=== PATIENT | female | born 1945 | race Caucasian/White ===

== ENCOUNTER 2017-09-11 16:28 | Emergency (ER) | payer MEDICARE, BC, OTHER ==
[2017-09-11] MEDS: ONDANSETRON 4MG/2ML VIAL (J2405) IV (17:15)
[2017-09-11] MEDS: KETOROLAC 30 MG/ML VIAL (J1885) IV (17:15)
[2017-09-11] MEDS: NS 500 ML IV ×2 (17:15→18:25)
[2017-09-11 17:40] LABS: BASO # 0.1 10^3/uL (0.0-0.2); BASO % 1.1 % (0.0-1.0); EOS # 0.8 10^3/uL (0.0-0.50); EOS % 5.8 % (0.0-3.0); HEMATOCRIT 43.4 % (36.0-47.0); HEMOGLOBIN 14.4 g/dl (12.0-16.0); IMMATURE GRANULOCYTE # 0.1 10^3/uL (0-0); IMMATURE GRANULOCYTE % 0.4 % (0-0); LYMPH # 1.4 10^3/uL (1.5-4.5); LYMPH % 10.2 % (24.0-44.0); MEAN CORPUSCULAR HEMOGLOBIN 29.7 pg (27.0-33.0); MEAN CORPUSCULAR HGB CONC 33.2 g/dl (32.0-36.5); MEAN CORPUSCULAR VOLUME 89.5 fl (80.0-96.0); MONO # 0.8 10^3/uL (0.0-0.8); NEUTROPHILS # 10.1 10^3/uL (1.8-7.7); NEUTROPHILS % 76.5 % (36.0-66.0); PLATELET COUNT, AUTOMATED 330 10^3/uL (150-450); RED BLOOD COUNT 4.85 10^6/uL (4.00-5.40); RED CELL DISTRIBUTION WIDTH 13.7 % (11.5-14.5); WHITE BLOOD COUNT 13.2 10^3/uL (4.0-10.0)
[2017-09-11 17:45] LABS: KETONE, URINE AUTO RFX TRACE mg/dL (NEGATIVE); MUCUS, URINE RFX SMALL (NEGATIVE); NITRITE, URINE AUTO RFX NEGATIVE (NEGATIVE); RBC, URINE AUTO RFX 10 /HPF (0-3); SQUAM EPITHELIAL CELL UR AURFX 1 /HPF (0-6); WBC, URINE AUTO RFX 7 /HPF (0-3)
[2017-09-11 17:46] LABS: LEUKOCYTE ESTERASE UR AUTO RFX TRACE (NEGATIVE)
[2017-09-11 18:05] LABS: ALBUMIN 3.8 GM/DL (3.2-5.2); ALKALINE PHOSPHATASE 151 U/L (45-117); ALT/SGPT 53 U/L (12-78); ANION GAP 10 MEQ/L (8-16); AST/SGOT 36 U/L (7-37); BILIRUBIN,DIRECT 0.1 MG/DL (0.0-0.2); BILIRUBIN,TOTAL 0.5 MG/DL (0.2-1.0); BLOOD UREA NITROGEN 19 MG/DL (7-18); CALCIUM LEVEL 9.1 MG/DL (8.8-10.2); CARBON DIOXIDE LEVEL 24 MEQ/L (21-32); CHLORIDE LEVEL 108 MEQ/L (98-107); CREATININE FOR GFR 1.37 MG/DL (0.55-1.02); GLOMERULAR FILTRATION RATE 40.3 (>39); GLUCOSE, FASTING 151 MG/DL (70-100); LIPASE 95 U/L (73-393); POTASSIUM SERUM 4.3 MEQ/L (3.5-5.1); SODIUM LEVEL 142 MEQ/L (136-145); TOTAL PROTEIN 7.6 GM/DL (6.4-8.2)
[2017-09-11 18:20] LABS: LACTIC ACID SEPSIS PROTOCOL 3.7 MMOL/L (0.4-2.0)
[2017-09-11 20:26] LABS: ANION GAP 7 MEQ/L (8-16); BLOOD UREA NITROGEN 19 MG/DL (7-18); CALCIUM LEVEL 8.4 MG/DL (8.8-10.2); CARBON DIOXIDE LEVEL 27 MEQ/L (21-32); CHLORIDE LEVEL 114 MEQ/L (98-107); CREATININE FOR GFR 1.21 MG/DL (0.55-1.02); GLOMERULAR FILTRATION RATE 46.6 (>39); GLUCOSE, FASTING 143 MG/DL (70-100); POTASSIUM SERUM 4.7 MEQ/L (3.5-5.1); SODIUM LEVEL 148 MEQ/L (136-145)
[2017-09-11 20:30] LABS: LACTIC ACID SEPSIS PROTOCOL 1.5 MMOL/L (0.4-2.0)
[2017-09-11] MEDS: OXYCODONE/APAP 5MG/325MG(BULK FOR ED) 1 TABLET PO (20:50)
== END 2017-09-11 20:57 | disposition home or self-care (01) ==
LOC: M ED 16:28
DX: N20.1 Calculus of ureter (principal); E03.9 Hypothyroidism, unspecified; Z98.1 Arthrodesis status; Z88.1 Allergy status to other antibiotic agents; Z88.3 Allergy status to other anti-infective agents; Z79.899 Other long term (current) drug therapy; Z79.82 Long term (current) use of aspirin
CPT/HCPCS: J2405

== ENCOUNTER → 2017-09-20 | Outpatient (REF) | payer MEDICARE, OTHER ==
[2017-09-20 15:08] LABS: APPEARANCE, URINE CLOUDY (CLEAR); BACTERIA, URINE AUTO NEGATIVE (NEGATIVE); BILIRUBIN, URINE AUTO NEGATIVE (NEGATIVE); BLOOD, URINE BLOOD NEGATIVE (NEGATIVE); COLOR, URINE YELLOW (YELLOW); GLUCOSE, URINE (UA) AUTO NEGATIVE (NEGATIVE); KETONE, URINE AUTO TRACE mg/dL (NEGATIVE); LEUKOCYTE ESTERASE, URINE AUTO 2+ (NEGATIVE); MUCUS, URINE SMALL (NEGATIVE); NITRITE, URINE AUTO NEGATIVE (NEGATIVE); PROTEIN, URINE AUTO NEGATIVE (NEGATIVE); RBC, URINE AUTO 2 /HPF (0-3); SPECIFIC GRAVITY URINE AUTO 1.029 (1.002-1.035); SQUAMOUS EPITHELIAL CELL UR AU 4 /HPF (0-6); TRANSITIONAL EPITHELIAL AUTO 1 /HPF; URIC ACID CRYSTALS LARGE; WBC, URINE AUTO 12 /HPF (0-3)
== END ==
LOC: M SMT 13:08
DX: N13.2 Hydronephrosis with renal and ureteral calculous obstruction (principal)
CPT/HCPCS: 81001

== ENCOUNTER → 2018-10-13 | Outpatient (CLI) | payer MEDICARE, OTHER ==
[~2018-10-13] MED LIST: ADV250INH INH; ASPI325T PO; BUSP15TA47 PO; ESCI10TA2 PO; FLOM0.4C39 PO; FLON1SPR; GABA-1171 PO; LEVO25TA5 PO; LORA0.5T11 PO; RANI300T PO; SIMV20TA2 PO; TRAM50TA2 PO
--- NOTE | 2018-10-23 00:42 | ECWPNPC ---
PATIENT NAME: SANTOSH ARNDT : 1945 GENDER: FEMALE VISIT DATE: 10/13/2018 DISCHARGE DATE: 10/13/18 1032 VISIT LOCKED DATE TIME: PHYSICIAN: SUSANNA FRANCO MD RESOURCE: SUSANNA FRANCO MD REASON FOR APPOINTMENT 1. BACK PAIN HISTORY OF PRESENT ILLNESS FALL RISK SCREENING: SCREENING : NO FALLS IN THE PAST YEAR. PAIN SCREENING: PATIENT HAS A COMPLAINT OF ACUTE OR CHRONIC PAIN :YES 72 YEAR OLD FEMALE PATIENT WITH A HISTORY OF CHRONIC LOW BACK PAIN. THE PATIENT DESCRIBES THE PAIN SHARP AND INTERMITTENT WITH A PAIN SCORE OF 0-7/10 DEPENDING ON PHYSICAL ACTIVITY. THE PATIENT SAYS THAT SHE HAS HAD THIS PAIN FOR MANY YEARS AND DOES NOT RECALL A SPECIFIC INCIDENT THAT CAUSED HER PAIN TO START. THE PATIENT SAYS THAT HER PAIN INCREASES WHEN SHE IS DOING A LOT OF ACTIVITY FOR LONG PERIODS OF TIME. THE PATIENT SAYS THAT SHE HAS TRIED SEVERAL OPTIONS FOR PAIN MANAGEMENT IN THE PAST INCLUDING PHYSICAL THERAPY, CHIROPRACTOR, MEDICATION, AND INJECTIONS. THE PATIENT SAYS THAT SHE HAS A HISTORY OF ARTHRITIS OVER BOTH KNEES. PATIENT DENIES UNEXPLAINABLE WEIGHT LOSS, FEVER, CHILLS, NEW CHANGES ON HER URINARY OR BOWEL CONTROL. CURRENT MEDICATIONS TAKING LEXAPRO 10 MG TABLET 1 TABLET ORALLY ONCE A DAY TAKING LEVOTHYROXINE SODIUM 25 MCG TABLET 1 TABLET ON AN EMPTY STOMACH IN THE MORNING ORALLY ONCE A DAY TAKING OMEPRAZOLE 40 MG CAPSULE DELAYED RELEASE 1 CAPSULE ORALLY ONCE A DAY TAKING ASA 2 81 MG TABS ORAL TAKING ZYRTEC ALLERGY 10 MG TABLET 1 TABLET NEEDED ORALLY ONCE A DAY TAKING FLONASE ALLERGY RELIEF 50 MCG/ACT SUSPENSION 1 SPRAY IN EACH NOSTRIL NASALLY ONCE A DAY TAKING ADVAIR DISKUS 250-50 MCG/DOSE AEROSOL POWDER BREATH ACTIVATED 1 PUFF INHALATION TWICE A DAY TAKING TRAMADOL HCL 50 MG TABLET 1 TABLET NEEDED ORALLY EVERY 6 HRS TAKING TENS THERAPY PAIN RELIEF - DEVICE TAKING GABAPENTIN 100 MG CAPSULE 1 CAPSULE ORALLY TWICE A DAY TAKING ROSUVASTATIN CALCIUM 5 MG TABLET 1 TABLET ORALLY ONCE A DAY TAKING CYCLOBENZAPRINE HCL 5 MG TABLET 1 TABLET NEEDED ORALLY THREE TIMES A DAY NOT-TAKING SIMVASTATIN 20 MG TABLET 1 TABLET IN THE EVENING ORALLY ONCE A DAY MEDICATION LIST REVIEWED AND RECONCILED WITH THE PATIENT PAST MEDICAL HISTORY CHRONIC BACK PAIN DDD HYPOTHYROIDISM ALLERGIES ELEVATED CHOLESTEROL DEPRESSION GERD OSTEOARTHRITIS ANXIETY ALLERGIES CLARITHROMYCIN: ANAPHYLAXIS: ALLERGY SPORANOX: HIVES: ALLERGY SURGICAL HISTORY HYSTERECTOMY GALLBLADDER REMOVAL BILATERAL TORN MENISCUS FUSION OF CERVIAL NECK SINUS SURGERY X3 FAMILY HISTORY FATHER: MOTHER: DAUGHTER(S): , DIAGNOSED WITH CANCER 1DAUGHTER(S) . DAUGHTER PASSED FROM CANCER OF THE BILE DUCTS 2 YRS AGO. PATIENT HAS KIDNEY STONES AND PATIENT IS ADOPTED. SOCIAL HISTORY GENERAL: TOBACCO USE ARE YOU A:NONSMOKER ALCOHOL SCREENING DID YOU HAVE A DRINK CONTAINING ALCOHOL IN THE PAST YEAR?YES HOW OFTEN DID YOU HAVE A DRINK CONTAINING ALCOHOL IN THE PAST YEAR?MONTHLY OR LESS (1 POINT) HOW MANY DRINKS DID YOU HAVE ON A TYPICAL DAY WHEN YOU WERE DRINKING IN THE PAST YEAR?1 OR 2 (0 POINTS) HOW OFTEN DID YOU HAVE SIX OR MORE DRINKS ON ONE OCCASION IN THE PAST YEAR?NEVER (0 POINTS) POINTS1 INTERPRETATIONNEGATIVE RECREATIONAL DRUG USE DRUG USE?NO CAFFEINE CAFFEINE USE?YES HOW OFTEN AND HOW MUCH? COFFEE AD[employer] [id number] YARSANI LANGUAGE LANGUAGES SPOKEN:ARABIC EDUCATION LEVEL OF EDUCATION:FINISHED COLLEGE LEARNING BARRIERS / SPECIAL NEEDS BARRIERS TO LEARNING?NO HEARING IMPAIRED?YES :HEARING AIDES VISION IMPAIRED?NO COGNITIVELY IMPAIRED?NO READINESS TO LEARN?YES LEARNING PREFERENCES?YES :HANDOUTS, DEMONSTRATION/VERBAL INSTRUCTION LEARNING CAPABILITIES PRESENT?YES EMOTIONAL BARRIERS?NO SPECIAL DEVICES?NO SUBMARINE WORKER NEEDED?NO OCCUPATION: RETIRED. DIET: REGULAR. MARITAL STATUS: . PAIN CLINIC PFS, CLERGY, PUBLIC HEALTH REFERRALS HAS THE PATIENT BEEN EDUCATED REGARDING HIS/HER PLAN OF CARE?YES HAS THE PATIENT BEEN EDUCATED REGARDING PAIN, THE RISK FOR PAIN, THE IMPORTANCE OF EFFECTIVE PAIN MANAGEMENT, AND THE PAIN ASSESSMENT PROCESS?YES ADVANCE DIRECTIVE ADVANCE DIRECTIVE DISCUSSED WITH PATIENT:YES HCP - PATEL QUEEN (STEP DAUGHTER) & HANNAH OH (FRIEND), DOCUMENT NOT PROVIDED. REVIEWED WITH PATIENT 10/13/18 6639 JS. HOSPITALIZATION/MAJOR DIAGNOSTIC PROCEDURE SURGERY RELATED CERVICAL FRACTURE REVIEW OF SYSTEMS REVIEWED BY: PROVIDER: SUSANNA FRANCO MD . CONSTITUTIONAL: ANY CHANGE IN YOUR MEDICAL CONDITION? NO . CHILLS NO . FEVER NO . INFECTION: DO YOU HAVE NEW INFECTIONS? NO . DO YOU HAVE HISTORY OF MRSA? NO . MUSCULOSKELETAL: ANY NEW PATTERNS OF PAIN OR NUMBNESS? NO . SYTEMIC LUPUS NO . GASTROENTEROLOGY: ANY NEW CHANGE IN BOWEL CONTROL? NO . BARRETTS ESOPHAGUS NO . CIRRHOSIS NO . HEPATITIS NO . LIVER FAILURE NO . ACID REFLUX YES . UNEXPLAINED WEIGHT LOSS NO . GENITOURINARY: ANY NEW CHANGE IN BLADDER CONTROL? NO . IS THERE A CHANCE YOU COULD BE ? NO . HEMATOLOGY/LYMPH: DO YOU TAKE ANY BLOOD THINNERS? (FOR EXAMPLE- COUMADIN, PLAVIX, AGGRENOX, PLATEL, PRADAXA, OR XARELTO) NO . WHEN WAS YOUR LAST DOSE? DATE: TIME: . LOW PLATELET COUNT NO . SICKLE CELL DISEASE NO . VON WILLIEBRANDS NO . FACTOR V LEIDEN NO . THALLASEMIA NO . ANEMIA NO . EASY BRUISING NO . NEUROLOGY: HAVE YOU FALLEN IN THE PAST 12 MONTHS? NO . ANY NEW EXTREMITY NUMBNESS OR WEAKNESS? NO . HEAD INJURY NO . DEMENTIA NO . CEREBRAL PALSY NO . MULTIPLE SCLEROSIS NO . DIZZINESS NO . HEADACHE NO . STROKES NO . VERTIGO NO . CARDIOLOGY: DO YOU HAVE A PACEMAKER OR DEFIBRILLATOR? NO . ANGINA NO . HEART ATTACK NO . HEART SURGERY NO . CONGESTIVE HEART FAILURE/FLUID OVERLOAD NO . CHEST PAIN NO . HIGH BLOOD PRESSURE NO . IRREGULAR HEART BEAT YES, STATES OCCASSIONALLY, SAW NETWORK SYSTEMS ENGINEER REGARDING AND THEY STATED THERE WAS NOTHING TO BE CONCERNED ABOUT AND THAT IT WAS JUST A PROCESS OF AGING . RESPIRATORY: HAVE YOU BEEN SICK IN THE PAST WEEK? NO . FEVER NO . FLU LIKE SYMPTOMS? NO . CPAP NO . BYPAP NO . ASTHMA YES, STATES SHE BECOMES WHEEZY RELATED TO SINUS INFECTIONS . EMPHYSEMA NO . CHRONIC LUNG DISEASES NO . SHORTNESS OF BREATH ON EXERTION NO . COUGH NO . SNORING NO . INTEGUMENTARY: DO YOU HAVE ANY RASHES OR OPEN SORES? NO . ALLERGIC/IMMUNO: ARE YOU ALLERGIC TO IV DYE? NO . ANY NEW ALLERGIES? NO . PSYCHIATRIC: DO YOU HAVE THOUGHTS OF HURTING YOURSELF OR SOMEONE ELSE? NO . ARE YOU ABUSED, NEGLECTED, OR IN AN UNSAFE ENVIRONMENT? NO . ENDOCRINOLOGY: ARE YOU DIABETIC? NO . THYROID DISORDER HYPOTHYROID . OTHER: DO YOU NEED ANY PRESCRIPTIONS? NO . IF YES, PLEASE LIST: ____ . ANY NEW PROBLEMS WITH YOUR MEDICATIONS? NO . WHEN DID YOU LAST EAT? ____ . WHEN DID YOU LAST DRINK? ____ . WHAT DID YOU LAST DRINK? ____ . NAME OF PERSON DRIVING YOU HOME? ____ . DO YOU HAVE ANY OTHER QUESTIONS OR CONCERNS NO . VITAL SIGNS WT 171.2 LBS, HT 62 IN, BMI 31.31 INDEX, BP 133/71 MM HG, HR 96 /MIN, RR 18 /MIN, TEMP 97.3 F, OXYGEN SAT % 95%, SAFE IN ENV? (Y/N) YES, NA INITIALS AW 0916, REVIEWED BY: JS. EXAMINATION GENERAL EXAMINATION: PATIENT IS ALERT O X 3 AND COOPERATIVE. LUNGS CLEAR, TO AUSCULTATION. HEART: NO MURMURS OR GALLOPS; FACIAL CRANIAL NERVES ARE GROSSLY NORMAL. GOOD SYMMETRY OF FACIAL MUSCLE MOVEMENT. NORMAL VISUAL LITTLE. PATIENT IS LIMPING FROM HER RIGHT LEG. TENDERNESS IN THE LOW BACK AREA. PRESENCE OF TRIGGER POINTS AND BANDS OF TISSUE WITH RESTRICTION OF MOVEMENT OF THE BACK. MRI OF THE LUMBAR SPINE DONE ON 12/30/2017 SHOWS FACET ARTHROPATHY CHANGES AT MULTIPLE LEVELS. MRI OF THE THORACIC SPINE DONE ON 12/30/2017 SHOWS FACET ARTHROPATHY CHANGES AT MULTIPLE LEVELS AND A COMPRESSION FRACTURE AT T4 THROUGH T6. 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 ARNDT'S PAIN MANAGEMENT CASE. THE PATIENT WILL FOLLOW UP WITH HER PRIMARY REGARDING HER CALCIUM LEVELS DUE TO THE HISTORY OF COMPRESSION FRACTURES. DUE TO THE TRIGGER POINTS, BANDS OF TISSUE, AND RESTRICTION OF MOVEMENT, I WOULD LIKE TO MOVE FORWARD WITH A TRIGGER POINT INJECTION AT THIS TIME. WE DISCUSSED THE BENEFITS, RISKS, AND ALTERNATIVES OF THE INJECTION AND THE PATIENT WOULD LIKE TO PROCEED. DEPENDING ON THE RESULTS OF THE INJECTION, THE PATIENT WILL CONSIDER A THERAPEUTIC LUMBAR FACET BLOCK. THE PATIENT WILL FOLLOW UP 3 WEEKS AFTER THE INJECTION. INSTRUCTIONS WERE GIVEN, QUESTIONS WERE ANSWERED, PATIENT REPORTS UNDERSTANDING AND AGREES WITH THE PLAN. I, BIN PORRAS, DOCUMENTED THE ABOVE INFORMATION ACTING A SCRIBE FOR DR. FRANCO. I HAVE REVIEWED THE ABOVE DOCUMENT, WRITTEN BY BIN MURRAY AND I VERIFY THAT IT IS ACCURATE. DEAR DR. RAE:THANK YOU FOR YOUR KIND REFERRAL OF MRS. ARNDT. IF YOU WANT TO DISCUSS HER CASE WITH ME PLEASE CALL ME AT THE PAIN CENTER AT [phone]. SINCERELY,SUSANNA FRANCO, [facility]. PROCEDURE CODES FA211 ESTABILISHED PATIENT [facility] FACILITY CHARGE G1341 CURRENT MEDS W/DOSAGES DOCUMENTED G0745 PAIN ASSESS POS TOOL F/U PLAN DOC DISPOSITION & COMMUNICATION FOLLOW UP TPI & F/U 3 WEEKS AFTER ELECTRONICALLY SIGNED BY SUSANNA FRANCO MD, ON 10/22/2018 AT 08:01 AM EDT DISCLAIMER : THIS IS A VISIT SUMMARY EXTRACTED FROM THE [employer] CHART. IT IS NOT A COPY OF THE [employer] PROGRESS NOTE. MTDD
== END ==
LOC: M PAIN 09:15
PROVIDERS: ATTEND Anesthesiology
DX: M79.18 Myalgia, other site (principal); M47.814 Spondylosis without myelopathy or radiculopathy, thoracic region; M47.816 Spondylosis without myelopathy or radiculopathy, lumbar region; E03.9 Hypothyroidism, unspecified; E78.00 Pure hypercholesterolemia, unspecified; Z86.59 Personal history of other mental and behavioral disorders; K21.9 Gastro-esophageal reflux disease without esophagitis; M19.90 Unspecified osteoarthritis, unspecified site; J45.909 Unspecified asthma, uncomplicated; Z88.1 Allergy status to other antibiotic agents; Z88.8 Allergy status to other drugs, medicaments and biological substances; Z79.82 Long term (current) use of aspirin; Z79.899 Other long term (current) drug therapy

== ENCOUNTER → 2018-11-01 | Outpatient (CLI) | payer MEDICARE, OTHER ==
[~2018-11-01] MED LIST changes: +BUPIVACAINE HCL 0.25% 10 ML VIAL As Ordered ONE; +BUPIVACAINE HCL 0.25% 30 ML VIAL As Ordered ONE; +TRIAMCINOLONE ACETONIDE SUSP 40 MG/ML VIAL (J3301) As Ordered ONE; +diazePAM 5 MG TAB As Ordered ONE
--- NOTE | 2018-11-13 00:24 | ECWPNPC ---
PATIENT NAME: SANTOSH ARNDT : 1945 GENDER: FEMALE VISIT DATE: 11/01/2018 DISCHARGE DATE: 11/01/18 1102 VISIT LOCKED DATE TIME: PHYSICIAN: SUSANNA FRANCO MD RESOURCE: SUSANNA FRANCO MD REASON FOR APPOINTMENT 1. TPI HISTORY OF PRESENT ILLNESS HISTORY OF PRESENT ILLNESS: PAIN THE PATIENT DESCRIBES THE PAIN... FALL RISK SCREENING: SCREENING : NO FALLS IN THE PAST YEAR. CURRENT MEDICATIONS TAKING LEXAPRO 10 MG TABLET 1 TABLET ORALLY ONCE A DAY, NOTES: 0800 TAKING LEVOTHYROXINE SODIUM 25 MCG TABLET 1 TABLET ON AN EMPTY STOMACH IN THE MORNING ORALLY ONCE A DAY, NOTES: 0800 TAKING OMEPRAZOLE 40 MG CAPSULE DELAYED RELEASE 1 CAPSULE ORALLY ONCE A DAY, NOTES: 0800 TAKING ASA 2 81 MG TABS ORAL , NOTES: 10/31/181899 TAKING ZYRTEC ALLERGY 10 MG TABLET 1 TABLET NEEDED ORALLY ONCE A DAY, NOTES: NONE RECENT TAKING FLONASE ALLERGY RELIEF 50 MCG/ACT SUSPENSION 1 SPRAY IN EACH NOSTRIL NASALLY ONCE A DAY, NOTES: 10/31/181899 TAKING ADVAIR DISKUS 250-50 MCG/DOSE AEROSOL POWDER BREATH ACTIVATED 1 PUFF INHALATION TWICE A DAY, NOTES: NONE RECENT TAKING TRAMADOL HCL 50 MG TABLET 1 TABLET NEEDED ORALLY EVERY 6 HRS, NOTES: 10/30/18 TAKING TENS THERAPY PAIN RELIEF - DEVICE TAKING GABAPENTIN 100 MG CAPSULE 1 CAPSULE ORALLY TWICE A DAY, NOTES: 10/31/181899 TAKING ROSUVASTATIN CALCIUM 5 MG TABLET 1 TABLET ORALLY ONCE A DAY, NOTES: 10/31/181899 TAKING CYCLOBENZAPRINE HCL 5 MG TABLET 1 TABLET NEEDED ORALLY THREE TIMES A DAY, NOTES: 10/30/18 NOT-TAKING SIMVASTATIN 20 MG TABLET 1 TABLET IN THE EVENING ORALLY ONCE A DAY MEDICATION LIST REVIEWED AND RECONCILED WITH THE PATIENT PAST MEDICAL HISTORY CHRONIC BACK PAIN DDD HYPOTHYROIDISM ALLERGIES ELEVATED CHOLESTEROL DEPRESSION GERD OSTEOARTHRITIS ANXIETY ALLERGIES CLARITHROMYCIN: ANAPHYLAXIS - ALLERGY SPORANOX: HIVES - ALLERGY SURGICAL HISTORY HYSTERECTOMY GALLBLADDER REMOVAL BILATERAL TORN MENISCUS FUSION OF CERVIAL NECK SINUS SURGERY X3 FAMILY HISTORY FATHER: MOTHER: DAUGHTER(S): , DIAGNOSED WITH CANCER 1DAUGHTER(S) . DAUGHTER PASSED FROM CANCER OF THE BILE DUCTS 2 YRS AGO. PATIENT HAS KIDNEY STONES AND PATIENT IS ADOPTED. SOCIAL HISTORY GENERAL: TOBACCO USE ARE YOU A:NONSMOKER LATEX QUESTIONNAIRE LATEX ALLERGY : HAVE YOU EVER DEVELOPED ANY TYPE OF REACTION AFTER HANDLING LATEX PRODUCTS SUCH RUBBER GLOVES, CONDOMS, DIAPHRAGMS, BALLOONS, SOCKS, OR UNDERWEAR?NO LATEX ALLERGY : HAVE YOU EVER DEVELOPED ANY TYPE OF REACTION DURING OR AFTER DENTAL APPOINTMENT, VAGINAL/RECTAL EXAMINATION, SURGICAL PROCEDURE, OR ANY OTHER EXPOSURE?NO LATEX RISK : HAVE YOU EVER HAD ANY DIFFICULTY BREATHING OR HIVES AFTER EATING OR HANDLING ANY FRUITS, OR VEGETABLES; SUCH KIWI, BANANAS, STONE FRUITS, OR CHESTNUTSNO LATEX RISK : DO YOU HAVE A PREVIOUS PERSONAL HISTORY OF MORE THAN NINE SURGERIES, SPINA BIFIDA, OR REPEATED CATHERTIZATIONS? NO LATEX RISK : ARE YOU FREQUENTLY EXPOSED TO LATEX PRODUCTS IN YOUR OCCUPATION?NO DATE ASKED : 11/01/2018 ALCOHOL SCREENING DID YOU HAVE A DRINK CONTAINING ALCOHOL IN THE PAST YEAR?YES HOW OFTEN DID YOU HAVE A DRINK CONTAINING ALCOHOL IN THE PAST YEAR?MONTHLY OR LESS (1 POINT) HOW MANY DRINKS DID YOU HAVE ON A TYPICAL DAY WHEN YOU WERE DRINKING IN THE PAST YEAR?1 OR 2 (0 POINTS) HOW OFTEN DID YOU HAVE SIX OR MORE DRINKS ON ONE OCCASION IN THE PAST YEAR?NEVER (0 POINTS) POINTS1 INTERPRETATIONNEGATIVE RECREATIONAL DRUG USE DRUG USE?NO CAFFEINE CAFFEINE USE?YES HOW OFTEN AND HOW MUCH? COFFEE DENOMINATIONAL [id number] [employer] LANGUAGE LANGUAGES SPOKEN:YORUBA EDUCATION LEVEL OF EDUCATION:FINISHED COLLEGE LEARNING BARRIERS / SPECIAL NEEDS BARRIERS TO LEARNING?NO HEARING IMPAIRED?YES :HEARING AIDES VISION IMPAIRED?NO COGNITIVELY IMPAIRED?NO READINESS TO LEARN?YES LEARNING PREFERENCES?YES :HANDOUTS, DEMONSTRATION/VERBAL INSTRUCTION LEARNING CAPABILITIES PRESENT?YES EMOTIONAL BARRIERS?NO SPECIAL DEVICES?NO SKI LIFT OPERATOR NEEDED?NO OCCUPATION: RETIRED. DIET: REGULAR. MARITAL STATUS: . PAIN CLINIC PFS, CLERGY, PUBLIC HEALTH REFERRALS HAS THE PATIENT BEEN EDUCATED REGARDING HIS/HER PLAN OF CARE?YES HAS THE PATIENT BEEN EDUCATED REGARDING PAIN, THE RISK FOR PAIN, THE IMPORTANCE OF EFFECTIVE PAIN MANAGEMENT, AND THE PAIN ASSESSMENT PROCESS?YES ADVANCE DIRECTIVE ADVANCE DIRECTIVE DISCUSSED WITH PATIENT:YES HCP - PATEL QUEEN (STEP DAUGHTER) & HANNAH OH (FRIEND), DOCUMENT NOT PROVIDED. REVIEWED WITH PATIENT 10/13/18 1627 JSREVIEWED WITH PATIENT 11/01/18 1009 JS. HOSPITALIZATION/MAJOR DIAGNOSTIC PROCEDURE SURGERY RELATED CERVICAL FRACTURE REVIEW OF SYSTEMS REVIEWED BY: PROVIDER: . CONSTITUTIONAL: ANY CHANGE IN YOUR MEDICAL CONDITION? NO . CHILLS NO . FEVER NO . INFECTION: DO YOU HAVE NEW INFECTIONS? NO . DO YOU HAVE HISTORY OF MRSA? NO . MUSCULOSKELETAL: ANY NEW PATTERNS OF PAIN OR NUMBNESS? NO . GASTROENTEROLOGY: ANY NEW CHANGE IN BOWEL CONTROL? NO . GENITOURINARY: ANY NEW CHANGE IN BLADDER CONTROL? NO . IS THERE A CHANCE YOU COULD BE ? NO . HEMATOLOGY/LYMPH: DO YOU TAKE ANY BLOOD THINNERS? (FOR EXAMPLE- COUMADIN, PLAVIX, AGGRENOX, PLATEL, PRADAXA, OR XARELTO) NO . WHEN WAS YOUR LAST DOSE? DATE: TIME: . NEUROLOGY: HAVE YOU FALLEN IN THE PAST 12 MONTHS? NO . ANY NEW EXTREMITY NUMBNESS OR WEAKNESS? NO . CARDIOLOGY: DO YOU HAVE A PACEMAKER OR DEFIBRILLATOR? NO . RESPIRATORY: HAVE YOU BEEN SICK IN THE PAST WEEK? NO . FEVER NO . FLU LIKE SYMPTOMS? NO . COUGH NO . INTEGUMENTARY: DO YOU HAVE ANY RASHES OR OPEN SORES? NO . ALLERGIC/IMMUNO: ARE YOU ALLERGIC TO IV DYE? NO . ANY NEW ALLERGIES? NO . PSYCHIATRIC: DO YOU HAVE THOUGHTS OF HURTING YOURSELF OR SOMEONE ELSE? NO . ARE YOU ABUSED, NEGLECTED, OR IN AN UNSAFE ENVIRONMENT? NO . ENDOCRINOLOGY: ARE YOU DIABETIC? NO . OTHER: DO YOU NEED ANY PRESCRIPTIONS? NO . IF YES, PLEASE LIST: ____ . ANY NEW PROBLEMS WITH YOUR MEDICATIONS? NO . WHEN DID YOU LAST EAT? ____10/31/181999 . WHEN DID YOU LAST DRINK? ____11/01/18 0800 . WHAT DID YOU LAST DRINK? ____WATER . NAME OF PERSON DRIVING YOU HOME? ____JIM () . DO YOU HAVE ANY OTHER QUESTIONS OR CONCERNS NO . VITAL SIGNS WT 169.6 LBS, HT 62 IN, BMI 31.02 INDEX, BP 125/75 MM HG, HR 95 /MIN, RR 18 /MIN, TEMP 97.6 F, OXYGEN SAT % 92%, SAFE IN ENV? (Y/N) YES, NA INITIALS AW 1001, REVIEWED BY: JS. ASSESSMENTS MYALGIA, OTHER SITE - M79.18 (PRIMARY) PROCEDURES PN TRIGGER POINT INJECTION WITH STEROIDS PRE PROCEDURE DIAGNOSIS 1. MYALGIA 2. PAIN AT LEFT THORACIC AREA POST PROCEDURE DIAGNOSIS 1. MYALGIA 2. PAIN AT LEFT THORACIC AREA PROCEDURE TRIGGER POINT INJECTION AT LEFT THORACIC AREA SURGEON DR. SUSANNA FRANCO STATOR PLATE WASHER NONE ANESTHESIA LOCAL PRE PROCEDURE NOTE THE PATIENT HAS A HISTORY OF CHRONIC PAIN AT THE LEFT THORACIC AREA. I EVALUATE THE PATIENT AND REVIEWED THE CHART. THERE IS EVIDENCE OF BANDS OF TISSUE WITH RESTRICTION OF MOVEMENT AND PRESENCE OF TRIGGER POINT AT THE AFFECTED AREA. I WENT OVER THE RISKS, ALTERNATIVES, AND BENEFITS ASSOCIATED WITH THIS PROCEDURE. THE PATIENT WOULD LIKE TO PROCEED AND GIVE CONSENT TO PERFORMED THE PROCEDURE. THE PATIENT DENIES UNEXPLAINABLE WEIGHT LOSS, FEVER, CHILLS, OR NEW CHANGES IN URINARY OR BOWEL CONTROL DESCRIPTION OF PROCEDURE THE PATIENT WAS BROUGHT TO THE PROCEDURE ROOM AND PLACED IN THE SITTING POSITION. THE AREA WAS CLEANED WITH ALCOHOL. THE PROCEDURE WAS DONE USING ASEPTIC STERILE TECHNIQUE. I CHECKED LATERALITY AND THE LEVEL WHERE THE PROCEDURE WAS GOING TO BE PERFORMED WITH THE PATIENT AND THE SUPPORTING STAFF AT THE MOMENT OF THE TIME OUT IN THE PROCEDURE ROOM. USING A 25-GAUGE NEEDLE, TRIGGER POINTS WERE INJECTED AT THE LEFT THORACIC AREA WITH A TOTAL OF 40 ML OF BUPIVACAINE 0.25% AND KENALOG 40 MG. THERE WAS NO EVIDENCE OF BLOOD, PARESTHESIA OR CEREBROSPINAL FLUID DURING THE PROCEDURE. THE PATIENT WAS SENT TO THE RECOVERY ROOM. THE PATIENT WAS MOVING THE EXTREMITIES AND DOING WELL. THERE WAS NO COMPLICATION DURING THE PROCEDURE POST PROCEDURE NOTE THE PATIENT WILL BE SEEN IN A FOLLOW UP IN THE NEXT FEW WEEKS. INSTRUCTIONS WERE GIVEN, QUESTIONS WERE ANSWERED, AND THE PATIENT EXPRESSED UNDERSTANDING AND AGREES WITH THE PLAN. I, BIN PORRAS, DOCUMENTED THE ABOVE INFORMATION ACTING A SCRIBE FOR DR. FARNCO. I HAVE REVIEWED THE ABOVE DOCUMENT, WRITTEN BY BIN MURRAY AND I VERIFY THAT IT IS ACCURATE. PROCEDURE CODES 67892 INJ TRIGGER POINT /2 [facility] [place] DISPOSITION & COMMUNICATION FOLLOW UP 3 WEEKS ELECTRONICALLY SIGNED BY SUSANNA FRANCO MD, MD ON 11/12/2018 AT 07:31 PM EDT DISCLAIMER : THIS IS A VISIT SUMMARY EXTRACTED FROM THE [employer] CHART. IT IS NOT A COPY OF THE [employer] PROGRESS NOTE. QING
== END ==
LOC: M PAIN 09:45
PROVIDERS: ATTEND Anesthesiology
DX: M79.18 Myalgia, other site (principal); M54.6 Pain in thoracic spine; E03.9 Hypothyroidism, unspecified; K21.9 Gastro-esophageal reflux disease without esophagitis; M19.90 Unspecified osteoarthritis, unspecified site; F41.9 Anxiety disorder, unspecified; F32.9 Major depressive disorder, single episode, unspecified; Z79.82 Long term (current) use of aspirin; Z79.899 Other long term (current) drug therapy; Z88.1 Allergy status to other antibiotic agents; Z88.8 Allergy status to other drugs, medicaments and biological substances
CPT/HCPCS: 20552; J3301

== ENCOUNTER → 2018-11-22 | Outpatient (CLI) | payer MEDICARE, OTHER ==
[~2018-11-22] MED LIST changes: +ASPI-1 PO; -ASPI325T PO; -BUPIVACAINE HCL 0.25% 10 ML VIAL As Ordered ONE; -BUPIVACAINE HCL 0.25% 30 ML VIAL As Ordered ONE; -TRIAMCINOLONE ACETONIDE SUSP 40 MG/ML VIAL (J3301) As Ordered ONE; -diazePAM 5 MG TAB As Ordered ONE
--- NOTE | 2018-11-24 01:25 | ECWPNPC ---
PATIENT NAME: SANTOSH ARNDT : 1945 GENDER: FEMALE VISIT DATE: 11/22/2018 DISCHARGE DATE: 11/22/18 1056 VISIT LOCKED DATE TIME: PHYSICIAN: PATEL BAIN RESOURCE: PATEL BAIN REASON FOR APPOINTMENT 1. POST TPI HISTORY OF PRESENT ILLNESS HISTORY OF PRESENT ILLNESS: PAIN THE PATIENT DESCRIBES THE PAIN... PT IS A 71 YEAR OLD FEMALE WWITH HX OF CHRONIC LOW AND UPPER BACK PAIN. SHE HAS HAS TPI THORACIC REGION 10/31 WITH GOOD RESULT FOR AT LEAST 3 WEEKS. SHE SAYS SHE IS BEGINNING TO FEEL PAIN AGAIN.HER PAIN TODAY IS 3/10 BUT CAN GO UP TO 7/10 WITH MOVMENT. FALL RISK SCREENING: SCREENING :NO FALLS REPORTED IN THE LAST YEAR CURRENT MEDICATIONS TAKING LEXAPRO 10 MG TABLET 1 TABLET ORALLY ONCE A DAY TAKING LEVOTHYROXINE SODIUM 25 MCG TABLET 1 TABLET ON AN EMPTY STOMACH IN THE MORNING ORALLY ONCE A DAY TAKING OMEPRAZOLE 40 MG CAPSULE DELAYED RELEASE 1 CAPSULE ORALLY ONCE A DAY TAKING ASA 2 81 MG TABS ORAL TAKING ZYRTEC ALLERGY 10 MG TABLET 1 TABLET NEEDED ORALLY ONCE A DAY TAKING FLONASE ALLERGY RELIEF 50 MCG/ACT SUSPENSION 1 SPRAY IN EACH NOSTRIL NASALLY ONCE A DAY TAKING ADVAIR DISKUS 250-50 MCG/DOSE AEROSOL POWDER BREATH ACTIVATED 1 PUFF INHALATION TWICE A DAY TAKING TRAMADOL HCL 50 MG TABLET 1 TABLET NEEDED ORALLY EVERY 6 HRS TAKING TENS THERAPY PAIN RELIEF - DEVICE TAKING ROSUVASTATIN CALCIUM 5 MG TABLET 1 TABLET ORALLY ONCE A DAY TAKING CYCLOBENZAPRINE HCL 5 MG TABLET 1 TABLET NEEDED ORALLY THREE TIMES A DAY NOT-TAKING GABAPENTIN 100 MG CAPSULE 1 CAPSULE ORALLY TWICE A DAY NOT-TAKING SIMVASTATIN 20 MG TABLET 1 TABLET IN THE EVENING ORALLY ONCE A DAY MEDICATION LIST REVIEWED AND RECONCILED WITH THE PATIENT PAST MEDICAL HISTORY CHRONIC BACK PAIN DDD HYPOTHYROIDISM ALLERGIES ELEVATED CHOLESTEROL DEPRESSION GERD OSTEOARTHRITIS ANXIETY ALLERGIES CLARITHROMYCIN: ANAPHYLAXIS - ALLERGY SPORANOX: HIVES - ALLERGY SURGICAL HISTORY HYSTERECTOMY GALLBLADDER REMOVAL BILATERAL TORN MENISCUS FUSION OF CERVIAL NECK SINUS SURGERY X3 FAMILY HISTORY FATHER: MOTHER: DAUGHTER(S): , DIAGNOSED WITH CANCER 1DAUGHTER(S) . DAUGHTER PASSED FROM CANCER OF THE BILE DUCTS 2 YRS AGO. PATIENT HAS KIDNEY STONES AND PATIENT IS ADOPTED. SOCIAL HISTORY GENERAL: TOBACCO USE ARE YOU A:NONSMOKER LATEX QUESTIONNAIRE LATEX ALLERGY : HAVE YOU EVER DEVELOPED ANY TYPE OF REACTION AFTER HANDLING LATEX PRODUCTS SUCH RUBBER GLOVES, CONDOMS, DIAPHRAGMS, BALLOONS, SOCKS, OR UNDERWEAR?NO LATEX ALLERGY : HAVE YOU EVER DEVELOPED ANY TYPE OF REACTION DURING OR AFTER DENTAL APPOINTMENT, VAGINAL/RECTAL EXAMINATION, SURGICAL PROCEDURE, OR ANY OTHER EXPOSURE?NO LATEX RISK : HAVE YOU EVER HAD ANY DIFFICULTY BREATHING OR HIVES AFTER EATING OR HANDLING ANY FRUITS, OR VEGETABLES; SUCH KIWI, BANANAS, STONE FRUITS, OR CHESTNUTSNO LATEX RISK : DO YOU HAVE A PREVIOUS PERSONAL HISTORY OF MORE THAN NINE SURGERIES, SPINA BIFIDA, OR REPEATED CATHERTIZATIONS? NO LATEX RISK : ARE YOU FREQUENTLY EXPOSED TO LATEX PRODUCTS IN YOUR OCCUPATION?NO DATE ASKED : 11/22/2018 ALCOHOL SCREENING DID YOU HAVE A DRINK CONTAINING ALCOHOL IN THE PAST YEAR?YES HOW OFTEN DID YOU HAVE A DRINK CONTAINING ALCOHOL IN THE PAST YEAR?MONTHLY OR LESS (1 POINT) HOW MANY DRINKS DID YOU HAVE ON A TYPICAL DAY WHEN YOU WERE DRINKING IN THE PAST YEAR?1 OR 2 (0 POINTS) HOW OFTEN DID YOU HAVE SIX OR MORE DRINKS ON ONE OCCASION IN THE PAST YEAR?NEVER (0 POINTS) POINTS1 INTERPRETATIONNEGATIVE RECREATIONAL DRUG USE DRUG USE?NO CAFFEINE CAFFEINE USE?YES HOW OFTEN AND HOW MUCH? COFFEE PENTECOSTAL ESASTARI37 MUSLIM LANGUAGE LANGUAGES SPOKEN:SRI LANKAN EDUCATION LEVEL OF EDUCATION:FINISHED COLLEGE LEARNING BARRIERS / SPECIAL NEEDS BARRIERS TO LEARNING?NO HEARING IMPAIRED?YES :HEARING AIDES VISION IMPAIRED?NO COGNITIVELY IMPAIRED?NO READINESS TO LEARN?YES LEARNING PREFERENCES?YES :HANDOUTS, DEMONSTRATION/VERBAL INSTRUCTION LEARNING CAPABILITIES PRESENT?YES EMOTIONAL BARRIERS?NO SPECIAL DEVICES?NO STEM CUTTER NEEDED?NO OCCUPATION: RETIRED. DIET: REGULAR. MARITAL STATUS: . PAIN CLINIC PFS, CLERGY, PUBLIC HEALTH REFERRALS WAS THE PROVIDER NOTIFIED OF ANY PERTINENT INFO?YES HAS THE PATIENT BEEN EDUCATED REGARDING HIS/HER PLAN OF CARE?YES HAS THE PATIENT BEEN EDUCATED REGARDING PAIN, THE RISK FOR PAIN, THE IMPORTANCE OF EFFECTIVE PAIN MANAGEMENT, AND THE PAIN ASSESSMENT PROCESS?YES ADVANCE DIRECTIVE ADVANCE DIRECTIVE DISCUSSED WITH PATIENT:YES HCP - PATEL QUEEN (STEP DAUGHTER) & HANNAH OH (FRIEND), DOCUMENT NOT PROVIDED. REVIEWED WITH PATIENT 10/13/18 7930 JSREVIEWED WITH PATIENT 11/01/18 1003 JS. HOSPITALIZATION/MAJOR DIAGNOSTIC PROCEDURE SURGERY RELATED CERVICAL FRACTURE REVIEW OF SYSTEMS REVIEWED BY: PROVIDER: CHARISMA Navarro CONSTITUTIONAL: ANY CHANGE IN YOUR MEDICAL CONDITION? NO . CHILLS NO . FEVER NO . INFECTION: DO YOU HAVE NEW INFECTIONS? NO . DO YOU HAVE HISTORY OF MRSA? NO . MUSCULOSKELETAL: ANY NEW PATTERNS OF PAIN OR NUMBNESS? LEFT MID BACK . GASTROENTEROLOGY: ANY NEW CHANGE IN BOWEL CONTROL? NO . GENITOURINARY: ANY NEW CHANGE IN BLADDER CONTROL? NO . IS THERE A CHANCE YOU COULD BE ? NO . HEMATOLOGY/LYMPH: DO YOU TAKE ANY BLOOD THINNERS? (FOR EXAMPLE- COUMADIN, PLAVIX, AGGRENOX, PLATEL, PRADAXA, OR XARELTO) NO . WHEN WAS YOUR LAST DOSE? DATE: TIME: . NEUROLOGY: HAVE YOU FALLEN IN THE PAST 12 MONTHS? NO . ANY NEW EXTREMITY NUMBNESS OR WEAKNESS? YES . CARDIOLOGY: DO YOU HAVE A PACEMAKER OR DEFIBRILLATOR? NO . RESPIRATORY: HAVE YOU BEEN SICK IN THE PAST WEEK? YES, SINUS INFECTION DONE WITH ANTIBIOTICS . STILL SOUNDING LIKE SHE HAS SINUS CONGESTION . FEVER NO . FLU LIKE SYMPTOMS? NO . COUGH NO . INTEGUMENTARY: DO YOU HAVE ANY RASHES OR OPEN SORES? NO . ALLERGIC/IMMUNO: ARE YOU ALLERGIC TO IV DYE? NO . ANY NEW ALLERGIES? NO . PSYCHIATRIC: DO YOU HAVE THOUGHTS OF HURTING YOURSELF OR SOMEONE ELSE? NO . ARE YOU ABUSED, NEGLECTED, OR IN AN UNSAFE ENVIRONMENT? NO . ENDOCRINOLOGY: ARE YOU DIABETIC? NO . OTHER: DO YOU NEED ANY PRESCRIPTIONS? NO . IF YES, PLEASE LIST: ____ . ANY NEW PROBLEMS WITH YOUR MEDICATIONS? NO . WHEN DID YOU LAST EAT? ____ . WHEN DID YOU LAST DRINK? ____ . WHAT DID YOU LAST DRINK? ____ . NAME OF PERSON DRIVING YOU HOME? ____ . DO YOU HAVE ANY OTHER QUESTIONS OR CONCERNS NO . VITAL SIGNS WT 167.9 LBS, HT 62 IN, BMI 30.71 INDEX, BP 141/79 MM HG, HR 90 /MIN, RR 18 /MIN, TEMP 98.6 F, OXYGEN SAT % 94%. EXAMINATION GENERAL EXAMINATION: GENERAL APPEARANCE:NO ACUTE DISTRESS, WELL NOURISHED AND HYDRATED. LUNGS:CLEAR TO AUSCULTATION BILATERALLY, NO WHEEZES, RHONCHI, RALES. HEART:NO MURMURS, REGULAR RATE AND RHYTHM. BACK: BANDS OF TISSUE ALONG THE THORACIC SPINE.TENDERNESS TO PALPATION SLR NEG BILATERAL. ASSESSMENTS SPONDYLOSIS OF THORACIC REGION WITHOUT MYELOPATHY OR RADICULOPATHY - M47.814 (PRIMARY) SPONDYLOSIS OF LUMBAR REGION WITHOUT MYELOPATHY OR RADICULOPATHY - M47.816 TREATMENT SPONDYLOSIS OF THORACIC REGION WITHOUT MYELOPATHY OR RADICULOPATHY CLINICAL NOTES: LEFT SIDED THORACIC TPI. ISTOP REGISTRY REVIEWED AND DEMONSTRATES COMPLLIANCE. (REF # [id number] ) BRINGS IN MEDICATIONS WHICH IS APPROPRIATE FOR WHAT WAS DISPENSED. RECENT URINE TOXICOLOGY REVIEWED. NO UNAUTHORIZED MEDICATIONS. PROCEDURE CODES FA211 ESTABILISHED PATIENT [facility] CHARGE DISPOSITION & COMMUNICATION FOLLOW UP POST PROCEDURE (REASON: LEFT SIDED THORACIC TPI) ELECTRONICALLY SIGNED BY KERI OLMOS ON 11/23/2018 AT 04:20 PM EDT DISCLAIMER : THIS IS A VISIT SUMMARY EXTRACTED FROM THE [employer] CHART. IT IS NOT A COPY OF THE [employer] PROGRESS NOTE. QING
== END ==
LOC: M PAIN 10:00
PROVIDERS: ATTEND Nurse Practitioner Family
DX: M47.814 Spondylosis without myelopathy or radiculopathy, thoracic region (principal); M47.816 Spondylosis without myelopathy or radiculopathy, lumbar region; E03.9 Hypothyroidism, unspecified; E78.00 Pure hypercholesterolemia, unspecified; F32.9 Major depressive disorder, single episode, unspecified; K21.9 Gastro-esophageal reflux disease without esophagitis; F41.9 Anxiety disorder, unspecified; M19.90 Unspecified osteoarthritis, unspecified site; Z79.899 Other long term (current) drug therapy; Z88.1 Allergy status to other antibiotic agents; Z88.8 Allergy status to other drugs, medicaments and biological substances

== ENCOUNTER → 2018-12-12 | Outpatient (CLI) | payer MEDICARE, OTHER ==
[~2018-12-12] MED LIST changes: +BUPIVACAINE HCL 0.25% 10 ML VIAL As Ordered ONE; +BUPIVACAINE HCL 0.25% 30 ML VIAL As Ordered ONE; +TRIAMCINOLONE ACETONIDE SUSP 40 MG/ML VIAL (J3301) As Ordered ONE; +diazePAM 5 MG TAB As Ordered ONE
--- NOTE | 2018-12-25 00:28 | ECWPNPC ---
PATIENT NAME: SANTOSH ARNDT : 1945 GENDER: FEMALE VISIT DATE: 12/12/2018 DISCHARGE DATE: 12/12/18927 VISIT LOCKED DATE TIME: PHYSICIAN: SUSANNA FRANCO MD RESOURCE: SUSANNA FRANCO MD REASON FOR APPOINTMENT 1. TPI HISTORY OF PRESENT ILLNESS HISTORY OF PRESENT ILLNESS: PAIN THE PATIENT DESCRIBES THE PAIN... FALL RISK SCREENING: SCREENING :NO FALLS REPORTED IN THE LAST YEAR CURRENT MEDICATIONS TAKING LEXAPRO 10 MG TABLET 1 TABLET ORALLY ONCE A DAY, NOTES: 12/12 7AM TAKING LEVOTHYROXINE SODIUM 25 MCG TABLET 1 TABLET ON AN EMPTY STOMACH IN THE MORNING ORALLY ONCE A DAY, NOTES: 12/12 7AM TAKING OMEPRAZOLE 40 MG CAPSULE DELAYED RELEASE 1 CAPSULE ORALLY ONCE A DAY, NOTES: 12/12 7AM TAKING ASA 2 81 MG TABS ORAL , NOTES: 12/11 5PM TAKING ZYRTEC ALLERGY 10 MG TABLET 1 TABLET NEEDED ORALLY ONCE A DAY, NOTES: 2 WEEKS TAKING FLONASE ALLERGY RELIEF 50 MCG/ACT SUSPENSION 1 SPRAY IN EACH NOSTRIL NASALLY ONCE A DAY, NOTES: 12/11 7PM TAKING ADVAIR DISKUS 250-50 MCG/DOSE AEROSOL POWDER BREATH ACTIVATED 1 PUFF INHALATION TWICE A DAY, NOTES: 12/11 7PM TAKING TRAMADOL HCL 50 MG TABLET 1 TABLET NEEDED ORALLY EVERY 6 HRS, NOTES: 2 DAYS AGO TAKING TENS THERAPY PAIN RELIEF - DEVICE TAKING ROSUVASTATIN CALCIUM 5 MG TABLET 1 TABLET ORALLY ONCE A DAY, NOTES: 12/11 7PM TAKING CYCLOBENZAPRINE HCL 5 MG TABLET 1 TABLET NEEDED ORALLY THREE TIMES A DAY, NOTES: 2 DAYS AGO NOT-TAKING GABAPENTIN 100 MG CAPSULE 1 CAPSULE ORALLY TWICE A DAY NOT-TAKING SIMVASTATIN 20 MG TABLET 1 TABLET IN THE EVENING ORALLY ONCE A DAY MEDICATION LIST REVIEWED AND RECONCILED WITH THE PATIENT PAST MEDICAL HISTORY CHRONIC BACK PAIN DDD HYPOTHYROIDISM ALLERGIES ELEVATED CHOLESTEROL DEPRESSION GERD OSTEOARTHRITIS ANXIETY ALLERGIES CLARITHROMYCIN: ANAPHYLAXIS - ALLERGY SPORANOX: HIVES - ALLERGY SURGICAL HISTORY HYSTERECTOMY GALLBLADDER REMOVAL BILATERAL TORN MENISCUS FUSION OF CERVIAL NECK SINUS SURGERY X3 FAMILY HISTORY FATHER: MOTHER: DAUGHTER(S): , DIAGNOSED WITH CANCER 1DAUGHTER(S) . DAUGHTER PASSED FROM CANCER OF THE BILE DUCTS 2 YRS AGO. PATIENT HAS KIDNEY STONES AND PATIENT IS ADOPTED. SOCIAL HISTORY GENERAL: TOBACCO USE ARE YOU A:NONSMOKER EDUCATION LEVEL OF EDUCATION:FINISHED COLLEGE DIET: REGULAR. LANGUAGE LANGUAGES SPOKEN:MONGOLIAN RECREATIONAL DRUG USE DRUG USE?NO LEARNING BARRIERS / SPECIAL NEEDS BARRIERS TO LEARNING?NO HEARING IMPAIRED?YES :HEARING AIDES VISION IMPAIRED?NO COGNITIVELY IMPAIRED?NO READINESS TO LEARN?YES LEARNING PREFERENCES?YES :HANDOUTS, DEMONSTRATION/VERBAL INSTRUCTION LEARNING CAPABILITIES PRESENT?YES EMOTIONAL BARRIERS?NO SPECIAL DEVICES?NO TOOL COORDINATOR NEEDED?NO PAIN CLINIC PFS, CLERGY, PUBLIC HEALTH REFERRALS WAS THE PROVIDER NOTIFIED OF ANY PERTINENT INFO?YES HAS THE PATIENT BEEN EDUCATED REGARDING HIS/HER PLAN OF CARE?YES HAS THE PATIENT BEEN EDUCATED REGARDING PAIN, THE RISK FOR PAIN, THE IMPORTANCE OF EFFECTIVE PAIN MANAGEMENT, AND THE PAIN ASSESSMENT PROCESS?YES LATEX QUESTIONNAIRE LATEX ALLERGY : HAVE YOU EVER DEVELOPED ANY TYPE OF REACTION AFTER HANDLING LATEX PRODUCTS SUCH RUBBER GLOVES, CONDOMS, DIAPHRAGMS, BALLOONS, SOCKS, OR UNDERWEAR?NO LATEX ALLERGY : HAVE YOU EVER DEVELOPED ANY TYPE OF REACTION DURING OR AFTER DENTAL APPOINTMENT, VAGINAL/RECTAL EXAMINATION, SURGICAL PROCEDURE, OR ANY OTHER EXPOSURE?NO LATEX RISK : HAVE YOU EVER HAD ANY DIFFICULTY BREATHING OR HIVES AFTER EATING OR HANDLING ANY FRUITS, OR VEGETABLES; SUCH KIWI, BANANAS, STONE FRUITS, OR CHESTNUTSNO LATEX RISK : DO YOU HAVE A PREVIOUS PERSONAL HISTORY OF MORE THAN NINE SURGERIES, SPINA BIFIDA, OR REPEATED CATHERTIZATIONS? NO LATEX RISK : ARE YOU FREQUENTLY EXPOSED TO LATEX PRODUCTS IN YOUR OCCUPATION?NO DATE ASKED : 12/12/2018 CAFFEINE CAFFEINE USE?YES HOW OFTEN AND HOW MUCH? COFFEE ADVANCE DIRECTIVE ADVANCE DIRECTIVE DISCUSSED WITH PATIENT:YES HCP - PATEL QUEEN (STEP DAUGHTER) & HANNAH OH (FRIEND), DOCUMENT NOT PROVIDED. ORTHODOX [id number] MORMONISM MARITAL STATUS: . ALCOHOL SCREENING DID YOU HAVE A DRINK CONTAINING ALCOHOL IN THE PAST YEAR?YES HOW OFTEN DID YOU HAVE A DRINK CONTAINING ALCOHOL IN THE PAST YEAR?MONTHLY OR LESS (1 POINT) HOW MANY DRINKS DID YOU HAVE ON A TYPICAL DAY WHEN YOU WERE DRINKING IN THE PAST YEAR?1 OR 2 (0 POINTS) HOW OFTEN DID YOU HAVE SIX OR MORE DRINKS ON ONE OCCASION IN THE PAST YEAR?NEVER (0 POINTS) POINTS1 INTERPRETATIONNEGATIVE OCCUPATION: RETIRED. REVIEWED WITH PATIENT 10/13/18 5701 JSREVIEWED WITH PATIENT 11/01/18 1009 JS. HOSPITALIZATION/MAJOR DIAGNOSTIC PROCEDURE SURGERY RELATED CERVICAL FRACTURE REVIEW OF SYSTEMS REVIEWED BY: PROVIDER: . CONSTITUTIONAL: ANY CHANGE IN YOUR MEDICAL CONDITION? NO . CHILLS NO . FEVER NO . INFECTION: DO YOU HAVE NEW INFECTIONS? YES, SINUS, OVER TWO WEEKS AGO . DO YOU HAVE HISTORY OF MRSA? NO . MUSCULOSKELETAL: ANY NEW PATTERNS OF PAIN OR NUMBNESS? NO . GASTROENTEROLOGY: ANY NEW CHANGE IN BOWEL CONTROL? NO . GENITOURINARY: ANY NEW CHANGE IN BLADDER CONTROL? NO . IS THERE A CHANCE YOU COULD BE ? NO . HEMATOLOGY/LYMPH: DO YOU TAKE ANY BLOOD THINNERS? (FOR EXAMPLE- COUMADIN, PLAVIX, AGGRENOX, PLATEL, PRADAXA, OR XARELTO) NO . WHEN WAS YOUR LAST DOSE? DATE: TIME: . NEUROLOGY: HAVE YOU FALLEN IN THE PAST 12 MONTHS? NO . ANY NEW EXTREMITY NUMBNESS OR WEAKNESS? NO . CARDIOLOGY: DO YOU HAVE A PACEMAKER OR DEFIBRILLATOR? NO . RESPIRATORY: HAVE YOU BEEN SICK IN THE PAST WEEK? YES, PT STATES THAT SHE WAS SICK AND COMPLETED ANTIBIOTIC ROTATION OVER 2 WEEKS AGO . FEVER NO . FLU LIKE SYMPTOMS? NO . COUGH NO . INTEGUMENTARY: DO YOU HAVE ANY RASHES OR OPEN SORES? NO . ALLERGIC/IMMUNO: ARE YOU ALLERGIC TO IV DYE? NO . ANY NEW ALLERGIES? NO . PSYCHIATRIC: DO YOU HAVE THOUGHTS OF HURTING YOURSELF OR SOMEONE ELSE? NO . ARE YOU ABUSED, NEGLECTED, OR IN AN UNSAFE ENVIRONMENT? NO . ENDOCRINOLOGY: ARE YOU DIABETIC? NO . OTHER: DO YOU NEED ANY PRESCRIPTIONS? NO . IF YES, PLEASE LIST: ____ . ANY NEW PROBLEMS WITH YOUR MEDICATIONS? NO . WHEN DID YOU LAST EAT? 12/11 7PM . WHEN DID YOU LAST DRINK? 12/12 7:30A . WHAT DID YOU LAST DRINK? WATER . NAME OF PERSON DRIVING YOU HOME? SOLOMON . DO YOU HAVE ANY OTHER QUESTIONS OR CONCERNS PT STATES THAT SHE WAS TAKING ANTIBIOTICS AND COMPLETED MEDICATION 2 WEEKS AGO . VITAL SIGNS WT 169.4 LBS, HT 62 IN, BMI 30.98 INDEX, BP 134/70 MM HG, HR 71 /MIN, RR 18 /MIN, TEMP 97.5 F, OXYGEN SAT % 96%, SAFE IN ENV? (Y/N) Y, NA INITIALS NC 08:53, REVIEWED BY: RHIANNA. ASSESSMENTS MYALGIA, OTHER SITE - M79.18 (PRIMARY) PROCEDURES PN TRIGGER POINT INJECTION WITH STEROIDS PRE PROCEDURE DIAGNOSIS 1. MYALGIA 2. PAIN AT LEFT THORACIC AREA AND BILATERAL LUMBAR AREA. POST PROCEDURE DIAGNOSIS 1. MYALGIA 2. PAIN AT LEFT THORACIC AREA AND BILATERAL LUMBAR AREA. PROCEDURE TRIGGER POINT INJECTION AT LEFT THORACIC AREA AND BILATERAL LUMBAR AREA. SURGEON DR. SUSANNA FRANCO PROFESSOR OF SURGERY NONE ANESTHESIA LOCAL PRE PROCEDURE NOTE THE PATIENT HAS A HISTORY OF CHRONIC PAIN AT THE LEFT THORACIC AREA AND RIGHT AND LEFT LUMBAR AREA. I EVALUATED THE PATIENT AND REVIEWED THE CHART. THERE IS EVIDENCE OF BANDS OF TISSUE WITH RESTRICTION OF MOVEMENT AND PRESENCE OF TRIGGER POINT AT THE AFFECTED AREA. I WENT OVER THE RISKS, ALTERNATIVES, AND BENEFITS ASSOCIATED WITH THIS PROCEDURE. THE PATIENT WOULD LIKE TO PROCEED AND GIVE CONSENT TO PERFORMED THE PROCEDURE. THE PATIENT DENIES UNEXPLAINABLE WEIGHT LOSS, FEVER, CHILLS, OR NEW CHANGES IN URINARY OR BOWEL CONTROL DESCRIPTION OF PROCEDURE THE PATIENT WAS BROUGHT TO THE PROCEDURE ROOM AND PLACED IN THE SITTING POSITION. THE AREA WAS CLEANED WITH ALCOHOL. THE PROCEDURE WAS DONE USING ASEPTIC STERILE TECHNIQUE. I CHECKED LATERALITY AND THE LEVEL WHERE THE PROCEDURE WAS GOING TO BE PERFORMED WITH THE PATIENT AND THE SUPPORTING STAFF AT THE MOMENT OF THE TIME OUT IN THE PROCEDURE ROOM. USING A 25-GAUGE NEEDLE, TRIGGER POINTS WERE INJECTED AT THE LEFT THORACIC AREA AND RIGHT AND LEFT LUMBAR AREA WITH A TOTAL OF 40 ML OF BUPIVACAINE 0.25% AND KENALOG 40 MG. THERE WAS NO EVIDENCE OF BLOOD, PARESTHESIA OR CEREBROSPINAL FLUID DURING THE PROCEDURE. THE PATIENT WAS SENT TO THE RECOVERY ROOM. THE PATIENT WAS MOVING THE EXTREMITIES AND DOING WELL. THERE WAS NO COMPLICATION DURING THE PROCEDURE POST PROCEDURE NOTE THE PATIENT WILL BE SEEN IN A FOLLOW UP IN THE NEXT FEW WEEKS. INSTRUCTIONS WERE GIVEN, QUESTIONS WERE ANSWERED, AND THE PATIENT EXPRESSED UNDERSTANDING AND AGREES WITH THE PLAN. I, MEREDITH RM, DOCUMENTED THE ABOVE INFORMATION ACTING A SCRIBE FOR DR. FRANCO. I HAVE REVIEWED THE ABOVE DOCUMENT, WRITTEN BY MEREDITH MURRAY AND I VERIFY THAT IT IS ACCURATE. PROCEDURE CODES 36890 INJECT TRIGGER POINTS 3/> DISPOSITION & COMMUNICATION FOLLOW UP 3 WEEKS ELECTRONICALLY SIGNED BY SUSANNA FRANCO MD, MD ON 12/24/2018 AT 04:18 PM EDT DISCLAIMER : THIS IS A VISIT SUMMARY EXTRACTED FROM THE [employer] CHART. IT IS NOT A COPY OF THE [employer] PROGRESS NOTE. QING
== END ==
LOC: M PAIN 08:30
PROVIDERS: ATTEND Anesthesiology
DX: M79.18 Myalgia, other site (principal); M54.6 Pain in thoracic spine; M54.5 Low back pain; E03.9 Hypothyroidism, unspecified; E78.00 Pure hypercholesterolemia, unspecified; F32.9 Major depressive disorder, single episode, unspecified; K21.9 Gastro-esophageal reflux disease without esophagitis; F41.9 Anxiety disorder, unspecified; Z79.82 Long term (current) use of aspirin; Z79.899 Other long term (current) drug therapy; Z88.1 Allergy status to other antibiotic agents; Z88.8 Allergy status to other drugs, medicaments and biological substances
CPT/HCPCS: 20553; J3301

== ENCOUNTER → 2019-03-02 | Outpatient (CLI) | payer MEDICARE, OTHER ==
[~2019-03-02] MED LIST changes: -BUPIVACAINE HCL 0.25% 10 ML VIAL As Ordered ONE; -BUPIVACAINE HCL 0.25% 30 ML VIAL As Ordered ONE; -TRIAMCINOLONE ACETONIDE SUSP 40 MG/ML VIAL (J3301) As Ordered ONE; -diazePAM 5 MG TAB As Ordered ONE
--- NOTE | 2019-03-06 02:25 | ECWPNPC ---
PATIENT NAME: SANTOSH ARNDT : 1945 GENDER: FEMALE VISIT DATE: 03/02/2019 DISCHARGE DATE: 03/02/19 1044 VISIT LOCKED DATE TIME: PHYSICIAN: BAN GREENFIELD RESOURCE: BAN GREENFIELD REASON FOR APPOINTMENT 1. POST PROCEDURE HISTORY OF PRESENT ILLNESS HISTORY OF PRESENT ILLNESS: PAIN THE PATIENT DESCRIBES THE PAIN... 73 YEAR OLD FEMALE IN FOR POST PROCEDURAL FOLLOW UP. SHE RECEIVED A TPI IN NOVEMBER AND STATES SHE HAD GREATER THAN 80% RELIEF X 7 DAYS. SHE CURRENTLY RATES HER PAIN AT A 7/10 AND WOULD LIKE TO DISCUSS ANOTHER TPI. FALL RISK SCREENING: SCREENING :NO FALLS REPORTED IN THE LAST YEAR CURRENT MEDICATIONS TAKING LEXAPRO 10 MG TABLET 1 TABLET ORALLY ONCE A DAY TAKING LEVOTHYROXINE SODIUM 25 MCG TABLET 1 TABLET ON AN EMPTY STOMACH IN THE MORNING ORALLY ONCE A DAY TAKING OMEPRAZOLE 40 MG CAPSULE DELAYED RELEASE 1 CAPSULE ORALLY ONCE A DAY TAKING ASA 2 81 MG TABS ORAL TAKING ZYRTEC ALLERGY 10 MG TABLET 1 TABLET NEEDED ORALLY ONCE A DAY TAKING FLONASE ALLERGY RELIEF 50 MCG/ACT SUSPENSION 1 SPRAY IN EACH NOSTRIL NASALLY ONCE A DAY TAKING ADVAIR DISKUS 250-50 MCG/DOSE AEROSOL POWDER BREATH ACTIVATED 1 PUFF INHALATION TWICE A DAY TAKING TRAMADOL HCL 50 MG TABLET 1 TABLET NEEDED ORALLY EVERY 6 HRS TAKING TENS THERAPY PAIN RELIEF - DEVICE TAKING ROSUVASTATIN CALCIUM 5 MG TABLET 1 TABLET ORALLY ONCE A DAY TAKING CYCLOBENZAPRINE HCL 5 MG TABLET 1 TABLET NEEDED ORALLY THREE TIMES A DAY NOT-TAKING GABAPENTIN 100 MG CAPSULE 1 CAPSULE ORALLY TWICE A DAY NOT-TAKING SIMVASTATIN 20 MG TABLET 1 TABLET IN THE EVENING ORALLY ONCE A DAY MEDICATION LIST REVIEWED AND RECONCILED WITH THE PATIENT PAST MEDICAL HISTORY CHRONIC BACK PAIN DDD HYPOTHYROIDISM ALLERGIES ELEVATED CHOLESTEROL DEPRESSION GERD OSTEOARTHRITIS ANXIETY ALLERGIES CLARITHROMYCIN: ANAPHYLAXIS - ALLERGY SPORANOX: HIVES - ALLERGY SURGICAL HISTORY HYSTERECTOMY GALLBLADDER REMOVAL BILATERAL TORN MENISCUS FUSION OF CERVIAL NECK SINUS SURGERY X3 FAMILY HISTORY FATHER: MOTHER: DAUGHTER(S): , DIAGNOSED WITH CANCER 1DAUGHTER(S) . DAUGHTER PASSED FROM CANCER OF THE BILE DUCTS 2 YRS AGO. PATIENT HAS KIDNEY STONES AND PATIENT IS ADOPTED. SOCIAL HISTORY GENERAL: TOBACCO USE ARE YOU A:NONSMOKER EDUCATION LEVEL OF EDUCATION:FINISHED COLLEGE DIET: REGULAR. LANGUAGE LANGUAGES SPOKEN:MACEDONIAN RECREATIONAL DRUG USE DRUG USE?NO LEARNING BARRIERS / SPECIAL NEEDS BARRIERS TO LEARNING?NO HEARING IMPAIRED?YES VISION IMPAIRED?NO COGNITIVELY IMPAIRED?NO :HEARING AIDES READINESS TO LEARN?YES LEARNING PREFERENCES?YES :HANDOUTS, DEMONSTRATION/VERBAL INSTRUCTION LEARNING CAPABILITIES PRESENT?YES EMOTIONAL BARRIERS?NO SPECIAL DEVICES?NO PERSONNEL ARBITRATOR NEEDED?NO PAIN CLINIC PFS, CLERGY, PUBLIC HEALTH REFERRALS WAS THE PROVIDER NOTIFIED OF ANY PERTINENT INFO?YES HAS THE PATIENT BEEN EDUCATED REGARDING HIS/HER PLAN OF CARE?YES HAS THE PATIENT BEEN EDUCATED REGARDING PAIN, THE RISK FOR PAIN, THE IMPORTANCE OF EFFECTIVE PAIN MANAGEMENT, AND THE PAIN ASSESSMENT PROCESS?YES LATEX QUESTIONNAIRE LATEX ALLERGY : HAVE YOU EVER DEVELOPED ANY TYPE OF REACTION AFTER HANDLING LATEX PRODUCTS SUCH RUBBER GLOVES, CONDOMS, DIAPHRAGMS, BALLOONS, SOCKS, OR UNDERWEAR?NO LATEX ALLERGY : HAVE YOU EVER DEVELOPED ANY TYPE OF REACTION DURING OR AFTER DENTAL APPOINTMENT, VAGINAL/RECTAL EXAMINATION, SURGICAL PROCEDURE, OR ANY OTHER EXPOSURE?NO LATEX RISK : HAVE YOU EVER HAD ANY DIFFICULTY BREATHING OR HIVES AFTER EATING OR HANDLING ANY FRUITS, OR VEGETABLES; SUCH KIWI, BANANAS, STONE FRUITS, OR CHESTNUTSNO LATEX RISK : DO YOU HAVE A PREVIOUS PERSONAL HISTORY OF MORE THAN NINE SURGERIES, SPINA BIFIDA, OR REPEATED CATHERIZATIONS? NO LATEX RISK : ARE YOU FREQUENTLY EXPOSED TO LATEX PRODUCTS IN YOUR OCCUPATION?NO DATE ASKED : 12/12/2018 CAFFEINE CAFFEINE USE?YES HOW OFTEN AND HOW MUCH? COFFEE ADVANCE DIRECTIVE ADVANCE DIRECTIVE DISCUSSED WITH PATIENT:YES HCP - PATEL QUEEN (STEP DAUGHTER) & HANNAH OH (FRIEND), DOCUMENT NOT PROVIDED. BAPTIST [id number] HOAHAOISM MARITAL STATUS: . ALCOHOL SCREENING DID YOU HAVE A DRINK CONTAINING ALCOHOL IN THE PAST YEAR?YES HOW OFTEN DID YOU HAVE SIX OR MORE DRINKS ON ONE OCCASION IN THE PAST YEAR?NEVER (0 POINTS) HOW MANY DRINKS DID YOU HAVE ON A TYPICAL DAY WHEN YOU WERE DRINKING IN THE PAST YEAR?1 OR 2 (0 POINTS) HOW OFTEN DID YOU HAVE A DRINK CONTAINING ALCOHOL IN THE PAST YEAR?MONTHLY OR LESS (1 POINT) POINTS1 INTERPRETATIONNEGATIVE OCCUPATION: RETIRED. REVIEWED WITH PATIENT 10/13/18 4029 JSREVIEWED WITH PATIENT 11/01/18 1009 JSREVIEWED WITH PATIENT 03/02/19 1025 JS. HOSPITALIZATION/MAJOR DIAGNOSTIC PROCEDURE SURGERY RELATED CERVICAL FRACTURE REVIEW OF SYSTEMS REVIEWED BY: PROVIDER: KENDALL LARA . CONSTITUTIONAL: ANY CHANGE IN YOUR MEDICAL CONDITION? NO . CHILLS NO . FEVER NO . INFECTION: DO YOU HAVE NEW INFECTIONS? NO . DO YOU HAVE HISTORY OF MRSA? NO . MUSCULOSKELETAL: ANY NEW PATTERNS OF PAIN OR NUMBNESS? NO . GASTROENTEROLOGY: ANY NEW CHANGE IN BOWEL CONTROL? NO . GENITOURINARY: ANY NEW CHANGE IN BLADDER CONTROL? NO . IS THERE A CHANCE YOU COULD BE ? NO . HEMATOLOGY/LYMPH: DO YOU TAKE ANY BLOOD THINNERS? (FOR EXAMPLE- COUMADIN, PLAVIX, AGGRENOX, PLATEL, PRADAXA, OR XARELTO) NO . WHEN WAS YOUR LAST DOSE? DATE: TIME: . NEUROLOGY: HAVE YOU FALLEN IN THE PAST 12 MONTHS? NO . ANY NEW EXTREMITY NUMBNESS OR WEAKNESS? NO . CARDIOLOGY: DO YOU HAVE A PACEMAKER OR DEFIBRILLATOR? NO . RESPIRATORY: HAVE YOU BEEN SICK IN THE PAST WEEK? NO . FEVER NO . FLU LIKE SYMPTOMS? NO . COUGH NO . INTEGUMENTARY: DO YOU HAVE ANY RASHES OR OPEN SORES? NO . ALLERGIC/IMMUNO: ARE YOU ALLERGIC TO IV DYE? NO . ANY NEW ALLERGIES? NO . PSYCHIATRIC: DO YOU HAVE THOUGHTS OF HURTING YOURSELF OR SOMEONE ELSE? NO . ARE YOU ABUSED, NEGLECTED, OR IN AN UNSAFE ENVIRONMENT? NO . ENDOCRINOLOGY: ARE YOU DIABETIC? NO . OTHER: DO YOU NEED ANY PRESCRIPTIONS? NO . IF YES, PLEASE LIST: ____ . ANY NEW PROBLEMS WITH YOUR MEDICATIONS? NO . WHEN DID YOU LAST EAT? ____ . WHEN DID YOU LAST DRINK? ____ . WHAT DID YOU LAST DRINK? ____ . NAME OF PERSON DRIVING YOU HOME? ____ . DO YOU HAVE ANY OTHER QUESTIONS OR CONCERNS YES, PATIENT WOULD LIKE A TRIGGER POINT INJECTIONS AGAIN SOON POSSIBLE! . VITAL SIGNS WT 166.8 LBS, HT 62 IN, BMI 30.50 INDEX, BP 135/73 MM HG, HR 100 /MIN, RR 18 /MIN, TEMP 96.7 F, OXYGEN SAT % 93%, SAFE IN ENV? (Y/N) YES, NA INITIALS AW 1020, REVIEWED BY: BARBARA. EXAMINATION GENERAL EXAMINATION: GENERALNO ACUTE DISTRESS, WELL NOURISHED AND HYDRATED. PSYCHAPPROPRIATE MOOD AND AFFECT . LUNGS:CLEAR TO AUSCULTATION BILATERALLY, NO WHEEZES, RHONCHI, RALES. HEART:NO MURMURS, REGULAR RATE AND RHYTHM. BACK:POINT TENDER PARASPINOUS LEFT SIDE. SKIN SHOWS NO ERYTHEMA, ECCHYMOSIS, INCREASED WARMTH, OR SKIN ERUPTIONS.. EXTREMITIES:EQUAL STRENGTH IN THE LOWER EXTREMITIES. ASSESSMENTS MYALGIA, OTHER SITE - M79.18 (PRIMARY) TREATMENT MYALGIA, OTHER SITE NOTES: TPI LEFT THORACIC. CLINICAL NOTES: 73 YEAR OLD FEMALE IN FOR POST PROCEDURAL FOLLOW UP. SHE ADMITS TO > 80% RELIEF X 7 DAYS S/P PROCEDURE. GIVEN PRESENTING SYMPTOMS AND RESULTS OF PHYSICAL EXAMINATION RECOMMENDED REPEAT TPI WITH POST PROCEDURAL FOLLOW UP. PATIENT HAS EXPRESSED UNDERSTANDING OF AND WAS IN AGREEMENT WITH TX PLAN. GIVEN TIME TO ASK QUESTIONS AND EXPRESS CONCERNS. . PREVENTIVE MEDICINE PAIN CLINIC TEACHING: PROCEDURE TEACHING TRIGGER POINT INJECTIONS PROCEDURE REVIEWED WITH PT, PRE PROCEDURE INSTRUCTIONS PRINTED AND REVIEWED. PT VERBALIZES UNDERSTANDING 03/02/19 LAS. PROCEDURE CODES FA211 ESTABILISHED PATIENT [facility] CHARGE DISPOSITION & COMMUNICATION FOLLOW UP POST PROCEDURE (REASON: LEFT THORACIC TPI) ELECTRONICALLY SIGNED BY KERI YEUNG ON 03/05/2019 AT 09:06 AM EDT DISCLAIMER : THIS IS A VISIT SUMMARY EXTRACTED FROM THE [employer] CHART. IT IS NOT A COPY OF THE A [employer] PROGRESS NOTE. QING
== END ==
LOC: M PAIN 10:45
PROVIDERS: ATTEND Family Medicine
DX: M79.18 Myalgia, other site (principal); M54.9 Dorsalgia, unspecified; E03.9 Hypothyroidism, unspecified; E78.00 Pure hypercholesterolemia, unspecified; F32.9 Major depressive disorder, single episode, unspecified; K21.9 Gastro-esophageal reflux disease without esophagitis; M19.90 Unspecified osteoarthritis, unspecified site; F41.9 Anxiety disorder, unspecified; Z79.891 Long term (current) use of opiate analgesic; Z79.899 Other long term (current) drug therapy; Z90.710 Acquired absence of both cervix and uterus; Z98.1 Arthrodesis status; Z88.1 Allergy status to other antibiotic agents; Z88.8 Allergy status to other drugs, medicaments and biological substances

== ENCOUNTER → 2019-03-06 | Outpatient (CLI) | payer MEDICARE, OTHER ==
[~2019-03-06] MED LIST changes: +BUPIVACAINE HCL 0.25% 10 ML VIAL As Ordered ONE; +BUPIVACAINE HCL 0.25% 30 ML VIAL As Ordered ONE; +TRIAMCINOLONE ACETONIDE SUSP 40 MG/ML VIAL (J3301) As Ordered ONE
--- NOTE | 2019-03-16 23:38 | ECWPNPC ---
PATIENT NAME: SANTOSH ARNDT : 1945 GENDER: FEMALE VISIT DATE: 03/06/2019 DISCHARGE DATE: 03/06/19926 VISIT LOCKED DATE TIME: PHYSICIAN: SUSANNA FRANCO MD RESOURCE: SUSANNA FRANCO MD REASON FOR APPOINTMENT 1. LEFT THORACIC TPI HISTORY OF PRESENT ILLNESS HISTORY OF PRESENT ILLNESS: PAIN THE PATIENT DESCRIBES THE PAIN... FALL RISK SCREENING: SCREENING :NO FALLS REPORTED IN THE LAST YEAR CURRENT MEDICATIONS TAKING LEXAPRO 10 MG TABLET 1 TABLET ORALLY ONCE A DAY, NOTES: 03/05 PM TAKING LEVOTHYROXINE SODIUM 25 MCG TABLET 1 TABLET ON AN EMPTY STOMACH IN THE MORNING ORALLY ONCE A DAY, NOTES: 03/05 AM TAKING OMEPRAZOLE 40 MG CAPSULE DELAYED RELEASE 1 CAPSULE ORALLY ONCE A DAY, NOTES: 03/05 AM TAKING ASA 2 81 MG TABS ORAL , NOTES: 03/05 PM TAKING ZYRTEC ALLERGY 10 MG TABLET 1 TABLET NEEDED ORALLY ONCE A DAY, NOTES: 1 MONTH TAKING FLONASE ALLERGY RELIEF 50 MCG/ACT SUSPENSION 1 SPRAY IN EACH NOSTRIL NASALLY ONCE A DAY, NOTES: 03/05 PM TAKING ADVAIR DISKUS 250-50 MCG/DOSE AEROSOL POWDER BREATH ACTIVATED 1 PUFF INHALATION TWICE A DAY, NOTES: 03/05 PM TAKING TRAMADOL HCL 50 MG TABLET 1 TABLET NEEDED ORALLY EVERY 6 HRS, NOTES: 03/05 PM TAKING TENS THERAPY PAIN RELIEF - DEVICE , NOTES: 03/05 PM TAKING ROSUVASTATIN CALCIUM 5 MG TABLET 1 TABLET ORALLY ONCE A DAY, NOTES: 03/05 PM TAKING CYCLOBENZAPRINE HCL 5 MG TABLET 1 TABLET NEEDED ORALLY THREE TIMES A DAY, NOTES: 03/05 PM NOT-TAKING GABAPENTIN 100 MG CAPSULE 1 CAPSULE ORALLY TWICE A DAY NOT-TAKING SIMVASTATIN 20 MG TABLET 1 TABLET IN THE EVENING ORALLY ONCE A DAY MEDICATION LIST REVIEWED AND RECONCILED WITH THE PATIENT PAST MEDICAL HISTORY CHRONIC BACK PAIN DDD HYPOTHYROIDISM ALLERGIES ELEVATED CHOLESTEROL DEPRESSION GERD OSTEOARTHRITIS ANXIETY ALLERGIES CLARITHROMYCIN: ANAPHYLAXIS - ALLERGY SPORANOX: HIVES - ALLERGY SURGICAL HISTORY HYSTERECTOMY GALLBLADDER REMOVAL BILATERAL TORN MENISCUS FUSION OF CERVIAL NECK SINUS SURGERY X3 FAMILY HISTORY FATHER: MOTHER: DAUGHTER(S): , DIAGNOSED WITH CANCER 1DAUGHTER(S) . DAUGHTER PASSED FROM CANCER OF THE BILE DUCTS 2 YRS AGO. PATIENT HAS KIDNEY STONES AND PATIENT IS ADOPTED. SOCIAL HISTORY GENERAL: TOBACCO USE ARE YOU A:NONSMOKER EDUCATION LEVEL OF EDUCATION:FINISHED COLLEGE DIET: REGULAR. LANGUAGE LANGUAGES SPOKEN:MAURITIAN RECREATIONAL DRUG USE DRUG USE?NO LEARNING BARRIERS / SPECIAL NEEDS BARRIERS TO LEARNING?NO HEARING IMPAIRED?YES VISION IMPAIRED?NO COGNITIVELY IMPAIRED?NO :HEARING AIDES READINESS TO LEARN?YES LEARNING PREFERENCES?YES :HANDOUTS, DEMONSTRATION/VERBAL INSTRUCTION LEARNING CAPABILITIES PRESENT?YES EMOTIONAL BARRIERS?NO SPECIAL DEVICES?NO DIRECTOR OF AUDIOLOGY NEEDED?NO PAIN CLINIC PFS, CLERGY, PUBLIC HEALTH REFERRALS WAS THE PROVIDER NOTIFIED OF ANY PERTINENT INFO?YES HAS THE PATIENT BEEN EDUCATED REGARDING HIS/HER PLAN OF CARE?YES HAS THE PATIENT BEEN EDUCATED REGARDING PAIN, THE RISK FOR PAIN, THE IMPORTANCE OF EFFECTIVE PAIN MANAGEMENT, AND THE PAIN ASSESSMENT PROCESS?YES LATEX QUESTIONNAIRE LATEX ALLERGY : HAVE YOU EVER DEVELOPED ANY TYPE OF REACTION AFTER HANDLING LATEX PRODUCTS SUCH RUBBER GLOVES, CONDOMS, DIAPHRAGMS, BALLOONS, SOCKS, OR UNDERWEAR?NO LATEX ALLERGY : HAVE YOU EVER DEVELOPED ANY TYPE OF REACTION DURING OR AFTER DENTAL APPOINTMENT, VAGINAL/RECTAL EXAMINATION, SURGICAL PROCEDURE, OR ANY OTHER EXPOSURE?NO LATEX RISK : HAVE YOU EVER HAD ANY DIFFICULTY BREATHING OR HIVES AFTER EATING OR HANDLING ANY FRUITS, OR VEGETABLES; SUCH KIWI, BANANAS, STONE FRUITS, OR CHESTNUTSNO LATEX RISK : DO YOU HAVE A PREVIOUS PERSONAL HISTORY OF MORE THAN NINE SURGERIES, SPINA BIFIDA, OR REPEATED CATHERIZATIONS? NO LATEX RISK : ARE YOU FREQUENTLY EXPOSED TO LATEX PRODUCTS IN YOUR OCCUPATION?NO DATE ASKED : 03/06/2019 CAFFEINE CAFFEINE USE?YES HOW OFTEN AND HOW MUCH? COFFEE ADVANCE DIRECTIVE ADVANCE DIRECTIVE DISCUSSED WITH PATIENT:YES HCP - PATEL QUEEN (STEP DAUGHTER) & HANNAH OH (FRIEND), DOCUMENT NOT PROVIDED. PROTESTANT [id number] VOODOO MARITAL STATUS: . ALCOHOL SCREENING DID YOU HAVE A DRINK CONTAINING ALCOHOL IN THE PAST YEAR?YES HOW OFTEN DID YOU HAVE SIX OR MORE DRINKS ON ONE OCCASION IN THE PAST YEAR?NEVER (0 POINTS) HOW MANY DRINKS DID YOU HAVE ON A TYPICAL DAY WHEN YOU WERE DRINKING IN THE PAST YEAR?1 OR 2 (0 POINTS) HOW OFTEN DID YOU HAVE A DRINK CONTAINING ALCOHOL IN THE PAST YEAR?MONTHLY OR LESS (1 POINT) POINTS1 INTERPRETATIONNEGATIVE OCCUPATION: RETIRED. REVIEWED WITH PATIENT 10/13/18 0980 JSREVIEWED WITH PATIENT 11/01/18 1009 JSREVIEWED WITH PATIENT 03/02/19 1025 JS. HOSPITALIZATION/MAJOR DIAGNOSTIC PROCEDURE SURGERY RELATED CERVICAL FRACTURE REVIEW OF SYSTEMS REVIEWED BY: PROVIDER: . CONSTITUTIONAL: ANY CHANGE IN YOUR MEDICAL CONDITION? NO . CHILLS NO . FEVER NO . INFECTION: DO YOU HAVE NEW INFECTIONS? NO . DO YOU HAVE HISTORY OF MRSA? NO . MUSCULOSKELETAL: ANY NEW PATTERNS OF PAIN OR NUMBNESS? NO . GASTROENTEROLOGY: ANY NEW CHANGE IN BOWEL CONTROL? NO . GENITOURINARY: ANY NEW CHANGE IN BLADDER CONTROL? NO . IS THERE A CHANCE YOU COULD BE ? NO . HEMATOLOGY/LYMPH: DO YOU TAKE ANY BLOOD THINNERS? (FOR EXAMPLE- COUMADIN, PLAVIX, AGGRENOX, PLATEL, PRADAXA, OR XARELTO) NO . WHEN WAS YOUR LAST DOSE? DATE: TIME: . NEUROLOGY: HAVE YOU FALLEN IN THE PAST 12 MONTHS? NO . ANY NEW EXTREMITY NUMBNESS OR WEAKNESS? NO . CARDIOLOGY: DO YOU HAVE A PACEMAKER OR DEFIBRILLATOR? NO . RESPIRATORY: HAVE YOU BEEN SICK IN THE PAST WEEK? NO . FEVER NO . FLU LIKE SYMPTOMS? NO . COUGH NO . INTEGUMENTARY: DO YOU HAVE ANY RASHES OR OPEN SORES? NO . ALLERGIC/IMMUNO: ARE YOU ALLERGIC TO IV DYE? NO . ANY NEW ALLERGIES? NO . PSYCHIATRIC: DO YOU HAVE THOUGHTS OF HURTING YOURSELF OR SOMEONE ELSE? NO . ARE YOU ABUSED, NEGLECTED, OR IN AN UNSAFE ENVIRONMENT? NO . ENDOCRINOLOGY: ARE YOU DIABETIC? NO . OTHER: DO YOU NEED ANY PRESCRIPTIONS? NO . IF YES, PLEASE LIST: ____ . ANY NEW PROBLEMS WITH YOUR MEDICATIONS? NO . WHEN DID YOU LAST EAT? 03/05 8PM . WHEN DID YOU LAST DRINK? 03/05 10PM . WHAT DID YOU LAST DRINK? WATER . NAME OF PERSON DRIVING YOU HOME? SOLOMON . DO YOU HAVE ANY OTHER QUESTIONS OR CONCERNS NO . VITAL SIGNS WT 167.8 LBS, HT 62 IN, BMI 30.69 INDEX, BP 134/84 MM HG, HR 95 /MIN, RR 16 /MIN, TEMP 97.1 F, OXYGEN SAT % 95%, SAFE IN ENV? (Y/N) Y, NA INITIALS AK 09:01, REVIEWED BY: RHIANNA. ASSESSMENTS MYALGIA, OTHER SITE - M79.18 (PRIMARY) PROCEDURES PN TRIGGER POINT INJECTION WITH STEROIDS PRE PROCEDURE DIAGNOSIS 1. MYALGIA 2. PAIN AT LEFT THORACIC AREA POST PROCEDURE DIAGNOSIS 1. MYALGIA 2. PAIN AT LEFT THORACIC AREA PROCEDURE TRIGGER POINT INJECTION AT LEFT THORACIC AREA SURGEON DR. 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 I EVALUATE THE PATIENT AND REVIEWED THE CHART. THERE IS EVIDENCE OF BANDS OF TISSUE WITH RESTRICTION OF MOVEMENT AND PRESENCE OF TRIGGER POINT AT THE AFFECTED AREA. I WENT OVER THE RISKS, ALTERNATIVES, AND BENEFITS ASSOCIATED WITH THIS PROCEDURE. THE PATIENT WOULD LIKE TO PROCEED AND GIVE CONSENT TO PERFORMED THE PROCEDURE. THE PATIENT DENIES UNEXPLAINABLE WEIGHT LOSS, FEVER, CHILLS, OR NEW CHANGES IN URINARY OR BOWEL CONTROL DESCRIPTION OF PROCEDURE THE PATIENT WAS BROUGHT TO THE PROCEDURE ROOM AND PLACED IN THE SITTING POSITION. THE AREA WAS CLEANED WITH ALCOHOL. THE PROCEDURE WAS DONE USING ASEPTIC STERILE TECHNIQUE. I CHECKED LATERALITY AND THE LEVEL WHERE THE PROCEDURE WAS GOING TO BE PERFORMED WITH THE PATIENT AND THE SUPPORTING STAFF AT THE MOMENT OF THE TIME OUT IN THE PROCEDURE ROOM. USING A 25-GAUGE NEEDLE, TRIGGER POINTS WERE INJECTED AT THE LEFT THORACIC AREA WITH A TOTAL OF 40 ML OF BUPIVACAINE 0.25% AND KENALOG 40 MG. THERE WAS NO EVIDENCE OF BLOOD, PARESTHESIA OR CEREBROSPINAL FLUID DURING THE PROCEDURE. THE PATIENT WAS SENT TO THE RECOVERY ROOM. THE PATIENT WAS MOVING THE EXTREMITIES AND DOING WELL. THERE WAS NO COMPLICATION DURING THE PROCEDURE POST PROCEDURE NOTE THE PATIENT WILL BE SEEN IN A FOLLOW UP IN THE NEXT FEW WEEKS. INSTRUCTIONS WERE GIVEN, QUESTIONS WERE ANSWERED, AND THE PATIENT EXPRESSED UNDERSTANDING AND AGREES WITH THE PLAN. I, BIN PORRAS, DOCUMENTED THE ABOVE INFORMATION ACTING A SCRIBE FOR DR. FRANCO. I HAVE REVIEWED THE ABOVE DOCUMENT, WRITTEN BY BIN MURRAY AND I VERIFY THAT IT IS ACCURATE. PROCEDURE CODES 84967 INJ TRIGGER POINT / [facility] DISPOSITION & COMMUNICATION FOLLOW UP 3 WEEKS ELECTRONICALLY SIGNED BY SUSANNA FRANCO MD, MD ON 03/16/2019 AT 01:23 PM EDT DISCLAIMER : THIS IS A VISIT SUMMARY EXTRACTED FROM THE [employer] CHART. IT IS NOT A COPY OF THE [employer] PROGRESS NOTE. QING
== END ==
LOC: M PAIN 08:45
PROVIDERS: ATTEND Anesthesiology
DX: M79.18 Myalgia, other site (principal); E03.9 Hypothyroidism, unspecified; E78.00 Pure hypercholesterolemia, unspecified; F32.9 Major depressive disorder, single episode, unspecified; K21.9 Gastro-esophageal reflux disease without esophagitis; M19.90 Unspecified osteoarthritis, unspecified site; F41.9 Anxiety disorder, unspecified; J30.9 Allergic rhinitis, unspecified; Z90.49 Acquired absence of other specified parts of digestive tract; Z90.710 Acquired absence of both cervix and uterus; Z98.1 Arthrodesis status; Z79.891 Long term (current) use of opiate analgesic; Z79.899 Other long term (current) drug therapy; Z88.1 Allergy status to other antibiotic agents; Z88.8 Allergy status to other drugs, medicaments and biological substances
CPT/HCPCS: 20552; J3301

== ENCOUNTER → 2019-03-20 | Outpatient (CLI) | payer MEDICARE, OTHER ==
[~2019-03-20] MED LIST changes: -BUPIVACAINE HCL 0.25% 10 ML VIAL As Ordered ONE; -BUPIVACAINE HCL 0.25% 30 ML VIAL As Ordered ONE; -TRIAMCINOLONE ACETONIDE SUSP 40 MG/ML VIAL (J3301) As Ordered ONE
--- NOTE | 2019-03-22 00:03 | ECWPNPC ---
PATIENT NAME: SANTOSH ARNDT : 1945 GENDER: FEMALE VISIT DATE: 03/20/2019 DISCHARGE DATE: 03/20/19 1026 VISIT LOCKED DATE TIME: PHYSICIAN: BAN GREENFIELD RESOURCE: BAN GREENFIELD REASON FOR APPOINTMENT 1. POST TPI HISTORY OF PRESENT ILLNESS HISTORY OF PRESENT ILLNESS: PAIN THE PATIENT DESCRIBES THE PAIN... 73 YEAR OLD FEMALE IN FOR POST TPI FOLLOW UP. SHE STATES THE LAST TPI WAS DONE WITHOUT STEROIDS AND SHE WOULD LIKE TO GET ANOTHER TPI WITH STEROIDS THIS LAST ONE ONLY WORKED FOR A COUPLE DAYS. SHE RATES HER PAIN AT A 5/10 CURRENTLY AND DESCRIBES IT SHARP. SHE HAS A TENS UNIT IN PLACE AND FEELS THIS IS HELPFUL. FALL RISK SCREENING: SCREENING :NO FALLS REPORTED IN THE LAST YEAR CURRENT MEDICATIONS TAKING LEXAPRO 10 MG TABLET 1 TABLET ORALLY ONCE A DAY TAKING LEVOTHYROXINE SODIUM 25 MCG TABLET 1 TABLET ON AN EMPTY STOMACH IN THE MORNING ORALLY ONCE A DAY TAKING OMEPRAZOLE 40 MG CAPSULE DELAYED RELEASE 1 CAPSULE ORALLY ONCE A DAY TAKING ASA 2 81 MG TABS ORAL TAKING ZYRTEC ALLERGY 10 MG TABLET 1 TABLET NEEDED ORALLY ONCE A DAY TAKING FLONASE ALLERGY RELIEF 50 MCG/ACT SUSPENSION 1 SPRAY IN EACH NOSTRIL NASALLY ONCE A DAY TAKING ADVAIR DISKUS 250-50 MCG/DOSE AEROSOL POWDER BREATH ACTIVATED 1 PUFF INHALATION TWICE A DAY TAKING TRAMADOL HCL 50 MG TABLET 2 TABLETS ORALLY EVERY 6 HRS NEEDED TAKING TENS THERAPY PAIN RELIEF - DEVICE TAKING ROSUVASTATIN CALCIUM 5 MG TABLET 1 TABLET ORALLY ONCE A DAY, NOTES: 03/05 PM TAKING CYCLOBENZAPRINE HCL 5 MG TABLET 1 TABLET NEEDED ORALLY THREE TIMES A DAY, NOTES: 03/05 PM TAKING RANITIDINE HCL 300 MG CAPSULE 1 CAPSULE ORALLY ONCE A DAY NOT-TAKING GABAPENTIN 100 MG CAPSULE 1 CAPSULE ORALLY TWICE A DAY NOT-TAKING SIMVASTATIN 20 MG TABLET 1 TABLET IN THE EVENING ORALLY ONCE A DAY MEDICATION LIST REVIEWED AND RECONCILED WITH THE PATIENT PAST MEDICAL HISTORY CHRONIC BACK PAIN DDD HYPOTHYROIDISM ALLERGIES ELEVATED CHOLESTEROL DEPRESSION GERD OSTEOARTHRITIS ANXIETY ALLERGIES CLARITHROMYCIN: ANAPHYLAXIS - ALLERGY SPORANOX: HIVES - ALLERGY SURGICAL HISTORY HYSTERECTOMY GALLBLADDER REMOVAL BILATERAL TORN MENISCUS FUSION OF CERVIAL NECK SINUS SURGERY X3 FAMILY HISTORY FATHER: MOTHER: DAUGHTER(S): , DIAGNOSED WITH CANCER 1DAUGHTER(S) . DAUGHTER PASSED FROM CANCER OF THE BILE DUCTS 2 YRS AGO. PATIENT HAS KIDNEY STONES AND PATIENT IS ADOPTED. SOCIAL HISTORY GENERAL: TOBACCO USE ARE YOU A:NONSMOKER EDUCATION LEVEL OF EDUCATION:FINISHED COLLEGE DIET: REGULAR. LANGUAGE LANGUAGES SPOKEN:FRISIAN RECREATIONAL DRUG USE DRUG USE?NO LEARNING BARRIERS / SPECIAL NEEDS BARRIERS TO LEARNING?NO HEARING IMPAIRED?YES VISION IMPAIRED?NO COGNITIVELY IMPAIRED?NO :HEARING AIDES READINESS TO LEARN?YES LEARNING PREFERENCES?YES :HANDOUTS, DEMONSTRATION/VERBAL INSTRUCTION LEARNING CAPABILITIES PRESENT?YES EMOTIONAL BARRIERS?NO SPECIAL DEVICES?NO MANAGER FITNESS NEEDED?NO PAIN CLINIC PFS, CLERGY, PUBLIC HEALTH REFERRALS WAS THE PROVIDER NOTIFIED OF ANY PERTINENT INFO?YES HAS THE PATIENT BEEN EDUCATED REGARDING HIS/HER PLAN OF CARE?YES HAS THE PATIENT BEEN EDUCATED REGARDING PAIN, THE RISK FOR PAIN, THE IMPORTANCE OF EFFECTIVE PAIN MANAGEMENT, AND THE PAIN ASSESSMENT PROCESS?YES LATEX QUESTIONNAIRE LATEX ALLERGY : HAVE YOU EVER DEVELOPED ANY TYPE OF REACTION AFTER HANDLING LATEX PRODUCTS SUCH RUBBER GLOVES, CONDOMS, DIAPHRAGMS, BALLOONS, SOCKS, OR UNDERWEAR?NO LATEX ALLERGY : HAVE YOU EVER DEVELOPED ANY TYPE OF REACTION DURING OR AFTER DENTAL APPOINTMENT, VAGINAL/RECTAL EXAMINATION, SURGICAL PROCEDURE, OR ANY OTHER EXPOSURE?NO DATE ASKED : 03/06/2019 LATEX RISK : HAVE YOU EVER HAD ANY DIFFICULTY BREATHING OR HIVES AFTER EATING OR HANDLING ANY FRUITS, OR VEGETABLES; SUCH KIWI, BANANAS, STONE FRUITS, OR CHESTNUTSNO LATEX RISK : DO YOU HAVE A PREVIOUS PERSONAL HISTORY OF MORE THAN NINE SURGERIES, SPINA BIFIDA, OR REPEATED CATHERIZATIONS? NO LATEX RISK : ARE YOU FREQUENTLY EXPOSED TO LATEX PRODUCTS IN YOUR OCCUPATION?NO CAFFEINE CAFFEINE USE?YES HOW OFTEN AND HOW MUCH? COFFEE ADVANCE DIRECTIVE ADVANCE DIRECTIVE DISCUSSED WITH PATIENT:YES HCP - PATEL QUEEN (STEP DAUGHTER) & HANNAH OH (FRIEND), DOCUMENT NOT PROVIDED. CATHOLIC [id number] VOODOO MARITAL STATUS: . ALCOHOL SCREENING DID YOU HAVE A DRINK CONTAINING ALCOHOL IN THE PAST YEAR?YES HOW OFTEN DID YOU HAVE SIX OR MORE DRINKS ON ONE OCCASION IN THE PAST YEAR?NEVER (0 POINTS) HOW MANY DRINKS DID YOU HAVE ON A TYPICAL DAY WHEN YOU WERE DRINKING IN THE PAST YEAR?1 OR 2 (0 POINTS) HOW OFTEN DID YOU HAVE A DRINK CONTAINING ALCOHOL IN THE PAST YEAR?MONTHLY OR LESS (1 POINT) POINTS1 INTERPRETATIONNEGATIVE OCCUPATION: RETIRED. REVIEWED WITH PATIENT 10/13/18 0996 JSREVIEWED WITH PATIENT 11/01/18 1009 JSREVIEWED WITH PATIENT 03/02/19 1025 [id number] WITH PATIENT 03/20/19 0951 NLJ. HOSPITALIZATION/MAJOR DIAGNOSTIC PROCEDURE SURGERY RELATED CERVICAL FRACTURE REVIEW OF SYSTEMS REVIEWED BY: PROVIDER: KENDALL LARA . CONSTITUTIONAL: ANY CHANGE IN YOUR MEDICAL CONDITION? NO . CHILLS NO . FEVER NO . INFECTION: DO YOU HAVE NEW INFECTIONS? NO . DO YOU HAVE HISTORY OF MRSA? NO . MUSCULOSKELETAL: ANY NEW PATTERNS OF PAIN OR NUMBNESS? NO . GASTROENTEROLOGY: ANY NEW CHANGE IN BOWEL CONTROL? NO . GENITOURINARY: ANY NEW CHANGE IN BLADDER CONTROL? NO . IS THERE A CHANCE YOU COULD BE ? NO . HEMATOLOGY/LYMPH: DO YOU TAKE ANY BLOOD THINNERS? (FOR EXAMPLE- COUMADIN, PLAVIX, AGGRENOX, PLATEL, PRADAXA, OR XARELTO) NO . WHEN WAS YOUR LAST DOSE? DATE: TIME: . NEUROLOGY: HAVE YOU FALLEN IN THE PAST 12 MONTHS? NO . ANY NEW EXTREMITY NUMBNESS OR WEAKNESS? NO . CARDIOLOGY: DO YOU HAVE A PACEMAKER OR DEFIBRILLATOR? NO . RESPIRATORY: HAVE YOU BEEN SICK IN THE PAST WEEK? NO . FEVER NO . FLU LIKE SYMPTOMS? NO . COUGH NO . INTEGUMENTARY: DO YOU HAVE ANY RASHES OR OPEN SORES? NO . ALLERGIC/IMMUNO: ARE YOU ALLERGIC TO IV DYE? NO . ANY NEW ALLERGIES? NO . PSYCHIATRIC: DO YOU HAVE THOUGHTS OF HURTING YOURSELF OR SOMEONE ELSE? NO . ARE YOU ABUSED, NEGLECTED, OR IN AN UNSAFE ENVIRONMENT? NO . ENDOCRINOLOGY: ARE YOU DIABETIC? NO . OTHER: DO YOU NEED ANY PRESCRIPTIONS? NO . IF YES, PLEASE LIST: ____ . ANY NEW PROBLEMS WITH YOUR MEDICATIONS? NO . WHEN DID YOU LAST EAT? ____ . WHEN DID YOU LAST DRINK? ____ . WHAT DID YOU LAST DRINK? ____ . NAME OF PERSON DRIVING YOU HOME? ____ . DO YOU HAVE ANY OTHER QUESTIONS OR CONCERNS YES- TRIGGER POINTS DID NOT WORK WELL, PATIENT STATES THEY MAYBE WORKED FOR A COUPLE OF DAYS ONLY. PAIN HAS RETURNED TO THE LEVEL IT WAS BEFORE TPI, PATIENT STATES WHEN SHE HAD TPI WITH STERIODS SHE WAS PAIN FREE FOR ONE WEEK. PATIENT STATES SHE IS WILLING TO TRY TPI AGAIN BUT WITH THE STERIODS . VITAL SIGNS WT 166.6 LBS, HT 62 IN, BMI 30.47 INDEX, BP 124/68 MM HG, HR 97 /MIN, RR 18 /MIN, TEMP 97.4 F, OXYGEN SAT % 95%, SAFE IN ENV? (Y/N) YES, REVIEWED BY: MANOLO. EXAMINATION GENERAL EXAMINATION: GENERALNO ACUTE DISTRESS, WELL NOURISHED AND HYDRATED. PSYCHAPPROPRIATE MOOD AND AFFECT . LUNGS:CLEAR TO AUSCULTATION BILATERALLY, NO WHEEZES, RHONCHI, RALES. HEART:NO MURMURS, REGULAR RATE AND RHYTHM. BACK:TENDER LEFT PARASPINOUS. SKIN SHOWS NO ERYTHEMA, ECCHYMOSIS, INCREASED WARMTH, AND/OR SKIN ERUPTIONS . ASSESSMENTS MYALGIA, OTHER SITE - M79.18 (PRIMARY) TREATMENT MYALGIA, OTHER SITE NOTES: TPI OF LEFT PARASPINOUS. CLINICAL NOTES: 73 YEAR OLD FEMALE IN FOR POST TPI FOLLOW UP. GIVEN PRESENTING SYMPTOMS AND RESULTS OF PHYSICAL EXAMINATION RECOMMENDED REPEAT TPI WITH STEROIDS. PATIENT HAS EXPRESSED UNDERSTANDING OF AND WAS IN AGREEMENT WITH TREATMENT PLAN. GIVEN TIME TO ASK QUESTIONS AND EXPRESS CONCERNS. PREVENTIVE MEDICINE PAIN CLINIC TEACHING: PROCEDURE TEACHING PRE PROCEDURE INSTRUCTIONS REVIEWED WITH PT, PT VERBALIZES UNDERSTANDING. LAS. PROCEDURE CODES FA211 ESTABILISHED PATIENT [facility] CHARGE DISPOSITION & COMMUNICATION FOLLOW UP POST PROCEDURE (REASON: TPI OF LEFT PARASPINOUS) ELECTRONICALLY SIGNED BY KERI YEUNG ON 03/21/2019 AT 11:46 AM EDT DISCLAIMER : THIS IS A VISIT SUMMARY EXTRACTED FROM THE [facility] CHART. IT IS NOT A COPY OF THE [facility] PROGRESS NOTE. QING
== END ==
LOC: M PAIN 09:45
PROVIDERS: ATTEND Family Medicine
DX: M79.18 Myalgia, other site (principal); E03.9 Hypothyroidism, unspecified; E78.00 Pure hypercholesterolemia, unspecified; Z86.59 Personal history of other mental and behavioral disorders; K21.9 Gastro-esophageal reflux disease without esophagitis; M19.90 Unspecified osteoarthritis, unspecified site; Z88.1 Allergy status to other antibiotic agents; Z88.8 Allergy status to other drugs, medicaments and biological substances; Z79.82 Long term (current) use of aspirin; Z79.899 Other long term (current) drug therapy

== ENCOUNTER → 2019-05-03 | Outpatient (CLI) | payer MEDICARE, OTHER ==
[~2019-05-03] MED LIST changes: +BUPIVACAINE HCL 0.25% 10 ML VIAL As Ordered ONE; +BUPIVACAINE HCL 0.25% 30 ML VIAL As Ordered ONE; +TRIAMCINOLONE ACETONIDE SUSP 40 MG/ML VIAL (J3301) As Ordered ONE
--- NOTE | 2019-05-19 01:43 | ECWPNPC ---
PATIENT NAME: SANTOSH ARNDT : 1945 GENDER: FEMALE VISIT DATE: 05/03/2019 DISCHARGE DATE: 05/03/19 1232 VISIT LOCKED DATE TIME: PHYSICIAN: SUSANNA FRANCO MD RESOURCE: SUSANNA FRANCO MD REASON FOR APPOINTMENT 1. TPI LEFT THORACIC HISTORY OF PRESENT ILLNESS HISTORY OF PRESENT ILLNESS: PAIN THE PATIENT DESCRIBES THE PAIN... FALL RISK SCREENING: SCREENING :NO FALLS REPORTED IN THE LAST YEAR CURRENT MEDICATIONS TAKING LEXAPRO 10 MG TABLET 1 TABLET ORALLY ONCE A DAY TAKING LEVOTHYROXINE SODIUM 25 MCG TABLET 1 TABLET ON AN EMPTY STOMACH IN THE MORNING ORALLY ONCE A DAY TAKING OMEPRAZOLE 40 MG CAPSULE DELAYED RELEASE 1 CAPSULE ORALLY ONCE A DAY TAKING ASA 2 81 MG TABS ORAL TAKING ZYRTEC ALLERGY 10 MG TABLET 1 TABLET NEEDED ORALLY ONCE A DAY TAKING FLONASE ALLERGY RELIEF 50 MCG/ACT SUSPENSION 1 SPRAY IN EACH NOSTRIL NASALLY ONCE A DAY TAKING ADVAIR DISKUS 250-50 MCG/DOSE AEROSOL POWDER BREATH ACTIVATED 1 PUFF INHALATION TWICE A DAY TAKING TRAMADOL HCL 50 MG TABLET 2 TABLETS ORALLY EVERY 6 HRS NEEDED TAKING TENS THERAPY PAIN RELIEF - DEVICE TAKING ROSUVASTATIN CALCIUM 5 MG TABLET 1 TABLET ORALLY ONCE A DAY, NOTES: 03/05 PM TAKING CYCLOBENZAPRINE HCL 5 MG TABLET 1 TABLET NEEDED ORALLY THREE TIMES A DAY, NOTES: 03/05 PM TAKING RANITIDINE HCL 300 MG CAPSULE 1 CAPSULE ORALLY ONCE A DAY NOT-TAKING GABAPENTIN 100 MG CAPSULE 1 CAPSULE ORALLY TWICE A DAY NOT-TAKING SIMVASTATIN 20 MG TABLET 1 TABLET IN THE EVENING ORALLY ONCE A DAY MEDICATION LIST REVIEWED AND RECONCILED WITH THE PATIENT PAST MEDICAL HISTORY CHRONIC BACK PAIN DDD HYPOTHYROIDISM ALLERGIES ELEVATED CHOLESTEROL DEPRESSION GERD OSTEOARTHRITIS ANXIETY ALLERGIES CLARITHROMYCIN: ANAPHYLAXIS - ALLERGY SPORANOX: HIVES - ALLERGY SURGICAL HISTORY HYSTERECTOMY GALLBLADDER REMOVAL BILATERAL TORN MENISCUS FUSION OF CERVIAL NECK SINUS SURGERY X3 FAMILY HISTORY FATHER: MOTHER: DAUGHTER(S): , DIAGNOSED WITH OTHER MALIGNANT NEOPLASM OF UNSPECIFIED SITE 1DAUGHTER(S) . DAUGHTER PASSED FROM CANCER OF THE BILE DUCTS 2 YRS AGO. PATIENT HAS KIDNEY STONES AND PATIENT IS ADOPTED. SOCIAL HISTORY GENERAL: TOBACCO USE ARE YOU A:NONSMOKER EDUCATION LEVEL OF EDUCATION:FINISHED COLLEGE DIET: REGULAR. LANGUAGE LANGUAGES SPOKEN:[place] RECREATIONAL DRUG USE DRUG USE?NO LEARNING BARRIERS / SPECIAL NEEDS BARRIERS TO LEARNING?NO HEARING IMPAIRED?YES VISION IMPAIRED?NO COGNITIVELY IMPAIRED?NO :HEARING AIDES READINESS TO LEARN?YES LEARNING PREFERENCES?YES :HANDOUTS, DEMONSTRATION/VERBAL INSTRUCTION LEARNING CAPABILITIES PRESENT?YES EMOTIONAL BARRIERS?NO SPECIAL DEVICES?NO SALESPERSON PARTS NEEDED?NO PAIN CLINIC PFS, CLERGY, PUBLIC HEALTH REFERRALS WAS THE PROVIDER NOTIFIED OF ANY PERTINENT INFO?YES HAS THE PATIENT BEEN EDUCATED REGARDING HIS/HER PLAN OF CARE?YES HAS THE PATIENT BEEN EDUCATED REGARDING PAIN, THE RISK FOR PAIN, THE IMPORTANCE OF EFFECTIVE PAIN MANAGEMENT, AND THE PAIN ASSESSMENT PROCESS?YES LATEX QUESTIONNAIRE LATEX ALLERGY : HAVE YOU EVER DEVELOPED ANY TYPE OF REACTION AFTER HANDLING LATEX PRODUCTS SUCH RUBBER GLOVES, CONDOMS, DIAPHRAGMS, BALLOONS, SOCKS, OR UNDERWEAR?NO LATEX ALLERGY : HAVE YOU EVER DEVELOPED ANY TYPE OF REACTION DURING OR AFTER DENTAL APPOINTMENT, VAGINAL/RECTAL EXAMINATION, SURGICAL PROCEDURE, OR ANY OTHER EXPOSURE?NO LATEX RISK : HAVE YOU EVER HAD ANY DIFFICULTY BREATHING OR HIVES AFTER EATING OR HANDLING ANY FRUITS, OR VEGETABLES; SUCH KIWI, BANANAS, STONE FRUITS, OR CHESTNUTSNO LATEX RISK : DO YOU HAVE A PREVIOUS PERSONAL HISTORY OF MORE THAN NINE SURGERIES, SPINA BIFIDA, OR REPEATED CATHERIZATIONS? NO LATEX RISK : ARE YOU FREQUENTLY EXPOSED TO LATEX PRODUCTS IN YOUR OCCUPATION?NO DATE ASKED : 05/03/2019 CAFFEINE CAFFEINE USE?YES HOW OFTEN AND HOW MUCH? COFFEE ADVANCE DIRECTIVE ADVANCE DIRECTIVE DISCUSSED WITH PATIENT:YES HCP - PATEL QUEEN (STEP DAUGHTER) & HANNAH OH (FRIEND), DOCUMENT NOT PROVIDED. NONDENOMINATIONAL [id number] ISLAM MARITAL STATUS: . ALCOHOL SCREENING DID YOU HAVE A DRINK CONTAINING ALCOHOL IN THE PAST YEAR?YES HOW OFTEN DID YOU HAVE SIX OR MORE DRINKS ON ONE OCCASION IN THE PAST YEAR?NEVER (0 POINTS) HOW MANY DRINKS DID YOU HAVE ON A TYPICAL DAY WHEN YOU WERE DRINKING IN THE PAST YEAR?1 OR 2 (0 POINTS) HOW OFTEN DID YOU HAVE A DRINK CONTAINING ALCOHOL IN THE PAST YEAR?MONTHLY OR LESS (1 POINT) POINTS1 INTERPRETATIONNEGATIVE OCCUPATION: RETIRED. REVIEWED WITH PATIENT 10/13/18 0928 JSREVIEWED WITH PATIENT 11/01/18 1009 JSREVIEWED WITH PATIENT 03/02/19 1025 [id number] WITH PATIENT 03/20/19 0951 [facility]. HOSPITALIZATION/MAJOR DIAGNOSTIC PROCEDURE SURGERY RELATED CERVICAL FRACTURE REVIEW OF SYSTEMS REVIEWED BY: PROVIDER: . CONSTITUTIONAL: ANY CHANGE IN YOUR MEDICAL CONDITION? NO . CHILLS NO . FEVER NO . INFECTION: DO YOU HAVE NEW INFECTIONS? NO . DO YOU HAVE HISTORY OF MRSA? NO . MUSCULOSKELETAL: ANY NEW PATTERNS OF PAIN OR NUMBNESS? NO . GASTROENTEROLOGY: ANY NEW CHANGE IN BOWEL CONTROL? NO . GENITOURINARY: ANY NEW CHANGE IN BLADDER CONTROL? NO . IS THERE A CHANCE YOU COULD BE ? NO . HEMATOLOGY/LYMPH: DO YOU TAKE ANY BLOOD THINNERS? (FOR EXAMPLE- COUMADIN, PLAVIX, AGGRENOX, PLATEL, PRADAXA, OR XARELTO) NO . WHEN WAS YOUR LAST DOSE? DATE: TIME: . NEUROLOGY: HAVE YOU FALLEN IN THE PAST 12 MONTHS? NO . ANY NEW EXTREMITY NUMBNESS OR WEAKNESS? NO . CARDIOLOGY: DO YOU HAVE A PACEMAKER OR DEFIBRILLATOR? NO . RESPIRATORY: HAVE YOU BEEN SICK IN THE PAST WEEK? NO . FEVER NO . FLU LIKE SYMPTOMS? NO . COUGH NO . INTEGUMENTARY: DO YOU HAVE ANY RASHES OR OPEN SORES? NO . ALLERGIC/IMMUNO: ARE YOU ALLERGIC TO IV DYE? NO . ANY NEW ALLERGIES? NO . PSYCHIATRIC: DO YOU HAVE THOUGHTS OF HURTING YOURSELF OR SOMEONE ELSE? NO . ARE YOU ABUSED, NEGLECTED, OR IN AN UNSAFE ENVIRONMENT? NO . ENDOCRINOLOGY: ARE YOU DIABETIC? NO . OTHER: DO YOU NEED ANY PRESCRIPTIONS? NO . IF YES, PLEASE LIST: ____ . ANY NEW PROBLEMS WITH YOUR MEDICATIONS? NO . WHEN DID YOU LAST EAT? 9-18 9PM . WHEN DID YOU LAST DRINK? 9-19 8AM . WHAT DID YOU LAST DRINK? GREEN TEA . NAME OF PERSON DRIVING YOU HOME? SOLOMON . DO YOU HAVE ANY OTHER QUESTIONS OR CONCERNS NO . VITAL SIGNS WT 167.2 LBS, HT 62 IN, BMI 30.58 INDEX, BP 123/68 MM HG, HR 81 /MIN, RR 18 /MIN, TEMP 97.4 F, OXYGEN SAT % 94%, SAFE IN ENV? (Y/N) Y, NA INITIALS AW 1104, REVIEWED BY: DS. ASSESSMENTS MYALGIA, OTHER SITE - M79.18 (PRIMARY) PROCEDURES PN TRIGGER POINT INJECTION WITH STEROIDS PRE PROCEDURE DIAGNOSIS 1. MYALGIA 2. PAIN AT LEFT THORACIC AREA POST PROCEDURE DIAGNOSIS 1. MYALGIA 2. PAIN AT LEFT THORACIC AREA PROCEDURE TRIGGER POINT INJECTION AT LEFT THORACIC AREA SURGEON DR. SUSANNA FRANCO TRIM AND BURR OPERATOR NONE ANESTHESIA LOCAL PRE PROCEDURE NOTE THE PATIENT HAS A HISTORY OF CHRONIC PAIN AT THE LEFT THORACIC AREA. I EVALUATED THE PATIENT AND REVIEWED THE CHART. THERE IS EVIDENCE OF BANDS OF TISSUE WITH RESTRICTION OF MOVEMENT AND PRESENCE OF TRIGGER POINT AT THE AFFECTED AREA. I WENT OVER THE RISKS, ALTERNATIVES, AND BENEFITS ASSOCIATED WITH THIS PROCEDURE. THE PATIENT WOULD LIKE TO PROCEED AND GIVE CONSENT TO PERFORMED THE PROCEDURE. THE PATIENT DENIES UNEXPLAINABLE WEIGHT LOSS, FEVER, CHILLS, OR NEW CHANGES IN URINARY OR BOWEL CONTROL DESCRIPTION OF PROCEDURE THE PATIENT WAS BROUGHT TO THE PROCEDURE ROOM AND PLACED IN THE SITTING POSITION. THE AREA WAS CLEANED WITH ALCOHOL. THE PROCEDURE WAS DONE USING ASEPTIC STERILE TECHNIQUE. I CHECKED LATERALITY AND THE LEVEL WHERE THE PROCEDURE WAS GOING TO BE PERFORMED WITH THE PATIENT AND THE SUPPORTING STAFF AT THE MOMENT OF THE TIME OUT IN THE PROCEDURE ROOM. USING A 25-GAUGE NEEDLE, TRIGGER POINTS WERE INJECTED AT THE LEFT THORACIC AREA WITH A TOTAL OF 40 ML OF BUPIVACAINE 0.25% AND KENALOG 40 MG. THERE WAS NO EVIDENCE OF BLOOD, PARESTHESIA OR CEREBROSPINAL FLUID DURING THE PROCEDURE. THE PATIENT WAS SENT TO THE RECOVERY ROOM. THE PATIENT WAS MOVING THE EXTREMITIES AND DOING WELL. THERE WAS NO COMPLICATION DURING THE PROCEDURE POST PROCEDURE NOTE THE PATIENT WILL BE SEEN IN A FOLLOW UP IN THE NEXT FEW WEEKS. INSTRUCTIONS WERE GIVEN, QUESTIONS WERE ANSWERED, AND THE PATIENT EXPRESSED UNDERSTANDING AND AGREES WITH THE PLAN. I, ANGELO STEVEN, DOCUMENTED THE ABOVE INFORMATION ACTING A SCRIBE FOR DR. FRANCO. I HAVE REVIEWED THE ABOVE DOCUMENT, WRITTEN BY ANGELO MURRAY AND I VERIFY THAT IT IS ACCURATE. PROCEDURE CODES 14098 INJ TRIGGER POINT / [facility] DISPOSITION & COMMUNICATION FOLLOW UP 3 WEEKS ELECTRONICALLY SIGNED BY SUSANNA FRANCO MD, MD ON 05/18/2019 AT 09:48 AM EDT DISCLAIMER : THIS IS A VISIT SUMMARY EXTRACTED FROM THE [employer] CHART. IT IS NOT A COPY OF THE [employer] PROGRESS NOTE. QING
== END ==
LOC: M PAIN 10:45
PROVIDERS: ATTEND Anesthesiology
DX: M79.18 Myalgia, other site (principal); E03.9 Hypothyroidism, unspecified; M54.9 Dorsalgia, unspecified; E78.00 Pure hypercholesterolemia, unspecified; F32.9 Major depressive disorder, single episode, unspecified; K21.9 Gastro-esophageal reflux disease without esophagitis; M19.90 Unspecified osteoarthritis, unspecified site; F41.9 Anxiety disorder, unspecified; J30.9 Allergic rhinitis, unspecified; Z79.891 Long term (current) use of opiate analgesic; Z79.899 Other long term (current) drug therapy; Z88.1 Allergy status to other antibiotic agents; Z88.8 Allergy status to other drugs, medicaments and biological substances
CPT/HCPCS: 20552; J3301

== ENCOUNTER → 2019-05-17 | Outpatient (CLI) | payer MEDICARE, OTHER ==
[~2019-05-17] MED LIST changes: -BUPIVACAINE HCL 0.25% 10 ML VIAL As Ordered ONE; -BUPIVACAINE HCL 0.25% 30 ML VIAL As Ordered ONE; -TRIAMCINOLONE ACETONIDE SUSP 40 MG/ML VIAL (J3301) As Ordered ONE
--- NOTE | 2019-05-19 01:43 | ECWPNPC ---
PATIENT NAME: SANTOSH ARNDT : 1945 GENDER: FEMALE VISIT DATE: 05/17/2019 DISCHARGE DATE: 05/17/19 1150 VISIT LOCKED DATE TIME: PHYSICIAN: BAN GREENFIELD RESOURCE: BAN GREENFIELD REASON FOR APPOINTMENT 1. POST TPI HISTORY OF PRESENT ILLNESS HISTORY OF PRESENT ILLNESS: PAIN THE PATIENT DESCRIBES THE PAIN... 73-YEAR-OLD FEMALE IN FOR POST TPI FOLLOW-UP. SHE FEELS THE PROCEDURE WORKED WELL SHE RATED HER PAIN PREPROCEDURE AT A 7 OUT OF 10 AND POSTPROCEDURE AT A 0 OUT OF 10. SHE RATES HER PAIN CURRENTLY AT A 3 OUT OF 10 AND DESCRIBES IT STABBING. FALL RISK SCREENING: SCREENING :NO FALLS REPORTED IN THE LAST YEAR CURRENT MEDICATIONS TAKING LEXAPRO 10 MG TABLET 1 TABLET ORALLY ONCE A DAY TAKING LEVOTHYROXINE SODIUM 25 MCG TABLET 1 TABLET ON AN EMPTY STOMACH IN THE MORNING ORALLY ONCE A DAY TAKING OMEPRAZOLE 40 MG CAPSULE DELAYED RELEASE 1 CAPSULE ORALLY ONCE A DAY TAKING ASA 2 81 MG TABS ORAL TAKING ZYRTEC ALLERGY 10 MG TABLET 1 TABLET NEEDED ORALLY ONCE A DAY TAKING FLONASE ALLERGY RELIEF 50 MCG/ACT SUSPENSION 1 SPRAY IN EACH NOSTRIL NASALLY ONCE A DAY TAKING ADVAIR DISKUS 250-50 MCG/DOSE AEROSOL POWDER BREATH ACTIVATED 1 PUFF INHALATION TWICE A DAY TAKING TRAMADOL HCL 50 MG TABLET 2 TABLETS ORALLY EVERY 6 HRS NEEDED TAKING TENS THERAPY PAIN RELIEF - DEVICE TAKING ROSUVASTATIN CALCIUM 5 MG TABLET 1 TABLET ORALLY ONCE A DAY, NOTES: 03/05 PM TAKING CYCLOBENZAPRINE HCL 5 MG TABLET 1 TABLET NEEDED ORALLY THREE TIMES A DAY, NOTES: 03/05 PM TAKING RANITIDINE HCL 300 MG CAPSULE 1 CAPSULE ORALLY ONCE A DAY NOT-TAKING GABAPENTIN 100 MG CAPSULE 1 CAPSULE ORALLY TWICE A DAY NOT-TAKING SIMVASTATIN 20 MG TABLET 1 TABLET IN THE EVENING ORALLY ONCE A DAY MEDICATION LIST REVIEWED AND RECONCILED WITH THE PATIENT PAST MEDICAL HISTORY CHRONIC BACK PAIN DDD HYPOTHYROIDISM ALLERGIES ELEVATED CHOLESTEROL DEPRESSION GERD OSTEOARTHRITIS ANXIETY ALLERGIES CLARITHROMYCIN: ANAPHYLAXIS - ALLERGY SPORANOX: HIVES - ALLERGY SURGICAL HISTORY HYSTERECTOMY GALLBLADDER REMOVAL BILATERAL TORN MENISCUS FUSION OF CERVIAL NECK SINUS SURGERY X3 FAMILY HISTORY FATHER: MOTHER: DAUGHTER(S): , DIAGNOSED WITH OTHER MALIGNANT NEOPLASM OF UNSPECIFIED SITE 1DAUGHTER(S) . DAUGHTER PASSED FROM CANCER OF THE BILE DUCTS 2 YRS AGO. PATIENT HAS KIDNEY STONES AND PATIENT IS ADOPTED. SOCIAL HISTORY GENERAL: TOBACCO USE ARE YOU A:NONSMOKER EDUCATION LEVEL OF EDUCATION:FINISHED COLLEGE DIET: REGULAR. LANGUAGE LANGUAGES SPOKEN:MOROCCAN RECREATIONAL DRUG USE DRUG USE?NO LEARNING BARRIERS / SPECIAL NEEDS BARRIERS TO LEARNING?NO HEARING IMPAIRED?YES VISION IMPAIRED?NO COGNITIVELY IMPAIRED?NO :HEARING AIDES READINESS TO LEARN?YES LEARNING PREFERENCES?YES :HANDOUTS, DEMONSTRATION/VERBAL INSTRUCTION LEARNING CAPABILITIES PRESENT?YES EMOTIONAL BARRIERS?NO SPECIAL DEVICES?NO DYE RANGE FEEDER NEEDED?NO PAIN CLINIC PFS, CLERGY, PUBLIC HEALTH REFERRALS WAS THE PROVIDER NOTIFIED OF ANY PERTINENT INFO?YES HAS THE PATIENT BEEN EDUCATED REGARDING HIS/HER PLAN OF CARE?YES HAS THE PATIENT BEEN EDUCATED REGARDING PAIN, THE RISK FOR PAIN, THE IMPORTANCE OF EFFECTIVE PAIN MANAGEMENT, AND THE PAIN ASSESSMENT PROCESS?YES LATEX QUESTIONNAIRE LATEX ALLERGY : HAVE YOU EVER DEVELOPED ANY TYPE OF REACTION AFTER HANDLING LATEX PRODUCTS SUCH RUBBER GLOVES, CONDOMS, DIAPHRAGMS, BALLOONS, SOCKS, OR UNDERWEAR?NO LATEX ALLERGY : HAVE YOU EVER DEVELOPED ANY TYPE OF REACTION DURING OR AFTER DENTAL APPOINTMENT, VAGINAL/RECTAL EXAMINATION, SURGICAL PROCEDURE, OR ANY OTHER EXPOSURE?NO DATE ASKED : 05/03/2019 LATEX RISK : HAVE YOU EVER HAD ANY DIFFICULTY BREATHING OR HIVES AFTER EATING OR HANDLING ANY FRUITS, OR VEGETABLES; SUCH KIWI, BANANAS, STONE FRUITS, OR CHESTNUTSNO LATEX RISK : DO YOU HAVE A PREVIOUS PERSONAL HISTORY OF MORE THAN NINE SURGERIES, SPINA BIFIDA, OR REPEATED CATHERIZATIONS? NO LATEX RISK : ARE YOU FREQUENTLY EXPOSED TO LATEX PRODUCTS IN YOUR OCCUPATION?NO CAFFEINE CAFFEINE USE?YES HOW OFTEN AND HOW MUCH? COFFEE ADVANCE DIRECTIVE ADVANCE DIRECTIVE DISCUSSED WITH PATIENT:YES HCP - PATEL QUEEN (STEP DAUGHTER) & HANNAH OH (FRIEND), DOCUMENT NOT PROVIDED. [id number] RASTAFARIAN MARITAL STATUS: . ALCOHOL SCREENING DID YOU HAVE A DRINK CONTAINING ALCOHOL IN THE PAST YEAR?YES HOW OFTEN DID YOU HAVE SIX OR MORE DRINKS ON ONE OCCASION IN THE PAST YEAR?NEVER (0 POINTS) HOW MANY DRINKS DID YOU HAVE ON A TYPICAL DAY WHEN YOU WERE DRINKING IN THE PAST YEAR?1 OR 2 (0 POINTS) HOW OFTEN DID YOU HAVE A DRINK CONTAINING ALCOHOL IN THE PAST YEAR?MONTHLY OR LESS (1 POINT) POINTS1 INTERPRETATIONNEGATIVE OCCUPATION: RETIRED. REVIEWED WITH PATIENT 10/13/18 0933 JSREVIEWED WITH PATIENT 11/01/18 1009 JSREVIEWED WITH PATIENT 03/02/19 1025 [id number] WITH PATIENT 03/20/19 0951 NLJREVIEWED WITH PATIENT 05/17/19 1120 LAS. HOSPITALIZATION/MAJOR DIAGNOSTIC PROCEDURE SURGERY RELATED CERVICAL FRACTURE REVIEW OF SYSTEMS REVIEWED BY: PROVIDER: KENDALL LARA . CONSTITUTIONAL: ANY CHANGE IN YOUR MEDICAL CONDITION? NO . CHILLS NO . FEVER NO . INFECTION: DO YOU HAVE NEW INFECTIONS? NO . DO YOU HAVE HISTORY OF MRSA? NO . MUSCULOSKELETAL: ANY NEW PATTERNS OF PAIN OR NUMBNESS? NO . GASTROENTEROLOGY: ANY NEW CHANGE IN BOWEL CONTROL? NO . GENITOURINARY: ANY NEW CHANGE IN BLADDER CONTROL? NO . IS THERE A CHANCE YOU COULD BE ? NO . HEMATOLOGY/LYMPH: DO YOU TAKE ANY BLOOD THINNERS? (FOR EXAMPLE- COUMADIN, PLAVIX, AGGRENOX, PLATEL, PRADAXA, OR XARELTO) NO . WHEN WAS YOUR LAST DOSE? DATE: TIME: . NEUROLOGY: HAVE YOU FALLEN IN THE PAST 12 MONTHS? NO . ANY NEW EXTREMITY NUMBNESS OR WEAKNESS? NO . CARDIOLOGY: DO YOU HAVE A PACEMAKER OR DEFIBRILLATOR? NO . RESPIRATORY: HAVE YOU BEEN SICK IN THE PAST WEEK? NO . FEVER NO . FLU LIKE SYMPTOMS? NO . COUGH NO . INTEGUMENTARY: DO YOU HAVE ANY RASHES OR OPEN SORES? NO . ALLERGIC/IMMUNO: ARE YOU ALLERGIC TO IV DYE? NO . ANY NEW ALLERGIES? NO . PSYCHIATRIC: DO YOU HAVE THOUGHTS OF HURTING YOURSELF OR SOMEONE ELSE? NO . ARE YOU ABUSED, NEGLECTED, OR IN AN UNSAFE ENVIRONMENT? NO . ENDOCRINOLOGY: ARE YOU DIABETIC? NO . OTHER: DO YOU NEED ANY PRESCRIPTIONS? NO . IF YES, PLEASE LIST: ____ . ANY NEW PROBLEMS WITH YOUR MEDICATIONS? NO . WHEN DID YOU LAST EAT? ____ . WHEN DID YOU LAST DRINK? ____ . WHAT DID YOU LAST DRINK? ____ . NAME OF PERSON DRIVING YOU HOME? ____ . DO YOU HAVE ANY OTHER QUESTIONS OR CONCERNS NO . VITAL SIGNS WT 167.4 LBS, HT 62 IN, BMI 30.61 INDEX, BP 133/59 MM HG, HR 80 /MIN, RR 18 /MIN, TEMP 97.6 F, OXYGEN SAT % 97%, SAFE IN ENV? (Y/N) YES, NA INITIALS SD 11:03, REVIEWED BY: NGOC. EXAMINATION GENERAL EXAMINATION: GENERALNO ACUTE DISTRESS, WELL NOURISHED AND HYDRATED. PSYCHAPPROPRIATE MOOD AND AFFECT . LUNGS:CLEAR TO AUSCULTATION BILATERALLY, NO WHEEZES, RHONCHI, RALES. HEART:NO MURMURS, REGULAR RATE AND RHYTHM. BACK:DENIES POINT TENDERNESS BUT STATES HAS INCREASED PAIN WITH ACTIVITY, STARTING SKIN SHOWS NO ERYTHEMA, ECCHYMOSIS, INCREASED WARMTH, AND/OR SKIN ERUPTIONS NOTED. . ASSESSMENTS MYALGIA, OTHER SITE - M79.18 (PRIMARY) TREATMENT MYALGIA, OTHER SITE NOTES: TPI LEFT THORACIC. CLINICAL NOTES: 73-YEAR-OLD FEMALE IN FOR POST TPI FOLLOW-UP. GIVEN PRESENTING SYMPTOMS AND RESULTS OF PHYSICAL EXAMINATION RECOMMENDED TPI OF THE LEFT THORACIC WITH POST PROCEDURAL FOLLOW-UP. PATIENT HAS EXPRESSED UNDERSTANDING OF AND WAS IN AGREEMENT WITH TREATMENT PLAN. GIVEN TIME TO ASK QUESTIONS AND EXPRESS CONCERNS. PROCEDURE CODES FA211 ESTABILISHED PATIENT [facility] CHARGE DISPOSITION & COMMUNICATION FOLLOW UP POSTPROCEDURE (REASON: TPI LEFT THORACIC) ELECTRONICALLY SIGNED BY KERI YEUNG ON 05/18/2019 AT 09:18 AM EDT DISCLAIMER : THIS IS A VISIT SUMMARY EXTRACTED FROM THE [employer] CHART. IT IS NOT A COPY OF THE [employer] PROGRESS NOTE. QNIG
== END ==
LOC: M PAIN 11:00
PROVIDERS: ATTEND Family Medicine
DX: M79.18 Myalgia, other site (principal); E03.9 Hypothyroidism, unspecified; Z86.59 Personal history of other mental and behavioral disorders; K21.9 Gastro-esophageal reflux disease without esophagitis; M19.90 Unspecified osteoarthritis, unspecified site; Z88.1 Allergy status to other antibiotic agents; Z88.8 Allergy status to other drugs, medicaments and biological substances; Z79.82 Long term (current) use of aspirin; Z79.899 Other long term (current) drug therapy

== ENCOUNTER → 2019-06-19 | Outpatient (CLI) | payer MEDICARE, OTHER ==
[~2019-06-19] MED LIST changes: +BUPIVACAINE HCL 0.25% 10 ML VIAL As Ordered ONE; +BUPIVACAINE HCL 0.25% 30 ML VIAL As Ordered ONE; +TRIAMCINOLONE ACETONIDE SUSP 40 MG/ML VIAL (J3301) As Ordered ONE
--- NOTE | 2019-07-03 05:20 | ECWPNPC ---
PATIENT NAME: SANTOSH ARNDT : 1945 GENDER: FEMALE VISIT DATE: 06/19/2019 DISCHARGE DATE: 06/19/19 1028 VISIT LOCKED DATE TIME: PHYSICIAN: SUSANNA FRANCO MD RESOURCE: SUSANNA FRANCO MD REASON FOR APPOINTMENT 1. TPI LEFT THORACIC HISTORY OF PRESENT ILLNESS HISTORY OF PRESENT ILLNESS: PAIN THE PATIENT DESCRIBES THE PAIN... FALL RISK SCREENING: SCREENING :NO FALLS REPORTED IN THE LAST YEAR CURRENT MEDICATIONS TAKING LEXAPRO 10 MG TABLET 1 TABLET ORALLY ONCE A DAY, NOTES: 06/19/19 0700 TAKING LEVOTHYROXINE SODIUM 25 MCG TABLET 1 TABLET ON AN EMPTY STOMACH IN THE MORNING ORALLY ONCE A DAY, NOTES: 06/19/19 0700 TAKING OMEPRAZOLE 40 MG CAPSULE DELAYED RELEASE 1 CAPSULE ORALLY ONCE A DAY, NOTES: 0700 TAKING ASA 2 81 MG TABS ORAL , NOTES: 06/18/19 PM TAKING ZYRTEC ALLERGY 10 MG TABLET 1 TABLET NEEDED ORALLY ONCE A DAY, NOTES: A COUPLE OF DAYS TAKING FLONASE ALLERGY RELIEF 50 MCG/ACT SUSPENSION 1 SPRAY IN EACH NOSTRIL NASALLY ONCE A DAY, NOTES: 06/419 HS TAKING ADVAIR DISKUS 250-50 MCG/DOSE AEROSOL POWDER BREATH ACTIVATED 1 PUFF INHALATION TWICE A DAY, NOTES: 06/18/19 HS TAKING TRAMADOL HCL 50 MG TABLET 2 TABLETS ORALLY EVERY 6 HRS NEEDED, NOTES: NONE IN A FEW DAYS TAKING TENS THERAPY PAIN RELIEF - DEVICE , NOTES: 06/18/19 TAKING ROSUVASTATIN CALCIUM 5 MG TABLET 1 TABLET ORALLY ONCE A DAY, NOTES: 06/18/191699 TAKING CYCLOBENZAPRINE HCL 5 MG TABLET 1 TABLET NEEDED ORALLY THREE TIMES A DAY, NOTES: ABOUT 3 DAYS TAKING RANITIDINE HCL 300 MG CAPSULE 1 CAPSULE ORALLY ONCE A DAY, NOTES: 06/18/19 170 NOT-TAKING GABAPENTIN 100 MG CAPSULE 1 CAPSULE ORALLY TWICE A DAY NOT-TAKING SIMVASTATIN 20 MG TABLET 1 TABLET IN THE EVENING ORALLY ONCE A DAY MEDICATION LIST REVIEWED AND RECONCILED WITH THE PATIENT PAST MEDICAL HISTORY CHRONIC BACK PAIN DDD HYPOTHYROIDISM ALLERGIES ELEVATED CHOLESTEROL DEPRESSION GERD OSTEOARTHRITIS ANXIETY ALLERGIES CLARITHROMYCIN: ANAPHYLAXIS - ALLERGY SPORANOX: HIVES - ALLERGY SURGICAL HISTORY HYSTERECTOMY GALLBLADDER REMOVAL BILATERAL TORN MENISCUS FUSION OF CERVIAL NECK SINUS SURGERY X3 FAMILY HISTORY FATHER: MOTHER: DAUGHTER(S): , DIAGNOSED WITH OTHER MALIGNANT NEOPLASM OF UNSPECIFIED SITE 1DAUGHTER(S) . DAUGHTER PASSED FROM CANCER OF THE BILE DUCTS 2 YRS AGO. PATIENT HAS KIDNEY STONES AND PATIENT IS ADOPTED. SOCIAL HISTORY GENERAL: TOBACCO USE ARE YOU A:NONSMOKER EDUCATION LEVEL OF EDUCATION:FINISHED COLLEGE DIET: REGULAR. LANGUAGE LANGUAGES SPOKEN:[place]ONG[place] RECREATIONAL DRUG USE DRUG USE?NO LEARNING BARRIERS / SPECIAL NEEDS BARRIERS TO LEARNING?NO HEARING IMPAIRED?YES VISION IMPAIRED?NO COGNITIVELY IMPAIRED?NO :HEARING AIDES READINESS TO LEARN?YES LEARNING PREFERENCES?YES :HANDOUTS, DEMONSTRATION/VERBAL INSTRUCTION LEARNING CAPABILITIES PRESENT?YES EMOTIONAL BARRIERS?NO SPECIAL DEVICES?NO DEVICE SALES CONSULTANT NEEDED?NO PAIN CLINIC PFS, CLERGY, PUBLIC HEALTH REFERRALS WAS THE PROVIDER NOTIFIED OF ANY PERTINENT INFO?YES HAS THE PATIENT BEEN EDUCATED REGARDING HIS/HER PLAN OF CARE?YES HAS THE PATIENT BEEN EDUCATED REGARDING PAIN, THE RISK FOR PAIN, THE IMPORTANCE OF EFFECTIVE PAIN MANAGEMENT, AND THE PAIN ASSESSMENT PROCESS?YES LATEX QUESTIONNAIRE LATEX ALLERGY : HAVE YOU EVER DEVELOPED ANY TYPE OF REACTION AFTER HANDLING LATEX PRODUCTS SUCH RUBBER GLOVES, CONDOMS, DIAPHRAGMS, BALLOONS, SOCKS, OR UNDERWEAR?NO LATEX ALLERGY : HAVE YOU EVER DEVELOPED ANY TYPE OF REACTION DURING OR AFTER DENTAL APPOINTMENT, VAGINAL/RECTAL EXAMINATION, SURGICAL PROCEDURE, OR ANY OTHER EXPOSURE?NO DATE ASKED : 05/03/2019 LATEX RISK : HAVE YOU EVER HAD ANY DIFFICULTY BREATHING OR HIVES AFTER EATING OR HANDLING ANY FRUITS, OR VEGETABLES; SUCH KIWI, BANANAS, STONE FRUITS, OR CHESTNUTSNO LATEX RISK : DO YOU HAVE A PREVIOUS PERSONAL HISTORY OF MORE THAN NINE SURGERIES, SPINA BIFIDA, OR REPEATED CATHERIZATIONS? NO LATEX RISK : ARE YOU FREQUENTLY EXPOSED TO LATEX PRODUCTS IN YOUR OCCUPATION?NO CAFFEINE CAFFEINE USE?YES HOW OFTEN AND HOW MUCH? COFFEE ADVANCE DIRECTIVE ADVANCE DIRECTIVE DISCUSSED WITH PATIENT:YES HCP - PATEL QUEEN (STEP DAUGHTER) & HANNAH OH (FRIEND), DOCUMENT NOT PROVIDED. YARSANI [id number] SHINTO MARITAL STATUS: . ALCOHOL SCREENING DID YOU HAVE A DRINK CONTAINING ALCOHOL IN THE PAST YEAR?YES HOW OFTEN DID YOU HAVE SIX OR MORE DRINKS ON ONE OCCASION IN THE PAST YEAR?NEVER (0 POINTS) HOW MANY DRINKS DID YOU HAVE ON A TYPICAL DAY WHEN YOU WERE DRINKING IN THE PAST YEAR?1 OR 2 (0 POINTS) HOW OFTEN DID YOU HAVE A DRINK CONTAINING ALCOHOL IN THE PAST YEAR?MONTHLY OR LESS (1 POINT) POINTS1 INTERPRETATIONNEGATIVE OCCUPATION: RETIRED. REVIEWED WITH PATIENT 10/13/18 0928 JSREVIEWED WITH PATIENT 11/01/18 1009 JSREVIEWED WITH PATIENT 03/02/19 1025 [id number] WITH PATIENT 03/20/19 0951 NLJREVIEWED WITH PATIENT 05/17/19 1120 LASREVIEWED WITH PATIENT 06/19/19 0855 NLJ. HOSPITALIZATION/MAJOR DIAGNOSTIC PROCEDURE SURGERY RELATED CERVICAL FRACTURE REVIEW OF SYSTEMS REVIEWED BY: PROVIDER: . CONSTITUTIONAL: ANY CHANGE IN YOUR MEDICAL CONDITION? NO . CHILLS NO . FEVER NO . INFECTION: DO YOU HAVE NEW INFECTIONS? NO . DO YOU HAVE HISTORY OF MRSA? NO . MUSCULOSKELETAL: ANY NEW PATTERNS OF PAIN OR NUMBNESS? NO . GASTROENTEROLOGY: ANY NEW CHANGE IN BOWEL CONTROL? NO . GENITOURINARY: ANY NEW CHANGE IN BLADDER CONTROL? NO . IS THERE A CHANCE YOU COULD BE ? NO . HEMATOLOGY/LYMPH: DO YOU TAKE ANY BLOOD THINNERS? (FOR EXAMPLE- COUMADIN, PLAVIX, AGGRENOX, PLATEL, PRADAXA, OR XARELTO) NO . WHEN WAS YOUR LAST DOSE? DATE: TIME: . NEUROLOGY: HAVE YOU FALLEN IN THE PAST 12 MONTHS? NO . ANY NEW EXTREMITY NUMBNESS OR WEAKNESS? NO . CARDIOLOGY: DO YOU HAVE A PACEMAKER OR DEFIBRILLATOR? NO . RESPIRATORY: HAVE YOU BEEN SICK IN THE PAST WEEK? NO . FEVER NO . FLU LIKE SYMPTOMS? NO . COUGH NO . INTEGUMENTARY: DO YOU HAVE ANY RASHES OR OPEN SORES? NO . ALLERGIC/IMMUNO: ARE YOU ALLERGIC TO IV DYE? NO . ANY NEW ALLERGIES? NO . PSYCHIATRIC: DO YOU HAVE THOUGHTS OF HURTING YOURSELF OR SOMEONE ELSE? NO . ARE YOU ABUSED, NEGLECTED, OR IN AN UNSAFE ENVIRONMENT? NO . ENDOCRINOLOGY: ARE YOU DIABETIC? NO . OTHER: DO YOU NEED ANY PRESCRIPTIONS? NO . IF YES, PLEASE LIST: ____ . ANY NEW PROBLEMS WITH YOUR MEDICATIONS? NO . WHEN DID YOU LAST EAT? 06/18/19 1700 . WHEN DID YOU LAST DRINK? 06/19/19 0700 . WHAT DID YOU LAST DRINK? WATER . NAME OF PERSON DRIVING YOU HOME? SOLOMON- . DO YOU HAVE ANY OTHER QUESTIONS OR CONCERNS NO . VITAL SIGNS WT 170.2 LBS, HT 62 IN, BMI 31.13 INDEX, BP 137/73 MM HG, HR 90 /MIN, RR 18 /MIN, TEMP 98.1 F, OXYGEN SAT % 98%, NA INITIALS SC 09:13, REVIEWED BY: NLJ. ASSESSMENTS MYALGIA, OTHER SITE - M79.18 (PRIMARY) PROCEDURES PN TRIGGER POINT INJECTION WITH STEROIDS PRE PROCEDURE DIAGNOSIS 1. MYALGIA 2. PAIN AT LEFT THORACIC AREA. POST PROCEDURE DIAGNOSIS 1. MYALGIA 2. PAIN AT LEFT THORACIC AREA. PROCEDURE TRIGGER POINT INJECTION AT LEFT THORACIC AREA. SURGEON DR. SUSANNA FRANCO BIOMEDICAL INSTRUMENT TECHNICIAN NONE ANESTHESIA LOCAL PRE PROCEDURE NOTE THE PATIENT HAS A HISTORY OF CHRONIC PAIN AT THE LEFT THORACIC AREA. I EVALUATED THE PATIENT AND REVIEWED THE CHART. THERE IS EVIDENCE OF BANDS OF TISSUE WITH RESTRICTION OF MOVEMENT AND PRESENCE OF TRIGGER POINT AT THE AFFECTED AREA. I WENT OVER THE RISKS, ALTERNATIVES, AND BENEFITS ASSOCIATED WITH THIS PROCEDURE. THE PATIENT WOULD LIKE TO PROCEED AND GIVES CONSENT TO PERFORM THE PROCEDURE. THE PATIENT DENIES UNEXPLAINABLE WEIGHT LOSS, FEVER, CHILLS, OR NEW CHANGES IN URINARY OR BOWEL CONTROL DESCRIPTION OF PROCEDURE THE PATIENT WAS BROUGHT TO THE PROCEDURE ROOM AND PLACED IN THE SITTING POSITION. THE AREA WAS CLEANED WITH ALCOHOL. THE PROCEDURE WAS DONE USING ASEPTIC STERILE TECHNIQUE. I CHECKED LATERALITY AND THE LEVEL WHERE THE PROCEDURE WAS GOING TO BE PERFORMED WITH THE PATIENT AND THE SUPPORTING STAFF AT THE MOMENT OF THE TIME OUT IN THE PROCEDURE ROOM. USING A 25-GAUGE NEEDLE, TRIGGER POINTS WERE INJECTED AT THE LEFT THORACIC AREA WITH A TOTAL OF 40 ML OF BUPIVACAINE 0.25% AND KENALOG 40 MG. THERE WAS NO EVIDENCE OF BLOOD, PARESTHESIA OR CEREBROSPINAL FLUID DURING THE PROCEDURE. THE PATIENT WAS SENT TO THE RECOVERY ROOM. THE PATIENT WAS MOVING THE EXTREMITIES AND DOING WELL. THERE WAS NO COMPLICATION DURING THE PROCEDURE POST PROCEDURE NOTE THE PATIENT WILL BE SEEN IN A FOLLOW UP IN THE NEXT FEW WEEKS. INSTRUCTIONS WERE GIVEN, QUESTIONS WERE ANSWERED, AND THE PATIENT EXPRESSED UNDERSTANDING AND AGREES WITH THE PLAN. I, MEREDITH RM, DOCUMENTED THE ABOVE INFORMATION ACTING A SCRIBE FOR DR. FRANCO. I HAVE REVIEWED THE ABOVE DOCUMENT, WRITTEN BY MEREDITH [id number] AND I VERIFY THAT IT IS ACCURATE. PROCEDURE CODES 55798 INJ TRIGGER POINT / [facility] DISPOSITION & COMMUNICATION FOLLOW UP 3 WEEKS ELECTRONICALLY SIGNED BY SUSANNA FRANCO MD, MD ON 07/02/2019 AT 05:24 PM EST DISCLAIMER : THIS IS A VISIT SUMMARY EXTRACTED FROM THE [employer] CHART. IT IS NOT A COPY OF THE [employer] PROGRESS NOTE. QING
== END ==
LOC: M PAIN 09:15
PROVIDERS: ATTEND Anesthesiology
DX: M79.18 Myalgia, other site (principal); E03.9 Hypothyroidism, unspecified; Z86.59 Personal history of other mental and behavioral disorders; K21.9 Gastro-esophageal reflux disease without esophagitis; Z88.1 Allergy status to other antibiotic agents; Z88.8 Allergy status to other drugs, medicaments and biological substances; Z79.82 Long term (current) use of aspirin; Z79.899 Other long term (current) drug therapy
CPT/HCPCS: 20552; J3301

== ENCOUNTER → 2019-07-04 | Outpatient (CLI) | payer MEDICARE, OTHER ==
[~2019-07-04] MED LIST changes: -BUPIVACAINE HCL 0.25% 10 ML VIAL As Ordered ONE; -BUPIVACAINE HCL 0.25% 30 ML VIAL As Ordered ONE; -TRIAMCINOLONE ACETONIDE SUSP 40 MG/ML VIAL (J3301) As Ordered ONE
--- NOTE | 2019-07-06 01:33 | ECWPNPC ---
PATIENT NAME: SANTOSH ARNDT : 1945 GENDER: FEMALE VISIT DATE: 07/04/2019 DISCHARGE DATE: 07/04/19 1154 VISIT LOCKED DATE TIME: PHYSICIAN: BAN GREENFIELD RESOURCE: BAN GREENFIELD REASON FOR APPOINTMENT 1. POST TPI HISTORY OF PRESENT ILLNESS HISTORY OF PRESENT ILLNESS: PAIN THE PATIENT DESCRIBES THE PAIN... 73-YEAR-OLD FEMALE IN FOR POST TPI FOLLOW-UP. SHE RATES HER PAIN PREPROCEDURE AT A 7 OUT OF 10 AND POST PROCEDURE AT A 4/10 SHE FEELS THE PROCEDURE IS STILL HELPING HER TODAY TO HELP ALLEVIATE HER SYMPTOMS. SHE RATES HER PAIN CURRENTLY AT A 0 OUT OF 10 AND DESCRIBES IT SHARP WHEN SHE DOES EXPERIENCE PAIN. FALL RISK SCREENING: SCREENING :NO FALLS REPORTED IN THE LAST YEAR CURRENT MEDICATIONS TAKING LEXAPRO 10 MG TABLET 1 TABLET ORALLY ONCE A DAY TAKING LEVOTHYROXINE SODIUM 25 MCG TABLET 1 TABLET ON AN EMPTY STOMACH IN THE MORNING ORALLY ONCE A DAY TAKING OMEPRAZOLE 40 MG CAPSULE DELAYED RELEASE 1 CAPSULE ORALLY ONCE A DAY TAKING ASA 2 81 MG TABS ORAL TAKING ZYRTEC ALLERGY 10 MG TABLET 1 TABLET NEEDED ORALLY ONCE A DAY TAKING FLONASE ALLERGY RELIEF 50 MCG/ACT SUSPENSION 1 SPRAY IN EACH NOSTRIL NASALLY ONCE A DAY TAKING ADVAIR DISKUS 250-50 MCG/DOSE AEROSOL POWDER BREATH ACTIVATED 1 PUFF INHALATION TWICE A DAY TAKING TRAMADOL HCL 50 MG TABLET 2 TABLETS ORALLY EVERY 6 HRS NEEDED TAKING TENS THERAPY PAIN RELIEF - DEVICE TAKING ROSUVASTATIN CALCIUM 5 MG TABLET 1 TABLET ORALLY ONCE A DAY TAKING CYCLOBENZAPRINE HCL 5 MG TABLET 1 TABLET NEEDED ORALLY THREE TIMES A DAY TAKING RANITIDINE HCL 300 MG CAPSULE 1 CAPSULE ORALLY ONCE A DAY NOT-TAKING GABAPENTIN 100 MG CAPSULE 1 CAPSULE ORALLY TWICE A DAY NOT-TAKING SIMVASTATIN 20 MG TABLET 1 TABLET IN THE EVENING ORALLY ONCE A DAY MEDICATION LIST REVIEWED AND RECONCILED WITH THE PATIENT PAST MEDICAL HISTORY CHRONIC BACK PAIN DDD HYPOTHYROIDISM ALLERGIES ELEVATED CHOLESTEROL DEPRESSION GERD OSTEOARTHRITIS ANXIETY ALLERGIES CLARITHROMYCIN: ANAPHYLAXIS - ALLERGY SPORANOX: HIVES - ALLERGY SURGICAL HISTORY HYSTERECTOMY GALLBLADDER REMOVAL BILATERAL TORN MENISCUS FUSION OF CERVIAL NECK SINUS SURGERY X3 FAMILY HISTORY FATHER: MOTHER: DAUGHTER(S): , DIAGNOSED WITH OTHER MALIGNANT NEOPLASM OF UNSPECIFIED SITE 1DAUGHTER(S) . DAUGHTER PASSED FROM CANCER OF THE BILE DUCTS 2 YRS AGO. PATIENT HAS KIDNEY STONES AND PATIENT IS ADOPTED. SOCIAL HISTORY GENERAL: TOBACCO USE ARE YOU A:NONSMOKER EDUCATION LEVEL OF EDUCATION:FINISHED COLLEGE DIET: REGULAR. LANGUAGE LANGUAGES SPOKEN:TURKMEN RECREATIONAL DRUG USE DRUG USE?NO LEARNING BARRIERS / SPECIAL NEEDS BARRIERS TO LEARNING?NO HEARING IMPAIRED?YES VISION IMPAIRED?NO COGNITIVELY IMPAIRED?NO :HEARING AIDES READINESS TO LEARN?YES LEARNING PREFERENCES?YES :HANDOUTS, DEMONSTRATION/VERBAL INSTRUCTION LEARNING CAPABILITIES PRESENT?YES EMOTIONAL BARRIERS?NO SPECIAL DEVICES?NO PICKLING DRUM OPERATOR NEEDED?NO PAIN CLINIC PFS, CLERGY, PUBLIC HEALTH REFERRALS WAS THE PROVIDER NOTIFIED OF ANY PERTINENT INFO?YES HAS THE PATIENT BEEN EDUCATED REGARDING HIS/HER PLAN OF CARE?YES HAS THE PATIENT BEEN EDUCATED REGARDING PAIN, THE RISK FOR PAIN, THE IMPORTANCE OF EFFECTIVE PAIN MANAGEMENT, AND THE PAIN ASSESSMENT PROCESS?YES LATEX QUESTIONNAIRE LATEX ALLERGY : HAVE YOU EVER DEVELOPED ANY TYPE OF REACTION AFTER HANDLING LATEX PRODUCTS SUCH RUBBER GLOVES, CONDOMS, DIAPHRAGMS, BALLOONS, SOCKS, OR UNDERWEAR?NO LATEX ALLERGY : HAVE YOU EVER DEVELOPED ANY TYPE OF REACTION DURING OR AFTER DENTAL APPOINTMENT, VAGINAL/RECTAL EXAMINATION, SURGICAL PROCEDURE, OR ANY OTHER EXPOSURE?NO LATEX RISK : HAVE YOU EVER HAD ANY DIFFICULTY BREATHING OR HIVES AFTER EATING OR HANDLING ANY FRUITS, OR VEGETABLES; SUCH KIWI, BANANAS, STONE FRUITS, OR CHESTNUTSNO LATEX RISK : DO YOU HAVE A PREVIOUS PERSONAL HISTORY OF MORE THAN NINE SURGERIES, SPINA BIFIDA, OR REPEATED CATHERIZATIONS? NO LATEX RISK : ARE YOU FREQUENTLY EXPOSED TO LATEX PRODUCTS IN YOUR OCCUPATION?NO DATE ASKED : 05/03/2019 CAFFEINE CAFFEINE USE?YES HOW OFTEN AND HOW MUCH? COFFEE ADVANCE DIRECTIVE ADVANCE DIRECTIVE DISCUSSED WITH PATIENT:YES HCP - PATEL QUEEN (STEP DAUGHTER) & HANNAH OH (FRIEND), DOCUMENT NOT PROVIDED. CHRISTIAN [id number] CHURCH MARITAL STATUS: . ALCOHOL SCREENING DID YOU HAVE A DRINK CONTAINING ALCOHOL IN THE PAST YEAR?YES HOW OFTEN DID YOU HAVE SIX OR MORE DRINKS ON ONE OCCASION IN THE PAST YEAR?NEVER (0 POINTS) HOW MANY DRINKS DID YOU HAVE ON A TYPICAL DAY WHEN YOU WERE DRINKING IN THE PAST YEAR?1 OR 2 (0 POINTS) HOW OFTEN DID YOU HAVE A DRINK CONTAINING ALCOHOL IN THE PAST YEAR?MONTHLY OR LESS (1 POINT) POINTS1 INTERPRETATIONNEGATIVE OCCUPATION: RETIRED. REVIEWED WITH PATIENT 10/13/18 0928 JSREVIEWED WITH PATIENT 11/01/18 1009 JSREVIEWED WITH PATIENT 03/02/19 1025 [id number] WITH PATIENT 03/20/19 0951 NLJREVIEWED WITH PATIENT 05/17/19 1120 LASREVIEWED WITH PATIENT 06/19/19 0855 NLJREVIEWED WITH PATIENT 07/04/19 1114 JS. HOSPITALIZATION/MAJOR DIAGNOSTIC PROCEDURE SURGERY RELATED CERVICAL FRACTURE REVIEW OF SYSTEMS REVIEWED BY: PROVIDER: KENDALL SAAVEDRA-Dulce . CONSTITUTIONAL: ANY CHANGE IN YOUR MEDICAL CONDITION? NO . CHILLS NO . FEVER NO . INFECTION: DO YOU HAVE NEW INFECTIONS? NO . DO YOU HAVE HISTORY OF MRSA? NO . MUSCULOSKELETAL: ANY NEW PATTERNS OF PAIN OR NUMBNESS? NO . GASTROENTEROLOGY: ANY NEW CHANGE IN BOWEL CONTROL? NO . GENITOURINARY: ANY NEW CHANGE IN BLADDER CONTROL? NO . IS THERE A CHANCE YOU COULD BE ? NO . HEMATOLOGY/LYMPH: DO YOU TAKE ANY BLOOD THINNERS? (FOR EXAMPLE- COUMADIN, PLAVIX, AGGRENOX, PLATEL, PRADAXA, OR XARELTO) NO . WHEN WAS YOUR LAST DOSE? DATE: TIME: . NEUROLOGY: HAVE YOU FALLEN IN THE PAST 12 MONTHS? NO . ANY NEW EXTREMITY NUMBNESS OR WEAKNESS? NO . CARDIOLOGY: DO YOU HAVE A PACEMAKER OR DEFIBRILLATOR? NO . RESPIRATORY: HAVE YOU BEEN SICK IN THE PAST WEEK? NO . FEVER NO . FLU LIKE SYMPTOMS? NO . COUGH NO . INTEGUMENTARY: DO YOU HAVE ANY RASHES OR OPEN SORES? NO . ALLERGIC/IMMUNO: ARE YOU ALLERGIC TO IV DYE? NO . ANY NEW ALLERGIES? NO . PSYCHIATRIC: DO YOU HAVE THOUGHTS OF HURTING YOURSELF OR SOMEONE ELSE? NO . ARE YOU ABUSED, NEGLECTED, OR IN AN UNSAFE ENVIRONMENT? NO . ENDOCRINOLOGY: ARE YOU DIABETIC? NO . OTHER: DO YOU NEED ANY PRESCRIPTIONS? NO . IF YES, PLEASE LIST: ____ . ANY NEW PROBLEMS WITH YOUR MEDICATIONS? NO . WHEN DID YOU LAST EAT? ____ . WHEN DID YOU LAST DRINK? ____ . WHAT DID YOU LAST DRINK? ____ . NAME OF PERSON DRIVING YOU HOME? ____ . DO YOU HAVE ANY OTHER QUESTIONS OR CONCERNS NO . VITAL SIGNS WT 169.4 LBS, HT 62 IN, BMI 30.98 INDEX, BP 146/75 MM HG, HR 87 /MIN, RR 16 /MIN, TEMP 97.5 F, OXYGEN SAT % 96%, SAFE IN ENV? (Y/N) YES, REVIEWED BY: BARBARA. EXAMINATION GENERAL EXAMINATION: GENERALNO ACUTE DISTRESS, WELL NOURISHED AND HYDRATED. PSYCHAPPROPRIATE MOOD AND AFFECT . LUNGS:CLEAR TO AUSCULTATION BILATERALLY, NO WHEEZES, RHONCHI, RALES. HEART:NO MURMURS, REGULAR RATE AND RHYTHM. ASSESSMENTS MYALGIA, OTHER SITE - M79.18 (PRIMARY) TREATMENT MYALGIA, OTHER SITE CLINICAL NOTES: 73-YEAR-OLD FEMALE IN FOR POST TPI FOLLOW-UP. GIVEN PRESENTING SYMPTOMS AND RESULTS OF PHYSICAL EXAMINATION RECOMMENDED FOLLOW-UP IN 3 MONTHS. PATIENT WILL CALL SHOULD HER PAIN SPIKE PRIOR TO THAT APPOINTMENT. PATIENT HAS EXPRESSED UNDERSTANDING OF AND WAS IN AGREEMENT WITH TREATMENT PLAN. GIVEN TIME TO ASK QUESTIONS AND EXPRESS CONCERNS. PROCEDURE CODES FA211 ESTABILISHED PATIENT [facility] CHARGE DISPOSITION & COMMUNICATION FOLLOW UP 3 MONTHS (REASON: THORACIC BACK PAIN) ELECTRONICALLY SIGNED BY KERI YEUNG ON 07/05/2019 AT 01:01 PM EST DISCLAIMER : THIS IS A VISIT SUMMARY EXTRACTED FROM THE [employer] CHART. IT IS NOT A COPY OF THE [employer] PROGRESS NOTE. QING
== END ==
LOC: M PAIN 10:45
PROVIDERS: ATTEND Family Medicine
DX: M79.18 Myalgia, other site (principal); E03.9 Hypothyroidism, unspecified; Z86.59 Personal history of other mental and behavioral disorders; K21.9 Gastro-esophageal reflux disease without esophagitis; Z88.1 Allergy status to other antibiotic agents; Z88.8 Allergy status to other drugs, medicaments and biological substances; Z79.82 Long term (current) use of aspirin; Z79.899 Other long term (current) drug therapy

== ENCOUNTER → 2019-09-10 | Outpatient (CLI) | payer MEDICARE, OTHER ==
[~2019-09-10] MED LIST changes: +BUPIVACAINE HCL 0.25% 30 ML VIAL As Ordered ONE; +ISOVUE-M 300 61% 15ML VIAL (Q9967) As Ordered ONE; +LIDOCAINE 1% SDV INJ 30 ML VIAL As Ordered ONE; -LORA0.5T11 PO; +LORA0.5T5 PO; -SIMV20TA2 PO; +SIMV20TA22 PO; +TRIAMCINOLONE ACETONIDE SUSP 40 MG/ML VIAL (J3301) As Ordered ONE
--- NOTE | 2019-09-10 18:39 | REP ---
C-ARM VIEWS LUMBAR SPINE: CLINICAL HISTORY: Pain. Two C-ARM views of the lumbar spine are performed during injection by Dr. Gorman. Two needles are seen along the lumbar spine and a small amount of contrast is injected. 20 seconds of fluoroscopy time was utilized. Electronically Signed by Sonu Diaz MD 09/12/2019 12:13 P
--- NOTE | 2019-09-21 03:55 | ECWPNPC ---
PATIENT NAME: SANTOSH ARNDT : 1945 GENDER: FEMALE VISIT DATE: 09/10/2019 DISCHARGE DATE: 09/10/19 1048 VISIT LOCKED DATE TIME: PHYSICIAN: SUSANNA FRANCO MD RESOURCE: SUSANNA FRANCO MD REASON FOR APPOINTMENT 1. THORACIC FACET BLOCK T12-L1, L1-L2 HISTORY OF PRESENT ILLNESS HISTORY OF PRESENT ILLNESS: PAIN THE PATIENT DESCRIBES THE PAIN... 73 YEAR OLD FEMALE PATIENT WITH A HISTORY OF CHRONIC LEFT CHEST WALL PAIN. THE PATIENT DESCRIBES THE PAIN ACHING, SHARP, SORE, AND DAILY WITH A PAIN SCORE OF 6-9/10 DEPENDING ON PHYSICAL ACTIVITY. THE PATIENT STATES HER PAIN IS MAINLY IN HER LEFT UPPER THORACIC AREA. THE PATIENT SAYS HER PAIN IS AFFECTING HER ABILITY TO PERFORM HER DAILY ACTIVITIES SUCH MOVING AROUND, CLEANING HER HOME, AND GROCERY SHOPPING. PATIENT DENIES UNEXPLAINABLE WEIGHT LOSS, FEVER, CHILLS, NEW CHANGES ON HER URINARY OR BOWEL CONTROL. FALL RISK SCREENING: SCREENING :NO FALLS REPORTED IN THE LAST YEAR CURRENT MEDICATIONS TAKING LEXAPRO 10 MG TABLET 1 TABLET ORALLY ONCE A DAY, NOTES: 09/10/2019 07 TAKING LEVOTHYROXINE SODIUM 50 MCG TABLET 1 TABLET ON AN EMPTY STOMACH IN THE MORNING ORALLY ONCE A DAY, NOTES: 09/10/2019699 TAKING OMEPRAZOLE 20 MG CAPSULE DELAYED RELEASE 1 CAPSULE ORALLY ONCE A DAY, NOTES: 09/10/2019699 TAKING ASA 2 81 MG TABS ORAL , NOTES: 09/08/20191999 TAKING ZYRTEC ALLERGY 10 MG TABLET 1 TABLET NEEDED ORALLY ONCE A DAY, NOTES: 09/08/2019 TAKING FLONASE ALLERGY RELIEF 50 MCG/ACT SUSPENSION 1 SPRAY IN EACH NOSTRIL NASALLY ONCE A DAY, NOTES: 09/08/2019 TAKING ADVAIR DISKUS 250-50 MCG/DOSE AEROSOL POWDER BREATH ACTIVATED 1 PUFF INHALATION TWICE A DAY, NOTES: 09/08/20191999 TAKING TRAMADOL HCL 50 MG TABLET 2 TABLETS ORALLY EVERY 6 HRS NEEDED, NOTES: 09/09/20192099 TAKING TENS THERAPY PAIN RELIEF - DEVICE TAKING ROSUVASTATIN CALCIUM 5 MG TABLET 1 TABLET ORALLY ONCE A DAY, NOTES: 09/09/20192099 TAKING CYCLOBENZAPRINE HCL 5 MG TABLET 1 TABLET NEEDED ORALLY THREE TIMES A DAY TAKING RANITIDINE HCL 300 MG CAPSULE 1 CAPSULE ORALLY ONCE A DAY NOT-TAKING GABAPENTIN 100 MG CAPSULE 1 CAPSULE ORALLY TWICE A DAY NOT-TAKING SIMVASTATIN 20 MG TABLET 1 TABLET IN THE EVENING ORALLY ONCE A DAY MEDICATION LIST REVIEWED AND RECONCILED WITH THE PATIENT PAST MEDICAL HISTORY CHRONIC BACK PAIN DDD HYPOTHYROIDISM ALLERGIES ELEVATED CHOLESTEROL DEPRESSION GERD OSTEOARTHRITIS ANXIETY ALLERGIES CLARITHROMYCIN: ANAPHYLAXIS - ALLERGY SPORANOX: HIVES - ALLERGY SURGICAL HISTORY HYSTERECTOMY GALLBLADDER REMOVAL BILATERAL TORN MENISCUS FUSION OF CERVIAL NECK SINUS SURGERY X3 FAMILY HISTORY FATHER: MOTHER: DAUGHTER(S): , DIAGNOSED WITH OTHER MALIGNANT NEOPLASM OF UNSPECIFIED SITE 1DAUGHTER(S) . DAUGHTER PASSED FROM CANCER OF THE BILE DUCTS 2 YRS AGO. PATIENT HAS KIDNEY STONES AND PATIENT IS ADOPTED. SOCIAL HISTORY GENERAL: TOBACCO USE ARE YOU A:NONSMOKER EDUCATION LEVEL OF EDUCATION:FINISHED COLLEGE DIET: REGULAR. LANGUAGE LANGUAGES SPOKEN:TELUGU RECREATIONAL DRUG USE DRUG USE?NO LEARNING BARRIERS / SPECIAL NEEDS BARRIERS TO LEARNING?NO HEARING IMPAIRED?YES :HEARING AIDES BILATERAL HEARING AIDES VISION IMPAIRED?NO COGNITIVELY IMPAIRED?NO READINESS TO LEARN?YES LEARNING PREFERENCES?YES :HANDOUTS, DEMONSTRATION/VERBAL INSTRUCTION LEARNING CAPABILITIES PRESENT?YES EMOTIONAL BARRIERS?NO SPECIAL DEVICES?NO SANITARY PLUMBER NEEDED?NO PAIN CLINIC PFS, CLERGY, PUBLIC HEALTH REFERRALS WAS THE PROVIDER NOTIFIED OF ANY PERTINENT INFO?YES HAS THE PATIENT BEEN EDUCATED REGARDING HIS/HER PLAN OF CARE?YES HAS THE PATIENT BEEN EDUCATED REGARDING PAIN, THE RISK FOR PAIN, THE IMPORTANCE OF EFFECTIVE PAIN MANAGEMENT, AND THE PAIN ASSESSMENT PROCESS?YES LATEX QUESTIONNAIRE LATEX ALLERGY : HAVE YOU EVER DEVELOPED ANY TYPE OF REACTION AFTER HANDLING LATEX PRODUCTS SUCH RUBBER GLOVES, CONDOMS, DIAPHRAGMS, BALLOONS, SOCKS, OR UNDERWEAR?NO LATEX ALLERGY : HAVE YOU EVER DEVELOPED ANY TYPE OF REACTION DURING OR AFTER DENTAL APPOINTMENT, VAGINAL/RECTAL EXAMINATION, SURGICAL PROCEDURE, OR ANY OTHER EXPOSURE?NO LATEX RISK : HAVE YOU EVER HAD ANY DIFFICULTY BREATHING OR HIVES AFTER EATING OR HANDLING ANY FRUITS, OR VEGETABLES; SUCH KIWI, BANANAS, STONE FRUITS, OR CHESTNUTSNO LATEX RISK : DO YOU HAVE A PREVIOUS PERSONAL HISTORY OF MORE THAN NINE SURGERIES, SPINA BIFIDA, OR REPEATED CATHERIZATIONS? NO LATEX RISK : ARE YOU FREQUENTLY EXPOSED TO LATEX PRODUCTS IN YOUR OCCUPATION?NO DATE ASKED : 05/03/2019 CAFFEINE CAFFEINE USE?YES HOW OFTEN AND HOW MUCH? COFFEE ADVANCE DIRECTIVE ADVANCE DIRECTIVE DISCUSSED WITH PATIENT:YES HCP - PATEL QUEEN (STEP DAUGHTER) & HANNAH OH (FRIEND), DOCUMENT NOT PROVIDED. QUAKER [id number] CHRISTIAN MARITAL STATUS: . ALCOHOL SCREENING DID YOU HAVE A DRINK CONTAINING ALCOHOL IN THE PAST YEAR?YES HOW OFTEN DID YOU HAVE SIX OR MORE DRINKS ON ONE OCCASION IN THE PAST YEAR?NEVER (0 POINTS) HOW MANY DRINKS DID YOU HAVE ON A TYPICAL DAY WHEN YOU WERE DRINKING IN THE PAST YEAR?1 OR 2 (0 POINTS) HOW OFTEN DID YOU HAVE A DRINK CONTAINING ALCOHOL IN THE PAST YEAR?MONTHLY OR LESS (1 POINT) POINTS1 INTERPRETATIONNEGATIVE OCCUPATION: RETIRED. REVIEWED WITH PATIENT 10/13/18 0928 JSREVIEWED WITH PATIENT 11/01/18 1009 JSREVIEWED WITH PATIENT 03/02/19 1025 [id number] WITH PATIENT 03/20/19 0951 NLJREVIEWED WITH PATIENT 05/17/19 1120 LASPRE PROCEDURE PHONE INTERVIEW 09/07/2019 LASREVIEWED WITH PATIENT 06/19/19 0855 NLJREVIEWED WITH PATIENT 07/04/19 1114 JSREVIEWED WITH PATIENT 07/25/19 1123 NLJ. HOSPITALIZATION/MAJOR DIAGNOSTIC PROCEDURE SURGERY RELATED CERVICAL FRACTURE REVIEW OF SYSTEMS REVIEWED BY: PROVIDER: SUSANNA FRANCO MD . CONSTITUTIONAL: ANY CHANGE IN YOUR MEDICAL CONDITION? NO . CHILLS NO . FEVER NO . INFECTION: DO YOU HAVE NEW INFECTIONS? NO . DO YOU HAVE HISTORY OF MRSA? NO . MUSCULOSKELETAL: ANY NEW PATTERNS OF PAIN OR NUMBNESS? NO . GASTROENTEROLOGY: ANY NEW CHANGE IN BOWEL CONTROL? NO . GENITOURINARY: ANY NEW CHANGE IN BLADDER CONTROL? NO . IS THERE A CHANCE YOU COULD BE ? NO . HEMATOLOGY/LYMPH: DO YOU TAKE ANY BLOOD THINNERS? (FOR EXAMPLE- COUMADIN, PLAVIX, AGGRENOX, PLATEL, PRADAXA, OR XARELTO) NO . WHEN WAS YOUR LAST DOSE? DATE: TIME: . NEUROLOGY: HAVE YOU FALLEN IN THE PAST 12 MONTHS? NO . ANY NEW EXTREMITY NUMBNESS OR WEAKNESS? NO . CARDIOLOGY: DO YOU HAVE A PACEMAKER OR DEFIBRILLATOR? NO . RESPIRATORY: HAVE YOU BEEN SICK IN THE PAST WEEK? NO . FEVER NO . FLU LIKE SYMPTOMS? NO . COUGH NO . INTEGUMENTARY: DO YOU HAVE ANY RASHES OR OPEN SORES? NO . ALLERGIC/IMMUNO: ARE YOU ALLERGIC TO IV DYE? NO . ANY NEW ALLERGIES? NO . PSYCHIATRIC: DO YOU HAVE THOUGHTS OF HURTING YOURSELF OR SOMEONE ELSE? NO . ARE YOU ABUSED, NEGLECTED, OR IN AN UNSAFE ENVIRONMENT? NO . ENDOCRINOLOGY: ARE YOU DIABETIC? NO . OTHER: DO YOU NEED ANY PRESCRIPTIONS? NO . IF YES, PLEASE LIST: ____ . ANY NEW PROBLEMS WITH YOUR MEDICATIONS? NO . WHEN DID YOU LAST EAT? ____09/09/2019 1700 . WHEN DID YOU LAST DRINK? ____09/10/2019 0700 . WHAT DID YOU LAST DRINK? ____WATER . NAME OF PERSON DRIVING YOU HOME? ____MABEL . DO YOU HAVE ANY OTHER QUESTIONS OR CONCERNS NO . VITAL SIGNS WT 170.8 LBS, HT 62 IN, BMI 31.24 INDEX, BP 140/72 MM HG, HR 104 /MIN, RR 16 /MIN, TEMP 96.0 F, OXYGEN SAT % 93%, SAFE IN ENV? (Y/N) YES, NA INITIALS AW 0905, REVIEWED BY: NGOC. EXAMINATION GENERAL EXAMINATION: PATIENT IS ALERT O X 3 AND COOPERATIVE. PAIN INCREASES OVER THE THORACIC FACET JOINTS WITH EXTENSION AND LATERAL ROTATION OF THE BACK. MRI OF THE THORACIC SPINE DONE ON 12/30/2017 SHOWS FACET ARTHROPATHY CHANGES. MRI OF THE LUMBAR SPINE DONE ON 12/30/2017 SHOWS FACET ARTHROPATHY CHANGES. 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 ARNDT' PAIN MANAGEMENT CASE. DUE TO LUMBAR SPONDYLOSIS AND ACUTE PAIN OVER THE LAST MONTH, I WOULD LIKE TO MOVE FORWARD WITH A THERAPEUTIC LUMBAR FACET BLOCK AT THIS TIME. I WILL CHECK UNDER X-RAY, AND DEPENDING ON WHERE THE MAIN PAIN IS LOCATED, I WILL INJECT THE FACETS. WE DISCUSSED THE BENEFITS, RISKS, AND ALTERNATIVES OF THE INJECTION AND THE PATIENT WOULD LIKE TO PROCEED. THE PATIENT WILL FOLLOW UP IN SEVERAL WEEKS TO SEE HOW THE INJECTION IS HELPING WITH HER PAIN. INSTRUCTIONS WERE GIVEN, QUESTIONS WERE ANSWERED, PATIENT REPORTS UNDERSTANDING AND AGREES WITH THE PLAN. I, MEREDITH RM, DOCUMENTED THE ABOVE INFORMATION ACTING A SCRIBE FOR DR. FRANCO. I HAVE REVIEWED THE ABOVE DOCUMENT, WRITTEN BY MEREDITH MURRAY AND I VERIFY THAT IT IS ACCURATE. . SPONDYLOSIS OF LUMBAR REGION WITHOUT MYELOPATHY OR RADICULOPATHY SMC FACET BLOCK (PAIN)[id number] PROCEDURES PN LUMBAR FACET BLOCK THERAPEUTIC PRE PROCEDURE DIAGNOSIS LUMBAR SPONDYLOSIS POST PROCEDURE DIAGNOSIS LUMBAR SPONDYLOSIS PROCEDURE LEFT T12-L1 AND LEFT L1-L2 LUMBAR FACET THERAPEUTIC BLOCK SURGEON DR. SUSANNA FRANCO TELEVISION MAINTENANCE MAN NONE ANESTHESIA LOCAL PRE PROCEDURE NOTE THE PATIENT HAS A HISTORY OF CHRONIC LOW BACK PAIN. I EVALUATED THE PATIENT AND REVIEWED THE CHART. I WENT OVER THE RISKS, ALTERNATIVES AND BENEFITS ASSOCIATED WITH THIS PROCEDURE. THE PATIENT WOULD LIKE TO PROCEED AND GAVE CONSENT TO PERFORM THE PROCEDURE. THE PATIENT DENIES UNEXPLAINABLE WEIGHT LOSS, FEVER, CHILLS, OR NEW CHANGES IN URINARY OR BOWEL CONTROL DESCRIPTION OF PROCEDURE THE PATIENT WAS BROUGHT TO THE PROCEDURE ROOM AND PLACED IN THE PRONE POSITION. THE LUMBOSACRAL AREA WAS CLEANED WITH CHLORAPREP SOLUTION AND DRAPED ASEPTICALLY. THE PROCEDURE WAS DONE UNDER STERILE CONDITIONS. I CHECKED LATERALITY AND THE LEVEL WHERE THE PROCEDURE WAS GOING TO BE PERFORMED WITH THE PATIENT AND THE SUPPORTING STAFF AT THE MOMENT OF THE TIMEOUT IN THE PROCEDURE ROOM. UNDER FLUOROSCOPIC GUIDANCE, THE TARGET POINT WAS SELECTED AT THE LEFT T12-L1 AND LEFT L1-L2 FACET JOINTS. TARGET POINTS WERE SELECTED AFTER LATERAL ROTATION AND TILT OF THE MAGNIFIER OF THE C-ARM. LIDOCAINE 0.5% WAS USED TO NUMB THE SKIN AND THE SUBCUTANEOUS TISSUE BELOW IT. SPINAL NEEDLES, 22-GAUGE, WERE ADVANCED UNDER FLUOROSCOPIC GUIDANCE AND FOLLOWING PATIENT FEEDBACK UNTIL THE TARGETS WERE TOUCHED. THE POSITION OF THE NEEDLES WAS VERIFIED WITH AP AND LATERAL VIEWS. AFTER PROPER POSITION OF THE NEEDLES WAS ACHIEVED, ISOVUE-M DYE 30% 0.1 ML WAS INJECTED SHOWING ADEQUATE SPREAD OF THE DYE. THEN A SOLUTION OF 1.9 ML OF BUPIVACAINE 0.125% OF KENALOG 10 MG WAS INJECTED AT EACH SITE. THERE WAS NO EVIDENCE OF BLOOD, PARESTHESIA OR CEREBROSPINAL FLUID DURING THE PROCEDURE. THE PATIENT WAS SENT TO THE RECOVERY ROOM. THE PATIENT WAS MOVING THE EXTREMITIES AND DOING WELL. THERE WAS NO COMPLICATION DURING THE PROCEDURE. FLUOROSCOPY TIME WAS 20 SECONDS POST PROCEDURE NOTE THE PATIENT WILL BE SEEN IN A FOLLOWUP IN THE NEXT FEW WEEKS. I AM LOOKING FOR LONG-LASTING PAIN RELIEF WITH THIS INTERVENTION. INSTRUCTIONS WERE GIVEN, QUESTIONS WERE ANSWERED, AND THE PATIENT EXPRESSED UNDERSTANDING AND AGREES WITH THE PLAN. I, ARIELLE DAS, DOCUMENTED THE ABOVE INFORMATION ACTING A SCRIBE FOR DR. FRANCO. I HAVE REVIEWED THE ABOVE DOCUMENT, WRITTEN BY TERRI PARMAR, AND I VERIFY THAT IT IS ACCURATE PROCEDURE CODES 22116 INJ PARAVERT F JNT L/S 1 LEV, [place]IF[place]: [place] [address]39 INJ PARAVERT F JNT L/S 2 LEV, MODIFIERS: LT 6045F RADXPS IN END [id number] PXD DISPOSITION & COMMUNICATION FOLLOW UP 3 WEEKS ELECTRONICALLY SIGNED BY SUSANNA FRANCO MD, MD ON 09/20/2019 AT 05:17 PM EST DISCLAIMER : THIS IS A VISIT SUMMARY EXTRACTED FROM THE [employer] CHART. IT IS NOT A COPY OF THE [employer] PROGRESS NOTE. MTDGerson
== END ==
LOC: M PAIN 09:00
PROVIDERS: ATTEND Anesthesiology
DX: M47.815 Spondylosis without myelopathy or radiculopathy, thoracolumbar region (principal); M47.814 Spondylosis without myelopathy or radiculopathy, thoracic region; M47.816 Spondylosis without myelopathy or radiculopathy, lumbar region; G89.29 Other chronic pain; E03.9 Hypothyroidism, unspecified; Z86.59 Personal history of other mental and behavioral disorders; K21.9 Gastro-esophageal reflux disease without esophagitis; Z88.1 Allergy status to other antibiotic agents; Z88.8 Allergy status to other drugs, medicaments and biological substances; Z79.82 Long term (current) use of aspirin; Z79.899 Other long term (current) drug therapy
CPT/HCPCS: 64493; 64494; J3301; Q9967

== ENCOUNTER → 2019-09-11 | Outpatient (CLI) | payer MEDICARE, BC, OTHER ==
[~2019-09-11] MED LIST changes: -BUPIVACAINE HCL 0.25% 30 ML VIAL As Ordered ONE; -ISOVUE-M 300 61% 15ML VIAL (Q9967) As Ordered ONE; -LIDOCAINE 1% SDV INJ 30 ML VIAL As Ordered ONE; -TRIAMCINOLONE ACETONIDE SUSP 40 MG/ML VIAL (J3301) As Ordered ONE
== END ==
LOC: M PT 11:25
PROVIDERS: ATTEND Orthopaedic Surgery
DX: Z96.652 Presence of left artificial knee joint (principal)

== ENCOUNTER → 2019-09-24 | Outpatient (CLI) | payer MEDICARE, OTHER ==
--- NOTE | 2019-09-26 04:07 | ECWPNPC ---
PATIENT NAME: SANTOSH ARNDT : 1945 GENDER: FEMALE VISIT DATE: 09/24/2019 DISCHARGE DATE: 09/24/19 1050 VISIT LOCKED DATE TIME: PHYSICIAN: BAN GREENFIELD RESOURCE: BAN GREENFIELD REASON FOR APPOINTMENT 1. POST PROCEDURE HISTORY OF PRESENT ILLNESS HISTORY OF PRESENT ILLNESS: PAIN THE PATIENT DESCRIBES THE PAIN... 73-YEAR-OLD FEMALE IN FOR POST FACET BLOCK FOLLOW-UP. SHE RATES HER PAIN PREPROCEDURE AT A 7 OUT OF 10 AND POSTPROCEDURE AT A 2 OUT OF 10 AND STATES THIS LASTED FOR APPROXIMATELY 3 DAYS. SHE RATES HER PAIN CURRENTLY AT A 2 OUT OF 10 AND DESCRIBES IT SHARP AND STABBING FURTHER STATING THAT HER PAIN INCREASE IS DEPENDENT UPON ACTIVITY. FALL RISK SCREENING: SCREENING :NO FALLS REPORTED IN THE LAST YEAR CURRENT MEDICATIONS TAKING LEXAPRO 10 MG TABLET 1 TABLET ORALLY ONCE A DAY TAKING LEVOTHYROXINE SODIUM 50 MCG TABLET 1 TABLET ON AN EMPTY STOMACH IN THE MORNING ORALLY ONCE A DAY TAKING OMEPRAZOLE 20 MG CAPSULE DELAYED RELEASE 1 CAPSULE ORALLY ONCE A DAY TAKING ASA 2 81 MG TABS ORAL TAKING ZYRTEC ALLERGY 10 MG TABLET 1 TABLET NEEDED ORALLY ONCE A DAY TAKING FLONASE ALLERGY RELIEF 50 MCG/ACT SUSPENSION 1 SPRAY IN EACH NOSTRIL NASALLY ONCE A DAY TAKING ADVAIR DISKUS 250-50 MCG/DOSE AEROSOL POWDER BREATH ACTIVATED 1 PUFF INHALATION TWICE A DAY NEEDED TAKING TRAMADOL HCL 50 MG TABLET 2 TABLETS ORALLY EVERY 6 HRS NEEDED TAKING TENS THERAPY PAIN RELIEF - DEVICE TAKING ROSUVASTATIN CALCIUM 5 MG TABLET 1 TABLET ORALLY ONCE A DAY TAKING CYCLOBENZAPRINE HCL 5 MG TABLET 1 TABLET NEEDED ORALLY THREE TIMES A DAY TAKING RANITIDINE HCL 300 MG CAPSULE 1 CAPSULE ORALLY ONCE A DAY NOT-TAKING GABAPENTIN 100 MG CAPSULE 1 CAPSULE ORALLY TWICE A DAY NOT-TAKING SIMVASTATIN 20 MG TABLET 1 TABLET IN THE EVENING ORALLY ONCE A DAY MEDICATION LIST REVIEWED AND RECONCILED WITH THE PATIENT PAST MEDICAL HISTORY CHRONIC BACK PAIN DDD HYPOTHYROIDISM ALLERGIES ELEVATED CHOLESTEROL DEPRESSION GERD OSTEOARTHRITIS ANXIETY ALLERGIES CLARITHROMYCIN: ANAPHYLAXIS - ALLERGY SPORANOX: HIVES - ALLERGY SURGICAL HISTORY HYSTERECTOMY GALLBLADDER REMOVAL BILATERAL TORN MENISCUS FUSION OF CERVIAL NECK SINUS SURGERY X3 FAMILY HISTORY FATHER: MOTHER: DAUGHTER(S): , DIAGNOSED WITH OTHER MALIGNANT NEOPLASM OF UNSPECIFIED SITE 1DAUGHTER(S) . DAUGHTER PASSED FROM CANCER OF THE BILE DUCTS 2 YRS AGO. PATIENT HAS KIDNEY STONES AND PATIENT IS ADOPTED. SOCIAL HISTORY GENERAL: TOBACCO USE ARE YOU A:NONSMOKER EDUCATION LEVEL OF EDUCATION:FINISHED COLLEGE DIET: REGULAR. LANGUAGE LANGUAGES SPOKEN:AZERI RECREATIONAL DRUG USE DRUG USE?NO LEARNING BARRIERS / SPECIAL NEEDS BARRIERS TO LEARNING?NO HEARING IMPAIRED?YES VISION IMPAIRED?NO COGNITIVELY IMPAIRED?NO :HEARING AIDES BILATERAL HEARING AIDES READINESS TO LEARN?YES LEARNING PREFERENCES?YES :HANDOUTS, DEMONSTRATION/VERBAL INSTRUCTION LEARNING CAPABILITIES PRESENT?YES EMOTIONAL BARRIERS?NO SPECIAL DEVICES?NO KINESIOTHERAPIST NEEDED?NO PAIN CLINIC PFS, CLERGY, PUBLIC HEALTH REFERRALS WAS THE PROVIDER NOTIFIED OF ANY PERTINENT INFO?YES HAS THE PATIENT BEEN EDUCATED REGARDING HIS/HER PLAN OF CARE?YES HAS THE PATIENT BEEN EDUCATED REGARDING PAIN, THE RISK FOR PAIN, THE IMPORTANCE OF EFFECTIVE PAIN MANAGEMENT, AND THE PAIN ASSESSMENT PROCESS?YES LATEX QUESTIONNAIRE LATEX ALLERGY : HAVE YOU EVER DEVELOPED ANY TYPE OF REACTION AFTER HANDLING LATEX PRODUCTS SUCH RUBBER GLOVES, CONDOMS, DIAPHRAGMS, BALLOONS, SOCKS, OR UNDERWEAR?NO LATEX ALLERGY : HAVE YOU EVER DEVELOPED ANY TYPE OF REACTION DURING OR AFTER DENTAL APPOINTMENT, VAGINAL/RECTAL EXAMINATION, SURGICAL PROCEDURE, OR ANY OTHER EXPOSURE?NO DATE ASKED : 05/03/2019 LATEX RISK : HAVE YOU EVER HAD ANY DIFFICULTY BREATHING OR HIVES AFTER EATING OR HANDLING ANY FRUITS, OR VEGETABLES; SUCH KIWI, BANANAS, STONE FRUITS, OR CHESTNUTSNO LATEX RISK : DO YOU HAVE A PREVIOUS PERSONAL HISTORY OF MORE THAN NINE SURGERIES, SPINA BIFIDA, OR REPEATED CATHERIZATIONS? NO LATEX RISK : ARE YOU FREQUENTLY EXPOSED TO LATEX PRODUCTS IN YOUR OCCUPATION?NO CAFFEINE CAFFEINE USE?YES HOW OFTEN AND HOW MUCH? COFFEE ADVANCE DIRECTIVE ADVANCE DIRECTIVE DISCUSSED WITH PATIENT:YES HCP - PATEL QUEEN (STEP DAUGHTER) & HANNAH OH (FRIEND), DOCUMENT NOT PROVIDED. MUSLIM [id number] CAODAISM MARITAL STATUS: . ALCOHOL SCREENING DID YOU HAVE A DRINK CONTAINING ALCOHOL IN THE PAST YEAR?YES HOW OFTEN DID YOU HAVE SIX OR MORE DRINKS ON ONE OCCASION IN THE PAST YEAR?NEVER (0 POINTS) HOW MANY DRINKS DID YOU HAVE ON A TYPICAL DAY WHEN YOU WERE DRINKING IN THE PAST YEAR?1 OR 2 (0 POINTS) HOW OFTEN DID YOU HAVE A DRINK CONTAINING ALCOHOL IN THE PAST YEAR?MONTHLY OR LESS (1 POINT) POINTS1 INTERPRETATIONNEGATIVE OCCUPATION: RETIRED. REVIEWED WITH PATIENT 10/13/18 0977 JSREVIEWED WITH PATIENT 11/01/18 1009 JSREVIEWED WITH PATIENT 03/02/19 1025 [id number] WITH PATIENT 03/20/19 0951 NLJREVIEWED WITH PATIENT 05/17/19 1120 LASPRE PROCEDURE PHONE INTERVIEW 09/07/2019 LASREVIEWED WITH PATIENT 06/19/19 0855 NLJREVIEWED WITH PATIENT 07/04/19 1114 JSREVIEWED WITH PATIENT 07/25/19 1123 NLJ. HOSPITALIZATION/MAJOR DIAGNOSTIC PROCEDURE SURGERY RELATED CERVICAL FRACTURE REVIEW OF SYSTEMS REVIEWED BY: PROVIDER: KENDALL GREENFIELD ASSOCIATE MERCHANDISE PLANNER-Dulce . CONSTITUTIONAL: ANY CHANGE IN YOUR MEDICAL CONDITION? NO . CHILLS NO . FEVER NO . INFECTION: DO YOU HAVE NEW INFECTIONS? NO . DO YOU HAVE HISTORY OF MRSA? NO . MUSCULOSKELETAL: ANY NEW PATTERNS OF PAIN OR NUMBNESS? NO . GASTROENTEROLOGY: ANY NEW CHANGE IN BOWEL CONTROL? NO . GENITOURINARY: ANY NEW CHANGE IN BLADDER CONTROL? NO . IS THERE A CHANCE YOU COULD BE ? NO . HEMATOLOGY/LYMPH: DO YOU TAKE ANY BLOOD THINNERS? (FOR EXAMPLE- COUMADIN, PLAVIX, AGGRENOX, PLATEL, PRADAXA, OR XARELTO) NO . WHEN WAS YOUR LAST DOSE? DATE: TIME: . NEUROLOGY: HAVE YOU FALLEN IN THE PAST 12 MONTHS? NO . ANY NEW EXTREMITY NUMBNESS OR WEAKNESS? NO . CARDIOLOGY: DO YOU HAVE A PACEMAKER OR DEFIBRILLATOR? NO . RESPIRATORY: HAVE YOU BEEN SICK IN THE PAST WEEK? NO . FEVER NO . FLU LIKE SYMPTOMS? NO . COUGH NO . INTEGUMENTARY: DO YOU HAVE ANY RASHES OR OPEN SORES? NO . ALLERGIC/IMMUNO: ARE YOU ALLERGIC TO IV DYE? NO . ANY NEW ALLERGIES? NO . PSYCHIATRIC: DO YOU HAVE THOUGHTS OF HURTING YOURSELF OR SOMEONE ELSE? NO . ARE YOU ABUSED, NEGLECTED, OR IN AN UNSAFE ENVIRONMENT? NO . ENDOCRINOLOGY: ARE YOU DIABETIC? NO . OTHER: DO YOU NEED ANY PRESCRIPTIONS? NO . IF YES, PLEASE LIST: ____ . ANY NEW PROBLEMS WITH YOUR MEDICATIONS? NO . WHEN DID YOU LAST EAT? ____ . WHEN DID YOU LAST DRINK? ____ . WHAT DID YOU LAST DRINK? ____ . NAME OF PERSON DRIVING YOU HOME? ____ . DO YOU HAVE ANY OTHER QUESTIONS OR CONCERNS NO . VITAL SIGNS WT 170.4 LBS, HT 62 IN, BMI 31.16 INDEX, BP 142/69 MM HG, HR 78 /MIN, RR 16 /MIN, TEMP 97.2 F, OXYGEN SAT % 94%, NA INITIALS AW 1026, REVIEWED BY: ANNIA. EXAMINATION GENERAL EXAMINATION: GENERALNO ACUTE DISTRESS, WELL NOURISHED AND HYDRATED. PSYCHAPPROPRIATE MOOD AND AFFECT . LUNGS:CLEAR TO AUSCULTATION BILATERALLY, NO WHEEZES, RHONCHI, RALES. HEART:NO MURMURS, REGULAR RATE AND RHYTHM. ASSESSMENTS SPONDYLOSIS OF THORACIC REGION WITHOUT MYELOPATHY OR RADICULOPATHY - M47.814 (PRIMARY) TREATMENT SPONDYLOSIS OF THORACIC REGION WITHOUT MYELOPATHY OR RADICULOPATHY CLINICAL NOTES: 73-YEAR-OLD FEMALE IN FOR POST FACET BLOCK FOLLOW-UP. GIVEN PRESENTING SYMPTOMS AND RESULTS OF PHYSICAL EXAMINATION RECOMMEND FOLLOW-UP IN ONE MONTH. PATIENT HAS EXPRESSED UNDERSTANDING OF AND WAS IN AGREEMENT WITH TREATMENT PLAN. GIVEN TIME TO ASK QUESTIONS AND EXPRESS CONCERNS. PROCEDURE CODES FA211 ESTABILISHED [facility]IENT [facility] CHAR[facility] DISPOSITION & COMMUNICATION FOLLOW UP 4 WEEKS (REASON: THORACIC PAIN) ELECTRONICALLY SIGNED BY KERI YEUNG ON 09/25/2019 AT 08:08 AM EST DISCLAIMER : THIS IS A VISIT SUMMARY EXTRACTED FROM THE [employer] CHART. IT IS NOT A COPY OF THE [employer] PROGRESS NOTE. QING
== END ==
LOC: M PAIN 10:00
PROVIDERS: ATTEND Family Medicine
DX: M47.814 Spondylosis without myelopathy or radiculopathy, thoracic region (principal); E03.9 Hypothyroidism, unspecified; Z86.59 Personal history of other mental and behavioral disorders; K21.9 Gastro-esophageal reflux disease without esophagitis; Z88.1 Allergy status to other antibiotic agents; Z88.8 Allergy status to other drugs, medicaments and biological substances; Z79.82 Long term (current) use of aspirin; Z79.899 Other long term (current) drug therapy

== ENCOUNTER → 2019-09-27 | Outpatient (CLI) | payer MEDICARE, OTHER ==
--- NOTE | 2019-09-27 10:13 | REP ---
Clinical: Preoperative assessment. Osteoarthritis . Comparison: 08/09/2012 . Technique: PA and lateral. Findings: The mediastinum and cardiac silhouette are normal. The lung reyna are clear and without acute consolidation, effusion, or pneumothorax. The skeletal structures are intact and normal. Impression: 1. No acute cardiopulmonary process. Electronically Signed by Dada Bowser MD 09/27/2019 10:05 A
--- NOTE | 2019-09-27 10:15 | ECGEPIP ---
[facility] Test Date: 2019-09-27 Pat Name: SANTOSH ARNDT Department: Room: - Gender: Female Analytic Manager: WAYNE : 1945 Requested By: Kaleb Moss Order Number: [id number] Reading MD: Denisa Mas Measurements Intervals [place] Rate: 69 P: 45 [place]: 138 QRS: 16 QRSD: 108 T: 4 QT: 418 QTc: 448 Interpretive Statements SINUS RHYTHM POSSIBLE LEFT ATRIAL ENLARGEMENT INCOMPLETE RIGHT BUNDLE BRANCH BLOCK ST ABN SIMILAR TO 09/11/17 Electronically Signed on 09-27-2019 10:15:21 EST by Denisa Mas
[2019-09-27 10:20] LABS: HEMATOCRIT 45.4 % (36.0-47.0); HEMOGLOBIN 14.5 g/dl (12.0-15.5); MEAN CORPUSCULAR HEMOGLOBIN 28.5 pg (27.0-33.0); MEAN CORPUSCULAR HGB CONC 31.9 g/dl (32.0-36.5); MEAN CORPUSCULAR VOLUME 89.2 fl (80.0-96.0); PLATELET COUNT, AUTOMATED 305 10^3/uL (150-450); RED BLOOD COUNT 5.09 10^6/uL (4.00-5.40); WHITE BLOOD COUNT 8.2 10^3/uL (4.0-10.0)
[2019-09-27 10:36] LABS: INR 0.99; PROTHROMBIN TIME 12.8 SECONDS (11.8-14.0)
[2019-09-27 10:46] LABS: ERYTHROCYTE SEDIMENTATION RATE 18 mm/hr (0-30)
[2019-09-27 10:52] LABS: ALBUMIN 3.8 GM/DL (3.2-5.2); BILIRUBIN,TOTAL 0.6 MG/DL (0.2-1.0); CALCIUM LEVEL 9.3 MG/DL (8.8-10.2); CREATININE FOR GFR 1.15 MG/DL (0.55-1.30); GLOMERULAR FILTRATION RATE 49.1 (>39); POTASSIUM SERUM 4.4 MEQ/L (3.5-5.1); TOTAL PROTEIN 6.9 GM/DL (6.4-8.2)
== END ==
LOC: M LAB 09:18
PROVIDERS: ATTEND Orthopaedic Surgery
DX: Z01.818 Encounter for other preprocedural examination (principal); M17.12 Unilateral primary osteoarthritis, left knee; J98.4 Other disorders of lung; E07.9 Disorder of thyroid, unspecified; Z88.1 Allergy status to other antibiotic agents; Z88.8 Allergy status to other drugs, medicaments and biological substances

== ENCOUNTER → 2019-10-17 | Outpatient (REF) | payer MEDICARE, OTHER ==
[~2019-10-17] MED LIST changes: +ASPI81TA85 PO; +CRES5TAB PO; +OMEP40CA97 PO
== END ==
LOC: M LAB REF 13:25
PROVIDERS: ATTEND Internal Medicine
DX: M79.662 Pain in left lower leg (principal)

== ENCOUNTER → 2019-10-18 | Outpatient (CLI) | payer MEDICARE, BC, OTHER ==
[~2019-10-18] MED LIST changes: +ISOVUE-370 76% 100ML VIAL (Q9967) As Ordered ONE
--- NOTE | 2019-10-18 12:33 | REP ---
CT PULMONARY ANGIOGRAM: With IV contrast. HISTORY: Pain in the lower leg. Edema. Rule out pulmonary embolus. COMPARISON STUDIES: Comparison CT pulmonary angiogram September 26, 2015. CONTRAST DOSE: 75 mL of Isovue [address] TECHNIQUE: Helical scanning is acquired and overlapping 1.5 mm and contiguous 3 mm axial images are reformatted. In addition, maximum intensity projection and multiplanar re-formation images are generated in sagittal and coronal imaging projections. CT PULMONARY ANGIOGRAPHIC FINDINGS: There is good opacification of the pulmonary arterial tree. There is a small quantity of filling defect in the pulmonary arterial tree in the right lower lobe consistent with a small right lower lobe pulmonary embolus. No other vessel cutoff or filling defect is appreciated. No large embolus is seen. There is no evidence of aortic aneurysm or dissection. 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 Great vessel origins are otherwise intact. The left common carotid artery is tortuous in the superior mediastinum. No pleural or pericardial effusion is seen. No hilar or mediastinal mass or adenopathy is observed. No extrathoracic mass or adenopathy is observed. Normal adrenal glands are seen. There is a small accessory splenule adjacent to the tail of the pancreas. The visualized upper abdominal structures are otherwise unremarkable. Gallbladder surgically absent. Lung reyna show no evidence of infiltrate or mass. There is a small linear area of fibrosis in the right base. IMPRESSION: There is a small pulmonary embolus to the right lower lobe segmental branches. Otherwise no acute disease. Electronically Signed by Per George MD 10/18/2019 08:04 P
== END ==
LOC: M RAD 11:32
PROVIDERS: ATTEND Internal Medicine
DX: M79.662 Pain in left lower leg (principal); Z86.711 Personal history of pulmonary embolism; R79.82 Elevated C-reactive protein (CRP)
CPT/HCPCS: 71275; 86140; Q9967

== ENCOUNTER → 2019-10-18 | Outpatient (REF) | payer MEDICARE, OTHER ==
[~2019-10-18] MED LIST changes: -ISOVUE-370 76% 100ML VIAL (Q9967) As Ordered ONE
== END ==
LOC: M LAB REF 16:37
PROVIDERS: ATTEND Internal Medicine
DX: M79.662 Pain in left lower leg (principal); R79.82 Elevated C-reactive protein (CRP)

== ENCOUNTER 2019-11-19 09:50 | Emergency (ER) | payer MEDICARE, BC, OTHER ==
[~2019-11-19] VITALS: Ht 157.5 cm; Wt 77.2 kg
[2019-11-19] MEDS ORDERED: BUSP15TA47 (09:59)
[2019-11-19] MEDS ORDERED: XARE20TA (09:59)
[2019-11-19] MEDS ORDERED: TIZA4TAB4 (09:59)
[2019-11-19 10:25] LABS: BASO # 0.1 10^3/uL (0.0-0.2); BASO % 1.4 % (0.0-1.0); EOS # 0.6 10^3/uL (0.0-0.5); EOS % 7.2 % (0.0-3.0); HEMATOCRIT 44.8 % (36.0-47.0); HEMOGLOBIN 14.3 g/dl (12.0-15.5); LYMPH # 1.2 10^3/uL (1.5-5.0); LYMPH % 13.8 % (24.0-44.0); MEAN CORPUSCULAR HEMOGLOBIN 28.1 pg (27.0-33.0); MEAN CORPUSCULAR HGB CONC 31.9 g/dl (32.0-36.5); MEAN CORPUSCULAR VOLUME 88.2 fl (80.0-96.0); MONO # 0.6 10^3/uL (0.0-0.8); MONO % 7.6 % (0.0-5.0); NEUTROPHILS # 5.8 10^3/uL (1.5-8.5); NEUTROPHILS % 69.6 % (36.0-66.0); PLATELET COUNT, AUTOMATED 299 10^3/uL (150-450); RED BLOOD COUNT 5.08 10^6/uL (4.00-5.40); WHITE BLOOD COUNT 8.4 10^3/uL (4.0-10.0)
[2019-11-19 10:50] LABS: BLOOD UREA NITROGEN 21 MG/DL (7-18); CARBON DIOXIDE LEVEL 27 MEQ/L (21-32); CHLORIDE LEVEL 108 MEQ/L (98-107); CK-MB VALUE MASS < 1.0 NG/ML (<3.6); CPK CREATINE PHOSPHOKINASE 33 U/L (26-192); CREATININE FOR GFR 1.18 MG/DL (0.55-1.30); GLOMERULAR FILTRATION RATE 47.5 (>39); GLUCOSE, FASTING 144 MG/DL (70-100); MB/CK RELATIVE INDEX 3.03 (< OR =4); POTASSIUM SERUM 3.6 MEQ/L (3.5-5.1); SODIUM LEVEL 141 MEQ/L (136-145); TROPONIN I < 0.02 NG/ML (< 0.10)
[2019-11-19] MEDS ORDERED: ISOVUE-370 76% 100ML VIAL (Q9967) As Ordered ONE (10:52)
[2019-11-19 11:46] VITALS: BP 131/64
--- NOTE | 2019-11-19 12:00 | REP ---
CT ANGIOGRAM OF THE CHEST: TECHNIQUE: Axial contrast enhanced images from the thoracic inlet to the upper abdomen using 100 mL Isovue 370 intravenous contrast material with multiplanar reformations. COMPARISON: 10/18/[address] evidence of pulmonary embolism. The previously noted small embolism in the right lower lobe has resolved. There is no thoracic aortic aneurysm or dissection. The heart is not significantly enlarged. There is no pleural or pericardial effusion. There is no significant mediastinal, hilar, or chest wall lymphadenopathy. Scattered fibroatelectatic changes are seen in both lungs. There are degenerative changes of the spine. There are a couple of mild stable compression deformities of the mid thoracic vertebral bodies. IMPRESSION: Previously noted small pulmonary embolism in the right lower lobe has resolved. No evidence of pulmonary embolism at this time. No acute finding in the lungs. Electronically Signed by Sonu Diaz MD 11/19/2019 03:12 P
--- NOTE | 2019-11-20 08:29 | ECGEPIP ---
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
== END 2019-11-19 11:50 | disposition home or self-care (01) ==
LOC: M ED 09:50
DX: M79.10 Myalgia, unspecified site (principal); D68.51 Activated protein C resistance; I45.10 Unspecified right bundle-branch block; E78.5 Hyperlipidemia, unspecified; J45.909 Unspecified asthma, uncomplicated; M19.90 Unspecified osteoarthritis, unspecified site; Z86.711 Personal history of pulmonary embolism; Z79.01 Long term (current) use of anticoagulants; Z79.899 Other long term (current) drug therapy; Z88.8 Allergy status to other drugs, medicaments and biological substances
CPT/HCPCS: 71275; 80048; 82550; 82553; 84484; 85025; 93005; 93041; 94760; 99284; Q9967

== ENCOUNTER → 2019-12-14 | Outpatient (CLI) | payer MEDICARE, OTHER ==
[~2019-12-14] MED LIST changes: +BUSP15TA47; +TIZA4TAB4; +XARE20TA
--- NOTE | 2019-12-18 03:40 | ECWPNPC ---
PATIENT NAME: SANTOSH ARNDT : 1945 GENDER: FEMALE VISIT DATE: 12/14/2019 DISCHARGE DATE: 12/14/19 1015 VISIT LOCKED DATE TIME: PHYSICIAN: BAN GREENFIELD RESOURCE: BAN GREENFIELD REASON FOR APPOINTMENT 1. 4 WEEK HISTORY OF PRESENT ILLNESS GENERAL: PERMISSION REQUESTED AND RECEIVED FROM PATIENT TO PERFORM TELEPHONE VISIT. 74-YEAR-OLD FEMALE IN FOR CHRONIC PAIN FOLLOW-UP. SHE RATES HER PAIN CURRENTLY AT A 4 OUT OF 10 AND DESCRIBES IT SHARP SHE FURTHER STATES THE PAIN IS INTERMITTENT. SHE DOES ADMITS TO RECENT DIAGNOSES OF PULMONARY EMBOLISM IN OCTOBER AND A NEW THORACIC FRACTURE IN NOVEMBER. PATIENT ALSO HAS A NEW DIAGNOSIS OF FACTOR V LEIDEN SYNDROME AND WAS STARTED ON XARELTO. HISTORY OF PRESENT ILLNESS: PAIN THE PATIENT DESCRIBES THE PAIN... FALL RISK SCREENING: SCREENING :NO FALLS REPORTED IN THE LAST YEAR CURRENT MEDICATIONS TAKING LEXAPRO 10 MG TABLET 1 TABLET ORALLY ONCE A DAY TAKING LEVOTHYROXINE SODIUM 50 MCG TABLET 1 TABLET ON AN EMPTY STOMACH IN THE MORNING ORALLY ONCE A DAY TAKING OMEPRAZOLE 20 MG CAPSULE DELAYED RELEASE 1 CAPSULE ORALLY ONCE A DAY TAKING ZYRTEC ALLERGY 10 MG TABLET 1 TABLET NEEDED ORALLY ONCE A DAY TAKING FLONASE ALLERGY RELIEF 50 MCG/ACT SUSPENSION 1 SPRAY IN EACH NOSTRIL NASALLY ONCE A DAY TAKING ADVAIR DISKUS 250-50 MCG/DOSE AEROSOL POWDER BREATH ACTIVATED 1 PUFF INHALATION TWICE A DAY NEEDED TAKING TRAMADOL HCL 50 MG TABLET 2 TABLETS ORALLY EVERY 6 HRS NEEDED TAKING TENS THERAPY PAIN RELIEF - DEVICE TAKING ROSUVASTATIN CALCIUM 5 MG TABLET 1 TABLET ORALLY ONCE A DAY TAKING CYCLOBENZAPRINE HCL 5 MG TABLET 1 TABLET NEEDED ORALLY THREE TIMES A DAY TAKING RANITIDINE HCL 300 MG CAPSULE 1 CAPSULE ORALLY ONCE A DAY TAKING XARELTO 20 MG TABLET 1 TABLET WITH FOOD ORALLY ONCE A DAY NOT-TAKING ASA 2 81 MG TABS ORAL NOT-TAKING GABAPENTIN 100 MG CAPSULE 1 CAPSULE ORALLY TWICE A DAY NOT-TAKING SIMVASTATIN 20 MG TABLET 1 TABLET IN THE EVENING ORALLY ONCE A DAY MEDICATION LIST REVIEWED AND RECONCILED WITH THE PATIENT PAST MEDICAL HISTORY CHRONIC BACK PAIN DDD HYPOTHYROIDISM ALLERGIES ELEVATED CHOLESTEROL DEPRESSION GERD OSTEOARTHRITIS ANXIETY PULMONARY EMBOLISM FACTOR 5 LIEDEN SYNDROME THORACIC SPINE FRACTURE ALLERGIES CLARITHROMYCIN: ANAPHYLAXIS - ALLERGY SPORANOX: HIVES - ALLERGY SURGICAL HISTORY HYSTERECTOMY GALLBLADDER REMOVAL BILATERAL TORN MENISCUS FUSION OF CERVIAL NECK SINUS SURGERY X3 FAMILY HISTORY FATHER: MOTHER: DAUGHTER(S): , DIAGNOSED WITH OTHER MALIGNANT NEOPLASM OF UNSPECIFIED SITE 1DAUGHTER(S) . DAUGHTER PASSED FROM CANCER OF THE BILE DUCTS 2 YRS AGO. PATIENT HAS KIDNEY STONES AND PATIENT IS ADOPTED. SOCIAL HISTORY GENERAL: TOBACCO USE ARE YOU A:NONSMOKER LATEX QUESTIONNAIRE LATEX ALLERGY : HAVE YOU EVER DEVELOPED ANY TYPE OF REACTION AFTER HANDLING LATEX PRODUCTS SUCH RUBBER GLOVES, CONDOMS, DIAPHRAGMS, BALLOONS, SOCKS, OR UNDERWEAR?NO LATEX ALLERGY : HAVE YOU EVER DEVELOPED ANY TYPE OF REACTION DURING OR AFTER DENTAL APPOINTMENT, VAGINAL/RECTAL EXAMINATION, SURGICAL PROCEDURE, OR ANY OTHER EXPOSURE?NO LATEX RISK : HAVE YOU EVER HAD ANY DIFFICULTY BREATHING OR HIVES AFTER EATING OR HANDLING ANY FRUITS, OR VEGETABLES; SUCH KIWI, BANANAS, STONE FRUITS, OR CHESTNUTSNO LATEX RISK : DO YOU HAVE A PREVIOUS PERSONAL HISTORY OF MORE THAN NINE SURGERIES, SPINA BIFIDA, OR REPEATED CATHERIZATIONS? NO LATEX RISK : ARE YOU FREQUENTLY EXPOSED TO LATEX PRODUCTS IN YOUR OCCUPATION?NO DATE ASKED : 12/14/2019 ALCOHOL SCREENING DID YOU HAVE A DRINK CONTAINING ALCOHOL IN THE PAST YEAR?YES HOW OFTEN DID YOU HAVE SIX OR MORE DRINKS ON ONE OCCASION IN THE PAST YEAR?NEVER (0 POINTS) HOW MANY DRINKS DID YOU HAVE ON A TYPICAL DAY WHEN YOU WERE DRINKING IN THE PAST YEAR?1 OR 2 (0 POINTS) HOW OFTEN DID YOU HAVE A DRINK CONTAINING ALCOHOL IN THE PAST YEAR?MONTHLY OR LESS (1 POINT) POINTS1 INTERPRETATIONNEGATIVE RECREATIONAL DRUG USE DRUG USE?NO CAFFEINE CAFFEINE USE?YES HOW OFTEN AND HOW MUCH? COFFEE CONFUCIANISM [id number] CONFUCIANISM LANGUAGE LANGUAGES SPOKEN:ARMENIAN EDUCATION LEVEL OF EDUCATION:FINISHED COLLEGE LEARNING BARRIERS / SPECIAL NEEDS BARRIERS TO LEARNING?NO HEARING IMPAIRED?YES VISION IMPAIRED?NO COGNITIVELY IMPAIRED?NO :HEARING AIDES BILATERAL HEARING AIDES READINESS TO LEARN?YES LEARNING PREFERENCES?YES :HANDOUTS, DEMONSTRATION/VERBAL INSTRUCTION LEARNING CAPABILITIES PRESENT?YES EMOTIONAL BARRIERS?NO SPECIAL DEVICES?NO COAL TRAMMER NEEDED?NO OCCUPATION: RETIRED. DIET: REGULAR. MARITAL STATUS: . NEW PATIENT PAIN DIARY TODAY'S VISITNOTES 12/14/2019 PATIENT DESCRIBES PAIN :IT COMES AND GOES, SHARP FROM 0-10, WHAT LEVEL IS YOUR PAIN TODAY?4 PAIN CLINIC PFS, CLERGY, PUBLIC HEALTH REFERRALS WAS THE PROVIDER NOTIFIED OF ANY PERTINENT INFO?YES HAS THE PATIENT BEEN EDUCATED REGARDING HIS/HER PLAN OF CARE?YES HAS THE PATIENT BEEN EDUCATED REGARDING PAIN, THE RISK FOR PAIN, THE IMPORTANCE OF EFFECTIVE PAIN MANAGEMENT, AND THE PAIN ASSESSMENT PROCESS?YES ADVANCE DIRECTIVE ADVANCE DIRECTIVE DISCUSSED WITH PATIENT:YES HCP - PATEL QUEEN (STEP DAUGHTER) & HANNAH OH (FRIEND), DOCUMENT NOT PROVIDED. HOSPITALIZATION/MAJOR DIAGNOSTIC PROCEDURE SURGERY RELATED CERVICAL FRACTURE REVIEW OF SYSTEMS REVIEWED BY: PROVIDER: KENDALL GREENFIELD FIXTURE MAKER-C . CONSTITUTIONAL: ANY CHANGE IN YOUR MEDICAL CONDITION? YES, PATIENT DIAGNOSED WITH PE, FACTOR 5 LIEDEN SYNDROME, AND A NEW THORACIC SPINE FRACTURE . CHILLS NO . FEVER NO . INFECTION: DO YOU HAVE NEW INFECTIONS? NO . DO YOU HAVE HISTORY OF MRSA? NO . MUSCULOSKELETAL: ANY NEW PATTERNS OF PAIN OR NUMBNESS? YES, NEW PAIN FROM THE THORACIC SPINE FRACTURE . GASTROENTEROLOGY: ANY NEW CHANGE IN BOWEL CONTROL? NO . GENITOURINARY: ANY NEW CHANGE IN BLADDER CONTROL? NO . IS THERE A CHANCE YOU COULD BE ? NO . HEMATOLOGY/LYMPH: DO YOU TAKE ANY BLOOD THINNERS? (FOR EXAMPLE- COUMADIN, PLAVIX, AGGRENOX, PLATEL, PRADAXA, OR XARELTO) YES, XARELTO . WHEN WAS YOUR LAST DOSE? DATE: 12/13/2019TIME:1800 . NEUROLOGY: HAVE YOU FALLEN IN THE PAST 12 MONTHS? NO . ANY NEW EXTREMITY NUMBNESS OR WEAKNESS? NO . CARDIOLOGY: DO YOU HAVE A PACEMAKER OR DEFIBRILLATOR? NO . RESPIRATORY: HAVE YOU BEEN SICK IN THE PAST WEEK? NO . FEVER NO . FLU LIKE SYMPTOMS? NO . COUGH NO . INTEGUMENTARY: DO YOU HAVE ANY RASHES OR OPEN SORES? NO . ALLERGIC/IMMUNO: ARE YOU ALLERGIC TO IV DYE? NO . ANY NEW ALLERGIES? NO . PSYCHIATRIC: DO YOU HAVE THOUGHTS OF HURTING YOURSELF OR SOMEONE ELSE? NO . ARE YOU ABUSED, NEGLECTED, OR IN AN UNSAFE ENVIRONMENT? NO . ENDOCRINOLOGY: ARE YOU DIABETIC? NO . OTHER: DO YOU NEED ANY PRESCRIPTIONS? NO . IF YES, PLEASE LIST: ____ . ANY NEW PROBLEMS WITH YOUR MEDICATIONS? NO . WHEN DID YOU LAST EAT? ____ . WHEN DID YOU LAST DRINK? ____ . WHAT DID YOU LAST DRINK? ____ . NAME OF PERSON DRIVING YOU HOME? ____ . DO YOU HAVE ANY OTHER QUESTIONS OR CONCERNS NO . EXAMINATION GENERAL EXAMINATION: PSYCHAPPROPRIATE MOOD AND AFFECT , ORIENTED X 3. ASSESSMENTS SPONDYLOSIS OF THORACIC REGION WITHOUT MYELOPATHY OR RADICULOPATHY - M47.814 (PRIMARY) SPONDYLOSIS OF LUMBAR REGION WITHOUT MYELOPATHY OR RADICULOPATHY - M47.816 TREATMENT SPONDYLOSIS OF THORACIC REGION WITHOUT MYELOPATHY OR RADICULOPATHY NOTES: NO VITALS OBTAINED DUE TO PHONE VISIT. CLINICAL NOTES: 74-YEAR-OLD FEMALE IN FOR CHRONIC PAIN FOLLOW-UP. GIVEN PRESENTING SYMPTOMS RECOMMEND FOLLOW-UP IN 3 MONTHS. DISCUSSED PROCEDURES WITH PATIENT AND HOW AT THIS POINT THEY WILL BE PUT ON HOLD GIVEN RECENT INITIATION OF XARELTO. PATIENT HAS EXPRESSED UNDERSTANDING OF AND WAS IN AGREEMENT WITH TREATMENT PLAN. GIVEN TIME TO ASK QUESTIONS AND EXPRESS CONCERNS. VISIT TO BE BILLED BASED ON TIME SPENT WITH PATIENT. TIME SPENT WITH PATIENT 11 MINUTES. . DISPOSITION & COMMUNICATION FOLLOW UP 3 MONTHS (REASON: BACK PAIN ) ELECTRONICALLY SIGNED BY KERI YEUNG ON 12/17/2019 AT 02:23 PM EDT DISCLAIMER : THIS IS A VISIT SUMMARY EXTRACTED FROM THE [employer] CHART. IT IS NOT A COPY OF THE [employer] PROGRESS NOTE. QING
== END ==
LOC: M PAIN 10:30
PROVIDERS: ATTEND Family Medicine
DX: M47.814 Spondylosis without myelopathy or radiculopathy, thoracic region (principal); M47.816 Spondylosis without myelopathy or radiculopathy, lumbar region; E03.9 Hypothyroidism, unspecified; Z79.891 Long term (current) use of opiate analgesic; Z79.899 Other long term (current) drug therapy; Z88.8 Allergy status to other drugs, medicaments and biological substances

== ENCOUNTER 2020-02-05 09:44 | Outpatient (CLI) | payer MEDICARE, BC, OTHER ==
[~2020-02-05] VITALS: Ht 157.5 cm; Wt 77.2 kg
[2020-02-05] MEDS ORDERED: ZOLEDRONIC ACID 5 MG OVER 15 MINUTES IV ONE ×2 (10:00)
[2020-02-05 10:30] VITALS: BP 135/65
[2020-02-05 10:55] VITALS: BP 124/61
[2020-02-21] MEDS ORDERED: OMEP-218 PO ×2 (11:10→11:15)
[2020-02-21] MEDS ORDERED: RANI15TA PO (11:10)
[2020-02-21] MEDS ORDERED: SYNT50TA PO (11:10)
[2020-02-21] MEDS ORDERED: VITAD1000T PO (11:10)
[2020-02-21] MEDS ORDERED: XARE20TA PO (11:10)
[2020-02-21] MEDS ORDERED: TRAZ-186 PO (11:10)
[2020-02-21] MEDS ORDERED: CYCL-707 PO (11:10)
[2020-02-21] MEDS ORDERED: FAMO20TA PO (11:15)
== END 2020-02-05 10:55 | disposition home or self-care (01) ==
LOC: M INFU 09:44
PROVIDERS: ATTEND Internal Medicine
DX: M81.0 Age-related osteoporosis without current pathological fracture (principal); Z88.8 Allergy status to other drugs, medicaments and biological substances
CPT/HCPCS: 96365; J3489

== ENCOUNTER → 2020-02-20 | Outpatient (REF) | payer MEDICARE, OTHER ==
[~2020-02-20] MED LIST changes: +CYCL-707 PO; +FAMO20TA PO; +OMEP-218 PO; +RANI15TA PO; +SYNT50TA PO; +TRAZ-186 PO; +VITAD1000T PO; +XARE20TA PO
[2020-02-22 10:03] LABS: HEPATITIS A ANTIBODY IGM NEGATIVE (NEGATIVE); HEPATITIS B CORE ANTIBODY IGM NEGATIVE (NEGATIVE); HEPATITIS B SURFACE ANTIGEN NEGATIVE (NEGATIVE); HEPATITIS C VIRUS ABY INDEX 0.1 INDEX (<0.8)
== END ==
LOC: M LAB REF 13:06
PROVIDERS: ATTEND Internal Medicine
DX: R74.0 Nonspecific elevation of levels of transaminase and lactic acid dehydrogenase [LDH] (principal)

== ENCOUNTER → 2020-02-20 | Outpatient (CLI) | payer MEDICARE, BC, OTHER ==
[2020-02-20 09:26] LABS: HEMATOCRIT 44.4 % (36.0-47.0); HEMOGLOBIN 14.4 g/dl (12.0-15.5); MEAN CORPUSCULAR HEMOGLOBIN 28.6 pg (27.0-33.0); MEAN CORPUSCULAR HGB CONC 32.4 g/dl (32.0-36.5); MEAN CORPUSCULAR VOLUME 88.1 fl (80.0-96.0); PLATELET COUNT, AUTOMATED 304 10^3/uL (150-450); RED BLOOD COUNT 5.04 10^6/uL (4.00-5.40); WHITE BLOOD COUNT 8.7 10^3/uL (4.0-10.0)
[2020-02-20 09:47] LABS: INR 1.61; PROTHROMBIN TIME 18.9 SECONDS (11.8-14.0)
[2020-02-20 09:49] LABS: ALBUMIN 3.8 GM/DL (3.2-5.2); BILIRUBIN,TOTAL 0.6 MG/DL (0.2-1.0); CALCIUM LEVEL 9.7 MG/DL (8.8-10.2); CREATININE FOR GFR 1.46 MG/DL (0.55-1.30); GLOMERULAR FILTRATION RATE 37.2 (>39); POTASSIUM SERUM 3.8 MEQ/L (3.5-5.1)
[2020-02-20 10:16] LABS: ERYTHROCYTE SEDIMENTATION RATE 18 mm/hr (0-30)
--- NOTE | 2020-02-20 12:17 | ECGEPIP ---
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
--- NOTE | 2020-02-20 13:56 | REP ---
REASON FOR EXAM: Preoperative evaluation. COMPARISON: 09/27/2019. FINDINGS: The superior mediastinal structures are midline. The cardiac silhouette is unremarkable in size, shape, and position. The diaphragmatic surfaces of the lungs are regular, and the costophrenic angles are clear. The pulmonary reyna are clear. The imaged osseous structures are intact. IMPRESSION: There is no acute cardiopulmonary disease. Electronically Signed by Eric Grossman DO 02/20/2020 05:21 P
== END ==
LOC: M LAB 08:35
PROVIDERS: ATTEND Orthopaedic Surgery
DX: Z01.818 Encounter for other preprocedural examination (principal); M17.11 Unilateral primary osteoarthritis, right knee; R74.0 Nonspecific elevation of levels of transaminase and lactic acid dehydrogenase [LDH]

== ENCOUNTER → 2020-02-23 | Outpatient (CLI) | payer MEDICARE, BC, OTHER ==
[~2020-02-23] MED LIST changes: -ASPI81TA85 PO; +ASPI81TA86 PO; +D31000TA2 PO; +PERC5TAB12 PO; -VITAD1000T PO; +XARE15TA PO
== END ==
LOC: M LABSMTC 09:17
PROVIDERS: ATTEND Anesthesiology
DX: Z01.818 Encounter for other preprocedural examination (principal); Z11.59 Encounter for screening for other viral diseases
CPT/HCPCS: C9803; U0003

== ENCOUNTER 2020-02-27 07:01 | Inpatient (IN) | payer MEDICARE, BC, OTHER ==
--- NOTE | 2020-02-26 08:41 | HPE ---
DATE OF ADMISSION: 02/27/2020 ATTENDING PHYSICIAN: Dr. Avalos CHIEF COMPLAINT: Right knee pain and stiffness. HISTORY: The patient is a pleasant 74-year-old female with progressively worsening right knee pain and stiffness. She failed to improve with conservative measures. She continued to have symptoms with weightbearing activities and activities of daily living. She consented for an elective right total knee arthroplasty with Dr. Avalos for her continued symptoms. CURRENT MEDICATIONS: - Lexapro 10 mg daily - levothyroxine 50 mcg daily - omeprazole 20 mg daily - ranitidine 300 mg daily - Crestor 5 mg daily - Xarelto 20 mg daily - vitamin D3 1000 international units daily - trazodone 50 mg 2-3 tablets at bedtime as needed - Flonase 1 spray in each nostril daily as needed - Advair 250/50 inhalation daily as needed for asthma - tramadol 50 mg 1-2 tablets twice daily as needed - Flexeril 10 mg as needed - TENS units to back as needed ALLERGIES: - SPORANOX - CLARITHROMYCIN CHRONIC MEDICAL CONDITIONS: Depression, insomnia, hypothyroid, gastroesophageal reflux disease, hyperlipidemia, history of pulmonary embolism (PE), factor V Leiden, asthma, allergies, chronic pain. PAST SURGICAL HISTORY: Sinus surgery, cholecystectomy, hysterectomy, bilateral knee arthroscopies, hiatal hernia repair, degenerative disk disease with herniations in the cervical, thoracic and lumbar spine, cervical spine fusion. SOCIAL HISTORY: The patient is a former smoker and denies any alcohol use. REVIEW OF SYSTEMS: The patient denies fevers, chills, nausea, vomiting or diarrhea. She denies chest pain, shortness of breath, lightheadedness, dizziness or headaches. She denies any abdominal pain. She denies any recent upper respiratory or urinary tract infection symptoms. The patient does continue to have right knee pain with weightbearing activities and activities of daily living. PHYSICAL EXAMINATION: General: Well-nourished, well-developed female in no apparent distress. She is alert, oriented and cooperative. Mood and affect are appropriate. Vital Signs: Blood pressure 120/70, heart rate 60, respirations 16, height 63.5 inches, weight 160 pounds, temperature 98 degrees. Neck: Supple, without lymphadenopathy. Heart: Regular rate and rhythm. Lungs: Clear to auscultation bilaterally. Abdomen is soft and nontender to palpation. Bowel sounds are present. Musculoskeletal: Right knee exhibits no gross abnormalities. Skin is intact. The patient can extend knee fully and flex to 110 degrees. Right lower extremity strength is 5/5. No hip irritability elicited with range of motion testing. The patient's calf is soft and nontender to palpation. No palpable cords are noted. She is neurovascularly intact distally. LABORATORY DATA: EKG: Sinus rhythm with possible left atrial enlargement with incomplete right bundle branch block, prolonged QTC. Chest x-ray with no acute cardiopulmonary disease. Right knee x-ray notable for end-stage degenerative changes. Prothrombin time elevated at 18.9, INR 1.61. Comprehensive metabolic profile with fasting glucose elevated at 108, BUN 15, creatinine elevated at 1.46, GFR decreased at 37.2, sodium 141, potassium 3.8, chloride elevated at 108, carbon dioxide 24, anion gap 9, calcium 9.7, AST elevated at 66, ALT elevated at 100, alkaline phosphatase elevated at 132, total bilirubin 0.6, total protein 7.0, albumin 3.8, albumin-globulin ratio 1.2. Complete blood count with ESR 18, WBC 8.7, RBC 5.04, hemoglobin 14.4, hematocrit 44.4, and platelets 304. IMPRESSION: Right knee degenerative arthritis with x-rays notable for end-stage degenerative changes. PLAN: The patient has consented for an elective right total knee arthroplasty with Dr. Avalos for her continued symptoms. Medical optimization is pending with Dr. Mueller. The patient will continue to use her Hibiclens and Bactroban as directed. She will contact [facility] the day prior to surgery for a report time. She will be nothing by mouth (n.p.o.) after midnight. The patient understands to follow her primary critical care unit nurse's recommendations for taking daily medications and when to stop anticoagulants. QING
[2020-02-27] VITALS (8 sets, daily range): BP systolic 124–161; BP diastolic 61–75
[~2020-02-27] VITALS: Ht 160 cm; Wt 72.5 kg
[~2020-02-27 07:01] MED LIST changes: +ACETAMINOPHEN 500 MG TAB PO ONE; +ASPI81TA85 PO; -ASPI81TA86 PO; -D31000TA2 PO; +LIDOCAINE 1% MDV 20ML VIAL SQ PRN; +LIDOCAINE 2% 100MG/5ML SDV (FOR ANES.) As Ordered ONE; +LR 1,000 ML IV ONE; -PERC5TAB12 PO; +VITAD1000T PO; -XARE15TA PO; +ceFAZolin SOD 2 GM in IV 1 EA IV ONE; +fentaNYL 100 MCG/2 ML INJECTION (J3010) As Ordered ONE; +propofoL 200 MG/20 ML VIAL As Ordered ONE; +propofoL 500 MG/50 ML VIAL As Ordered ONE
[2020-02-27] MEDS ORDERED: SCOPOLAMINE 1MG TRANSDERMAL PATCH TOP ONE (08:15)
[2020-02-27] MEDS ORDERED: BUPIVACAINE HCL 0.25% 10ML VIAL As Ordered ONE (08:29)
[2020-02-27] MEDS ORDERED: MIDAZOLAM INJ 2MG/2ML VIAL (J2250 PER 1MG) As Ordered ONE ×2 (08:29→09:28)
[2020-02-27] MEDS ORDERED: TRANEXAMIC ACID 100 MG/ML 10ML VIAL As Ordered ONE (08:29)
[2020-02-27] MEDS ORDERED: fentaNYL 100 MCG/2 ML INJECTION (J3010) As Ordered ONE ×2 (08:29→10:29)
[2020-02-27] MEDS ORDERED: BUPIVACAINE LIPOSOME/PF 1.3% 20ML VIAL (13.3MG/ML)(EXPAREL)(C9290 PER1MG) As Ordered ONE (08:30)
[2020-02-27] MEDS ORDERED: ceFAZolin 1GM VIAL (J0690 PER 500MG) As Ordered ONE (08:30)
[2020-02-27] MEDS ORDERED: EPINEPHrine INJ 1 MG/ML 1ML AMP As Ordered ONE (08:30)
[2020-02-27] MEDS ORDERED: MIDAZOLAM INJ 2MG/2ML VIAL (J2250 PER 1MG) IV ONE (09:15)
[2020-02-27] MEDS ORDERED: fentaNYL 100 MCG/2 ML INJECTION (J3010) IV ONE (09:15)
[2020-02-27] MEDS ORDERED: ROCURONIUM BROMIDE 50 MG/5 ML VIAL As Ordered ONE (09:29)
[2020-02-27] MEDS ORDERED: SUGAMMADEX SODIUM 500 MG/5 ML VIAL (BRIDION) As Ordered ONE (09:29)
[2020-02-27] MEDS ORDERED: dexameTHASONE 4 MG/ML 1ML VIAL (J1100 PER 1MG) As Ordered ONE (09:29)
[2020-02-27] MEDS ORDERED: ONDANSETRON 4MG/2ML VIAL As Ordered ONE (09:29)
[2020-02-27] MEDS ORDERED: ACETAMINOPHEN 1000MG 100ML IV BTL (OFIRMEV) (J0131 PER 10MG) As Ordered ONE (10:22)
[2020-02-27] MEDS ORDERED: LIDOCAINE 1% MDV 20ML VIAL ONE (11:10)
[2020-02-27] MEDS ORDERED: dexameTHASONE 10MG/1ML VIAL PRES.FREE (J1100 PER 1MG) ONE (11:10)
[2020-02-27] MEDS ORDERED: ROPIvacaine 0.5% 30ML INJECTION (J2795 PER 1MG) ONE (11:10)
[2020-02-27] MEDS ORDERED: LABETALOL 100MG/20ML VIAL As Ordered ONE (11:41)
[2020-02-27] MEDS: fentaNYL 100 MCG/2 ML INJECTION (J3010) IV PRN ×4 (12:04→12:25)
[2020-02-27] MEDS ORDERED: ONDANSETRON 4MG/2ML VIAL IV PRN ×2 (12:15)
[2020-02-27] MEDS ORDERED: LR 1,000 ML IV SCH (12:15)
[2020-02-27] MEDS ORDERED: oxyCODONE 5MG TAB PO PRN (12:15)
[2020-02-27] MEDS ORDERED: PERCOCET 5MG/325MG TAB PO PRN ×3 (12:15→19:15)
[2020-02-27] MEDS ORDERED: MORPHINE 2 MG/ML 1ML VIAL (J2270) IV PRN (12:15)
[2020-02-27] MEDS ORDERED: ACETAMINOPHEN TAB 650MG DOSE (2X325MG) PO PRN (12:15)
[2020-02-27] MEDS: LR 1,000 ML IV SCH ×2 (12:15→22:13)
[2020-02-27] MEDS: HYDROMORPHONE HCL 0.5 MG/ 0.5 ML SYRINGE (J1170 PER 1) IV PRN ×4 (12:35→13:00)
[2020-02-27] MEDS ORDERED: traZODone 100 MG TAB PO PRN (15:00)
[2020-02-27] MEDS ORDERED: CYCLOBENZAPRINE 10MG TABLET PO PRN (15:00)
[2020-02-27] MEDS ORDERED: ADVAIR HFA 115/21MCG INHALER INH PRN (15:00)
[2020-02-27] MEDS ORDERED: PILL CUTTER 1 EACH XX PRN (15:15)
--- NOTE | 2020-02-27 15:15 | CR.PDOC ---
General Date of Consultation: Feb 27, 2020 Attending Physician: SUELLEN HARRISON PIC Consultation REASON FOR CONSULTATION/CHIEF COMPLAINT: right knee pain HISTORY OF PRESENT ILLNESS: 74 y/o F with h/o osteoarthritis was scheduled for total right knee replacement after failing conservative management. Hospitalist service was consulted for comanagement. Pt was seen and examined at bedside before surgery. Pt c/o mild non specific right knee pain denied any other associated symptom. Pt was seen again after surgery HOME MEDICATIONS: Reviewed, please refer to permanent medical records PAST MEDICAL HISTORY: 1. h/o PE 2. h/o Factor V deficiency 3. Hypothyroidism 4. CKD stage 3 5. Osteoarthritis 6. GERD 7. HLD 8. Depression 9. Asthma PAST SURGICAL HISTORY: cholecystectomy, Sinus surgery, hysterectomy, bilateral knee arthroscopies,hiatal hernia repair, degenerative disk disease with herniations in the cervical, thoracic and lumbar spine, cervical spine fusion. FAMILY HISTORY: Father: HTN Mother: No significant medical issues SOCIAL HISTORY: Former smoker REVIEW OF SYSTEMS: 10 points review of systems was performed and it was negative except as per HPI ALLERGIES- Clarithromycin- unknown reaction PHYSICAL EXAMINATION: GENERAL APPEARANCE: Comfortable HEENT: oral mucosa moist RESPIRATORY: Clear to auscultation CARDIOVASCULAR: regular rate and rhythm ABDOMEN: soft, non tender EXTREMITIES: b/l lower extremities neurovascularly intact NEUROLOGICAL: no focal deficit PSYCHIATRIC: Mood normal LABORATORY DATA: Please see below. ASSESSMENT/PLAN: 74 F s/p total right knee placement. Pt tolerated the procedure very well Impression- s/p right knee placement. Plan 1. S/p right knee placement. Pain management. PO Xarelto for DVT ppx renally dose adjusted 15 mg once daily further management and discharge planning as per primary ortho team 2. h/o PE and Factor V deficiency home meds Xarelto 3. Osteoarthritis home meds 4. GERD home meds 5. Hypothyroidism home meds 6. HLD home meds 7. CKD stage 3 stable will avoid nephrotoxic meds 8. Depression home meds 9. Asthma stable mild intermittent home meds Vital Signs/I&O Vital Signs Date Time Temp Pulse Resp B/P (MAP) Pulse Ox O2 Delivery O2 Flow Rate FiO2 02/27/20 14:00 2.0 02/27/20 13:20 97.4 68 18 162/85 (110) 97 Nasal Cannula 02/27/20 12:25 100 Allergies Coded Allergies: itraconazole (Verified Allergy, Intermediate, HIVES, 10/12/19) clarithromycin (Verified Adverse Reaction, Mild, METALLIC TASTE IN MOUTH, 10/12/19) Home Medications Scheduled Cholecalciferol (Vitamin D3) (Vitamin D3) 1,000 Unit Tablet, 1,000 UNITS PO DAILY, (Reported) Escitalopram Oxalate (Escitalopram Oxalate) 10 Mg Tab, 10 MG PO DAILY, (Reported) Famotidine (Famotidine) 20 Mg Tablet, 20 MG PO QHS, (Reported) Fluticasone Propionate (Flonase Allergy Relief) 50 Mcg/Act Spr, 50 MCG NA QHS, (Reported) Levothyroxine Sodium (Synthroid) 50 Mcg Tablet, 50 MCG PO DAILY, (Reported) Omeprazole (Omeprazole) 20 Mg Capsule.dr, 20 MG PO DAILY, (Reported) Rivaroxaban (Xarelto) 20 Mg Tablet, 20 MG PO DAILY, (Reported) Rosuvastatin Calcium (Crestor) 5 Mg Tablet, 5 MG PO DAILY, (Reported) Scheduled PRN Cyclobenzaprine HCl (Cyclobenzaprine HCl) 10 Mg Tablet, 10 MG PO TID PRN for MUSCLE SPASMS, #15 (Reported) Salmeterol/Fluticasone (Advair 250-50 Diskus) 14 Puff/Inhaler Aerp, 1 PUFF INH QHS PRN for NASAL CONGESTION, (Reported) Tramadol HCl (Tramadol HCl) 50 Mg Tab, 50 MG PO BIDP PRN for PAIN, (Reported) Trazodone HCl (Trazodone HCl) 50 Mg Tablet, 100 MG PO QHSP PRN for SLEEP, (Reported) MIGUELANGEL NARVAEZ MD Feb 27, 2020 15:15
--- NOTE | 2020-02-27 15:42 | REP ---
REASON: Status post total right knee arthroplasty. The femoral and tibial components are well seated and well approximated. The alignment is near anatomical. There is expected postoperative soft tissue swelling. There is an anterior skin staple line in place. Electronically Signed by Eric Grossman DO 02/27/2020 04:10 P
[2020-02-27] MEDS: VITAMIN D 1,000 INTERNATIONAL UNITS TABLET PO SCH (17:32)
[2020-02-27] MEDS: traMADol 50 MG TAB PO PRN (17:32)
[2020-02-27] MEDS: ROSUVASTATIN 10 MG TAB (CRESTOR) PO SCH (17:33)
[2020-02-27] MEDS: ceFAZolin SOD 2 GM in IV 1 EA IV SCH (18:56)
[2020-02-27] MEDS: PERCOCET 5MG/325MG TAB PO PRN (19:41)
[2020-02-27] MEDS ORDERED: FLUTICASONE PROP 0.05% NASAL SPRAY 16 GM (FLONASE) SCH (21:00)
[2020-02-28] MEDS: PERCOCET 5MG/325MG TAB PO PRN ×4 (00:07→13:01)
[2020-02-28] MEDS: ceFAZolin SOD 2 GM in IV 1 EA IV SCH ×2 (01:07→09:14)
[2020-02-28 02:18] VITALS: BP 142/61
[2020-02-28 06:00] VITALS: BP 148/70
[2020-02-28] MEDS ORDERED: LEVOTHYROXINE 50MCG TABLET (0.05MG) PO SCH (06:00)
[2020-02-28] MEDS ORDERED: PERC5TAB12 PO (06:19)
[2020-02-28 07:19] LABS: HEMATOCRIT 38.6 % (36.0-47.0); HEMOGLOBIN 12.6 g/dl (12.0-15.5); MEAN CORPUSCULAR HEMOGLOBIN 29.3 pg (27.0-33.0); MEAN CORPUSCULAR HGB CONC 32.6 g/dl (32.0-36.5); MEAN CORPUSCULAR VOLUME 89.8 fl (80.0-96.0); PLATELET COUNT, AUTOMATED 295 10^3/uL (150-450); WHITE BLOOD COUNT 24.2 10^3/uL (4.0-10.0)
[2020-02-28] MEDS ORDERED: XARE15TA PO (08:34)
[2020-02-28] MEDS: ROSUVASTATIN 10 MG TAB (CRESTOR) PO SCH (09:00)
[2020-02-28] MEDS ORDERED: MOM 30ML SUSPENSION UDC PO SCH (09:00)
[2020-02-28] MEDS ORDERED: ESCITALOPRAM OXALATE 10 MG TAB (LEXAPRO) PO SCH (09:00)
[2020-02-28] MEDS ORDERED: OMEPRAZOLE 20 MG CAP PO SCH (09:00)
[2020-02-28] MEDS ORDERED: MIRALAX *UNIT DOSE* 17GM PACKET PO SCH (09:00)
[2020-02-28] MEDS: VITAMIN D 1,000 INTERNATIONAL UNITS TABLET PO SCH (09:14)
[2020-02-28 10:00] VITALS: BP 169/77
[2020-02-28] MEDS ORDERED: RIVAROXABAN 15 MG TAB (XARELTO) PO ONE (13:00)
[2020-02-28] MEDS: traMADol 50 MG TAB PO PRN (13:02)
[2020-02-28] MEDS ORDERED: RIVAROXABAN 15 MG TAB (XARELTO) PO SCH (18:00)
== END 2020-02-28 14:45 | disposition home or self-care (01) | DRG 470 ==
LOC: M OR 07:01 → M MS5PR 13:45
PROVIDERS: ADMIT Orthopaedic Surgery; ATTEND Orthopaedic Surgery
PROC: 0SRC0J9 Replacement of Right Knee Joint with Synthetic Substitute, Cemented, Open Approach (ICD-10-PCS; principal; 2020-02-27 09:30)
DX: M17.11 Unilateral primary osteoarthritis, right knee (principal); D68.2 Hereditary deficiency of other clotting factors; J45.909 Unspecified asthma, uncomplicated; F32.9 Major depressive disorder, single episode, unspecified; E78.5 Hyperlipidemia, unspecified; E03.9 Hypothyroidism, unspecified; G47.00 Insomnia, unspecified; Z88.8 Allergy status to other drugs, medicaments and biological substances; Z87.891 Personal history of nicotine dependence; K21.9 Gastro-esophageal reflux disease without esophagitis; Z86.711 Personal history of pulmonary embolism; Z79.899 Other long term (current) drug therapy; N18.3 Chronic kidney disease, stage 3 (moderate)

== ENCOUNTER → 2020-05-10 | Outpatient (CLI) | payer MEDICARE, BC, OTHER ==
[~2020-05-10] MED LIST changes: -ACETAMINOPHEN 500 MG TAB PO ONE; -ASPI81TA85 PO; +ASPI81TA86 PO; +D31000TA2 PO; -LIDOCAINE 1% MDV 20ML VIAL SQ PRN; -LIDOCAINE 2% 100MG/5ML SDV (FOR ANES.) As Ordered ONE; -LR 1,000 ML IV ONE; +PERC5TAB12 PO; -VITAD1000T PO; +XARE15TA PO; -ceFAZolin SOD 2 GM in IV 1 EA IV ONE; -fentaNYL 100 MCG/2 ML INJECTION (J3010) As Ordered ONE; -propofoL 200 MG/20 ML VIAL As Ordered ONE; -propofoL 500 MG/50 ML VIAL As Ordered ONE
--- NOTE | 2020-05-28 11:57 | REP ---
RIGHT RIB SERIES HISTORY: Fall with right rib contusion. TECHNIQUE: Four views of the right ribs are performed. FINDINGS: No fracture is visualized. No bone lesion is visualized. A PA view of the chest demonstrates no acute infiltrate, pneumothorax, or pleural effusion. The heart is not significantly enlarged. The mediastinal silhouette is unremarkable. Metallic plate and screws are seen in the lower cervical spine. IMPRESSION: No radiographic evidence of right rib fracture. MTDD
== END ==
LOC: M WUC 13:21
PROVIDERS: ATTEND Physician Assistant
DX: S20.211A Contusion of right front wall of thorax, initial encounter (principal); X58.XXXA Exposure to other specified factors, initial encounter; Y92.89 Other specified places as the place of occurrence of the external cause

== ENCOUNTER → 2020-06-23 | Outpatient (CLI) | payer MEDICARE, BC, OTHER ==
[2020-06-23 09:31] LABS: HEMATOCRIT 44.5 % (36.0-47.0); HEMOGLOBIN 13.7 g/dl (12.0-15.5); MEAN CORPUSCULAR HEMOGLOBIN 27.9 pg (27.0-33.0); MEAN CORPUSCULAR HGB CONC 30.8 g/dl (32.0-36.5); MEAN CORPUSCULAR VOLUME 90.6 fl (80.0-96.0); PLATELET COUNT, AUTOMATED 329 10^3/uL (150-450); RED BLOOD COUNT 4.91 10^6/uL (4.00-5.40); WHITE BLOOD COUNT 8.8 10^3/uL (4.0-10.0)
[2020-06-23 09:48] LABS: INR 1.48; PROTHROMBIN TIME 18.2 SECONDS (12.5-14.3)
--- NOTE | 2020-06-23 09:50 | REP ---
INDICATION: LEFT TOTAL KNEE ARTHROPLASTY. COMPARISON: PA chest 05/10/2020, PE lateral to 02/20/2020 TECHNIQUE: Two views. FINDINGS: The lung reyna are well inflated without infiltrate, effusion, atelectasis or mass. There is no lateral or apical pleural thickening. Heart size not enlarged. No vascular redistribution or pulmonary edema. Salena symmetric and unchanged. The aorta is normal for age. Airway intact. Prior anterior cervical fusion with plate and screw fixation device again seen. Degenerative changes noted in the thoracic spine without acute compression deformity. No free air under the diaphragm. Right upper quadrant surgical clips from prior cholecystectomy again seen. IMPRESSION: No acute cardiopulmonary change, stable chest. <Electronically signed by Lew Oreilly > 06/23/20 0907
[2020-06-23 09:54] LABS: ALBUMIN 3.7 GM/DL (3.2-5.2); BILIRUBIN,TOTAL 0.7 MG/DL (0.2-1.0); CALCIUM LEVEL 9.5 MG/DL (8.8-10.2); CREATININE FOR GFR 1.24 MG/DL (0.55-1.30); GLOMERULAR FILTRATION RATE 44.9 (>39); POTASSIUM SERUM 5.2 MEQ/L (3.5-5.1); TOTAL PROTEIN 6.9 GM/DL (6.4-8.2)
[2020-06-23 10:03] LABS: ERYTHROCYTE SEDIMENTATION RATE 25 mm/hr (0-30)
--- NOTE | 2020-06-24 05:43 | ECGEPIP ---
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
== END ==
LOC: M LAB 08:47
PROVIDERS: ATTEND Orthopaedic Surgery
DX: M17.12 Unilateral primary osteoarthritis, left knee (principal)

== ENCOUNTER → 2020-07-02 | Outpatient (CLI) | payer MEDICARE, BC, OTHER ==
[~2020-07-02] MED LIST changes: +TIZA4TAB4 PO
== END ==
LOC: M LABSMTC 10:59
PROVIDERS: ATTEND Anesthesiology
DX: Z01.812 Encounter for preprocedural laboratory examination (principal); Z20.828 Contact with and (suspected) exposure to other viral communicable diseases

== ENCOUNTER 2020-07-07 06:59 | Inpatient (IN) | payer MEDICARE, BC, OTHER ==
--- NOTE | 2020-07-03 11:42 | HPE ---
DATE OF ADMISSION: 07/07/2020 ATTENDING: Dr. Ajay Avalos CHIEF COMPLAINT: Left knee pain. HISTORY OF PRESENT ILLNESS: Reta is a pleasant 74-year-old female with progressively worsening left knee pain and stiffness. She has failed to improve with conservative treatment. She has elected for surgery for her continued symptoms. She has pain with weightbearing activities and her activities of daily living. X-rays of her knee are notable for advanced osteoarthritis of the left knee joint. She is consented for a left total knee arthroplasty by Dr. Ajay Avalos. Medical optimization was performed by Dr. Mueller. ALLERGIES: CLARITHROMYCIN and SPORANOX. CURRENT MEDICATIONS: - Lexapro 10 mg in the morning - Synthroid 25 mcg in the morning - famotidine 20 mg in the morning - omeprazole 20 mg in the evening - Crestor 5 mg in the evening - Xarelto 50 mg a day - Vitamin D3 at 1000 units at night - Reclast once a year - Flonase one spray in both nostrils as needed - Advair 250/50 one actuation as needed for asthma daily - Tramadol 50 mg one to two tablets up to twice a day for back and knee pain - Flexeril 10 mg as needed PAST MEDICAL HISTORY: 1. High cholesterol. 2. Hypothyroidism. 3. Gastroesophageal reflux disease (GERD). 4. Osteoporosis. 5. Seasonal allergies. Of note, she has factor V Leiden. PAST SURGICAL HISTORY: 1. Cholecystectomy. 2. Three sinus surgeries. 3. One hysterectomy. 4. Left knee arthroscopy. 5. Hiatal hernia repair. 6. Right knee arthroscopy. 7. Cervical fusion. 8. Right total knee replacement. SOCIAL HISTORY: Quit smoking 40 years ago. Does not drink alcohol. Is retired. FAMILY HISTORY: Noncontributory. REVIEW OF SYSTEMS: This patient denies chest pain, heart palpitations, cough, wheezing, difficulty breathing, and shortness of breath. She denies abdominal pain, nausea, vomiting, diarrhea, or constipation. She denies recent upper respiratory infection or urinary tract infection symptoms. She does complain of persistent pain in the left knee joint. PHYSICAL EXAMINATION: GENERAL: She is a well-nourished, well-developed, in no acute distress alert female patient who ambulates with a moderate limp favoring the left lower extremity and uses a walker. VITAL SIGNS: She is 5 feet 1 inch, weighs 155.8 pounds. Temperature 96.8, blood pressure 124/80, pulse 75, respirations 14. NECK: Supple without adenopathy or jugular venous distention. There were no carotid bruits appreciated upon auscultation. LUNGS: Clear to auscultation without rales or wheeze. HEART: Regular rate and rhythm. ABDOMEN: Bowel sounds were present. EXTREMITIES: Examination of the left knee revealed intact skin. She had decreased range of motion due to pain and stiffness. The limb is neurovascularly intact. LABORATORY DATA: Protime 18.2, INR 1.48. Glucose 115, BUN 17, creatinine 1.24, sodium 139, potassium 5.2. CBC showed mean corpuscular hemoglobin concentration of 30.8, otherwise within normal limits. with a sedimentation rate of 25. Chest x-ray and EKG were not available at this point. IMPRESSION: Symptomatic osteoarthritis of the left knee joint. PLAN: Consented for a left total knee arthroplasty by Dr. Ajay Avalos pending EKG and chest x-ray results. glenys Donahue [facility] HE[facility] NETWORKGerson
[~2020-07-07] VITALS: Ht 157.5 cm; Wt 70.2 kg
[~2020-07-07 06:59] MED LIST changes: +ACETAMINOPHEN 500 MG TAB PO ONE; +LR 1,000 ML IV ONE; -TIZA4TAB4 PO; +ceFAZolin SOD 2 GM in IV 1 EA IV ONE
[2020-07-07] MEDS ORDERED: MIDAZOLAM INJ 2MG/2ML VIAL (J2250 PER 1MG) IV PRN (07:01)
[2020-07-07] MEDS ORDERED: fentaNYL 100 MCG/2 ML INJECTION (J3010) IV PRN (07:01)
[2020-07-07] MEDS ORDERED: fentaNYL 100 MCG/2 ML INJECTION (J3010) As Ordered ONE (08:30)
[2020-07-07] MEDS ORDERED: MIDAZOLAM INJ 2MG/2ML VIAL (J2250 PER 1MG) As Ordered ONE ×2 (08:30→08:34)
[2020-07-07] MEDS ORDERED: LIDOCAINE 2% 100MG/5ML SDV (FOR ANES.) As Ordered ONE (08:32)
[2020-07-07] MEDS ORDERED: propofoL 200 MG/20 ML VIAL As Ordered ONE (08:33)
[2020-07-07] MEDS ORDERED: fentaNYL 250 MCG/5 ML INJECTION (J3010) As Ordered ONE (08:34)
[2020-07-07] MEDS ORDERED: ROPIvacaine 0.5% 30ML INJECTION (J2795 PER 1MG) XX ONE (08:45)
[2020-07-07] MEDS ORDERED: TRANEXAMIC ACID 100 MG/ML 10ML VIAL As Ordered ONE (09:51)
[2020-07-07] MEDS ORDERED: BUPIVACAINE HCL 0.5% 10ML VIAL As Ordered ONE (09:51)
[2020-07-07] MEDS ORDERED: BUPIVACAINE LIPOSOME/PF 1.3% 20ML VIAL (13.3MG/ML)(EXPAREL)(C9290 PER1MG) As Ordered ONE (09:52)
[2020-07-07] MEDS ORDERED: ceFAZolin 1GM VIAL (J0690 PER 500MG) As Ordered ONE (09:52)
[2020-07-07] MEDS ORDERED: EPINEPHrine INJ 1 MG/ML 1ML AMP As Ordered ONE (09:52)
[2020-07-07] MEDS ORDERED: ESMOLOL INJ 100MG/10ML VIAL As Ordered ONE (10:38)
[2020-07-07] MEDS ORDERED: LABETALOL 100MG/20ML VIAL As Ordered ONE (10:41)
[2020-07-07] MEDS ORDERED: dexameTHASONE 4 MG/ML 1ML VIAL (J1100 PER 1MG) As Ordered ONE (11:31)
[2020-07-07] MEDS ORDERED: ONDANSETRON 4MG/2ML VIAL As Ordered ONE (11:31)
[2020-07-07] MEDS ORDERED: KETOROLAC 60MG 2ML VIAL As Ordered ONE (11:31)
[2020-07-07] MEDS: fentaNYL 100 MCG/2 ML INJECTION (J3010) IV PRN ×4 (12:12→12:27)
[2020-07-07] MEDS ORDERED: ONDANSETRON 4MG/2ML VIAL IV PRN ×2 (12:30→12:45)
[2020-07-07] MEDS ORDERED: LR 1,000 ML IV SCH ×2 (12:30→12:45)
[2020-07-07] MEDS ORDERED: METOCLOPRAMIDE INJ 10MG/2ML VIAL (J2765 PER 1) IV PRN (12:30)
[2020-07-07] MEDS ORDERED: PERCOCET 5MG/325MG TAB PO PRN ×2 (12:30→12:45)
[2020-07-07] MEDS ORDERED: MORPHINE 2 MG/ML 1ML VIAL (J2270) As Ordered ONE (12:32)
[2020-07-07] MEDS ORDERED: MORPHINE 4 MG/ML 1ML VIAL/SYRINGE (J2270) IV PRN (12:45)
[2020-07-07] MEDS ORDERED: MORPHINE 2 MG/ML 1ML VIAL (J2270) IV PRN (12:45)
[2020-07-07] MEDS ORDERED: ACETAMINOPHEN TAB 650MG DOSE (2X325MG) PO PRN (12:45)
--- NOTE | 2020-07-07 12:52 | REP ---
INDICATION: S/P LEFT TOTAL KNEE REPLACEMENT COMPARISON: None. TECHNIQUE: AP and cross-table lateral views. FINDINGS: Normal appearance and positioning to the femoral and tibial components. Overlying postsurgical changes and skin carlos noted. IMPRESSION: Status post left knee replacement. <Electronically signed by Dada Bowser > 07/07/20 0022
[2020-07-07 14:30] VITALS: BP 151/81
[2020-07-07] MEDS: PERCOCET 5MG/325MG TAB PO PRN ×2 (15:23→21:35)
[2020-07-07 15:30] VITALS: BP 153/80
[2020-07-07 16:30] VITALS: BP 140/71
--- NOTE | 2020-07-07 16:51 | CR.PDOC ---
General Date of Consultation: Jul 07, 2020 Consultation Chief complaint: Presented to [facility] for elective left knee arthroplasty History of present illness: Patient is a 74-year-old female with a PMHx of PE (2014, 2/2 Factor V Leiden mutation, on Xarelto), DLP, Hypothyroidism, Osteoporosis, Seasonal allergies, GERD / Hiatal hernia, who presented to [facility] for an elective left knee total arthroplasty with orthopedic surgery. Patient has received outpatient medical clearance from her primary care provider Tonja Mueller patient did not require any cardiac clearance. Hospital service was consulted for medical management post operatively Patient is seen postoperatively. She denies any headache, nausea, vomiting, chest pain, shortness of breath, palpitations, abdominal pain, constipation, diarrhea, or urinary discomfort. She denies any recent fevers or chills. Patient reports that her appetite is fairly normal and denies any significant changes in her weight Past Medical History: PE (2014, 2/2 Factor V Leiden mutation, on Xarelto), DLP, Hypothyroidism, Osteoporosis, Seasonal allergies, GERD / Hiatal hernia, Past Surgical History: Cholecystectomy Sinus surgery 3 Hysterectomy Left and right knee arthroscopy Cervical fusion Right total knee arthroplasty 02/2020 Allergies: See below Medications: See below Family History: - No history of malignancies Social History: - Denies the use of alcohol or illicit drugs; patient reports that she quit smoking 60 years ago, was a smoker 10 years at one PPD - Denies recent travel or sick contacts - Lives alone - Occupation; 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 [employer] Review of Systems: 10 point review of systems complete, all negative otherwise stated in HPI Physical exam: - Vitals: BP [153/80], HR [85], RR [18], Sat [95%RA], Temp [97.6F] - General: Lying in bed, No acute distress, Speaking in full sentences, AAOx3 - HEENT: NC, AT, PERRLA - CVS: RRR, +S1S2 - Lungs: Fair air entry bilaterally, No appreciable wheezing / rales / rhonchi - Abdomen: Soft, Non-distended, Non-tender - Extremities: No lower extremity edema, No calf tenderness - Neuro: No focal motor or sensory deficit - Skin: No visible rashes Labs: See below Imaging: See below EKG: See below Assessment and Plan: Elective total left knee arthroplasty (POD#0) - Presented to [facility] for an elective orthopedic procedure - Has received outpatient medical clearance from her primary care provider, Tonja Mueller - Pain control, anticoagulation, and physical therapy at the direction of primary orthopedic team PE (2014, 09/16 Factor V Leiden mutation) - Will resume anticoagulation as per orthopedic surgery DLP - c/w Rosuvsatatin Hypothyroidism - c/w Levothyroxine Osteoporosis - c/w Vitamin D Seasonal allergies Mood disorder - c/w Escitalopram GERD / Hiatal hernia - c/w Omeprazole DVT prophylaxis - Anticoagulation as per primary orthopedic team Vital Signs/I&O Vital Signs Date Time Temp Pulse Resp B/P (MAP) Pulse Ox O2 Delivery O2 Flow Rate FiO2 07/07/20 16:33 16 Room Air 07/07/20 15:30 97.6 85 153/80 (104) 95 07/07/20 12:58 2 Allergies Coded Allergies: itraconazole (Verified Allergy, Intermediate, HIVES, 07/07/20) clarithromycin (Verified Adverse Reaction, Mild, METALLIC TASTE IN MOUTH, 07/07/20) Home Medications Scheduled Cholecalciferol (Vitamin D3) (Vitamin D3) 1,000 Unit Tablet, 1,000 UNITS PO DAILY, (Reported) Escitalopram Oxalate (Escitalopram Oxalate) 10 Mg Tab, 10 MG PO DAILY, (Reported) Famotidine (Famotidine) 20 Mg Tablet, 20 MG PO QHS, (Reported) Fluticasone Propionate (Flonase Allergy Relief) 50 Mcg/Act Spr, 50 MCG NA QHS, (Reported) Levothyroxine Sodium (Synthroid) 50 Mcg Tablet, 25 MCG PO DAILY, (Reported) Omeprazole (Omeprazole) 20 Mg Capsule.dr, 20 MG PO DAILY, (Reported) Rivaroxaban (Xarelto) 15 Mg Tablet, 15 MG PO DAILY for 30 Days, #30 Rosuvastatin Calcium (Crestor) 5 Mg Tablet, 5 MG PO DAILY, (Reported) Scheduled PRN Cyclobenzaprine HCl (Cyclobenzaprine HCl) 10 Mg Tablet, 10 MG PO TID PRN for MUSCLE SPASMS, #15 (Reported) Oxycodone HCl/Acetaminophen (Percocet 5-325 mg Tablet) 1 Each Tablet, 1 TAB PO Q4H PRN for PAIN, #30 Salmeterol/Fluticasone (Advair 250-50 Diskus) 14 Puff/Inhaler Aerp, 1 PUFF INH QHS PRN for NASAL CONGESTION, (Reported) Tramadol HCl (Tramadol HCl) 50 Mg Tab, 50 MG PO BIDP PRN for PAIN, (Reported) YAMINI RODRIGES MD Jul 07, 2020 16:51
[2020-07-07] MEDS ORDERED: CYCLOBENZAPRINE 10MG TABLET PO PRN (17:00)
[2020-07-07] MEDS ORDERED: TIZA4TAB4 PO (17:07)
[2020-07-07 17:30] VITALS: BP 91/65
[2020-07-07] MEDS ORDERED: PILL CUTTER 1 EACH XX PRN (17:30)
[2020-07-07] MEDS ORDERED: tiZANidine 4 MG TAB PO PRN (17:45)
[2020-07-07] MEDS: ceFAZolin SOD 2 GM in IV 1 EA IV SCH (18:13)
[2020-07-07 18:30] VITALS: BP 116/65
[2020-07-07] MEDS: ADVAIR HFA 115/21MCG INHALER INH SCH (19:32)
[2020-07-07 22:00] VITALS: BP 120/65
[2020-07-08] MEDS: ceFAZolin SOD 2 GM in IV 1 EA IV SCH ×2 (01:20→10:00)
[2020-07-08 02:00] VITALS: BP 120/63
[2020-07-08] MEDS ORDERED: LEVOTHYROXINE 25MCG TABLET (0.025MG) PO SCH (06:00)
[2020-07-08] MEDS ORDERED: PERC5TAB12 PO (06:20)
--- NOTE | 2020-07-08 07:28 | RO ---
DATE OF OPERATION: 07/07/2020 PREOPERATIVE DIAGNOSIS: Left knee degenerative arthritis. POSTOPERATIVE DIAGNOSIS: Left knee degenerative arthritis. PROCEDURE: Left total knee arthroplasty using a size 5 cruciate-retaining Attune cemented femoral component with a size 4 tibial tray, a 6-mm rotating platform polyethylene insert, and a 35-mm polyethylene button. All components were cemented. Prosthesis was made by [employer]. SURGEON: Kaleb Avalos M.D. OPHTHALMOLOGIST RETINA SPECIALIST: Marzena Austin PA-C ANESTHESIA: Left femoral nerve block with general endotracheal anesthesia. COMPLICATIONS: None. ESTIMATED BLOOD LOSS: 20 mL. SPECIMENS: Joint surface. DESCRIPTION OF PROCEDURE: Antibiotics were given intravenously preoperative. A successful left femoral nerve block and then a spinal anesthetic was induced. Tourniquet placed to the left upper thigh and not inflated. The left lower extremity was carefully prepped and draped in the usual sterile fashion, elevated, and after appropriate timeout, the tourniquet was inflated. A longitudinal incision was made for a medial parapatellar approach to the knee. Bovee cautery was used to coagulate the crossing vessels. Subperiosteal dissection of the proximal, medial, and lateral tibial plateau was performed. We then patella flexed the knee and debrided the ACL. Drill was placed down the center of the femoral canal followed by the intramedullary georgette. The distal femoral cutting jig set at 5 degree valgus cut at 9 mm resection level for a left knee. The block was pinned into position and distal femoral cut performed. The AP sizing jig measured for a size 5. Three views of external rotation were dialed in, pins placed, 4:1 block applied, and the anteroposterior chamfer cuts performed. The notchplasty jig was applied and the notchplasty performed. We then exposed the proximal tibia and used the extramedullary rods to estimate being parallel to the mechanical axis of the proximal tibia referencing off the medial tibial condyle at 4 mm resection level. The block was pinned into position. Secondary check with the extramedullary georgette confirmed that we appeared to be parallel to the mechanical axis. The proximal tibial osteotomy was thus performed. The laminar rug dyer helper was then placed laterally and we performed a completion medial meniscectomy and debridement of the posterior medial osteophytes. We then placed the lamina rug dyer helper medially and performed a completion lateral meniscectomy and debridement of the posterolateral osteophytes. A 6 mm spacer block actually fit very nicely and was very symmetric with varus and valgus stress testing in both flexion and extension. We then exposed the proximal tibia sized for a #4 tibial tray, which was pinned into position followed by the reamer and the broach, and then the trial was placed, and then the trial femoral component was placed. Brought to medial extension, everted the patella, and then performed a patellar osteotomy. Drilled the lug holes, placed the trial, and flexed the knee, and the patellofemoral tracking was anatomic. However, she has some excessively tight PCL so I did release a little bit of the PCL with a Bovee and a small Al[place]renga elevator, and then I re- flexed the knee and the rollback was no longer extremely tight and she had good range of motion in flexion. I then removed all of the trial components and placed Exparel on the subperiosteal tissues around the distal femur and the proximal tibia. Then, Marzena Norman, mixed the cement on the back table as I prepared the bony surfaces for cementing. She was also critical to the success of this difficult procedure by helping with the appropriate amount of soft tissue retraction, help to flex and extend the knee several teams, and was necessary for me to perform the operation smooth, efficiently, and safely. She also helped prepare the cement, helped to close the wound, amongst many other tasks. Once all of the bony surfaces were thoroughly irrigated and dried, I cemented the tibial tray, removed excess cement, and placed the polyethylene. I then cemented the femoral component, removed excess cement, brought the knee to extension, everted the patella, and cemented the patellar button; held it with a clamp, removed excess cement, and held this position until the cement hardened. As we were waiting, we copiously pulsatile lavaged and irrigated out the knee joint again as we did several times throughout the surgery. We then placed tranexamic acid within the depths of the knee joint, closed the apex of the arthrotomy with two #1 Vicryl sutures and the medial parapatellar area was closed with a #1 PDS suture and then a #1 double-arm STRATAFIX in a running fashion was used to close the capsule. We then released the tourniquet, irrigated between layers, closed the deep subdermal tissues with interrupted 2-0 PDS sutures, and skin was closed with carlos covered by Adaptic along with dry sterile bulky dressing. She was awakened from general endotracheal tube anesthesia after having tolerated the procedure well and then transferred to the recovery room in stable condition. There were no intraoperative complications. QING
[2020-07-08 07:33] LABS: HEMATOCRIT 33.5 % (36.0-47.0); HEMOGLOBIN 10.6 g/dl (12.0-15.5); MEAN CORPUSCULAR HEMOGLOBIN 28.6 pg (27.0-33.0); MEAN CORPUSCULAR HGB CONC 31.6 g/dl (32.0-36.5); MEAN CORPUSCULAR VOLUME 90.3 fl (80.0-96.0); PLATELET COUNT, AUTOMATED 246 10^3/uL (150-450); RED BLOOD COUNT 3.71 10^6/uL (4.00-5.40); WHITE BLOOD COUNT 16.1 10^3/uL (4.0-10.0)
[2020-07-08] MEDS: ADVAIR HFA 115/21MCG INHALER INH SCH (07:38)
[2020-07-08 08:06] LABS: BILIRUBIN,TOTAL 0.3 MG/DL (0.2-1.0); CALCIUM LEVEL 8.8 MG/DL (8.8-10.2); CREATININE FOR GFR 1.16 MG/DL (0.55-1.30); GLOMERULAR FILTRATION RATE 48.5 (>39); POTASSIUM SERUM 4.6 MEQ/L (3.5-5.1); TOTAL PROTEIN 5.6 GM/DL (6.4-8.2)
[2020-07-08] MEDS ORDERED: ESCITALOPRAM OXALATE 10 MG TAB (LEXAPRO) PO SCH (09:00)
[2020-07-08] MEDS ORDERED: ROSUVASTATIN 10 MG TAB (CRESTOR) PO SCH (09:00)
[2020-07-08] MEDS ORDERED: MOM 30ML SUSPENSION UDC PO SCH (09:00)
[2020-07-08] MEDS ORDERED: CEPHALEXIN 500 MG CAP PO ONE (09:00)
[2020-07-08] MEDS ORDERED: VITAMIN D 1,000 INTERNATIONAL UNITS TABLET PO SCH (09:00)
[2020-07-08] MEDS ORDERED: MIRALAX *UNIT DOSE* 17GM PACKET PO SCH (09:00)
[2020-07-08] MEDS ORDERED: OMEPRAZOLE 20 MG CAP PO SCH (09:00)
[2020-07-08] MEDS: PERCOCET 5MG/325MG TAB PO PRN (11:24)
--- NOTE | 2020-07-08 12:11 | IPNPDOC ---
Text Note Date of Service The patient was seen on 07/08/20. NOTE Subjective: Patient is a 74-year-old female with a PMHx of PE (2014, 2/2 Factor V Leiden mutation, on Xarelto), DLP, Hypothyroidism, Osteoporosis, Seasonal allergies, GERD / Hiatal hernia, who presented to [facility] for an elective left knee total arthroplasty with orthopedic surgery. Patient has received outpatient medical clearance from her primary care provider Tonja Mueller patient did not require any cardiac clearance. Hospital service was consulted for medical management post operatively Patient was seen and examined at the bedside. Patient has an uneventful evening. She denies any nausea, vomiting, chest pain, belly pain, diarrhea, or urinary discomfort. Has been working with physical therapy and will likely clear today. Objective: Vitals (See below) General: Lying in bed, no acute distress, comfortable, AAOx3 HEENT: NC, AT CVS: RRR, +S1S2 Lungs: Fair air entry b/l, -w/r/r Abdomen: Soft, ND, NT Extremities: L knee dressing noted (clean and not saturated), - Edema, - Calf tenderness Assessment and plan: Elective total left knee arthroplasty (POD#1) - Presented to [facility] for an elective orthopedic procedure - Has received outpatient medical clearance from her primary care provider, Tonja Mueller - Pain control, anticoagulation, and physical therapy at the direction of primary orthopedic team PE (2014, 2/2 Factor V Leiden mutation) - Will resume anticoagulation as per orthopedic surgery; likely todya DLP - c/w Rosuvsatatin Hypothyroidism - c/w Levothyroxine Osteoporosis - c/w Vitamin D Seasonal allergies Mood disorder - c/w Escitalopram GERD / Hiatal hernia - c/w Omeprazole DVT prophylaxis - Anticoagulation as per primary orthopedic team Disposition: - Anticipate DC home today VS,Fishbone, I+O VS, Fishbone, I+O Laboratory Tests 07/08/20 07:15 07/08/20 07:16 Vital Signs Date Time Temp Pulse Resp B/P (MAP) Pulse Ox O2 Delivery O2 Flow Rate FiO2 07/08/20 11:24 18 07/08/20 06:00 97.8 71 94 Room Air 07/08/20 02:00 120/63 (82) 07/07/20 12:58 2 I&O- Last 24 Hours up to 6 AM 07/08/20 06:00 Intake Total 2410 ml Output Total 1120 ml Balance 1290 ml YAIMNI RODRIGES MD Jul 08, 2020 12:11
[2020-07-08] MEDS ORDERED: RIVAROXABAN 10 MG TAB (XARELTO) PO SCH (18:00)
--- NOTE | 2020-07-14 18:23 | DSES ---
DISCHARGE SUMMARY DATE OF ADMISSION: 07/07/2020 DATE OF DISCHARGE: 07/08/2020 ADMISSION DIAGNOSIS: Osteoarthritis, left knee. OTHER DIAGNOSES: 1. Elevated cholesterol. 2. Hypothyroidism. 3. Gastroesophageal reflux disease. 4. Osteoporosis. 5. Seasonal allergies. 6. Factor V mutation. DISCHARGE DIAGNOSIS: Osteoarthritis left knee, status post left total knee arthroplasty. OPERATIVE PROCEDURE: Left total knee arthroplasty. HISTORY OF PRESENT ILLNESS: This is a 74-year-old female patient with progressively worsening left knee pain and stiffness. She failed to improve with conservative management. She was admitted for elective knee replacement on the left side. HOSPITAL COURSE: The patient was admitted on the day of surgery and underwent a left total knee arthroplasty, which was uneventful. She did well in the postoperative period and her hospital course without complication. She was up with physical therapy per their protocol, and her pain was controlled. On the day of discharge, she was weightbearing as tolerated on the left lower extremity. DISCHARGE INSTRUCTIONS: She will use CITLALLI stockings for 30 days postoperative for DVT prophylaxis. She will also use Xarelto for DVT prophylaxis. She will resume her doses as recommended by her primary. She was on that prior to surgery. She will follow-up in our office in 10-14 days. She will presume her preoperative medications and diet. She will use [id number] pain medications for pain control. She was given instructions including, but not limited to wound monitoring and activity limitations. Please refer to the medical record for further details.
== END 2020-07-08 11:30 | disposition home or self-care (01) | DRG 470 ==
LOC: M OR 06:59 → M MS5PR 13:25
PROVIDERS: ADMIT Orthopaedic Surgery; ATTEND Orthopaedic Surgery
PROC: 0SRD0J9 Replacement of Left Knee Joint with Synthetic Substitute, Cemented, Open Approach (ICD-10-PCS; principal; 2020-07-07 10:00)
DX: M17.12 Unilateral primary osteoarthritis, left knee (principal); D68.2 Hereditary deficiency of other clotting factors; E78.00 Pure hypercholesterolemia, unspecified; E03.9 Hypothyroidism, unspecified; K21.9 Gastro-esophageal reflux disease without esophagitis; M81.0 Age-related osteoporosis without current pathological fracture; R26.89 Other abnormalities of gait and mobility; J30.2 Other seasonal allergic rhinitis; K44.9 Diaphragmatic hernia without obstruction or gangrene; F39 Unspecified mood [affective] disorder; Z98.1 Arthrodesis status; Z96.651 Presence of right artificial knee joint; Z87.891 Personal history of nicotine dependence; Z88.1 Allergy status to other antibiotic agents; Z88.8 Allergy status to other drugs, medicaments and biological substances; Z79.01 Long term (current) use of anticoagulants; Z79.891 Long term (current) use of opiate analgesic; Z79.899 Other long term (current) drug therapy; Z90.49 Acquired absence of other specified parts of digestive tract; Z86.711 Personal history of pulmonary embolism

== ENCOUNTER 2020-08-31 15:37 | Emergency (ER) | payer MEDICARE, BC, OTHER ==
[~2020-08-31] VITALS: Ht 157.5 cm; Wt 66.7 kg
[~2020-08-31 15:37] MED LIST changes: -ACETAMINOPHEN 500 MG TAB PO ONE; +ESCI10TA16 PO; -ESCI10TA2 PO; -LR 1,000 ML IV ONE; +TIZA4TAB4 PO; -ceFAZolin SOD 2 GM in IV 1 EA IV ONE
--- OUTSIDE RECORDS SUMMARY | 2020-08-31 15:43 | CCD | Continuity of Care Document ---
Author Author Reta Cardenas M.D. Organization Unknown Address [address] [facility] [address] [place] [address] Phone [phone] Care Team Providers Care Chocolate Finisher Name Role Phone Tonja Cardenas MD AUTM [phone] Riaz Parisi DO AUTM [phone] Ledy Funes NP AUTM [phone] Trina Weber MD AUTM [phone] Fritz Gorman MD AUTM Unavailable Ajay Izquierdo MD AUTM [phone] Problems Active Problems Provider Date Benign essential hypertension Tonja Cardenas M.D. Onset: 06/06/2011 Abnormal glucose level Tonja Cardenas M.D. Onset: 2010 Pure hypercholesterolemia Tonja Cardenas M.D. Onset: Osteoarthritis Tonja Cardenas M.D. Onset: 1 Asthma without status asthmaticus Tonja Cardenas M.D. On set: 06/06/2011 Allergic rhinitis Tonja Cardenas M.D. Onset: 1 Essential hypertension Tonja Cardenas M.D. Onset: 2014 Hypothyroidism Tonja Cardenas M.D. Onset: 7 Osteopenia Tonja Cardenas M.D. Onset: 7 Exacerbation of asthma Tonja Cardenas M.D. Onset: 05/31/ 2018 Total replacement of right knee joint Terri Barker Onset: 02/29/2020 Social History Type Date Description Comments Sex Unknown ETOH Use Rarely consumes alcohol Tobacco Use Start: Unknown End: Unknown Patient is a former smoker Q35Y/O, 10PK/YRDocument: 12/07/10 - History Allergies, Adverse Reactions, Alerts Active Allergies Reaction Severity Comments Date Sporanox Hives 06/08/2011 Medications Active Medications SIG Qnty Indications Ordering Provide r Date Cyclobenzaprine HCL 5mg Tablets take 1-2 tablet by mouth bid prn 60tabs Tonja Cardenas M.D. 08/05/2020 Albuterol Sulfate HFA 108(90Base) mcg/Act Aerosol inhale 2 puffs by mouth four times daily as needed 25.5units Tonja Cardenas M.D. 05/19/2020 Levoxyl 25mcg Tablets 1 by mouth every day on a empty stomach 90tabs Tonja Cardenas M.D. 05/14 Xarelto 15mg Tablets take 1 tablet daily with food 90tabs Tonja Cardenas M.D. 03/05/20 20 Ondansetron HCL 4mg Tablets 1 tablet every 6 hours as needed for nausea or vomiting 30tabs Tonja Cardenas M.D. 03/04/2020 Famotidine 20mg Tablets 1 by mouth twice a day 180tabs Tonja Cardenas M.D. 01/09/20 20 Vitamin D3 25mcg (1000 Ut) Capsule s 1 by mouth every day Tonja Cardenas M.D. 10/24/19 [address] 1 by mouth every day 90caps Tonja Cardenas M.D. 04/26/20 19 Escitalopram Oxalate 10mg Tablets Take 1 Tablet By Mouth Every Day 90tabs Terri Barker 03/15/2019 Rosuvastatin Calcium 5mg Tablets take one tablet by mouth every day 90tabs Terri Barker 04/27/2018 Nebulizer Device as p rescribed dx asthma Tonja Cardenas M.D. 01/12/2018 Zyrtec Allergy 10mg Tablets 1 by mouth every day 90tabs Tonja Cardenas M.D. 05/03/20 17 Preparation H 0.25-14-74.9% Ointment prn Tonja Cardenas M.D. 02/02/2016 TENS prn Tonja Cardenas M.D. 1 09/17/2013 Transport Chair [facility] [place] for ambulatory dysfunction. 1units Tonja Cardenas M.D. 05/29/2012 Fluticasone Propionate 50mcg/Act Suspension 1 sprays each nostril bid 3units Tonja villar M.D. 02/10/2012 Nebulizer Kit/Tubing/Mouthpiece K it use as directed 4units J45.909 Tonja Cardenas M.D. 12/08/19 12 Advair Diskus 250-50mcg/Dose Aeros ol 1 inhalation b.i.D. Naatly 3unTerri Li 12/08/2011 Albuterol Sulfate (2 .5mg/3ML) 0.083% Nebulizer 1 qid prn J45.909 put on file 1Box Tonja Cardenas M.D. 12/08/2011 Tramadol HCL 50mg Tablets 1 four times a day by mouth as needed pain 120tabs Gianluca Barker 12/07/2010 Medications Administered in Office Medication SIG Qnty Indications Ordering Provider Date Administration Of Flu Vaccine Inj ection Tonja Cardenas M.D. 06/11/20 15 Immunizations CPT Code Status Date Vaccine Lot # U-Flu Given 05/17/2019 Influenza,Unspecified U-PneuC Given 05/20/2018 Prevnar 13 U-Flu Given 05/20/2018 Influenza,Unspecified [id number] Given 02/09/2018 Shingrix 33837 Given 12/09/2017 Shingrix [id number] Given 06/14/2017 Adacel- Tetanus Diphtheria P ertussis (Age64 & Under) [id number] U-Flu Given 06/03/2017 Influenza,Unspecified U-PneuC Given 11/27/2015 Prevnar 13 [id number] Given 06/11/2015 Fluvirin Virus Vaccine [id number] 01 44766 Given 04/25/2013 Zoster Vaccine [id number] 56591 Given 05/30/2008 Influenza Virus Vaccine 93625 Given 06/27/2007 Pneumovax 23 38352 Given 05/29/2007 Influenza Virus Vaccine 85265 Given 05/31/2002 Influenza Virus Vaccine 76385 Given 06/23/2001 Influenza Virus Vaccine Vital Signs Date Vital Result Comment 08/05/2020 8:43am BP Systolic 106 mmHg RT Arm BP Diastolic 68 mmHg RT Arm Heart Rate 96 /min Height 60.25 inches 5'0.25" Weight 153.00 lb BMI (Body Mass Index) 29.6 kg/m2 06/26/2020 10:04am BP Systolic 122 mmHg RT Arm BP Diastolic 72 mmHg RT Arm Heart Rate 94 /min Height 60.25 inches 5'0.25" Weight 156.50 lb O2 % BldC Oximetry 99 % RM Air BMI (Body Mass Index) 30.3 kg/m2 Results Test Acquired Date Facility Test Result H/L Range Note Liver Function Profile 07/02/2020 [facility], Skip Loader: Dr Ramírez Nascimento [place], [place] [id number] [phone] Alk. Phosphatase 152 mg/dL High 46 - 116 Total Bilirubin 0.8 mg/dL 0.2 - 1.0 Ast (Sgot) 55 U/L High 15 - 37 Alt (SGPT) 96 U/L High 78 Albumin 4.1 g/dL 3.4 - 5.0 Total Protein 7.9 g/dL 6.4 - 8.2 Direct Bilirubin 0.2 mg/dL High 0.0 - 0.2 A/G Ratio 1.08 CALC 1.00 - 1.90 Liver Function Profile 06/26/2020 [facility], Skip Loader: Dr Ramírez N[address]imento [place], [place] [id number] [phone] Alk. Phosphatase 136 mg/dL High 46 - 116 Total Bilirubin 0.8 mg/dL 0.2 - 1.0 Ast (Sgot) 62 U/L High 15 - 37 Alt (SGPT) 103 U/L High - 78 Albumin 3.7 g/dL 3.4 - 5.0 Total Protein 6.8 g/dL 6.4 - 8.2 Direct Bilirubin 0.2 mg/dL 0.0 - 0.2 A/G Ratio 1.19 CALC 1.00 - 1.90 Prothrombin Time/Inr 06/23/2020 [facility] enter [address] [place] [address] [phone] Prothrombin Time 18.2 seconds High 12.5-14.3 Inr 1.48 Normal 1 Comprehensive Metabolic Profil 06/23/2020 [facility] [address] [place] [address] [phone] Glucose, Fasting 115 mg/dL High 70-100 Blood Urea Nitrogen 17 mg/dL Normal 7-18 Creatinine For GFR 1.24 mg/dL Normal 0.55-1.30 Glomerular Filtration Rate 44.9 Normal >39 2 Sodium Level 139 mEq/L Normal 136-145 Potassium Serum 5.2 mEq/L High 3.5-5.1 Chloride Level 107 mEq/L Normal 98-107 Carbon Dioxide Level 28 mEq/L Normal 21-32 Anion Gap 4 mEq/L Low 8-16 Calcium Level 9.5 mg/dL Normal 8.8-10.2 Ast/Sgot 60 U/L High 7-37 Alt/SGPT 100 U/L High 12-78 Alkaline Phosphatase 134 U/L High 45-117 Bilirubin,Total 0.7 mg/dL Normal 0.2-1.0 Total Protein 6.9 GM/DL Normal 6.4-8.2 Albumin 3.7 GM/DL Normal 3.2-5.2 Albumin/Globulin Ratio 1.2 Normal 1.2-2.2 Complete Blood Count 06/23/2020 [facility] enter [address] [place] [address] [phone] White Blood Count 8.8 10 Normal 4.0-10.0 Red Blood Count 4.91 10 Normal 4.00-5.40 Hemoglobin 13.7 g/dL Normal 12.0-15.5 Hematocrit 44.5 % Normal 36.0-47.0 Mean Corpuscular Volume 90.6 fl Normal 80.0-96.0 Mean Corpuscular Hemoglobin 27.9 pg Normal 27.0-33.0 Mean Corpuscular HGB Conc 30.8 g/dL Low 32.0-36.5 Red Cell Distribution Width 13.2 % Normal 11.5-14.5 Platelet Count, Automated 329 10 Normal 150-450 Nucleated Red Blood Cell % 0.0 % Normal 0-0 Laboratory test finding 06/23/2020 [facility] [address] [place] [address] [phone] Erythrocyte Sedimentation Rate 25 mm/hr Normal 0 -30 Comprehensive Chem Profile 05/13/2020 [facility] ryan Skip Loader: [address] [place] [address] [phone] Glucose 105 mg/dL High 74 - 99 3 BUN 21 mg/dL High 7 - 18 Creatinine 1.2 mg/dL 0.6 - 1.3 Sodium 140 mEq/L 136 - 145 Potassium 4.1 mEq/L 3.5 - 5.1 Chloride 103 mEq/L 98 - 107 Carbon Dioxide 26 mEq/L 21 - 32 Calcium 8.7 mg/dL 8.5 - 10.1 Alk. Phosphatase 116 mg/dL 46 - 116 Total Bilirubin 0.9 mg/dL 0.2 - 1.0 Ast (Sgot) 34 U/L 15 - 37 Alt (SGPT) 59 U/L 12 - 78 Albumin 3.7 g/dL 3.4 - 5.0 Total Protein 7.2 g/dL 6.4 - 8.2 A/G Ratio 1.06 CALC 1.00 - 1.90 GFR 44 mL/min Low >60 GFR 53 mL/min Low >60 4 Laboratory test finding 05/13/2020 [facility] shemar quinonez Skip Loader: [address] [place] [address] [phone] Thyroid Stimulating Hormone 6.74 uIU/mL High 0.3 6 - 3.74 Complete Blood Count 05/13/2020 [facility] shemar perez Skip Loader: [address] [place] [address] [phone] WBC 8.8 x10*3/UL 4.1 - 10.9 RBC 4.75 x10*6/UL 4.20 - 6.30 Hemoglobin 13.7 g/dL 12.0 - 18.0 Hematocrit 40.1 % 37.0 - 51.0 MCV 84.4 fL 80.0 - 97.0 MCH 29.0 pg 26.0 - 32.0 MCHC 34.3 g/dL 31.0 - 38.0 RDW 13.2 % 11.6 - 13.7 PLT 338 x10*3/UL 140 - 440 MPV 7.6 FL Low 7.8 - 11.0 Lymph % 16.0 % 10.0 - 58.5 Mid % 4.3 % 1.7 - 9.3 Neut % 79.7 % 37.0 - 92.0 Lymph # 1.4 x10*3/UL 0.6 - 4.1 Mid # 0.4 x10*3/UL 0.1 - 0.6 Neut # 7.0 x10*3/UL 2.0 - 7.8 Complete Blood Count 04/07/2020 [facility] Skip Loader: Dr Ramírez Nascimento [place] [id number] [phone] WBC 8.5 x10*3/UL 4.1 - 10.9 RBC 5.00 x10*6/UL 4.20 - 6.30 Hemoglobin 14.4 g/dL 12.0 - 18.0 Hematocrit 42.8 % 37.0 - 51.0 MCV 85.5 fL 80.0 - 97.0 MCH 28.9 pg 26.0 - 32.0 MCHC 33.8 g/dL 31.0 - 38.0 RDW 13.3 % 11.6 - 13.7 PLT 361 x10*3/UL 140 - 440 MPV 8.3 FL 7.8 - 11.0 Lymph % 19.5 % 10.0 - 58.5 Mid % 5.7 % 1.7 - 9.3 Neut % 74.8 % 37.0 - 92.0 Lymph # 1.6 x10*3/UL 0.6 - 4.1 Mid # 0.5 x10*3/UL 0.1 - 0.6 Neut # 6.4 x10*3/UL 2.0 - 7.8 Laboratory test finding 04/07/2020 [facility] Skip Loader: [address] [place] [address] [phone] Magnesium 2.0 mg/dL 1.8 - 2.4 Comprehensive Chem Profile 04/07/2020 [facility] ryan Skip Loader: [address] [place] [address] [phone] Glucose 106 mg/dL High 74 - 99 5 BUN 18 mg/dL 7 - 18 Creatinine 1.3 mg/dL 0.6 - 1.3 Sodium 140 mEq/L 136 - 145 Potassium 5.1 mEq/L 3.5 - 5.1 Chloride 102 mEq/L 98 - 107 Carbon Dioxide 27 mEq/L 21 - 32 Calcium 9.5 mg/dL 8.5 - 10.1 Alk. Phosphatase 104 mg/dL 46 - 116 Total Bilirubin 1.0 mg/dL 0.2 - 1.0 Ast (Sgot) 37 U/L 15 - 37 Alt (SGPT) 52 U/L 12 - 78 Albumin 4.0 g/dL 3.4 - 5.0 Total Protein 7.3 g/dL 6.4 - 8.2 A/G Ratio 1.21 CALC 1.00 - 1.90 GFR 40 mL/min Low >60 GFR 48 mL/min Low >60 6 Laboratory test finding 04/07/2020 [facility] shemar Friedman Skip Loader: [address] [place] [address] [phone] Thyroid Stimulating Hormone 1.02 uIU/mL 0.3 6 - 3.74 Comprehensive Chem Profile 03/04/2020 [facility] shemar Vásquez Skip Loader: [address] [place] [address] [phone] Glucose 99 mg/dL 74 - 99 7 BUN 17 mg/dL 7 - 18 Creatinine 1.4 mg/dL High 0.6 - 1.3 Sodium 140 mEq/L 136 - 145 Potassium 4.3 mEq/L 3.5 - 5.1 Chloride 103 mEq/L 98 - 107 Carbon Dioxide 26 mEq/L 21 - 32 Calcium 8.2 mg/dL Low 8.5 - 10.1 8 Alk. Phosphatase 115 mg/dL 46 - 116 Total Bilirubin 0.8 mg/dL 0.2 - 1.0 Ast (Sgot) 32 U/L 15 - 37 Alt (SGPT) 47 U/L 12 - 78 Albumin 3.4 g/dL 3.4 - 5.0 Total Protein 6.5 g/dL 6.4 - 8.2 A/G Ratio 1.10 CALC 1.00 - 1.90 GFR 37 mL/min Low >60 GFR 44 mL/min Low >60 9 Complete Blood Count 03/04/2020 [facility] Skip Loader: [address] [place] [address] [phone] WBC 12.6 x10*3/UL High 4.1 - 10.9 10 RBC 4.45 x10*6/UL 4.20 - 6.30 Hemoglobin 12.8 g/dL 12.0 - 18.0 Hematocrit 37.7 % 37.0 - 51.0 MCV 84.7 fL 80.0 - 97.0 MCH 28.7 pg 26.0 - 32.0 MCHC 33.9 g/dL 31.0 - 38.0 RDW 13.4 % 11.6 - 13.7 PLT 411 x10*3/UL 140 - 440 MPV 8.0 FL 7.8 - 11.0 Lymph % 10.9 % 10.0 - 58.5 Mid % 3.3 % 1.7 - 9.3 Neut % 85.8 % 37.0 - 92.0 Lymph # 1.3 x10*3/UL 0.6 - 4.1 Mid # 0.5 x10*3/UL 0.1 - 0.6 Neut # 10.8 x10*3/UL High 2.0 - 7.8 Basic Metabolic Panel 02/25/2020 [facility] Skip Loader: [address] [place] [address] [phone] Glucose 128 mg/dL High 74 - 99 11 BUN 17 mg/dL 7 - 18 Creatinine 1.4 mg/dL High 0.6 - 1.3 Sodium 143 mEq/L 136 - 145 Potassium 4.1 mEq/L 3.5 - 5.1 Chloride 105 mEq/L 98 - 107 Carbon Dioxide 27 mEq/L 21 - 32 Calcium 9.2 mg/dL 8.5 - 10.1 GFR 37 mL/min Low >60 GFR 44 mL/min Low >60 12 Liver Function Profile 02/25/2020 [facility] Skip Loader: [address] [place] [address] [phone] Alk. Phosphatase 132 mg/dL High 46 - 116 Total Bilirubin 0.8 mg/dL 0.2 - 1.0 Ast (Sgot) 63 U/L High 15 - 37 Alt (SGPT) 107 U/L High 12 - 78 13 Albumin 3.9 g/dL 3.4 - 5.0 Total Protein 7.0 g/dL 6.4 - 8.2 Direct Bilirubin 0.2 mg/dL High 0.0 - 0.2 A/G Ratio 1.26 CALC 1.00 - 1.90 Prothrombin Time/Inr 02/20/2020 [facility] enter [address] [place] [id number] [phone] Prothrombin Time 18.9 seconds High 11.8-14.0 Inr 1.61 Normal 14 Comprehensive Metabolic Profil 02/20/2020 [place] [id number] [place] [address] [phone] Glucose, Fasting 108 mg/dL High 70-100 Blood Urea Nitrogen 15 mg/dL Normal 7-18 Creatinine For GFR 1.46 mg/dL High 0.55-1.30 Glomerular Filtration Rate 37.2 Low >39 1 5 Sodium Level 141 mEq/L Normal 136-145 Potassium Serum 3.8 mEq/L Normal 3.5-5.1 Chloride Level 108 mEq/L High 98-107 Carbon Dioxide Level 24 mEq/L Normal 21-32 Anion Gap 9 mEq/L Normal 8-16 Calcium Level 9.7 mg/dL Normal 8.8-10.2 Ast/Sgot 66 U/L High 7-37 Alt/SGPT 100 U/L High 12-78 Alkaline Phosphatase 132 U/L High 45-117 Bilirubin,Total 0.6 mg/dL Normal 0.2-1.0 Total Protein 7.0 GM/DL Normal 6.4-8.2 Albumin 3.8 GM/DL Normal 3.2-5.2 Albumin/Globulin Ratio 1.2 Normal 1.2-2.2 Complete Blood Count 02/20/2020 [facility] enter [address] [place] [address] [phone] White Blood Count 8.7 10 Normal 4.0-10.0 Red Blood Count 5.04 10 Normal 4.00-5.40 Hemoglobin 14.4 g/dL Normal 12.0-15.5 Hematocrit 44.4 % Normal 36.0-47.0 Mean Corpuscular Volume 88.1 fl Normal 80.0-96.0 Mean Corpuscular Hemoglobin 28.6 pg Normal 27.0-33.0 Mean Corpuscular HGB Conc 32.4 g/dL Normal 32.0-36.5 Red Cell Distribution Width 14.0 % Normal 11.5-14.5 Platelet Count, Automated 304 10 Normal 150-450 Nucleated Red Blood Cell % 0.0 % Normal 0-0 Laboratory test finding 02/20/2020 [facility] [address] [place] [address] [phone] Erythrocyte Sedimentation Rate 18 mm/hr Normal 0 -30 Hepatitis Profile 02/20/2020 [facility] nter [address] [place] [address] [phone] Hepatitis C Virus Rosi Index 0.1 INDEX Normal <0.8 16 Hepatitis B Surface Antigen NEGATIVE Normal Negative Hepatitis B Core Antibody Igm NEGATIVE Normal Negative Hepatitis A Antibody Igm NEGATIVE Normal Negative Basic Metabolic Panel 02/20/2020 [facility] Skip Loader: [address] [place] [address] [phone] Glucose 106 mg/dL High 74 - 99 17 BUN 14 mg/dL 7 - 18 Creatinine 1.5 mg/dL High 0.6 - 1.3 Sodium 144 mEq/L 136 - 145 Potassium 4.2 mEq/L 3.5 - 5.1 Chloride 106 mEq/L 98 - 107 Carbon Dioxide 24 mEq/L 21 - 32 Calcium 10.0 mg/dL 8.5 - 10.1 GFR 34 mL/min Low >60 GFR 41 mL/min Low >60 18 Complete Blood Count 02/11/2020 [facility] Skip Loader: [address] [place] [address] [phone] WBC 8.7 x10*3/UL 4.1 - 10.9 RBC 4.89 x10*6/UL 4.20 - 6.30 Hemoglobin 13.9 g/dL 12.0 - 18.0 Hematocrit 41.6 % 37.0 - 51.0 MCV 85.0 fL 80.0 - 97.0 MCH 28.5 pg 26.0 - 32.0 MCHC 33.5 g/dL 31.0 - 38.0 RDW 13.3 % 11.6 - 13.7 PLT 339 x10*3/UL 140 - 440 MPV 8.1 FL 7.8 - 11.0 Lymph % 17.7 % 10.0 - 58.5 Mid % 5.6 % 1.7 - 9.3 Neut % 76.7 % 37.0 - 92.0 Lymph # 1.5 x10*3/UL 0.6 - 4.1 Mid # 0.5 x10*3/UL 0.1 - 0.6 Neut # 6.7 x10*3/UL 2.0 - 7.8 Basic Metabolic Panel 02/11/2020 [facility] Skip Loader: [address] [place] [address] [phone] Glucose 96 mg/dL 74 - 99 19 BUN 17 mg/dL 7 - 18 Creatinine 1.6 mg/dL High 0.6 - 1.3 Sodium 142 mEq/L 136 - 145 Potassium 3.9 mEq/L 3.5 - 5.1 Chloride 103 mEq/L 98 - 107 Carbon Dioxide 24 mEq/L 21 - 32 Calcium 7.8 mg/dL Low 8.5 - 10.1 20 GFR 31 mL/min Low >60 GFR 38 mL/min Low >60 21 A1c 02/11/2020 [facility] Skip Loader: [address] [place] [address] [phone] Hba1c 5.9 g/dL High 4.8 - 5.6 22 Est Avg Glucose 123 mg/dL High 60 - 110 1 THERAPUTIC HUMAN INR VALUES INDICATIONS NORMAL RANGES PROPHYLAXIS/TREATMENT OF: VENOUS THROMBOSIS 2.0-3.0 PULMONARY EMBOLISM 2.0-3.0 PREVENTION OF SYSTEMIC EMBOLISM FROM: TISSUE HEART VALVES 2.0-3.0 ACUTE MYOCARDIAL INFARCTION 2.0-3.0 VALVULAR HEART DISEASE 2.0-3.0 ATRIAL FIBRILLATION 2.0-3.0 MECHANICAL VALVES(HIGH RISK) 2.5-3.5 RECURRENT MYOCARDIAL INFARCTION 2.5-3.5 2 Units are mL/min/1.73 m2 Chronic Kidney Disease Staging per NKF: Stage I & II GFR >=60 Normal to Mildly Decreased Stage III GFR 30-59 Moderately Decreased Stage IV GFR 15-29 Severely Decreased Stage V GFR <15 Very Little GFR Left ESRD GFR <15 on COCOA ROASTER 3 100-125 mg/dL PRE-DIABET ES/FASTING >126 mg/dL DIABETES/FASTING 4 CHRONIC KIDNEY DISEASE STAGI NG PER NKF STAGE I & II GFR >= 60 NORMAL TO MILDLY DECREASED STAGE III GFR 30-59 MODERATELY DECREASED STAGE IV GFR 15-29 SEVERELY DECREASED STAGE V GFR <15 VERY LITTLE GFR LEFT ESRD GFR <15 ON COCOA ROASTER 5 100-125 mg/dL PRE-DIABET ES/FASTING >126 mg/dL DIABETES/FASTING 6 CHRONIC KIDNEY DISEASE STAGI NG PER NKF STAGE I & II GFR >= 60 NORMAL TO MILDLY DECREASED STAGE III GFR 30-59 MODERATELY DECREASED STAGE IV GFR 15-29 SEVERELY DECREASED STAGE V GFR <15 VERY LITTLE GFR LEFT ESRD GFR <15 ON COCOA ROASTER 7 100-125 mg/dL PRE-DIABET ES/FASTING >126 mg/dL DIABETES/FASTING 8 NOTE: RESULT VERIFIED. 9 CHRONIC KIDNEY DISEASE STAGI NG PER NKF STAGE I & II GFR >= 60 NORMAL TO MILDLY DECREASED STAGE III GFR 30-59 MODERATELY DECREASED STAGE IV GFR 15-29 SEVERELY DECREASED STAGE V GFR <15 VERY LITTLE GFR LEFT ESRD GFR <15 ON COC[employer] ROASTER 10 NOTE: CBC VERIFIED 11 100-125 mg/dL PRE-DIABET ES/FASTING >126 mg/dL DIABETES/FASTING 12 CHRONIC KIDNEY DISEASE STAGI NG PER NKF STAGE I & II GFR >= 60 NORMAL TO MILDLY DECREASED STAGE III GFR 30-59 MODERATELY DECREASED STAGE IV GFR 15-29 SEVERELY DECREASED STAGE V GFR <15 VERY LITTLE GFR LEFT ESRD GFR <15 ON C[employer] ROASTER 13 NOTE: RESULT VERIFIED. 14 THERAPUTIC HUMAN INR VALUES INDICATIONS NORMAL RANGES PROPHYLAXIS/TREATMENT OF: VENOUS THROMBOSIS 2.0-3.0 PULMONARY EMBOLISM 2.0-3.0 PREVENTION OF SYSTEMIC EMBOLISM FROM: TISSUE HEART VALVES 2.0-3.0 ACUTE MYOCARDIAL INFARCTION 2.0-3.0 VALVULAR HEART DISEASE 2.0-3.0 ATRIAL FIBRILLATION 2.0-3.0 MECHANICAL VALVES(HIGH RISK) 2.5-3.5 RECURRENT MYOCARDIAL INFARCTION 2.5-3.5 15 Units are mL/min/1.73 m2 Chronic Kidney Disease Staging per NKF: Stage I & II GFR >=60 Normal to Mildly Decreased Stage III GFR 30-59 Moderately Decreased Stage IV GFR 15-29 Severely Decreased Stage V GFR <15 Very Little GFR Left ESRD GFR <15 on COC[facility] ROASTER 16 Negative Not infected with HCV, unless recent infection is suspected or other evidence exists to indicate HCV infection. 17 100-125 mg/dL PRE-DIABET ES/FASTING >126 mg/dL DIABETES/FASTING 18 CHRONIC KIDNEY DISEASE STAGI NG PER NKF STAGE I & II GFR >= 60 NORMAL TO MILDLY DECREASED STAGE III GFR 30-59 MODERATELY DECREASED STAGE IV GFR 15-29 SEVERELY DECREASED STAGE V GFR <15 VERY LITTLE GFR LEFT ESRD GFR <15 ON C[employer] ROASTER 19 100-125 mg/dL PRE-DIABET ES/FASTING >126 mg/dL DIABETES/FASTING 20 NOTE: RESULT VERIFIED. 21 CHRONIC KIDNEY DISEASE STAGI NG PER NKF STAGE I & II GFR >= 60 NORMAL TO MILDLY DECREASED STAGE III GFR 30-59 MODERATELY DECREASED STAGE IV GFR 15-29 SEVERELY DECREASED STAGE V GFR <15 VERY LITTLE GFR LEFT ESRD GFR <15 ON COCOA ROASTER 22 Lab Result Notes: Pre-Diabetes 5.7 - 6.4 % Diabetes = or > 6.5% Procedures Date Code Description Status 09/14/2019 [id number] Mammogram Completed 09/04/2019 [id number] Bone Mineral Density Test [facility] 06/01/2018 [id number] Mammogram Completed 04/26/2017 [id number] Bone Mineral Density Test [facility] 04/26/2017 [id number] Mammogram Completed 12/25/2015 [id number] Mammogram Completed 09/04/2015 [id number] Colonoscopy Completed 08/21/2014 [id number] Mammogram Completed 01/02/2014 [id number] Diabetic Retinal Eye Exam [facility] 08/14/2013 [id number] Mammogram Completed 03/28/2012 [id number] Colonoscopy Completed 01/14/2011 [id number] Mammogram Completed 01/13/2011 [id number] Bone Mineral Density Test [facility] 04/25/2007 [id number] Bone Mineral Density Test [facility] 11/17/2006 [id number] Mammogram Completed Medical Devices Description No Information Available Encounters Type Date Location Provider Dx Diagnosis Office Visit 06/26/2020 10:00a [facility] Z01.810 Encounter for preprocedural cardiovascular examination M17.12 Unilateral primary osteoarth ritis, left knee R74.01 Elevation of levels of liver transaminase levels I12.9 Hypertensive chronic kidney disease w stg 1-4/unsp chr kdny N18.30 Chronic kidney disease, stag e 3 unspecified I26.99 Other pulmonary embolism wit hout acute cor pulmonale M81.0 Age-related osteoporosis w/o current pathological fracture K21.9 Gastro-esophageal reflux dis ease without esophagitis J45.909 Unspecified asthma, uncompli cated F41.9 Anxiety disorder, unspecifie d M19.90 Unspecified osteoarthritis, unspecified site Office Visit 05/13/2020 9:00a [facility] M[facility] R42 Dizziness and giddiness J30.9 Allergic rhinitis, unspecifi ed J45.909 Unspecified asthma, uncompli cated R07.81 Pleurodynia R74.0 Nonspec elev of levels of tr ansamns & lactic acid dehydrgnse I12.9 Hypertensive chronic kidney disease w stg 1-4/unsp chr kdny N18.3 Chronic kidney disease, stag e 3 (moderate) I26.99 Other pulmonary embolism wit hout acute cor pulmonale Z79.01 alf (current) use of a nticoagulants M81.0 Age-related osteoporosis w/o current pathological fracture F41.9 Anxiety disorder, unspecifie d E03.9 Hypothyroidism, unspecified Office Visit 04/07/2020 11:15a [facility] quinone[facility] M.D. J30.9 Allergic rhinitis, unspecifi ed I12.9 Hypertensive chronic kidney disease w stg 1-4/unsp chr kdny N18.3 Chronic kidney disease, stag e 3 (moderate) I26.99 Other pulmonary embolism wit hout acute cor pulmonale Z79.01 alf (current) use of a nticoagulants M81.0 Age-related osteoporosis w/o current pathological fracture E03.9 Hypothyroidism, unspecified F41.9 Anxiety disorder, unspecifie d Office Visit 03/04/2020 10:00a [facility] M25.561 Pain in right knee R74.0 Nonspec elev of levels of tr ansamns & lactic acid dehydrgnse I12.9 Hypertensive chronic kidney disease w stg 1-4/unsp chr kdny N18.3 Chronic kidney disease, stag e 3 (moderate) I26.99 Other pulmonary embolism wit hout acute cor pulmonale Z79.01 alf (current) use of a nticoagulants M81.0 Age-related osteoporosis w/o current pathological fracture J45.909 Unspecified asthma, uncompli cated F41.9 Anxiety disorder, unspecifie d F32.89 Other specified depressive e pisodes E03.9 Hypothyroidism, unspecified G47.00 Insomnia, unspecified Office Visit 02/21/2020 10:00a [facility] M.D. Z01.810 Encounter for preprocedural cardiovascular examination M17.11 Unilateral primary osteoarth ritis, right knee I12.9 Hypertensive chronic kidney disease w stg 1-4/unsp chr kdny N18.3 Chronic kidney disease, stag e 3 (moderate) I26.99 Other pulmonary embolism wit hout acute cor pulmonale Office Visit 02/11/2020 10:30a [facility] M.[facility]. M81.0 Age-related osteoporosis w/o current pathological fracture I26.99 Other pulmonary embolism wit hout acute cor pulmonale Z79.01 alf (current) use of a nticoagulants J45.909 Unspecified asthma, uncompli cated G47.00 Insomnia, unspecified F41.9 Anxiety disorder, unspecifie d R73.09 Other abnormal glucose K21.9 Gastro-esophageal reflux dis ease without esophagitis M17.12 Unilateral primary osteoarth ritis, left knee Assessments Date Code Description Provider 07/02/2020 R74.01 Elevation of levels of liver tra nsaminase levels Tonja Cardenas M.D. 07/02/2020 R74.01 Elevation of levels of liver tra nsaminase levels Lab Schedule 06/26/2020 Z01.810 Encounter for preprocedural card iovascular examination Tonja Cardenas M.D. 06/26/2020 M17.12 Unilateral primary osteoarthriti s, left knee Tonja Cardenas M.D. 06/26/2020 R74.01 Elevation of levels of liver tra nsaminase levels Tonja Cardenas M.D. 06/26/2020 I12.9 Hypertensive chronic kidney disease with stage 1 through stage 4 chronic kidney disease, or unspecified chronic kidney disease Tonja Cardenas M.D. 06/26/2020 N18.30 Chronic kidney disease, stage 3 unspecified Tonja Cardenas M.D. 06/26/2020 I26.99 Other pulmonary embolism without acute cor pulmonale Tonja Cardenas M.D. 06/26/2020 M81.0 Age-related osteoporosis without current pathological fracture Tonja Cardenas M.D. 06/26/2020 K21.9 Gastro-esophageal reflux disease without esophagitis Tonja Cardenas M.D. 06/26/2020 J45.909 Unspecified asthma, uncomplicate d Tonja Cardenas M.D. 06/26/2020 F41.9 Anxiety disorder, unspecified Margarita Cardenas M.D. 06/26/2020 M19.90 Unspecified osteoarthritis, unsp ecified site Tonja Cardenas M.D. 05/13/2020 R42 Dizziness and giddiness Tonja Cardenas M.D. 05/13/2020 J30.9 Allergic rhinitis, unspecified J jesica Cardenas M.D. 05/13/2020 J45.909 Unspecified asthma, uncomplicate d Tonja Cardenas M.D. 05/13/2020 R07.81 Pleurodynia Tonja ruiz M.D. 05/13/2020 R74.0 Nonspecific elevatio n of levels of transaminase and lactic acid dehydrogenase [LDH] Tonja Cardenas M.D. 05/13/2020 I12.9 Hypertensive chronic kidney disease with stage 1 through stage 4 chronic kidney disease, or unspecified chronic kidney disease Tonja Cardenas M.D. 05/13/2020 N18.3 Chronic kidney disease, stage 3 (moderate) Tonja Cardenas M.D. 05/13/2020 I26.99 Other pulmonary embolism without acute cor pulmonale Tonja Cardenas M.D. 05/13/2020 Z79.01 alf (current) use of antic oagulants Tonja Cardenas M.D. 05/13/2020 M81.0 Age-related osteoporosis without current pathological fracture Tonja Cardenas M.D. 05/13/2020 F41.9 Anxiety disorder, unspecified Margarita Cardenas M.D. 05/13/2020 E03.9 Hypothyroidism, unspecified Sharon Cardenas M.D. 04/07/2020 J30.9 Allergic rhinitis, unspecified J jesica Cardenas M.D. 04/07/2020 I12.9 Hypertensive chronic kidney disease with stage 1 through stage 4 chronic kidney disease, or unspecified chronic kidney disease Tonja Cardenas M.D. 04/07/2020 N18.3 Chronic kidney disease, stage 3 (moderate) Tonja Cardenas M.D. 04/07/2020 I26.99 Other pulmonary embolism without acute cor pulmonale Tonja Cardenas M.D. 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 04/07/2020 M81.0 Age-related osteoporosis without current pathological fracture Tonja Cardenas M.D. 04/07/2020 E03.9 Hypothyroidism, unspecified Sharon Cardenas M.D. 04/07/2020 F41.9 Anxiety disorder, unspecified Margarita Cardenas M.D. 03/04/2020 M25.561 Pain in right knee Tonja rider M.D. 03/04/2020 R74.0 Nonspecific elevatio n of levels of transaminase and lactic acid dehydrogenase [LDH] Tonja Cardenas M.D. 03/04/2020 I12.9 Hypertensive chronic kidney disease with stage 1 through stage 4 chronic kidney disease, or unspecified chronic kidney disease Tonja Cardenas M.D. 03/04/2020 N18.3 Chronic kidney disease, stage 3 (moderate) Tonja Cardenas M.D. 03/04/2020 I26.99 Other pulmonary embolism without acute cor pulmonale Tonja Cardenas M.D. 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 03/04/2020 M81.0 Age-related osteoporosis without current pathological fracture Tonja Cardenas M.D. 03/04/2020 J45.909 Unspecified asthma, uncomplicate d Tonja Cardenas M.D. 03/04/2020 F41.9 Anxiety disorder, unspecified Margarita Cardenas M.D. 03/04/2020 F32.89 Other specified depressive episo merly Tonja Cardenas M.D. 03/04/2020 E03.9 Hypothyroidism, unspecified Sharon Cardenas M.D. 03/04/2020 G47.00 Insomnia, unspecified Tonja peacock M.D. 02/25/2020 R74.0 Nonspecific elevatio n of levels of transaminase and lactic acid dehydrogenase [LDH] Tonja Cardenas M.D. 02/25/2020 R74.0 Nonspecific elevatio n of levels of transaminase and lactic acid dehydrogenase [LDH] Lab Schedule 02/25/2020 I12.9 Hypertensive chronic kidney disease with stage 1 through stage 4 chronic kidney disease, or unspecified chronic kidney disease Tonja Cardenas M.D. 02/25/2020 I12.9 Hypertensive chronic kidney disease with stage 1 through stage 4 chronic kidney disease, or unspecified chronic kidney disease Lab Schedule 02/25/2020 N18.3 Chronic kidney disease, stage 3 (moderate) Tonja Cardenas M.D. 02/25/2020 N18.3 Chronic kidney disease, stage 3 (moderate) Lab Schedule 02/21/2020 Z01.810 Encounter for preprocedural card iovascular examination Tonja Cardenas M.D. 02/21/2020 M17.11 Unilateral primary osteoarthriti s, right knee Tonja Cardenas M.D. 02/21/2020 I12.9 Hypertensive chronic kidney disease with stage 1 through stage 4 chronic kidney disease, or unspecified chronic kidney disease Tonja Cardenas M.D. 02/21/2020 N18.3 Chronic kidney disease, stage 3 (moderate) Tonja Cardenas M.D. 02/21/2020 I26.99 Other pulmonary embolism without acute cor pulmonale Tonja Cardenas M.D. 02/20/2020 I12.9 Hypertensive chronic kidney disease with stage 1 through stage 4 chronic kidney disease, or unspecified chronic kidney disease Tonja Cardenas M.D. 02/20/2020 I12.9 Hypertensive chronic kidney disease with stage 1 through stage 4 chronic kidney disease, or unspecified chronic kidney disease Lab Schedule 02/20/2020 N18.3 Chronic kidney disease, stage 3 (moderate) Tonja Cardenas M.D. 02/20/2020 N18.3 Chronic kidney disease, stage 3 (moderate) Lab Schedule 02/11/2020 M81.0 Age-related osteoporosis without current pathological fracture Tonja Cardenas M.D. 02/11/2020 I26.99 Other pulmonary embolism without acute cor pulmonale Tonja Cardenas M.D. 02/11/2020 Z79.01 alf (current) use of antic oagulants Tonja Cardenas M.D. 02/11/2020 J45.909 Unspecified asthma, uncomplicate d Tonja Cardenas M.D. 02/11/2020 G47.00 Insomnia, unspecified Tonja peacock M.D. 02/11/2020 F41.9 Anxiety disorder, unspecified Margarita Cardenas M.D. 02/11/2020 R73.09 Other abnormal glucose Tonja Cardenas M.D. 02/11/2020 K21.9 Gastro-esophageal reflux disease without esophagitis Tonja Cardenas M.D. 02/11/2020 M17.12 Unilateral primary osteoarthriti s, left knee Tonja Cardenas M.D. Plan of Treatment 08/05/2020 - Tonja Cardenas M.D.* All * New Medication:* Cyclobenzaprine HCL 5 mg - take 1-2 tablet by mouth bid prn Functional Status Description No Information Available Mental Status Description No Information Available Referrals Description No Information Available
--- OUTSIDE RECORDS SUMMARY | 2020-08-31 15:44 | CCD | Continuity of Care Document ---
Author Author Reta Cardenas M.D. Organization Unknown Address [address] [facility] [address] [place] [address] Phone [phone] Care Team Providers Care Burial Needs Salesperson Name Role Phone Tonja Cardenas MD AUTM [phone] Riaz Parisi DO AUTM [phone] Ledy Funes NP AUTM [phone] Trina Weber MD AUTM [phone] Fritz Gorman MD AUTM Unavailable Ajay Izquierdo MD AUTM [phone] Problems Active Problems Provider Date Benign essential [...] SIG Qnty Indications Ordering Provide r Date Albuterol Sulfate HFA 108(90Base) mcg/Act Aerosol inhale [...] day 90caps Tonja Cardenas M.D. 04/26/20 19 Tizanidine HCL 4mg Tablets take 1 to 2 tablets by mouth 2-3x/d as needed 90tabs Tonja jett M.D. 03/30/2019 Escitalopram Oxalate 10mg Tablets Take 1 Tablet [...] Tonja Cardenas M.D. 1 09/17/2013 Transport [facility] ambulatory dysfunction. 1units Tonja Cardenas M.D. 05/29/2012 Fluticasone Propionate 50mcg/Act Suspension 1 sprays each nostril bid 3units Tonja villar M.D. 02/10/2012 Nebulizer Kit/Tubing/Mouthpiece K it use as directed 4units J45.909 Tonja Cardenas M.D. 12/08/19 12 Advair Diskus 250-50mcg/Dose Aeros ol 1 inhalation b.i.D. Nataly 3unTerri Li 12/08/2011 Albuterol Sulfate (2 .5mg/3ML) 0.083% Nebulizer 1 qid prn J45.909 put on file 1Box Tonja Cardenas M.D. 12/08/2011 Tramadol HCL 50mg Tablets 1 four times a day by mouth as needed pain 120tabs Gianluca Mars 12/07/2010 Medications Administered in Office Medication SIG Qnty Indications Ordering Provider Date Administration Of Flu Vaccine Inj ection Tonja Cardenas M.D. 06/11/20 15 Immunizations CPT Code Status Date Vaccine Lot # U-Flu Given 05/17/2019 Influenza,Unspecified U-PneuC Given 05/20/2018 Prevnar 13 U-Flu Given 05/20/2018 Influenza,Unspecified [id number] Given 02/09/2018 Shingrix [id number] Given 12/09/2017 Shingrix 49944 Given 06/14/2017 Adacel- Tetanus Diphtheria P ertussis (Age64 & Under) [id number] U-Flu Given 06/03/2017 Influenza,Unspecified U-PneuC Given 11/27/2015 Prevnar 13 [id number] Given 06/11/2015 Fluvirin Virus Vaccine [id number] 01 61410 Given 04/25/2013 Zoster Vaccine [id number] Given 05/30/2008 Influenza Virus Vaccine 02057 Given 06/27/2007 Pneumovax 23 08222 Given 05/29/2007 Influenza Virus Vaccine 80379 Given 05/31/2002 Influenza Virus Vaccine 07534 Given 06/23/2001 Influenza Virus Vaccine Vital Signs Date Vital Result Comment 06/26/2020 10:04am BP Systolic 122 mmHg RT Arm BP Diastolic 72 mmHg RT Arm Heart Rate 94 /min Height 60.25 inches 5'0.25" Weight 156.50 lb O2 % BldC Oximetry 99 % RM Air BMI (Body Mass Index) 30.3 kg/m2 05/13/2020 8:54am BP Systolic 132 mmHg RT Arm BP Diastolic 70 mmHg RT Arm Heart Rate 117 /min Height 60.25 inches 5'0.25" Weight 155.00 lb O2 Saturation Level with Exercise 92 % RM Air BMI (Body Mass Index) 30.0 kg/m2 Results Test Acquired Date Facility Test Result H/L Range Note Liver Function Profile 07/02/2020 [place] [facility], [employer] [employer] Contractor: Dr [place] [address] [phone] Alk. Phosphatase 152 mg/dL High 46 - 116 Total Bilirubin 0.8 mg/dL 0.2 - 1.0 Ast (Sgot) 55 U/L High 15 - 37 Alt (SGPT) 96 U/L High 12 - 78 Albumin 4.1 g/dL 3.4 - 5.0 Total Protein 7.9 g/dL 6.4 - 8.2 Direct Bilirubin 0.2 mg/dL High 0.0 - 0.2 A/G Ratio 1.08 CALC 1.00 - 1.90 Liver Function Profile 06/26/2020 [place] [facility], [employer] Contractor: Dr Ramírez [place] [address] [phone] Alk. Phosphatase 136 mg/dL High 46 - 116 Total Bilirubin 0.8 mg/dL 0.2 - 1.0 Ast (Sgot) 62 U/L High 15 - 37 Alt (SGPT) 103 U/L High 12 - 78 Albumin 3.7 g/dL 3.4 - 5.0 Total Protein 6.8 g/dL 6.4 - 8.2 Direct Bilirubin 0.2 mg/dL 0.0 - 0.2 A/G Ratio 1.19 CALC 1.00 - 1.90 Prothrombin Time/Inr 06/23/2020 [facility] enter [address] [place] [address] [phone] Prothrombin Time 18.2 seconds High 12.5-14.3 Inr 1.48 Normal 1 Comprehensive Metabolic Profil 06/23/2020 [address] [place] [address] [phone] Glucose, Fasting 115 mg/dL High 70-100 Blood [...] 1.2 Normal 1.2-2.2 Complete Blood Count 06/23/2020 [facility] enter [address] [place] [address] [phone] White Blood Count 8.8 10 Normal 4.0-10.0 [...] % Normal 0-0 Laboratory test finding 06/23/2020 [facility] [address] [place] [address] [phone] Erythrocyte Sedimentation Rate 25 mm/hr Normal 0 -30 Comprehensive Chem Profile 05/13/2020 [place] [facility] she[facility] ryan [employer] Contractor: Dr Ramírez [place] [address] [phone] Glucose 105 mg/dL High 74 - 99 [...] Low >60 4 Laboratory test finding 05/13/2020 [place] [facility] Filler shemar quinonez [employer] Contractor: Dr Ramírez [place] [address] [phone] Thyroid Stimulating Hormone 6.74 uIU/mL High 0.3 6 - 3.74 Complete Blood Count 05/13/2020 [place] [facility] Technician shemar perez [employer] Contractor: Dr Ramírez [place] [address] [phone] WBC 8.8 x10*3/UL 4.1 - 10.9 RBC [...] 2.0 - 7.8 Complete Blood Count 04/07/2020 [place] [facility] [employer] Contractor: Dr Ramírez [place] [address] [phone] WBC 8.5 x10*3/UL 4.1 - 10.9 RBC [...] 2.0 - 7.8 Laboratory test finding 04/07/2020 [place] [facility] cristiano, [employer] Heating Contractor: Dr Ramírez [place] [address] [phone] Magnesium 2.0 mg/dL 1.8 - 2.4 Comprehensive Chem Profile 04/07/2020 [place] [facility] Marito ryan [employer] Contractor: Dr Ramírez Nascimento [place], [place] [id number] [phone] Glucose 106 mg/dL High 74 - 99 [...] Low >60 6 Laboratory test finding 04/07/2020 [place] shemar Friedman [employer] Contractor: Dr Ramírez [place] [address] [phone] Thyroid Stimulating Hormone 1.02 uIU/mL 0.3 6 - 3.74 Comprehensive Chem Profile 03/04/2020 [facility] shemar Vásquez [employer] Contractor: Dr Ramírez [place] [address] [phone] Glucose 99 mg/dL 74 - 99 7 [...] Low >60 9 Complete Blood Count 03/04/2020 [facility] [employer] Contractor: Dr Ramírez [place] [address] [phone] WBC 12.6 x10*3/UL High 4.1 - 10.9 [...] 2.0 - 7.8 Basic Metabolic Panel 02/25/2020 [facility] [employer] Contractor: Dr Ramírez [place] [address] [phone] Glucose 128 mg/dL High 74 - 99 [...] Low >60 12 Liver Function Profile 02/25/2020 [facility] [employer] Contractor: Dr Ramírez [place] [address] [phone] Alk. Phosphatase 132 mg/dL High 46 - 116 Total Bilirubin 0.8 mg/dL 0.2 - 1.0 Ast (Sgot) 63 U/L High 15 - 37 Alt (SGPT) 107 U/L High 12 - 78 13 Albumin 3.9 g/dL 3.4 - 5.0 Total Protein 7.0 g/dL 6.4 - 8.2 Direct Bilirubin 0.2 mg/dL High 0.0 - 0.2 A/G Ratio 1.26 CALC 1.00 - 1.90 Prothrombin Time/Inr 02/20/2020 [facility] [address] [place] [address] [phone] Prothrombin Time 18.9 seconds High 11.8-14.0 Inr 1.61 Normal 14 Comprehensive Metabolic Profil 02/20/[address] [address] [phone] Glucose, Fasting 108 mg/dL High 70-100 Blood [...] 1.2 Normal 1.2-2.2 Complete Blood Count 02/20/2020 [address] [place] [address] [phone] White Blood Count 8.7 10 Normal 4.0-10.0 [...] % Normal 0-0 Laboratory test finding 02/20/2020 [facility] [address] [place] [address] [phone] Erythrocyte Sedimentation Rate 18 mm/hr Normal 0 -30 Hepatitis Profile 02/20/2020 [facility] nter [address] [place] [address] [phone] Hepatitis C Virus Rosi Index 0.1 INDEX Normal <0.8 16 Hepatitis B Surface Antigen NEGATIVE Normal Negative Hepatitis B Core Antibody Igm NEGATIVE Normal Negative Hepatitis A Antibody Igm NEGATIVE Normal Negative Basic Metabolic Panel 02/20/2020 [facility] [employer] Contractor: Dr Ramírez [place] [address] [phone] Glucose 106 mg/dL High 74 - 99 [...] Low >60 18 Complete Blood Count 02/11/2020 [place] [facility] [employer] Contractor: Dr Ramírez [place] [address] [phone] WBC 8.7 x10*3/UL 4.1 - 10.9 RBC [...] 2.0 - 7.8 Basic Metabolic Panel 02/11/2020 [facility], [facility] [employer] He[employer] Contractor: Dr Ramírez Nascimento [place] [address] [phone] Glucose 96 mg/dL 74 - 99 19 [...] 38 mL/min Low >60 21 A1c 02/11/2020 [facility] , [employer]umbing [employer] Heating Contractor: Dr Ramírez Nascimento [place] [address] [phone] Hba1c 5.9 g/dL High 4.8 - 5.6 22 Est Avg Glucose 123 mg/dL High 60 - 110 Basic Metabolic Panel 01/08/2020 [facility], Plumbing [employer] Heating Contractor: Dr aRmírez [place]asc[place] [address] [phone] Glucose 130 mg/dL High 74 - 99 23 BUN 15 mg/dL 7 - 18 Creatinine 1.1 mg/dL 0.6 - 1.3 Sodium 144 mEq/L 136 - 145 Potassium 5.2 mEq/L High 3.5 - 5.1 24 Chloride 106 mEq/L 98 - 107 Carbon Dioxide 27 mEq/L 21 - 32 Calcium 9.4 mg/dL 8.5 - 10.1 GFR 48 mL/min Low >60 GFR 59 mL/min Low >60 25 1 THERAPUTIC HUMAN INR VALUES INDICATIONS NORMAL [...] Little GFR Left ESRD GFR <15 on PRECISION GRINDER 3 100-125 mg/dL PRE-DIABET ES/FASTING >126 mg/dL DIABETES/FASTING 4 CHRONIC KIDNEY DISEASE STAGI NG PER NKF STAGE I & II GFR >= 60 NORMAL TO MILDLY DECREASED STAGE III GFR 30-59 MODERATELY DECREASED STAGE IV GFR 15-29 SEVERELY DECREASED STAGE V GFR <15 VERY LITTLE GFR LEFT ESRD GFR <15 ON PRECISION GRINDER 5 100-125 mg/dL PRE-DIABET ES/FASTING >126 mg/dL DIABETES/FASTING 6 CHRONIC KIDNEY DISEASE STAGI NG PER NKF STAGE I & II GFR >= 60 NORMAL TO MILDLY DECREASED STAGE III GFR 30-59 MODERATELY DECREASED STAGE IV GFR 15-29 SEVERELY DECREASED STAGE V GFR <15 VERY LITTLE GFR LEFT ESRD GFR <15 ON PRECISION GRINDER 7 100-125 mg/dL PRE-DIABET ES/FASTING >126 mg/dL DIABETES/FASTING 8 NOTE: RESULT VERIFIED. 9 CHRONIC KIDNEY DISEASE STAGI NG PER NKF STAGE I & II GFR >= 60 NORMAL TO MILDLY DECREASED STAGE III GFR 30-59 MODERATELY DECREASED STAGE IV GFR 15-29 SEVERELY DECREASED STAGE V GFR <15 VERY LITTLE GFR LEFT ESRD GFR <15 ON PRECISION GRINDER 10 NOTE: CBC VERIFIED 11 100-125 mg/dL PRE-DIABET ES/FASTING >126 mg/dL DIABETES/FASTING 12 CHRONIC KIDNEY DISEASE STAGI NG PER NKF STAGE I & II GFR >= 60 NORMAL TO MILDLY DECREASED STAGE III GFR 30-59 MODERATELY DECREASED STAGE IV GFR 15-29 SEVERELY DECREASED STAGE V GFR <15 VERY LITTLE GFR LEFT ESRD GFR <15 ON PRECISION GRINDER 13 NOTE: RESULT VERIFIED. 14 THERAPUTIC HUMAN [...] Little GFR Left ESRD GFR <15 on PRECISION GRINDER 16 Negative Not infected with HCV, unless [...] LITTLE GFR LEFT ESRD GFR <15 ON PRECISION GRINDER 19 100-125 mg/dL PRE-DIABET ES/FASTING >126 mg/dL DIABETES/FASTING 20 NOTE: RESULT VERIFIED. 21 CHRONIC KIDNEY DISEASE STAGI NG PER NKF STAGE I & II GFR >= 60 NORMAL TO MILDLY DECREASED STAGE III GFR 30-59 MODERATELY DECREASED STAGE IV GFR 15-29 SEVERELY DECREASED STAGE V GFR <15 VERY LITTLE GFR LEFT ESRD GFR <15 ON PRECISION GRINDER 22 Lab Result Notes: Pre-Diabetes 5.7 - 6.4 % Diabetes = or > 6.5% 23 100-125 mg/dL PRE-DIABET ES/FASTING >126 mg/dL DIABETES/FASTING 24 NOTE: RESULT VERIFIED. NO VISIBLE HEMOLYSIS. 25 CHRONIC KIDNEY DISEASE STAGI NG PER NKF STAGE I & II GFR >= 60 NORMAL TO MILDLY DECREASED STAGE III GFR 30-59 MODERATELY DECREASED STAGE IV GFR 15-29 SEVERELY DECREASED STAGE V GFR <15 VERY LITTLE GFR LEFT ESRD GFR <15 ON PRECISION GRINDER Procedures Date Code Description Status 01/15/2020 75856 Spirometry Completed 09/14/2019 [id number] Mammogram Completed 09/04/2019 [id number] Bone Mineral Density Test [facility] 06/01/2018 [id number] Mammogram Completed 04/26/2017 [id number] Bone Mineral Density Test [facility] 04/26/2017 [id number] Mammogram Completed 12/25/2015 [id number] Mammogram Completed 09/04/2015 [id number] Colonoscopy Completed 08/21/2014 [id number] Mammogram Completed 01/02/2014 [id number] Diabetic Retinal Eye Exam [facility] 08/14/2013 [id number] Mammogram Completed 03/28/2012 [id number] Colonoscopy Completed 01/14/2011 [id number] Mammogram Completed 01/13/2011 [id number] Bone Mineral Density Test [facility] 04/25/2007 [id number] Bone Mineral Density Test [facility] 11/17/2006 [id number] Mammogram Completed Medical Devices Description No Information Available Encounters Type Date Location Provider Dx Diagnosis Office Visit 06/26/2020 10:00a [place] [facility] M[facility] Z01.810 Encounter for preprocedural cardiovascular examination [...] osteoarthritis, unspecified site Office Visit 05/13/2020 9:00a [place] [facility] quinone[facility] M.D. R42 Dizziness and giddiness J30.9 Allergic rhinitis, unspecifi ed J45.909 Unspecified asthma, uncompli cated R07.81 Pleurodynia R74.0 Nonspec elev of levels of tr ansamns & lactic acid dehydrgnse I12.9 Hypertensive chronic kidney disease w stg 1-4/unsp chr kdny N18.3 Chronic kidney disease, stag e 3 (moderate) I26.99 Other pulmonary embolism wit hout acute cor pulmonale Z79.01 FDC (current) use of a nticoagulants M81.0 Age-related osteoporosis w/o current pathological fracture F41.9 Anxiety disorder, unspecifie d E03.9 Hypothyroidism, unspecified Office Visit 04/07/2020 11:15a [place] [facility] quinone[facility] M.D. J30.9 Allergic rhinitis, unspecifi ed I12.9 Hypertensive chronic kidney disease w stg 1-4/unsp chr kdny N18.3 Chronic kidney disease, stag e 3 (moderate) I26.99 Other pulmonary embolism wit hout acute cor pulmonale Z79.01 FDC (current) use of a nticoagulants M81.0 Age-related osteoporosis w/o current pathological fracture E03.9 Hypothyroidism, unspecified F41.9 Anxiety disorder, unspecifie d Office Visit 03/04/2020 10:00a [place] [facility] quin[facility] M.D. 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 Z01.810 Encounter for preprocedural cardiovascular examination M17.11 Unilateral primary osteoarth ritis, right knee I12.9 Hypertensive chronic kidney disease w stg 1-4/unsp chr kdny N18.3 Chronic kidney disease, stag e 3 (moderate) I26.99 Other pulmonary embolism wit hout acute cor pulmonale Office Visit 02/11/2020 10:30a [place] [facility] quin[facility] M.D. 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 06/26/2020 F41.9 Anxiety disorder, unspecified Ju jim Cardenas M.D. 06/26/2020 M19.90 Unspecified osteoarthritis, unsp [...] cor pulmonale Tonja Cardenas M.D. 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 03/04/2020 Z79.01 FDC (current) use of antic oagulants Tonja Cardenas [...] cor pulmonale Tonja Cardenas M.D. 02/11/2020 Z79.01 FDC (current) use of antic oagulants Tonja Cardenas M.D. 02/11/2020 J45.909 Unspecified asthma, uncomplicate d Tonja Cardenas M.D. 02/11/2020 G47.00 Insomnia, unspecified Tonja peacock M.D. 02/11/2020 F41.9 Anxiety disorder, unspecified Margarita Cardenas M.D. 02/11/2020 R73.09 Other abnormal glucose Tonja Cardenas M.D. 02/11/2020 K21.9 Gastro-esophageal reflux disease without esophagitis Tonja Cardenas M.D. 02/11/2020 M17.12 Unilateral primary osteoarthriti s, left knee Tonja Cardenas M.D. 01/15/2020 J45.909 Unspecified asthma, uncomplicate d Jana Spain,[facility] 01/08/2020 R73.09 Other abnormal glucose Tonja Cardenas M.D. 01/08/2020 R73.09 Other abnormal glucose Lab Sched ule Plan of Treatment Future Appointment(s):* 07/22/2020 9:15 am - Ton[facility] at [facility] 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 GERD. Some breakthrough symptoms. She is on the Omeprazole, Famotidine. Taking Tums as needed.16. Health Maintenance. She had her flu shot. Functional Status Description No Information Available Mental Status Description No Information Available Referrals Description No Information Available
--- OUTSIDE RECORDS SUMMARY | 2020-08-31 15:44 | CCD | Continuity of Care Document ---
Author Author Reta DOHERTY PA-C Organization Unknown Address [address] [address] Phone [phone] Care Team Providers Care Plumber'S Helper Name Role Phone Tonja Cardenas MD [facility] [phone] Problems Active Problems Provider Date Pure hypercholesterolemia Onset: 016 Social History Type Date Description Comments Sex Unknown ETOH Use Denies alcohol use Tobacco Use Start: Unknown End: Unknown Patient is a former smoker Allergies, Adverse Reactions, Alerts Active Allergies Reaction Severity Comments Date Sporanox 10/16/2015 Clarithromycin 11/14/2015 Medications Active Medications SIG Qnty Indications Ordering Provide r Date Bactroban 2% Ointment apply a pea sized amount to nasal passages three times a day x 5d before surgery QS Kaleb Izquierdo MD 06/12/2020 Hibiclens 4% Liquid use in shower once daily for 5 days before surgery 1units Kaleb avila MD 06/12/2020 Simvastatin 20mg Tablets 1 by mouth every day Unknown Advair Diskus Aerosol 2 puffs every day Unknown Lexapro 5mg Tablets 1 by mouth every day Unknown Flonase Allergy Relief 50mcg/Act Suspension 1 puff every day Unknown Escitalopram Oxalate 5mg/5ML Solution Unknown Levothyroxine Sodium 100mcg Soluti on Rec take 1 tab by mouth daily. Unknown Omeprazole 10mg Capsules DR Unknown Tramadol HCL 50mg Tablets 1 every 4-6 hours as needed pain 20tabs Kaleb Izquierdo MD Famotidine 20mg Tablets Unknown Rosuvastatin Calcium 5mg Tablets Unknown Xarelto 15mg Tablets 1 by mouth every day Unknown History Medications Acetaminophen-Codeine #3 300-30mg Tablets take 1-2 tablets every 8 hours as needed for pain 21tabs Kaleb Izquierdo MD 03/14/2020 - 05/06/2020 Bactroban 2% Ointment apply a pea sized amount to nasal passages three times a day x 5d before surgery QS Kaleb Izquierdo MD 02/13/2020 - 05/06/2020 Hibiclens 4% Liquid use in shower once daily for 5 days before surgery 1units Kaleb avila MD 02/13/2020 - 05/06/2020 Immunizations Description No Information Available Vital Signs Date Vital Result Comment 07/02/2020 8:58am BP Systolic 124 mmHg BP Diastolic 80 mmHg Heart Rate 75 /min Body Temperature 96.8 F Height 61 inches 5'1" Weight 155.50 lb BMI (Body Mass Index) 29.4 kg/m2 Respiratory Rate 14 /min 05/07/2020 1:42pm Body Temperature 97.5 F Height 60.75 inches 5'0.75" Weight 149.50 lb BMI (Body Mass Index) 28.5 kg/m2 Results Test Acquired Date Facility Test Result H/L Range Note Prothrombin Time/Inr 06/23/2020 [facility] entr [address] [place] [address] (315)- - Prothrombin Time 18.2 seconds High 12.5-14.3 Inr 1.48 Normal 1 Comprehensive Metabolic Profil 06/23/[address] [address] (315)- - Glucose, Fasting 115 mg/dL High 70-100 Blood [...] 1.2 Normal 1.2-2.2 Complete Blood Count 06/23/2020 [facility] entr [address] [place] [address] (123)- - White Blood Count 8.8 10 Normal 4.0-10.0 [...] % Normal 0-0 Laboratory test finding 06/23/2020 [facility] [address] [place] [address] (492)- - Erythrocyte Sedimentation Rate 25 mm/hr Normal 0-30 Order 05/08/2020 [facility] nter Surgery <pending> Lab Results 02/25/2020 N2N/CCD Import Glucose 128 mg/dL High 74-99 3 BUN 17 mg/dL 7-18 Creatinine 1.4 mg/dL High 0.6-1.3 Sodium 143 mEq/L 136-145 Potassium 4.1 mEq/L 3.5-5.1 Chloride 105 mEq/L 98-107 Carbon Dioxide 27 mEq/L 21-32 Calcium 9.2 mg/dL 8.5-10.1 GFR 37 mL/min Low GFR 44 mL/min Low 4 Liver Function Profile 02/25/2020 N2N/CCD Import Alk. Phosphatase 132 mg/dL High 46-116 Total Bilirubin 0.8 mg/dL 0.2-1.0 Ast (Sgot) 63 U/L High 15-37 Alt (SGPT) 107 U/L High 12-78 5 Albumin 3.9 g/dL 3.4-5.0 Total Protein 7.0 g/dL 6.4-8.2 Direct Bilirubin 0.2 mg/dL High 0.0-0.2 A/G Ratio 1.26 CALC 1.00-1.90 Prothrombin Time/Inr 02/20/2020 [facility] [address] [place] [address] (315)- - Prothrombin Time 18.9 seconds High 11.8-14.0 Inr 1.61 Normal 6 Comprehensive Metabolic Profil 02/20/2020 [facility] [place] [id number] [place] [address] (315)- - Glucose, Fasting 108 mg/dL High 70-100 Blood Urea Nitrogen 15 mg/dL Normal 7-18 Creatinine For GFR 1.46 mg/dL High 0.55-1.30 Glomerular Filtration Rate 37.2 Low >39 7 Sodium Level 141 mEq/L Normal 136-145 Potassium [...] 1.2 Normal 1.2-2.2 Complete Blood Count 02/20/2020 [facility] [address] [place] [address] (315)- - White Blood Count 8.7 10 Normal 4.0-10.0 [...] % Normal 0-0 Laboratory test finding 02/20/2020 [facility] l Centr [address] [place] [address] (315)- - Erythrocyte Sedimentation Rate 18 mm/hr Normal 0-30 Order 01/16/2020 [facility] Medical [facility] nter Surgery <pending> 1 THERAPUTIC HUMAN INR VALUES INDICATIONS NORMAL [...] Little GFR Left ESRD GFR <15 on TELE RN 3 100-125 mg/dL PRE-DIABET ES/FASTING >126 mg/dL DIABETES/FASTING 4 CHRONIC KIDNEY DISEASE STAGI NG PER NKF STAGE I & II GFR >= 60 NORMAL TO MILDLY DECREASED STAGE III GFR 30-59 MODERATELY DECREASED STAGE IV GFR 15-29 SEVERELY DECREASED STAGE V GFR <15 VERY LITTLE GFR LEFT ESRD GFR <15 ON TELE RN 5 NOTE: RESULT VERIFIED. 6 THERAPUTIC HUMAN INR VALUES INDICATIONS NORMAL RANGES PROPHYLAXIS/TREATMENT OF: VENOUS THROMBOSIS 2.0-3.0 PULMONARY EMBOLISM 2.0-3.0 PREVENTION OF SYSTEMIC EMBOLISM FROM: TISSUE HEART VALVES 2.0-3.0 ACUTE MYOCARDIAL INFARCTION 2.0-3.0 VALVULAR HEART DISEASE 2.0-3.0 ATRIAL FIBRILLATION 2.0-3.0 MECHANICAL VALVES(HIGH RISK) 2.5-3.5 RECURRENT MYOCARDIAL INFARCTION 2.5-3.5 7 Units are mL/min/1.73 m2 Chronic Kidney Disease Staging per NKF: Stage I & II GFR >=60 Normal to Mildly Decreased Stage III GFR 30-59 Moderately Decreased Stage IV GFR 15-29 Severely Decreased Stage V GFR <15 Very Little GFR Left ESRD GFR <15 on TELE RN Procedures Date Code Description Status 07/07/2020 40640 Arthroplasty "Total Knee" Medial & Lateral W/ Or W/O Patella Resu Completed 07/07/2020 07828 Arthroplasty "Total Knee" Medial & Lateral W/ Or W/O Patella Resu Completed 04/09/2020 95867 X-Ray Knee Ap & Lateral W/Obliqu es Three Views Completed 02/27/2020 32831 Arthroplasty "Total Knee" Medial & Lateral W/ Or W/O Patella Resu Completed 02/27/2020 21549 Arthroplasty "Total Knee" Medial & Lateral W/ Or W/O Patella Resu Completed Medical Devices Description No Information Available Encounters Type Date Location Provider Dx Diagnosis Office Visit 07/02/2020 8:[place]a [place] PA-C M1 7.12 Unilateral primary osteoarthritis, left knee Assessments Date Code Description Provider 07/07/2020 M17.12 Unilateral primary osteoarthriti s, left knee Marzena Doherty PA-C 07/07/2020 M17.12 Unilateral primary osteoarthriti s, left knee Kaleb Izquierdo MD 07/02/2020 M17.12 Unilateral primary osteoarthriti s, left knee Adin Herring PA-C 05/07/2020 M17.12 Unilateral primary osteoarthriti s, left knee DRamon Izquierdo MD 04/09/2020 Z47.1 Aftercare following joint replac ement surgery Adin Herring PA-C 04/09/2020 Z96.651 Presence of right artificial kne e joint Adin Herring PA-C 03/12/2020 Z47.1 Aftercare following joint replac ement surgery Adin Herring PA-C 03/12/2020 Z96.651 Presence of right artificial kne e joint Adin Herring PA-C 02/27/2020 M17.11 Unilateral primary osteoarthriti s, right knee Jana Pearce PA-C 02/27/2020 M17.11 Unilateral primary osteoarthriti s, right knee Kaleb Izquierdo MD 02/25/2020 Z01.818 Encounter for other preprocedura l examination Marzena Doherty PA-C 02/25/2020 M17.11 Unilateral primary osteoarthriti s, right knee Marzena Doherty PA-C Plan of Treatment Future Appointment(s):* 07/22/2020 8:45 am - Kaleb Izquierdo MD at [place] Functional Status Description No Information Available Mental Status Description No Information Available Referrals Refer to Dr Reason for Referral Status Appt Date Adin Herring PA-C SURGERY NO AUTH REQUIRED FOR TOTAL LEFT KNEE([id number]) TO SURGERY NT Created [address] [place], [place] [address] [phone] Adin Herring PA-C SURGERY NO AUTH REQUIRED FOR TOTAL LEFT KNEE([id number]) TO SURGERY NT Created [address] [place] [address] [phone]
--- OUTSIDE RECORDS SUMMARY | 2020-08-31 15:44 | CCD | Continuity of Care Document ---
Author Author Reta HERRING PA-C Organization Unknown Address [address] [address] Phone [phone] Care Team Providers Care Computer Network Specialist Name Role Phone Tonja Cardenas MD [facility] [phone] Problems Active Problems Provider Date Pure hypercholesterolemia [...] Result H/L Range Note Prothrombin Time/Inr 06/23/2020 [facility] entr [address] [place] [address] (315)- - Prothrombin Time 18.2 seconds High 12.5-14.3 Inr 1.48 Normal 1 Comprehensive Metabolic Profil 06/23/[address] [address] (315)- - Glucose, Fasting 115 mg/dL High [...] 1.2 Normal 1.2-2.2 Complete Blood Count 06/23/2020 [facility] entr [address] [place] [address] (091)- - White Blood Count 8.8 10 Normal [...] % Normal 0-0 Laboratory test finding 06/23/2020 [facility] Cent[facility] [address] [place] [address] (315)- - Erythrocyte Sedimentation Rate 25 mm/hr Normal 0-30 Order 05/08/2020 [facility] nter Surgery <pending> Lab Results 02/25/2020 N2N/CCD [...] Ratio 1.26 CALC 1.00-1.90 Prothrombin Time/Inr 02/20/2020 [facility] [address] [place] [address] (315)- - Prothrombin Time 18.9 seconds High 11.8-14.0 Inr 1.61 Normal 6 Comprehensive Metabolic Profil 02/20/2020 [facility] [place] [place] [address] (315)- - Glucose, Fasting 108 mg/dL High [...] 1.2 Normal 1.2-2.2 Complete Blood Count 02/20/2020 [facility] [address] [place] [address] (315)- - White Blood Count 8.7 10 [...] % Normal 0-0 Laboratory test finding 02/20/2020 [facility] l Centr [address] [place] [address] (315)- - Erythrocyte Sedimentation Rate 18 mm/hr Normal 0-30 Order 01/16/2020 [facility] Medical [facility] nter Surgery <pending> 1 THERAPUTIC [...] Little GFR Left ESRD GFR <15 on UNCLAIMED PROPERTY OFFICER 3 100-125 mg/dL PRE-DIABET ES/FASTING >126 mg/dL DIABETES/FASTING 4 CHRONIC KIDNEY DISEASE STAGI NG PER NKF STAGE I & II GFR >= 60 NORMAL TO MILDLY DECREASED STAGE III GFR 30-59 MODERATELY DECREASED STAGE IV GFR 15-29 SEVERELY DECREASED STAGE V GFR <15 VERY LITTLE GFR LEFT ESRD GFR <15 ON UNCLAIMED PROPERTY OFFICER 5 NOTE: RESULT VERIFIED. 6 THERAPUTIC HUMAN [...] Little GFR Left ESRD GFR <15 on UNCLAIMED PROPERTY OFFICER Procedures Date Code Description Status 07/07/2020 18418 Arthroplasty "Total Knee" Medial & Lateral W/ Or W/O Patella Resu Completed 07/07/2020 87320 Arthroplasty "Total Knee" Medial & Lateral W/ Or W/O Patella Resu Completed 04/09/2020 31300 X-Ray Knee Ap & Lateral W/Obliqu es Three Views Completed 02/27/2020 89912 Arthroplasty "Total Knee" Medial & Lateral W/ Or W/O Patella Resu Completed 02/27/2020 04325 Arthroplasty "Total Knee" Medial & Lateral W/ Or W/O Patella Resu Completed Medical Devices Description No Information Available Encounters Type Date Location Provider Dx Diagnosis Office Visit 07/02/2020 8:45a [place] Herring PA-C Z0 1.818 Encounter for other preprocedural examination M17.12 Unilateral primary osteoarth ritis, left knee Assessments Date Code Description Provider 07/07/2020 M17.12 Unilateral primary osteoarthriti s, left knee Marzena Austin PA-C 07/07/2020 M17.12 Unilateral primary osteoarthriti s, left knee Kaleb Izquierdo MD 07/02/2020 Z01.818 Encounter for other preprocedura l examination Adin Herring PA-C 07/02/2020 M17.12 Unilateral primary osteoarthriti s, left knee Adin Herring PA-C 05/07/2020 M17.12 Unilateral primary osteoarthriti s, left knee Kaleb Izquierdo MD 04/09/2020 Z47.1 Aftercare following joint replac ement surgery Adin Herring PA-C 04/09/2020 Z96.651 Presence of right artificial kne e joint Adin Herring PA-C 03/12/2020 Z47.1 Aftercare following joint replac ement surgery Adin Herring PA-C 03/12/2020 Z96.651 Presence of right artificial kne e joint Adin Herring PA-C 02/27/2020 M17.11 Unilateral primary osteoarthriti s, right knee Jana E. Doremus, PA-C 02/27/2020 M17.11 Unilateral primary osteoarthriti s, right knee Kaleb Izquierdo MD 02/25/2020 Z01.818 Encounter for other preprocedura l examination Marzena Austin PA-C 02/25/2020 M17.11 Unilateral primary osteoarthriti s, right knee Marzena Austin PA-C Plan of Treatment Future Appointment(s):* 07/22/2020 8:45 am - Kaleb Izquierdo MD at [place] Functional Status Description No Information Available Mental Status Description No Information Available Referrals Refer to Dr Reason for Referral Status Appt Date Adin Herring PA-C SURGERY NO AUTH REQUIRED FOR TOTAL LEFT KNEE([id number]) TO SURGERY NT Created [address] [place] [address] [phone] Adin Herring PA-C SURGERY NO AUTH REQUIRED FOR TOTAL LEFT KNEE([id number]) TO SURGERY NT Created [address] [place] [address] [phone]
--- OUTSIDE RECORDS SUMMARY | 2020-08-31 15:44 | CCD | Continuity of Care Document ---
Author Author Reta IZQUIERDO MD Organization Unknown Address [address] [place] [address], [facility] [address] [place] [address] Phone [phone] Care Team Providers Care Weight Training Instructor Name Role Phone Tonja Cardenas MD [facility] [phone] Problems Active Problems Provider Date Pure hypercholesterolemia [...] Result H/L Range Note Prothrombin Time/Inr 06/23/2020 [facility] entr [address] [place] [address] (315)- - Prothrombin Time 18.2 seconds High 12.5-14.3 Inr 1.48 Normal 1 Comprehensive Metabolic Profil 06/23/2020 [facility] [address] [place] [address] (315)- - Glucose, Fasting 115 mg/dL High [...] 1.2 Normal 1.2-2.2 Complete Blood Count 06/23/2020 [facility] entr [address] [place] [address] (315)- - White Blood Count 8.8 10 Normal [...] % Normal 0-0 Laboratory test finding 06/23/2020 [facility] Centr [address] [place] [address] (315)- - Erythrocyte Sedimentation Rate 25 mm/hr Normal 0-30 Order 05/08/2020 [facility] nter Surgery <pending> Lab Results 02/25/2020 [...] Ratio 1.26 CALC 1.00-1.90 Prothrombin Time/Inr 02/20/2020 [facility] [address] [place] [address] (315)- - Prothrombin Time 18.9 seconds High 11.8-14.0 Inr 1.61 Normal 6 Comprehensive Metabolic Profil 02/20/[address] [address] (315)- - Glucose, Fasting 108 mg/dL High [...] 1.2 Normal 1.2-2.2 Complete Blood Count 02/20/2020 [facility] [address] [place] [address] (315)- - White Blood Count 8.7 10 [...] % Normal 0-0 Laboratory test finding 02/20/2020 [facility] [address] [place] [address] (315)- - Erythrocyte Sedimentation Rate 18 mm/hr Normal 0-30 1 THERAPUTIC HUMAN INR VALUES INDICATIONS NORMAL [...] Little GFR Left ESRD GFR <15 on COMMERCIAL CENTER MANAGER 3 100-125 mg/dL PRE-DIABET ES/FASTING >126 mg/dL DIABETES/FASTING 4 CHRONIC KIDNEY DISEASE STAGI NG PER NKF STAGE I & II GFR >= 60 NORMAL TO MILDLY DECREASED STAGE III GFR 30-59 MODERATELY DECREASED STAGE IV GFR 15-29 SEVERELY DECREASED STAGE V GFR <15 VERY LITTLE GFR LEFT ESRD GFR <15 ON COMMERCIAL CENTER MANAGER 5 NOTE: RESULT VERIFIED. 6 THERAPUTIC HUMAN [...] Little GFR Left ESRD GFR <15 on COMMERCIAL CENTER MANAGER Procedures Date Code Description Status 07/07/2020 36672 Arthroplasty "Total Knee" Medial & Lateral W/ Or W/O Patella Resu Completed 07/07/2020 12481 Arthroplasty "Total Knee" Medial & Lateral W/ Or W/O Patella Resu Completed 04/09/2020 41328 X-Ray Knee Ap & Lateral W/Obliqu es Three Views Completed 02/27/2020 87149 Arthroplasty "Total Knee" Medial & Lateral W/ Or W/O Patella Resu Completed 02/27/2020 83361 Arthroplasty "Total Knee" Medial & Lateral W/ Or W/O Patella Resu Completed Medical Devices Description No Information Available Encounters Type Date Location Provider Dx Diagnosis Office Visit 07/22/2020 8:45a [place] Izquierdo MD Z4 7.1 Aftercare following joint replacement surgery Z96.652 Presence of left artificial knee joint Office Visit 07/02/2020 8:45a [place] Herring PA-C Z0 1.818 Encounter for other preprocedural examination M17.12 Unilateral primary osteoarth ritis, left knee Assessments Date Code Description Provider 07/22/2020 Z47.1 Aftercare following joint replac ement surgery Kaleb Izquierdo MD 07/22/2020 Z96.652 Presence of left artificial knee joint Kaleb Izquierdo MD 07/07/2020 M17.12 Unilateral primary osteoarthriti s, left [...] Unilateral primary osteoarthriti s, right knee Jana Pearce, BRYON 02/27/2020 M17.11 Unilateral primary osteoarthriti s, right knee Kaleb Izquierdo MD 02/25/2020 Z01.818 Encounter for other preprocedura l examination Marzena Austin PA-C 02/25/2020 M17.11 Unilateral primary osteoarthriti s, right knee Marzena Austin PA-C Plan of Treatment Future Appointment(s):* 09/03/2020 8:15 am - Kaleb Izquierdo MD at [place] 07/22/2020 - Kaleb Izquierdo MD* Z47.1 Aftercare following joint replacement surgery * Z96.652 Presence of left artificial knee joint* Follow up:* in 6 weeks with DPV for left knee recheck with xrays of left knee 3 views please. Functional Status Description No Information Available Mental Status Description No Information Available Referrals Refer to Dr Reason for Referral Status Appt Date Adin Herring PA-C SURGERY NO AUTH REQUIRED FOR TOTAL LEFT KNEE([id number]) TO SURGERY NT Created [facility] [place] [address] [phone] Adin Herring PA-C SURGERY NO AUTH REQUIRED FOR TOTAL LEFT KNEE([id number]) TO SURGERY NT Created [facility] [place] [address] [phone]
--- OUTSIDE RECORDS SUMMARY | 2020-08-31 15:44 | CCD | Continuity of Care Document ---
Author Author Reta IZQUIERDO MD Organization Unknown Address [address] [place] [address], [facility] [address] [place] [address] Phone [phone] Care Team Providers Care Lining Maker Name Role Phone Tonja Cardenas MD [facility] [phone] Problems Active Problems Provider Date Pure hypercholesterolemia [...] Result H/L Range Note Prothrombin Time/Inr 06/23/2020 [facility] entr [address] [place] [address] (315)- - Prothrombin Time 18.2 seconds High 12.5-14.3 Inr 1.48 Normal 1 Comprehensive Metabolic Profil 06/23/2020 [facility] [address] [place] [address] (315)- - Glucose, Fasting 115 mg/dL High [...] 1.2 Normal 1.2-2.2 Complete Blood Count 06/23/2020 [facility] entr [address] [place] [address] (315)- - White Blood Count 8.8 10 [...] % Normal 0-0 Laboratory test finding 06/23/2020 [facility] Cent[facility] [address] [place] [address] (315)- - Erythrocyte Sedimentation Rate 25 mm/hr Normal 0-30 Order 05/08/2020 [facility] nter Surgery <pending> Lab Results 02/25/2020 N2N/CCD [...] Ratio 1.26 CALC 1.00-1.90 Prothrombin Time/Inr 02/20/2020 [facility] [address] [place] [address] (315)- - Prothrombin Time 18.9 seconds High 11.8-14.0 Inr 1.61 Normal 6 Comprehensive Metabolic Profil 02/20/[address] [address] (315)- - Glucose, Fasting 108 mg/dL High [...] 1.2 Normal 1.2-2.2 Complete Blood Count 02/20/2020 [facility] [address] [place] [address] (315)- - White Blood Count 8.7 10 [...] % Normal 0-0 Laboratory test finding 02/20/2020 [facility] l Centr [address] [place] [address] (315)- - Erythrocyte Sedimentation Rate 18 mm/hr Normal 0-30 Order 01/16/2020 [facility] Ce nter Surgery <pending> 1 THERAPUTIC HUMAN [...] Little GFR Left ESRD GFR <15 on HORTICULTURAL THERAPIST 3 100-125 mg/dL PRE-DIABET ES/FASTING >126 mg/dL DIABETES/FASTING 4 CHRONIC KIDNEY DISEASE STAGI NG PER NKF STAGE I & II GFR >= 60 NORMAL TO MILDLY DECREASED STAGE III GFR 30-59 MODERATELY DECREASED STAGE IV GFR 15-29 SEVERELY DECREASED STAGE V GFR <15 VERY LITTLE GFR LEFT ESRD GFR <15 ON HORTICULTURAL THERAPIST 5 NOTE: RESULT VERIFIED. 6 THERAPUTIC HUMAN [...] Little GFR Left ESRD GFR <15 on HORTICULTURAL THERAPIST Procedures Date Code Description Status 07/07/2020 01680 Arthroplasty "Total Knee" Medial & Lateral W/ Or W/O Patella Resu Completed 07/07/2020 83025 Arthroplasty "Total Knee" Medial & Lateral W/ Or W/O Patella Resu Completed 04/09/2020 26764 X-Ray Knee Ap & Lateral W/Obliqu es Three Views Completed 02/27/2020 17186 Arthroplasty "Total Knee" Medial & Lateral W/ Or W/O Patella Resu Completed 02/27/2020 39341 Arthroplasty "Total Knee" Medial & Lateral W/ Or W/O Patella Resu Completed Medical Devices Description No Information Available Encounters Type Date Location Provider Dx Diagnosis Office [place] M1 7.12 Unilateral primary osteoarthritis, left knee Assessments Date Code Description Provider 07/07/2020 M17.12 Unilateral primary osteoarthriti s, left knee Marzena Austin PA-C 07/07/2020 M17.12 Unilateral primary osteoarthriti s, left knee Kaleb Izquierdo MD 07/02/2020 M17.12 Unilateral primary osteoarthriti s, left knee Adin Herring PA-C 05/07/2020 M17.12 Unilateral primary osteoarthriti s, left knee D. Ajay Izquierdo MD 04/09/2020 Z47.1 Aftercare following joint [...] M17.11 Unilateral primary osteoarthriti s, right knee DRamon Izquierdo MD 02/25/2020 Z01.818 Encounter for other preprocedura l examination Marzena Austin PA-C 02/25/2020 M17.11 Unilateral primary osteoarthriti s, right knee Marzena Austin PA-C Plan of Treatment Future Appointment(s):* 07/22/2020 8:45 am - Kaleb Izquierdo MD at [place] Functional Status Description No Information Available Mental Status Description No Information Available Referrals Refer to Dr Reason for Referral Status Appt Date Adin Herring PA-C SURGERY NO AUTH REQUIRED FOR TOTAL LEFT KNEE([id number]) TO SURGERY NT Created [address] [place] [address] [phone] Adin Herring PA-C SURGERY NO AUTH REQUIRED FOR TOTAL LEFT KNEE([id number]) TO SURGERY NT Created [address] [place] [address] [phone]
--- OUTSIDE RECORDS SUMMARY | 2020-08-31 15:44 | CCD | Continuity of Care Document ---
Author Author Reta IZQUIERDO MD Organization Unknown Address [address] [place] [address], [facility] [address] [place] [address] Phone [phone] Care Team Providers Care Report Specialist Name Role Phone Tonja Cardenas MD AUTM [phone] Problems Active Problems Provider Date Pure hypercholesterolemia [...] hours as needed for pain 21tabs Kaleb Izqiuerdo MD 03/14/2020 - 05/06/2020 Bactroban 2% Ointment [...] Result H/L Range Note Prothrombin Time/Inr 06/23/2020 [facility] entr [address] [place] [address] (315)- - Prothrombin Time 18.2 seconds High 12.5-14.3 Inr 1.48 Normal 1 Comprehensive Metabolic Profil 06/23/2020 [facility] [address] [place] [address] (315)- - Glucose, Fasting 115 mg/dL High [...] 1.2 Normal 1.2-2.2 Complete Blood Count 06/23/2020 [facility] entr [address] [place] [address] (315)- - White Blood Count 8.8 10 [...] % Normal 0-0 Laboratory test finding 06/23/2020 [facility] [address] [place] [address] (315)- - Erythrocyte Sedimentation Rate 25 mm/hr Normal 0-30 Order 05/08/2020 [facility] nter Surgery <pending> Lab Results 02/25/2020 N2N/CCD [...] Ratio 1.26 CALC 1.00-1.90 Prothrombin Time/Inr 02/20/2020 [facility] [address] [place] [address] (315)- - Prothrombin Time 18.9 seconds High 11.8-14.0 Inr 1.61 Normal 6 Comprehensive Metabolic Profil 02/20/[address] [address] (315)- - Glucose, Fasting 108 mg/dL High [...] 1.2 Normal 1.2-2.2 Complete Blood Count 02/20/2020 [facility] [address] [place] [address] (315)- - White Blood Count 8.7 10 [...] % Normal 0-0 Laboratory test finding 02/20/2020 [facility] [address] [place] [address] (315)- - Erythrocyte Sedimentation Rate 18 mm/hr [...] Little GFR Left ESRD GFR <15 on F[employer]ELANCE MAKEUP ARTIST 3 100-125 mg/dL PRE-DIABET ES/FASTING >126 mg/dL DIABETES/FASTING 4 CHRONIC KIDNEY DISEASE STAGI NG PER NKF STAGE I & II GFR >= 60 NORMAL TO MILDLY DECREASED STAGE III GFR 30-59 MODERATELY DECREASED STAGE IV GFR 15-29 SEVERELY DECREASED STAGE V GFR <15 VERY LITTLE GFR LEFT ESRD GFR <15 ON F[employer]ELANCE MAKEUP ARTIST 5 NOTE: RESULT VERIFIED. 6 THERAPUTIC HUMAN [...] Little GFR Left ESRD GFR <15 on F[employer]ELANCE [employer]UP ARTIST Procedures Date Code Description Status 07/07/2020 32214 Arthroplasty "Total Knee" Medial & Lateral W/ Or W/O Patella Resu Completed 07/07/2020 19042 Arthroplasty "Total Knee" Medial & Lateral W/ Or W/O Patella Resu Completed 04/09/2020 82442 X-Ray Knee Ap & Lateral W/Obliqu es Three Views Completed 02/27/2020 06268 Arthroplasty "Total Knee" Medial & Lateral W/ Or W/O Patella Resu Completed 02/27/2020 67314 Arthroplasty "Total Knee" Medial & Lateral W/ Or W/O Patella Resu Completed Medical Devices Description No Information Available Encounters Type Date Location Provider Dx Diagnosis Office Visit 07/02/2020 8:45a [place] Adin Herring PA-C Z0 1.818 Encounter for other preprocedural examination M17.12 Unilateral primary osteoarth ritis, left knee Assessments Date Code Description Provider 07/22/2020 Z96.652 Presence of left artificial knee joint Kaleb Izquierdo MD 07/22/2020 Z47.1 Aftercare following joint replac ement surgery Kaleb Izquierdo MD 07/07/2020 M17.12 Unilateral primary [...] 8:15 am - Kaleb Izquierdo MD at [place] 07/22/2020 - Kaleb Izquierdo MD* Z96.652 Presence of left artificial knee joint* Follow up:* in 6 weeks with DPV for left knee recheck with xrays of left knee 3 views please. * Z47.1 Aftercare following joint replacement surgery Functional Status Description No Information Available Mental Status Description No Information Available Referrals Refer to Dr Reason for Referral Status Appt Date dAin Herring PA-C SURGERY NO AUTH REQUIRED FOR TOTAL LEFT KNEE([id number]) TO SURGERY NT Created [address] [place] [address] [phone] Adin Herring PA-C SURGERY NO AUTH REQUIRED FOR TOTAL LEFT KNEE([id number]) TO SURGERY NT Created [address] [place] [address] [phone]
--- OUTSIDE RECORDS SUMMARY | 2020-08-31 15:45 | CCD | Continuity of Care Document ---
Author Author Reta HERRING PA-C Organization Unknown Address [address] [address] Phone [phone] Care Team Providers Care Paint Grinder Name Role Phone Tonja Cardenas MD AUTM [phone] Problems Active Problems Provider Date Pure hypercholesterolemia [...] times a day x 5d before surgery PALLAVI Izquierdo MD 06/12/2020 Hibiclens 4% Liquid use [...] 1 every 4-6 hours as needed pain Unknown Famotidine 20mg Tablets Unknown Rosuvastatin Calcium 5mg Tablets Unknown Xarelto 15mg Tablets 1 by mouth every day Unknown History Medications Acetaminophen-Codeine #3 300-30mg Tablets take 1-2 tablets every 8 hours as needed for pain 21tabs Kaleb Izquierdo MD 03/14/2020 - 05/06/2020 Bactroban 2% Ointment apply a pea sized amount to nasal passages three times a day x 5d before surgery QS [place]. Ajay Izquierdo MD 02/13/2020 - 05/06/2020 Hibiclens 4% [...] Result H/L Range Note Prothrombin Time/Inr 06/23/2020 [facility] entr [address] [place] [address] (315)- - Prothrombin Time 18.2 seconds High 12.5-14.3 Inr 1.48 Normal 1 Comprehensive Metabolic Profil 06/23/2020 [facility] [address] [place] [address] (315)- - Glucose, Fasting 115 mg/dL High [...] 1.2 Normal 1.2-2.2 Complete Blood Count 06/23/2020 [facility] entr [address] [place] [address] (315)- - White Blood Count 8.8 10 [...] % Normal 0-0 Laboratory test finding 06/23/2020 [facility] [address] [place] [address] (984)- - Erythrocyte Sedimentation Rate 25 mm/hr Normal 0-30 Order 05/08/2020 [facility] nter Surgery <pending> Lab Results 02/25/2020 [...] Ratio 1.26 CALC 1.00-1.90 Prothrombin Time/Inr 02/20/2020 [facility] [address] [place] [address] (315)- - Prothrombin Time 18.9 seconds High 11.8-14.0 Inr 1.61 Normal 6 Comprehensive Metabolic Profil 02/20/2020 [facility] [address] [place] [address] (315)- - Glucose, Fasting 108 mg/dL High [...] 1.2 Normal 1.2-2.2 Complete Blood Count 02/20/2020 [facility] [address] [place] [address] (315)- - White Blood Count 8.7 10 [...] % Normal 0-0 Laboratory test finding 02/20/2020 [facility] [address] [place] [address] (315)- - Erythrocyte Sedimentation Rate 18 mm/hr Normal 0-30 Order 01/16/2020 [facility] nter Surgery <pending> 1 THERAPUTIC HUMAN [...] Little GFR Left ESRD GFR <15 on SLUMBER ROOM ATTENDANT 3 100-125 mg/dL PRE-DIABET ES/FASTING >126 mg/dL DIABETES/FASTING 4 CHRONIC KIDNEY DISEASE STAGI NG PER NKF STAGE I & II GFR >= 60 NORMAL TO MILDLY DECREASED STAGE III GFR 30-59 MODERATELY DECREASED STAGE IV GFR 15-29 SEVERELY DECREASED STAGE V GFR <15 VERY LITTLE GFR LEFT ESRD GFR <15 ON SLUMBER ROOM ATTENDANT 5 NOTE: RESULT VERIFIED. 6 THERAPUTIC HUMAN [...] Little GFR Left ESRD GFR <15 on [employer]UM[employer] ROOM ATTENDANT Procedures Date Code Description Status 04/09/2020 14255 X-Ray Knee Ap & Lateral W/Obliqu es Three Views Completed 02/27/2020 27552 Arthroplasty "Total Knee" Medial & Lateral W/ Or W/O Patella Resu Completed 02/27/2020 31746 Arthroplasty "Total Knee" Medial & Lateral W/ Or W/O Patella Resu Completed Medical Devices Description No Information Available Encounters Type Date Location Provider Dx Diagnosis Office Visit 07/02/2020 8:45a [place] Her[place] PA-C M1 7.12 Unilateral primary osteoarthritis, left knee Office Visit 01/14/2020 9:30a [place] Izquierdo MD M1 7.0 Bilateral primary osteoarthritis of knee Assessments Date Code Description Provider 07/02/2020 M17.12 Unilateral primary osteoarthriti s, left [...] MD 02/25/2020 Z01.818 Encounter for other preprocedura miguel Austin PA-C 02/25/2020 M17.11 Unilateral primary osteoarthriti s, right knee Marzena Austin PA-C 01/14/2020 M17.0 Bilateral primary osteoarthritis of knee Kaleb Izquierdo MD Plan of Treatment Future Appointment(s):* 07/22/2020 8:45 am - Kaleb Izquierdo MD at [place] * 07/07/2020 10:00 am - Marzena Austin PA-C at Surgery [facility] Inpatient * 07/07/2020 10:00 am - Kaleb Izquierdo MD at Surgery [facility] Inpatient Functional Status Description No Information Available Mental Status Description No Information Available Referrals Refer to Dr Reason for Referral Status Appt Date Adin Herring PA-C SURGERY NO AUTH REQUIRED FOR TOTAL LEFT KNEE([id number]) TO SURGERY NT Created [address] [place] [address] [phone] Adin Herring PA-C SURGERY NO AUTH REQUIRED FOR TOTAL LEFT KNEE([id number]) TO SURGERY NT Created [address] [place] [address] [phone]
--- OUTSIDE RECORDS SUMMARY | 2020-08-31 15:45 | CCD | Continuity of Care Document ---
Author Organization Unknown Address Unknown Phone Unavailable Care Team Providers Care Senior Interactive Producer Name Role Phone Tonja Cardenas MD AUTM [phone] Isak Riaz DO AUTM [phone] Ledy Funes NP AUTM [phone] Trina Weber MD AUTM [phone] Fritz Gorman MD AUTM Unavailable Ajay Izquierdo MD AUTM [phone] Problems Active Problems Provider Date Benign essential [...] Exacerbation of asthma Tonja Cardenas M.D. Onset: 2017 Total replacement of right knee joint Terri [...] Tonja Cardenas M.D. 1 09/17/2013 Transport Chair [facility] needed for ambulatory dysfunction. 1units Tonja Cardenas [...] 05/20/2018 Prevnar 13 U-Flu Given 05/20/2018 Influenza,Unspecified 62698 Given 02/09/2018 Shingrix 32711 Given 12/09/2017 Shingrix 95297 Given 06/14/2017 Adacel- Tetanus Diphtheria P ertussis (Age64 & Under) [id number] U-Flu Given 06/03/2017 Influenza,Unspecified U-PneuC Given 11/27/2015 Prevnar 13 [id number] Given 06/11/2015 Fluvirin Virus Vaccine 13385 01 27665 Given 04/25/2013 Zoster Vaccine [id number] 23350 Given 05/30/2008 Influenza Virus Vaccine 03422 Given 06/27/2007 Pneumovax 23 85317 Given 05/29/2007 Influenza Virus Vaccine 50019 Given 05/31/2002 Influenza Virus Vaccine 38873 Given 06/23/2001 Influenza Virus Vaccine Vital Signs Date Vital Result Comment 05/13/2020 8:54am BP Systolic 132 mmHg RT Arm BP Diastolic 70 mmHg RT Arm Heart Rate 117 /min Height 60.25 inches 5'0.25" Weight 155.00 lb O2 Saturation Level with Exercise 92 % RM Air BMI (Body Mass Index) 30.0 kg/m2 04/07/2020 11:39am BP Systolic 92 mmHg RT Arm BP Diastolic 60 mmHg RT Arm Heart Rate 87 /min Height 60.25 inches 5'0.25" Weight 153.12 lb O2 Saturation Level with Exercise 94 % RM Air BMI (Body Mass Index) 29.7 kg/m2 Results Test Acquired Date Facility Test Result H/L Range Note Prothrombin Time/Inr 06/23/2020 [facility] enter [address] [place], [place] [address] [phone] Prothrombin Time 18.2 seconds High 12.5-14.3 Inr 1.48 Normal 1 Comprehensive Metabolic Profil 06/23/2020 [address] [place], [place] [address] [phone] Glucose, Fasting 115 mg/dL High 70-100 Blood [...] 1.2 Normal 1.2-2.2 Complete Blood Count 06/23/2020 [facility] enter [address] [place], [place] [address] [phone] White Blood Count 8.8 10 Normal 4.0-10.0 [...] Laboratory test finding 06/23/2020 [facility] [address] [place] [address] [phone] Erythrocyte Sedimentation Rate 25 mm/hr Normal 0 -30 Comprehensive Chem Profile 05/13/2020 [facility] Hand Mica Plate Layer: [address] [place] [address] [phone] Glucose 105 mg/dL High 74 - 99 [...] Low >60 4 Laboratory test finding 05/13/2020 [facility] shemar quinonez Hand Mica Plate Layer: Dr [place] [id number] [phone] Thyroid Stimulating Hormone 6.74 uIU/mL High 0.3 6 - 3.74 Complete Blood Count 05/13/2020 [facility] Hand Mica Plate Layer: Dr Ramírez Nascimento [place] [id number] [phone] WBC 8.8 x10*3/UL 4.1 - 10.9 RBC [...] 2.0 - 7.8 Complete Blood Count 04/07/2020 [facility] Hand Mica Plate Layer: Dr [place] [address] [phone] WBC 8.5 x10*3/UL 4.1 - 10.9 RBC [...] 2.0 - 7.8 Laboratory test finding 04/07/2020 [facility] shemar quinonez Hand Mica Plate Layer: Dr Ramírez [place]asc[place] [address] [phone] Magnesium 2.0 mg/dL 1.8 - 2.4 Comprehensive Chem Profile 04/07/2020 [facility] Hand Mica Plate Layer: Dr Ramírez Nasc[place] [address] [phone] Glucose 106 mg/dL High 74 - 99 [...] Low >60 6 Laboratory test finding 04/07/2020 [facility] shemar quinonez Hand Mica Plate Layer: Dr Ramírez Nasc[place] [address] [phone] Thyroid Stimulating Hormone 1.02 uIU/mL 0.3 6 - 3.74 Complete Blood Count 03/04/2020 [facility] Hand Mica Plate Layer: Dr Ramírez Nasc[place] [address] [phone] WBC 12.6 x10*3/UL High 4.1 - 10.9 7 RBC 4.45 x10*6/UL 4.20 - 6.30 Hemoglobin [...] # 10.8 x10*3/UL High 2.0 - 7.8 Comprehensive Chem Profile 03/04/2020 [facility] Hand Mica Plate Layer: [address] [place] [address] [phone] Glucose 99 mg/dL 74 - 99 8 BUN 17 mg/dL 7 - 18 Creatinine 1.4 mg/dL High 0.6 - 1.3 Sodium 140 mEq/L 136 - 145 Potassium 4.3 mEq/L 3.5 - 5.1 Chloride 103 mEq/L 98 - 107 Carbon Dioxide 26 mEq/L 21 - 32 Calcium 8.2 mg/dL Low 8.5 - 10.1 9 Alk. Phosphatase 115 mg/dL 46 - 116 Total Bilirubin 0.8 mg/dL 0.2 - 1.0 Ast (Sgot) 32 U/L 15 - 37 Alt (SGPT) 47 U/L 12 - 78 Albumin 3.4 g/dL 3.4 - 5.0 Total Protein 6.5 g/dL 6.4 - 8.2 A/G Ratio 1.10 CALC 1.00 - 1.90 GFR 37 mL/min Low >60 GFR 44 mL/min Low >60 10 Liver Function Profile 02/25/2020 [facility] Hand Mica Plate Layer: Dr [place] [address] [phone] Alk. Phosphatase 132 mg/dL High 46 - 116 Total Bilirubin 0.8 mg/dL 0.2 - 1.0 Ast (Sgot) 63 U/L High 15 - 37 Alt (SGPT) 107 U/L High 12 - 78 11 Albumin 3.9 g/dL 3.4 - 5.0 Total Protein 7.0 g/dL 6.4 - 8.2 Direct Bilirubin 0.2 mg/dL High 0.0 - 0.2 A/G Ratio 1.26 CALC 1.00 - 1.90 Basic Metabolic Panel 02/25/2020 [facility] Hand Mica Plate Layer: Dr Ramírez Nascimento [place], [place] [address] [phone] Glucose 128 mg/dL High 74 - 99 12 BUN 17 mg/dL 7 - 18 Creatinine 1.4 mg/dL High 0.6 - 1.3 Sodium 143 mEq/L 136 - 145 Potassium 4.1 mEq/L 3.5 - 5.1 Chloride 105 mEq/L 98 - 107 Carbon Dioxide 27 mEq/L 21 - 32 Calcium 9.2 mg/dL 8.5 - 10.1 GFR 37 mL/min Low >60 GFR 44 mL/min Low >60 13 Prothrombin Time/Inr 02/20/2020 [facility] enter [address] [place], [place] [address] [phone] Prothrombin Time 18.9 seconds High 11.8-14.0 Inr 1.61 Normal 14 Comprehensive Metabolic Profil 02/20/2020 [facility] [address] [place], [place] [address]31 [phone] Glucose, Fasting 108 mg/dL High 70-100 Blood [...] 1.2 Normal 1.2-2.2 Complete Blood Count 02/20/2020 [facility] enter [address] [place] [address] [phone] White Blood Count 8.7 10 Normal 4.0-10.0 [...] % Normal 0-0 Laboratory test finding 02/20/2020 [facility] [address] [place] [address] [phone] Erythrocyte Sedimentation Rate 18 mm/hr Normal 0 -30 Hepatitis Profile 02/20/2020 [facility] nter [address] [place] [address] [phone] Hepatitis C Virus Rosi Index 0.1 INDEX Normal <0.8 16 Hepatitis B Surface Antigen NEGATIVE Normal Negative Hepatitis B Core Antibody Igm NEGATIVE Normal Negative Hepatitis A Antibody Igm NEGATIVE Normal Negative Basic Metabolic Panel 02/20/2020 [facility] Hand Mica Plate Layer: Dr Ramí[place] [address] [phone] Glucose 106 mg/dL High 74 - 99 [...] Low >60 18 Complete Blood Count 02/11/2020 [facility] Hand Mica Plate Layer: Dr Ramírez Nascimento [place] [address] [phone] WBC 8.7 x10*3/UL 4.1 - 10.9 RBC [...] 2.0 - 7.8 Basic Metabolic Panel 02/11/2020 [facility] Hand Mica Plate Layer: Dr Ramírez Nasc[place] [address] [phone] Glucose 96 mg/dL 74 - 99 19 [...] 38 mL/min Low >60 21 A1c 02/11/2020 [facility] Hand Mica Plate Layer: Dr Ramírez Nascimento [place] [address] [phone] Hba1c 5.9 g/dL High 4.8 - 5.6 22 Est Avg Glucose 123 mg/dL High 60 - 110 Basic Met[facility] Plate Layer: Dr Ramírez Nascimento [place] [address] [phone] Glucose 130 mg/dL High 74 - 99 [...] >60 GFR 59 mL/min Low >60 25 Laboratory test finding 01/01/2020 [facility] Hand Mica Plate Layer: Dr Ramírez Nascimento [place] [address] [phone] Vitamin D 25-Hydroxy 44.6 24.0 - 80.0 26 Complete Blood Count 01/01/2020 [facility] Hand Mica Plate Layer: Dr Ramírez Nascimento [place] [address] [phone] WBC 7.3 x10*3/UL 4.1 - 10.9 RBC 5.29 x10*6/UL 4.20 - 6.30 Hemoglobin 14.9 g/dL 12.0 - 18.0 Hematocrit 44.4 % 37.0 - 51.0 MCV 83.8 fL 80.0 - 97.0 MCH 28.1 pg 26.0 - 32.0 MCHC 33.6 g/dL 31.0 - 38.0 RDW 13.3 % 11.6 - 13.7 PLT 350 x10*3/UL 140 - 440 MPV 8.0 FL 7.8 - 11.0 Lymph % 18.6 % 10.0 - 58.5 Mid % 4.6 % 1.7 - 9.3 Neut % 76.8 % 37.0 - 92.0 Lymph # 1.3 x10*3/UL 0.6 - 4.1 Mid # 0.4 x10*3/UL 0.1 - 0.6 Neut # 5.6 x10*3/UL 2.0 - 7.8 Basic Metabolic Panel [facility]01/2020 [facility] Hand Mica Plate Layer: Dr [address] [address] [phone] Glucose 153 mg/dL High 74 - 99 27 BUN 17 mg/dL 7 - 18 Creatinine 1.2 mg/dL 0.6 - 1.3 Sodium 144 mEq/L 136 - 145 Potassium 4.2 mEq/L 3.5 - 5.1 Chloride 105 mEq/L 98 - 107 Carbon Dioxide 28 mEq/L 21 - 32 Calcium 9.5 mg/dL 8.5 - 10.1 GFR 44 mL/min Low >60 GFR 53 mL/min Low >60 28 1 THERAPUTIC HUMAN INR VALUES INDICATIONS NORMAL [...] Little GFR Left ESRD GFR <15 on [employer] 3 100-125 mg/dL PRE-DIABET ES/FASTING >126 mg/dL DIABETES/FASTING 4 CHRONIC KIDNEY DISEASE STAGI NG PER NKF STAGE I & II GFR >= 60 NORMAL TO MILDLY DECREASED STAGE III GFR 30-59 MODERATELY DECREASED STAGE IV GFR 15-29 SEVERELY DECREASED STAGE V GFR <15 VERY LITTLE GFR LEFT ESRD GFR <15 ON [employer] 5 100-125 mg/dL PRE-DIABET ES/FASTING >126 mg/dL DIABETES/FASTING 6 CHRONIC KIDNEY DISEASE STAGI NG PER NKF STAGE I & II GFR >= 60 NORMAL TO MILDLY DECREASED STAGE III GFR 30-59 MODERATELY DECREASED STAGE IV GFR 15-29 SEVERELY DECREASED STAGE V GFR <15 VERY LITTLE GFR LEFT ESRD GFR <15 ON [employer] 7 NOTE: CBC VERIFIED 8 100-125 mg/dL PRE-DIABET ES/FASTING >126 mg/dL DIABETES/FASTING 9 NOTE: RESULT VERIFIED. 10 CHRONIC KIDNEY DISEASE STAGI NG PER NKF STAGE I & II GFR >= 60 NORMAL TO MILDLY DECREASED STAGE III GFR 30-59 MODERATELY DECREASED STAGE IV GFR 15-29 SEVERELY DECREASED STAGE V GFR <15 VERY LITTLE GFR LEFT ESRD GFR <15 ON [employer] 11 NOTE: RESULT VERIFIED. 12 100-125 mg/dL PRE-DIABET ES/FASTING >126 mg/dL DIABETES/FASTING 13 CHRONIC KIDNEY DISEASE STAGI NG PER NKF STAGE I & II GFR >= 60 NORMAL TO MILDLY DECREASED STAGE III GFR 30-59 MODERATELY DECREASED STAGE IV GFR 15-29 SEVERELY DECREASED STAGE V GFR <15 VERY LITTLE GFR LEFT ESRD GFR <15 ON [employer] 14 THERAPUTIC HUMAN INR VALUES INDICATIONS NORMAL [...] Little GFR Left ESRD GFR <15 on [employer] 16 Negative Not infected with HCV, unless [...] LITTLE GFR LEFT ESRD GFR <15 ON [employer] 19 100-125 mg/dL PRE-DIABET ES/FASTING >126 mg/dL DIABETES/FASTING 20 NOTE: RESULT VERIFIED. 21 CHRONIC KIDNEY DISEASE STAGI NG PER NKF STAGE I & II GFR >= 60 NORMAL TO MILDLY DECREASED STAGE III GFR 30-59 MODERATELY DECREASED STAGE IV GFR 15-29 SEVERELY DECREASED STAGE V GFR <15 VERY LITTLE GFR LEFT ESRD GFR <15 ON [employer] 22 Lab Result Notes: Pre-Diabetes 5.7 - [...] LITTLE GFR LEFT ESRD GFR <15 ON [employer] 26 This test was performed in [employer] IP Vitamin D immunoassay kit. Values obtained with different assay methods should not be used interchangeably. 27 100-125 mg/dL PRE-DIABET ES/FASTING >126 mg/dL DIABETES/FASTING 28 CHRONIC KIDNEY DISEASE STAGI NG PER NKF STAGE I & II GFR >= 60 NORMAL TO MILDLY DECREASED STAGE III GFR 30-59 MODERATELY DECREASED STAGE IV GFR 15-29 SEVERELY DECREASED STAGE V GFR <15 VERY LITTLE GFR LEFT ESRD GFR <15 ON [employer] Procedures Date Code Description Status 01/15/2020 65999 Spirometry Completed 09/14/2019 [id number] Mammogram Completed 09/04/2019 [id number] Bone Mineral Density Test [facility] 06/01/2018 [id number] Mammogram Completed 04/26/2017 [id number] Bone Mineral Density Test [facility] 04/26/2017 [id number] Mammogram Completed 12/25/2015 [id number] Mammogram Completed 09/04/2015 [id number] Colonoscopy Completed 08/21/2014 [id number] Mammogram Completed 01/02/2014 [id number] Diabetic Retinal Eye Exam Comple [facility] 08/14/2013 [id number] Mammogram Completed 03/28/2012 [id number] Colonoscopy Completed 01/14/2011 [id number] Mammogram Completed 01/13/2011 [id number] Bone Mineral Density Test [facility] 04/25/2007 [id number] Bone Mineral Density Test [facility] 11/17/2006 [id number] Mammogram Completed Medical Devices Description No Information Available Encounters Type Date Location Provider Dx Diagnosis Office Visit 05/13/2020 9:00a [facility] 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 J30.9 Allergic rhinitis, unspecifi ed I12.9 Hypertensive chronic kidney disease w stg 1-4/unsp chr kdny N18.3 Chronic kidney disease, stag e 3 (moderate) I26.99 Other pulmonary embolism wit hout acute cor pulmonale Z79.01 long term care phlebotomist (current) use of a nticoagulants M81.0 Age-related osteoporosis w/o current pathological fracture E03.9 Hypothyroidism, unspecified F41.9 Anxiety disorder, unspecifie d Office Visit 03/04/2020 10:00a [place] [facility] M.[facility]. M25.561 Pain in right knee R74.0 Nonspec elev of levels of tr ansamns & lactic acid dehydrgnse I12.9 Hypertensive chronic kidney disease w stg 1-4/unsp chr kdny N18.3 Chronic kidney disease, stag e 3 (moderate) I26.99 Other pulmonary embolism wit hout acute cor pulmonale Z79.01 penitentiary (current) use of a nticoagulants M81.0 Age-related osteoporosis w/o current pathological fracture J45.909 Unspecified asthma, uncompli cated F41.9 Anxiety disorder, unspecifie d F32.89 Other specified depressive e pisodes E03.9 Hypothyroidism, unspecified G47.00 Insomnia, unspecified Office Visit 02/21/2020 10:00a [place] [facility] M.[facility]. Z01.810 Encounter for preprocedural cardiovascular examination M17.11 Unilateral primary osteoarth ritis, right knee I12.9 Hypertensive chronic kidney disease w stg 1-4/unsp chr kdny N18.3 Chronic kidney disease, stag e 3 (moderate) I26.99 Other pulmonary embolism wit hout acute cor pulmonale Office Visit 02/11/2020 10:30a [place] [facility] M81.0 Age-related osteoporosis w/o current pathological fracture I26.99 Other pulmonary embolism wit hout acute cor pulmonale Z79.01 long term care phlebotomist (current) use of a nticoagulants J45.909 Unspecified asthma, uncompli cated G47.00 Insomnia, unspecified F41.9 Anxiety disorder, unspecifie d R73.09 Other abnormal glucose K21.9 Gastro-esophageal reflux dis ease without esophagitis M17.12 Unilateral primary osteoarth ritis, left knee Office Visit 01/01/2020 8:00a [place] [facility] I26.99 Other pulmonary embolism wit hout acute cor pulmonale Z79.01 penitentiary (current) use of a nticoagulants M81.0 Age-related osteoporosis w/o current pathological fracture J45.909 Unspecified asthma, uncompli cated G47.00 Insomnia, unspecified F41.9 Anxiety disorder, unspecifie d E03.9 Hypothyroidism, unspecified M17.12 Unilateral primary osteoarth ritis, left knee R73.09 Other abnormal glucose K21.9 Gastro-esophageal reflux dis ease without esophagitis Assessments Date Code Description Provider 05/13/2020 R42 Dizziness and giddiness Tonja Cardenas [...] cor pulmonale Tonja Cardenas M.D. 05/13/2020 Z79.01 penitentiary (current) use of antic oagulants Tonja Cardenas [...] Other pulmonary embolism without acute cor pulmonale Tojna Cardenas M.D. 04/07/2020 Z79.01 penitentiary (current) use of antic oagulants Tonja Cardenas [...] cor pulmonale Tonja Cardenas M.D. 03/04/2020 Z79.01 penitentiary (current) use of antic oagulants Tonja Cardenas [...] cor pulmonale Tonja Cardenas M.D. 02/11/2020 Z79.01 penitentiary (current) use of antic oagulants Tonja Cardenas [...] 01/15/2020 J45.909 Unspecified asthma, uncomplicate d Jana Spain,[employer] 01/08/2020 R73.09 Other abnormal glucose Tonja Cardenas M.D. 01/08/2020 R73.09 Other abnormal glucose Lab Sched ule 01/01/2020 I26.99 Other pulmonary embolism without acute cor pulmonale Tonja Cardenas M.D. 01/01/2020 Z79.01 long term care phlebotomist (current) use of antic oagulants Tonja Cardenas M.D. 01/01/2020 M81.0 Age-related osteoporosis without current pathological fracture Tonja Cardenas M.D. 01/01/2020 J45.909 Unspecified asthma, uncomplicate d Tonja Cardenas M.D. 01/01/2020 G47.00 Insomnia, unspecified Tonja peacock M.D. 01/01/2020 F41.9 Anxiety disorder, unspecified Margarita Cardenas M.D. 01/01/2020 E03.9 Hypothyroidism, unspecified Sharon Cardenas M.D. 01/01/2020 M17.12 Unilateral primary osteoarthriti s, left knee Tonja Cardenas M.D. 01/01/2020 R73.09 Other abnormal glucose Tonja Cardenas M.D. 01/01/2020 K21.9 Gastro-esophageal reflux disease without esophagitis Tonja Cardenas M.D. Plan of Treatment Future Appointment(s):* 06/26/2020 10:00 am - Tonja Cardenas M.D. at [facility] * 07/22/2020 9:15 am - Tonja Cardenas M.D. at [facility] 05/13/2020 - Tonja Cardenas M.D.* R42 [...] embolism without acute cor pulmonale * Z79.01 penitentiary (current) use of anticoagulants * M81.0 Age-related [...]
--- OUTSIDE RECORDS SUMMARY | 2020-08-31 15:45 | CCD | Continuity of Care Document ---
Author Author Reta IZQUIERDO MD Organization Unknown Address [address] [place] [address], [facility] [address] [place] [address] Phone [phone] Care Team Providers Care Carbide Powder Processor Name Role Phone Tonja Cardenas MD AUTM [phone] Problems Active Problems Provider Date Pure hypercholesterolemia [...] Available Vital Signs Date Vital Result Comment 05/07/2020 1:42pm Body Temperature 97.5 F Height 60.75 inches 5'0.75" Weight 149.50 lb BMI (Body Mass Index) 28.5 kg/m2 03/12/2020 10:49am Body Temperature 97.2 F Results Test Acquired Date Facility Test Result H/L Range Note Prothrombin Time/Inr 06/23/2020 [facility] entr [address] [place] [address] (315)- - Prothrombin Time 18.2 seconds High 12.5-14.3 Inr 1.48 Normal 1 Comprehensive Metabolic Profil 06/23/2020 [facility] [address] [place] [address] (315)- - Glucose, Fasting 115 mg/dL High [...] 1.2 Normal 1.2-2.2 Complete Blood Count 06/23/2020 [facility] entr [address] [place] [address] (315)- - White Blood Count 8.8 10 [...] % Normal 0-0 Laboratory test finding 06/23/2020 [facility] [address] [place] [address] (315)- - Erythrocyte Sedimentation Rate 25 mm/hr Normal 0-30 Order 05/08/2020 [facility] nter Surgery <pending> Lab Results 02/25/2020 N2N/CCD [...] Ratio 1.26 CALC 1.00-1.90 Prothrombin Time/Inr 02/20/2020 [address] [place] [address] (315)- - Prothrombin Time 18.9 seconds High 11.8-14.0 Inr 1.61 Normal 6 Comprehensive Metabolic Profil 02/20/[address] [address] (315)- - Glucose, Fasting 108 mg/dL High [...] 1.2 Normal 1.2-2.2 Complete Blood Count 02/20/2020 [address] [place] [address] (315)- - White Blood Count 8.7 10 [...] % Normal 0-0 Laboratory test finding [facility] [address] [place] [address] (315)- - Erythrocyte Sedimentation Rate 18 mm/hr Normal 0-30 Order 01/16/2020 [facility]ter Surgery <pending> 1 THERAPUTIC [...] Little GFR Left ESRD GFR <15 on [employer] 3 100-125 mg/dL PRE-DIABET ES/FASTING >126 mg/dL DIABETES/FASTING 4 CHRONIC KIDNEY DISEASE STAGI NG PER NKF STAGE I & II GFR >= 60 NORMAL TO MILDLY DECREASED STAGE III GFR 30-59 MODERATELY DECREASED STAGE IV GFR 15-29 SEVERELY DECREASED STAGE V GFR <15 VERY LITTLE GFR LEFT ESRD GFR <15 ON [employer] 5 NOTE: RESULT VERIFIED. 6 THERAPUTIC HUMAN [...] Little GFR Left ESRD GFR <15 on [employer] Procedures Date Code Description Status 04/09/2020 06794 X-Ray Knee Ap & Lateral W/Obliqu es Three Views Completed 02/27/2020 90470 Arthroplasty "Total Knee" Medial & Lateral W/ Or W/O Patella Resu Completed 02/27/2020 09119 Arthroplasty "Total Knee" Medial & Lateral W/ Or W/O Patella Resu Completed Medical Devices Description No Information Available Encounters Type Date Location Provider Dx Diagnosis Office Visit 01/14/2020 9:30a [place] Kaleb Izquierdo MD M1 7.0 Bilateral primary osteoarthritis of knee Assessments Date Code Description Provider 05/07/2020 M17.12 Unilateral primary osteoarthriti s, left [...] M17.11 Unilateral primary osteoarthriti s, right knee aMrzena Austin PA-C 01/14/2020 M17.0 Bilateral primary osteoarthritis of knee Kaleb Izquierdo MD Plan of Treatment Future Appointment(s):* 07/22/2020 8:45 am - Kaleb Izquierdo MD at [place] * 07/02/2020 8:45 am - Adin Herring PA-C at [place] * 07/07/2020 7:30 am - Marzena Austin PA-C at [facility] Inpatient * 07/07/2020 7:30 am - Kaleb Izquierdo MD at [facility] Inpatient 05/07/2020 - Kaleb Izquierdo MD* M17.12 Unilateral primary osteoarthritis, left knee* Follow up:* post op Functional Status Description No Information Available Mental Status Description No Information Available Referrals Refer to Dr Reason for Referral Status Appt Date Adin Herring PA-C SURGERY NO AUTH REQUIRED FOR TOTAL LEFT KNEE([id number]) TO SURGERY NT Created [address] [place], [place] [id number] [phone] Adin Herring PA-C SURGERY NO AUTH REQUIRED FOR TOTAL LEFT KNEE([id number]) TO SURGERY NT Created [address] [place] [phone]
--- OUTSIDE RECORDS SUMMARY | 2020-08-31 15:45 | CCD | Continuity of Care Document ---
Author Author Reta Cardenas M.D. Organization Unknown Address [address] [facility] [address] [place] [address] Phone [phone] Care Team Providers Care Circulation Clerk Name Role Phone Tnoja Cardenas MD AUTM [phone] Riaz Parisi DO AUTM [phone] Ledy Funes NP AUTM [phone] Trina Weber MD AUTM [phone] Fritz Gorman MD AUTM Unavailable Ajay Izquierdo MD AUTM [phone] Problems Active Problems Provider Date Benign essential hypertension Tonja Cardenas M.D. Onset: 06/06/2011 Abnormal glucose level Tonja Cardenas M.D. Onset: 2010 Pure hypercholesterolemia oTnja Cardenas M.D. Onset: Osteoarthritis Tonja Cardenas M.D. Onset: 1 Asthma without status asthmaticus Tonja Cardenas M.D. On set: 06/06/2011 Allergic rhinitis Tonja Cardenas M.D. Onset: 1 Essential hypertension Tnoja Cardenas M.D. Onset: 2014 Hypothyroidism Tonja Cardenas [...] jett M.D. 03/30/2019 Escitalopram Oxalate 10mg Tablets take one tablet by mouth every day 90tabs Jana Spain FNP Rosuvastatin Calcium 5mg Tablets take one tablet by mouth every day 90tabs Terri Barker 04/27/2018 Nebulizer Device as p rescribed dx asthma Tonja Cardenas M.D. 01/12/2018 Zyrtec Allergy 10mg Tablets 1 by mouth every day 90tabs Tonja Cardenas M.D. 05/03/20 17 Preparation H 0.25-14-74.9% Ointment prn Tonja Cardenas M.D. 02/02/2016 TENS prn Tonja Cardenas M.D. 1 09/17/2013 Transport [place] [facility] [place] dysfunction. 1units Tonja Cardenas M.D. 05/29/2012 Fluticasone Propionate 50mcg/Act Suspension 1 sprays each nostril bid 3units Tonja villar M.D. 02/10/2012 Nebulizer Kit/Tubing/Mouthpiece K it use as directed 4units J45.909 Tonja Cardenas M.D. 12/08/19 12 Advair Diskus 250-50mcg/Dose Aeros ol 1 inhalation b.i.D. Nataly 3units Terri Barker 12/08/2011 Albuterol Sulfate (2 .5mg/3ML) 0.083% Nebulizer [...] 05/20/2018 Prevnar 13 U-Flu Given 05/20/2018 Influenza,Unspecified 52912 Given 02/09/2018 Shingrix 28269 Given 12/09/2017 Shingrix 09844 Given 06/14/2017 Adacel- Tetanus Diphtheria P ertussis (Age64 & Under) [id number] U-Flu Given 06/03/2017 Influenza,Unspecified U-PneuC Given 11/27/2015 Prevnar 13 [id number] Given 06/11/2015 Fluvirin Virus Vaccine 74184 01 55720 Given 04/25/2013 Zoster Vaccine [id number] 38144 Given 05/30/2008 Influenza Virus Vaccine 37127 Given 06/27/2007 Pneumovax 23 64660 Given 05/29/2007 Influenza Virus Vaccine 72040 Given 05/31/2002 Influenza Virus Vaccine 01319 Given 06/23/2001 Influenza Virus Vaccine Vital Signs [...] Date Facility Test Result H/L Range Note Comprehensive Chem Profile 05/13/2020 [facility] Insurance Verify Rep: Dr [place] [address] [phone] Glucose 105 mg/dL High 74 - 99 1 BUN 21 mg/dL High 7 - 18 [...] Low >60 GFR 53 mL/min Low >60 2 Laboratory test finding 05/13/2020 [facility] quinonez Insurance Verify Rep: Dr Ramí[place] [address] [phone] Thyroid Stimulating Hormone 6.74 uIU/mL High 0.3 6 - 3.74 Complete Blood Count 05/13/2020 [facility] Insurance Verify Rep: Dr [place]írez [place] [address] [phone] WBC 8.8 x10*3/UL 4.1 - 10.9 RBC [...] 2.0 - 7.8 Complete Blood Count 04/07/2020 [facility] Insurance Verify Rep: Dr [place]írez [place] [address] [phone] WBC 8.5 x10*3/UL 4.1 - 10.9 RBC [...] 2.0 - 7.8 Laboratory test finding 04/07/2020 [facility], Insurance Verify Rep: Dr Ramírez [place] [address] [phone] Magnesium 2.0 mg/dL 1.8 - 2.4 Comprehensive Chem Profile 04/07/2020 [facility] Insurance Verify Rep: Dr [place] [address] [phone] Glucose 106 mg/dL High 74 - 99 3 BUN 18 mg/dL 7 - 18 Creatinine [...] Low >60 GFR 48 mL/min Low >60 4 Laboratory test finding 04/07/2020 [facility], Insurance Verify Rep: Dr Ramírez [place] [address] [phone] Thyroid Stimulating Hormone 1.02 uIU/mL 0.3 6 - 3.74 Complete Blood Count 03/04/2020 [facility] Insurance Verify Rep: Dr [place] [place] [address] [phone] WBC 12.6 x10*3/UL High 4.1 - 10.9 5 RBC 4.45 x10*6/UL 4.20 - 6.30 Hemoglobin [...] 2.0 - 7.8 Comprehensive Chem Profile 03/04/2020 [facility], shemar Insurance Verify Rep: Dr [place] [address] [phone] Glucose 99 mg/dL 74 - 99 6 BUN 17 mg/dL 7 - 18 Creatinine 1.4 mg/dL High 0.6 - 1.3 Sodium 140 mEq/L 136 - 145 Potassium 4.3 mEq/L 3.5 - 5.1 Chloride 103 mEq/L 98 - 107 Carbon Dioxide 26 mEq/L 21 - 32 Calcium 8.2 mg/dL Low 8.5 - 10.1 7 Alk. Phosphatase 115 mg/dL 46 - 116 Total Bilirubin 0.8 mg/dL 0.2 - 1.0 Ast (Sgot) 32 U/L 15 - 37 Alt (SGPT) 47 U/L 12 - 78 Albumin 3.4 g/dL 3.4 - 5.0 Total Protein 6.5 g/dL 6.4 - 8.2 A/G Ratio 1.10 CALC 1.00 - 1.90 GFR 37 mL/min Low >60 GFR 44 mL/min Low >60 8 Basic Metabolic Panel 02/25/2020 [facility] Insurance Verify Rep: Dr Ramí[address] [place] [address] [phone] Glucose 128 mg/dL High 74 - 99 9 BUN 17 mg/dL 7 - 18 Creatinine 1.4 mg/dL High 0.6 - 1.3 Sodium 143 mEq/L 136 - 145 Potassium 4.1 mEq/L 3.5 - 5.1 Chloride 105 mEq/L 98 - 107 Carbon Dioxide 27 mEq/L 21 - 32 Calcium 9.2 mg/dL 8.5 - 10.1 GFR 37 mL/min Low >60 GFR 44 mL/min Low >60 10 Liver Function Profile 02/25/2020 [facility] Insurance Verify Rep: Dr Ramí[place] [address] [phone] Alk. Phosphatase 132 mg/dL High 46 - 116 Total Bilirubin 0.8 mg/dL 0.2 - 1.0 Ast (Sgot) 63 U/L High 15 - 37 Alt (SGPT) 107 U/L High 12 - 78 11 Albumin 3.9 g/dL 3.4 - 5.0 Total Protein 7.0 g/dL 6.4 - 8.2 Direct Bilirubin 0.2 mg/dL High 0.0 - 0.2 A/G Ratio 1.26 CALC 1.00 - 1.90 Basic Metabolic Panel 02/20/2020 [facility] Insurance Verify Rep: Dr [address] [place] [address] [phone] Glucose 106 mg/dL High 74 - 99 12 BUN 14 mg/dL 7 - 18 Creatinine 1.5 mg/dL High 0.6 - 1.3 Sodium 144 mEq/L 136 - 145 Potassium 4.2 mEq/L 3.5 - 5.1 Chloride 106 mEq/L 98 - 107 Carbon Dioxide 24 mEq/L 21 - 32 Calcium 10.0 mg/dL 8.5 - 10.1 GFR 34 mL/min Low >60 GFR 41 mL/min Low >60 13 Hepatitis Profile 02/20/2020 [facility] [address] [place] [address] [phone] Hepatitis C Virus Rosi Index 0.1 INDEX Normal <0.8 14 Hepatitis B Surface Antigen NEGATIVE Normal Negative Hepatitis B Core Antibody Igm NEGATIVE Normal Negative Hepatitis A Antibody Igm NEGATIVE Normal Negative Laboratory test finding 02/20/2020 [facility] [address] [place] [address] [phone] Erythrocyte Sedimentation Rate 18 mm/hr Normal 0 -30 Complete Blood Count 02/20/2020 [facility] enter [address] [place] [address] [phone] White Blood Count 8.7 10 Normal 4.0-10.0 [...] Blood Cell % 0.0 % Normal 0-0 Comprehensive Metabolic Profil 02/20/2020 [id number] [place] [address] [phone] Glucose, Fasting 108 mg/dL High 70-100 Blood [...] Normal 3.2-5.2 Albumin/Globulin Ratio 1.2 Normal 1.2-2.2 Prothrombin Time/Inr 02/20/2020 [facility] [address] [place] [address] [phone] Prothrombin Time 18.9 seconds High 11.8-14.0 Inr 1.61 Normal 16 Complete Blood Count 02/11/2020 [facility] Insurance Verify Rep: Dr Ramírez [place] [address] [phone] WBC 8.7 x10*3/UL 4.1 - 10.9 RBC [...] 2.0 - 7.8 Basic Metabolic Panel 02/11/2020 [facility] Insurance Verify Rep: Dr Ramírez [place] [address] [phone] Glucose 96 mg/dL 74 - 99 17 BUN 17 mg/dL 7 - 18 Creatinine 1.6 mg/dL High 0.6 - 1.3 Sodium 142 mEq/L 136 - 145 Potassium 3.9 mEq/L 3.5 - 5.1 Chloride 103 mEq/L 98 - 107 Carbon Dioxide 24 mEq/L 21 - 32 Calcium 7.8 mg/dL Low 8.5 - 10.1 18 GFR 31 mL/min Low >60 GFR 38 mL/min Low >60 19 A1c 02/11/2020 [facility] Insurance Verify Rep: Dr Ramí[address] [place] [address] [phone] Hba1c 5.9 g/dL High 4.8 - 5.6 20 Est Avg Glucose 123 mg/dL High 60 - 110 Basic Metabolic Panel 01/08/2020 [facility] Verify Rep: Dr Ramírez Nascimento [place], [place] [id number] [phone] Glucose 130 mg/dL High 74 - 99 21 BUN 15 mg/dL 7 - 18 Creatinine 1.1 mg/dL 0.6 - 1.3 Sodium 144 mEq/L 136 - 145 Potassium 5.2 mEq/L High 3.5 - 5.1 22 Chloride 106 mEq/L 98 - 107 Carbon Dioxide 27 mEq/L 21 - 32 Calcium 9.4 mg/dL 8.5 - 10.1 GFR 48 mL/min Low >60 GFR 59 mL/min Low >60 23 Laboratory test finding 01/01/2020 [facility] Insurance Verify Rep: Dr Ramírez Nascimento [place] [id number] [phone] Vitamin D 25-Hydroxy 44.6 24.0 - 80.0 24 Complete Blood Count 01/01/2020 [facility] Insurance Verify Rep: Dr Ramírez [place] [address] [phone] WBC 7.3 x10*3/UL 4.1 - 10.9 RBC [...] 2.0 - 7.8 Basic Metabolic Panel 01/01/2020 [facility] Insurance Verify Rep: Dr [place]í[address] [place] [address] [phone] Glucose 153 mg/dL High 74 - 99 25 BUN 17 mg/dL 7 - 18 Creatinine 1.2 mg/dL 0.6 - 1.3 Sodium 144 mEq/L 136 - 145 Potassium 4.2 mEq/L 3.5 - 5.1 Chloride 105 mEq/L 98 - 107 Carbon Dioxide 28 mEq/L 21 - 32 Calcium 9.5 mg/dL 8.5 - 10.1 GFR 44 mL/min Low >60 GFR 53 mL/min Low >60 26 1 100-125 mg/dL PRE-DIABET ES/FASTING >126 mg/dL DIABETES/FASTING 2 CHRONIC KIDNEY DISEASE STAGI NG PER NKF STAGE I & II GFR >= 60 NORMAL TO MILDLY DECREASED STAGE III GFR 30-59 MODERATELY DECREASED STAGE IV GFR 15-29 SEVERELY DECREASED STAGE V GFR <15 VERY LITTLE GFR LEFT ESRD GFR <15 ON FURNACE PACKER 3 100-125 mg/dL PRE-DIABET ES/FASTING >126 mg/dL DIABETES/FASTING 4 CHRONIC KIDNEY DISEASE STAGI NG PER NKF STAGE I & II GFR >= 60 NORMAL TO MILDLY DECREASED STAGE III GFR 30-59 MODERATELY DECREASED STAGE IV GFR 15-29 SEVERELY DECREASED STAGE V GFR <15 VERY LITTLE GFR LEFT ESRD GFR <15 ON FURNACE PACKER 5 NOTE: CBC VERIFIED 6 100-125 mg/dL PRE-DIABET ES/FASTING >126 mg/dL DIABETES/FASTING 7 NOTE: RESULT VERIFIED. 8 CHRONIC KIDNEY DISEASE STAGI NG PER NKF STAGE I & II GFR >= 60 NORMAL TO MILDLY DECREASED STAGE III GFR 30-59 MODERATELY DECREASED STAGE IV GFR 15-29 SEVERELY DECREASED STAGE V GFR <15 VERY LITTLE GFR LEFT ESRD GFR <15 ON FURNACE PACKER 9 100-125 mg/dL PRE-DIABET ES/FASTING >126 mg/dL DIABETES/FASTING 10 CHRONIC KIDNEY DISEASE STAGI NG PER NKF STAGE I & II GFR >= 60 NORMAL TO MILDLY DECREASED STAGE III GFR 30-59 MODERATELY DECREASED STAGE IV GFR 15-29 SEVERELY DECREASED STAGE V GFR <15 VERY LITTLE GFR LEFT ESRD GFR <15 ON FURNACE PACKER 11 NOTE: RESULT VERIFIED. 12 100-125 mg/dL PRE-DIABET ES/FASTING >126 mg/dL DIABETES/FASTING 13 CHRONIC KIDNEY DISEASE STAGI NG PER NKF STAGE I & II GFR >= 60 NORMAL TO MILDLY DECREASED STAGE III GFR 30-59 MODERATELY DECREASED STAGE IV GFR 15-29 SEVERELY DECREASED STAGE V GFR <15 VERY LITTLE GFR LEFT ESRD GFR <15 ON FURNACE PACKER 14 Negative Not infected with HCV, unless recent infection is suspected or other evidence exists to indicate HCV infection. 15 Units are mL/min/1.73 m2 Chronic Kidney Disease Staging per NKF: Stage I & II GFR >=60 Normal to Mildly Decreased Stage III GFR 30-59 Moderately Decreased Stage IV GFR 15-29 Severely Decreased Stage V GFR <15 Very Little GFR Left ESRD GFR <15 on FURNACE PACKER 16 THERAPUTIC HUMAN INR VALUES INDICATIONS NORMAL RANGES PROPHYLAXIS/TREATMENT OF: VENOUS THROMBOSIS 2.0-3.0 PULMONARY EMBOLISM 2.0-3.0 PREVENTION OF SYSTEMIC EMBOLISM FROM: TISSUE HEART VALVES 2.0-3.0 ACUTE MYOCARDIAL INFARCTION 2.0-3.0 VALVULAR HEART DISEASE 2.0-3.0 ATRIAL FIBRILLATION 2.0-3.0 MECHANICAL VALVES(HIGH RISK) 2.5-3.5 RECURRENT MYOCARDIAL INFARCTION 2.5-3.5 17 100-125 mg/dL PRE-DIABET ES/FASTING >126 mg/dL DIABETES/FASTING 18 NOTE: RESULT VERIFIED. 19 CHRONIC KIDNEY DISEASE STAGI NG PER NKF STAGE I & II GFR >= 60 NORMAL TO MILDLY DECREASED STAGE III GFR 30-59 MODERATELY DECREASED STAGE IV GFR 15-29 SEVERELY DECREASED STAGE V GFR <15 VERY LITTLE GFR LEFT ESRD GFR <15 ON FURNACE PACKER 20 Lab Result Notes: Pre-Diabetes 5.7 - 6.4 % Diabetes = or > 6.5% 21 100-125 mg/dL PRE-DIABET ES/FASTING >126 mg/dL DIABETES/FASTING 22 NOTE: RESULT VERIFIED. NO VISIBLE HEMOLYSIS. 23 CHRONIC KIDNEY DISEASE STAGI NG PER NKF STAGE I & II GFR >= 60 NORMAL TO MILDLY DECREASED STAGE III GFR 30-59 MODERATELY DECREASED STAGE IV GFR 15-29 SEVERELY DECREASED STAGE V GFR <15 VERY LITTLE GFR LEFT ESRD GFR <15 ON FURNACE PACKER 24 This test was performed [employer]STATZ Vitamin D immunoassay kit. Values obtained with different assay methods should not be used interchangeably. 25 100-125 mg/dL PRE-DIABET ES/FASTING >126 mg/dL DIABETES/FASTING 26 CHRONIC KIDNEY DISEASE STAGI NG PER NKF STAGE I & II GFR >= 60 NORMAL TO MILDLY DECREASED STAGE III GFR 30-59 MODERATELY DECREASED STAGE IV GFR 15-29 SEVERELY DECREASED STAGE V GFR <15 VERY LITTLE GFR LEFT ESRD GFR <15 ON FURNACE PACKER Procedures Date Code Description Status 01/15/2020 00812 Spirometry Completed 09/14/2019 [id number] Mammogram Completed 09/04/2019 [id number] Bone Mineral Density Test Comple sydni 06/01/2018 [id number] Mammogram Completed 04/26/2017 [id number] Bone Mineral Density Test Comple sydni 04/26/2017 [id number] Mammogram Completed 12/25/2015 [id number] Mammogram Completed 09/04/2015 [id number] Colonoscopy Completed 08/21/2014 [id number] Mammogram Completed 01/02/2014 [id number] Diabetic Retinal Eye Exam Comple sydni 08/14/2013 [id number] Mammogram Completed 03/28/2012 [id number] Colonoscopy Completed 01/14/2011 [id number] Mammogram Completed 01/13/2011 [id number] Bone Mineral Density Test Comple sydni 04/25/2007 [id number] Bone Mineral Density Test Comple sydni 11/17/2006 [id number] Mammogram Completed Medical Devices Description No Information Available Encounters Type Date Location Provider Dx Diagnosis Office Visit 05/13/2020 9:00a [facility] M.D. R42 Dizziness and giddiness J30.9 Allergic rhinitis, unspecifi ed J45.909 Unspecified asthma, uncompli cated R07.81 Pleurodynia R74.0 Nonspec elev of levels of tr ansamns & lactic acid dehydrgnse I12.9 Hypertensive chronic kidney disease w stg 1-4/unsp chr kdny N18.3 Chronic kidney disease, stag e 3 (moderate) I26.99 Other pulmonary embolism wit hout acute cor pulmonale Z79.01 senior living (current) use of a nticoagulants M81.0 Age-related osteoporosis w/o current pathological fracture F41.9 Anxiety disorder, unspecifie d E03.9 Hypothyroidism, unspecified Office Visit 04/07/2020 11:15a [facility] M.D. J30.9 Allergic rhinitis, unspecifi ed I12.9 Hypertensive chronic kidney disease w stg 1-4/unsp chr kdny N18.3 Chronic kidney disease, stag e 3 (moderate) I26.99 Other pulmonary embolism wit hout acute cor pulmonale Z79.01 senior living (current) use of a nticoagulants M81.0 Age-related osteoporosis w/o current pathological fracture E03.9 Hypothyroidism, unspecified F41.9 Anxiety disorder, unspecifie d Office Visit 03/04/2020 10:00a [facility] 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 Z01.810 Encounter for preprocedural cardiovascular examination M17.11 Unilateral primary osteoarth ritis, right knee I12.9 Hypertensive chronic kidney disease w stg 1-4/unsp chr kdny N18.3 Chronic kidney disease, stag e 3 (moderate) I26.99 Other pulmonary embolism wit hout acute cor pulmonale Office Visit 02/11/2020 10:30a [facility] M.[facility]. 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 Dimitry Cardenas M.D. 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 02/11/2020 Z79.01 senior living (current) use of antic oagulants Tonja Cardenas [...] 01/15/2020 J45.909 Unspecified asthma, uncomplicate d Jana Spain,[facility] 01/08/2020 R73.09 Other abnormal glucose Tonja Cardenas M.D. 01/08/2020 R73.09 Other abnormal glucose Lab Sched [facility] 01/01/2020 I26.99 Other pulmonary embolism without acute cor pulmonale Tonja Cardenas M.D. 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 Plan of Treatment Future Appointment(s):* 07/22/2020 9:15 am - [facility] 05/13/2020 - Tonja Cardenas M.D.* R42 [...] embolism without acute cor pulmonale * Z79.01 media technician (current) use of anticoagulants * M81.0 Age-related [...]
--- OUTSIDE RECORDS SUMMARY | 2020-08-31 15:48 | CCD ---
Author Author [facility] Organization [facility] Address Unknown Phone Unavailable Care Team Providers Care Software Application Tester Name Role Phone Magali, Veronica DO Unavailable Unavailable Magali, Veronica DO Unavailable Unavailable Amgali, Veronica DO Unavailable Unavailable Magali, Veronica DO Unavailable Unavailable Magali, Veronica DO Unavailable Unavailable Magali, Veronica DO Unavailable Unavailable Magali, Veronica DO Unavailable Unavailable Magali, Veronica DO Unavailable Unavailable Magali, Veronica DO Unavailable Unavailable Magali, Veronica DO Unavailable Unavailable Magali, Veronica DO Unavailable Unavailable Magali, Veronica DO Unavailable Unavailable Magali, Veronica DO Unavailable Unavailable Magali, Veronica DO Unavailable Unavailable Magali, Veronica DO Unavailable Unavailable Magali, Veronica DO Unavailable Unavailable Magali, Veronica DO Unavailable Unavailable Magali, Veronica DO Unavailable Unavailable Magali, Veronica DO Unavailable Unavailable Magali, Veronica DO Unavailable Unavailable Magali, Veronica DO Unavailable Unavailable Magali, Veronica DO Unavailable Unavailable Magali, Veronica DO Unavailable Unavailable Magali, Veronica DO Unavailable Unavailable Magali, Veronica DO Unavailable Unavailable Magali, Veronica DO Unavailable Unavailable Magali, Veronica DO Unavailable Unavailable Magali, Veronica DO Unavailable Unavailable Magali, Veronica DO Unavailable Unavailable Magali, Veronica DO Unavailable Unavailable Magali, Veronica DO Unavailable Unavailable Magali, Veronica DO Unavailable Unavailable Magali, Veronica DO Unavailable Unavailable Magali, Veronica DO Unavailable Unavailable Magali, Veronica DO Unavailable Unavailable Magali, Veronica DO Unavailable Unavailable Magali, Veronica DO Unavailable Unavailable Magali, Veronica DO Unavailable Unavailable Magali, Veronica DO Unavailable Unavailable Magali, Veronica DO Unavailable Unavailable Magali, Veronica DO Unavailable Unavailable Magali, Veronica DO Unavailable Unavailable Magali, Veronica DO Unavailable Unavailable Magali, Veronica DO Unavailable Unavailable Magali, Veronica DO Unavailable Unavailable Magali, Veronica DO Unavailable Unavailable Magali, Veronica DO Unavailable Unavailable Magali, Veronica DO Unavailable Unavailable Magali, Veronica DO Unavailable Unavailable Magali, Veronica DO Unavailable Unavailable Magali, Veronica DO Unavailable Unavailable Magali, Veronica DO Unavailable Unavailable Magali, Veronica DO Unavailable Unavailable Magali, Veronica DO Unavailable Unavailable Magali, Veronica DO Unavailable Unavailable Magali, Veronica DO Unavailable Unavailable Magali, Veronica DO Unavailable Unavailable Magali, Veronica DO Unavailable Unavailable Magali, Veronica DO Unavailable Unavailable Magali, Veronica DO Unavailable Unavailable Magali, Veronica DO Unavailable Unavailable Magali, Veronica DO Unavailable Unavailable Magali, Veronica DO Unavailable Unavailable Magali, Veronica DO Unavailable Unavailable Magali, Veronica DO Unavailable Unavailable Magali, Vernoica DO Unavailable Unavailable Magali, Veronica DO Unavailable Unavailable Magali, Veronica DO Unavailable Unavailable Magali, Veronica DO Unavailable Unavailable Magali, Veronica DO Unavailable Unavailable Magali, Veronica DO Unavailable Unavailable Magali, Veronica DO Unavailable Unavailable Magali, Veronica DO Unavailable Unavailable Magali, Veronica DO Unavailable Unavailable Magali, Veronica DO Unavailable Unavailable Magali, Veronica DO Unavailable Unavailable Magali, Veronica DO Unavailable Unavailable Magali, Veronica DO Unavailable Unavailable Magali, Veronica DO Unavailable Unavailable Magali, Veronica DO Unavailable Unavailable Magali, Veronica DO Unavailable Unavailable Magali, Veronica DO Unavailable Unavailable Maglai, Veronica DO Unavailable Unavailable Magali, Veronica DO Unavailable Unavailable Magali, Veronica DO Unavailable Unavailable Magali, Veronica DO Unavailable Unavailable Magali, Veronica DO Unavailable Unavailable Magali, Veronica DO Unavailable Unavailable Magali, Veronica DO Unavailable Unavailable Magali, Veronica DO Unavailable Unavailable Magali, Veronica DO Unavailable Unavailable Magali, Veronica DO Unavailable Unavailable Magali, Veronica DO Unavailable Unavailable Magali, Veronica DO Unavailable Unavailable Magali, Veronica DO Unavailable Unavailable Magali, Veronica DO Unavailable Unavailable Magali, Veronica DO Unavailable Unavailable Magali, Veronica DO Unavailable Unavailable Magali, Veronica DO Unavailable Unavailable Magali, Veronica DO Unavailable Unavailable Magali, Veronica DO Unavailable Unavailable Magali, Veronica DO Unavailable Unavailable Magali, Veronica DO Unavailable Unavailable Magali, Veronica DO Unavailable Unavailable Magali, Veronica DO Unavailable Unavailable Magali, Veronica DO Unavailable Unavailable Magali, Veronica DO Unavailable Unavailable Magali, Veronica DO Unavailable Unavailable Magali, Veronica DO Unavailable Unavailable Magali, Veronica DO Unavailable Unavailable Magali, Veronica DO Unavailable Unavailable Magali, Veronica DO Unavailable Unavailable Magali, Veronica DO Unavailable Unavailable Magali, Veronica DO Unavailable Unavailable Magali, Veronica DO Unavailable Unavailable Magali, Veronica DO Unavailable Unavailable Magali, Veronica DO Unavailable Unavailable Magali, Veronica DO Unavailable Unavailable Magali, Veronica DO Unavailable Unavailable Magali, Veronica DO Unavailable Unavailable Magali, Veronica DO Unavailable Unavailable Magali, Veronica DO Unavailable Unavailable Magali, Veronica DO Unavailable Unavailable Magali, Veronica DO Unavailable Unavailable Magali, Veronica DO Unavailable Unavailable Magali, Veronica DO Unavailable Unavailable Magali, Veronica DO Unavailable Unavailable Magali, Veronica DO Unavailable Unavailable Magali, Veronica DO Unavailable Unavailable Magali, Veronica DO Unavailable Unavailable Magali, Veronica DO Unavailable Unavailable Magali, Veronica DO Unavailable Unavailable Magali, Veronica DO Unavailable Unavailable Magali, Veronica DO Unavailable Unavailable Magali, Veronica DO Unavailable Unavailable Magali, Veronica DO Unavailable Unavailable Magali, Veronica DO Unavailable Unavailable Magali, Veronica DO Unavailable Unavailable Magali, Veronica DO Unavailable Unavailable Magali, Veronica DO Unavailable Unavailable Magali, Veronica DO Unavailable Unavailable Magali, Veronica DO Unavailable Unavailable Magali, Veronica DO Unavailable Unavailable Magali, Veronica DO Unavailable Unavailable Gianluca Cardenas MD Unavailable Unavailable Gianluca Cardenas MD Unavailable Unavailable Gianluca Cardenas MD Unavailable Unavailable RonaldGianluca MD Unavailable Unavailable RonaldGianluca MD Unavailable Unavailable RonaldGianluca MD Unavailable Unavailable RonaldGianluca MD Unavailable Unavailable RonaldGianluca MD Unavailable Unavailable RonaldGianluca MD Unavailable Unavailable RonaldGianluca MD Unavailable Unavailable RonaldGianluca MD Unavailable Unavailable RonaldGianluca salinas MD Unavailable Unavailable RonaldGianluca MD Unavailable Unavailable RonaldGianluca MD Unavailable Unavailable RonaldGianluca MD Unavailable Unavailable RonaldGianluca MD Unavailable Unavailable RonaldGianluca MD Unavailable Unavailable RonaldGianluca MD Unavailable Unavailable RonaldGianluca MD Unavailable Unavailable RonaldGianluca MD Unavailable Unavailable RonaldGianluca MD Unavailable Unavailable RonaldGianluca ruiz MD Unavailable Unavailable RonaldGianluca salinas MD Unavailable Unavailable Gianluca Cardenas MD Unavailable Unavailable Gianluca Cardenas MD Unavailable Unavailable Gianluca Cardenas MD Unavailable Unavailable Gianluca Cardenas MD Unavailable Unavailable Gianluca Cardenas MD Unavailable Unavailable Gianluca Cardenas MD Unavailable Unavailable Gianluca Cardenas MD Unavailable Unavailable Gianluca Cardenas MD Unavailable Unavailable Gianluca Cardenas MD Unavailable Unavailable Gianluca Cardenas MD Unavailable Unavailable Gianluca Cardenas MD Unavailable Unavailable Gianluca Cardenas MD Unavailable Unavailable Gianluca Cardenas MD Unavailable Unavailable Gianluca Cardenas MD Unavailable Unavailable Gianluca Cardenas MD Unavailable Unavailable Gianluca Cardenas MD Unavailable Unavailable Gianluca Cardenas MD Unavailable Unavailable Gianluca Cardenas MD Unavailable Unavailable Gianluca Cardenas MD Unavailable Unavailable Gianluca Cardenas MD Unavailable Unavailable Gianluca Cardenas MD Unavailable Unavailable Gianluca Cardenas MD Unavailable Unavailable Gianluca Cardenas MD Unavailable Unavailable Gianluca Cardenas MD Unavailable Unavailable Gianluca Cardenas MD Unavailable Unavailable Gianluca Cardenas MD Unavailable Unavailable Gianluca Cardenas MD Unavailable Unavailable Ginaluca Cardenas MD Unavailable Unavailable Gianluca Cardenas MD Unavailable Unavailable RonaldGianluca ruiz MD Unavailable Unavailable RonaldGianluca MD Unavailable Unavailable Gianluca Cardenas MD Unavailable Unavailable Gianluca Cardenas MD Unavailable Unavailable Gianluca Cardenas MD Unavailable Unavailable Gianluca Cardenas MD Unavailable Unavailable Gianluca Cardenas MD Unavailable Unavailable Gianluca Cardenas MD Unavailable Unavailable Gianluca Cardenas MD Unavailable Unavailable Gianluca Cardenas MD Unavailable Unavailable Gianluca Cardenas MD Unavailable Unavailable Gianluca Cardenas MD Unavailable Unavailable Gianluca Cardenas MD Unavailable Unavailable Gianluca Cardenas MD Unavailable Unavailable Gianluca Cardenas MD Unavailable Unavailable Gianluca Cardenas MD Unavailable Unavailable Gianluca Cardenas MD Unavailable Unavailable Gianluca Cardenas MD Unavailable Unavailable Gianluca Cardenas MD Unavailable Unavailable Gianluca Cardenas MD Unavailable Unavailable Gianluca Cardenas MD Unavailable Unavailable Gianluca Cardenas MD Unavailable Unavailable Gianluca Cardenas MD Unavailable Unavailable Gianluca Cardenas MD Unavailable Unavailable Gianluca Cardenas MD Unavailable Unavailable Gianluca Cardenas MD Unavailable Unavailable Herring, M Barratt PA Unavailable Unavailable Herring, M Barratt PA Unavailable Unavailable Herring, M Barratt PA Unavailable Unavailable Herring, M Barratt PA Unavailable Unavailable Herring, M Barratt PA Unavailable Unavailable Herring, M Barratt PA Unavailable Unavailable Herring, M Barratt PA Unavailable Unavailable Herring, M Barratt PA Unavailable Unavailable Herring, M Barratt PA Unavailable Unavailable Herring, M Barratt PA Unavailable Unavailable Herring, M Barratt PA Unavailable Unavailable Herring, M Barratt PA Unavailable Unavailable Herring, M Barratt PA Unavailable Unavailable Herring, M Barratt PA Unavailable Unavailable Herring, M Barratt PA Unavailable Unavailable Herring, M Barratt PA Unavailable Unavailable Herring, M Barratt PA Unavailable Unavailable Herring, M Barratt PA Unavailable Unavailable Herring, M Barratt PA Unavailable Unavailable Herring, M Barratt PA Unavailable Unavailable Herring, M Barratt PA Unavailable Unavailable Herring, M Barratt PA Unavailable Unavailable Herring, M Barratt PA Unavailable Unavailable Herring, M Barratt PA Unavailable Unavailable Herring, M Barratt PA Unavailable Unavailable Herring, M Barratt PA Unavailable Unavailable Herring, M Barratt PA Unavailable Unavailable Gianluca SIM MD Unavailable Unavailable Gianluca SIM MD Unavailable Unavailable Gianluca SIM MD Unavailable Unavailable Gianluca SIM MD Unavailable Unavailable Gianluca SIM MD Unavailable Unavailable Gianluca SIM MD Unavailable Unavailable Gianluca SIM MD Unavailable Unavailable Gianluca SIM MD Unavailable Unavailable Gianluca SIM MD Unavailable Unavailable Gianluca SIM MD Unavailable Unavailable Gianluca SIM MD Unavailable Unavailable Gianluca SIM MD Unavailable Unavailable Gianluca SIM MD Unavailable Unavailable Gianluca SIM MD Unavailable Unavailable Gianluca SIM MD Unavailable Unavailable Gianluca SIM MD Unavailable Unavailable Gianluca SIM MD Unavailable Unavailable Gianluca SIM MD Unavailable Unavailable Gianluca SIM MD Unavailable Unavailable Gianluca SIM MD Unavailable Unavailable Gianluca SIM MD Unavailable Unavailable Gianluca SIM MD Unavailable Unavailable Gianluca SIM MD Unavailable Unavailable Gianluca SIM MD Unavailable Unavailable Gianluca SIM MD Unavailable Unavailable Gianluca SIM MD Unavailable Unavailable Gianluca SIM MD Unavailable Unavailable Gianluca SIM MD Unavailable Unavailable Gianluca SIM MD Unavailable Unavailable Gianluca SIM MD Unavailable Unavailable Gianluca SIM MD Unavailable Unavailable Gianluca SIM MD Unavailable Unavailable Gianluca SIM MD Unavailable Unavailable Gianluca SIM MD Unavailable Unavailable ERIKA, LALO PA Unavailable Unavailable ERIKA, LALO PA Unavailable Unavailable ERIKA, LALO PA Unavailable Unavailable ERIKA, LALO PA Unavailable Unavailable ERIKA, LALO PA Unavailable Unavailable ERIKA, LALO PA Unavailable Unavailable ERIKA, LALO PA Unavailable Unavailable ERIKA, LALO PA Unavailable Unavailable ERIKA, LALO PA Unavailable Unavailable ERIKA, LALO PA Unavailable Unavailable ERIKA, LALO PA Unavailable Unavailable ERIKA, LALO PA Unavailable Unavailable ERIKA, LALO PA Unavailable Unavailable ERIKA, LALO PA Unavailable Unavailable ERIKA, LALO PA Unavailable Unavailable ERIKA, LALO PA Unavailable Unavailable ERIKA, LALO PA Unavailable Unavailable ERIKA, LALO PA Unavailable Unavailable ERIKA, LALO PA Unavailable Unavailable ERIKA, LALO PA Unavailable Unavailable ERIKA, LALO PA Unavailable Unavailable ERIKA, LALO PA Unavailable Unavailable ERIKA, LALO PA Unavailable Unavailable ERIKA, LALO PA Unavailable Unavailable ERIKA, LALO PA Unavailable Unavailable ERIKA, LALO PA Unavailable Unavailable ERIKA, LALO PA Unavailable Unavailable ERIKA, LALO PA Unavailable Unavailable ERIKA, LALO PA Unavailable Unavailable ERIKA, LALO PA Unavailable Unavailable ERIKA, LALO PA Unavailable Unavailable ERIKA, LALO PA Unavailable Unavailable ERIKA, LALO PA Unavailable Unavailable ERIKA, LALO PA Unavailable Unavailable ERIKA, LALO PA Unavailable Unavailable ERIKA, LALO PA Unavailable Unavailable ERIKA, LALO PA Unavailable Unavailable ERIKA, LALO PA Unavailable Unavailable Gerson Izquierdo MD Unavailable Unavailable Gerson Izquierdo MD Unavailable Unavailable VanGerson gaytan MD Unavailable Unavailable Gerson Izquierdo MD Unavailable Unavailable Gerson Izquierdo MD Unavailable Unavailable Gerson Izquierdo MD Unavailable Unavailable Gerson Izquierdo MD Unavailable Unavailable Gerson Izquierdo MD Unavailable Unavailable Gerson Izquierdo MD Unavailable Unavailable Gerson Izquierdo MD Unavailable Unavailable Gerson Izquierdo MD Unavailable Unavailable Gerson Izquierdo MD Unavailable Unavailable Gerson Izquierdo MD Unavailable Unavailable Gerson Izquierdo MD Unavailable Unavailable Gerson Izquierdo MD Unavailable Unavailable Gerson Izquierdo MD Unavailable Unavailable Gerson Izquierdo MD Unavailable Unavailable Gerson Izquierdo MD Unavailable Unavailable Gerson Izquierdo MD Unavailable Unavailable Gerson Izquierdo MD Unavailable Unavailable Gerson Izquierdo MD Unavailable Unavailable Gerson Izquierdo MD Unavailable Unavailable Gerson Izquierdo MD Unavailable Unavailable Gerson Izquierdo MD Unavailable Unavailable Gerson Izquierdo MD Unavailable Unavailable Gerson Izquierdo MD Unavailable Unavailable Gerson Izquierdo MD Unavailable Unavailable Gerson Izquierdo MD Unavailable Unavailable Gerson Izquierdo MD Unavailable Unavailable Gerson Izquierdo MD Unavailable Unavailable Gerson Izquierdo MD Unavailable Unavailable Gerson Izquierdo MD Unavailable Unavailable Gerson Izquierdo MD Unavailable Unavailable Gerson Izquierdo MD Unavailable Unavailable Gerson Izquierdo MD Unavailable Unavailable Gerson Izquierdo MD Unavailable Unavailable Gerson Izquierdo MD Unavailable Unavailable Gerson Izquierdo MD Unavailable Unavailable Gerson Izquierdo MD Unavailable Unavailable Gerson Izquierdo MD Unavailable Unavailable Gerson Izquierdo MD Unavailable Unavailable Gerson Izquierdo MD Unavailable Unavailable Gerson Izquierdo MD Unavailable Unavailable Gerson Izquierdo MD Unavailable Unavailable Doremus, E Jana PA Unavailable Unavailable Doremus, E Jana PA Unavailable Unavailable Doremus, E Jana PA Unavailable Unavailable Doremus, E Jana PA Unavailable Unavailable Doremus, E Jana PA Unavailable Unavailable Doremus, E Jana PA Unavailable Unavailable Doremus, E Jana PA Unavailable Unavailable Doremus, E Jana PA Unavailable Unavailable Doremus, E Jana PA Unavailable Unavailable Doremus, E Jana PA Unavailable Unavailable Doremus, E Jana PA Unavailable Unavailable Doremus, E Jana PA Unavailable Unavailable Doremus, E Jana PA Unavailable Unavailable Doremus, E Jana PA Unavailable Unavailable Doremus, E Jana PA Unavailable Unavailable Doremus, E Jana PA Unavailable Unavailable Doremus, E Jana PA Unavailable Unavailable Doremus, E Jana PA Unavailable Unavailable Doremus, E Jana PA Unavailable Unavailable Gianluca Cardenas MD Unavailable Unavailable Gianluca Cardenas MD Unavailable Unavailable Gianluca Cardenas MD Unavailable Unavailable Gianluca Cardenas MD Unavailable Unavailable Gianluca Cardenas MD Unavailable Unavailable Gianluca Cardenas MD Unavailable Unavailable Gianluca Cardenas MD Unavailable Unavailable Gianluca Cardenas MD Unavailable Unavailable Gianluca Cardenas MD Unavailable Unavailable Gianluca Cardenas MD Unavailable Unavailable Gianluca Cardenas MD Unavailable Unavailable Gianluca Cardenas MD Unavailable Unavailable Gianluca Cardenas MD Unavailable Unavailable Gianluca Cardenas MD Unavailable Unavailable Gianluca Cardenas MD Unavailable Unavailable Gianluca Cardenas MD Unavailable Unavailable Gianluca Cardenas MD Unavailable Unavailable Gianluca Cardenas MD Unavailable Unavailable Gianluca Cardenas MD Unavailable Unavailable Gianluca Cardenas MD Unavailable Unavailable Gianluca Cardenas MD Unavailable Unavailable RonaldGianluca MD Unavailable Unavailable RonaldGianluca MD Unavailable Unavailable RonaldGianluca MD Unavailable Unavailable RonaldGianluca MD Unavailable Unavailable RonaldGianluca MD Unavailable Unavailable RonaldGianluca MD Unavailable Unavailable RonaldGianluca MD Unavailable Unavailable RonaldGianluca MD Unavailable Unavailable RonaldGianluca salinas MD Unavailable Unavailable RonaldGianluca MD Unavailable Unavailable RonaldGianluca MD Unavailable Unavailable RonaldGianluca MD Unavailable Unavailable RonaldGianluca MD Unavailable Unavailable RonaldGianluca MD Unavailable Unavailable RonaldGianluca MD Unavailable Unavailable RonaldGianluca MD Unavailable Unavailable RonaldGianluca MD Unavailable Unavailable RonaldGianluca MD Unavailable Unavailable RonaldGianluca ruiz MD Unavailable Unavailable RonaldGianluca salinas MD Unavailable Unavailable Gianluca Cardenas MD Unavailable Unavailable Gianluca Cardenas MD Unavailable Unavailable Gianluca Cardenas MD Unavailable Unavailable Gianluca Cardenas MD Unavailable Unavailable Gianluca Cardenas MD Unavailable Unavailable Gianluca Cardenas MD Unavailable Unavailable Gianluca Cardenas MD Unavailable Unavailable Gianluca Cardenas MD Unavailable Unavailable Gianluca Cardenas MD Unavailable Unavailable Gianluca Cardenas MD Unavailable Unavailable Gianluca Cardenas MD Unavailable Unavailable Gianluca Cardenas MD Unavailable Unavailable Gianluca Cardenas MD Unavailable Unavailable Gianluca Cardenas MD Unavailable Unavailable Gianluca Cardenas MD Unavailable Unavailable Gianluca Cardenas MD Unavailable Unavailable Gianluca Cardenas MD Unavailable Unavailable Gianluca Cardenas MD Unavailable Unavailable Gianluca Cardenas MD Unavailable Unavailable Gianluca Cardenas MD Unavailable Unavailable Gianluca Cardenas MD Unavailable Unavailable Gianluca Cardenas MD Unavailable Unavailable Gianluca Cardenas MD Unavailable Unavailable Gianluca Cardenas MD Unavailable Unavailable Gianluca Cardenas MD Unavailable Unavailable Gianluca Cardenas MD Unavailable Unavailable Gianluca Cardenas MD Unavailable Unavailable Gianluca Cardenas MD Unavailable Unavailable Gianluca Cardenas MD Unavailable Unavailable RonaldGianluca ruiz MD Unavailable Unavailable RonaldGianluca MD Unavailable Unavailable RonaldGianluca MD Unavailable Unavailable RonaldGianluca MD Unavailable Unavailable RonaldGianluca MD Unavailable Unavailable RonaldGianluca MD Unavailable Unavailable RonaldGianluca MD Unavailable Unavailable RonaldGianluca MD Unavailable Unavailable RonaldGianluca MD Unavailable Unavailable RonaldGianluca salinas MD Unavailable Unavailable RonaldGianluca MD Unavailable Unavailable RonaldGianluca MD Unavailable Unavailable RonaldGianluca MD Unavailable Unavailable RonaldGianluca MD Unavailable Unavailable RonaldGianluca MD Unavailable Unavailable RonaldGianluca MD Unavailable Unavailable RonaldGianluca MD Unavailable Unavailable RonaldGianluca MD Unavailable Unavailable RonaldGianluca MD Unavailable Unavailable RonaldGianluca ruiz MD Unavailable Unavailable RonaldGianluca salinas MD Unavailable Unavailable Gianluca Cardenas MD Unavailable Unavailable Gianluca Cardenas MD Unavailable Unavailable Gianluca Cardenas MD Unavailable Unavailable Gianluca Cardenas MD Unavailable Unavailable Gianluca Cardenas MD Unavailable Unavailable Gianluca Cardenas MD Unavailable Unavailable Gianluca Cardenas MD Unavailable Unavailable Gianluca Cardenas MD Unavailable Unavailable Gianluca Cardenas MD Unavailable Unavailable Gianluca Cardenas MD Unavailable Unavailable Gianluca Cardenas MD Unavailable Unavailable Gianluca Cardenas MD Unavailable Unavailable Gianluca Cardenas MD Unavailable Unavailable Gianluca Cardenas MD Unavailable Unavailable Gianluca Cardenas MD Unavailable Unavailable Gianluca Cardenas MD Unavailable Unavailable Gianluca Cardenas MD Unavailable Unavailable Gianluca Cardenas MD Unavailable Unavailable Gianluca Cardenas MD Unavailable Unavailable Gianluca Cardenas MD Unavailable Unavailable Gianluca Cardenas MD Unavailable Unavailable Gianluca Cardenas MD Unavailable Unavailable Gianluca Cardenas MD Unavailable Unavailable Gianluca Cardenas MD Unavailable Unavailable Gianluca Cardenas MD Unavailable Unavailable Gianluca Cardenas MD Unavailable Unavailable Gianluca Cardenas MD Unavailable Unavailable Gianluca Cardenas MD Unavailable Unavailable Gianluca Cardenas MD Unavailable Unavailable RonaldGianluca ruiz MD Unavailable Unavailable RonaldGianluca MD Unavailable Unavailable RonaldGianluca MD Unavailable Unavailable Ronald, Gianluca Evangelista MD Unavailable Unavailable Ronald, Gianluca Evangelista MD Unavailable Unavailable Ronald, M Tonja DALE Unavailable Unavailable Ronald, M Tonja DALE Unavailable Unavailable Ronald, Gianluca Evangelista MD Unavailable Unavailable Ronald, M Tonja DALE Unavailable Unavailable Ronald, M Tonja DALE Unavailable Unavailable Ronald, M Tonja DALE Unavailable Unavailable Ronald, Gianluca Evangelista MD Unavailable Unavailable Ronald, M Tonja DALE Unavailable Unavailable Ronadl, Gianluca Evangelista MD Unavailable Unavailable Ronald, M Tonja DALE Unavailable Unavailable Ronald, M Tonja DALE Unavailable Unavailable Ronald, M Tonja DALE Unavailable Unavailable Ronald, M Tonja DALE Unavailable Unavailable Ronald, M Tonja DALE Unavailable Unavailable Ronald, M Tonja DALE Unavailable Unavailable Ronald, M Tonja DALE Unavailable Unavailable Ronald, M Tonja DALE Unavailable Unavailable Ronald, Gianluca Evangelista MD Unavailable Unavailable Ronald, M Tonja DALE Unavailable Unavailable Ronald, M Tonja DALE Unavailable Unavailable RonaldGianluca MD Unavailable Unavailable Ronald, M Tonja DALE Unavailable Unavailable Ronald, M Tonja DALE Unavailable Unavailable Ronald, M Tonja DALE Unavailable Unavailable Ronald, M Tonja DALE Unavailable Unavailable Ronald, M Tonja ADLE Unavailable Unavailable Ronald, M Tonja DALE Unavailable Unavailable Ronald, M Tonja DALE Unavailable Unavailable Ronald, M Tonja DALE Unavailable Unavailable Ronald, M Tonja DALE Unavailable Unavailable Ronald, M Tonja DALE Unavailable Unavailable Re-disclosure Warning The records that you are about to access may contain information from federally-assisted alcohol or drug abuse programs. If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 [facility]) Anion Gap 4 meq/L 8-16 [facility]) Alt/SGPT 100 U/L 12-78 [facility]) Ast/Sgot 60 U/L 7-37 [facility]) Alkaline Phosphatase 134 U/L 45-117 [facility] ( [facility]) Albumin 3.7 GM/DL 3.2-5.2 [facility] ([facility]) Total Protein 6.9 GM/DL 6.4-8.2 [facility] ([facility]) Bilirubin,Total 0.7 mg/dL 0.2-1.0 [facility] ([facility]) Albumin/Globulin Ratio 1.2 1.2-2.2 [facility] ([facility]) ID Date Data Source [id number] 06/23/2020 09:11:00 AM EST [facility] ([facility]) Name Value Range Interpretation Code Description Data Elizabeth rce(s) Supporting Document(s) Prothrombin Time 18.2 s 12.5-14.3 [facility] ([facility]) Inr 1.48 [facility] ([facility]) THERAPUTIC HUMAN INR VALUES INDICATIONS NORMAL RANGES PROPHYLAXIS/TREATMENT OF: VENOUS THROMBOSIS 2.0-3.0 PULMONARY EMBOLISM 2.0-3.0 PREVENTION OF SYSTEMIC EMBOLISM FROM: TISSUE HEART VALVES 2.0-3.0 ACUTE MYOCARDIAL INFARCTION 2.0-3.0 VALVULAR HEART DISEASE 2.0-3.0 ATRIAL FIBRILLATION 2.0-3.0 MECHANICAL VALVES(HIGH RISK) 2.5-3.5 RECURRENT MYOCARDIAL INFARCTION 2.5-3.5 ID Date Data Source [id number] 05/13/2020 08:48:00 AM EDT [facility] ([facility]) Name Value Range Interpretation Code Description Data Elizabeth rce(s) Supporting Document(s) Thyrotropin [Units/volume] in Serum or Plasma by Detec tion limit <= 0.05 mIU/L 6.74 uIU/mL 0.36-3.74 [facility] ([facility] ) ID Date Data Source [id number] 05/13/2020 08:48:00 AM EDT [facility] ([facility]) Name Value Range Interpretation Code Description Data Elizabeth rce(s) Supporting Document(s) Glucose [Mass/volume] in Serum or Plasma 105 mg/dL 74-99 [facility] ([facility]) 100-125 mg/dL PRE-DIABETES/FASTING >126 mg/dL DIABETES/FASTING Creatinine 1.2 mg/dL 0.6-1.3 [facility] ([facility] Urea nitrogen [Mass/volume] in Serum or Plasma 21 mg/dL 7-18 [facility] ([facility]) Sodium [Moles/volume] in Serum or Plasma 140 meq/L 136-145 [facility] ([facility]) Potassium [Moles/volume] in Serum or Plasma 4.1 meq/L 3.5-5.1 [facility] ([facility]) Chloride [Moles/volume] in Serum or Plasma 103 meq/L 98-107 [facility] ([facility]) Carbon dioxide, total [Moles/volume] in Serum or Plasma 26 meq/L 21 -32 [facility] ([facility]) Calcium [Mass/volume] in Serum or Plasma 8.7 mg/dL 8.5-10.1 [facility] ([facility]) Alkaline phosphatase isoenzyme [Units/volume] in Serum or Pl asma 116 mg/dL 46-116 [facility] ([facility]) Aspartate aminotransferase [Enzymatic activity/volume] in Serum or Plasma 34 U/L 15-37 [facility] ([facility] ) Alanine aminotransferase [Enzymatic activity/volume] in Seru m or Plasma 59 U/L 12-78 [facility] ([facility]) Total Bilirubin 0.9 mg/dL 0.2-1.0 [facility] ([facility]) A/G Ratio 1.06 CALC 1.00-1.90 [facility] ([facility]) Albumin [Mass/volume] in Serum or Plasma 3.7 g/dL 3.4-5.0 [facility] ([facility]) Proteinase 3 Ab [Units/volume] in Serum 7.2 g/dL 6.4-8.2 [facility] Glomerular filtration rate/1.73 sq M pre dicted among blacks [Volume Rate/Area] in Serum or Plasma by Creatinine-based formula (MDRD) 53 mL/min [facility] <content>CHRONIC KIDNEY DISEASE STAGING PER NKF</content>
<content></content>
<content>STAGE I & II GFR >= 60 NORMAL TO MILDLY DECREASED</content>
<content>STAGE III GFR 30-59 MODERATELY DECREASED</content>
<content>STAGE IV GFR 15-29 SEVERELY DECREASED</content>
<content>STAGE V GFR <15 VERY LITTLE GFR LEFT</content>
<content>ESRD GFR <15 ON NET LEAD DEVELOPER</content>
<content></content> Glomerular filtration rate/1.73 sq M pre dicted among non-blacks [Volume Rate/Area] in Serum or Plasma by Creatinine-based formula (MDRD) 44 mL/min [facility] ID Date Data Source [id number] 05/13/2020 08:47:00 AM EDT [facility] ([facility]) Name Value Range Interpretation Code Description Data Elizabeth rce(s) Supporting Document(s) Leukocytes [#/volume] in Blood by Automated count 8.8 x10*3/UL 4.1-10 .9 [facility]) Hematocrit [Volume Fraction] of Blood by Automated count 40.1 % 3 7.0-51.0 [facility] ([facility]) Hemoglobin [Mass/volume] in Blood 13.7 g/dL 12.0-18.0 [facility] Erythrocytes [#/volume] in Blood by Automated count 4.75 x10*6/UL 4.2 0-6.30 [facility] MCHC 34.3 g/dL 31.0-38.0 [facility] MCV 84.4 fL 80.0-97.0 [facility] MCH 29.0 pg 26.0-32.0 [facility] [facility] Platelets [#/volume] in Blood by Automated count 338 x10*3/UL 140-440 [facility] ([facility]) Erythrocyte distribution width [Ratio] by Automated count 13.2 % 11.6-13.7 [facility] ([facility]) MPV 7.6 FL 7.8-11.0 [facility] Lymph % 16.0 % 10.0-58.5 [facility] Mid % 4.3 % 1.7-9.3 [facility] [facility] Neut % 79.7 % 37.0-92.0 [facility] ([place] [facility]) Lymph # 1.4 x10*3/UL 0.6-4.1 [facility] ([facility]) Neut # 7.0 x10*3/UL 2.0-7.8 [facility] ([facility]) Mid # 0.4 x10*3/UL 0.1-0.6 [facility] ([facility]) ID Date Data Source [id number] 05/08/2020 01:27:00 PM EDT [facility] ([facility] ) Name Value Range Interpretation Code Description Data Elizabeth rce(s) Supporting Document(s) Laboratory test finding (navigational concept) Laboratory test result [facility] ([facility]) ID Date Data Source [id number] 04/07/2020 11:59:00 AM EDT [facility] ([facility]) Name Value Range Interpretation Code Description Data Elizabeth rce(s) Supporting Document(s) Thyrotropin [Units/volume] in Serum or Plasma by Detec tion limit <= 0.05 mIU/L 1.02 uIU/mL 0.36-3.74 [facility] ([facility] ) ID Date Data Source [id number] 04/07/2020 11:59:00 AM EDT [facility] ([facility]) Name Value Range Interpretation Code Description Data Elizabeth rce(s) Supporting Document(s) Glucose [Mass/volume] in Serum or Plasma 106 mg/dL 74-99 [facility] ([facility]) 100-125 mg/dL PRE-DIABETES/FASTING >126 mg/dL DIABETES/FASTING Sodium [Moles/volume] in Serum or Plasma 140 meq/L 136-145 [facility] ([facility]) Urea nitrogen [Mass/volume] in Serum or Plasma 18 mg/dL 7-18 [facility] ([facility]) Creatinine 1.3 mg/dL 0.6-1.3 [facility] ([facility] Carbon dioxide, total [Moles/volume] in Serum or Plasma 27 meq/L 21 -32 [facility] ([facility]) Chloride [Moles/volume] in Serum or Plasma 102 meq/L 98-107 [facility] ([facility]) Potassium [Moles/volume] in Serum or Plasma 5.1 meq/L 3.5-5.1 [facility] ([facility]) Total Bilirubin 1.0 mg/dL 0.2-1.0 [facility] ([facility]) Calcium [Mass/volume] in Serum or Plasma 9.5 mg/dL 8.5-10.1 [facility] ([facility]) Alkaline phosphatase isoenzyme [Units/volume] in Serum or Pl asma 104 mg/dL 46-116 [facility] ([facility]) Aspartate aminotransferase [Enzymatic activity/volume] in Serum or Plasma 37 U/L 15-37 [facility] ([facility] ) Alanine aminotransferase [Enzymatic activity/volume] in Seru m or Plasma 52 U/L 12-78 [facility] ([facility]) Albumin [Mass/volume] in Serum or Plasma 4.0 g/dL 3.4-5.0 [facility] ([facility]) A/G Ratio 1.21 CALC 1.00-1.90 [facility] ([facility]) Proteinase 3 Ab [Units/volume] in Serum 7.3 g/dL 6.4-8.2 [facility] ([facility]) Glomerular filtration rate/1.73 sq M pre dicted among non-blacks [Volume Rate/Area] in Serum or Plasma by Creatinine-based formula (MDRD) 40 mL/min [facility] ([facility]) Glomerular filtration rate/1.73 sq M pre dicted among blacks [Volume Rate/Area] in Serum or Plasma by Creatinine-based formula (MDRD) 48 mL/min [facility] ([facility]) <content>CHRONIC KIDNEY DISEASE STAGING PER NKF</content>
<content></content>
<content>STAGE I & II GFR >= 60 NORMAL TO MILDLY DECREASED</content>
<content>STAGE III GFR 30-59 MODERATELY DECREASED</content>
<content>STAGE IV GFR 15-29 SEVERELY DECREASED</content>
<content>STAGE V GFR <15 VERY LITTLE GFR LEFT</content>
<content>ESRD GFR <15 ON NET LEAD DEVELOPER</content>
<content></content> ID Date Data Source [id number] 04/07/2020 11:59:00 AM EDT [facility] ([facility]) Name Value Range Interpretation Code Description Data Elizabeth rce(s) Supporting Document(s) Magnesium 2.0 mg/dL 1.8-2.4 [facility] ([facility]) ID Date Data Source [id number] 04/07/2020 11:59:00 AM EDT [facility] ([facility]) Name Value Range Interpretation Code Description Data Elizabeth rce(s) Supporting Document(s) Leukocytes [#/volume] in Blood by Automated count 8.5 x10*3/UL 4.1-10 .9 [facility] ([facility]) Erythrocytes [#/volume] in Blood by Automated count 5.00 x10*6/UL 4.2 0-6.30 [facility] ([facility]) Hemoglobin [Mass/volume] in Blood 14.4 g/dL 12.0-18.0 [facility] Hematocrit [Volume Fraction] of Blood by Automated count 42.8 % 3 7.0-51.0 [facility] ([facility] MCHC 33.8 g/dL 31.0-38.0 [facility] ([place] [facility]) MCH 28.9 pg 26.0-32.0 [facility] ([place] [facility]) MCV 85.5 fL 80.0-97.0 [facility] ([facility]) Platelets [#/volume] in Blood by Automated count 361 x10*3/UL 140-440 [facility] ([facility]) MPV 8.3 FL 7.8-11.0 [facility] ([facility]) Erythrocyte distribution width [Ratio] by Automated count 13.3 % 11.6-13.7 [facility] ([facility]) Lymph % 19.5 % 10.0-58.5 [facility] ([place] [facility]) Mid % 5.7 % 1.7-9.3 [facility] ([facility]) Neut % 74.8 % 37.0-92.0 [facility] ([facility]) Mid # 0.5 x10*3/UL 0.1-0.6 [facility] ([facility]) Lymph # 1.6 x10*3/UL 0.6-4.1 [facility] ([facility]) Neut # 6.4 x10*3/UL 2.0-7.8 [facility] ([facility]) ID Date Data Source [id number] 03/04/2020 09:56:00 AM EDT [facility] ([facility]) Name Value Range Interpretation Code Description Data Elizabeth rce(s) Supporting Document(s) Leukocytes [#/volume] in Blood by Automated count 12.6 x10*3/UL 4.1-1 0.9 [facility] ([facility]) NOTE: CBC VERIFIED Erythrocytes [#/volume] in Blood by Automated count 4.45 x10*6/UL 4.2 0-6.30 [facility] ([facility]) MCV 84.7 fL 80.0-97.0 [facility] ([place] [facility]) Hematocrit [Volume Fraction] of Blood by Automated count 37.7 % 3 7.0-51.0 [facility] ([facility]) Hemoglobin [Mass/volume] in Blood 12.8 g/dL 12.0-18.0 [facility] ([facility]) MCHC 33.9 g/dL 31.0-38.0 [facility] [facility] Erythrocyte distribution width [Ratio] by Automated count 13.4 % 11.6-13.7 [facility] ([facility]) MCH 28.7 pg 26.0-32.0 [facility] [facility] Platelets [#/volume] in Blood by Automated count 411 x10*3/UL 140-440 [facility] ([facility]) MPV 8.0 FL 7.8-11.0 [facility] Mid % 3.3 % 1.7-9.3 [facility] [facility] Lymph % 10.9 % 10.0-58.5 [facility] [facility] Neut % 85.8 % 37.0-92.0 [facility] [facility] Neut # 10.8 x10*3/UL 2.0-7.8 [facility] ([facility]) Lymph # 1.3 x10*3/UL 0.6-4.1 [facility] ([facility]) Mid # 0.5 x10*3/UL 0.1-0.6 [facility] ([facility]) ID Date Data Source [id number] 03/04/2020 09:56:00 AM EDT [facility] ([facility]) Name Value Range Interpretation Code Description Data Elizabeth rce(s) Supporting Document(s) Glucose [Mass/volume] in Serum or Plasma 99 mg/dL 74-99 [facility] ([facility]) 100-125 mg/dL PRE-DIABETES/FASTING >126 mg/dL DIABETES/FASTING Creatinine 1.4 mg/dL 0.6-1.3 [facility] ([facility] Sodium [Moles/volume] in Serum or Plasma 140 meq/L 136-145 [facility] ([facility]) Urea nitrogen [Mass/volume] in Serum or Plasma 17 mg/dL 7-18 [facility] ([facility]) Carbon dioxide, total [Moles/volume] in Serum or Plasma 26 meq/L 21 -32 [facility] ([facility]) Chloride [Moles/volume] in Serum or Plasma 103 meq/L 98-107 [facility] ([facility]) Potassium [Moles/volume] in Serum or Plasma 4.3 meq/L 3.5-5.1 [facility] ([facility]) Calcium [Mass/volume] in Serum or Plasma 8.2 mg/dL 8.5-10.1 [facility] ([facility]) NOTE: RESULT VERIFIED. Alkaline phosphatase isoenzyme [Units/volume] in Serum or Pl asma 115 mg/dL 46-116 [facility] ([facility]) Total Bilirubin 0.8 mg/dL 0.2-1.0 [facility] ([facility]) Aspartate aminotransferase [Enzymatic activity/volume] in Serum or Plasma 32 U/L 15-37 [facility] ([facility] ) Albumin [Mass/volume] in Serum or Plasma 3.4 g/dL 3.4-5.0 [facility] ([facility]) Alanine aminotransferase [Enzymatic activity/volume] in Seru m or Plasma 47 U/L 12-78 [facility] ([facility]) A/G Ratio 1.10 CALC 1.00-1.90 [facility] ([facility]) Proteinase 3 Ab [Units/volume] in Serum 6.5 g/dL 6.4-8.2 [facility] ([facility]) Glomerular filtration rate/1.73 sq M pre dicted among non-blacks [Volume Rate/Area] in Serum or Plasma by Creatinine-based formula (MDRD) 37 mL/min [facility] ([facility]) Glomerular filtration rate/1.73 sq M pre dicted among blacks [Volume Rate/Area] in Serum or Plasma by Creatinine-based formula (MDRD) 44 mL/min [facility] ([facility]) <content>CHRONIC KIDNEY DISEASE STAGING PER NKF</content>
<content></content>
<content>STAGE I & II GFR >= 60 NORMAL TO MILDLY DECREASED</content>
<content>STAGE III GFR 30-59 MODERATELY DECREASED</content>
<content>STAGE IV GFR 15-29 SEVERELY DECREASED</content>
<content>STAGE V GFR <15 VERY LITTLE GFR LEFT</content>
<content>ESRD GFR <15 ON NET LEAD DEVELOPER</content>
<content></content> ID Date Data Source [id number] 02/25/2020 07:34:00 AM EDT [facility] ([facility]) Name Value Range Interpretation Code Description Data Elizabeth rce(s) Supporting Document(s) Alkaline phosphatase isoenzyme [Units/volume] in Serum or Pl asma 132 mg/dL 46-116 [facility] ([facility]) Total Bilirubin 0.8 mg/dL 0.2-1.0 [facility] ([facility]) Alanine aminotransferase [Enzymatic activity/volume] in Seru m or Plasma 107 U/L 12-78 [facility] ([facility]) NOTE: RESULT VERIFIED. Aspartate aminotransferase [Enzymatic activity/volume] in Serum or Plasma 63 U/L 15-37 [facility] ([facility] ) Albumin [Mass/volume] in Serum or Plasma 3.9 g/dL 3.4-5.0 [facility] ([facility]) A/G Ratio 1.26 CALC 1.00-1.90 [facility]) Direct Bilirubin 0.2 mg/dL 0.0-0.2 [facility] ([facility]) Proteinase 3 Ab [Units/volume] in Serum 7.0 g/dL 6.4-8.2 [facility] ([facility]) ID Date Data Source [id number] 02/25/2020 07:34:00 AM EDT [facility] ([facility]) Name Value Range Interpretation Code Description Data Elizabeth rce(s) Supporting Document(s) Glucose [Mass/volume] in Serum or Plasma 128 mg/dL 74-99 [facility] ([facility]) 100-125 mg/dL PRE-DIABETES/FASTING >126 mg/dL DIABETES/FASTING Urea nitrogen [Mass/volume] in Serum or Plasma 17 mg/dL 7-18 [facility] ([facility]) Creatinine 1.4 mg/dL 0.6-1.3 [facility] Sodium [Moles/volume] in Serum or Plasma 143 meq/L 136-145 [facility] Potassium [Moles/volume] in Serum or Plasma 4.1 meq/L 3.5-5.1 [facility] Carbon dioxide, total [Moles/volume] in Serum or Plasma 27 meq/L 21 -32 [facility] ([facility]) Chloride [Moles/volume] in Serum or Plasma 105 meq/L 98-107 [facility] Calcium [Mass/volume] in Serum or Plasma 9.2 mg/dL 8.5-10.1 [facility] ([facility]) Glomerular filtration rate/1.73 sq M pre dicted among non-blacks [Volume Rate/Area] in Serum or Plasma by Creatinine-based formula (MDRD) 37 mL/min [facility] Glomerular filtration rate/1.73 sq M pre dicted among blacks [Volume Rate/Area] in Serum or Plasma by Creatinine-based formula (MDRD) 44 mL/min [facility] ([facility]) <content>CHRONIC KIDNEY DISEASE STAGING PER NKF</content>
<content></content>
<content>STAGE I & II GFR >= 60 NORMAL TO MILDLY DECREASED</content>
<content>STAGE III GFR 30-59 MODERATELY DECREASED</content>
<content>STAGE IV GFR 15-29 SEVERELY DECREASED</content>
<content>STAGE V GFR <15 VERY LITTLE GFR LEFT</content>
<content>ESRD GFR <15 ON NET LEAD DEVELOPER</content>
<content></content> ID Date Data Source [id number] 02/25/2020 07:34:00 AM EDT [facility] ([facility] ) Name Value Range Interpretation Code Description Data Elizabeth rce(s) Supporting Document(s) Alkaline phosphatase isoenzyme [Units/volume] in Serum or Pl asma 132 mg/dL 46-116 [facility] ([facility] ) Aspartate aminotransferase [Enzymatic activity/volume] in Serum or Plasma 63 U/L 15-37 [facility] ([facility] ) Total Bilirubin 0.8 mg/dL 0.2-1.0 [facility] ([facility] ) Albumin [Mass/volume] in Serum or Plasma 3.9 g/dL 3.4-5.0 [facility] ([facility] ) Alanine aminotransferase [Enzymatic activity/volume] in Seru m or Plasma 107 U/L 12-78 [facility] ([facility] [facility] NOTE: RESULT VERIFIED. Proteinase 3 Ab [Units/volume] in Serum 7.0 g/dL 6.4-8.2 [facility] ([facility]) Laboratory test finding (navigational concept) 0.2 mg/dL 0.0-0.2 [facility] ([facility]) Albumin/Globulin [Mass Ratio] in Serum or Plasma 1.26 CALC 1.00-1.90 [facility] ([facility]) ID Date Data Source [id number] 02/25/2020 07:34:00 AM EDT [facility] ([facility]) Name Value Range Interpretation Code Description Data Elizabeth rce(s) Supporting Document(s) Glucose [Mass/volume] in Serum or Plasma 128 mg/dL 74-99 [facility] ([facility]) 100-125 mg/dL PRE-DIABETES/FASTING >126 mg/dL DIABETES/FASTING Urea nitrogen [Mass/volume] in Serum or Plasma 17 mg/dL 7-18 [facility] ([facility]) Creatinine [Mass/volume] in Serum or Plasma 1.4 mg/dL 0.6-1.3 [facility] ([facility]) Sodium [Moles/volume] in Serum or Plasma 143 meq/L 136-145 [facility] ([facility]) Chloride [Moles/volume] in Serum or Plasma 105 meq/L 98-107 [facility] ([facility]) Carbon dioxide, total [Moles/volume] in Serum or Plasma 27 meq/L 21 -32 [facility] ([facility]) Potassium [Moles/volume] in Serum or Plasma 4.1 meq/L 3.5-5.1 [facility] ([facility]) Calcium [Mass/volume] in Serum or Plasma 9.2 mg/dL 8.5-10.1 [facility] ([facility]) Glomerular filtration rate/1.73 sq M pre dicted among blacks [Volume Rate/Area] in Serum or Plasma by Creatinine-based formula (MDRD) 44 mL/min [facility] ([facility]) <content>CHRONIC KIDNEY DISEASE STAGING PER NKF</content>
<content></content>
<content>STAGE I & II GFR >= 60 NORMAL TO MILDLY DECREASED</content>
<content>STAGE III GFR 30-59 MODERATELY DECREASED</content>
<content>STAGE IV GFR 15-29 SEVERELY DECREASED</content>
<content>STAGE V GFR <15 VERY LITTLE GFR LEFT</content>
<content>ESRD GFR <15 ON NET LEAD DEVELOPER</content>
<content></content>
<content></content> Glomerular filtration rate/1.73 sq M pre dicted among non-blacks [Volume Rate/Area] in Serum or Plasma by Creatinine-based formula (MDRD) 37 mL/min [facility] ([facility]) ID Date Data Source [id number] 02/23/2020 08:15:00 AM EDT [facility] Name Value Range Interpretation Code Description Data Elizabeth rce(s) Supporting Document(s) SARS coronavirus 2 RNA [facility] This lab was ordered by [facility] and reported by [facility]. ID Date Data Source [id number] 02/20/2020 08:55:00 AM EDT [facility] ([facility]) Name Value Range Interpretation Code Description Data Elizabeth rce(s) Supporting Document(s) Hepatitis C Virus Rosi Index 0.1 INDEX [facility] ([facility]) Negative Not infected with HCV, unless recent infection is suspected or other evidence exists to indicate HCV infection. Hepatitis B Surface Antigen Laboratory test result [facility] ([facility]) Hepatitis B Core Antibody Igm Laboratory test result [facility] ([facility]) Hepatitis A Antibody Igm [facility] ID Date Data Source [id number] 02/20/2020 08:55:00 AM EDT [facility] ([facility]) Name Value Range Interpretation Code Description Data Elizabeth rce(s) Supporting Document(s) Erythrocyte sedimentation rate by Westergren method 18 mm/hr 0-30 [facility] ([facility]) ID Date Data Source [id number] 02/20/2020 08:55:00 AM EDT [facility] ([facility]) Name Value Range Interpretation Code Description Data Elizabeth rce(s) Supporting Document(s) White Blood Count 8.7 10 4.0-10.0 [facility] ([facility]) Red Blood Count 5.04 10 4.00-5.40 [facility] ([facility]) Hematocrit 44.4 % 36.0-47.0 [facility] ([facility]) Hemoglobin 14.4 g/dL 12.0-15.5 [facility] ([facility]) Mean Corpuscular Volume 88.1 fl 80.0-96.0 [facility] ([facility]) Mean Corpuscular Hemoglobin 28.6 pg 27.0-33.0 [facility] ([facility]) Mean Corpuscular HGB Conc 32.4 g/dL 32.0-36.5 [facility] ([facility]) Nucleated Red Blood Cell % 0.0 % 0-0 [facility] ([facility]) Platelet Count, Automated 304 10 150-450 [facility] ([facility]) Red Cell Distribution Width 14.0 % 11.5-14.5 [facility] ([facility]) ID Date Data Source [id number] 02/20/2020 08:55:00 AM EDT [facility] ([facility]) Name Value Range Interpretation Code Description Data [facility](s) Supporting Document(s) Blood Urea Nitrogen 15 mg/dL 7-18 [facility] ([facility]) Glucose, Fasting 108 mg/dL 70-100 [facility] ([facility]) Glomerular Filtration Rate 37.2 [facility] ([facility]) <content>Units are mL/min/1.73 m2</content>
<content></content>
<content>Chronic Kidney Disease Staging per NKF:</content>
<content></content>
<content>Stage I & II GFR >=60 Normal to Mildly Decreased</content>
<content>Stage III GFR 30-59 Moderately Decreased</content>
<content>Stage IV GFR 15-29 Severely Decreased</content>
<content>Stage V GFR <15 Very Little GFR Left</content>
<content>ESRD GFR <15 on NET LEAD DEVELOPER</content>
<content></content> Creatinine For GFR 1.46 mg/dL 0.55-1.30 [facility] ([facility]) Potassium Serum 3.8 meq/L 3.5-5.1 [facility] ([facility]) Chloride Level 108 meq/L 98-107 [facility] ([facility]) Sodium Level 141 meq/L 136-145 [facility] ([facility]) Anion Gap 9 meq/L 8-16 [facility]) Carbon Dioxide Level 24 meq/L 21-32 [facility] ([facility]) Calcium Level 9.7 mg/dL 8.8-10.2 [facility] ([facility]) Ast/Sgot 66 U/L 7-37 [facility] ([facility]) Alt/SGPT 100 U/L 12-78 [facility] ([facility]) Alkaline Phosphatase 132 U/L 45-117 [facility] ([facility]) Bilirubin,Total 0.6 mg/dL 0.2-1.0 [facility] ([facility]) Total Protein 7.0 GM/DL 6.4-8.2 [facility] ([facility]) Albumin 3.8 GM/DL 3.2-5.2 [facility] ([facility]) Albumin/Globulin Ratio 1.2 1.2-2.2 [facility] ([facility]) ID Date Data Source [id number] 02/20/2020 08:55:00 AM EDT [facility] ([facility]) Name Value Range Interpretation Code Description Data Elizabeth rce(s) Supporting Document(s) Prothrombin Time 18.9 s 11.8-14.0 [facility] ([facility]) Inr 1.61 [facility] ([facility]) THERAPUTIC HUMAN INR VALUES INDICATIONS NORMAL RANGES PROPHYLAXIS/TREATMENT OF: VENOUS THROMBOSIS 2.0-3.0 PULMONARY EMBOLISM 2.0-3.0 PREVENTION OF SYSTEMIC EMBOLISM FROM: TISSUE HEART VALVES 2.0-3.0 ACUTE MYOCARDIAL INFARCTION 2.0-3.0 VALVULAR HEART DISEASE 2.0-3.0 ATRIAL FIBRILLATION 2.0-3.0 MECHANICAL VALVES(HIGH RISK) 2.5-3.5 RECURRENT MYOCARDIAL INFARCTION 2.5-3.5 ID Date Data Source [id number] 02/20/2020 08:55:00 AM EDT [facility] ([facility]) Name Value Range Interpretation Code Description Data Elizabeth rce(s) Supporting Document(s) Erythrocyte sedimentation rate by Westergren method 18 mm/hr 0-30 [facility] ([facility]) ID Date Data Source [id number] 02/20/2020 08:55:00 AM EDT [facility] ([facility]) Name Value Range Interpretation Code Description Data Elizabeth rce(s) Supporting Document(s) Red Blood Count 5.04 10 4.00-5.40 [facility] ([facility]) White Blood Count 8.7 10 4.0-10.0 [facility] ([facility]) Mean Corpuscular Volume 88.1 fl 80.0-96.0 M [facility] ([facility]) Hemoglobin 14.4 g/dL 12.0-15.5 [facility] ([facility]) Hematocrit 44.4 % 36.0-47.0 [facility] ([facility]) Red Cell Distribution Width 14.0 % 11.5-14.5 [facility] ([facility]) Mean Corpuscular Hemoglobin 28.6 pg 27.0-33.0 [facility] ([facility]) Mean Corpuscular HGB Conc 32.4 g/dL 32.0-36.5 [facility] ([facility] Platelet Count, Automated 304 10 150-450 [facility] ([facility]) Nucleated Red Blood Cell % 0.0 % 0-0 [facility] ([facility]) ID Date Data Source [id number] 02/20/2020 08:55:00 AM EDT [facility] ([facility]) Name Value Range Interpretation Code Description Data Elizabeth rce(s) Supporting Document(s) Glucose, Fasting 108 mg/dL 70-100 [facility] ([facility]) Blood Urea Nitrogen 15 mg/dL 7-18 [facility] ([facility]) Sodium Level 141 meq/L 136-145 [facility] ([facility]) Creatinine For GFR 1.46 mg/dL 0.55-1.30 [facility] ([facility]) Glomerular Filtration Rate 37.2 [facility] ([facility]) <content>Units are mL/min/1.73 m2</content>
<content></content>
<content>Chronic Kidney Disease Staging per NKF:</content>
<content></content>
<content>Stage I & II GFR >=60 Normal to Mildly Decreased</content>
<content>Stage III GFR 30-59 Moderately Decreased</content>
<content>Stage IV GFR 15-29 Severely Decreased</content>
<content>Stage V GFR <15 Very Little GFR Left</content>
<content>ESRD GFR <15 on NET LEAD DEVELOPER</content>
<content></content> Chloride Level 108 meq/L 98-107 [facility] ([facility]) Carbon Dioxide Level 24 meq/L 21-32 [facility] ([facility]) Potassium Serum 3.8 meq/L 3.5-5.1 [facility] ([facility]) Anion Gap 9 meq/L 8-16 [facility] ([facility]) Ast/Sgot 66 U/L 7-37 [facility] ([facility]) Calcium Level 9.7 mg/dL 8.8-10.2 [facility] ([facility]) Bilirubin,Total 0.6 mg/dL 0.2-1.0 [facility] ([facility]) Alt/SGPT 100 U/L 12-78 [facility] ([facility]) Alkaline Phosphatase 132 U/L 45-117 [facility] ([facility]) Albumin/Globulin Ratio 1.2 1.2-2.2 [facility] ([facility]) Albumin 3.8 GM/DL 3.2-5.2 [facility] ([facility]) Total Protein 7.0 GM/DL 6.4-8.2 [facility] ([facility]) ID Date Data Source [id number] 02/20/2020 08:55:00 AM EDT [facility] ([facility]) Name Value Range Interpretation Code Description Data Elizabeth rce(s) Supporting Document(s) Prothrombin Time 18.9 s 11.8-14.0 [facility] ([facility]) Inr 1.61 [facility] ([facility]) THERAPUTIC HUMAN INR VALUES INDICATIONS NORMAL RANGES PROPHYLAXIS/TREATMENT OF: VENOUS THROMBOSIS 2.0-3.0 PULMONARY EMBOLISM 2.0-3.0 PREVENTION OF SYSTEMIC EMBOLISM FROM: TISSUE HEART VALVES 2.0-3.0 ACUTE MYOCARDIAL INFARCTION 2.0-3.0 VALVULAR HEART DISEASE 2.0-3.0 ATRIAL FIBRILLATION 2.0-3.0 MECHANICAL VALVES(HIGH RISK) 2.5-3.5 RECURRENT MYOCARDIAL INFARCTION 2.5-3.5 ID Date Data Source [id number] 02/20/2020 08:13:00 AM EDT [facility] ([facility]) Name Value Range Interpretation Code Description Data Elizabeth rce(s) Supporting Document(s) Glucose [Mass/volume] in Serum or Plasma 106 mg/dL 74-99 [facility] ([facility]) 100-125 mg/dL PRE-DIABETES/FASTING >126 mg/dL DIABETES/FASTING Urea nitrogen [Mass/volume] in Serum or Plasma 14 mg/dL 7-18 [facility] ([facility]) Sodium [Moles/volume] in Serum or Plasma 144 meq/L 136-145 [facility] ([facility]) Creatinine 1.5 mg/dL 0.6-1.3 [facility] ([facility] Potassium [Moles/volume] in Serum or Plasma 4.2 meq/L 3.5-5.1 [facility] ([facility]) Carbon dioxide, total [Moles/volume] in Serum or Plasma 24 meq/L 21 -32 [facility] ([facility]) Chloride [Moles/volume] in Serum or Plasma 106 meq/L 98-107 [facility] ([facility]) Calcium [Mass/volume] in Serum or Plasma 10.0 mg/dL 8.5-10.1 [facility] ([facility]) Glomerular filtration rate/1.73 sq M pre dicted among non-blacks [Volume Rate/Area] in Serum or Plasma by Creatinine-based formula (MDRD) 34 mL/min [facility] ([facility]) Glomerular filtration rate/1.73 sq M pre dicted among blacks [Volume Rate/Area] in Serum or Plasma by Creatinine-based formula (MDRD) 41 mL/min [facility] <content>CHRONIC KIDNEY DISEASE STAGING PER NKF</content>
<content></content>
<content>STAGE I & II GFR >= 60 NORMAL TO MILDLY DECREASED</content>
<content>STAGE III GFR 30-59 MODERATELY DECREASED</content>
<content>STAGE IV GFR 15-29 SEVERELY DECREASED</content>
<content>STAGE V GFR <15 VERY LITTLE GFR LEFT</content>
<content>ESRD GFR <15 ON NET LEAD DEVELOPER</content>
<content></content> ID Date Data Source [id number] 02/11/2020 11:08:00 AM EDT [facility] ([facility]) Name Value Range Interpretation Code Description Data Elizabeth rce(s) Supporting Document(s) Hemoglobin A1c/Hemoglobin.total in Blood 5.9 g/dL 4.8-5.6 [facility] ([facility]) Lab Result Notes: Pre-Diabetes 5.7 - 6.4 % Diabetes = or > 6.5% Glucose mean value [Mass/volume] in Blood Estimated fr om glycated hemoglobin 123 mg/dL 60-110 [facility] ([facility] ) ID Date Data Source [id number] 02/11/2020 11:08:00 AM EDT [facility] ([facility]) Name Value Range Interpretation Code Description Data Elizabeth rce(s) Supporting Document(s) Glucose [Mass/volume] in Serum or Plasma 96 mg/dL 74-99 [facility] ([facility]) 100-125 mg/dL PRE-DIABETES/FASTING >126 mg/dL DIABETES/FASTING Sodium [Moles/volume] in Serum or Plasma 142 meq/L 136-145 [facility] ([facility]) Urea nitrogen [Mass/volume] in Serum or Plasma 17 mg/dL 7-18 [facility] ([facility]) Creatinine 1.6 mg/dL 0.6-1.3 [facility] ([facility]) Potassium [Moles/volume] in Serum or Plasma 3.9 meq/L 3.5-5.1 [facility] ([facility]) Chloride [Moles/volume] in Serum or Plasma 103 meq/L 98-107 [facility] ([facility]) Carbon dioxide, total [Moles/volume] in Serum or Plasma 24 meq/L 21 -32 [facility] ([facility]) Glomerular filtration rate/1.73 sq M pre dicted among non-blacks [Volume Rate/Area] in Serum or Plasma by Creatinine-based formula (MDRD) 31 mL/min [facility] ([facility]) Glomerular filtration rate/1.73 sq M pre dicted among blacks [Volume Rate/Area] in Serum or Plasma by Creatinine-based formula (MDRD) 38 mL/min [facility] ([facility]) <content>CHRONIC KIDNEY DISEASE STAGING PER NKF</content>
<content></content>
<content>STAGE I & II GFR >= 60 NORMAL TO MILDLY DECREASED</content>
<content>STAGE III GFR 30-59 MODERATELY DECREASED</content>
<content>STAGE IV GFR 15-29 SEVERELY DECREASED</content>
<content>STAGE V GFR <15 VERY LITTLE GFR LEFT</content>
<content>ESRD GFR <15 ON NET LEAD DEVELOPER</content>
<content></content> Calcium [Mass/volume] in Serum or Plasma 7.8 mg/dL 8.5-10.1 [facility] ([facility]) NOTE: RESULT VERIFIED. ID Date Data Source [id number] 02/11/2020 11:08:00 AM EDT [facility] ([facility]) Name Value Range Interpretation Code Description Data Elizabeth rce(s) Supporting Document(s) Erythrocytes [#/volume] in Blood by Automated count 4.89 x10*6/UL 4.2 0-6.30 [facility] ([facility]) Leukocytes [#/volume] in Blood by Automated count 8.7 x10*3/UL 4.1-10 .9 [facility] ([facility]) Hematocrit [Volume Fraction] of Blood by Automated count 41.6 % 3 7.0-51.0 [facility] ([facility]) MCV 85.0 fL 80.0-97.0 [facility] ([facility]) Hemoglobin [Mass/volume] in Blood 13.9 g/dL 12.0-18.0 [facility] ([facility]) Erythrocyte distribution width [Ratio] by Automated count 13.3 % 11.6-13.7 [facility] ([facility]) MCH 28.5 pg 26.0-32.0 [facility] ([facility]) MCHC 33.5 g/dL 31.0-38.0 [facility] ([facility]) MPV 8.1 FL 7.8-11.0 [facility] ([facility]) Lymph % 17.7 % 10.0-58.5 [facility] ([facility]) Platelets [#/volume] in Blood by Automated count 339 x10*3/UL 140-440 [facility] ([facility]) Mid % 5.6 % 1.7-9.3 [facility] ([facility]) Neut % 76.7 % 37.0-92.0 [facility] ([facility]) Lymph # 1.5 x10*3/UL 0.6-4.1 [facility] ([facility]) Mid # 0.5 x10*3/UL 0.1-0.6 [facility] ([facility]) Neut # 6.7 x10*3/UL 2.0-7.8 [facility] ([facility]) ID Date Data Source [id number] 01/16/2020 10:39:00 AM EDT [facility] ([facility]) Name Value Range Interpretation Code Description Data Elizabeth rce(s) Supporting Document(s) Laboratory test finding (navigational concept) Laboratory test result [facility] ([facility]) ID Date Data Source [id number] 01/08/2020 10:52:00 AM EDT [facility] ([facility]) Name Value Range Interpretation Code Description Data Elizabeth rce(s) Supporting Document(s) Glucose [Mass/volume] in Serum or Plasma 130 mg/dL 74-99 [facility] ([facility]) 100-125 mg/dL PRE-DIABETES/FASTING >126 mg/dL DIABETES/FASTING Creatinine 1.1 mg/dL 0.6-1.3 [facility] ([facility] Sodium [Moles/volume] in Serum or Plasma 144 meq/L 136-145 [facility] ([facility]) Urea nitrogen [Mass/volume] in Serum or Plasma 15 mg/dL 7-18 [facility] ([facility]) Carbon dioxide, total [Moles/volume] in Serum or Plasma 27 meq/L 21 -32 [facility] ([facility]) Potassium [Moles/volume] in Serum or Plasma 5.2 meq/L 3.5-5.1 [facility] ([facility]) NOTE: RESULT VERIFIED. NO VISIBLE HEMOLYSIS. Chloride [Moles/volume] in Serum or Plasma 106 meq/L 98-107 [facility] ([facility]) Glomerular filtration rate/1.73 sq M pre dicted among blacks [Volume Rate/Area] in Serum or Plasma by Creatinine-based formula (MDRD) 59 mL/min [facility] ([facility]) <content>CHRONIC KIDNEY DISEASE STAGING PER NKF</content>
<content></content>
<content>STAGE I & II GFR >= 60 NORMAL TO MILDLY DECREASED</content>
<content>STAGE III GFR 30-59 MODERATELY DECREASED</content>
<content>STAGE IV GFR 15-29 SEVERELY DECREASED</content>
<content>STAGE V GFR <15 VERY LITTLE GFR LEFT</content>
<content>ESRD GFR <15 ON NET LEAD DEVELOPER</content>
<content></content> Glomerular filtration rate/1.73 sq M pre dicted among non-blacks [Volume Rate/Area] in Serum or Plasma by Creatinine-based formula (MDRD) 48 mL/min [facility] ([facility]) Calcium [Mass/volume] in Serum or Plasma 9.4 mg/dL 8.5-10.1 [facility] ([facility]) ID Date Data Source [id number] 01/01/2020 07:43:00 AM EDT [facility] ([facility]) Name Value Range Interpretation Code Description Data Elizabeth rce(s) Supporting Document(s) Calcidiol [Mass/volume] in Serum or Plasma 44.6 24.0-80.0 [facility] ([facility]) This test was performed using [employer] I P Vitamin D immunoassay kit. Values obtained with different assay methods should not be used interchangeably. ID Date Data Source [id number] 01/01/2020 07:42:00 AM EDT [facility] ([facility]) Name Value Range Interpretation Code Description Data Elizabeth rce(s) Supporting Document(s) Glucose [Mass/volume] in Serum or Plasma 153 mg/dL 74-99 [facility] ([facility]) 100-125 mg/dL PRE-DIABETES/FASTING >126 mg/dL DIABETES/FASTING Urea nitrogen [Mass/volume] in Serum or Plasma 17 mg/dL 7-18 [facility] ([facility]) Sodium [Moles/volume] in Serum or Plasma 144 meq/L 136-145 [facility] ([facility]) Creatinine 1.2 mg/dL 0.6-1.3 [facility] ([facility]) Chloride [Moles/volume] in Serum or Plasma 105 meq/L 98-107 [facility] ([facility]) Carbon dioxide, total [Moles/volume] in Serum or Plasma 28 meq/L 21 -32 [facility] ([facility]) Potassium [Moles/volume] in Serum or Plasma 4.2 meq/L 3.5-5.1 [facility] ([facility]) Glomerular filtration rate/1.73 sq M pre dicted among blacks [Volume Rate/Area] in Serum or Plasma by Creatinine-based formula (MDRD) 53 mL/min [facility] ([facility]) <content>CHRONIC KIDNEY DISEASE STAGING PER NKF</content>
<content></content>
<content>STAGE I & II GFR >= 60 NORMAL TO MILDLY DECREASED</content>
<content>STAGE III GFR 30-59 MODERATELY DECREASED</content>
<content>STAGE IV GFR 15-29 SEVERELY DECREASED</content>
<content>STAGE V GFR <15 VERY LITTLE GFR LEFT</content>
<content>ESRD GFR <15 ON NET LEAD DEVELOPER</content>
<content></content> Calcium [Mass/volume] in Serum or Plasma 9.5 mg/dL 8.5-10.1 [facility] ([facility]) Glomerular filtration rate/1.73 sq M pre dicted among non-blacks [Volume Rate/Area] in Serum or Plasma by Creatinine-based formula (MDRD) 44 mL/min [facility] ([facility]) ID Date Data Source [id number] 01/01/2020 07:42:00 AM EDT [facility] ([facility]) Name Value Range Interpretation Code Description Data Elizabeth rce(s) Supporting Document(s) Leukocytes [#/volume] in Blood by Automated count 7.3 x10*3/UL 4.1-10 .9 [facility] ([facility]) MCV 83.8 fL 80.0-97.0 [facility] ([facility]) Hematocrit [Volume Fraction] of Blood by Automated count 44.4 % 3 7.0-51.0 [facility] ([facility]) Hemoglobin [Mass/volume] in Blood 14.9 g/dL 12.0-18.0 [facility] ([facility]) Erythrocytes [#/volume] in Blood by Automated count 5.29 x10*6/UL 4.2 0-6.30 [facility] ([facility]) MCHC 33.6 g/dL 31.0-38.0 [facility] ([facility]) MCH 28.1 pg 26.0-32.0 [facility] ([facility]) Erythrocyte distribution width [Ratio] by Automated count 13.3 % 11.6-13.7 [facility] ([facility]) MPV 8.0 FL 7.8-11.0 [facility] ([facility]) Platelets [#/volume] in Blood by Automated count 350 x10*3/UL 140-440 [facility] ([facility] Lymph % 18.6 % 10.0-58.5 [facility] ([facility]) Lymph # 1.3 x10*3/UL 0.6-4.1 [facility] ([facility]) Mid % 4.6 % 1.7-9.3 [facility] Neut % 76.8 % 37.0-92.0 [facility] ([facility]) Mid # 0.4 x10*3/UL 0.1-0.6 [facility] ([facility]) Neut # 5.6 x10*3/UL 2.0-7.8 [facility] ([facility]) ID Date Data Source [id number] 12/28/2019 08:55:00 AM EDT [facility] ([facility]) Name Value Range Interpretation Code Description Data Elizabeth rce(s) Supporting Document(s) Laboratory test finding (navigational concept) Laboratory test result [facility] ([facility]) ID Date Data Source [id number] 11/27/2019 12:00:00 AM EDT [facility] Tonja Cardenas MD Patient Name: SANTOSH [id number] [facility] Date of : Floor Date of Exam: 11/27/2019[place] Resendez [id number]#: Fax: [phone] EXAM: THORACIC SPINE (3 VIEW) XRAYCLINICAL INFORMATION: Back pain.Two views. These images were obtained using digital radiography.Comparison is 09/25/2002, the latest prior.There is anterior disc space narrowing and a nterior tipping at every level. This has increased from the prior exam. Vertebral body height isunchanged with the exception of a mild anterior wedge deformity seeninvolving T6. This represents a change. The pedicles are intactbilaterally.IMPRESSION:Chronic changes as described above.Amarjit Mitchell, SUSAN/Alvarado you for referring SANTOSH COOK to our office. Electronically Signed - AMARJIT MITCHELL DO 11/28/19 11:14 Name Value Range Interpretation Code Description Data Elizabeth rce(s) Supporting Document(s) ID Date Data Source [id number] 11/19/2019 10:04:00 AM EDT [facility] ([facility]) Name Value Range Interpretation Code Description Data Elizabeth rce(s) Supporting Document(s) Glucose, Fasting 144 mg/dL 70-100 [facility] ([facility]) Glomerular Filtration Rate 47.5 [facility] ([facility]) <content>Units are mL/min/1.73 m2</content>
<content></content>
<content>Chronic Kidney Disease Staging per NKF:</content>
<content></content>
<content>Stage I & II GFR >=60 Normal to Mildly Decreased</content>
<content>Stage III GFR 30- 59 Moderately Decreased</content>
<content>Stage IV GFR 15-29 Severely Decreased</content>
<content>Stage V GFR <15 Very Little GFR Left</content>
<content>ESRD GFR <15 on NET LEAD DEVELOPER</content>
<content></content> Creatinine For GFR 1.18 mg/dL 0.55-1.30 [facility] ([facility]) Blood Urea Nitrogen 21 mg/dL 7-18 [facility] ([facility]) Sodium Level 141 meq/L 136-145 [facility] ([facility]) Potassium Serum 3.6 meq/L 3.5-5.1 [facility] ([facility]) Chloride Level 108 meq/L 98-107 [facility] ([facility]) Carbon Dioxide Level 27 meq/L 21-32 [facility] ( [facility]) Anion Gap 6 meq/L 8-16 [facility] ([facility]) Calcium Level 9.0 mg/dL 8.8-10.2 [facility] ([facility]) ID Date Data Source [id number] 11/19/2019 10:04:00 AM EDT [facility] Name Value Range Interpretation Code Description Data Elizabeth rce(s) Supporting Document(s) CPK Creatine Phosphokinase 33 U/L 26-192 [facility] ([facility]) CK-MB Value Mass [facility] MB/CK Relative Index 3.03 [facility] ([facility]) <content>DIAGNOSIS CRITERIA</content>
<content>MMB ng/ml Relative Index (RI)</content>
<content>NON-AMI < or = 5 N/A</content>
<content>HUIZAR ZONE > 5 < or = 4</content>
<content>AMI > 5 > 4</content>
<content></content> Troponin I Laboratory test result [facility] ([facility]) <content>Troponin I Reference Interval f or Siemens [place] LOCI:</content>
<content></content>
<content>99th Percentile= 0.00-0.045 ng/ml</content>
<content></content>
<content>Risk Stratification:</content>
<content><= 0.10 ng/ml Decreased Risk for Adverse Clinical</content>
<content>Events.</content>
<content>0.10-1.50 ng/ml Increased Risk for Adverse Clinical</content>
<content>Events. Evaluation of additional</content>
<content>criterion and/or repeat testing in 2-6</content>
<content>hours is suggested to rule out myocardial</content>
<content>damage.</content>
<content>>= 1.50 ng/ml Indicative of Myocardial Injury.</content>
<content></content> ID Date Data Source [id number] 11/19/2019 10:04:00 AM EDT [facility] Name Value Range Interpretation Code Description Data Elizabeth rce(s) Supporting Document(s) White Blood Count 8.4 10 4.0-10.0 [facility] ([facility]) Hemoglobin 14.3 g/dL 12.0-15.5 [facility] ([facility]) Red Blood Count 5.08 10 4.00-5.40 [facility] ([facility]) Hematocrit 44.8 % 36.0-47.0 [facility] ([facility] Mean Corpuscular Hemoglobin 28.1 pg 27.0-33.0 ME [facility] ([facility]) Mean Corpuscular HGB Conc 31.9 g/dL 32.0-36.5 MED[facility] NT ([facility]) Mean Corpuscular Volume 88.2 fl 80.0-96.0 [facility] ([facility]) Platelet Count, Automated 299 10 150-450 MED[facility] NT ([facility]) Red Cell Distribution Width 13.7 % 11.5-14.5 [facility] ([facility]) Neutrophils % 69.6 % 36.0-66.0 [facility] ([facility]) Lymph % 13.8 % 24.0-44.0 [facility] ([facility]) Mclennan % 7.6 % 0.0-5.0 [facility] ([facility]) Eos % 7.2 % 0.0-3.0 [facility] ([facility]) Baso % 1.4 % 0.0-1.0 [facility] ([facility]) Immature Granulocyte % 0.4 % 0-3.0 [facility] ([facility]) Nucleated Red Blood Cell % 0.0 % 0-0 [facility] ([facility]) Mclennan # 0.6 10 0.0-0.8 [facility] ([facility]) Lymph # 1.2 10 1.5-5.0 [facility] ([facility]) Neutrophils # 5.8 10 1.5-8.5 [facility] ([facility]) Baso # 0.1 10 0.0-0.2 [facility] ([facility]) Eos # 0.6 10 0.0-0.5 [facility] ([facility]) ID Date Data Source [id number] 11/07/2019 08:21:00 AM EDT [facility] ([facility] Name Value Range Interpretation Code Description Data Elizabeth rce(s) Supporting Document(s) Hemoglobin A1c/Hemoglobin.total in Blood 5.7 g/dL 4.8-5.6 [facility] Lab Result Notes: Pre-Diabetes 5.7 - 6.4 % Diabetes = or > 6.5% Glucose mean value [Mass/volume] in Blood Estimated fr om glycated hemoglobin 117 mg/dL 60-110 [facility] ID Date Data Source [id number] 11/07/2019 08:21:00 AM EDT [facility] ([facility] Name Value Range Interpretation Code Description Data Elizabeth rce(s) Supporting Document(s) Leukocytes [#/volume] in Blood by Automated count 9.5 x10*3/UL 4.1-10 .9 [facility] ([facility] Erythrocytes [#/volume] in Blood by Automated count 5.44 x10*6/UL 4.2 0-6.30 [facility] Hemoglobin [Mass/volume] in Blood 15.1 g/dL 12.0-18.0 [facility] ([facility]) Hematocrit [Volume Fraction] of Blood by Automated count 45.1 % 3 7.0-51.0 [facility] ([facility]) MCV 82.9 fL 80.0-97.0 [facility]) MCHC 33.5 g/dL 31.0-38.0 [facility] ([facility]) MCH 27.8 pg 26.0-32.0 [facility] ([facility]) Platelets [#/volume] in Blood by Automated count 337 x10*3/UL 140-440 [facility] Erythrocyte distribution width [Ratio] by Automated count 13.2 % 11.6-13.7 [facility] ([facility]) MPV 8.4 FL 7.8-11.0 [facility] ([facility]) Neut % 77.1 % 37.0-92.0 [facility] Mid % 4.6 % 1.7-9.3 [facility] Lymph % 18.3 % 10.0-58.5 [facility] Neut # 7.3 x10*3/UL 2.0-7.8 [facility] ([facility]) Lymph # 1.7 x10*3/UL 0.6-4.1 [facility] ([facility]) Mid # 0.5 x10*3/UL 0.1-0.6 [facility] ([facility]) ID Date Data Source [id number] 11/07/2019 08:21:00 AM EDT [facility] ([facility]) Name Value Range Interpretation Code Description Data Elizabeth rce(s) Supporting Document(s) Hemoglobin A1c/Hemoglobin.total in Blood <pending> [facility] ([facility]) ID Date Data Source [id number] 10/24/2019 09:34:00 AM EDT [facility] ([facility]) Name Value Range Interpretation Code Description Data Elizabeth rce(s) Supporting Document(s) Leukocytes [#/volume] in Blood by Automated count 8.6 x10*3/UL 4.1-10 .9 [facility] ([facility]) Erythrocytes [#/volume] in Blood by Automated count 4.87 x10*6/UL 4.2 0-6.30 [facility] ([facility]) Hemoglobin [Mass/volume] in Blood 13.6 g/dL 12.0-18.0 [facility] ([facility]) MCV 83.0 fL 80.0-97.0 [facility] Hematocrit [Volume Fraction] of Blood by Automated count 40.4 % 3 7.0-51.0 [facility] ([facility]) MCH 27.9 pg 26.0-32.0 [facility] MCHC 33.6 g/dL 31.0-38.0 [facility] ([facility]) Erythrocyte distribution width [Ratio] by Automated count 12.7 % 11.6-13.7 [facility] ([facility]) Platelets [#/volume] in Blood by Automated count 362 x10*3/UL 140-440 [facility] ([facility]) MPV 7.9 FL 7.8-11.0 [facility] ([facility]) Mid % 3.8 % 1.7-9.3 [facility]) Lymph % 14.9 % 10.0-58.5 [facility] ([facility]) Mid # 0.5 x10*3/UL 0.1-0.6 [facility] ([facility]) Neut % 81.3 % 37.0-92.0 [facility] ([facility]) Lymph # 1.2 x10*3/UL 0.6-4.1 [facility] ([facility]) Neut # 6.9 x10*3/UL 2.0-7.8 [facility] ([facility]) ID Date Data Source [id number] 10/18/2019 10:59:00 AM EST [facility] ([facility]) Name Value Range Interpretation Code Description Data Elizabeth rce(s) Supporting Document(s) C reactive protein [Mass/volume] in Serum or Plasma by High sensitivity method 3.36 mg/dL 0.00-0.30 [facility] ([facility] ) ID Date Data Source [id number] 10/18/2019 10:58:00 AM EST [facility] ([facility]) Name Value Range Interpretation Code Description Data Elizabeth rce(s) Supporting Document(s) Erythrocyte sedimentation rate by Westergren method 34 mm/hr 0-15 [facility] ([facility]) ID Date Data Source [id number] 10/18/2019 10:58:00 AM EST [facility] ([facility]) Name Value Range Interpretation Code Description Data Elizabeth rce(s) Supporting Document(s) Leukocytes [#/volume] in Blood by Automated count 9.3 x10*3/UL 4.1-10 .9 [facility] ([facility]) Erythrocytes [#/volume] in Blood by Automated count 4.75 x10*6/UL 4.2 0-6.30 [facility] ([facility]) MCV 83.6 fL 80.0-97.0 [facility] ([facility]) Hematocrit [Volume Fraction] of Blood by Automated count 39.7 % 3 7.0-51.0 [facility] Hemoglobin [Mass/volume] in Blood 13.4 g/dL 12.0-18.0 [facility] ([facility]) MCH 28.3 pg 26.0-32.0 [facility]) MCHC 33.9 g/dL 31.0-38.0 [facility] ([facility]) Platelets [#/volume] in Blood by Automated count 279 x10*3/UL 140-440 [facility] Erythrocyte distribution width [Ratio] by Automated count 13.0 % 11.6-13.7 [facility] ([facility]) Lymph % 12.2 % 10.0-58.5 [facility] ([facility] Mid % 3.6 % 1.7-9.3 [facility] ([facility]) MPV 8.2 FL 7.8-11.0 [facility] ([facility]) Mid # 0.4 x10*3/UL 0.1-0.6 [facility] ([facility]) Neut % 84.2 % 37.0-92.0 [facility] ([facility]) Lymph # 1.1 x10*3/UL 0.6-4.1 [facility] ([facility]) Neut # 7.8 x10*3/UL 2.0-7.8 [facility] ([facility]) ID Date Data Source [id number] 10/17/2019 12:21:00 PM EST [facility] ([facility]) Name Value Range Interpretation Code Description Data Elizabeth rce(s) Supporting Document(s) C reactive protein [Mass/volume] in Serum or Plasma by High sensitivity method 3.02 mg/dL 0.00-0.30 [facility] ([facility] ) Fibrin D-dimer FEU [Mass/volume] in Platelet poor plasma 3962.33 ng/m L [facility] ([facility]) ID Date Data Source [id number] 10/17/2019 12:20:00 PM EST [facility] ([facility]) Name Value Range Interpretation Code Description Data Elizabeth rce(s) Supporting Document(s) Erythrocyte sedimentation rate by Westergren method 32 mm/hr 0-15 [facility] ([facility]) ID Date Data Source [id number] 10/17/2019 12:20:00 PM EST [facility] ([facility]) Name Value Range Interpretation Code Description Data Elizabeth rce(s) Supporting Document(s) Hemoglobin [Mass/volume] in Blood 14.2 g/dL 12.0-18.0 [facility] ([facility]) Erythrocytes [#/volume] in Blood by Automated count 5.02 x10*6/UL 4.2 0-6.30 [facility] ([facility]) Leukocytes [#/volume] in Blood by Automated count 13.9 x10*3/UL 4.1-1 0.9 [facility] ([facility]) NOTE: RESULT VERIFIED. Hematocrit [Volume Fraction] of Blood by Automated count 42.1 % 3 7.0-51.0 [facility] ([facility]) MCV 83.8 fL 80.0-97.0 [facility] ([facility]) MCH 28.3 pg 26.0-32.0 [facility] ([facility]) MCHC 33.7 g/dL 31.0-38.0 [facility] ([facility]) Platelets [#/volume] in Blood by Automated count 308 x10*3/UL 140-440 [facility] ([facility]) Lymphocytes/100 leukocytes in Blood by Automated count 10.2 % 10. 0-58.5 [facility] ([facility]) Platelet mean volume [Entitic volume] in Blood by Hebert 8.5 FL 7.8-11.0 [facility] ([facility]) Erythrocyte distribution width [Ratio] by Automated count 12.9 % 11.6-13.7 [facility] ([facility]) Mid # 0.4 x10*3/UL 0.1-0.6 [facility] ([facility]) Mid % 2.8 % 1.7-9.3 [facility] ([facility] ) Lymph # 1.4 x10*3/UL 0.6-4.1 [facility] ([facility]) Neut % 87.0 % 37.0-92.0 [facility] ([facility] ) Neutrophils [#/volume] in Semen by Manual count 12.1 x10*3/UL 2.0-7.8 [facility] ([facility] ) ID Date Data Source [id number] 10/17/2019 12:20:00 PM EST [facility] ([facility]) Name Value Range Interpretation Code Description Data Elizabeth rce(s) Supporting Document(s) Leukocytes [#/volume] in Blood by Automated count 13.9 x10*3/UL 4.1-1 0.9 [facility] ([facility]) NOTE: RESULT VERIFIED. Erythrocytes [#/volume] in Blood by Automated count 5.02 x10*6/UL 4.2 0-6.30 [facility] ([facility]) Hematocrit [Volume Fraction] of Blood by Automated count 42.1 % 3 7.0-51.0 [facility] ([facility]) Hemoglobin [Mass/volume] in Blood 14.2 g/dL 12.0-18.0 [facility] ([facility]) MCV 83.8 fL 80.0-97.0 [facility]) MCH 28.3 pg 26.0-32.0 [facility] Erythrocyte distribution width [Ratio] by Automated count 12.9 % 11.6-13.7 [facility] ([facility]) MCHC 33.7 g/dL 31.0-38.0 [facility] Platelets [#/volume] in Blood by Automated count 308 x10*3/UL 140-440 [facility] ([facility]) Lymph % 10.2 % 10.0-58.5 [facility]) Mid % 2.8 % 1.7-9.3 [facility]) MPV 8.5 FL 7.8-11.0 [facility] Neut % 87.0 % 37.0-92.0 [facility] Mid # 0.4 x10*3/UL 0.1-0.6 [facility] ([facility]) Lymph # 1.4 x10*3/UL 0.6-4.1 [facility] ([facility]) Neut # 12.1 x10*3/UL 2.0-7.8 [facility] ([facility]) ID Date Data Source [id number] 10/17/2019 12:20:00 PM EST [facility] ([facility]) Name Value Range Interpretation Code Description Data Elizabeth rce(s) Supporting Document(s) Erythrocyte sedimentation rate by Westergren method 32 mm/hr 0-15 [facility] ([facility]) ID Date Data Source [id number] 10/16/2019 12:00:00 AM EST [facility] Veronica De Los Santos DO Patient Name: SANTOSH [id number] [facility] Date of : 1945[address] [facility]: [facility] [id number] Fax: [phone] EXAM: US EXTREMITY VEINS, UNILATERALCLINICAL INFORMATION: Posterior calf pain. Prior DVT right leg.Real-time compression and duplex Doppler interrogation of the left lowerextremity deep venous system is performed. The left common femoral,superficial femoral and popliteal veins are fully compressible withtransducer pressure and demonstrate normal spontaneous and phasic flowwithout evidence of deep venous thrombosis.IMPRESSION:No evidence of deep venous thrombosis of left lower extremity femoral andpopliteal venous system.Accredited by the [place] [employer] in Vascular PeripheralUltrasound.DIANE Kaplan/Alvarado you for referring SANTOSH COOK to our office. Electronically Signed - MENDEZ HUIZAR MD 10/17/19 10:57 Name Value Range Interpretation Code Description Data Elizabeth rce(s) Supporting Document(s) ID Date Data Source [id number] 09/27/2019 09:36:00 AM EST [facility] ([facility]) Name Value Range Interpretation Code Description Data Elizabeth rce(s) Supporting Document(s) Glucose, Fasting 106 mg/dL 70-100 [facility] ([facility]) Creatinine For GFR 1.15 mg/dL 0.55-1.30 [facility] ([facility]) Glomerular Filtration Rate 49.1 [facility] ([facility]) <content>Units are mL/min/1.73 m2</content>
<content></content>
<content>Chronic Kidney Disease Staging per NKF:</content>
<content></content>
<content>Stage I & II GFR >=60 Normal to Mildly Decreased</content>
<content>Stage III GFR 30- 59 Moderately Decreased</content>
<content>Stage IV GFR 15-29 Severely Decreased</content>
<content>Stage V GFR <15 Very Little GFR Left</content>
<content>ESRD GFR <15 on NET LEAD DEVELOPER</content>
<content></content> Blood Urea Nitrogen 25 mg/dL 7-18 [facility] ([facility]) Sodium Level 144 meq/L 136-145 [facility] ([facility]) Potassium Serum 4.4 meq/L 3.5-5.1 [facility] ([facility]) Chloride Level 108 meq/L 98-107 [facility] Carbon Dioxide Level 28 meq/L 21-32 [facility] Anion Gap 8 meq/L 8-16 [facility] Alt/SGPT 26 U/L 12-78 [facility] ([facility] Ast/Sgot 13 U/L 7-37 [facility] ([facility]) Calcium Level 9.3 mg/dL 8.8-10.2 [facility] ([facility] Alkaline Phosphatase 120 U/L 45-117 [facility] Bilirubin,Total 0.6 mg/dL 0.2-1.0 [facility] ([facility]) Total Protein 6.9 GM/DL 6.4-8.2 [facility] ([facility]) Albumin 3.8 GM/DL 3.2-5.2 [facility] ([facility]) Albumin/Globulin Ratio 1.23 1.00-1.93 [facility] ([facility]) ID Date Data Source [id number] 09/27/2019 09:36:00 AM EST [facility] ([facility]) Name Value Range Interpretation Code Description Data Elizabeth rce(s) Supporting Document(s) Erythrocyte sedimentation rate by Westergren method 18 mm/hr 0-30 [facility] ([facility]) ID Date Data Source [id number] 09/27/2019 09:36:00 AM EST [facility] ([facility]) Name Value Range Interpretation Code Description Data Elizabeth rce(s) Supporting Document(s) White Blood Count 8.2 10 4.0-10.0 [facility] ([facility] Red Blood Count 5.09 10 4.00-5.40 [facility] ([facility]) Hemoglobin 14.5 g/dL 12.0-15.5 [facility] ([facility]) Hematocrit 45.4 % 36.0-47.0 [facility] ([facility]) Mean Corpuscular Hemoglobin 28.5 pg 27.0-33.0 [facility] ([facility]) Mean Corpuscular Volume 89.2 fl 80.0-96.0 M EDENT ([facility]) Platelet Count, Automated 305 10 150-450 [facility] ([facility]) Red Cell Distribution Width 13.3 % 11.5-14.5 [facility] ([facility]) Mean Corpuscular HGB Conc 31.9 g/dL 32.0-36.5 [facility] ([facility]) Nucleated Red Blood Cell % 0.0 % 0-0 [facility] ([facility]) ID Date Data Source [id number] 09/27/2019 09:36:00 AM EST [facility] ([facility]) Name Value Range Interpretation Code Description Data Elizabeth rce(s) Supporting Document(s) Prothrombin Time 12.8 s 11.8-14.0 [facility] ([facility]) Inr 0.99 [facility] ([facility]) THERAPUTIC HUMAN INR VALUES INDICATIONS NORMAL RANGES PROPHYLAXIS/TREATMENT OF: VENOUS THROMBOSIS 2.0-3.0 PULMONARY EMBOLISM 2.0-3.0 PREVENTION OF SYSTEMIC EMBOLISM FROM: TISSUE HEART VALVES 2.0-3.0 ACUTE MYOCARDIAL INFARCTION 2.0-3.0 VALVULAR HEART DISEASE 2.0-3.0 ATRIAL FIBRILLATION 2.0-3.0 MECHANICAL VALVES(HIGH RISK) 2.5-3.5 RECURRENT MYOCARDIAL INFARCTION 2.5-3.5 ID Date Data Source [id number] 09/27/2019 09:36:00 AM EST [facility] ([facility]) Name Value Range Interpretation Code Description Data Elizabeth rce(s) Supporting Document(s) Prothrombin Time 12.8 s 11.8-14.0 [facility] ([facility]) Inr 0.99 [facility] ([place] [facility] THERAPUTIC HUMAN INR VALUES INDICATIONS NORMAL RANGES PROPHYLAXIS/TREATMENT OF: VENOUS THROMBOSIS 2.0-3.0 PULMONARY EMBOLISM 2.0-3.0 PREVENTION OF SYSTEMIC EMBOLISM FROM: TISSUE HEART VALVES 2.0-3.0 ACUTE MYOCARDIAL INFARCTION 2.0-3.0 VALVULAR HEART DISEASE 2.0-3.0 ATRIAL FIBRILLATION 2.0-3.0 MECHANICAL VALVES(HIGH RISK) 2.5-3.5 RECURRENT MYOCARDIAL INFARCTION 2.5-3.5 ID Date Data Source [id number] 09/27/2019 09:36:00 AM EST [facility] ([facility]) Name Value Range Interpretation Code Description Data Elizabeth rce(s) Supporting Document(s) Creatinine For GFR 1.15 mg/dL 0.55-1.30 [facility] ([facility]) Glucose, Fasting 106 mg/dL 70-100 [facility] ([facility]) Glomerular Filtration Rate 49.1 [facility] ([facility]) <content>Units are mL/min/1.73 m2</content>
<content></content>
<content>Chronic Kidney Disease Staging per NKF:</content>
<content></content>
<content>Stage I & II GFR >=60 Normal to Mildly Decreased</content>
<content>Stage III GFR 30- 59 Moderately Decreased</content>
<content>Stage IV GFR 15-29 Severely Decreased</content>
<content>Stage V GFR <15 Very Little GFR Left</content>
<content>ESRD GFR <15 on NET LE[employer]EL[employer]</content>
<content></content> Blood Urea Nitrogen 25 mg/dL 7-18 [facility] ([facility]) Potassium Serum 4.4 meq/L 3.5-5.1 [facility] ([facility]) Chloride Level 108 meq/L 98-107 [facility] ([facility]) Sodium Level 144 meq/L 136-145 [facility] ([facility]) Anion Gap 8 meq/L 8-16 [facility] ([facility] Carbon Dioxide Level 28 meq/L 21-32 [facility] ([facility]) Calcium Level 9.3 mg/dL 8.8-10.2 [facility] ([facility]) Alkaline Phosphatase 120 U/L 45-117 [facility] ([facility]) Bilirubin,Total 0.6 mg/dL 0.2-1.0 [facility] ([facility]) Alt/SGPT 26 U/L 12-78 [facility] ([facility] Ast/Sgot 13 U/L 7-37 [facility] ([facility]) Albumin 3.8 GM/DL 3.2-5.2 [facility] ([facility]) Total Protein 6.9 GM/DL 6.4-8.2 [facility] ([facility]) Albumin/Globulin Ratio 1.23 1.00-1.93 [facility] ([facility]) ID Date Data Source [id number] 09/27/2019 09:36:00 AM EST [facility] ([facility]) Name Value Range Interpretation Code Description Data Elizabeth rce(s) Supporting Document(s) Erythrocyte sedimentation rate by Westergren method 18 mm/hr 0-30 [facility] ([facility]) ID Date Data Source [id number] 09/27/2019 09:36:00 AM EST [facility] ([facility]) Name Value Range Interpretation Code Description Data Elizabeth rce(s) Supporting Document(s) White Blood Count 8.2 10 4.0-10.0 [facility] ([facility]) Hematocrit 45.4 % 36.0-47.0 MED[facility] ([facility]) Hemoglobin 14.5 g/dL 12.0-15.5 [facility] ([facility]) Red Blood Count 5.09 10 4.00-5.40 [facility] ([facility]) Mean Corpuscular Volume 89.2 fl 80.0-96.0 [facility] ([facility]) Mean Corpuscular HGB Conc 31.9 g/dL 32.0-36.5 MEDE NT ([facility]) Mean Corpuscular Hemoglobin 28.5 pg 27.0-33.0 ME DENT ([facility]) Red Cell Distribution Width 13.3 % 11.5-14.5 ME DENT ([facility]) Nucleated Red Blood Cell % 0.0 % 0-0 MED ENT ([facility]) Platelet Count, Automated 305 10 150-450 MEDE NT ([facility]) ID Date Data Source [id number] 09/14/2019 12:00:00 AM EST [facility] Tonja Cardenas MD Patient Name: SANTOSH [id number] [facility] Date of : Floor Date of Exam: 09/14/2019[place] Res[place] [id number]#: Fax: [phone] EXAM: MAMMO SCREENING WITH CADCLINICAL INFORMATION: Screening.TECHNIQUE: 2D and 3D tomosynthesis images were performed for each breast.COMPARISON: 06/01/18, 04/26/17.She has no current complaint or personal history of breast cancer. H erfamily history is unknown.The Volpara volumetric breast density category is B, there are scatteredareas of fibroglandular density.FINDINGS:There is a moderate amount of residual fibroglandular tissue remainingwhich may reduce the sensitivity of mammography. Scattered small benignappearing calcifications are present of doubtful clinical significance.Large coarse calcifications are present, of no clinical significance.Scattered lymph nodes are seen in the axilla.No dominant masses, suspicious cluster of microcalcifications or secondarysigns of malignancy are seen.The 3D tomosynthesis images show no additional findings.IMPRESSION:BI-RADS Category 2 - Benign Finding(s). No evidence of malignancy. Stableexamination. The patient should have a repeat mammogram in one year.This mammogram was read with the assistance of [employer], an FDAapproved computer aided detection system for mammography.Negative x-ray reports should not delay surgical consultation if a dominantor clinically suspicious mass is present.Not all breast cancers can be identified by mammography. Therefore, werecommend that you continue to perform regular breast self-examination andphysical examination and then promptly contact your physician of anyconcerns or changes.Adenosis and dense breasts may obscure an underlying neoplasm.The patient states that the last clinical breast exam was in 06/02.Based on the personal and family history information your patient suppliedat the time of imaging, her lifetime risk of breast cancer estimated by theTyrer-Cuzick model is 3%. Given that this patient has less than 20% TCrisk score, no further medical management is currently recommended at thistime.Lew Oreilly, ALEXYS/Alvarado you for referring SANTOSH COOK to our office. Electronically Signed - LEW OREILLY MD 09/14/19 15:53 Name Value Range Interpretation Code Description Data Elizabeth rce(s) Supporting Document(s) ID Date Data Source [id number] 09/14/2019 10:12:00 AM EST [facility] ([facility]) Name Value Range Interpretation Code Description Data Elizabeth rce(s) Supporting Document(s) 3D Bi-Lateral Mammogram Laboratory test result [facility] ([facility]) Dexa/Bone Density Laboratory test result [facility] ([facility]) Procedure Vital Signs ID Date Data Source [id number] Name Value Range Interpretation Code Description Data Source(s) Body mass index (BMI) [Ratio] 29.6 kg/m2 29.6 k g/m2 [facility] ([facility]) Body weight 153.00 [lb_av] 153.00 [lb_av] MEDEN T ([facility]) Body height 60.25 [in_i] 60.25 [in_i] [facility] ([facility]) 5'0.25" Heart rate 96 /min 96 /min [facility] ([facility]) Diastolic blood pressure 68 mm[Hg] 68 mm[Hg] [facility] ([facility]) RT Arm Systolic blood pressure 106 mm[Hg] 106 mm[Hg] M EDENT ([facility]) RT Arm Respiratory rate 14 /min 14 /min [facility] ( [facility] Body mass index (BMI) [Ratio] 29.4 kg/m2 29.4 k g/m2 [facility] ([facility] ) Body weight 155.50 [lb_av] 155.50 [lb_av] MEDEN T ([facility] ) Body height 61 [in_i] 61 [in_i] [facility] ([facility] ) 5'1" Body temperature 96.8 [degF] 96.8 [degF] [facility] ([facility] ) Heart rate 75 /min 75 /min [facility] ([facility] ) Diastolic blood pressure 80 mm[Hg] 80 mm[Hg] [facility] ([facility] ) Systolic blood pressure 124 mm[Hg] 124 mm[Hg] M EDENT ([facility] ) Body mass index (BMI) [Ratio] 30.3 kg/m2 30.3 k g/m2 [facility] ([facility]) Oxygen saturation in Arterial blood by Pulse oximetry 99 % 99 % [facility] ([facility]) RM Air Body weight 156.50 [lb_av] 156.50 [lb_av] MEDEN T ([facility]) Body height 60.25 [in_i] 60.25 [in_i] [facility] ([facility]) 5'0.25" Heart rate 94 /min 94 /min [facility] ([facility]) Diastolic blood pressure 72 mm[Hg] 72 mm[Hg] [facility] ([facility]) RT Arm Systolic blood pressure 122 mm[Hg] 122 [facility]Hg[facility] RT Arm Body mass index (BMI) [Ratio] 30.0 kg/m2 30.0 k g/m2 [facility] ([facility]) Oxygen saturation in Arterial blood by Pulse oximetry --post exerci se 92 % 92 % [facility] ([facility]) RM Air Body weight 155.00 [lb_av] 155.00 [lb_av] MEDEN T ([facility]) Body height 60.25 [in_i] 60.25 [in_i] [facility] ([facility]) 5'0.25" Heart rate 117 /min 117 /min [facility] ([facility]) Diastolic blood pressure 70 mm[Hg] 70 mm[Hg] [facility] ([facility]) RT Arm Systolic blood pressure 132 mm[Hg] 132 mm[facility]Hg] [facility] RT Arm Body mass index (BMI) [Ratio] 28.0 kg/m2 28.0 k g/m2 [facility] ([facility]) Body height 62 [in_i] 62 [in_i] [facility] ([facility]) 5'2" Body weight 153.00 [lb_av] 153.00 [lb_av] MEDEN T ([facility]) Body temperature 98.0 [degF] 98.0 [degF] [facility] Oxygen saturation in Arterial blood by Pulse oximetry 97 % 97 % [facility] ([facility]) Respiratory rate 18 /min 18 /min [facility] ( [facility]) Heart rate 90 /min 90 /min [facility]) Diastolic blood pressure 68 mm[Hg] 68 mm[Hg] [facility] ([facility], [facility]) Systolic blood pressure 96 mm[Hg] 96 mm[Hg] M EDENT ([facility], [facility]) Body mass index (BMI) [Ratio] 28.5 kg/m2 28.5 k g/m2 [facility] ([facility] ) Body weight 149.50 [lb_av] 149.50 [lb_av] MEDEN T ([facility] ) Body height 60.75 [in_i] 60.75 [in_i] [facility] ([facility] ) 5'0.75" Body temperature 97.5 [degF] 97.5 [degF] [facility] ([facility] ) Body mass index (BMI) [Ratio] 29.7 kg/m2 29.7 k g/m2 [facility] ([facility]) Oxygen saturation in Arterial blood by Pulse oximetry --post exerci se 94 % 94 % [facility] ([facility]) RM Air Body weight 153.12 [lb_av] 153.12 [lb_av] MED[facility] T ([facility]) Body height 60.25 [in_i] 60.25 [in_i] [facility] ( [facility]) 5'0.25" Heart rate 87 /min 87 /min [facility] ([facility]) Diastolic blood pressure 60 mm[Hg] 60 mm[Hg] [facility] ([facility]) RT Arm Systolic blood pressure 92 mm[Hg] 92 mm[Hg] M EDENT ([facility]) RT Arm Body temperature 97.2 [degF] 97.2 [degF] [facility] ([facility] ) Body mass index (BMI) [Ratio] 31.6 kg/m2 31.6 k g/m2 [facility] ([facility]) Oxygen saturation in Arterial blood by Pulse oximetry --post exerci se 97 % 97 % [facility] ([facility]) RM Air Body weight 163.12 [lb_av] 163.12 [lb_av] MEDEN T ([facility]) Body height 60.25 [in_i] 60.25 [in_i] [facility] ([facility]) 5'0.25" Heart rate 76 /min 76 /min [facility] ([facility]) Diastolic blood pressure 58 mm[Hg] 58 mm[Hg] [facility] RT Arm Systolic blood pressure 118 mm[Hg] 118 mm[Hg] [facility] ([facility]) RT Arm Body mass index (BMI) [Ratio] 31.0 kg/m2 31.0 k g/m2 [facility] ([facility]) Oxygen saturation in Arterial blood by Pulse oximetry 99 % 99 % [facility] ([facility]) Body weight 160.00 [lb_av] 160.00 [lb_av] MED[facility] T ([facility]) Body height 60.25 [in_i] 60.25 [in_i] [facility] ([facility]) 5'0.25" Heart rate 70 /min 70 /min [facility] ([facility]) Diastolic blood pressure 70 mm[Hg] 70 mm[Hg] [facility] Systolic blood pressure 114 mm[Hg] 114 mm[Hg] [facility] ([facility]) Body mass index (BMI) [Ratio] 31.4 kg/m2 31.4 k g/m2 [facility] Oxygen saturation in Arterial blood by Pulse oximetry 97 % 97 % [facility] ([facility]) Body weight 162.00 [lb_av] 162.00 [lb_av] MED[facility] T ([facility]) Body height 60.25 [in_i] 60.25 [in_i] [facility] ([facility]) 5'0.25" Heart rate 71 /min 71 /min [facility] ([facility]) Diastolic blood pressure 70 mm[Hg] 70 mm[Hg] [facility] ([facility]) Systolic blood pressure 116 mm[Hg] 116 mm[Hg] [facility] ([facility]) Body mass index (BMI) [Ratio] 32.3 kg/m2 32.3 k g/m2 [facility] ([facility]) Oxygen saturation in Arterial blood by Pulse oximetry 95 % 95 % [facility] RM Air Body weight 167.00 [lb_av] 167.00 [lb_av] [facility] T ([facility]) Body height 60.25 [in_i] 60.25 [in_i] [facility] ([facility]) 5'0.25" Body mass index (BMI) [Ratio] 32.1 kg/m2 32.1 k g/m2 [facility] ([facility]) Body weight 165.50 [lb_av] 165.50 [lb_av] MED[facility] T ([facility]) Body height 60.25 [in_i] 60.25 [in_i] [facility] ([facility]) 5'0.25" Heart rate 92 /min 92 /min [facility] ([facility]) Diastolic blood pressure 74 mm[Hg] 74 mm[Hg] [facility] ([facility]) RT Arm Systolic blood pressure 136 mm[Hg] 136 mm[Hg] [facility] ([facility]) RT Arm Body mass index (BMI) [Ratio] 32.8 kg/m2 32.8 k g/m2 [facility] Oxygen saturation in Arterial blood by Pulse oximetry --post exerci se 95 % 95 % [facility] RM Air Body weight 169.50 [lb_av] 169.50 [lb_av] [facility] T ([facility]) Body height 60.25 [in_i] 60.25 [in_i] [facility] ([facility]) 5'0.25" Heart rate 84 /min 84 /min [facility] ([facility]) Diastolic blood pressure 52 mm[Hg] 52 mm[Hg] [facility] ([facility]) RT Arm Systolic blood pressure 122 mm[Hg] 122 mm[Hg] [facility] RT Arm Body mass index (BMI) [Ratio] 32.6 kg/m2 32.6 k g/m2 [facility] ([facility]) Body weight 168.50 [lb_av] 168.50 [lb_av] [facility] T ([facility]) Body height 60.25 [in_i] 60.25 [in_i] [facility] ([facility]) 5'0.25" Heart rate 88 /min 88 /min [facility] Diastolic blood pressure 58 mm[Hg] 58 mm[Hg] [facility] ([facility]) RT Arm Systolic blood pressure 102 mm[Hg] 102 mm[Hg] [facility] RT Arm Body mass index (BMI) [Ratio] 33.4 kg/m2 33.4 k g/m2 [facility] ([facility]) Oxygen saturation in Arterial blood by Pulse oximetry --post exerci se 94 % 94 % [facility] ([facility]) RM Air Body weight 172.50 [lb_av] 172.50 [lb_av] MED[facility] T ([facility]) Body height 60.25 [in_i] 60.25 [in_i] [facility] ([facility]) 5'0.25" Heart rate 80 /min 80 /min [facility] ([facility]) Diastolic blood pressure 80 mm[Hg] 80 mm[Hg] [facility] ([facility]) RT Arm Systolic blood pressure 122 mm[Hg] 122 mm[Hg] [facility] ([facility]) RT Arm Body mass index (BMI) [Ratio] 33.3 kg/m2 33.3 k g/m2 [facility] ([facility]) Oxygen saturation in Arterial blood by Pulse oximetry --post exerci se 96 % 96 % [facility] ([facility]) RM Air Body weight 172.00 [lb_av] 172.00 [lb_av] MEDEN T ([facility]) Body height 60.25 [in_i] 60.25 [in_i] [facility] ([facility]) 5'0.25" Heart rate 92 /min 92 /min [facility] ([facility]) Diastolic blood pressure 74 mm[Hg] 74 mm[Hg] [facility] ([facility]) RT Arm Systolic blood pressure 140 mm[Hg] 140 mm[Hg] [facility] ([facility]) RT Arm Body mass index (BMI) [Ratio] 33.2 kg/m2 33.2 k g/m2 [facility] ([facility]) Body weight 171.38 [lb_av] 171.38 [lb_av] MED[facility] T ([facility]) Body height 60.25 [in_i] 60.25 [in_i] [facility] ([facility]) 5'0.25" Heart rate 96 /min 96 /min [facility] ([facility]) Diastolic blood pressure 64 mm[Hg] 64 mm[Hg] [facility] ([facility]) RT Arm Systolic blood pressure 146 mm[Hg] 146 mm[Hg] [facility] RT Arm Body mass index (BMI) [Ratio] 33.3 kg/m2 33.3 k g/m2 [facility] ([facility]) Oxygen saturation in Arterial blood by Pulse oximetry 96 % 96 % [facility] ([facility]) RM Air Body weight 172.00 [lb_av] 172.00 [lb_av] MED[facility] T ([facility]) Body height 60.25 [in_i] 60.25 [in_i] [facility] ([facility]) 5'0.25" Heart rate 90 /min 90 /min [facility] ([facility]) Diastolic blood pressure 70 mm[Hg] 70 mm[Hg] [facility] ([facility]) Systolic blood pressure 118 mm[Hg] 118 mm[facility]Hg] [facility] Respiratory rate 20 /min 20 /min [facility] ( [facility]) Body mass index (BMI) [Ratio] 317.5 kg/m2 317.5 kg/m2 [facility] ([facility] ) Body weight 1708.00 [lb_av] 1708.00 [lb_av] MED E[facility] ([facility]) Body height 61.5 [in_i] 61.5 [in_i] [facility] ([facility]) 5'1.50" Body temperature 96.4 [degF] 96.4 [degF] [facility] ([facility]) Heart rate 80 /min 80 /min [facility] ([facility]) Diastolic blood pressure 62 mm[Hg] 62 mm[Hg] [facility] ([facility]) Systolic blood pressure 98 mm[Hg] 98 mm[Hg] M EDENT ([facility]) Body mass index (BMI) [Ratio] 32.2 kg/m2 32.2 k g/m2 [facility] ([facility]) Body weight 166.50 [lb_av] 166.50 [lb_av] MEDEN T ([facility]) Body height 60.25 [in_i] 60.25 [in_i] [facility] ( [facility] 5'0.25" Heart rate 88 /min 88 /min [facility] ([facility]) Diastolic blood pressure 78 mm[Hg] 78 mm[Hg] [facility] ([facility]) RT Arm Systolic blood pressure 128 mm[Hg] 128 mm[Hg] M EDENT ([facility]) RT Arm Diastolic blood pressure 69 mm[Hg] 69 mm[Hg] eCW1 ([facility]) Systolic blood pressure 142 mm[Hg] 142 mm[Hg] e CW1 ([facility]) Body temperature 97.2 [degF] 97.2 [degF] eCW1 ( [facility]) Respiratory rate 16 /min 16 /min eCW1 ([facility]) Heart rate 78 /min 78 /min eCW1 ([facility]) Body mass index (BMI) [Ratio] 31.16 kg/m2 31.16 kg/m2 eCW1 ([facility]) Body height 62 [in_us] 62 [in_us] eCW1 ([facility]) Body weight Measured 170.4 [lb_av] 170.4 [lb_av ] eCW1 ([facility]) Diastolic blood pressure 72 mm[Hg] 72 mm[Hg] eCW1 ([facility]) Systolic blood pressure 140 mm[Hg] 140 mm[Hg] e CW1 ([facility]) Body temperature 96.0 [degF] 96.0 [degF] eCW1 ( [facility]) Respiratory rate 16 /min 16 /min eCW1 ([facility]) Heart rate 104 /min 104 /min eCW1 ([facility]) Body mass index (BMI) [Ratio] 31.24 kg/m2 31.24 kg/m2 eCW1 ([facility]) Body height 62 [in_us] 62 [in_us] eCW1 ([facility]) Body weight Measured 170.8 [lb_av] 170.8 [lb_av ] eCW1 ([facility]) Body mass index (BMI) [Ratio] 32.0 kg/m2 32.0 k g/m2 MED[facility] ([facility]) Body weight 172.00 [lb_av] 172.00 [lb_av] MEDEN T ([facility]) Body height 61.5 [in_i] 61.5 [in_i] MED[facility] ([facility]) 5'1.50" Diastolic blood pressure 73 mm[Hg] 73 mm[Hg] eCW1 ([facility]) Systolic blood pressure 131 mm[Hg] 131 mm[Hg] e CW1 ([facility]) Body temperature 96.1 [degF] 96.1 [degF] eCW1 ( [facility]) Respiratory rate 16 /min 16 /min eCW1 ([facility]) Heart rate 85 /min 85 /min eCW1 ([facility]) Body mass index (BMI) [Ratio] 31.64 kg/m2 31.64 kg/m2 eCW1 ([facility]) Body height 62 [in_us] 62 [in_us] eCW1 ([facility]) Body weight Measured 173.0 [lb_av] 173.0 [lb_av ] eCW1 ([facility]) Diastolic blood pressure 75 mm[Hg] 75 mm[Hg] eCW1 ([facility]) Systolic blood pressure 146 mm[Hg] 146 mm[Hg] e CW1 ([facility]) Body temperature 97.5 [degF] 97.5 [degF] eCW1 ( [facility]) Respiratory rate 16 /min 16 /min eCW1 ([facility]) Heart rate 87 /min 87 /min eCW1 ([facility]) Body mass index (BMI) [Ratio] 30.98 kg/m2 30.98 kg/m2 eCW1 ([facility]) Body height 62 [in_us] 62 [in_us] eCW1 ([facility]) Body weight Measured 169.4 [lb_av] 169.4 [lb_av ] eCW1 ([facility])
[2020-08-31] MEDS ORDERED: NS 1,000 ML IV ONE (16:30)
[2020-08-31] MEDS ORDERED: NORCO, ANEXSIA 5/325MG TABLET (HYDROcodone/ACETAMINOPHEN) PO ONE (16:30)
[2020-08-31 16:44] LABS: BASO # 0.1 10^3/uL (0.0-0.2); BASO % 0.4 % (0.0-1.0); EOS % 0.1 % (0.0-3.0); HEMATOCRIT 39.4 % (36.0-47.0); HEMOGLOBIN 12.6 g/dl (12.0-15.5); LYMPH # 1.2 10^3/uL (1.5-5.0); MEAN CORPUSCULAR HEMOGLOBIN 27.7 pg (27.0-33.0); MEAN CORPUSCULAR VOLUME 86.6 fl (80.0-96.0); MONO # 1.1 10^3/uL (0.0-0.8); MONO % 8.6 % (0.0-5.0); NEUTROPHILS # 9.9 10^3/uL (1.5-8.5); NEUTROPHILS % 80.7 % (36.0-66.0); PLATELET COUNT, AUTOMATED 347 10^3/uL (150-450); RED BLOOD COUNT 4.55 10^6/uL (4.00-5.40); WHITE BLOOD COUNT 12.3 10^3/uL (4.0-10.0)
[2020-08-31] MEDS ORDERED: CYCLOBENZAPRINE 5MG TABLET PO ONE (16:45)
[2020-08-31 16:55] LABS: INR 1.02; PROTHROMBIN TIME 13.6 SECONDS (12.5-14.3)
[2020-08-31 16:56] LABS: PARTIAL THROMBOPLASTIN TIME 28.8 SECONDS (24.2-38.5)
--- OUTSIDE RECORDS SUMMARY | 2020-08-31 17:04 | CCD ---
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 OF: VENOUS THROMBOSIS 2.0-3.0 PULMONARY EMBOLISM 2.0-3.0 PREVENTION OF SYSTEMIC EMBOLISM FROM: TISSUE HEART VALVES 2.0-3.0 ACUTE MYOCARDIAL INFARCTION 2.0-3.0 VALVULAR HEART DISEASE 2.0-3.0 ATRIAL FIBRILLATION 2.0-3.0 MECHANICAL VALVES(HIGH RISK) 2.5-3.5 RECURRENT MYOCARDIAL INFARCTION 2.5-3.5 ID Date Data Source [id number] 05/13/2020 08:48:00 AM EDT [facility] ([facility]) Name Value Range Interpretation Code Description Data Elizabeth rce(s) Supporting Document(s) Thyrotropin [Units/volume] in Serum or Plasma by Detec tion limit <= 0.05 mIU/L 6.74 uIU/mL 0.36-3.74 [facility] ([facility] ) ID Date Data Source [id number] 05/13/2020 08:48:00 AM EDT [facility] ([facility]) Name Value Range Interpretation Code Description Data Elizabeth rce(s) Supporting Document(s) Glucose [Mass/volume] in Serum or Plasma 105 mg/dL 74-99 [facility] ([facility]) 100-125 mg/dL PRE-DIABETES/FASTING >126 mg/dL DIABETES/FASTING Creatinine 1.2 mg/dL 0.6-1.3 [facility] Urea nitrogen [Mass/volume] in Serum or Plasma 21 mg/dL 7-18 [facility] ([facility]) Sodium [Moles/volume] in Serum or Plasma 140 meq/L 136-145 [facility] ([facility]) Potassium [Moles/volume] in Serum or Plasma 4.1 meq/L 3.5-5.1 [facility] ([facility]) Chloride [Moles/volume] in Serum or Plasma 103 meq/L 98-107 [facility] ([facility]) Carbon dioxide, total [Moles/volume] in Serum or Plasma 26 meq/L 21 -32 [facility] ([facility]) Calcium [Mass/volume] in Serum or Plasma 8.7 mg/dL 8.5-10.1 [facility] ([facility]) Alkaline phosphatase isoenzyme [Units/volume] in Serum or Pl asma 116 mg/dL 46-116 [facility] ([facility]) Aspartate aminotransferase [Enzymatic activity/volume] in Serum or Plasma 34 U/L 15-37 [facility] ([facility] ) Alanine aminotransferase [Enzymatic activity/volume] in Seru m or Plasma 59 U/L 12-78 [facility] ([facility]) Total Bilirubin 0.9 mg/dL 0.2-1.0 [facility] ([facility]) A/G Ratio 1.06 CALC 1.00-1.90 [facility] ([facility]) Albumin [Mass/volume] in Serum or Plasma 3.7 g/dL 3.4-5.0 [facility] ([facility]) Proteinase 3 Ab [Units/volume] in Serum 7.2 g/dL 6.4-8.2 [facility] Glomerular filtration rate/1.73 sq M pre dicted among blacks [Volume Rate/Area] in Serum or Plasma by Creatinine-based formula (MDRD) 53 mL/min [facility]) <content>CHRONIC KIDNEY DISEASE STAGING PER NKF</content>
<content></content>
<content>STAGE I & II GFR >= 60 NORMAL TO MILDLY DECREASED</content>
<content>STAGE III GFR 30-59 MODERATELY DECREASED</content>
<content>STAGE IV GFR 15-29 SEVERELY DECREASED</content>
<content>STAGE V GFR <15 VERY LITTLE GFR LEFT</content>
<content>ESRD GFR <15 ON FIXED INCOME TRADING VICE PRESIDENT</content>
<content></content> Glomerular filtration rate/1.73 sq M pre dicted among non-blacks [Volume Rate/Area] in Serum or Plasma by Creatinine-based formula (MDRD) 44 mL/min [facility] ID Date Data Source [id number] 05/13/2020 08:47:[address] [facility] ([facility]) Name Value Range Interpretation Code Description Data Elizabeth rce(s) Supporting Document(s) Leukocytes [#/volume] in Blood by Automated count 8.8 x10*3/UL 4.1-10 .9 [facility] Hematocrit [Volume Fraction] of Blood by Automated count 40.1 % 3 7.0-51.0 [facility] ([facility]) Hemoglobin [Mass/volume] in Blood 13.7 g/dL 12.0-18.0 [facility] Erythrocytes [#/volume] in Blood by Automated count 4.75 x10*6/UL 4.2 0-6.30 [facility] MCHC 34.3 g/dL 31.0-38.0 [facility] MCV 84.4 fL 80.0-97.0 [facility] MCH 29.0 pg 26.0-32.0 [facility] [place] Platelets [#/volume] in Blood by Automated count 338 x10*3/UL 140-440 [facility] ([facility]) Erythrocyte distribution width [Ratio] by Automated count 13.2 % 11.6-13.7 [facility] ([facility]) MPV 7.6 FL 7.8-11.0 [facility] [place] [facility] Lymph % 16.0 % 10.0-58.5 [facility] [place] [facility] Mid % 4.3 % 1.7-9.3 [facility] [facility] Neut % 79.7 % 37.0-92.0 [facility] [facility]) Lymph # 1.4 x10*3/UL 0.6-4.1 [facility] ([facility]) Neut # 7.0 x10*3/UL 2.0-7.8 [facility] ([facility]) Mid # 0.4 x10*3/UL 0.1-0.6 [facility] ([facility]) ID Date Data Source [id number] 05/08/2020 01:27:00 PM EDT [facility] Name Value Range Interpretation Code Description Data Elizabeth rce(s) Supporting Document(s) Laboratory test finding (navigational concept) Laboratory test result [facility]) ID Date Data Source [id number] 04/07/2020 11:59:00 AM EDT [facility] ([facility]) Name Value Range Interpretation Code Description Data Elizabeth rce(s) Supporting Document(s) Thyrotropin [Units/volume] in Serum or Plasma by Detec tion limit <= 0.05 mIU/L 1.02 uIU/mL 0.36-3.74 [facility] ) ID Date Data Source [id number] 04/07/2020 11:59:00 AM EDT [facility] ([facility]) Name Value Range Interpretation Code Description Data Elizabeth rce(s) Supporting Document(s) Glucose [Mass/volume] in Serum or Plasma 106 mg/dL 74-99 [facility] ([facility]) 100-125 mg/dL PRE-DIABETES/FASTING >126 mg/dL DIABETES/FASTING Sodium [Moles/volume] in Serum or Plasma 140 meq/L 136-145 [facility] ([facility]) Urea nitrogen [Mass/volume] in Serum or Plasma 18 mg/dL 7-18 [facility] ([facility]) Creatinine 1.3 mg/dL 0.6-1.3 [facility] ([facility] Carbon dioxide, total [Moles/volume] in Serum or Plasma 27 meq/L 21 -32 [facility] ([facility]) Chloride [Moles/volume] in Serum or Plasma 102 meq/L 98-107 [facility] ([facility]) Potassium [Moles/volume] in Serum or Plasma 5.1 meq/L 3.5-5.1 [facility] ([facility]) Total Bilirubin 1.0 mg/dL 0.2-1.0 [facility] ([facility]) Calcium [Mass/volume] in Serum or Plasma 9.5 mg/dL 8.5-10.1 [facility] ([facility]) Alkaline phosphatase isoenzyme [Units/volume] in Serum or Pl asma 104 mg/dL 46-116 [facility] ([facility]) Aspartate aminotransferase [Enzymatic activity/volume] in Serum or Plasma 37 U/L 15-37 [facility] ([facility] ) Alanine aminotransferase [Enzymatic activity/volume] in Seru m or Plasma 52 U/L 12-78 [facility] ([facility]) Albumin [Mass/volume] in Serum or Plasma 4.0 g/dL 3.4-5.0 [facility] ([facility]) A/G Ratio 1.21 CALC 1.00-1.90 [facility] ([facility]) Proteinase 3 Ab [Units/volume] in Serum 7.3 g/dL 6.4-8.2 [facility] ([facility]) Glomerular filtration rate/1.73 sq M pre dicted among non-blacks [Volume Rate/Area] in Serum or Plasma by Creatinine-based formula (MDRD) 40 mL/min [facility] ([facility]) Glomerular filtration rate/1.73 sq M pre dicted among blacks [Volume Rate/Area] in Serum or Plasma by Creatinine-based formula (MDRD) 48 mL/min [facility] ([facility]) <content>CHRONIC KIDNEY DISEASE STAGING PER NKF</content>
<content></content>
<content>STAGE I & II GFR >= 60 NORMAL TO MILDLY DECREASED</content>
<content>STAGE III GFR 30-59 MODERATELY DECREASED</content>
<content>STAGE IV GFR 15-29 SEVERELY DECREASED</content>
<content>STAGE V GFR <15 VERY LITTLE GFR LEFT</content>
<content>ESRD GFR <15 ON FIXED INCOME TRADING VICE PRESIDENT</content>
<content></content> ID Date Data Source [id number] 04/07/2020 11:59:00 AM EDT [facility] ([facility]) Name Value Range Interpretation Code Description Data Elizabeth rce(s) Supporting Document(s) Magnesium 2.0 mg/dL 1.8-2.4 [facility] ID Date Data Source [id number] 04/07/2020 11:59:00 AM EDT [facility] Name Value Range Interpretation Code Description Data Elizabeth rce(s) Supporting Document(s) Leukocytes [#/volume] in Blood by Automated count 8.5 x10*3/UL 4.1-10 .9 [facility] ([facility]) Erythrocytes [#/volume] in Blood by Automated count 5.00 x10*6/UL 4.2 0-6.30 [facility] ([facility]) Hemoglobin [Mass/volume] in Blood 14.4 g/dL 12.0-18.0 [facility] Hematocrit [Volume Fraction] of Blood by Automated count 42.8 % 3 7.0-51.0 [facility] ([facility] MCHC 33.8 g/dL 31.0-38.0 [facility] ([place] [facility]) MCH 28.9 pg 26.0-32.0 [facility] ([place] [facility]) MCV 85.5 fL 80.0-97.0 [facility] ([facility]) Platelets [#/volume] in Blood by Automated count 361 x10*3/UL 140-440 [facility] ([facility]) MPV 8.3 FL 7.8-11.0 [facility] ([facility]) Erythrocyte distribution width [Ratio] by Automated count 13.3 % 11.6-13.7 [facility] ([facility]) Lymph % 19.5 % 10.0-58.5 [facility] ([place] [facility]) Mid % 5.7 % 1.7-9.3 [facility] ([facility]) Neut % 74.8 % 37.0-92.0 [facility] ([facility]) Mid # 0.5 x10*3/UL 0.1-0.6 [facility] ([facility]) Lymph # 1.6 x10*3/UL 0.6-4.1 [facility] ([facility]) Neut # 6.4 x10*3/UL 2.0-7.8 [facility] ([facility]) ID Date Data Source [id number] 03/04/2020 09:56:00 AM EDT [facility] ([facility]) Name Value Range Interpretation Code Description Data Elizabeth rce(s) Supporting Document(s) Leukocytes [#/volume] in Blood by Automated count 12.6 x10*3/UL 4.1-1 0.9 [facility] ([facility]) NOTE: CBC VERIFIED Erythrocytes [#/volume] in Blood by Automated count 4.45 x10*6/UL 4.2 0-6.30 [facility] ([facility]) MCV 84.7 fL 80.0-97.0 [facility] ([place] [facility]) Hematocrit [Volume Fraction] of Blood by Automated count 37.7 % 3 7.0-51.0 [facility] ([facility]) Hemoglobin [Mass/volume] in Blood 12.8 g/dL 12.0-18.0 [facility] ([facility]) MCHC 33.9 g/dL 31.0-38.0 [facility] [facility] Erythrocyte distribution width [Ratio] by Automated count 13.4 % 11.6-13.7 [facility] ([facility]) MCH 28.7 pg 26.0-32.0 [facility] [facility] Platelets [#/volume] in Blood by Automated count 411 x10*3/UL 140-440 [facility] ([facility]) MPV 8.0 FL 7.8-11.0 [facility] [facility] Mid % 3.3 % 1.7-9.3 [facility] [facility] Lymph % 10.9 % 10.0-58.5 [facility] [facility] Neut % 85.8 % 37.0-92.0 [facility] [facility] Neut # 10.8 x10*3/UL 2.0-7.8 [facility] ([facility]) Lymph # 1.3 x10*3/UL 0.6-4.1 [facility] ([facility]) Mid # 0.5 x10*3/UL 0.1-0.6 [facility] ([facility]) ID Date Data Source [id number] 03/04/2020 09:56:00 AM EDT [facility] ([facility]) Name Value Range Interpretation Code Description Data Elizabeth rce(s) Supporting Document(s) Glucose [Mass/volume] in Serum or Plasma 99 mg/dL 74-99 [facility] ([facility]) 100-125 mg/dL PRE-DIABETES/FASTING >126 mg/dL DIABETES/FASTING Creatinine 1.4 mg/dL 0.6-1.3 [facility] ([facility]) Sodium [Moles/volume] in Serum or Plasma 140 meq/L 136-145 [facility] ([facility]) Urea nitrogen [Mass/volume] in Serum or Plasma 17 mg/dL 7-18 [facility] ([facility]) Carbon dioxide, total [Moles/volume] in Serum or Plasma 26 meq/L 21 -32 [facility] ([facility]) Chloride [Moles/volume] in Serum or Plasma 103 meq/L 98-107 [facility] ([facility]) Potassium [Moles/volume] in Serum or Plasma 4.3 meq/L 3.5-5.1 [facility] ([facility]) Calcium [Mass/volume] in Serum or Plasma 8.2 mg/dL 8.5-10.1 [facility] ([facility]) NOTE: RESULT VERIFIED. Alkaline phosphatase isoenzyme [Units/volume] in Serum or Pl asma 115 mg/dL 46-116 [facility] ([facility]) Total Bilirubin 0.8 mg/dL 0.2-1.0 [facility] ([facility]) Aspartate aminotransferase [Enzymatic activity/volume] in Serum or Plasma 32 U/L 15-37 [facility] ([facility] ) Albumin [Mass/volume] in Serum or Plasma 3.4 g/dL 3.4-5.0 [facility] ([facility]) Alanine aminotransferase [Enzymatic activity/volume] in Seru m or Plasma 47 U/L 12-78 [facility] ([facility]) A/G Ratio 1.10 CALC 1.00-1.90 [facility] ([facility]) Proteinase 3 Ab [Units/volume] in Serum 6.5 g/dL 6.4-8.2 [facility] ([facility]) Glomerular filtration rate/1.73 sq M pre dicted among non-blacks [Volume Rate/Area] in Serum or Plasma by Creatinine-based formula (MDRD) 37 mL/min [facility] ([facility]) Glomerular filtration rate/1.73 sq M pre dicted among blacks [Volume Rate/Area] in Serum or Plasma by Creatinine-based formula (MDRD) 44 mL/min [facility] ([facility]) <content>CHRONIC KIDNEY DISEASE STAGING PER NKF</content>
<content></content>
<content>STAGE I & II GFR >= 60 NORMAL TO MILDLY DECREASED</content>
<content>STAGE III GFR 30-59 MODERATELY DECREASED</content>
<content>STAGE IV GFR 15-29 SEVERELY DECREASED</content>
<content>STAGE V GFR <15 VERY LITTLE GFR LEFT</content>
<content>ESRD GFR <15 ON FIXED INCOME TRADING VICE PRESIDENT</content>
<content></content> ID Date Data Source [id number] 02/25/2020 07:34:00 AM EDT [facility] ([facility]) Name Value Range Interpretation Code Description Data Elizabeth rce(s) Supporting Document(s) Alkaline phosphatase isoenzyme [Units/volume] in Serum or Pl asma 132 mg/dL 46-116 [facility] ([facility]) Total Bilirubin 0.8 mg/dL 0.2-1.0 [facility] ([facility]) Alanine aminotransferase [Enzymatic activity/volume] in Seru m or Plasma 107 U/L 12-78 [facility] ([facility]) NOTE: RESULT VERIFIED. Aspartate aminotransferase [Enzymatic activity/volume] in Serum or Plasma 63 U/L 15-37 [facility] ([facility] ) Albumin [Mass/volume] in Serum or Plasma 3.9 g/dL 3.4-5.0 [facility] ([facility]) A/G Ratio 1.26 CALC 1.00-1.90 [facility] ([facility] [facility]) Direct Bilirubin 0.2 mg/dL 0.0-0.2 [facility] ([facility]) Proteinase 3 Ab [Units/volume] in Serum 7.0 g/dL 6.4-8.2 [facility] ([facility]) ID Date Data Source [id number] 02/25/2020 07:34:00 AM EDT [facility] ([facility]) Name Value Range Interpretation Code Description Data Elizabeth rce(s) Supporting Document(s) Glucose [Mass/volume] in Serum or Plasma 128 mg/dL 74-99 [facility] ([facility]) 100-125 mg/dL PRE-DIABETES/FASTING >126 mg/dL DIABETES/FASTING Urea nitrogen [Mass/volume] in Serum or Plasma 17 mg/dL 7-18 [facility] ([facility]) Creatinine 1.4 mg/dL 0.6-1.3 [facility] ([facility] [place] [facility] Sodium [Moles/volume] in Serum or Plasma 143 meq/L 136-145 [facility] [facility] Potassium [Moles/volume] in Serum or Plasma 4.1 meq/L 3.5-5.1 [facility] [facility] Carbon dioxide, total [Moles/volume] in Serum or Plasma 27 meq/L 21 -32 [facility] ([facility]) Chloride [Moles/volume] in Serum or Plasma 105 meq/L 98-107 [facility] Calcium [Mass/volume] in Serum or Plasma 9.2 mg/dL 8.5-10.1 [facility] ([facility]) Glomerular filtration rate/1.73 sq M pre dicted among non-blacks [Volume Rate/Area] in Serum or Plasma by Creatinine-based formula (MDRD) 37 mL/min [facility] [facility] Glomerular filtration rate/1.73 sq M pre dicted among blacks [Volume Rate/Area] in Serum or Plasma by Creatinine-based formula (MDRD) 44 mL/min [facility] ([facility]) <content>CHRONIC KIDNEY DISEASE STAGING PER NKF</content>
<content></content>
<content>STAGE I & II GFR >= 60 NORMAL TO MILDLY DECREASED</content>
<content>STAGE III GFR 30-59 MODERATELY DECREASED</content>
<content>STAGE IV GFR 15-29 SEVERELY DECREASED</content>
<content>STAGE V GFR <15 VERY LITTLE GFR LEFT</content>
<content>ESRD GFR <15 ON FIXED INCOME TRADING VICE PRESIDENT</content>
<content></content> ID Date Data Source [id number] 02/25/2020 07:34:00 AM EDT [facility] ([facility] ) Name Value Range Interpretation Code Description Data Elizabeth rce(s) Supporting Document(s) Alkaline phosphatase isoenzyme [Units/volume] in Serum or Pl asma 132 mg/dL 46-116 [facility] ([facility] Aspartate aminotransferase [Enzymatic activity/volume] in Serum or Plasma 63 U/L 15-37 [facility] ([facility] Total Bilirubin 0.8 mg/dL 0.2-1.0 [facility] ([facility] ) Albumin [Mass/volume] in Serum or Plasma 3.9 g/dL 3.4-5.0 [facility] ([facility] ) Alanine aminotransferase [Enzymatic activity/volume] in Seru m or Plasma 107 U/L 12-78 [facility] ([facility] ) NOTE: RESULT VERIFIED. Proteinase 3 Ab [Units/volume] in Serum 7.0 g/dL 6.4-8.2 [facility] ([facility]) Laboratory test finding (navigational concept) 0.2 mg/dL 0.0-0.2 [facility] ([facility]) Albumin/Globulin [Mass Ratio] in Serum or Plasma 1.26 CALC 1.00-1.90 [facility] ([facility]) ID Date Data Source [id number] 02/25/2020 07:34:00 AM EDT [facility] ([facility]) Name Value Range Interpretation Code Description Data Elizabeth rce(s) Supporting Document(s) Glucose [Mass/volume] in Serum or Plasma 128 mg/dL 74-99 [facility] ([facility]) 100-125 mg/dL PRE-DIABETES/FASTING >126 mg/dL DIABETES/FASTING Urea nitrogen [Mass/volume] in Serum or Plasma 17 mg/dL 7-18 [facility] ([facility]) Creatinine [Mass/volume] in Serum or Plasma 1.4 mg/dL 0.6-1.3 [facility] ([facility]) Sodium [Moles/volume] in Serum or Plasma 143 meq/L 136-145 [facility] ([facility]) Chloride [Moles/volume] in Serum or Plasma 105 meq/L 98-107 [facility] ([facility]) Carbon dioxide, total [Moles/volume] in Serum or Plasma 27 meq/L 21 -32 [facility] ([facility]) Potassium [Moles/volume] in Serum or Plasma 4.1 meq/L 3.5-5.1 [facility] ([facility]) Calcium [Mass/volume] in Serum or Plasma 9.2 mg/dL 8.5-10.1 [facility] ([facility]) Glomerular filtration rate/1.73 sq M pre dicted among blacks [Volume Rate/Area] in Serum or Plasma by Creatinine-based formula (MDRD) 44 mL/min [facility] ([facility]) <content>CHRONIC KIDNEY DISEASE STAGING PER NKF</content>
<content></content>
<content>STAGE I & II GFR >= 60 NORMAL TO MILDLY DECREASED</content>
<content>STAGE III GFR 30-59 MODERATELY DECREASED</content>
<content>STAGE IV GFR 15-29 SEVERELY DECREASED</content>
<content>STAGE V GFR <15 VERY LITTLE GFR LEFT</content>
<content>ESRD GFR <15 ON FIXED INCOME TRADING VICE PRESIDENT</content>
<content></content>
<content></content> Glomerular filtration rate/1.73 sq M pre dicted among non-blacks [Volume Rate/Area] in Serum or Plasma by Creatinine-based formula (MDRD) 37 mL/min [facility] ID Date Data Source [id number] 02/23/2020 08:15:00 AM EDT [facility] Name Value Range Interpretation Code Description Data Elizabeth rce(s) Supporting Document(s) SARS coronavirus 2 RNA [facility] This lab was ordered by [facility] and reported by [facility]. ID Date Data Source [id number] 02/20/2020 08:55:[address] [facility] Name Value Range Interpretation Code Description Data Elizabeth rce(s) Supporting Document(s) Hepatitis C Virus Rosi Index 0.1 INDEX [facility] ([facility]) Negative Not infected with HCV, unless recent infection is suspected or other evidence exists to indicate HCV infection. Hepatitis B Surface Antigen Laboratory test result [facility] ([facility]) Hepatitis B Core Antibody Igm Laboratory test result [facility] ([facility]) Hepatitis A Antibody [facility] ID Date Data Source [id number] 02/20/2020 08:55:[address] [facility] Name Value Range Interpretation Code Description Data Elizabeth rce(s) Supporting Document(s) Erythrocyte sedimentation rate by Westergren method 18 mm/hr 0-30 [facility] ([facility]) ID Date Data Source [id number] 02/20/2020 08:55:[address] [facility] Name Value Range Interpretation Code Description Data Elizabeth rce(s) Supporting Document(s) White Blood Count 8.7 10 4.0-10.0 [facility] ([facility]) Red Blood Count 5.04 10 4.00-5.40 [facility] ([facility]) Hematocrit 44.4 % 36.0-47.0 [facility] ([facility]) Hemoglobin 14.4 g/dL 12.0-15.5 [facility] ([facility]) Mean Corpuscular Volume 88.1 fl 80.0-96.0 [facility] ([facility]) Mean Corpuscular Hemoglobin 28.6 pg 27.0-33.0 ME DENT ([facility]) Mean Corpuscular HGB Conc 32.4 g/dL 32.0-36.5 MED[facility] NT ([facility]) Nucleated Red Blood Cell % 0.0 % 0-0 [facility] ([facility]) Platelet Count, Automated 304 10 150-450 [facility] ([facility]) Red Cell Distribution Width 14.0 % 11.5-14.5 [facility] ([facility]) ID Date Data Source [id number] 02/20/2020 08:55:00 AM EDT [facility] ([facility]) Name Value Range Interpretation Code Description Data [facility](s) Supporting Document(s) Blood Urea Nitrogen 15 mg/dL 7-18 [facility] ([facility]) Glucose, Fasting 108 mg/dL 70-100 [facility] ([facility]) Glomerular Filtration Rate 37.2 [facility] ([facility]) <content>Units are mL/min/1.73 m2</content>
<content></content>
<content>Chronic Kidney Disease Staging per NKF:</content>
<content></content>
<content>Stage I & II GFR >=60 Normal to Mildly Decreased</content>
<content>Stage III GFR 30-59 Moderately Decreased</content>
<content>Stage IV GFR 15-29 Severely Decreased</content>
<content>Stage V GFR <15 Very Little GFR Left</content>
<content>ESRD GFR <15 on FIXED INCOME TRADING VICE PRESIDENT</content>
<content></content> Creatinine For GFR 1.46 mg/dL 0.55-1.30 [facility] ([facility]) Potassium Serum 3.8 meq/L 3.5-5.1 [facility] ([facility]) Chloride Level 108 meq/L 98-107 [facility] ([facility]) Sodium Level 141 meq/L 136-145 [facility] ([facility]) Anion Gap 9 meq/L 8-16 [facility] ([facility] Carbon Dioxide Level 24 meq/L 21-32 [facility] ([facility]) Calcium Level 9.7 mg/dL 8.8-10.2 [facility] ([facility]) Ast/Sgot 66 U/L 7-37 [facility] ([facility] [place] [facility]) Alt/SGPT 100 U/L 12-78 [facility] ([facility]) Alkaline Phosphatase 132 U/L 45-117 [facility] ([facility]) Bilirubin,Total 0.6 mg/dL 0.2-1.0 [facility] ([facility]) Total Protein 7.0 GM/DL 6.4-8.2 [facility] ([facility]) Albumin 3.8 GM/DL 3.2-5.2 [facility] ([facility]) Albumin/Globulin Ratio 1.2 1.2-2.2 [facility] ([facility]) ID Date Data Source [id number] 02/20/2020 08:55:00 AM EDT [facility] ([facility]) Name Value Range Interpretation Code Description Data Elizabeth rce(s) Supporting Document(s) Prothrombin Time 18.9 s 11.8-14.0 [facility] ([facility]) Inr 1.61 [facility] ([facility]) THERAPUTIC HUMAN INR VALUES INDICATIONS NORMAL RANGES PROPHYLAXIS/TREATMENT OF: VENOUS THROMBOSIS 2.0-3.0 PULMONARY EMBOLISM 2.0-3.0 PREVENTION OF SYSTEMIC EMBOLISM FROM: TISSUE HEART VALVES 2.0-3.0 ACUTE MYOCARDIAL INFARCTION 2.0-3.0 VALVULAR HEART DISEASE 2.0-3.0 ATRIAL FIBRILLATION 2.0-3.0 MECHANICAL VALVES(HIGH RISK) 2.5-3.5 RECURRENT MYOCARDIAL INFARCTION 2.5-3.5 ID Date Data Source [id number] 02/20/2020 08:55:00 AM EDT [facility] ([facility]) Name Value Range Interpretation Code Description Data Elizabeth rce(s) Supporting Document(s) Erythrocyte sedimentation rate by Westergren method 18 mm/hr 0-30 [facility] ([facility]) ID Date Data Source [id number] 02/20/2020 08:55:00 AM EDT [facility] ([facility]) Name Value Range Interpretation Code Description Data Elizabeth rce(s) Supporting Document(s) Red Blood Count 5.04 10 4.00-5.40 [facility] ([facility]) White Blood Count 8.7 10 4.0-10.0 [facility] ([facility]) Mean Corpuscular Volume 88.1 fl 80.0-96.0 M EDENT ([facility]) Hemoglobin 14.4 g/dL 12.0-15.5 [facility] ([facility]) Hematocrit 44.4 % 36.0-47.0 [facility] ([facility]) Red Cell Distribution Width 14.0 % 11.5-14.5 [facility] ([facility]) Mean Corpuscular Hemoglobin 28.6 pg 27.0-33.0 [facility] ([facility]) Mean Corpuscular HGB Conc 32.4 g/dL 32.0-36.5 [facility] ([facility] Platelet Count, Automated 304 10 150-450 [facility] ([facility]) Nucleated Red Blood Cell % 0.0 % 0-0 [facility] ([facility]) ID Date Data Source [id number] 02/20/2020 08:55:00 AM EDT [facility] ([facility]) Name Value Range Interpretation Code Description Data Elizabeth rce(s) Supporting Document(s) Glucose, Fasting 108 mg/dL 70-100 [facility] ([facility]) Blood Urea Nitrogen 15 mg/dL 7-18 [facility] ([facility]) Sodium Level 141 meq/L 136-145 [facility] ([facility]) Creatinine For GFR 1.46 mg/dL 0.55-1.30 [facility] ([facility]) Glomerular Filtration Rate 37.2 [facility] ([facility]) <content>Units are mL/min/1.73 m2</content>
<content></content>
<content>Chronic Kidney Disease Staging per NKF:</content>
<content></content>
<content>Stage I & II GFR >=60 Normal to Mildly Decreased</content>
<content>Stage III GFR 30-59 Moderately Decreased</content>
<content>Stage IV GFR 15-29 Severely Decreased</content>
<content>Stage V GFR <15 Very Little GFR Left</content>
<content>ESRD GFR <15 on FIXED INCOME TRADING VICE PRESIDENT</content>
<content></content> Chloride Level 108 meq/L 98-107 [facility] ([facility]) Carbon Dioxide Level 24 meq/L 21-32 [facility] ([facility]) Potassium Serum 3.8 meq/L 3.5-5.1 [facility] ([facility]) Anion Gap 9 meq/L 8-16 [facility] ([facility]) Ast/Sgot 66 U/L 7-37 [facility] ([facility]) Calcium Level 9.7 mg/dL 8.8-10.2 [facility] ([facility]) Bilirubin,Total 0.6 mg/dL 0.2-1.0 [facility] ([facility]) Alt/SGPT 100 U/L 12-78 [facility] ([facility]) Alkaline Phosphatase 132 U/L 45-117 [facility] ([facility]) Albumin/Globulin Ratio 1.2 1.2-2.2 [facility] ([facility]) Albumin 3.8 GM/DL 3.2-5.2 [facility] ([facility]) Total Protein 7.0 GM/DL 6.4-8.2 [facility] ([facility]) ID Date Data Source [id number] 02/20/2020 08:55:00 AM EDT [facility] ([facility]) Name Value Range Interpretation Code Description Data Elizabeth rce(s) Supporting Document(s) Prothrombin Time 18.9 s 11.8-14.0 [facility] ([facility]) Inr 1.61 [facility] ([facility]) THERAPUTIC HUMAN INR VALUES INDICATIONS NORMAL RANGES PROPHYLAXIS/TREATMENT OF: VENOUS THROMBOSIS 2.0-3.0 PULMONARY EMBOLISM 2.0-3.0 PREVENTION OF SYSTEMIC EMBOLISM FROM: TISSUE HEART VALVES 2.0-3.0 ACUTE MYOCARDIAL INFARCTION 2.0-3.0 VALVULAR HEART DISEASE 2.0-3.0 ATRIAL FIBRILLATION 2.0-3.0 MECHANICAL VALVES(HIGH RISK) 2.5-3.5 RECURRENT MYOCARDIAL INFARCTION 2.5-3.5 ID Date Data Source [id number] 02/20/2020 08:13:00 AM EDT [facility] ([facility]) Name Value Range Interpretation Code Description Data Elizabeth rce(s) Supporting Document(s) Glucose [Mass/volume] in Serum or Plasma 106 mg/dL 74-99 [facility] ([facility]) 100-125 mg/dL PRE-DIABETES/FASTING >126 mg/dL DIABETES/FASTING Urea nitrogen [Mass/volume] in Serum or Plasma 14 mg/dL 7-18 [facility] ([facility]) Sodium [Moles/volume] in Serum or Plasma 144 meq/L 136-145 [facility] ([facility]) Creatinine 1.5 mg/dL 0.6-1.3 [facility] ([facility]) Potassium [Moles/volume] in Serum or Plasma 4.2 meq/L 3.5-5.1 [facility] ([facility]) Carbon dioxide, total [Moles/volume] in Serum or Plasma 24 meq/L 21 -32 [facility] ([facility]) Chloride [Moles/volume] in Serum or Plasma 106 meq/L 98-107 [facility] ([facility]) Calcium [Mass/volume] in Serum or Plasma 10.0 mg/dL 8.5-10.1 [facility] ([facility]) Glomerular filtration rate/1.73 sq M pre dicted among non-blacks [Volume Rate/Area] in Serum or Plasma by Creatinine-based formula (MDRD) 34 mL/min [facility] ([facility]) Glomerular filtration rate/1.73 sq M pre dicted among blacks [Volume Rate/Area] in Serum or Plasma by Creatinine-based formula (MDRD) 41 mL/min [facility] <content>CHRONIC KIDNEY DISEASE STAGING PER NKF</content>
<content></content>
<content>STAGE I & II GFR >= 60 NORMAL TO MILDLY DECREASED</content>
<content>STAGE III GFR 30-59 MODERATELY DECREASED</content>
<content>STAGE IV GFR 15-29 SEVERELY DECREASED</content>
<content>STAGE V GFR <15 VERY LITTLE GFR LEFT</content>
<content>ESRD GFR <15 ON FIXED INCOME TRADING VICE PRESIDENT</content>
<content></content> ID Date Data Source [id number] 02/11/2020 11:08:00 AM EDT [facility] Name Value Range Interpretation Code Description Data Elizabeth rce(s) Supporting Document(s) Hemoglobin A1c/Hemoglobin.total in Blood 5.9 g/dL 4.8-5.6 [facility] ([facility] [facility] Lab Result Notes: Pre-Diabetes 5.7 - 6.4 % Diabetes = or > 6.5% Glucose mean value [Mass/volume] in Blood Estimated fr om glycated hemoglobin 123 mg/dL 60-110 [facility] ([facility] ) ID Date Data Source [id number] 02/11/2020 11:08:[address] [facility] ([facility] Name Value Range Interpretation Code Description Data Elizabeth rce(s) Supporting Document(s) Glucose [Mass/volume] in Serum or Plasma 96 mg/dL 74-99 [facility] ([facility]) 100-125 mg/dL PRE-DIABETES/FASTING >126 mg/dL DIABETES/FASTING Sodium [Moles/volume] in Serum or Plasma 142 meq/L 136-145 [facility] ([facility]) Urea nitrogen [Mass/volume] in Serum or Plasma 17 mg/dL 7-18 [facility] ([facility]) Creatinine 1.6 mg/dL 0.6-1.3 [facility] ([facility]) Potassium [Moles/volume] in Serum or Plasma 3.9 meq/L 3.5-5.1 [facility] ([facility]) Chloride [Moles/volume] in Serum or Plasma 103 meq/L 98-107 [facility] ([facility]) Carbon dioxide, total [Moles/volume] in Serum or Plasma 24 meq/L 21 -32 [facility] ([facility]) Glomerular filtration rate/1.73 sq M pre dicted among non-blacks [Volume Rate/Area] in Serum or Plasma by Creatinine-based formula (MDRD) 31 mL/min [facility] ([facility]) Glomerular filtration rate/1.73 sq M pre dicted among blacks [Volume Rate/Area] in Serum or Plasma by Creatinine-based formula (MDRD) 38 mL/min [facility] ([facility]) <content>CHRONIC KIDNEY DISEASE STAGING PER NKF</content>
<content></content>
<content>STAGE I & II GFR >= 60 NORMAL TO MILDLY DECREASED</content>
<content>STAGE III GFR 30-59 MODERATELY DECREASED</content>
<content>STAGE IV GFR 15-29 SEVERELY DECREASED</content>
<content>STAGE V GFR <15 VERY LITTLE GFR LEFT</content>
<content>ESRD GFR <15 ON FIXED INCOME TRADING VICE PRESIDENT</content>
<content></content> Calcium [Mass/volume] in Serum or Plasma 7.8 mg/dL 8.5-10.1 [facility] NOTE: RESULT VERIFIED. ID Date Data Source [id number] 02/11/2020 11:08:00 AM EDT [facility] ([facility]) Name Value Range Interpretation Code Description Data Elizabeth rce(s) Supporting Document(s) Erythrocytes [#/volume] in Blood by Automated count 4.89 x10*6/UL 4.2 0-6.30 [facility] ([facility]) Leukocytes [#/volume] in Blood by Automated count 8.7 x10*3/UL 4.1-10 .9 [facility] Hematocrit [Volume Fraction] of Blood by Automated count 41.6 % 3 7.0-51.0 [facility] MCV 85.0 fL 80.0-97.0 [facility] ([facility]) Hemoglobin [Mass/volume] in Blood 13.9 g/dL 12.0-18.0 [facility] ([facility] [place] [facility] Erythrocyte distribution width [Ratio] by Automated count 13.3 % 11.6-13.7 [facility] ([facility]) MCH 28.5 pg 26.0-32.0 [facility] ([facility]) MCHC 33.5 g/dL 31.0-38.0 [facility] ([facility]) MPV 8.1 FL 7.8-11.0 [facility] ([facility]) Lymph % 17.7 % 10.0-58.5 [facility] ([facility]) Platelets [#/volume] in Blood by Automated count 339 x10*3/UL 140-440 [facility] ([facility]) Mid % 5.6 % 1.7-9.3 [facility] ([facility]) Neut % 76.7 % 37.0-92.0 [facility] ([facility]) Lymph # 1.5 x10*3/UL 0.6-4.1 [facility] ([facility]) Mid # 0.5 x10*3/UL 0.1-0.6 [facility] ([facility]) Neut # 6.7 x10*3/UL 2.0-7.8 [facility] ([facility]) ID Date Data Source [id number] 01/16/2020 10:39:00 AM EDT [facility] Name Value Range Interpretation Code Description Data Elizabeth rce(s) Supporting Document(s) Laboratory test finding (navigational concept) Laboratory test result [facility] ([facility]) ID Date Data Source [id number] 01/08/2020 10:52:00 AM EDT [facility] ([facility]) Name Value Range Interpretation Code Description Data Elizabeth rce(s) Supporting Document(s) Glucose [Mass/volume] in Serum or Plasma 130 mg/dL 74-99 [facility] ([facility]) 100-125 mg/dL PRE-DIABETES/FASTING >126 mg/dL DIABETES/FASTING Creatinine 1.1 mg/dL 0.6-1.3 [facility] ([facility] [place] [facility]) Sodium [Moles/volume] in Serum or Plasma 144 meq/L 136-145 [facility] ([facility]) Urea nitrogen [Mass/volume] in Serum or Plasma 15 mg/dL 7-18 [facility] ([facility] [place] [facility] Carbon dioxide, total [Moles/volume] in Serum or Plasma 27 meq/L 21 -32 [facility] ([facility]) Potassium [Moles/volume] in Serum or Plasma 5.2 meq/L 3.5-5.1 [facility] ([facility]) NOTE: RESULT VERIFIED. NO VISIBLE HEMOLYSIS. Chloride [Moles/volume] in Serum or Plasma 106 meq/L 98-107 [facility] ([facility] [place] [facility] Glomerular filtration rate/1.73 sq M pre dicted among blacks [Volume Rate/Area] in Serum or Plasma by Creatinine-based formula (MDRD) 59 mL/min [facility] ([facility] [place] [facility]) <content>CHRONIC KIDNEY DISEASE STAGING PER NKF</content>
<content></content>
<content>STAGE I & II GFR >= 60 NORMAL TO MILDLY DECREASED</content>
<content>STAGE III GFR 30-59 MODERATELY DECREASED</content>
<content>STAGE IV GFR 15-29 SEVERELY DECREASED</content>
<content>STAGE V GFR <15 VERY LITTLE GFR LEFT</content>
<content>ESRD GFR <15 ON FIXED INCOME TRADING VICE PRESIDENT</content>
<content></content> Glomerular filtration rate/1.73 sq M pre dicted among non-blacks [Volume Rate/Area] in Serum or Plasma by Creatinine-based formula (MDRD) 48 mL/min [facility] ([facility] [place] [facility]) Calcium [Mass/volume] in Serum or Plasma 9.4 mg/dL 8.5-10.1 [facility] ([facility] [place] [facility] ID Date Data Source [id number] 01/01/2020 07:43:00 AM EDT [facility] ([facility]) Name Value Range Interpretation Code Description Data Elizabeth rce(s) Supporting Document(s) Calcidiol [Mass/volume] in Serum or Plasma 44.6 24.0-80.0 [facility] ([facility]) This test was performed using [employer] I P Vitamin D immunoassay kit. Values obtained with different assay methods should not be used interchangeably. ID Date Data Source [id number] 01/01/2020 07:42:00 AM EDT [facility] ([facility]) Name Value Range Interpretation Code Description Data Elizabeth rce(s) Supporting Document(s) Glucose [Mass/volume] in Serum or Plasma 153 mg/dL 74-99 [facility] ([facility]) 100-125 mg/dL PRE-DIABETES/FASTING >126 mg/dL DIABETES/FASTING Urea nitrogen [Mass/volume] in Serum or Plasma 17 mg/dL 7-18 [facility] ([facility]) Sodium [Moles/volume] in Serum or Plasma 144 meq/L 136-145 [facility] ([facility] [place] [facility] Creatinine 1.2 mg/dL 0.6-1.3 [facility] ([facility]) Chloride [Moles/volume] in Serum or Plasma 105 meq/L 98-107 [facility] ([facility]) Carbon dioxide, total [Moles/volume] in Serum or Plasma 28 meq/L 21 -32 [facility] ([facility]) Potassium [Moles/volume] in Serum or Plasma 4.2 meq/L 3.5-5.1 [facility] ([facility] [place] [facility] Glomerular filtration rate/1.73 sq M pre dicted among blacks [Volume Rate/Area] in Serum or Plasma by Creatinine-based formula (MDRD) 53 mL/min [facility] ([facility] [place] [facility]) <content>CHRONIC KIDNEY DISEASE STAGING PER NKF</content>
<content></content>
<content>STAGE I & II GFR >= 60 NORMAL TO MILDLY DECREASED</content>
<content>STAGE III GFR 30-59 MODERATELY DECREASED</content>
<content>STAGE IV GFR 15-29 SEVERELY DECREASED</content>
<content>STAGE V GFR <15 VERY LITTLE GFR LEFT</content>
<content>ESRD GFR <15 ON FIXED INCOME TRADING VICE PRESIDENT</content>
<content></content> Calcium [Mass/volume] in Serum or Plasma 9.5 mg/dL 8.5-10.1 [facility] ([facility] [place] [facility]) Glomerular filtration rate/1.73 sq M pre dicted among non-blacks [Volume Rate/Area] in Serum or Plasma by Creatinine-based formula (MDRD) 44 mL/min [facility] ([facility] [place] [facility] ID Date Data Source [id number] 01/01/2020 07:42:00 AM EDT [facility] ([facility]) Name Value Range Interpretation Code Description Data Elizabeth rce(s) Supporting Document(s) Leukocytes [#/volume] in Blood by Automated count 7.3 x10*3/UL 4.1-10 .9 [facility] ([facility] [place] [facility] MCV 83.8 fL 80.0-97.0 [facility] ([facility]) Hematocrit [Volume Fraction] of Blood by Automated count 44.4 % 3 7.0-51.0 [facility] ([facility] [place] [facility]) Hemoglobin [Mass/volume] in Blood 14.9 g/dL 12.0-18.0 [facility] ([facility]) Erythrocytes [#/volume] in Blood by Automated count 5.29 x10*6/UL 4.2 0-6.30 [facility] ([facility] [place] [facility]) MCHC 33.6 g/dL 31.0-38.0 [facility] ([facility]) MCH 28.1 pg 26.0-32.0 [facility] ([facility]) Erythrocyte distribution width [Ratio] by Automated count 13.3 % 11.6-13.7 [facility] ([facility] [place] [facility] MPV 8.0 FL 7.8-11.0 [facility] ([facility]) Platelets [#/volume] in Blood by Automated count 350 x10*3/UL 140-440 [facility] ([facility] [place] [facility] Lymph % 18.6 % 10.0-58.5 [facility] ([facility]) Lymph # 1.3 x10*3/UL 0.6-4.1 [facility] ([facility] [place] [facility] Mid % 4.6 % 1.7-9.3 [facility] ([facility] [place] [facility] Neut % 76.8 % 37.0-92.0 [facility] [place] [facility]) Mid # 0.4 x10*3/UL 0.1-0.6 [facility] ([facility]) Neut # 5.6 x10*3/UL 2.0-7.8 [facility] ([facility]) ID Date Data Source [id number] 12/28/2019 08:55:00 AM EDT [facility] ([facility]) Name Value Range Interpretation Code Description Data Elizabeth rce(s) Supporting Document(s) Laboratory test finding (navigational concept) Laboratory test result [facility] ([facility]) ID Date Data Source [id number] 11/27/2019 12:00:00 AM EDT [facility] Tonja Cardenas MD Patient Name: SANTOSH [id number] [facility] Date of : Floor Date of Exam: 11/27/2019[place] Resendez [id number]#: Fax: [phone] EXAM: THORACIC SPINE (3 VIEW) [...] rce(s) Supporting Document(s) ID Date Data Source [id number] 11/19/2019 10:04:00 AM EDT [facility] ([facility]) Name Value Range Interpretation Code Description Data Elizabeth rce(s) Supporting Document(s) Glucose, Fasting 144 mg/dL 70-100 [facility] ([facility]) Glomerular Filtration Rate 47.5 [facility] ([facility]) <content>Units are mL/min/1.73 m2</content>
<content></content>
<content>Chronic Kidney Disease Staging per NKF:</content>
<content></content>
<content>Stage I & II GFR >=60 Normal to Mildly Decreased</content>
<content>Stage III GFR 30- 59 Moderately Decreased</content>
<content>Stage IV GFR 15-29 Severely Decreased</content>
<content>Stage V GFR <15 Very Little GFR Left</content>
<content>ESRD GFR <15 on FIXED INCOME TRADING VICE PRESIDENT</content>
<content></content> Creatinine For GFR 1.18 mg/dL 0.55-1.30 [facility] ([facility]) Blood Urea Nitrogen 21 mg/dL 7-18 [facility] ([facility]) Sodium Level 141 meq/L 136-145 [facility] ([facility]) Potassium Serum 3.6 meq/L 3.5-5.1 [facility] ([facility]) Chloride Level 108 meq/L 98-107 [facility] ([facility]) Carbon Dioxide Level 27 meq/L 21-32 [facility] Anion Gap 6 meq/L 8-16 [facility] ([place] [facility]) Calcium Level 9.0 mg/dL 8.8-10.2 [facility] ([place] [facility]) ID Date Data Source [id number] 11/19/2019 10:04:00 AM EDT [facility]) Name Value Range Interpretation Code Description Data Elizabeth rce(s) Supporting Document(s) CPK Creatine Phosphokinase 33 U/L 26-192 [facility] ([facility]) CK-MB Value Mass [facility] MB/CK Relative Index 3.03 [facility]) <content>DIAGNOSIS CRITERIA</content>
<content>MMB ng/ml Relative Index (RI)</content>
<content>NON-AMI < or = 5 N/A</content>
<content>HUIZAR ZONE > 5 < or = 4</content>
<content>AMI > 5 > 4</content>
<content></content> Troponin I Laboratory test result [facility] ([facility]) <content>Troponin I Reference Interval f or Siemens [place] LOCI:</content>
<content></content>
<content>99th Percentile= 0.00-0.045 ng/ml</content>
<content></content>
<content>Risk Stratification:</content>
<content><= 0.10 ng/ml Decreased Risk for Adverse Clinical</content>
<content>Events.</content>
<content>0.10-1.50 ng/ml Increased Risk for Adverse Clinical</content>
<content>Events. Evaluation of additional</content>
<content>criterion and/or repeat testing in 2-6</content>
<content>hours is suggested to rule out myocardial</content>
<content>damage.</content>
<content>>= 1.50 ng/ml Indicative of Myocardial Injury.</content>
<content></content> ID Date Data Source [id number] 11/19/2019 10:04:00 AM EDT [facility] Name Value Range Interpretation Code Description Data Elizabeth rce(s) Supporting Document(s) White Blood Count 8.4 10 4.0-10.0 [facility] ([facility]) Hemoglobin 14.3 g/dL 12.0-15.5 [facility] Red Blood Count 5.08 10 4.00-5.40 [facility] ([facility]) Hematocrit 44.8 % 36.0-47.0 [facility] Mean Corpuscular Hemoglobin 28.1 pg 27.0-33.0 ME [facility] ([facility]) Mean Corpuscular HGB Conc 31.9 g/dL 32.0-36.5 [facility] ([facility]) Mean Corpuscular Volume 88.2 fl 80.0-96.0 [facility] ([facility]) Platelet Count, Automated 299 10 150-450 [facility] ([facility]) Red Cell Distribution Width 13.7 % 11.5-14.5 ME [facility] ([facility]) Neutrophils % 69.6 % 36.0-66.0 [facility]) Lymph % 13.8 % 24.0-44.0 [facility]) Spencer % 7.6 % 0.0-5.0 [facility]) Eos % 7.2 % 0.0-3.0 [facility]) Baso % 1.4 % 0.0-1.0 [facility]) Immature Granulocyte % 0.4 % 0-3.0 [facility] ([facility]) Nucleated Red Blood Cell % 0.0 % 0-0 [facility] ([facility]) Spencer # 0.6 10 0.0-0.8 [facility]) Lymph # 1.2 10 1.5-5.0 [facility]) Neutrophils # 5.8 10 1.5-8.5 [facility] [facility]) Baso # 0.1 10 0.0-0.2 [facility]) Eos # 0.6 10 0.0-0.5 [facility] ([facility]) ID Date Data Source [id number] 11/07/2019 08:21:00 AM EDT [facility] Name Value Range Interpretation Code Description Data Elizabeth rce(s) Supporting Document(s) Hemoglobin A1c/Hemoglobin.total in Blood 5.7 g/dL 4.8-5.6 [facility] Lab Result Notes: Pre-Diabetes 5.7 - 6.4 % Diabetes = or > 6.5% Glucose mean value [Mass/volume] in Blood Estimated fr om glycated hemoglobin 117 mg/dL 60-110 [facility] ID Date Data Source [id number] 11/07/2019 08:21:00 AM EDT [facility] Name Value Range Interpretation Code Description Data Elizabeth rce(s) Supporting Document(s) Leukocytes [#/volume] in Blood by Automated count 9.5 x10*3/UL 4.1-10 .9 [facility] Erythrocytes [#/volume] in Blood by Automated count 5.44 x10*6/UL 4.2 0-6.30 [facility] Hemoglobin [Mass/volume] in Blood 15.1 g/dL 12.0-18.0 [facility] Hematocrit [Volume Fraction] of Blood by Automated count 45.1 % 3 7.0-51.0 [facility] ([facility]) MCV 82.9 fL 80.0-97.0 [facility] [facility]) MCHC 33.5 g/dL 31.0-38.0 [facility] ([facility]) MCH 27.8 pg 26.0-32.0 [facility] ([facility]) Platelets [#/volume] in Blood by Automated count 337 x10*3/UL 140-440 [facility] Erythrocyte distribution width [Ratio] by Automated count 13.2 % 11.6-13.7 [facility] ([facility]) MPV 8.4 FL 7.8-11.0 [facility] [facility]) Neut % 77.1 % 37.0-92.0 [facility] [facility] Mid % 4.6 % 1.7-9.3 [facility] [facility] Lymph % 18.3 % 10.0-58.5 [facility] [facility] Neut # 7.3 x10*3/UL 2.0-7.8 [facility] ([facility]) Lymph # 1.7 x10*3/UL 0.6-4.1 [facility] ([facility]) Mid # 0.5 x10*3/UL 0.1-0.6 [facility] ([facility]) ID Date Data Source [id number] 11/07/2019 08:21:00 AM EDT [facility] ([facility]) Name Value Range Interpretation Code Description Data Elizabeth rce(s) Supporting Document(s) Hemoglobin A1c/Hemoglobin.total in Blood <pending> [facility] ([facility]) ID Date Data Source [id number] 10/24/2019 09:34:00 AM EDT [facility] ([facility]) Name Value Range Interpretation Code Description Data Elizabeth rce(s) Supporting Document(s) Leukocytes [#/volume] in Blood by Automated count 8.6 x10*3/UL 4.1-10 .9 [facility] ([facility]) Erythrocytes [#/volume] in Blood by Automated count 4.87 x10*6/UL 4.2 0-6.30 [facility] ([facility]) Hemoglobin [Mass/volume] in Blood 13.6 g/dL 12.0-18.0 [facility] ([facility]) MCV 83.0 fL 80.0-97.0 [facility] [facility] Hematocrit [Volume Fraction] of Blood by Automated count 40.4 % 3 7.0-51.0 [facility] ([facility]) MCH 27.9 pg 26.0-32.0 [facility] [facility] MCHC 33.6 g/dL 31.0-38.0 [facility] [facility]) Erythrocyte distribution width [Ratio] by Automated count 12.7 % 11.6-13.7 [facility] ([facility]) Platelets [#/volume] in Blood by Automated count 362 x10*3/UL 140-440 [facility] ([facility]) MPV 7.9 FL 7.8-11.0 [facility] [facility]) Mid % 3.8 % 1.7-9.3 [facility] [facility]) Lymph % 14.9 % 10.0-58.5 [facility] ([facility]) Mid # 0.5 x10*3/UL 0.1-0.6 [facility] ([facility]) Neut % 81.3 % 37.0-92.0 [facility] ([facility]) Lymph # 1.2 x10*3/UL 0.6-4.1 [facility] ([facility]) Neut # 6.9 x10*3/UL 2.0-7.8 [facility] ([facility]) ID Date Data Source [id number] 10/18/2019 10:59:00 AM EST [facility] ([facility]) Name Value Range Interpretation Code Description Data Elizabeth rce(s) Supporting Document(s) C reactive protein [Mass/volume] in Serum or Plasma by High sensitivity method 3.36 mg/dL 0.00-0.30 [facility] ([facility] ) ID Date Data Source [id number] 10/18/2019 10:58:00 AM EST [facility] ([facility]) Name Value Range Interpretation Code Description Data Elizabeth rce(s) Supporting Document(s) Erythrocyte sedimentation rate by Westergren method 34 mm/hr 0-15 [facility] ([facility]) ID Date Data Source [id number] 10/18/2019 10:58:00 AM EST [facility] ([facility]) Name Value Range Interpretation Code Description Data Elizabeth rce(s) Supporting Document(s) Leukocytes [#/volume] in Blood by Automated count 9.3 x10*3/UL 4.1-10 .9 [facility] ([facility]) Erythrocytes [#/volume] in Blood by Automated count 4.75 x10*6/UL 4.2 0-6.30 [facility] ([facility]) MCV 83.6 fL 80.0-97.0 [facility] [facility]) Hematocrit [Volume Fraction] of Blood by Automated count 39.7 % 3 7.0-51.0 [facility] Hemoglobin [Mass/volume] in Blood 13.4 g/dL 12.0-18.0 [facility] ([facility]) MCH 28.3 pg 26.0-32.0 [facility] [facility]) MCHC 33.9 g/dL 31.0-38.0 [facility] ([facility]) Platelets [#/volume] in Blood by Automated count 279 x10*3/UL 140-440 [facility] Erythrocyte distribution width [Ratio] by Automated count 13.0 % 11.6-13.7 [facility] ([facility]) Lymph % 12.2 % 10.0-58.5 [facility] [facility]) Mid % 3.6 % 1.7-9.3 [facility] ([facility]) MPV 8.2 FL 7.8-11.0 [facility] ([facility]) Mid # 0.4 x10*3/UL 0.1-0.6 [facility] ([facility]) Neut % 84.2 % 37.0-92.0 [facility] ([facility]) Lymph # 1.1 x10*3/UL 0.6-4.1 [facility] ([facility]) Neut # 7.8 x10*3/UL 2.0-7.8 [facility] ([facility]) ID Date Data Source [id number] 10/17/2019 12:21:00 PM EST [facility] ([facility]) Name Value Range Interpretation Code Description Data Elizabeth rce(s) Supporting Document(s) C reactive protein [Mass/volume] in Serum or Plasma by High sensitivity method 3.02 mg/dL 0.00-0.30 [facility] ([facility] ) Fibrin D-dimer FEU [Mass/volume] in Platelet poor plasma 3962.33 ng/m L [facility] ([facility]) ID Date Data Source [id number] 10/17/2019 12:20:00 PM EST [facility] ([facility]) Name Value Range Interpretation Code Description Data Elizabeth rce(s) Supporting Document(s) Erythrocyte sedimentation rate by Westergren method 32 mm/hr 0-15 [facility] ([facility]) ID Date Data Source [id number] 10/17/2019 12:20:00 PM EST [facility] ([facility]) Name Value Range Interpretation Code Description Data Elizabeth rce(s) Supporting Document(s) Hemoglobin [Mass/volume] in Blood 14.2 g/dL 12.0-18.0 [facility] ([facility]) Erythrocytes [#/volume] in Blood by Automated count 5.02 x10*6/UL 4.2 0-6.30 [facility] ([facility]) Leukocytes [#/volume] in Blood by Automated count 13.9 x10*3/UL 4.1-1 0.9 [facility] ([facility]) NOTE: RESULT VERIFIED. Hematocrit [Volume Fraction] of Blood by Automated count 42.1 % 3 7.0-51.0 [facility] ([facility]) MCV 83.8 fL 80.0-97.0 [facility] ([facility]) MCH 28.3 pg 26.0-32.0 [facility] ([facility]) MCHC 33.7 g/dL 31.0-38.0 [facility] ([facility]) Platelets [#/volume] in Blood by Automated count 308 x10*3/UL 140-440 [facility] ([facility]) Lymphocytes/100 leukocytes in Blood by Automated count 10.2 % 10. 0-58.5 [facility] ([facility]) Platelet mean volume [Entitic volume] in Blood by Hebert 8.5 FL 7.8-11.0 [facility] ([facility]) Erythrocyte distribution width [Ratio] by Automated count 12.9 % 11.6-13.7 [facility] ([facility]) Mid # 0.4 x10*3/UL 0.1-0.6 [facility] ([facility]) Mid % 2.8 % 1.7-9.3 [facility] ([facility] ) Lymph # 1.4 x10*3/UL 0.6-4.1 [facility] ([facility]) Neut % 87.0 % 37.0-92.0 [facility] ([facility] ) Neutrophils [#/volume] in Semen by Manual count 12.1 x10*3/UL 2.0-7.8 [facility] ([facility] ) ID Date Data Source [id number] 10/17/2019 12:20:00 PM EST [facility] ([facility]) Name Value Range Interpretation Code Description Data Elizabeth rce(s) Supporting Document(s) Leukocytes [#/volume] in Blood by Automated count 13.9 x10*3/UL 4.1-1 0.9 [facility] ([facility]) NOTE: RESULT VERIFIED. Erythrocytes [#/volume] in Blood by Automated count 5.02 x10*6/UL 4.2 0-6.30 [facility] ([facility]) Hematocrit [Volume Fraction] of Blood by Automated count 42.1 % 3 7.0-51.0 [facility] ([facility]) Hemoglobin [Mass/volume] in Blood 14.2 g/dL 12.0-18.0 [facility] ([facility]) MCV 83.8 fL 80.0-97.0 [facility] [facility]) MCH 28.3 pg 26.0-32.0 [facility] [facility] Erythrocyte distribution width [Ratio] by Automated count 12.9 % 11.6-13.7 [facility] ([facility]) MCHC 33.7 g/dL 31.0-38.0 [facility] [place] [facility] Platelets [#/volume] in Blood by Automated count 308 x10*3/UL 140-440 [facility] ([facility]) Lymph % 10.2 % 10.0-58.5 [facility] [place] [facility] Mid % 2.8 % 1.7-9.3 [facility] [place] [facility]) MPV 8.5 FL 7.8-11.0 [facility] [place] [facility]) Neut % 87.0 % 37.0-92.0 [facility] [facility] Mid # 0.4 x10*3/UL 0.1-0.6 [facility] ([facility]) Lymph # 1.4 x10*3/UL 0.6-4.1 [facility] ([facility]) Neut # 12.1 x10*3/UL 2.0-7.8 [facility] ([facility]) ID Date Data Source [id number] 10/17/2019 12:20:00 PM EST [facility] ([facility]) Name Value Range Interpretation Code Description Data Elizabeth rce(s) Supporting Document(s) Erythrocyte sedimentation rate by Westergren method 32 mm/hr 0-15 [facility] ([facility]) ID Date Data Source [id number] 10/16/2019 12:00:00 AM EST [facility] Veronica De Los Santos DO Patient Name: SANTOSH [id number] [facility] Date of : 1945[address] [facility]: [facility] [id number] Fax: [phone] EXAM: US EXTREMITY VEINS, UNILATERALCLINICAL [...] extremity femoral andpopliteal venous system.Accredited by the [employer] in Vascular PeripheralUltrasound.DIANE Kaplan/Alvarado you for referring SANTOSH COOK to our office. Electronically Signed - MENDEZ HUIZAR MD 10/17/19 10:57 Name Value Range Interpretation Code Description Data Elizabeth rce(s) Supporting Document(s) ID Date Data Source [id number] 09/27/2019 09:36:00 AM EST [facility] ([facility]) Name Value Range Interpretation Code Description Data Elizabeth rce(s) Supporting Document(s) Glucose, Fasting 106 mg/dL 70-100 [facility] ([facility]) Creatinine For GFR 1.15 mg/dL 0.55-1.30 [facility] ([facility]) Glomerular Filtration Rate 49.1 [facility] ([facility]) <content>Units are mL/min/1.73 m2</content>
<content></content>
<content>Chronic Kidney Disease Staging per NKF:</content>
<content></content>
<content>Stage I & II GFR >=60 Normal to Mildly Decreased</content>
<content>Stage III GFR 30- 59 Moderately Decreased</content>
<content>Stage IV GFR 15-29 Severely Decreased</content>
<content>Stage V GFR <15 Very Little GFR Left</content>
<content>ESRD GFR <15 on FIXED INCOME TRADING VICE PRESIDENT</content>
<content></content> Blood Urea Nitrogen 25 mg/dL 7-18 [facility] ([facility]) Sodium Level 144 meq/L 136-145 [facility] ([facility] Potassium Serum 4.4 meq/L 3.5-5.1 [facility] ([facility]) Chloride Level 108 meq/L 98-107 [facility] ([facility] Carbon Dioxide Level 28 meq/L 21-32 [facility] Anion Gap 8 meq/L 8-16 [facility] Alt/SGPT 26 U/L 12-78 [facility] ([facility] Ast/Sgot 13 U/L 7-37 [facility] ([facility]) Calcium Level 9.3 mg/dL 8.8-10.2 [facility] ([facility]) Alkaline Phosphatase 120 U/L 45-117 [facility]) Bilirubin,Total 0.6 mg/dL 0.2-1.0 [facility] ([facility]) Total Protein 6.9 GM/DL 6.4-8.2 [facility] ([facility]) Albumin 3.8 GM/DL 3.2-5.2 [facility] ([facility]) Albumin/Globulin Ratio 1.23 1.00-1.93 [facility] ([facility]) ID Date Data Source [id number] 09/27/2019 09:36:00 AM EST [facility] ([facility]) Name Value Range Interpretation Code Description Data Elizabeth rce(s) Supporting Document(s) Erythrocyte sedimentation rate by Westergren method 18 mm/hr 0-30 [facility] ([facility]) ID Date Data Source [id number] 09/27/2019 09:36:00 AM EST [facility] ([facility]) Name Value Range Interpretation Code Description Data Elizbaeth rce(s) Supporting Document(s) White Blood Count 8.2 10 4.0-10.0 [facility] ([facility]) Red Blood Count 5.09 10 4.00-5.40 [facility] ([facility]) Hemoglobin 14.5 g/dL 12.0-15.5 [facility] ([facility]) Hematocrit 45.4 % 36.0-47.0 [facility] ([facility]) Mean Corpuscular Hemoglobin 28.5 pg 27.0-33.0 [facility] ([facility]) Mean Corpuscular Volume 89.2 fl 80.0-96.0 M EDENT ([facility]) Platelet Count, Automated 305 10 150-450 [facility] ([facility]) Red Cell Distribution Width 13.3 % 11.5-14.5 [facility] ([facility]) Mean Corpuscular HGB Conc 31.9 g/dL 32.0-36.5 [facility] ([facility]) Nucleated Red Blood Cell % 0.0 % 0-0 [facility] ([facility]) ID Date Data Source [id number] 09/27/2019 09:36:00 AM EST [facility] ([facility]) Name Value Range Interpretation Code Description Data Elizabeth rce(s) Supporting Document(s) Prothrombin Time 12.8 s 11.8-14.0 [facility] ([facility]) Inr 0.99 [facility] ([facility]) THERAPUTIC HUMAN INR VALUES INDICATIONS NORMAL RANGES PROPHYLAXIS/TREATMENT OF: VENOUS THROMBOSIS 2.0-3.0 PULMONARY EMBOLISM 2.0-3.0 PREVENTION OF SYSTEMIC EMBOLISM FROM: TISSUE HEART VALVES 2.0-3.0 ACUTE MYOCARDIAL INFARCTION 2.0-3.0 VALVULAR HEART DISEASE 2.0-3.0 ATRIAL FIBRILLATION 2.0-3.0 MECHANICAL VALVES(HIGH RISK) 2.5-3.5 RECURRENT MYOCARDIAL INFARCTION 2.5-3.5 ID Date Data Source [id number] 09/27/2019 09:36:00 AM EST [facility] ([facility]) Name Value Range Interpretation Code Description Data Elizabeth rce(s) Supporting Document(s) Prothrombin Time 12.8 s 11.8-14.0 [facility] ([facility]) Inr 0.99 [facility] ([place] [facility] THERAPUTIC HUMAN INR VALUES INDICATIONS NORMAL RANGES PROPHYLAXIS/TREATMENT OF: VENOUS THROMBOSIS 2.0-3.0 PULMONARY EMBOLISM 2.0-3.0 PREVENTION OF SYSTEMIC EMBOLISM FROM: TISSUE HEART VALVES 2.0-3.0 ACUTE MYOCARDIAL INFARCTION 2.0-3.0 VALVULAR HEART DISEASE 2.0-3.0 ATRIAL FIBRILLATION 2.0-3.0 MECHANICAL VALVES(HIGH RISK) 2.5-3.5 RECURRENT MYOCARDIAL INFARCTION 2.5-3.5 ID Date Data Source [id number] 09/27/2019 09:36:00 AM EST [facility] ([facility]) Name Value Range Interpretation Code Description Data Elizabeth rce(s) Supporting Document(s) Creatinine For GFR 1.15 mg/dL 0.55-1.30 [facility] ([facility]) Glucose, Fasting 106 mg/dL 70-100 [facility] ([facility]) Glomerular Filtration Rate 49.1 [facility] ([facility]) <content>Units are mL/min/1.73 m2</content>
<content></content>
<content>Chronic Kidney Disease Staging per NKF:</content>
<content></content>
<content>Stage I & II GFR >=60 Normal to Mildly Decreased</content>
<content>Stage III GFR 30- 59 Moderately Decreased</content>
<content>Stage IV GFR 15-29 Severely Decreased</content>
<content>Stage V GFR <15 Very Little GFR Left</content>
<content>ESRD GFR <15 on FIXED INCOME TRADING VICE PRESIDENT</content>
<content></content> Blood Urea Nitrogen 25 mg/dL 7-18 [facility] ([facility]) Potassium Serum 4.4 meq/L 3.5-5.1 [facility] ([facility]) Chloride Level 108 meq/L 98-107 [facility] ([facility]) Sodium Level 144 meq/L 136-145 [facility] ([facility]) Anion Gap 8 meq/L 8-16 [facility] [facility]) Carbon Dioxide Level 28 meq/L 21-32 [facility] ([facility]) Calcium Level 9.3 mg/dL 8.8-10.2 [facility] ([facility]) Alkaline Phosphatase 120 U/L 45-117 [facility] ([facility]) Bilirubin,Total 0.6 mg/dL 0.2-1.0 [facility] ([facility]) Alt/SGPT 26 U/L 12-78 [facility] [facility] Ast/Sgot 13 U/L 7-37 [facility] ([place] [facility]) Albumin 3.8 GM/DL 3.2-5.2 [facility] ([place] [facility]) Total Protein 6.9 GM/DL 6.4-8.2 [facility] ([facility]) Albumin/Globulin Ratio 1.23 1.00-1.93 [facility] ([facility]) ID Date Data Source [id number] 09/27/2019 09:36:00 AM EST [facility] ([facility]) Name Value Range Interpretation Code Description Data Elizabeth rce(s) Supporting Document(s) Erythrocyte sedimentation rate by Westergren method 18 mm/hr 0-30 [facility] ([facility]) ID Date Data Source [id number] 09/27/2019 09:36:00 AM EST [facility] ([facility]) Name Value Range Interpretation Code Description Data Elizabeth rce(s) Supporting Document(s) White Blood Count 8.2 10 4.0-10.0 [facility] ([facility]) Hematocrit 45.4 % 36.0-47.0 [facility] ([facility]) Hemoglobin 14.5 g/dL 12.0-15.5 [facility] ([facility]) Red Blood Count 5.09 10 4.00-5.40 [facility] ([facility]) Mean Corpuscular Volume 89.2 fl 80.0-96.0 [facility] ([facility]) Mean Corpuscular HGB Conc 31.9 g/dL 32.0-36.5 MEDE NT ([facility]) Mean Corpuscular Hemoglobin 28.5 pg 27.0-33.0 ME [facility] ([facility]) Red Cell Distribution Width 13.3 % 11.5-14.5 [facility] ([facility]) Nucleated Red Blood Cell % 0.0 % 0-0 [facility] ([facility]) Platelet Count, Automated 305 10 150-450 MEDE NT ([facility]) ID Date Data Source [id number] 09/14/2019 12:00:00 AM EST [facility] Tonja Cardenas MD Patient Name: SANTOSH [id number] [facility] Date of : Floor Date of Exam: 09/14/2019[place] [id number]#: Fax: [phone] EXAM: MAMMO SCREENING WITH CADCLINICAL [...] mammogram was read with the assistance of [employer]Z4U, an FDAapproved computer aided detection system for [...] COOK to our office. Electronically Signed - ELW OREILLY MD 09/14/19 15:53 Name Value Range Interpretation Code Description Data Elizabeth rce(s) Supporting Document(s) ID Date Data Source [id number] 09/14/2019 10:12:00 AM EST [facility] ([facility]) Name Value Range Interpretation Code Description Data Elizabeth rce(s) Supporting Document(s) 3D Bi-Lateral Mammogram Laboratory test result [facility] ([facility]) Dexa/Bone Density Laboratory test result [facility] ([facility]) Procedure Vital Signs ID Date Data Source [id number] Name Value Range Interpretation Code Description Data Source(s) Body mass index (BMI) [Ratio] 29.6 kg/m2 29.6 k g/m2 [facility] ([facility]) Body weight 153.00 [lb_av] 153.00 [lb_av] MED[facility] T ([facility]) Body height 60.25 [in_i] 60.25 [in_i] [facility] [facility] 5'0.25" Heart rate 96 /min 96 /min MEDENT ([facility]) Diastolic blood pressure 68 mm[Hg] 68 mm[Hg] MEDENT ([facility]) RT Arm Systolic blood pressure 106 mm[Hg] 106 mm[Hg] M EDENT ([facility]) RT Arm Respiratory rate 14 /min 14 /min MEDENT ( [facility] ) Body mass index (BMI) [Ratio] 29.4 kg/m2 29.4 k g/m2 MEDENT ([facility] ) Body weight 155.50 [lb_av] 155.50 [lb_av] MEDEN T ([facility] ) Body height 61 [in_i] 61 [in_i] MEDENT ([facility] ) 5'1" Body temperature 96.8 [degF] 96.8 [degF] MEDENT ([facility] ) Heart rate 75 /min 75 /min MEDENT ([facility] ) Diastolic blood pressure 80 mm[Hg] 80 mm[Hg] MEDENT ([facility] ) Systolic blood pressure 124 mm[Hg] 124 mm[Hg] M EDENT ([facility] ) Body mass index (BMI) [Ratio] 30.3 kg/m2 30.3 k g/m2 MEDENT ([facility]) Oxygen saturation in Arterial blood by Pulse oximetry 99 % 99 % MEDENT ([facility]) RM Air Body weight 156.50 [lb_av] 156.50 [lb_av] MEDEN T ([facility]) Body height 60.25 [in_i] 60.25 [in_i] MEDENT [facility] 5'0.25" Heart rate 94 /min 94 /min MEDENT ([facility]) Diastolic blood pressure 72 mm[Hg] 72 mm[Hg] MEDENT ([facility]) RT Arm Systolic blood pressure 122 mm[Hg] 122 mm[Hg] [facility] RT Arm Body mass index (BMI) [Ratio] 30.0 kg/m2 30.0 k g/m2 MEDENT ([facility]) Oxygen saturation in Arterial blood by Pulse oximetry --post exerci se 92 % 92 % MEDENT ([facility]) RM Air Body weight 155.00 [lb_av] 155.00 [lb_av] MEDEN T ([facility]) Body height 60.25 [in_i] 60.25 [in_i] MEDENT ([facility] 5'0.25" Heart rate 117 /min 117 /min MEDENT ([facility]) Diastolic blood pressure 70 mm[Hg] 70 mm[Hg] MEDENT ([facility]) RT Arm Systolic blood pressure 132 mm[Hg] 132 mm[[facility]] [facility] RT Arm Body mass index (BMI) [Ratio] 28.0 kg/m2 28.0 k g/m2 MEDENT ([facility]) Body height 62 [in_i] 62 [in_i] MEDENT ([facility]) 5'2" Body weight 153.00 [lb_av] 153.00 [lb_av] MEDEN T ([facility]) Body temperature 98.0 [degF] 98.0 [degF] [facility] Oxygen saturation in Arterial blood by Pulse oximetry 97 % 97 % MEDENT ([facility]) Respiratory rate 18 /min 18 /min MEDENT ( [facility]) Heart rate 90 /min 90 /min MEDENT ([facility]) Diastolic blood pressure 68 mm[Hg] 68 mm[Hg] MEDENT ([facility], [facility]) Systolic blood pressure 96 mm[Hg] 96 mm[Hg] M EDENT ([facility], [facility]) Body mass index (BMI) [Ratio] 28.5 kg/m2 28.5 k g/m2 MEDENT ([facility] ) Body weight 149.50 [lb_av] 149.50 [lb_av] MEDEN T ([facility] ) Body height 60.75 [in_i] 60.75 [in_i] MEDENT ([facility] ) 5'0.75" Body temperature 97.5 [degF] 97.5 [degF] MEDENT ([facility] ) Body mass index (BMI) [Ratio] 29.7 kg/m2 29.7 k g/m2 MEDENT ([facility]) Oxygen saturation in Arterial blood by Pulse oximetry --post exerci se 94 % 94 % MEDENT ([facility]) RM Air Body weight 153.12 [lb_av] 153.12 [lb_av] MEDEN T ([facility]) Body height 60.25 [in_i] 60.25 [in_i] [facility] 5'0.25" Heart rate 87 /min 87 /min [facility] Diastolic blood pressure 60 mm[Hg] 60 mm[Hg] MEDENT ([facility]) RT Arm Systolic blood pressure 92 mm[Hg] 92 mm[Hg] M EDENT ([facility]) RT Arm Body temperature 97.2 [degF] 97.2 [degF] MEDENT ([facility] ) Body mass index (BMI) [Ratio] 31.6 kg/m2 31.6 k g/m2 MEDENT ([facility]) Oxygen saturation in Arterial blood by Pulse oximetry --post exerci se 97 % 97 % MEDENT ([facility]) RM Air Body weight 163.12 [lb_av] 163.12 [lb_av] MEDEN T ([facility]) Body height 60.25 [in_i] 60.25 [in_i] MEDENT ([facility] 5'0.25" Heart rate 76 /min 76 /min MEDENT ([facility]) Diastolic blood pressure 58 mm[Hg] 58 mm[Hg] [facility] RT Arm Systolic blood pressure 118 mm[Hg] 118 mm[Hg] [facility] ([facility]) RT Arm Body mass index (BMI) [Ratio] 31.0 kg/m2 31.0 k g/m2 MEDENT ([facility]) Oxygen saturation in Arterial blood by Pulse oximetry 99 % 99 % [facility] ([facility]) Body weight 160.00 [lb_av] 160.00 [lb_av] MEDEN T ([facility]) Body height 60.25 [in_i] 60.25 [in_i] MEDENT ([facility] 5'0.25" Heart rate 70 /min 70 /min MEDENT ([facility]) Diastolic blood pressure 70 mm[Hg] 70 mm[Hg] [facility] Systolic blood pressure 114 mm[Hg] 114 mm[Hg] [facility] ([facility]) Body mass index (BMI) [Ratio] 31.4 kg/m2 31.4 k g/m2 [facility] Oxygen saturation in Arterial blood by Pulse oximetry 97 % 97 % [facility] ([facility]) Body weight 162.00 [lb_av] 162.00 [lb_av] MEDEN T ([facility]) Body height 60.25 [in_i] 60.25 [in_i] MEDENT ([facility] 5'0.25" Heart rate 71 /min 71 /min MEDENT ([facility]) Diastolic blood pressure 70 mm[Hg] 70 mm[Hg] MEDENT ([facility]) Systolic blood pressure 116 mm[Hg] 116 mm[Hg] [facility] ([facility]) Body mass index (BMI) [Ratio] 32.3 kg/m2 32.3 k g/m2 MEDENT ([facility]) Oxygen saturation in Arterial blood by Pulse oximetry 95 % 95 % [facility] RM Air Body weight 167.00 [lb_av] 167.00 [lb_av] MEDEN T ([facility]) Body height 60.25 [in_i] 60.25 [in_i] MEDENT ([facility] 5'0.25" Body mass index (BMI) [Ratio] 32.1 kg/m2 32.1 k g/m2 MEDENT ([facility]) Body weight 165.50 [lb_av] 165.50 [lb_av] MEDEN T ([facility]) Body height 60.25 [in_i] 60.25 [in_i] MEDENT ([facility] 5'0.25" Heart rate 92 /min 92 /min MEDENT ([facility]) Diastolic blood pressure 74 mm[Hg] 74 mm[Hg] MEDENT ([facility]) RT Arm Systolic blood pressure 136 mm[Hg] 136 mm[Hg] [facility] ([facility]) RT Arm Body mass index (BMI) [Ratio] 32.8 kg/m2 32.8 k g/m2 [facility] Oxygen saturation in Arterial blood by Pulse oximetry --post exerci se 95 % 95 % [facility] RM Air Body weight 169.50 [lb_av] 169.50 [lb_av] MEDEN T ([facility]) Body height 60.25 [in_i] 60.25 [in_i] MEDENT ([facility]) 5'0.25" Heart rate 84 /min 84 /min MEDENT ([facility]) Diastolic blood pressure 52 mm[Hg] 52 mm[Hg] MEDENT ([facility]) RT Arm Systolic blood pressure 122 mm[Hg] 122 mm[Hg] [facility] RT Arm Body mass index (BMI) [Ratio] 32.6 kg/m2 32.6 k g/m2 MEDENT ([facility]) Body weight 168.50 [lb_av] 168.50 [lb_av] MEDEN T ([facility]) Body height 60.25 [in_i] 60.25 [in_i] MEDENT ([facility] 5'0.25" Heart rate 88 /min 88 /min [facility] Diastolic blood pressure 58 mm[Hg] 58 mm[Hg] MEDENT ([facility]) RT Arm Systolic blood pressure 102 mm[Hg] 102 mm[Hg] [facility]) RT Arm Body mass index (BMI) [Ratio] 33.4 kg/m2 33.4 k g/m2 MEDENT ([facility]) Oxygen saturation in Arterial blood by Pulse oximetry --post exerci se 94 % 94 % MEDENT ([facility]) RM Air Body weight 172.50 [lb_av] 172.50 [lb_av] MEDEN T ([facility]) Body height 60.25 [in_i] 60.25 [in_i] MEDENT ([facility] 5'0.25" Heart rate 80 /min 80 /min MEDENT ([facility]) Diastolic blood pressure 80 mm[Hg] 80 mm[Hg] MEDENT ([facility]) RT Arm Systolic blood pressure 122 mm[Hg] 122 mm[Hg] [facility] ([facility]) RT Arm Body mass index (BMI) [Ratio] 33.3 kg/m2 33.3 k g/m2 MEDENT ([facility]) Oxygen saturation in Arterial blood by Pulse oximetry --post exerci se 96 % 96 % MEDENT ([facility]) RM Air Body weight 172.00 [lb_av] 172.00 [lb_av] MEDEN T ([facility]) Body height 60.25 [in_i] 60.25 [in_i] MEDENT ([facility] 5'0.25" Heart rate 92 /min 92 /min [facility] Diastolic blood pressure 74 mm[Hg] 74 mm[Hg] MEDENT ([facility]) RT Arm Systolic blood pressure 140 mm[Hg] 140 mm[Hg] [facility] ([facility]) RT Arm Body mass index (BMI) [Ratio] 33.2 kg/m2 33.2 k g/m2 MEDENT ([facility]) Body weight 171.38 [lb_av] 171.38 [lb_av] MEDEN T ([facility]) Body height 60.25 [in_i] 60.25 [in_i] MEDENT ([facility] 5'0.25" Heart rate 96 /min 96 /min MEDENT ([facility]) Diastolic blood pressure 64 mm[Hg] 64 mm[Hg] MEDENT ([facility]) RT Arm Systolic blood pressure 146 mm[Hg] 146 mm[Hg] [facility] RT Arm Body mass index (BMI) [Ratio] 33.3 kg/m2 33.3 k g/m2 MEDENT ([facility]) Oxygen saturation in Arterial blood by Pulse oximetry 96 % 96 % MEDENT ([facility]) RM Air Body weight 172.00 [lb_av] 172.00 [lb_av] MEDEN T ([facility]) Body height 60.25 [in_i] 60.25 [in_i] MEDENT ([facility] 5'0.25" Heart rate 90 /min 90 /min MEDENT ([facility]) Diastolic blood pressure 70 mm[Hg] 70 mm[Hg] MEDENT ([facility]) Systolic blood pressure 118 mm[Hg] 118 mm[Hg] [facility]) Respiratory rate 20 /min 20 /min MEDENT ( [facility]) Body mass index (BMI) [Ratio] 317.5 kg/m2 317.5 kg/m2 MEDENT ([facility] ) Body weight 1708.00 [lb_av] 1708.00 [lb_av] MED ENT ([facility]) Body height 61.5 [in_i] 61.5 [in_i] MEDENT ([facility]) 5'1.50" Body temperature 96.4 [degF] 96.4 [degF] MEDENT ([facility]) Heart rate 80 /min 80 /min MEDENT ([facility]) Diastolic blood pressure 62 mm[Hg] 62 mm[Hg] MEDENT ([facility]) Systolic blood pressure 98 mm[Hg] 98 mm[Hg] M EDENT ([facility]) Body mass index (BMI) [Ratio] 32.2 kg/m2 32.2 k g/m2 MEDENT ([facility]) Body weight 166.50 [lb_av] 166.50 [lb_av] MEDEN T ([facility]) Body height 60.25 [in_i] 60.25 [in_i] [facility] ( [facility] 5'0.25" Heart rate 88 /min 88 /min MEDENT ([facility]) Diastolic blood pressure 78 mm[Hg] 78 mm[Hg] MEDENT ([facility]) RT Arm Systolic blood pressure 128 mm[Hg] 128 mm[Hg] M EDENT ([facility]) RT Arm Diastolic blood pressure 69 mm[Hg] 69 mm[Hg] eCW1 ([facility]) Systolic blood pressure 142 mm[Hg] 142 mm[Hg] e CW1 ([facility]) Body temperature 97.2 [degF] 97.2 [degF] eCW1 ( [facility]) Respiratory rate 16 /min 16 /min eCW1 ([facility]) Heart rate 78 /min 78 /min eCW1 ([facility]) Body mass index (BMI) [Ratio] 31.16 kg/m2 31.16 kg/m2 eCW1 ([facility]) Body height 62 [in_us] 62 [in_us] eCW1 ([facility]) Body weight Measured 170.4 [lb_av] 170.4 [lb_av ] eCW1 ([facility]) Diastolic blood pressure 72 mm[Hg] 72 mm[Hg] eCW1 ([facility]) Systolic blood pressure 140 mm[Hg] 140 mm[Hg] e CW1 ([facility]) Body temperature 96.0 [degF] 96.0 [degF] eCW1 ( [facility]) Respiratory rate 16 /min 16 /min eCW1 ([facility]) Heart rate 104 /min 104 /min eCW1 ([facility]) Body mass index (BMI) [Ratio] 31.24 kg/m2 31.24 kg/m2 eCW1 ([facility]) Body height 62 [in_us] 62 [in_us] eCW1 ([facility]) Body weight Measured 170.8 [lb_av] 170.8 [lb_av ] eCW1 ([facility]) Body mass index (BMI) [Ratio] 32.0 kg/m2 32.0 k g/m2 MEDENT ([facility]) Body weight 172.00 [lb_av] 172.00 [lb_av] MEDEN T ([facility]) Body height 61.5 [in_i] 61.5 [in_i] MEDENT ([facility]) 5'1.50" Diastolic blood pressure 73 mm[Hg] 73 mm[Hg] eCW1 ([facility]) Systolic blood pressure 131 mm[Hg] 131 mm[Hg] e CW1 ([facility]) Body temperature 96.1 [degF] 96.1 [degF] eCW1 ( [facility]) Respiratory rate 16 /min 16 /min eCW1 ([facility]) Heart rate 85 /min 85 /min eCW1 ([facility]) Body mass index (BMI) [Ratio] 31.64 kg/m2 31.64 kg/m2 eCW1 ([facility]) Body height 62 [in_us] 62 [in_us] eCW1 ([facility]) Body weight Measured 173.0 [lb_av] 173.0 [lb_av ] eCW1 ([facility]) Diastolic blood pressure 75 mm[Hg] 75 mm[Hg] eCW1 ([facility]) Systolic blood pressure 146 mm[Hg] 146 mm[Hg] e CW1 ([facility]) Body temperature 97.5 [degF] 97.5 [degF] eCW1 ( [facility]) Respiratory rate 16 /min 16 /min eCW1 ([facility]) Heart rate 87 /min 87 /min eCW1 ([facility]) Body mass index (BMI) [Ratio] 30.98 kg/m2 30.98 kg/m2 eCW1 ([facility]) Body height 62 [in_us] 62 [in_us] eCW1 ([facility]) Body weight Measured 169.4 [lb_av] 169.4 [lb_av ] eCW1 ([facility])
[2020-08-31 17:19] LABS: BILIRUBIN,DIRECT 0.4 MG/DL (0.0-0.2); BILIRUBIN,TOTAL 1.2 MG/DL (0.2-1.0); TOTAL PROTEIN 7.3 GM/DL (6.4-8.2)
[2020-08-31] MEDS ORDERED: ISOVUE-370 76% 100ML VIAL As Ordered ONE (18:03)
[2020-08-31 18:06] LABS: AMPHETAMINES LEVEL URINE NEGATIVE (NEGATIVE); BARBITURATES URINE NEGATIVE (NEGATIVE); BENZODIAZEPINES URINE NEGATIVE (NEGATIVE); CANNABINOIDS URINE NEGATIVE (NEGATIVE); COCAINE METABOLITE URINE NEGATIVE (NEGATIVE); METHADONE URINE NEGATIVE (NEGATIVE); OPIATES URINE NEGATIVE (NEGATIVE); PHENCYCLIDINE URINE NEGATIVE (NEGATIVE)
--- NOTE | 2020-08-31 19:02 | REPVR ---
PROCEDURE INFORMATION: Exam: CT Abdomen And Pelvis With Contrast Exam date and time: 08/31/2020 6:17 PM Age: 74 years old Clinical indication: Abdominal pain; Localized; Right; Additional info: Right flank pain TECHNIQUE: Imaging protocol: Computed tomography of the abdomen and pelvis with intravenous contrast. Radiation optimization: All CT scans at this facility use at least one of these dose optimization techniques: automated exposure control; mA and/or kV adjustment per patient size (includes targeted exams where dose is matched to clinical indication); or iterative reconstruction. Contrast material: ISOVUE 370; Contrast volume: 100 ml; Contrast route: INTRAVENOUS (IV); COMPARISON: CT ABD PELVIS W/O CONTRAST 09/11/2017 5:13 PM FINDINGS: Liver: Normal. No mass. Gallbladder and bile ducts: Normal. No calcified stones. No ductal dilation. Pancreas: Normal. No ductal dilation. Spleen: Normal. No splenomegaly. Adrenal glands: Normal. No mass. Kidneys and ureters: Normal. No hydronephrosis. Stomach and bowel: Unremarkable. No obstruction. No mucosal thickening. Appendix: No evidence of appendicitis. Intraperitoneal space: Unremarkable. No free air. No significant fluid collection. Vasculature: Unremarkable. No abdominal aortic aneurysm. Lymph nodes: Unremarkable. No enlarged lymph nodes. Urinary bladder: Unremarkable as visualized. Reproductive: Unremarkable as visualized. Bones/joints: Degenerative changes of the spine. Soft tissues: Unremarkable. IMPRESSION: No acute abdominal or pelvic abnormality Electronically signed by: Dionicio Dumont On 08/31/2020 19:02:28 PM
[2020-08-31] MEDS ORDERED: traMADol 50 MG TAB PO ONE (21:15)
[2020-08-31 21:40] VITALS: BP 157/73
== END 2020-08-31 21:43 | disposition home or self-care (01) ==
LOC: M ED 15:37
DX: E86.0 Dehydration (principal); G89.29 Other chronic pain; M54.6 Pain in thoracic spine; M25.561 Pain in right knee; R19.7 Diarrhea, unspecified; J02.9 Acute pharyngitis, unspecified; R51.9 Headache, unspecified; E78.5 Hyperlipidemia, unspecified; E03.9 Hypothyroidism, unspecified; D68.51 Activated protein C resistance; J45.909 Unspecified asthma, uncomplicated; M81.0 Age-related osteoporosis without current pathological fracture; Z86.718 Personal history of other venous thrombosis and embolism; F41.9 Anxiety disorder, unspecified; F33.9 Major depressive disorder, recurrent, unspecified; Z88.1 Allergy status to other antibiotic agents; Z88.8 Allergy status to other drugs, medicaments and biological substances; Z79.899 Other long term (current) drug therapy

== ENCOUNTER 2020-09-02 04:57 | Inpatient (IN) | payer MEDICARE, BC, OTHER ==
[~2020-09-02] VITALS: Ht 157.5 cm; Wt 68.0 kg
--- OUTSIDE RECORDS SUMMARY | 2020-09-02 05:03 | CCD | Continuity of Care Document ---
Author Organization Unknown Address Unknown Phone Unavailable Care Team Providers Care Gear Generator Set Up Operator Name Role Phone Tonja Cardenas MD AUTM [phone] Riaz Parisi DO AUTM [phone] Ledy Funes NP AUTM [phone] Trina Weber MD AUTM [phone] Fritz Gorman MD AUTM Unavailable Ajay Izquierdo MD AUTM [phone] Problems Active Problems Provider Date Benign essential [...] SIG Qnty Indications Ordering Provide r Date Baclofen 10mg Tablets 1 Tab 2-3 Times A Day as Needed 90tabs Tonja Cardenas M.D. 08/27/19 21 Albuterol Sulfate HFA 108(90Base) mcg/Act Aerosol inhale [...] Terri Barker 03/15/2019 Rosuvastatin Calcium 5mg Tablets Take 1 Tablet By Mouth Every Day 90tabs Terri Barker 04/27/2018 Nebulizer Device as p rescribed dx asthma Tonja Cardenas M.D. 01/12/2018 Zyrtec Allergy 10mg Tablets 1 by mouth every day 90tabs Tonja Cardenas M.D. 05/03/20 17 Preparation H 0.25-14-74.9% Ointment prn Tonja Cardenas M.D. 02/02/2016 TENS prn Tonja Cardenas M.D. 1 09/17/2013 Transport Chair [facility] [place] needed for ambulatory dysfunction. 1units Tonja Cardenas [...] as needed pain 120tabs Gianluca Barker 12/07/2010 History Medications Cyclobenzaprine HCL 5mg Tablets take 1-2 tablet by mouth bid prn 60tabs Tonja Cardenas M.D. 08/05/2020 - 08/27/2020 Medications Administered in Office Medication SIG Qnty Indications Ordering Provider Date Administration Of Flu Vaccine Inj ection Tonja Cardenas M.D. 06/11/20 15 Immunizations CPT Code Status Date Vaccine Lot # U-Flu Given 05/17/2019 Influenza,Unspecified U-PneuC Given 05/20/2018 Prevnar 13 U-Flu Given 05/20/2018 Influenza,Unspecified [id number] Given 02/09/2018 Shingrix 17214 Given 12/09/2017 Shingrix 90809 Given 06/14/2017 Adacel- Tetanus Diphtheria P ertussis (Age64 & Under) [id number] U-Flu Given 06/03/2017 Influenza,Unspecified U-PneuC Given 11/27/2015 Prevnar 13 [id number] Given 06/11/2015 Fluvirin Virus Vaccine [id number] 01 33238 Given 04/25/2013 Zoster Vaccine [id number] 20538 Given 05/30/2008 Influenza Virus Vaccine 32067 Given 06/27/2007 Pneumovax 23 93138 Given 05/29/2007 Influenza Virus Vaccine 67992 Given 05/31/2002 Influenza Virus Vaccine 31660 Given 06/23/2001 Influenza Virus Vaccine Vital Signs [...] Date Facility Test Result H/L Range Note Istat Chem8+ Panel 08/31/2020 [facility] nter [address] [place], [place] [id number] [phone] iSTAT HCT 39.0 % Normal 38.0-51.0 iSTAT Glucose 109 mg/dL High 70-105 iSTAT Sodium 143 mEq/L Normal 136-145 iSTAT Potassium 3.4 mEq/L Low 3.5-5.1 iSTAT CA++ 4.6 mg/dL Normal 4.5-5.3 iSTAT Chloride 109 mEq/L Normal 98-109 iSTAT Co2 23.0 MM/L Normal 23.0-27.0 iSTAT BUN 43 mg/dL High 8-26 iSTAT Creatinine 1.4 mg/dL High 0.6-1.3 CBC With Differential 08/31/2020 [facility] [address] [place], [place] [id number] [phone] White Blood Count 12.3 10 High 4.0-10.0 Red Blood Count 4.55 10 Normal 4.00-5.40 Hemoglobin 12.6 g/dL Normal 12.0-15.5 Hematocrit 39.4 % Normal 36.0-47.0 Mean Corpuscular Volume 86.6 fl Normal 80.0-96.0 Mean Corpuscular Hemoglobin 27.7 pg Normal 27.0-33.0 Mean Corpuscular HGB Conc 32.0 g/dL Normal 32.0-36.5 Red Cell Distribution Width 13.7 % Normal 11.5-14.5 Platelet Count, Automated 347 10 Normal 150-450 Neutrophils % 80.7 % High 36.0-66.0 Lymph % 10.0 % Low 24.0-44.0 Fill[place] % 8.6 % High 0.0-5.0 Eos % 0.1 % Normal 0.0-3.0 Baso % 0.4 % Normal 0.0-1.0 Immature Granulocyte % 0.2 % Normal 0-3.0 Nucleated Red Blood Cell % 0.0 % Normal 0-0 Neutrophils # 9.9 10 High 1.5-8.5 Lymph # 1.2 10 Low 1.5-5.0 Fillmore # 1.1 10 High 0.0-0.8 Eos # 0.0 10 Normal 0.0-0.5 Baso # 0.1 10 Normal 0.0-0.2 Prothrombin Time/Inr 08/31/2020 [facility] [address] [place] [address] [phone] Prothrombin Time 13.6 seconds Normal 12.5-14.3 Inr 1.02 Normal 1 Laboratory test finding 08/31/2020 [facility] [address] [place] [address] [phone] Partial Thromboplastin Time 28.8 seconds Normal 24 .2-38.5 Ammonia < 10 uMOL/L Normal <32 Liver Profile 08/31/2020 [facility] nter [address] [place], [place] [address] [phone] Ast/Sgot 288 U/L High 7-37 Alt/SGPT 150 U/L High 12-78 Alkaline Phosphatase 135 U/L High 45-117 Bilirubin,Total 1.2 mg/dL High 0.2-1.0 Bilirubin,Direct 0.4 mg/dL High 0.0-0.2 Total Protein 7.3 GM/DL Normal 6.4-8.2 Albumin 4.0 GM/DL Normal 3.2-5.2 Albumin/Globulin Ratio 1.2 Normal 1.2-2.2 Laboratory test finding 08/31/[address] [address] [phone] Lipase 80 U/L Normal 73-393 Ua W/ Reflex To Culture 08/31/[address] [address] [phone] Appearance, Urine RFX HAZY Normal Clear Color, Urine RFX LINDA Normal Yellow PH,Urine RFX 5.0 units Normal 5.0-9.0 Specific Niland Ur Auto RFX 1.029 Normal 1.002-1.035 Protein, Urine Auto RFX 2+ mg/dL High Negative Glucose, Urine (Ua) Auto RFX NEGATIVE mg/dL Normal Negative Ketone, Urine Auto RFX 1+ mg/dL High Negative Urobilinogen, Urine Auto RFX 0.2 mg/dL Normal 0.0-2.0 Bilirubin, Urine Auto RFX NEGATIVE Normal Negative Nitrite, Urine Auto RFX NEGATIVE Normal Negative Leukocyte Esterase Ur Auto RFX NEGATIVE Normal Negative Blood, Urine Blood RFX NEGATIVE Normal Negative WBC, Urine Auto RFX 0 /HPF Normal 0-3 RBC, Urine Auto RFX 27 /HPF High 0-3 Bacteria, Urine Auto RFX NEGATIVE Normal Negative Squam Epithelial Cell Ur Aurfx 2 /HPF Normal 0-6 Mucus, Urine RFX SMALL Normal Negative Hyaline Cast, Urine Auto RFX 0 /LPF Normal 0-1 Drug Eval Toxicology ED Only 08/31/[address] [address] [phone] Amphetamines Level Urine NEGATIVE Normal Negativ e Barbiturates Urine NEGATIVE Normal Negative Benzodiazepines Urine NEGATIVE Normal Negative Cannabinoids Urine NEGATIVE Normal Negative Cocaine Metabolite Urine NEGATIVE Normal Negative Methadone Urine NEGATIVE Normal Negative Opiates Urine NEGATIVE Normal Negative Phencyclidine Urine NEGATIVE Normal Negative 2 Complete Blood Count 08/05/2020 [facility] Payment Specialist: Dr Ramírez [place] [address] [phone] WBC 8.0 x10*3/UL 4.1 - 10.9 RBC 4.97 x10*6/UL 4.20 - 6.30 Hemoglobin 14.4 g/dL 12.0 - 18.0 Hematocrit 41.7 % 37.0 - 51.0 MCV 83.8 fL 80.0 - 97.0 MCH 29.0 pg 26.0 - 32.0 MCHC 34.5 g/dL 31.0 - 38.0 RDW 12.9 % 11.6 - 13.7 PLT 440 x10*3/UL 140 - 440 MPV 7.7 FL Low 7.8 - 11.0 Lymph % 20.5 % 10.0 - 58.5 Mid % 4.4 % 1.7 - 9.3 Neut % 75.1 % 37.0 - 92.0 Lymph # 1.6 x10*3/UL 0.6 - 4.1 Mid # 0.4 x10*3/UL 0.1 - 0.6 Neut # 6.0 x10*3/UL 2.0 - 7.8 Comprehensive Chem Profile 08/05/2020 [facility] Payment Specialist: Dr Ramírez [place] [address] [phone] Glucose 99 mg/dL 74 - 99 3 BUN 20 mg/dL High 7 - 18 Creatinine 1.5 mg/dL High 0.6 - 1.3 Sodium 140 mEq/L 136 - 145 Potassium 4.3 mEq/L 3.5 - 5.1 Chloride 102 mEq/L 98 - 107 Carbon Dioxide 27 mEq/L 21 - 32 Calcium 9.3 mg/dL 8.5 - 10.1 Alk. Phosphatase 159 mg/dL High 46 - 116 Total Bilirubin 0.9 mg/dL 0.2 - 1.0 Ast (Sgot) 37 U/L 15 - 37 Alt (SGPT) 55 U/L 12 - 78 Albumin 3.9 g/dL 3.4 - 5.0 Total Protein 7.1 g/dL 6.4 - 8.2 A/G Ratio 1.22 CALC 1.00 - 1.90 GFR 34 mL/min Low >60 GFR 41 mL/min Low >60 4 Laboratory test finding 08/05/2020 [facility] Payment Specialist: Dr Ramírez [place] [address] [phone] Thyroid Stimulating Hormone 3.45 uIU/mL 0.3 6 - 3.74 Liver Function Profile 07/02/2020 [facility] Payment Specialist: Dr Ramírez [place] [address] [phone] Alk. Phosphatase 152 mg/dL High 46 - 116 Total Bilirubin 0.8 mg/dL 0.2 - 1.0 Ast (Sgot) 55 U/L High 15 - 37 Alt (SGPT) 96 U/L High 12 - 78 Albumin 4.1 g/dL 3.4 - 5.0 Total Protein 7.9 g/dL 6.4 - 8.2 Direct Bilirubin 0.2 mg/dL High 0.0 - 0.2 A/G Ratio 1.08 CALC 1.00 - 1.90 Liver Function Profile 06/26/2020 [facility] Payment Specialist: Dr Ramírez Nasc[address] [place], [place] [address] [phone] Alk. Phosphatase 136 mg/dL High 46 - 116 Total Bilirubin 0.8 mg/dL 0.2 - 1.0 Ast (Sgot) 62 U/L High 15 - 37 Alt (SGPT) 103 U/L High 12 - 78 Albumin 3.7 g/dL 3.4 - 5.0 Total Protein 6.8 g/dL 6.4 - 8.2 Direct Bilirubin 0.2 mg/dL 0.0 - 0.2 A/G Ratio 1.19 CALC 1.00 - 1.90 Laboratory test finding 06/23/2020 [facility] [address] [place] [address] [phone] Erythrocyte Sedimentation Rate 25 mm/hr Normal 0 -30 Complete Blood Count 06/23/2020 [facility] [address] [place] [address] [phone] White Blood Count 8.8 10 Normal 4.0-10.0 [...] 0.0 % Normal 0-0 Comprehensive Metabolic Profil 06/23/2020 [facility] [address] [place], [place] [address] [phone] Glucose, Fasting 115 mg/dL High 70-100 Blood Urea Nitrogen 17 mg/dL Normal 7-18 Creatinine For GFR 1.24 mg/dL Normal 0.55-1.30 Glomerular Filtration Rate 44.9 Normal >39 5 Sodium Level 139 mEq/L Normal 136-145 Potassium [...] Albumin/Globulin Ratio 1.2 Normal 1.2-2.2 Prothrombin Time/Inr 06/23/2020 [facility] [address] [place], [place] [address] [phone] Prothrombin Time 18.2 seconds High 12.5-14.3 Inr 1.48 Normal 6 Comprehensive Chem Profile 05/13/2020 [facility] Payment Specialist: Dr Ramírez [place] [address] [phone] Glucose 105 mg/dL High 74 - 99 7 BUN 21 mg/dL High 7 - 18 [...] Low >60 GFR 53 mL/min Low >60 8 Laboratory test finding 05/13/2020 [facility] Payment Specialist: Dr Ramírez [place] [address] [phone] Thyroid Stimulating Hormone 6.74 uIU/mL High 0.3 6 - 3.74 Complete Blood Count 05/13/2020 [facility] Payment Specialist: Dr Ramírez [place] [address] [phone] WBC 8.8 x10*3/UL 4.1 - 10.9 RBC [...] 2.0 - 7.8 Complete Blood Count 04/07/2020 [facility] Payment Specialist: Dr Ramírez [place] [address] [phone] WBC 8.5 x10*3/UL 4.1 - 10.9 RBC [...] 2.0 - 7.8 Laboratory test finding 04/07/2020 [facility] Payment Specialist: Dr Ramírez Nasc[address] [place], [place] [address] [phone] Magnesium 2.0 mg/dL 1.8 - 2.4 Comprehensive Chem Profile 04/07/2020 [facility] Payment Specialist: Dr Ramírez N[address] [place], [place] [address] [phone] Glucose 106 mg/dL High 74 - 99 9 BUN 18 mg/dL 7 - 18 Creatinine [...] Low >60 GFR 48 mL/min Low >60 10 Laboratory test finding 04/07/2020 [facility] Payment Specialist: Dr Ramírez [place] [address] [phone] Thyroid Stimulating Hormone 1.02 uIU/mL 0.3 6 - 3.74 Complete Blood Count 03/04/2020 [facility] Payment Specialist: Dr Ramírez [place] [address] [phone] WBC 12.6 x10*3/UL High 4.1 - 10.9 11 RBC 4.45 x10*6/UL 4.20 - 6.30 Hemoglobin [...] 2.0 - 7.8 Comprehensive Chem Profile 03/04/2020 [facility] Payment Specialist: Dr Ram[address]rez [place] [address] [phone] Glucose 99 mg/dL 74 - 99 12 BUN 17 mg/dL 7 - 18 Creatinine 1.4 mg/dL High 0.6 - 1.3 Sodium 140 mEq/L 136 - 145 Potassium 4.3 mEq/L 3.5 - 5.1 Chloride 103 mEq/L 98 - 107 Carbon Dioxide 26 mEq/L 21 - 32 Calcium 8.2 mg/dL Low 8.5 - 10.1 13 Alk. Phosphatase 115 mg/dL 46 - 116 Total Bilirubin 0.8 mg/dL 0.2 - 1.0 Ast (Sgot) 32 U/L 15 - 37 Alt (SGPT) 47 U/L 12 - 78 Albumin 3.4 g/dL 3.4 - 5.0 Total Protein 6.5 g/dL 6.4 - 8.2 A/G Ratio 1.10 CALC 1.00 - 1.90 GFR 37 mL/min Low >60 GFR 44 mL/min Low >60 14 1 THERAPUTIC HUMAN INR VALUES INDICATIONS NORMAL RANGES PROPHYLAXIS/TREATMENT OF: VENOUS THROMBOSIS 2.0-3.0 PULMONARY EMBOLISM 2.0-3.0 PREVENTION OF SYSTEMIC EMBOLISM FROM: TISSUE HEART VALVES 2.0-3.0 ACUTE MYOCARDIAL INFARCTION 2.0-3.0 VALVULAR HEART DISEASE 2.0-3.0 ATRIAL FIBRILLATION 2.0-3.0 MECHANICAL VALVES(HIGH RISK) 2.5-3.5 RECURRENT MYOCARDIAL INFARCTION 2.5-3.5 2 ALL PRESUMPTIVE POSITIVE FINDINGS ARE UNCONFIRMED THRESHOLD IN NG/ML AMPHETAMINES/METHAMPHET 1000 BARBITURATES 200 BENZODIAZEPINES 200 CANNABINOIDS (THC) 50 COCAINE METABOLITE 300 METHADONE 300 OPIATES 300 PHENCYCLIDINE 25 RESULTS ARE FOR MEDICAL PURPOSES ONLY. ALL URINE SPECIMENS WILL BE SAVED FOR 3 DAYS. IF CONFIRMATION OF A PRESUMPTIVE POSITIVE SCREEN RESULT IS DESIRED, CALL CHEMISTRY ([phone]) AND REQUEST URINE TO BE SENT TO REFERENCE LAB. FOR A LIST OF CLOSELY RELATED COMPOUNDS PLEASE CALL THE LAB. 3 100-125 mg/dL PRE-DIABET ES/FASTING >126 mg/dL DIABETES/FASTING 4 CHRONIC KIDNEY DISEASE STAGI NG PER NKF STAGE I & II GFR >= 60 NORMAL TO MILDLY DECREASED STAGE III GFR 30-59 MODERATELY DECREASED STAGE IV GFR 15-29 SEVERELY DECREASED STAGE V GFR <15 VERY LITTLE GFR LEFT ESRD GFR <15 ON TICKET SCHEDULER 5 Units are mL/min/1.73 m2 Chronic Kidney Disease Staging per NKF: Stage I & II GFR >=60 Normal to Mildly Decreased Stage III GFR 30-59 Moderately Decreased Stage IV GFR 15-29 Severely Decreased Stage V GFR <15 Very Little GFR Left ESRD GFR <15 on TICKET SCHEDULER 6 THERAPUTIC HUMAN INR VALUES INDICATIONS NORMAL RANGES PROPHYLAXIS/TREATMENT OF: VENOUS THROMBOSIS 2.0-3.0 PULMONARY EMBOLISM 2.0-3.0 PREVENTION OF SYSTEMIC EMBOLISM FROM: TISSUE HEART VALVES 2.0-3.0 ACUTE MYOCARDIAL INFARCTION 2.0-3.0 VALVULAR HEART DISEASE 2.0-3.0 ATRIAL FIBRILLATION 2.0-3.0 MECHANICAL VALVES(HIGH RISK) 2.5-3.5 RECURRENT MYOCARDIAL INFARCTION 2.5-3.5 7 100-125 mg/dL PRE-DIABET ES/FASTING >126 mg/dL DIABETES/FASTING 8 CHRONIC KIDNEY DISEASE STAGI NG PER NKF STAGE I & II GFR >= 60 NORMAL TO MILDLY DECREASED STAGE III GFR 30-59 MODERATELY DECREASED STAGE IV GFR 15-29 SEVERELY DECREASED STAGE V GFR <15 VERY LITTLE GFR LEFT ESRD GFR <15 ON TICKET SCHEDULER 9 100-125 mg/dL PRE-DIABET ES/FASTING >126 mg/dL DIABETES/FASTING 10 CHRONIC KIDNEY DISEASE STAGI NG PER NKF STAGE I & II GFR >= 60 NORMAL TO MILDLY DECREASED STAGE III GFR 30-59 MODERATELY DECREASED STAGE IV GFR 15-29 SEVERELY DECREASED STAGE V GFR <15 VERY LITTLE GFR LEFT ESRD GFR <15 ON TICKET SCHEDULER 11 NOTE: CBC VERIFIED 12 100-125 mg/dL PRE-DIABET ES/FASTING >126 mg/dL DIABETES/FASTING 13 NOTE: RESULT VERIFIED. 14 CHRONIC KIDNEY DISEASE STAGI NG PER NKF STAGE I & II GFR >= 60 NORMAL TO MILDLY DECREASED STAGE III GFR 30-59 MODERATELY DECREASED STAGE IV GFR 15-29 SEVERELY DECREASED STAGE V GFR <15 VERY LITTLE GFR LEFT ESRD GFR <15 ON TICKET SCHEDULER Procedures Date Code Description Status 09/14/2019 [id number] Mammogram Completed 09/04/2019 [id number] Bone Mineral Density Test [facility] 06/01/2018 [id number] Mammogram Completed 04/26/2017 [id number] Bone Mineral Density Test [facility] 04/26/2017 [id number] Mammogram Completed 12/25/2015 [id number] Mammogram Completed 09/04/2015 [id number] Colonoscopy Completed 08/21/2014 [id number] Mammogram Completed 01/02/2014 [id number] Diabetic Retinal Eye Exam [facility] 08/14/2013 [id number] Mammogram Completed 03/28/2012 [id number] Colonoscopy Completed 01/14/2011 [id number] Mammogram Completed 01/13/2011 [id number] Bone Mineral Density Test [facility] 04/25/2007 [id number] Bone Mineral Density Test [facility] 11/17/2006 [id number] Mammogram Completed Medical Devices Description No Information Available Encounters Type Date Location Provider Dx Diagnosis Office Visit 08/05/2020 8:30a [facility]a Cardenas M.D. R74.01 Elevation of levels of liver transaminase levels I12.9 Hypertensive chronic kidney disease w stg 1-4/unsp chr kdny N18.30 Chronic kidney disease, stag e 3 unspecified M19.90 Unspecified osteoarthritis, unspecified site M81.0 Age-related osteoporosis w/o current pathological fracture K21.9 Gastro-esophageal reflux dis ease without esophagitis J45.909 Unspecified asthma, uncompli cated F41.9 Anxiety disorder, unspecifie d Office Visit 06/26/2020 10[facility] Z01.810 Encounter for preprocedural cardiovascular examination [...] osteoarthritis, unspecified site Office Visit 05/13/2020 9:00a [facility] M.[facility]. 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 Dimitry Cardenas M.D. 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 08/05/2020 I12.9 Hypertensive chronic kidney disease with stage 1 through stage 4 chronic kidney disease, or unspecified chronic kidney disease Tonja Cardenas M.D. 08/05/2020 N18.30 Chronic kidney disease, stage 3 unspecified Tonja Cardenas M.D. 08/05/2020 M19.90 Unspecified osteoarthritis, unsp ecified site Tonja Cardenas M.D. 08/05/2020 M81.0 Age-related osteoporosis without current pathological fracture Tonja Cardenas M.D. 08/05/2020 K21.9 Gastro-esophageal reflux disease without esophagitis Tonja Cardenas M.D. 08/05/2020 J45.909 Unspecified asthma, uncomplicate d Tonja Cardenas M.D. 08/05/2020 F41.9 Anxiety disorder, unspecified Margarita Cardenas M.D. 07/02/2020 R74.01 Elevation of levels [...] cor pulmonale Tonja Cardenas M.D. 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 03/04/2020 Z79.01 alf (current) use of antic oagulants Tonja Cardenas M.D. 03/04/2020 M81.0 Age-related osteoporosis without current pathological fracture Tonja Cardenas M.D. 03/04/2020 J45.909 Unspecified asthma, uncomplicate d Tonja Cardenas M.D. 03/04/2020 F41.9 Anxiety disorder, unspecified Margarita Cardenas M.D. 03/04/2020 F32.89 Other specified depressive episo merly Tonja Cardenas M.D. 03/04/2020 E03.9 Hypothyroidism, unspecified Sharon Cardenas M.D. 03/04/2020 G47.00 Insomnia, unspecified Tonja peacock M.D. Plan of Treatment Future Appointment(s):* 09/17/2020 8:45 am - Tonja [facility] M[facility]. at [facility] 08/05/2020 - Tonja Cardenas M.D.* R74.01 Elevation of levels of liver transaminase levels * I12.9 Hypertensive chronic kidney disease with stage 1 through stage 4 chronic kidney disease, or unspecified chronic kidney disease * N18.30 Chronic kidney disease, stage 3 unspecified * M19.90 Unspecified osteoarthritis, unspecified site * M81.0 Age-related osteoporosis without current pathological fracture * K21.9 Gastro-esophageal reflux disease without esophagitis * J45.909 Unspecified asthma, uncomplicated * F41.9 Anxiety disorder, unspecified * All * New Medication:* Cyclobenzaprine HCL 5 mg - take 1-2 tablet by mouth bid prn * Comments:* 9. PE. Continue Xarelto. She is renally dosed at 15 mg daily. Check CBC Functional Status Description No Information Available Mental Status Description No Information Available Referrals Description No Information Available
--- OUTSIDE RECORDS SUMMARY | 2020-09-02 05:06 | CCD ---
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 Glomerular filtration rate/1.73 sq M pre dicted among blacks [Volume Rate/Area] in Serum or Plasma by Creatinine-based formula (MDRD) 41 mL/min [facility] <content>CHRONIC KIDNEY DISEASE STAGING PER NKF</content>
<content></content>
<content>STAGE I & II GFR >= 60 NORMAL TO MILDLY DECREASED</content>
<content>STAGE III GFR 30-59 MODERATELY DECREASED</content>
<content>STAGE IV GFR 15-29 SEVERELY DECREASED</content>
<content>STAGE V GFR <15 VERY LITTLE GFR LEFT</content>
<content>ESRD GFR <[address] [place]</content>
<content></content> ID Date Data Source [id number] 08/05/2020 09:09:00 AM EST [facility] ([facility]) Name Value Range Interpretation Code Description Data Elizabeth rce(s) Supporting Document(s) Leukocytes [#/volume] in Blood by Automated count 8.0 x10*3/UL 4.1-10 .9 [facility] ([facility]) Erythrocytes [#/volume] in Blood by Automated count 4.97 x10*6/UL 4.2 0-6.30 [facility] ([facility]) Hemoglobin [Mass/volume] in Blood 14.4 g/dL 12.0-18.0 [facility] Hematocrit [Volume Fraction] of Blood by Automated count 41.7 % 3 7.0-51.0 [facility] ([facility]) MCH 29.0 pg 26.0-32.0 [facility] MCV 83.8 fL 80.0-97.0 [facility] ([facility]) Erythrocyte distribution width [Ratio] by Automated count 12.9 % 11.6-13.7 [facility] ([facility]) MCHC 34.5 g/dL 31.0-38.0 [facility] Lymph % 20.5 % 10.0-58.5 [facility] ([facility]) Platelets [#/volume] in Blood by Automated count 440 x10*3/UL 140-440 [facility] ([facility]) MPV 7.7 FL 7.8-11.0 [facility]) Neut % 75.1 % 37.0-92.0 [facility]) Mid % 4.4 % 1.7-9.3 [facility]) Lymph # 1.6 x10*3/UL 0.6-4.1 [facility] ([facility]) Mid # 0.4 x10*3/UL 0.1-0.6 [facility] ([facility]) Neut # 6.0 x10*3/UL 2.0-7.8 [facility] ([facility]) ID Date Data Source [id number] 07/02/2020 10:30:00 AM EST [facility] Name Value Range Interpretation Code Description Data Elizabeth rce(s) Supporting Document(s) SARS coronavirus 2 RNA [facility] This lab was ordered by [facility] and reported by [facility]. ID Date Data Source [id number] 07/02/2020 10:25:00 AM EST [facility] ([facility]) Name Value Range Interpretation Code Description Data Elizabeth rce(s) Supporting Document(s) Total Bilirubin 0.8 mg/dL 0.2-1.0 [facility] ([facility]) Alkaline phosphatase isoenzyme [Units/volume] in Serum or Pl asma 152 mg/dL 46-116 [facility] ([facility]) Aspartate aminotransferase [Enzymatic activity/volume] in Serum or Plasma 55 U/L 15-37 [facility] ([facility] ) Albumin [Mass/volume] in Serum or Plasma 4.1 g/dL 3.4-5.0 [facility] ([facility]) Alanine aminotransferase [Enzymatic activity/volume] in Seru m or Plasma 96 U/L 12-78 [facility] ([facility]) A/G Ratio 1.08 CALC 1.00-1.90 [facility] ([facility]) Direct Bilirubin 0.2 mg/dL 0.0-0.2 [facility] ([facility]) Proteinase 3 Ab [Units/volume] in Serum 7.9 g/dL 6.4-8.2 [facility] ID Date Data Source [id number] 06/26/2020 09:48:00 AM EST [facility] ([facility]) Name Value Range Interpretation Code Description Data Elizabeth rce(s) Supporting Document(s) Alkaline phosphatase isoenzyme [Units/volume] in Serum or Pl asma 136 mg/dL 46-116 [facility] ([facility]) Total Bilirubin 0.8 mg/dL 0.2-1.0 [facility] ([facility]) Alanine aminotransferase [Enzymatic activity/volume] in Seru m or Plasma 103 U/L 12-78 [facility] ([facility]) Aspartate aminotransferase [Enzymatic activity/volume] in Serum or Plasma 62 U/L 15-37 [facility] ([facility] ) Albumin [Mass/volume] in Serum or Plasma 3.7 g/dL 3.4-5.0 [facility] ([facility]) Proteinase 3 Ab [Units/volume] in Serum 6.8 g/dL 6.4-8.2 [facility] Direct Bilirubin 0.2 mg/dL 0.0-0.2 [facility] ([facility]) A/G Ratio 1.19 CALC 1.00-1.90 [facility] ([facility]) ID Date Data Source [id number] 06/23/2020 09:11:00 AM EST [facility] ([facility]) Name Value Range Interpretation Code Description Data Elizabeth rce(s) Supporting Document(s) Prothrombin Time 18.2 s 12.5-14.3 [facility] Inr 1.48 [facility] ([facility]) THERAPUTIC HUMAN INR VALUES INDICATIONS NORMAL RANGES PROPHYLAXIS/TREATMENT OF: VENOUS THROMBOSIS 2.0-3.0 PULMONARY EMBOLISM 2.0-3.0 PREVENTION OF SYSTEMIC EMBOLISM FROM: TISSUE HEART VALVES 2.0-3.0 ACUTE MYOCARDIAL INFARCTION 2.0-3.0 VALVULAR HEART DISEASE 2.0-3.0 ATRIAL FIBRILLATION 2.0-3.0 MECHANICAL VALVES(HIGH RISK) 2.5-3.5 RECURRENT MYOCARDIAL INFARCTION 2.5-3.5 ID Date Data Source [id number] 06/23/2020 09:11:00 AM EST [facility] ([facility]) Name Value Range Interpretation Code Description Data Elizabeth rce(s) Supporting Document(s) Blood Urea Nitrogen 17 mg/dL 7-18 [facility] ([facility]) Glucose, Fasting 115 mg/dL 70-100 [facility] ([facility]) Creatinine For GFR 1.24 mg/dL 0.55-1.30 [facility] ([facility]) Glomerular Filtration Rate 44.9 [facility] ([facility]) <content>Units are mL/min/1.73 m2</content>
<content></content>
<content>Chronic Kidney Disease Staging per NKF:</content>
<content></content>
<content>Stage I & II GFR >=60 Normal to Mildly Decreased</content>
<content>Stage III GFR 30- 59 Moderately Decreased</content>
<content>Stage IV GFR 15-29 Severely Decreased</content>
<content>Stage V GFR <15 Very Little GFR Left</content>
<content>ESRD GFR <[address] [place]</content>
<content></content> Sodium Level 139 meq/L 136-145 [facility] ([facility]) Chloride Level 107 meq/L 98-107 [facility] ([facility]) Potassium Serum 5.2 meq/L 3.5-5.1 [facility] ([facility]) Carbon Dioxide Level 28 meq/L 21-32 [facility] ([facility]) Anion Gap 4 meq/L 8-16 [facility]) Alt/SGPT 100 U/L 12-78 [facility] Ast/Sgot 60 U/L 7-37 [facility]) Calcium Level 9.5 mg/dL 8.8-10.2 [facility] ([facility]) Bilirubin,Total 0.7 mg/dL 0.2-1.0 [facility] ([facility]) Total Protein 6.9 GM/DL 6.4-8.2 [facility] ([facility]) Alkaline Phosphatase 134 U/L 45-117 [facility] ([facility]) Albumin/Globulin Ratio 1.2 1.2-2.2 [facility] ([facility]) Albumin 3.7 GM/DL 3.2-5.2 [facility]) ID Date Data Source [id number] 06/23/2020 09:11:00 AM EST [facility] ([facility]) Name Value Range Interpretation Code Description Data Elizabeth rce(s) Supporting Document(s) Red Blood Count 4.91 10 4.00-5.40 [facility] ([facility]) White Blood Count 8.8 10 4.0-10.0 [facility] Hematocrit 44.5 % 36.0-47.0 [facility] Mean Corpuscular Volume 90.6 fl 80.0-96.0 [facility] ([facility]) Hemoglobin 13.7 g/dL 12.0-15.5 [facility] Mean Corpuscular HGB Conc 30.8 g/dL 32.0-36.5 [facility] NT ([facility]) Mean Corpuscular Hemoglobin 27.9 pg 27.0-33.0 ME [facility] ([facility]) Nucleated Red Blood Cell % 0.0 % 0-0 [facility] ([facility]) Platelet Count, Automated 329 10 150-450 [facility] NT ([facility]) Red Cell Distribution Width 13.2 % 11.5-14.5 [facility] ([facility]) ID Date Data Source [id number] 06/23/2020 09:11:00 AM EST [facility] ([facility]) Name Value Range Interpretation Code Description Data Elizabeth rce(s) Supporting Document(s) Erythrocyte sedimentation rate by Westergren method 25 mm/hr 0-30 [facility] ([facility]) ID Date Data Source [id number] 06/23/2020 09:11:00 AM EST [facility] ([facility]) Name Value Range Interpretation Code Description Data Elizabeth rce(s) Supporting Document(s) Erythrocyte sedimentation rate by Westergren method 25 mm/hr 0-30 [facility] ([facility]) ID Date Data Source [id number] 06/23/2020 09:11:00 AM EST [facility] ([facility]) Name Value Range Interpretation Code Description Data Elizabeth rce(s) Supporting Document(s) White Blood Count 8.8 10 4.0-10.0 [facility] ([facility]) Hematocrit 44.5 % 36.0-47.0 [facility] ([facility]) Hemoglobin 13.7 g/dL 12.0-15.5 [facility] ([facility]) Red Blood Count 4.91 10 4.00-5.40 [facility] ([facility]) Mean Corpuscular Volume 90.6 fl 80.0-96.0 M EDENT ([facility]) Mean Corpuscular Hemoglobin 27.9 pg 27.0-33.0 [facility] ([facility]) Mean Corpuscular HGB Conc 30.8 g/dL 32.0-36.5 [facility] ([facility]) Nucleated Red Blood Cell % 0.0 % 0-0 MED E[facility] ([facility]) Red Cell Distribution Width 13.2 % 11.5-14.5 [facility] ([facility]) Platelet Count, Automated 329 10 150-450 [facility] ([facility]) ID Date Data Source [id number] 06/23/2020 09:11:00 AM EST [facility] ([facility]) Name Value Range Interpretation Code Description Data Elizabeth rce(s) Supporting Document(s) Glucose, Fasting 115 mg/dL 70-100 [facility] ([facility]) Blood Urea Nitrogen 17 mg/dL 7-18 [facility] ([facility]) Glomerular Filtration Rate 44.9 [facility] ([facility]) <content>Units are mL/min/1.73 m2</content>
<content></content>
<content>Chronic Kidney Disease Staging per NKF:</content>
<content></content>
<content>Stage I & II GFR >=60 Normal to Mildly Decreased</content>
<content>Stage III GFR 30- 59 Moderately Decreased</content>
<content>Stage IV GFR 15-29 Severely Decreased</content>
<content>Stage V GFR <15 Very Little GFR Left</content>
<content>ESRD GFR <[address]</content>
<content></content> Creatinine For GFR 1.24 mg/dL 0.55-1.30 [facility] ([facility]) Potassium Serum 5.2 meq/L 3.5-5.1 [facility] ([facility]) Sodium Level 139 meq/L 136-145 [facility] ([facility]) Chloride Level 107 meq/L 98-107 [facility] ([facility] Carbon Dioxide Level 28 meq/L 21-32 [facility] Calcium Level 9.5 mg/dL 8.8-10.2 [facility] ([facility]) Anion Gap 4 meq/L 8-16 [facility] ([facility]) Alt/SGPT 100 U/L 12-78 [facility] ([facility]) Ast/Sgot 60 U/L 7-37 [facility] ([facility]) Alkaline Phosphatase 134 U/L 45-117 [facility] ( [facility]) Albumin 3.7 GM/DL 3.2-5.2 [facility] ([facility]) Total Protein 6.9 GM/DL 6.4-8.2 [facility] ([facility]) Bilirubin,Total 0.7 mg/dL 0.2-1.0 [facility] ([facility]) Albumin/Globulin Ratio 1.2 1.2-2.2 [facility] ([facility]) ID Date Data Source [id number] 06/23/2020 09:11:00 AM EST [facility] ([facility]) Name Value Range Interpretation Code Description Data Elizabeth rce(s) Supporting Document(s) Prothrombin Time 18.2 s 12.5-14.3 [facility] ([facility]) Inr 1.48 [facility] ([facility]) THERAPUTIC HUMAN INR VALUES INDICATIONS NORMAL RANGES PROPHYLAXIS/TREATMENT OF: VENOUS THROMBOSIS 2.0-3.0 PULMONARY EMBOLISM 2.0-3.0 PREVENTION OF SYSTEMIC EMBOLISM FROM: TISSUE HEART VALVES 2.0-3.0 ACUTE MYOCARDIAL INFARCTION 2.0-3.0 VALVULAR HEART DISEASE 2.0-3.0 ATRIAL FIBRILLATION 2.0-3.0 MECHANICAL VALVES(HIGH RISK) 2.5-3.5 RECURRENT MYOCARDIAL INFARCTION 2.5-3.5 ID Date Data Source [id number] 05/13/2020 08:48:00 AM EDT [facility] ([facility]) Name Value Range Interpretation Code Description Data Elizabeth rce(s) Supporting Document(s) Thyrotropin [Units/volume] in Serum or Plasma by Detec tion limit <= 0.05 mIU/L 6.74 uIU/mL 0.36-3.74 [facility] ([facility] ) ID Date Data Source [id number] 05/13/2020 08:48:00 AM EDT [facility] ([facility]) Name Value Range Interpretation Code Description Data Elizabeth rce(s) Supporting Document(s) Glucose [Mass/volume] in Serum or Plasma 105 mg/dL 74-99 [facility] ([facility]) 100-125 mg/dL PRE-DIABETES/FASTING >126 mg/dL DIABETES/FASTING Urea nitrogen [Mass/volume] in Serum or Plasma 21 mg/dL 7-18 [facility] ([facility]) Sodium [Moles/volume] in Serum or Plasma 140 meq/L 136-145 [facility] ([facility]) Potassium [Moles/volume] in Serum or Plasma 4.1 meq/L 3.5-5.1 [facility] ([facility]) Creatinine 1.2 mg/dL 0.6-1.3 [facility] ([facility]) Carbon dioxide, total [Moles/volume] in Serum or Plasma 26 meq/L 21 -32 [facility] ([facility]) Calcium [Mass/volume] in Serum or Plasma 8.7 mg/dL 8.5-10.1 [facility] ([facility]) Chloride [Moles/volume] in Serum or Plasma 103 meq/L 98-107 [facility] ([facility]) Aspartate aminotransferase [Enzymatic activity/volume] in Serum or Plasma 34 U/L 15-37 [facility] ([facility] ) Total Bilirubin 0.9 mg/dL 0.2-1.0 [facility] ([facility]) Alkaline phosphatase isoenzyme [Units/volume] in Serum or Pl asma 116 mg/dL 46-116 [facility] ([facility]) Alanine aminotransferase [Enzymatic activity/volume] in Seru m or Plasma 59 U/L 12-78 [facility] ([facility]) Albumin [Mass/volume] in Serum or Plasma 3.7 g/dL 3.4-5.0 [facility] Glomerular filtration rate/1.73 sq M pre dicted among non-blacks [Volume Rate/Area] in Serum or Plasma by Creatinine-based formula (MDRD) 44 mL/min [facility] A/G Ratio 1.06 CALC 1.00-1.90 [facility] Proteinase 3 Ab [Units/volume] in Serum 7.2 g/dL 6.4-8.2 [facility] Glomerular filtration rate/1.73 sq M pre dicted among blacks [Volume Rate/Area] in Serum or Plasma by Creatinine-based formula (MDRD) 53 mL/min [facility] <content>CHRONIC KIDNEY DISEASE STAGING PER NKF</content>
<content></content>
<content>STAGE I & II GFR >= 60 NORMAL TO MILDLY DECREASED</content>
<content>STAGE III GFR 30-59 MODERATELY DECREASED</content>
<content>STAGE IV GFR 15-29 SEVERELY DECREASED</content>
<content>STAGE V GFR <15 VERY LITTLE GFR LEFT</content>
<content>ESRD GFR <[address] [place]</content>
<content></content> ID Date Data Source [id number] 05/13/2020 08:47:00 AM EDT [facility] ([facility]) Name Value Range Interpretation Code Description Data Elizabeth rce(s) Supporting Document(s) Leukocytes [#/volume] in Blood by Automated count 8.8 x10*3/UL 4.1-10 .9 [facility] Hematocrit [Volume Fraction] of Blood by Automated count 40.1 % 3 7.0-51.0 [facility] Hemoglobin [Mass/volume] in Blood 13.7 g/dL 12.0-18.0 [facility] ([facility]) Erythrocytes [#/volume] in Blood by Automated count 4.75 x10*6/UL 4.2 0-6.30 [facility] ([facility]) MCV 84.4 fL 80.0-97.0 [facility] MCH 29.0 pg 26.0-32.0 [facility] Erythrocyte distribution width [Ratio] by Automated count 13.2 % 11.6-13.7 [facility] ([facility]) MCHC 34.3 g/dL 31.0-38.0 [facility] Platelets [#/volume] in Blood by Automated count 338 x10*3/UL 140-440 [facility] ([facility]) MPV 7.6 FL 7.8-11.0 [facility] Lymph % 16.0 % 10.0-58.5 [facility] Mid % 4.3 % 1.7-9.3 [facility] Neut % 79.7 % 37.0-92.0 [facility] Lymph # 1.4 x10*3/UL 0.6-4.1 [facility] ([facility]) Neut # 7.0 x10*3/UL 2.0-7.8 [facility] ([facility]) Mid # 0.4 x10*3/UL 0.1-0.6 [facility] ([facility]) ID Date Data Source [id number] 05/08/2020 01:27:00 PM EDT [facility] ([facility]) Name Value Range Interpretation Code Description Data Elizabeth rce(s) Supporting Document(s) Laboratory test finding (navigational concept) [facility] ID Date Data Source [id number] 04/07/2020 11:59:00 AM EDT [facility] ([facility]) Name Value Range Interpretation Code Description Data Elizabeth rce(s) Supporting Document(s) Thyrotropin [Units/volume] in Serum or Plasma by Detec tion limit <= 0.05 mIU/L 1.02 uIU/mL 0.36-3.74 [facility] ([facility] ) ID Date Data Source [id number] 04/07/2020 11:59:00 AM EDT [facility] ([facility]) Name Value Range Interpretation Code Description Data Elizabeth rce(s) Supporting Document(s) Urea nitrogen [Mass/volume] in Serum or Plasma 18 mg/dL 7-18 [facility] ([facility]) Creatinine 1.3 mg/dL 0.6-1.3 [facility] ([facility]) Glucose [Mass/volume] in Serum or Plasma 106 mg/dL 74-99 [facility] ([facility]) 100-125 mg/dL PRE-DIABETES/FASTING >126 mg/dL DIABETES/FASTING Sodium [Moles/volume] in Serum or Plasma 140 meq/L 136-145 [facility] ([facility]) Chloride [Moles/volume] in Serum or Plasma 102 meq/L 98-107 [facility] ([facility]) Potassium [Moles/volume] in Serum or Plasma 5.1 meq/L 3.5-5.1 [facility] ([facility]) Carbon dioxide, total [Moles/volume] in Serum or Plasma 27 meq/L 21 -32 [facility] ([facility]) Calcium [Mass/volume] in Serum or Plasma 9.5 mg/dL 8.5-10.1 [facility] ([facility]) Alkaline phosphatase isoenzyme [Units/volume] in Serum or Pl asma 104 mg/dL 46-116 [facility] ([facility]) Aspartate aminotransferase [Enzymatic activity/volume] in Serum or Plasma 37 U/L 15-37 [facility] ([facility] ) Total Bilirubin 1.0 mg/dL 0.2-1.0 [facility] ([facility]) Alanine aminotransferase [Enzymatic activity/volume] in Seru m or Plasma 52 U/L 12-78 [facility] ([facility]) A/G Ratio 1.21 CALC 1.00-1.90 [facility]) Proteinase 3 Ab [Units/volume] in Serum 7.3 g/dL 6.4-8.2 [facility] ([facility]) Albumin [Mass/volume] in Serum or Plasma 4.0 g/dL 3.4-5.0 [facility] Glomerular filtration rate/1.73 sq M pre dicted among blacks [Volume Rate/Area] in Serum or Plasma by Creatinine-based formula (MDRD) 48 mL/min [facility] ([facility]) <content>CHRONIC KIDNEY DISEASE STAGING PER NKF</content>
<content></content>
<content>STAGE I & II GFR >= 60 NORMAL TO MILDLY DECREASED</content>
<content>STAGE III GFR 30-59 MODERATELY DECREASED</content>
<content>STAGE IV GFR 15-29 SEVERELY DECREASED</content>
<content>STAGE V GFR <15 VERY LITTLE GFR LEFT</content>
<content>ESRD GFR <[address] [place]</content>
<content></content> Glomerular filtration rate/1.73 sq M pre dicted among non-blacks [Volume Rate/Area] in Serum or Plasma by Creatinine-based formula (MDRD) 40 mL/min [facility] ([facility]) ID Date Data Source [id number] 04/07/2020 11:59:00 AM EDT [facility] Name Value Range Interpretation Code Description Data Elizabeth rce(s) Supporting Document(s) Magnesium 2.0 mg/dL 1.8-2.4 [facility] ID Date Data Source [id number] 04/07/2020 11:59:00 AM EDT [facility] ([facility]) Name Value Range Interpretation Code Description Data Elizabeth rce(s) Supporting Document(s) Leukocytes [#/volume] in Blood by Automated count 8.5 x10*3/UL 4.1-10 .9 [facility] ([facility]) Erythrocytes [#/volume] in Blood by Automated count 5.00 x10*6/UL 4.2 0-6.30 [facility] Hemoglobin [Mass/volume] in Blood 14.4 g/dL 12.0-18.0 [facility] ([facility]) Hematocrit [Volume Fraction] of Blood by Automated count 42.8 % 3 7.0-51.0 [facility] ([facility]) MCHC 33.8 g/dL 31.0-38.0 [facility] MCH 28.9 pg 26.0-32.0 [facility] MCV 85.5 fL 80.0-97.0 [facility] ([facility]) Platelets [#/volume] in Blood by Automated count 361 x10*3/UL 140-440 [facility] MPV 8.3 FL 7.8-11.0 [facility] ([facility]) Erythrocyte distribution width [Ratio] by Automated count 13.3 % 11.6-13.7 [facility] ([facility]) Lymph % 19.5 % 10.0-58.5 [facility] Mid % 5.7 % 1.7-9.3 [facility] Neut % 74.8 % 37.0-92.0 [facility] Mid # 0.5 x10*3/UL 0.1-0.6 [facility] ([facility]) Lymph # 1.6 x10*3/UL 0.6-4.1 [facility] ([facility]) Neut # 6.4 x10*3/UL 2.0-7.8 [facility] ([facility]) ID Date Data Source [id number] 03/04/2020 09:56:00 AM EDT [facility] ([facility]) Name Value Range Interpretation Code Description Data Elizabeth rce(s) Supporting Document(s) Glucose [Mass/volume] in Serum or Plasma 99 mg/dL 74-99 [facility] ([facility]) 100-125 mg/dL PRE-DIABETES/FASTING >126 mg/dL DIABETES/FASTING Creatinine 1.4 mg/dL 0.6-1.3 [facility] ([facility]) Urea nitrogen [Mass/volume] in Serum or Plasma 17 mg/dL 7-18 [facility] ([facility]) Chloride [Moles/volume] in Serum or Plasma 103 meq/L 98-107 [facility] ([facility]) Sodium [Moles/volume] in Serum or Plasma 140 meq/L 136-145 [facility] ([facility]) Potassium [Moles/volume] in Serum or Plasma 4.3 meq/L 3.5-5.1 [facility] ([facility]) Carbon dioxide, total [Moles/volume] in Serum or Plasma 26 meq/L 21 -32 [facility] ([facility]) Calcium [Mass/volume] in Serum or Plasma 8.2 mg/dL 8.5-10.1 [facility] ([facility]) NOTE: RESULT VERIFIED. Alkaline phosphatase isoenzyme [Units/volume] in Serum or Pl asma 115 mg/dL 46-116 [facility] ([facility]) Aspartate aminotransferase [Enzymatic activity/volume] in Serum or Plasma 32 U/L 15-37 [facility] ([facility] ) Total Bilirubin 0.8 mg/dL 0.2-1.0 [facility] ([facility]) Alanine aminotransferase [Enzymatic activity/volume] in Seru m or Plasma 47 U/L 12-78 [facility] ([facility]) Proteinase 3 Ab [Units/volume] in Serum 6.5 g/dL 6.4-8.2 [facility] ([facility]) Albumin [Mass/volume] in Serum or Plasma 3.4 g/dL 3.4-5.0 [facility] ([facility]) Glomerular filtration rate/1.73 sq M pre dicted among blacks [Volume Rate/Area] in Serum or Plasma by Creatinine-based formula (MDRD) 44 mL/min [facility] <content>CHRONIC KIDNEY DISEASE STAGING PER NKF</content>
<content></content>
<content>STAGE I & II GFR >= 60 NORMAL TO MILDLY DECREASED</content>
<content>STAGE III GFR 30-59 MODERATELY DECREASED</content>
<content>STAGE IV GFR 15-29 SEVERELY DECREASED</content>
<content>STAGE V GFR <15 VERY LITTLE GFR LEFT</content>
<content>ESRD GFR <[address] [place]</content>
<content></content> A/G Ratio 1.10 CALC 1.00-1.90 [facility] ([facility]) Glomerular filtration rate/1.73 sq M pre dicted among non-blacks [Volume Rate/Area] in Serum or Plasma by Creatinine-based formula (MDRD) 37 mL/min [facility] ID Date Data Source [id number] 03/04/2020 09:56:00 AM EDT [facility] ([facility] Name Value Range Interpretation Code Description Data Elizabeth rce(s) Supporting Document(s) Leukocytes [#/volume] in Blood by Automated count 12.6 x10*3/UL 4.1-1 0.9 [facility] ([facility] NOTE: CBC VERIFIED Erythrocytes [#/volume] in Blood by Automated count 4.45 x10*6/UL 4.2 0-6.30 [facility] Hemoglobin [Mass/volume] in Blood 12.8 g/dL 12.0-18.0 [facility] ([facility] MCV 84.7 fL 80.0-97.0 [facility] ([facility]) Hematocrit [Volume Fraction] of Blood by Automated count 37.7 % 3 7.0-51.0 [facility] MCHC 33.9 g/dL 31.0-38.0 [facility] ([facility]) Erythrocyte distribution width [Ratio] by Automated count 13.4 % 11.6-13.7 [facility] MCH 28.7 pg 26.0-32.0 [facility] ([facility]) Lymph % 10.9 % 10.0-58.5 [facility] ([facility]) Platelets [#/volume] in Blood by Automated count 411 x10*3/UL 140-440 [facility] MPV 8.0 FL 7.8-11.0 [facility] ([facility]) Mid % 3.3 % 1.7-9.3 [facility] ([facility]) Lymph # 1.3 x10*3/UL 0.6-4.1 [facility] ([facility]) Neut % 85.8 % 37.0-92.0 [facility] ([facility]) Neut # 10.8 x10*3/UL 2.0-7.8 [facility] ([facility]) Mid # 0.5 x10*3/UL 0.1-0.6 [facility] ([facility]) ID Date Data Source [id number] 02/25/2020 07:34:00 AM EDT [facility] ([facility]) Name Value Range Interpretation Code Description Data Elizabeth rce(s) Supporting Document(s) Alkaline phosphatase isoenzyme [Units/volume] in Serum or Pl asma 132 mg/dL 46-116 [facility] Total Bilirubin 0.8 mg/dL 0.2-1.0 [facility] ([facility]) Alanine aminotransferase [Enzymatic activity/volume] in Seru m or Plasma 107 U/L 12-78 [facility] ([facility]) NOTE: RESULT VERIFIED. Aspartate aminotransferase [Enzymatic activity/volume] in Serum or Plasma 63 U/L 15-37 [facility] ([facility] ) Albumin [Mass/volume] in Serum or Plasma 3.9 g/dL 3.4-5.0 [facility] ([facility]) A/G Ratio 1.26 CALC 1.00-1.90 [facility] ([facility]) Direct Bilirubin 0.2 mg/dL 0.0-0.2 [facility] ([facility]) Proteinase 3 Ab [Units/volume] in Serum 7.0 g/dL 6.4-8.2 [facility] ([facility]) ID Date Data Source [id number] 02/25/2020 07:34:00 AM EDT [facility] ([facility]) Name Value Range Interpretation Code Description Data Elizabeth rce(s) Supporting Document(s) Glucose [Mass/volume] in Serum or Plasma 128 mg/dL 74-99 [facility] ([facility]) 100-125 mg/dL PRE-DIABETES/FASTING >126 mg/dL DIABETES/FASTING Urea nitrogen [Mass/volume] in Serum or Plasma 17 mg/dL 7-18 [facility] ([facility]) Creatinine 1.4 mg/dL 0.6-1.3 [facility] ([facility]) Sodium [Moles/volume] in Serum or Plasma 143 meq/L 136-145 [facility] ([facility]) Potassium [Moles/volume] in Serum or Plasma 4.1 meq/L 3.5-5.1 [facility] ([facility]) Carbon dioxide, total [Moles/volume] in Serum or Plasma 27 meq/L 21 -32 [facility] ([facility]) Chloride [Moles/volume] in Serum or Plasma 105 meq/L 98-107 [facility] ([facility]) Calcium [Mass/volume] in Serum or Plasma 9.2 mg/dL 8.5-10.1 [facility] ([facility]) Glomerular filtration rate/1.73 sq M pre dicted among non-blacks [Volume Rate/Area] in Serum or Plasma by Creatinine-based formula (MDRD) 37 mL/min [facility] ([facility]) Glomerular filtration rate/1.73 sq M pre dicted among blacks [Volume Rate/Area] in Serum or Plasma by Creatinine-based formula (MDRD) 44 mL/min [facility] ([facility]) <content>CHRONIC KIDNEY DISEASE STAGING PER NKF</content>
<content></content>
<content>STAGE I & II GFR >= 60 NORMAL TO MILDLY DECREASED</content>
<content>STAGE III GFR 30-59 MODERATELY DECREASED</content>
<content>STAGE IV GFR 15-29 SEVERELY DECREASED</content>
<content>STAGE V GFR <15 VERY LITTLE GFR LEFT</content>
<content>ESRD GFR <[address] [place]</content>
<content></content> ID Date Data Source [id number] 02/25/2020 07:34:00 AM EDT [facility] ([facility] ) Name Value Range Interpretation Code Description Data Elizabeth rce(s) Supporting Document(s) Alkaline phosphatase isoenzyme [Units/volume] in Serum or Pl asma 132 mg/dL 46-116 [facility] ([facility]) Aspartate aminotransferase [Enzymatic activity/volume] in Serum or Plasma 63 U/L 15-37 [facility] ([facility]) Total Bilirubin 0.8 mg/dL 0.2-1.0 [facility] ([facility]) Albumin [Mass/volume] in Serum or Plasma 3.9 g/dL 3.4-5.0 [facility] ([facility]) Alanine aminotransferase [Enzymatic activity/volume] in Seru m or Plasma 107 U/L 12-78 [facility] ([facility]) NOTE: RESULT VERIFIED. Proteinase 3 Ab [Units/volume] in Serum 7.0 g/dL 6.4-8.2 [facility] ([facility] ) Laboratory test finding (navigational concept) 0.2 mg/dL 0.0-0.2 [facility] ([facility]) Albumin/Globulin [Mass Ratio] in Serum or Plasma 1.26 CALC 1.00-1.90 [facility] ([facility]) ID Date Data Source [id number] 02/25/2020 07:34:00 AM EDT [facility] ([facility]) Name Value Range Interpretation Code Description Data Elizabeth rce(s) Supporting Document(s) Glucose [Mass/volume] in Serum or Plasma 128 mg/dL 74-99 [facility] ([facility]) 100-125 mg/dL PRE-DIABETES/FASTING >126 mg/dL DIABETES/FASTING Urea nitrogen [Mass/volume] in Serum or Plasma 17 mg/dL 7-18 [facility] ([facility]) Creatinine [Mass/volume] in Serum or Plasma 1.4 mg/dL 0.6-1.3 [facility] ([facility]) Sodium [Moles/volume] in Serum or Plasma 143 meq/L 136-145 [facility] ([facility]) Chloride [Moles/volume] in Serum or Plasma 105 meq/L 98-107 [facility] ([facility] ) Carbon dioxide, total [Moles/volume] in Serum or Plasma 27 meq/L 21 -32 [facility] ([facility] ) Potassium [Moles/volume] in Serum or Plasma 4.1 meq/L 3.5-5.1 [facility] ([facility] ) Calcium [Mass/volume] in Serum or Plasma 9.2 mg/dL 8.5-10.1 [facility] ([facility]) Glomerular filtration rate/1.73 sq M pre dicted among blacks [Volume Rate/Area] in Serum or Plasma by Creatinine-based formula (MDRD) 44 mL/min [facility]) <content>CHRONIC KIDNEY DISEASE STAGING PER NKF</content>
<content></content>
<content>STAGE I & II GFR >= 60 NORMAL TO MILDLY DECREASED</content>
<content>STAGE III GFR 30-59 MODERATELY DECREASED</content>
<content>STAGE IV GFR 15-29 SEVERELY DECREASED</content>
<content>STAGE V GFR <15 VERY LITTLE GFR LEFT</content>
<content>ESRD GFR <[address] [place]</content>
<content></content>
<content></content> Glomerular filtration rate/1.73 sq M pre dicted among non-blacks [Volume Rate/Area] in Serum or Plasma by Creatinine-based formula (MDRD) 37 mL/min [facility]) ID Date Data Source [id number] 02/23/2020 08:15:00 AM EDT [facility] Name Value Range Interpretation Code Description Data Elizabeth rce(s) Supporting Document(s) SARS coronavirus 2 RNA [facility] This lab was ordered by [facility] and reported by [facility]. ID Date Data Source [id number] 02/20/2020 08:55:00 AM EDT [facility] Name Value Range Interpretation Code Description Data Elizabeth rce(s) Supporting Document(s) Hepatitis C Virus Rosi Index 0.1 INDEX [facility]) Negative Not infected with HCV, unless recent infection is suspected or other evidence exists to indicate HCV infection. Hepatitis B Surface Antigen Laboratory test result [facility] ([facility]) Hepatitis B Core Antibody Igm Laboratory test result [facility]) Hepatitis A Antibody Igm Laboratory test result [facility]) ID Date Data Source [id number] 02/20/2020 08:55:00 AM EDT [facility]) Name Value Range Interpretation Code Description Data Elizabeth rce(s) Supporting Document(s) Erythrocyte sedimentation rate by Westergren method 18 mm/hr 0-30 [facility] ([facility]) ID Date Data Source [id number] 02/20/2020 08:55:00 AM EDT [facility] ([facility]) Name Value Range Interpretation Code Description Data Elizabeth rce(s) Supporting Document(s) White Blood Count 8.7 10 4.0-10.0 [facility] ([facility]) Red Blood Count 5.04 10 4.00-5.40 [facility] ([facility]) Hematocrit 44.4 % 36.0-47.0 [facility] ([facility]) Hemoglobin 14.4 g/dL 12.0-15.5 [facility] ([facility]) Mean Corpuscular Volume 88.1 fl 80.0-96.0 [facility] ([facility]) Mean Corpuscular Hemoglobin 28.6 pg 27.0-33.0 [facility] ([facility]) Mean Corpuscular HGB Conc 32.4 g/dL 32.0-36.5 [facility] ([facility]) Nucleated Red Blood Cell % 0.0 % 0-0 [facility] ([facility]) Platelet Count, Automated 304 10 150-450 [facility] ([facility]) Red Cell Distribution Width 14.0 % 11.5-14.5 [facility] ([facility]) ID Date Data Source [id number] 02/20/2020 08:55:00 AM EDT [facility] ([facility]) Name Value Range Interpretation Code Description Data Elizabeth rce(s) Supporting Document(s) Blood Urea Nitrogen 15 mg/dL 7-18 [facility] ([facility]) Glucose, Fasting 108 mg/dL 70-100 [facility] ([facility]) Glomerular Filtration Rate 37.2 [facility] ([facility]) <content>Units are mL/min/1.73 m2</content>
<content></content>
<content>Chronic Kidney Disease Staging per NKF:</content>
<content></content>
<content>Stage I & II GFR >=60 Normal to Mildly Decreased</content>
<content>Stage III GFR 30-59 Moderately Decreased</content>
<content>Stage IV GFR 15-29 Severely Decreased</content>
<content>Stage V GFR <15 Very Little GFR Left</content>
<content>ESRD GFR <[address] [place]</content>
<content></content> Creatinine For GFR 1.46 mg/dL 0.55-1.30 [facility] ([facility]) Potassium Serum 3.8 meq/L 3.5-5.1 [facility] ([facility]) Chloride Level 108 meq/L 98-107 [facility] ([facility] Sodium Level 141 meq/L 136-145 [facility] ([facility]) Anion Gap 9 meq/L 8-16 [facility] ([facility]) Carbon Dioxide Level 24 meq/L 21-32 [facility] ([facility] Calcium Level 9.7 mg/dL 8.8-10.2 [facility] ([facility]) Ast/Sgot 66 U/L 7-37 [facility] ([facility]) Alt/SGPT 100 U/L 12-78 [facility] ([facility]) Alkaline Phosphatase 132 U/L 45-117 [facility] ([facility] Bilirubin,Total 0.6 mg/dL 0.2-1.0 [facility] ([facility]) Total Protein 7.0 GM/DL 6.4-8.2 [facility] ([facility] Albumin 3.8 GM/DL 3.2-5.2 [facility] ([facility]) Albumin/Globulin Ratio 1.2 1.2-2.2 [facility] ([facility]) ID Date Data Source [id number] 02/20/2020 08:55:00 AM EDT [facility] ([facility]) Name Value Range Interpretation Code Description Data Elizabeth rce(s) Supporting Document(s) Prothrombin Time 18.9 s 11.8-14.0 [facility] ([facility]) Inr 1.61 [facility] ([facility]) THERAPUTIC HUMAN INR VALUES INDICATIONS NORMAL RANGES PROPHYLAXIS/TREATMENT OF: VENOUS THROMBOSIS 2.0-3.0 PULMONARY EMBOLISM 2.0-3.0 PREVENTION OF SYSTEMIC EMBOLISM FROM: TISSUE HEART VALVES 2.0-3.0 ACUTE MYOCARDIAL INFARCTION 2.0-3.0 VALVULAR HEART DISEASE 2.0-3.0 ATRIAL FIBRILLATION 2.0-3.0 MECHANICAL VALVES(HIGH RISK) 2.5-3.5 RECURRENT MYOCARDIAL INFARCTION 2.5-3.5 ID Date Data Source [id number] 02/20/2020 08:55:00 AM EDT [facility] ([facility]) Name Value Range Interpretation Code Description Data Elizabeth rce(s) Supporting Document(s) Erythrocyte sedimentation rate by Westergren method 18 mm/hr 0-30 [facility] ([facility]) ID Date Data Source [id number] 02/20/2020 08:55:00 AM EDT [facility] ([facility]) Name Value Range Interpretation Code Description Data Elizabeth rce(s) Supporting Document(s) Red Blood Count 5.04 10 4.00-5.40 [facility] ([facility]) White Blood Count 8.7 10 4.0-10.0 [facility] ([facility] ) Mean Corpuscular Volume 88.1 fl 80.0-96.0 M EDENT ([facility]) Hemoglobin 14.4 g/dL 12.0-15.5 [facility] ([facility] ) Hematocrit 44.4 % 36.0-47.0 [facility] ([facility] ) Red Cell Distribution Width 14.0 % 11.5-14.5 [facility] ([facility]) Mean Corpuscular Hemoglobin 28.6 pg 27.0-33.0 [facility] Mean Corpuscular HGB Conc 32.4 g/dL 32.0-36.5 [facility] Platelet Count, Automated 304 10 150-450 [facility] ([facility]) Nucleated Red Blood Cell % 0.0 % 0-0 [facility] ([facility] ) ID Date Data Source [id number] 02/20/2020 08:55:00 AM EDT [facility] ([facility]) Name Value Range Interpretation Code Description Data Elizabeth rce(s) Supporting Document(s) Glucose, Fasting 108 mg/dL 70-100 [facility] ([facility]) Blood Urea Nitrogen 15 mg/dL 7-18 [facility]) Sodium Level 141 meq/L 136-145 [facility] ([facility]) Creatinine For GFR 1.46 mg/dL 0.55-1.30 [facility] ([facility]) Glomerular Filtration Rate 37.2 [facility] ([facility]) <content>Units are mL/min/1.73 m2</content>
<content></content>
<content>Chronic Kidney Disease Staging per NKF:</content>
<content></content>
<content>Stage I & II GFR >=60 Normal to Mildly Decreased</content>
<content>Stage III GFR 30-59 Moderately Decreased</content>
<content>Stage IV GFR 15-29 Severely Decreased</content>
<content>Stage V GFR <15 Very Little GFR Left</content>
<content>ESRD GFR <[address] [place]</content>
<content></content> Chloride Level 108 meq/L 98-107 [facility] ([facility]) Carbon Dioxide Level 24 meq/L 21-32 [facility] ([facility]) Potassium Serum 3.8 meq/L 3.5-5.1 [facility] ([facility]) Anion Gap 9 meq/L 8-16 [facility] ([facility]) Ast/Sgot 66 U/L 7-37 [facility] ([facility]) Calcium Level 9.7 mg/dL 8.8-10.2 [facility] ([facility]) Bilirubin,Total 0.6 mg/dL 0.2-1.0 [facility] ([facility]) Alt/SGPT 100 U/L 12-78 [facility] ([facility]) Alkaline Phosphatase 132 U/L 45-117 [facility] ([facility]) Albumin/Globulin Ratio 1.2 1.2-2.2 [facility] ([facility]) Albumin 3.8 GM/DL 3.2-5.2 [facility] ([facility]) Total Protein 7.0 GM/DL 6.4-8.2 [facility]) ID Date Data Source [id number] 02/20/2020 08:55:00 AM EDT [facility] ([facility]) Name Value Range Interpretation Code Description Data Elizabeth rce(s) Supporting Document(s) Prothrombin Time 18.9 s 11.8-14.0 [facility] ([facility]) Inr 1.61 [facility] ([facility] THERAPUTIC HUMAN INR VALUES INDICATIONS NORMAL RANGES PROPHYLAXIS/TREATMENT OF: VENOUS THROMBOSIS 2.0-3.0 PULMONARY EMBOLISM 2.0-3.0 PREVENTION OF SYSTEMIC EMBOLISM FROM: TISSUE HEART VALVES 2.0-3.0 ACUTE MYOCARDIAL INFARCTION 2.0-3.0 VALVULAR HEART DISEASE 2.0-3.0 ATRIAL FIBRILLATION 2.0-3.0 MECHANICAL VALVES(HIGH RISK) 2.5-3.5 RECURRENT MYOCARDIAL INFARCTION 2.5-3.5 ID Date Data Source [id number] 02/20/2020 08:13:00 AM EDT [facility] ([facility]) Name Value Range Interpretation Code Description Data Elizabeth rce(s) Supporting Document(s) Glucose [Mass/volume] in Serum or Plasma 106 mg/dL 74-99 [facility] ([facility]) 100-125 mg/dL PRE-DIABETES/FASTING >126 mg/dL DIABETES/FASTING Urea nitrogen [Mass/volume] in Serum or Plasma 14 mg/dL 7-18 [facility] ([facility]) Sodium [Moles/volume] in Serum or Plasma 144 meq/L 136-145 [facility] ([facility]) Creatinine 1.5 mg/dL 0.6-1.3 [facility] Potassium [Moles/volume] in Serum or Plasma 4.2 meq/L 3.5-5.1 [facility] ([facility]) Carbon dioxide, total [Moles/volume] in Serum or Plasma 24 meq/L 21 -32 [facility] ([facility]) Chloride [Moles/volume] in Serum or Plasma 106 meq/L 98-107 [facility] ([facility]) Calcium [Mass/volume] in Serum or Plasma 10.0 mg/dL 8.5-10.1 [facility] ([facility]) Glomerular filtration rate/1.73 sq M pre dicted among non-blacks [Volume Rate/Area] in Serum or Plasma by Creatinine-based formula (MDRD) 34 mL/min [facility] Glomerular filtration rate/1.73 sq M pre dicted among blacks [Volume Rate/Area] in Serum or Plasma by Creatinine-based formula (MDRD) 41 mL/min [facility] <content>CHRONIC KIDNEY DISEASE STAGING PER NKF</content>
<content></content>
<content>STAGE I & II GFR >= 60 NORMAL TO MILDLY DECREASED</content>
<content>STAGE III GFR 30-59 MODERATELY DECREASED</content>
<content>STAGE IV GFR 15-29 SEVERELY DECREASED</content>
<content>STAGE V GFR <15 VERY LITTLE GFR LEFT</content>
<content>ESRD GFR <[address] [place]</content>
<content></content> ID Date Data Source [id number] 02/11/2020 11:08:00 AM EDT [facility] ([facility] Name Value Range Interpretation Code Description Data Elizabeth rce(s) Supporting Document(s) Hemoglobin A1c/Hemoglobin.total in Blood 5.9 g/dL 4.8-5.6 [facility] ([facility]) Lab Result Notes: Pre-Diabetes 5.7 - 6.4 % Diabetes = or > 6.5% Glucose mean value [Mass/volume] in Blood Estimated fr om glycated hemoglobin 123 mg/dL 60-110 [facility] ([facility] ID Date Data Source [id number] 02/11/2020 11:08:00 AM EDT [facility] ([facility]) Name Value Range Interpretation Code Description Data Elizabeth rce(s) Supporting Document(s) Glucose [Mass/volume] in Serum or Plasma 96 mg/dL 74-99 [facility] ([facility]) 100-125 mg/dL PRE-DIABETES/FASTING >126 mg/dL DIABETES/FASTING Sodium [Moles/volume] in Serum or Plasma 142 meq/L 136-145 [facility] Urea nitrogen [Mass/volume] in Serum or Plasma 17 mg/dL 7-18 [facility] ([facility]) Creatinine 1.6 mg/dL 0.6-1.3 [facility] Potassium [Moles/volume] in Serum or Plasma 3.9 meq/L 3.5-5.1 [facility] ([facility]) Chloride [Moles/volume] in Serum or Plasma 103 meq/L 98-107 [facility] ([facility]) Carbon dioxide, total [Moles/volume] in Serum or Plasma 24 meq/L 21 -32 [facility] ([facility]) Glomerular filtration rate/1.73 sq M pre dicted among non-blacks [Volume Rate/Area] in Serum or Plasma by Creatinine-based formula (MDRD) 31 mL/min [facility] Glomerular filtration rate/1.73 sq M pre dicted among blacks [Volume Rate/Area] in Serum or Plasma by Creatinine-based formula (MDRD) 38 mL/min [facility] <content>CHRONIC KIDNEY DISEASE STAGING PER NKF</content>
<content></content>
<content>STAGE I & II GFR >= 60 NORMAL TO MILDLY DECREASED</content>
<content>STAGE III GFR 30-59 MODERATELY DECREASED</content>
<content>STAGE IV GFR 15-29 SEVERELY DECREASED</content>
<content>STAGE V GFR <15 VERY LITTLE GFR LEFT</content>
<content>ESRD GFR <[address] [place]</content>
<content></content> Calcium [Mass/volume] in Serum or Plasma 7.8 mg/dL 8.5-10.1 [facility] ([facility]) NOTE: RESULT VERIFIED. ID Date Data Source [id number] 02/11/2020 11:08:00 AM EDT [facility] ([facility]) Name Value Range Interpretation Code Description Data Elizabeth rce(s) Supporting Document(s) Erythrocytes [#/volume] in Blood by Automated count 4.89 x10*6/UL 4.2 0-6.30 [facility] ([facility]) Leukocytes [#/volume] in Blood by Automated count 8.7 x10*3/UL 4.1-10 .9 [facility] ([facility] Hematocrit [Volume Fraction] of Blood by Automated count 41.6 % 3 7.0-51.0 [facility] ([facility]) MCV 85.0 fL 80.0-97.0 [facility] Hemoglobin [Mass/volume] in Blood 13.9 g/dL 12.0-18.0 [facility] ([facility] Erythrocyte distribution width [Ratio] by Automated count 13.3 % 11.6-13.7 [facility] ([facility]) MCH 28.5 pg 26.0-32.0 [facility] MCHC 33.5 g/dL 31.0-38.0 [facility] MPV 8.1 FL 7.8-11.0 [facility] Lymph % 17.7 % 10.0-58.5 [facility] ([facility]) Platelets [#/volume] in Blood by Automated count 339 x10*3/UL 140-440 [facility] ([facility]) Mid % 5.6 % 1.7-9.3 [facility] Neut % 76.7 % 37.0-92.0 [facility] ([facility]) Lymph # 1.5 x10*3/UL 0.6-4.1 [facility] ([facility]) Mid # 0.5 x10*3/UL 0.1-0.6 [facility] ([facility]) Neut # 6.7 x10*3/UL 2.0-7.8 [facility] ([facility]) ID Date Data Source [id number] 01/16/2020 10:39:00 AM EDT [facility] ([facility]) Name Value Range Interpretation Code Description Data Elizabeth rce(s) Supporting Document(s) Laboratory test finding (navigational concept) Laboratory test result [facility] ([facility]) ID Date Data Source [id number] 01/08/2020 10:52:00 AM EDT [facility] ([facility]) Name Value Range Interpretation Code Description Data Elizabeth rce(s) Supporting Document(s) Glucose [Mass/volume] in Serum or Plasma 130 mg/dL 74-99 [facility] ([facility]) 100-125 mg/dL PRE-DIABETES/FASTING >126 mg/dL DIABETES/FASTING Creatinine 1.1 mg/dL 0.6-1.3 [facility] ([facility]) Sodium [Moles/volume] in Serum or Plasma 144 meq/L 136-145 [facility] ([facility]) Urea nitrogen [Mass/volume] in Serum or Plasma 15 mg/dL 7-18 [facility] ([facility]) Carbon dioxide, total [Moles/volume] in Serum or Plasma 27 meq/L 21 -32 [facility] ([facility]) Potassium [Moles/volume] in Serum or Plasma 5.2 meq/L 3.5-5.1 [facility] ([facility]) NOTE: RESULT VERIFIED. NO VISIBLE HEMOLYSIS. Chloride [Moles/volume] in Serum or Plasma 106 meq/L 98-107 [facility] ([facility]) Glomerular filtration rate/1.73 sq M pre dicted among blacks [Volume Rate/Area] in Serum or Plasma by Creatinine-based formula (MDRD) 59 mL/min [facility] ([facility]) <content>CHRONIC KIDNEY DISEASE STAGING PER NKF</content>
<content></content>
<content>STAGE I & II GFR >= 60 NORMAL TO MILDLY DECREASED</content>
<content>STAGE III GFR 30-59 MODERATELY DECREASED</content>
<content>STAGE IV GFR 15-29 SEVERELY DECREASED</content>
<content>STAGE V GFR <15 VERY LITTLE GFR LEFT</content>
<content>ESRD GFR <[address] [place]</content>
<content></content> Glomerular filtration rate/1.73 sq M pre dicted among non-blacks [Volume Rate/Area] in Serum or Plasma by Creatinine-based formula (MDRD) 48 mL/min [facility] ([facility] Calcium [Mass/volume] in Serum or Plasma 9.4 mg/dL 8.5-10.1 [facility] ([facility]) ID Date Data Source [id number] 01/01/2020 07:43:00 AM EDT [facility] ([facility]) Name Value Range Interpretation Code Description Data Elizabeth rce(s) Supporting Document(s) Calcidiol [Mass/volume] in Serum or Plasma 44.6 24.0-80.0 [facility] ([facility]) This test was performed using FastPack I P Vitamin D immunoassay kit. Values obtained with different assay methods should not be used interchangeably. ID Date Data Source [id number] 01/01/2020 07:42:00 AM EDT [facility] Name Value Range Interpretation Code Description Data Elizabeth rce(s) Supporting Document(s) Glucose [Mass/volume] in Serum or Plasma 153 mg/dL 74-99 [facility] ([facility]) 100-125 mg/dL PRE-DIABETES/FASTING >126 mg/dL DIABETES/FASTING Urea nitrogen [Mass/volume] in Serum or Plasma 17 mg/dL 7-18 [facility] ([facility]) Sodium [Moles/volume] in Serum or Plasma 144 meq/L 136-145 [facility] ([facility]) Creatinine 1.2 mg/dL 0.6-1.3 [facility] ([facility]) Chloride [Moles/volume] in Serum or Plasma 105 meq/L 98-107 [facility] ([facility]) Carbon dioxide, total [Moles/volume] in Serum or Plasma 28 meq/L 21 -32 [facility] ([facility]) Potassium [Moles/volume] in Serum or Plasma 4.2 meq/L 3.5-5.1 [facility] ([facility]) Glomerular filtration rate/1.73 sq M pre dicted among blacks [Volume Rate/Area] in Serum or Plasma by Creatinine-based formula (MDRD) 53 mL/min [facility] ([facility]) <content>CHRONIC KIDNEY DISEASE STAGING PER NKF</content>
<content></content>
<content>STAGE I & II GFR >= 60 NORMAL TO MILDLY DECREASED</content>
<content>STAGE III GFR 30-59 MODERATELY DECREASED</content>
<content>STAGE IV GFR 15-29 SEVERELY DECREASED</content>
<content>STAGE V GFR <15 VERY LITTLE GFR LEFT</content>
<content>ESRD GFR <[address] [place]</content>
<content></content> Calcium [Mass/volume] in Serum or Plasma 9.5 mg/dL 8.5-10.1 [facility] ([facility] Glomerular filtration rate/1.73 sq M pre dicted among non-blacks [Volume Rate/Area] in Serum or Plasma by Creatinine-based formula (MDRD) 44 mL/min [facility] ([facility]) ID Date Data Source [id number] 01/01/2020 07:42:00 AM EDT [facility] Name Value Range Interpretation Code Description Data Elizabeth rce(s) Supporting Document(s) Leukocytes [#/volume] in Blood by Automated count 7.3 x10*3/UL 4.1-10 .9 [facility] ([facility]) MCV 83.8 fL 80.0-97.0 [facility]) Hematocrit [Volume Fraction] of Blood by Automated count 44.4 % 3 7.0-51.0 [facility] ([facility] Hemoglobin [Mass/volume] in Blood 14.9 g/dL 12.0-18.0 [facility] Erythrocytes [#/volume] in Blood by Automated count 5.29 x10*6/UL 4.2 0-6.30 [facility] ([facility]) MCHC 33.6 g/dL 31.0-38.0 [facility] ([facility]) MCH 28.1 pg 26.0-32.0 [facility] ([facility]) Erythrocyte distribution width [Ratio] by Automated count 13.3 % 11.6-13.7 [facility] ([facility]) MPV 8.0 FL 7.8-11.0 [facility] Platelets [#/volume] in Blood by Automated count 350 x10*3/UL 140-440 [facility] ([facility]) Lymph % 18.6 % 10.0-58.5 [facility] Lymph # 1.3 x10*3/UL 0.6-4.1 [facility] ([facility]) Mid % 4.6 % 1.7-9.3 [facility] Neut % 76.8 % 37.0-92.0 [facility] Mid # 0.4 x10*3/UL 0.1-0.6 [facility] ([facility]) Neut # 5.6 x10*3/UL 2.0-7.8 [facility] ([facility]) ID Date Data Source [id number] 12/28/2019 08:55:00 AM EDT [facility] ([facility]) Name Value Range Interpretation Code Description Data Elizabeth rce(s) Supporting Document(s) Laboratory test finding (navigational concept) Laboratory test result [facility] ([facility]) ID Date Data Source [id number] 11/27/2019 12:00:00 AM EDT [facility] oly Imaging Tonja Cardenas MD Patient Name: SANTOSH [id number] [facility] Date of : Floor Date of Exam: 11/27/2019[place] Resendez [id number]#: Fax: [phone] EXAM: THORACIC SPINE (3 VIEW) [...] rce(s) Supporting Document(s) ID Date Data Source [id number] 11/19/2019 10:04:00 AM EDT [facility] ([facility]) Name Value Range Interpretation Code Description Data Elizabeth rce(s) Supporting Document(s) Glucose, Fasting 144 mg/dL 70-100 [facility] ([facility]) Glomerular Filtration Rate 47.5 [facility] ([facility]) <content>Units are mL/min/1.73 m2</content>
<content></content>
<content>Chronic Kidney Disease Staging per NKF:</content>
<content></content>
<content>Stage I & II GFR >=60 Normal to Mildly Decreased</content>
<content>Stage III GFR 30- 59 Moderately Decreased</content>
<content>Stage IV GFR 15-29 Severely Decreased</content>
<content>Stage V GFR <15 Very Little GFR Left</content>
<content>ESRD GFR <[address] [place]</content>
<content></content> Creatinine For GFR 1.18 mg/dL 0.55-1.30 [facility] ([facility]) Blood Urea Nitrogen 21 mg/dL 7-18 [facility] ([facility]) Sodium Level 141 meq/L 136-145 [facility] ([facility]) Potassium Serum 3.6 meq/L 3.5-5.1 [facility] ([facility]) Chloride Level 108 meq/L 98-107 [facility] ([facility]) Carbon Dioxide Level 27 meq/L 21-32 [facility] ([facility]) Anion Gap 6 meq/L 8-16 [facility]) Calcium Level 9.0 mg/dL 8.8-10.2 [facility] ([facility]) ID Date Data Source [id number] 11/19/2019 10:04:00 AM EDT [facility] ([facility]) Name Value Range Interpretation Code Description Data Elizabeth rce(s) Supporting Document(s) CPK Creatine Phosphokinase 33 U/L 26-192 [facility] ([facility]) CK-MB Value Mass Laboratory test result [facility] MB/CK Relative Index 3.03 [facility] ([facility]) <content>DIAGNOSIS CRITERIA</content>
<content>MMB ng/ml Relative Index (RI)</content>
<content>NON-AMI < or = 5 N/A</content>
<content>HUIZAR ZONE > 5 < or = 4</content>
<content>AMI > 5 > 4</content>
<content></content> Troponin I Laboratory test result [facility] ([facility]) <content>Troponin I Reference Interval f or Siemens Basalt LOCI:</content>
<content></content>
<content>99th Percentile= 0.00-0.045 ng/ml</content>
<content></content>
<content>Risk Stratification:</content>
<content><= 0.10 ng/ml Decreased Risk for Adverse Clinical</content>
<content>Events.</content>
<content>0.10-1.50 ng/ml Increased Risk for Adverse Clinical</content>
<content>Events. Evaluation of additional</content>
<content>criterion and/or repeat testing in 2-6</content>
<content>hours is suggested to rule out myocardial</content>
<content>damage.</content>
<content>>= 1.50 ng/ml Indicative of Myocardial Injury.</content>
<content></content> ID Date Data Source [id number] 11/19/2019 10:04:00 AM EDT [facility] ([facility]) Name Value Range Interpretation Code Description Data Elizabeth rce(s) Supporting Document(s) White Blood Count 8.4 10 4.0-10.0 [facility] ([facility]) Hemoglobin 14.3 g/dL 12.0-15.5 [facility] Red Blood Count 5.08 10 4.00-5.40 [facility] ([facility]) Hematocrit 44.8 % 36.0-47.0 [facility] ([facility]) Mean Corpuscular Hemoglobin 28.1 pg 27.0-33.0 [facility] ([facility]) Mean Corpuscular HGB Conc 31.9 g/dL 32.0-36.5 [facility] ([facility]) Mean Corpuscular Volume 88.2 fl 80.0-96.0 [facility] ([facility]) Platelet Count, Automated 299 10 150-450 [facility] ([facility]) Red Cell Distribution Width 13.7 % 11.5-14.5 [facility] ([facility]) Neutrophils % 69.6 % 36.0-66.0 [facility] ([facility]) Lymph % 13.8 % 24.0-44.0 [facility]) Grand % 7.6 % 0.0-5.0 [facility]) Eos % 7.2 % 0.0-3.0 [facility]) Baso % 1.4 % 0.0-1.0 [facility]) Immature Granulocyte % 0.4 % 0-3.0 [facility] ([facility]) Nucleated Red Blood Cell % 0.0 % 0-0 [facility] ([facility]) Grand # 0.6 10 0.0-0.8 [facility]) Lymph # 1.2 10 1.5-5.0 [facility] Neutrophils # 5.8 10 1.5-8.5 [facility] ([facility]) Baso # 0.1 10 0.0-0.2 [facility] Eos # 0.6 10 0.0-0.5 [facility] ID Date Data Source [id number] 11/07/2019 08:21:00 AM EDT [facility] ([facility]) Name Value Range Interpretation Code Description Data Elizabeth rce(s) Supporting Document(s) Hemoglobin A1c/Hemoglobin.total in Blood 5.7 g/dL 4.8-5.6 [facility] ([facility]) Lab Result Notes: Pre-Diabetes 5.7 - 6.4 % Diabetes = or > 6.5% Glucose mean value [Mass/volume] in Blood Estimated fr om glycated hemoglobin 117 mg/dL 60-110 [facility] ([facility] ) ID Date Data Source [id number] 11/07/2019 08:21:00 AM EDT [facility] ([facility]) Name Value Range Interpretation Code Description Data Elizabeth rce(s) Supporting Document(s) Leukocytes [#/volume] in Blood by Automated count 9.5 x10*3/UL 4.1-10 .9 [facility] ([facility]) Erythrocytes [#/volume] in Blood by Automated count 5.44 x10*6/UL 4.2 0-6.30 [facility] ([facility]) Hemoglobin [Mass/volume] in Blood 15.1 g/dL 12.0-18.0 [facility] ([facility]) Hematocrit [Volume Fraction] of Blood by Automated count 45.1 % 3 7.0-51.0 [facility] ([facility]) MCV 82.9 fL 80.0-97.0 [facility] MCHC 33.5 g/dL 31.0-38.0 [facility] MCH 27.8 pg 26.0-32.0 [facility] Platelets [#/volume] in Blood by Automated count 337 x10*3/UL 140-440 [facility] ([facility]) Erythrocyte distribution width [Ratio] by Automated count 13.2 % 11.6-13.7 [facility] ([facility]) MPV 8.4 FL 7.8-11.0 [facility] Neut % 77.1 % 37.0-92.0 [facility] Mid % 4.6 % 1.7-9.3 [facility] Lymph % 18.3 % 10.0-58.5 [facility] Neut # 7.3 x10*3/UL 2.0-7.8 [facility] ([facility]) Lymph # 1.7 x10*3/UL 0.6-4.1 [facility] ([facility]) Mid # 0.5 x10*3/UL 0.1-0.6 [facility] ([facility]) ID Date Data Source [id number] 11/07/2019 08:21:00 AM EDT [facility] ([facility]) Name Value Range Interpretation Code Description Data Elizabeth rce(s) Supporting Document(s) Hemoglobin A1c/Hemoglobin.total in Blood <pending> [facility] ([facility]) ID Date Data Source [id number] 10/24/2019 09:34:00 AM EDT [facility] ([facility]) Name Value Range Interpretation Code Description Data Elizabeth rce(s) Supporting Document(s) Leukocytes [#/volume] in Blood by Automated count 8.6 x10*3/UL 4.1-10 .9 [facility] ([facility]) Erythrocytes [#/volume] in Blood by Automated count 4.87 x10*6/UL 4.2 0-6.30 [facility] ([facility]) Hemoglobin [Mass/volume] in Blood 13.6 g/dL 12.0-18.0 [facility] ([facility]) MCV 83.0 fL 80.0-97.0 [facility] Hematocrit [Volume Fraction] of Blood by Automated count 40.4 % 3 7.0-51.0 [facility] ([facility]) MCH 27.9 pg 26.0-32.0 [facility]) MCHC 33.6 g/dL 31.0-38.0 [facility]) Erythrocyte distribution width [Ratio] by Automated count 12.7 % 11.6-13.7 [facility] ([facility]) Platelets [#/volume] in Blood by Automated count 362 x10*3/UL 140-440 [facility] ([facility]) MPV 7.9 FL 7.8-11.0 [facility]) Mid % 3.8 % 1.7-9.3 [facility] Lymph % 14.9 % 10.0-58.5 [facility] ([facility]) Mid # 0.5 x10*3/UL 0.1-0.6 [facility] ([facility]) Neut % 81.3 % 37.0-92.0 [facility] Lymph # 1.2 x10*3/UL 0.6-4.1 [facility] ([facility]) Neut # 6.9 x10*3/UL 2.0-7.8 [facility] ([facility]) ID Date Data Source [id number] 10/18/2019 10:59:00 AM EST [facility] ([facility]) Name Value Range Interpretation Code Description Data Elizabeth rce(s) Supporting Document(s) C reactive protein [Mass/volume] in Serum or Plasma by High sensitivity method 3.36 mg/dL 0.00-0.30 [facility] ([facility] ) ID Date Data Source [id number] 10/18/2019 10:58:00 AM EST [facility] ([facility]) Name Value Range Interpretation Code Description Data Elizabeth rce(s) Supporting Document(s) Erythrocyte sedimentation rate by Westergren method 34 mm/hr 0-15 [facility] ([facility]) ID Date Data Source [id number] 10/18/2019 10:58:00 AM EST [facility] ([facility]) Name Value Range Interpretation Code Description Data Elizabeth rce(s) Supporting Document(s) Leukocytes [#/volume] in Blood by Automated count 9.3 x10*3/UL 4.1-10 .9 [facility] ([facility]) Erythrocytes [#/volume] in Blood by Automated count 4.75 x10*6/UL 4.2 0-6.30 [facility] ([facility]) MCV 83.6 fL 80.0-97.0 [facility]) Hematocrit [Volume Fraction] of Blood by Automated count 39.7 % 3 7.0-51.0 [facility] ([facility]) Hemoglobin [Mass/volume] in Blood 13.4 g/dL 12.0-18.0 [facility] ([facility]) MCH 28.3 pg 26.0-32.0 [facility]) MCHC 33.9 g/dL 31.0-38.0 [facility] ([facility]) Platelets [#/volume] in Blood by Automated count 279 x10*3/UL 140-440 [facility] Erythrocyte distribution width [Ratio] by Automated count 13.0 % 11.6-13.7 [facility] ([facility]) Lymph % 12.2 % 10.0-58.5 [facility] Mid % 3.6 % 1.7-9.3 [facility] ([facility]) MPV 8.2 FL 7.8-11.0 [facility] ([facility]) Mid # 0.4 x10*3/UL 0.1-0.6 [facility] ([facility]) Neut % 84.2 % 37.0-92.0 [facility]) Lymph # 1.1 x10*3/UL 0.6-4.1 [facility] ([facility]) Neut # 7.8 x10*3/UL 2.0-7.8 [facility] ([facility]) ID Date Data Source [id number] 10/17/2019 12:21:00 PM EST [facility] ([facility]) Name Value Range Interpretation Code Description Data Elizabeth rce(s) Supporting Document(s) C reactive protein [Mass/volume] in Serum or Plasma by High sensitivity method 3.02 mg/dL 0.00-0.30 [facility] ([facility] ) Fibrin D-dimer FEU [Mass/volume] in Platelet poor plasma 3962.33 ng/m L [facility] ([facility]) ID Date Data Source [id number] 10/17/2019 12:20:00 PM EST [facility] ([facility]) Name Value Range Interpretation Code Description Data Elizabeth rce(s) Supporting Document(s) Erythrocyte sedimentation rate by Westergren method 32 mm/hr 0-15 [facility] ([facility]) ID Date Data Source [id number] 10/17/2019 12:20:00 PM EST [facility] ([facility]) Name Value Range Interpretation Code Description Data Elizabeth rce(s) Supporting Document(s) Hemoglobin [Mass/volume] in Blood 14.2 g/dL 12.0-18.0 [facility] ([facility]) Erythrocytes [#/volume] in Blood by Automated count 5.02 x10*6/UL 4.2 0-6.30 [facility] ([facility]) Leukocytes [#/volume] in Blood by Automated count 13.9 x10*3/UL 4.1-1 0.9 [facility] ([facility]) NOTE: RESULT VERIFIED. Hematocrit [Volume Fraction] of Blood by Automated count 42.1 % 3 7.0-51.0 [facility] ([facility]) MCV 83.8 fL 80.0-97.0 [facility] ([facility]) MCH 28.3 pg 26.0-32.0 [facility] ([facility]) MCHC 33.7 g/dL 31.0-38.0 [facility] ([facility]) Platelets [#/volume] in Blood by Automated count 308 x10*3/UL 140-440 [facility] ([facility]) Lymphocytes/100 leukocytes in Blood by Automated count 10.2 % 10. 0-58.5 [facility] ([facility]) Platelet mean volume [Entitic volume] in Blood by Hebert 8.5 FL 7.8-11.0 [facility] ([facility]) Erythrocyte distribution width [Ratio] by Automated count 12.9 % 11.6-13.7 [facility] ([facility]) Mid # 0.4 x10*3/UL 0.1-0.6 [facility] ([facility]) Mid % 2.8 % 1.7-9.3 [facility] ([facility]) Lymph # 1.4 x10*3/UL 0.6-4.1 [facility] ([facility]) Neut % 87.0 % 37.0-92.0 [facility] ([facility]) Neutrophils [#/volume] in Semen by Manual count 12.1 x10*3/UL 2.0-7.8 [facility] ([facility]) ID Date Data Source [id number] 10/17/2019 12:20:00 PM EST [facility] ([facility]) Name Value Range Interpretation Code Description Data Elizabeth rce(s) Supporting Document(s) Leukocytes [#/volume] in Blood by Automated count 13.9 x10*3/UL 4.1-1 0.9 [facility] ([facility]) NOTE: RESULT VERIFIED. Erythrocytes [#/volume] in Blood by Automated count 5.02 x10*6/UL 4.2 0-6.30 [facility] ([facility]) Hematocrit [Volume Fraction] of Blood by Automated count 42.1 % 3 7.0-51.0 [facility] ([facility]) Hemoglobin [Mass/volume] in Blood 14.2 g/dL 12.0-18.0 [facility] ([facility]) MCV 83.8 fL 80.0-97.0 [facility] MCH 28.3 pg 26.0-32.0 [facility] Erythrocyte distribution width [Ratio] by Automated count 12.9 % 11.6-13.7 [facility] ([facility]) MCHC 33.7 g/dL 31.0-38.0 [facility] Platelets [#/volume] in Blood by Automated count 308 x10*3/UL 140-440 [facility] ([facility]) Lymph % 10.2 % 10.0-58.5 [facility] Mid % 2.8 % 1.7-9.3 [facility] MPV 8.5 FL 7.8-11.0 [facility] Neut % 87.0 % 37.0-92.0 [facility] Mid # 0.4 x10*3/UL 0.1-0.6 [facility] ([facility]) Lymph # 1.4 x10*3/UL 0.6-4.1 [facility] ([facility]) Neut # 12.1 x10*3/UL 2.0-7.8 [facility] ([facility]) ID Date Data Source [id number] 10/17/2019 12:20:00 PM EST [facility] ([facility]) Name Value Range Interpretation Code Description Data Elizabeth rce(s) Supporting Document(s) Erythrocyte sedimentation rate by Westergren method 32 mm/hr 0-15 [facility] ([facility]) ID Date Data Source [id number] 10/16/2019 12:00:00 AM EST [facility] Veronica De Los Santos DO Patient Name: SANTOSH [id number] [facility] Date of : 1945[address] Date [facility] Exam: [facility]/2019[facility] [id number]#: Fax: [phone] EXAM: US EXTREMITY VEINS, UNILATERALCLINICAL [...] extremity femoral andpopliteal venous system.Accredited by the [place] in Vascular PeripheralUltrasound.DIANE Kaplan/Alvarado you for referring SANTOSH COOK to our office. Electronically Signed - MENDEZ HUIZAR MD 10/17/19 10:57 Name Value Range Interpretation Code Description Data Elizabeth rce(s) Supporting Document(s) ID Date Data Source [id number] 09/27/2019 09:36:00 AM EST MEDENT ([facility]) Name Value Range Interpretation Code Description Data Elizabeth rce(s) Supporting Document(s) Glucose, Fasting 106 mg/dL 70-100 [facility] ([facility]) Creatinine For GFR 1.15 mg/dL 0.55-1.30 [facility] ([facility]) Glomerular Filtration Rate 49.1 MED ENT ([facility]) <content>Units are mL/min/1.73 m2</content>
<content></content>
<content>Chronic Kidney Disease Staging per NKF:</content>
<content></content>
<content>Stage I & II GFR >=60 Normal to Mildly Decreased</content>
<content>Stage III GFR 30- 59 Moderately Decreased</content>
<content>Stage IV GFR 15-29 Severely Decreased</content>
<content>Stage V GFR <15 Very Little GFR Left</content>
<content>ESRD GFR <[address]</content>
<content></content> Blood Urea Nitrogen 25 mg/dL 7-18 [facility] ([facility]) Sodium Level 144 meq/L 136-145 [facility] ([facility]) Potassium Serum 4.4 meq/L 3.5-5.1 [facility] ([facility]) Chloride Level 108 meq/L 98-107 [facility] ([facility] Carbon Dioxide Level 28 meq/L 21-32 [facility] ([facility]) Anion Gap 8 meq/L 8-16 [facility] Alt/SGPT 26 U/L 12-78 [facility] Ast/Sgot 13 U/L 7-37 [facility] ([place] [facility]) Calcium Level 9.3 mg/dL 8.8-10.2 [facility] Alkaline Phosphatase 120 U/L 45-117 [facility] ([facility]) Bilirubin,Total 0.6 mg/dL 0.2-1.0 [facility] ([facility] [facility]) Total Protein 6.9 GM/DL 6.4-8.2 [facility] ([facility] [facility]) Albumin 3.8 GM/DL 3.2-5.2 [facility] ([facility] Albumin/Globulin Ratio 1.23 1.00-1.93 SC DENT ([facility]) ID Date Data Source [id number] 09/27/2019 09:36:00 AM EST [facility] ([facility]) Name Value Range Interpretation Code Description Data Elizabeth rce(s) Supporting Document(s) Erythrocyte sedimentation rate by Westergren method 18 mm/hr 0-30 [facility] ([facility]) ID Date Data Source [id number] 09/27/2019 09:36:00 AM EST [facility] ([facility]) Name Value Range Interpretation Code Description Data Elizabeth rce(s) Supporting Document(s) White Blood Count 8.2 10 4.0-10.0 [facility] ([facility]) Red Blood Count 5.09 10 4.00-5.40 [facility] ([facility]) Hemoglobin 14.5 g/dL 12.0-15.5 [facility] ([facility] [facility] Hematocrit 45.4 % 36.0-47.0 [facility] ([facility] [facility]) Mean Corpuscular Hemoglobin 28.5 pg 27.0-33.0 [facility] ([facility] [facility]) Mean Corpuscular Volume 89.2 fl 80.0-96.0 M EDENT ([facility]) Platelet Count, Automated 305 10 150-450 [facility] ([facility]) Red Cell Distribution Width 13.3 % 11.5-14.5 [facility] ([facility]) Mean Corpuscular HGB Conc 31.9 g/dL 32.0-36.5 [facility] ([facility]) Nucleated Red Blood Cell % 0.0 % 0-0 MED ENT ([facility]) ID Date Data Source [id number] 09/27/2019 09:36:00 AM EST [facility] ([facility]) Name Value Range Interpretation Code Description Data Elizabeth rce(s) Supporting Document(s) Prothrombin Time 12.8 s 11.8-14.0 [facility] ([facility]) Inr 0.99 [facility] ([facility]) THERAPUTIC HUMAN INR VALUES INDICATIONS NORMAL RANGES PROPHYLAXIS/TREATMENT OF: VENOUS THROMBOSIS 2.0-3.0 PULMONARY EMBOLISM 2.0-3.0 PREVENTION OF SYSTEMIC EMBOLISM FROM: TISSUE HEART VALVES 2.0-3.0 ACUTE MYOCARDIAL INFARCTION 2.0-3.0 VALVULAR HEART DISEASE 2.0-3.0 ATRIAL FIBRILLATION 2.0-3.0 MECHANICAL VALVES(HIGH RISK) 2.5-3.5 RECURRENT MYOCARDIAL INFARCTION 2.5-3.5 ID Date Data Source [id number] 09/27/2019 09:36:00 AM EST [facility] ([facility]) Name Value Range Interpretation Code Description Data Elizabeth rce(s) Supporting Document(s) Prothrombin Time 12.8 s 11.8-14.0 [facility] ([facility]) Inr 0.99 [facility] ([facility] THERAPUTIC HUMAN INR VALUES INDICATIONS NORMAL RANGES PROPHYLAXIS/TREATMENT OF: VENOUS THROMBOSIS 2.0-3.0 PULMONARY EMBOLISM 2.0-3.0 PREVENTION OF SYSTEMIC EMBOLISM FROM: TISSUE HEART VALVES 2.0-3.0 ACUTE MYOCARDIAL INFARCTION 2.0-3.0 VALVULAR HEART DISEASE 2.0-3.0 ATRIAL FIBRILLATION 2.0-3.0 MECHANICAL VALVES(HIGH RISK) 2.5-3.5 RECURRENT MYOCARDIAL INFARCTION 2.5-3.5 ID Date Data Source [id number] 09/27/2019 09:36:00 AM EST [facility] ([facility]) Name Value Range Interpretation Code Description Data Elizabeth rce(s) Supporting Document(s) Creatinine For GFR 1.15 mg/dL 0.55-1.30 [facility] ([facility]) Glucose, Fasting 106 mg/dL 70-100 [facility] ([facility]) Glomerular Filtration Rate 49.1 MED E[facility] ([facility]) <content>Units are mL/min/1.73 m2</content>
<content></content>
<content>Chronic Kidney Disease Staging per NKF:</content>
<content></content>
<content>Stage I & II GFR >=60 Normal to Mildly Decreased</content>
<content>Stage III GFR 30- 59 Moderately Decreased</content>
<content>Stage IV GFR 15-29 Severely Decreased</content>
<content>Stage V GFR <15 Very Little GFR Left</content>
<content>ESRD GFR <[address] [place]</content>
<content></content> Blood Urea Nitrogen 25 mg/dL 7-18 [facility] ([facility]) Potassium Serum 4.4 meq/L 3.5-5.1 [facility] ([facility]) Chloride Level 108 meq/L 98-107 [facility] ([facility]) Sodium Level 144 meq/L 136-145 [facility] ([facility]) Anion Gap 8 meq/L 8-16 [facility] ([facility]) Carbon Dioxide Level 28 meq/L 21-32 [facility] ([facility] Calcium Level 9.3 mg/dL 8.8-10.2 [facility] ([facility]) Alkaline Phosphatase 120 U/L 45-117 [facility] ([facility]) Bilirubin,Total 0.6 mg/dL 0.2-1.0 [facility] ([facility]) Alt/SGPT 26 U/L 12-78 [facility] ([facility] Ast/Sgot 13 U/L 7-37 [facility] ([facility]) Albumin 3.8 GM/DL 3.2-5.2 [facility] ([facility]) Total Protein 6.9 GM/DL 6.4-8.2 [facility] ([facility]) Albumin/Globulin Ratio 1.23 1.00-1.93 [facility] ([facility]) ID Date Data Source [id number] 09/27/2019 09:36:00 AM EST [facility] ([facility]) Name Value Range Interpretation Code Description Data Elizabeth rce(s) Supporting Document(s) Erythrocyte sedimentation rate by Westergren method 18 mm/hr 0-30 [facility] ([facility]) ID Date Data Source [id number] 09/27/2019 09:36:00 AM EST [facility] ([facility]) Name Value Range Interpretation Code Description Data Elizabeth rce(s) Supporting Document(s) White Blood Count 8.2 10 4.0-10.0 MED[facility] ([facility]) Hematocrit 45.4 % 36.0-47.0 MED[facility] ([facility]) Hemoglobin 14.5 g/dL 12.0-15.5 MED[facility] ([facility]) Red Blood Count 5.09 10 4.00-5.40 [facility] ([facility]) Mean Corpuscular Volume 89.2 fl 80.0-96.0 [facility] ([facility]) Mean Corpuscular HGB Conc 31.9 g/dL 32.0-36.5 MEDE NT ([facility]) Mean Corpuscular Hemoglobin 28.5 pg 27.0-33.0 SC DENT ([facility]) Red Cell Distribution Width 13.3 % 11.5-14.5 SC DENT ([facility]) Nucleated Red Blood Cell % 0.0 % 0-0 MED ENT ([facility]) Platelet Count, Automated 305 10 150-450 MEDE NT ([facility]) ID Date Data Source [id number] 09/14/2019 12:00:00 AM EST [facility] Tonja Cardenas MD Patient Name: SANTOSH [id number] [facility] Date of : [address] Date of Exam: 09/14/2019[place] Resendez [id number]#: Fax: [phone] EXAM: MAMMO SCREENING WITH CADCLINICAL [...] mammogram was read with the assistance of Purnima FOX, an FDAapproved computer aided detection system for [...] rce(s) Supporting Document(s) ID Date Data Source [id number] 09/14/2019 10:12:00 AM EST [facility] ([facility]) Name Value Range Interpretation Code Description Data Elizabeth rce(s) Supporting Document(s) 3D Bi-Lateral Mammogram [facility]) Dexa/Bone Density Laboratory test result [facility] ([facility]) Procedure Vital Signs ID Date Data Source [id number] Name Value Range Interpretation Code Description Data Source(s) Body mass index (BMI) [Ratio] 29.6 kg/m2 29.6 k g/m2 [facility] ([facility]) Body weight 153.00 [lb_av] 153.00 [lb_av] MEDEN T ([facility]) Body height 60.25 [in_i] 60.25 [in_i] [facility] 5'0.25" Heart rate 96 /min 96 /min [facility] ([facility]) Diastolic blood pressure 68 mm[Hg] 68 mm[Hg] [facility] ([facility]) RT Arm Systolic blood pressure 106 mm[Hg] 106 mm[Hg] M EDENT ([facility]) RT Arm Respiratory rate 14 /min 14 /min [facility] ( [facility] Body mass index (BMI) [Ratio] 29.4 kg/m2 29.4 k g/m2 MEDENT ([facility]) Body weight 155.50 [lb_av] 155.50 [lb_av] MEDEN T ([facility]) Body height 61 [in_i] 61 [in_i] MED[facility] ([facility]) 5'1" Body temperature 96.8 [degF] 96.8 [degF] [facility] ([facility] Heart rate 75 /min 75 /min [facility] ([facility] Diastolic blood pressure 80 mm[Hg] 80 mm[Hg] [facility] ([facility]) Systolic blood pressure 124 mm[Hg] 124 mm[Hg] M EDENT ([facility]) Body height 60.25 [in_i] 60.25 [in_i] [facility] ([facility]) 5'0.25" Heart rate 94 /min 94 /min [facility] ([facility]) Diastolic blood pressure 72 mm[Hg] 72 mm[Hg] [facility] ([facility]) RT Arm Systolic blood pressure 122 mm[Hg] 122 mm[Hg] [facility] RT Arm Body mass index (BMI) [Ratio] 30.3 kg/m2 30.3 k g/m2 [facility] ([facility]) Oxygen saturation in Arterial blood by Pulse oximetry 99 % 99 % [facility] ([facility]) RM Air Body weight 156.50 [lb_av] 156.50 [lb_av] MEDEN T ([facility]) Body mass index (BMI) [Ratio] 30.0 kg/m2 30.0 k g/m2 [facility] ([facility]) Oxygen saturation in Arterial blood by Pulse oximetry --post exerci se 92 % 92 % [facility] ([facility]) RM Air Body weight 155.00 [lb_av] 155.00 [lb_av] MEDEN T ([facility]) Body height 60.25 [in_i] 60.25 [in_i] [facility] ([facility]) 5'0.25" Heart rate 117 /min 117 /min [facility] ([facility]) Diastolic blood pressure 70 mm[Hg] 70 mm[Hg] [facility] ([facility]) RT Arm Systolic blood pressure 132 mm[Hg] 132 mm[Hg] [facility] RT Arm Body mass index (BMI) [Ratio] 28.0 kg/m2 28.0 k g/m2 [facility] ([facility]) Body height 62 [in_i] 62 [in_i] MED[facility] ([facility]) 5'2" Body weight 153.00 [lb_av] 153.00 [lb_av] MEDEN T ([facility]) Body temperature 98.0 [degF] 98.0 [degF] [facility] ([facility]) Oxygen saturation in Arterial blood by Pulse oximetry 97 % 97 % [facility] ([facility], [facility]) Respiratory rate 18 /min 18 /min [facility] ( [facility], [facility]) Heart rate 90 /min 90 /min [facility] ([facility], [facility]) Diastolic blood pressure 68 mm[Hg] 68 mm[Hg] MED[facility] ([facility], [facility]) Systolic blood pressure 96 mm[Hg] 96 mm[Hg] M EDENT ([facility], [facility]) Body mass index (BMI) [Ratio] 28.5 kg/m2 28.5 k g/m2 [facility] ([facility] Body weight 149.50 [lb_av] 149.50 [lb_av] MEDEN T ([facility] ) Body height 60.75 [in_i] 60.75 [in_i] MED[facility] ([facility] ) 5'0.75" Body temperature 97.5 [degF] 97.5 [degF] [facility] ([facility] Body mass index (BMI) [Ratio] 29.7 kg/m2 29.7 k g/m2 [facility] ([facility]) Oxygen saturation in Arterial blood by Pulse oximetry --post exerci se 94 % 94 % [facility] ([facility]) RM Air Body weight 153.12 [lb_av] 153.12 [lb_av] MEDEN T ([facility]) Body height 60.25 [in_i] 60.25 [in_i] [facility] 5'0.25" Heart rate 87 /min 87 /min MED[facility] ([facility]) Diastolic blood pressure 60 mm[Hg] 60 mm[Hg] MED[facility] ([facility]) RT Arm Systolic blood pressure 92 mm[Hg] 92 mm[Hg] M EDENT ([facility]) RT Arm Body temperature 97.2 [degF] 97.2 [degF] [facility] ([facility] Body mass index (BMI) [Ratio] 31.6 kg/m2 31.6 k g/m2 [facility] ([facility]) Oxygen saturation in Arterial blood by Pulse oximetry --post exerci se 97 % 97 % [facility] ([facility]) RM Air Body weight 163.12 [lb_av] 163.12 [lb_av] MEDEN T ([facility]) Body height 60.25 [in_i] 60.25 [in_i] [facility] ([facility]) 5'0.25" Heart rate 76 /min 76 /min [facility] ([facility] Diastolic blood pressure 58 mm[Hg] 58 mm[Hg] [facility] ([facility]) RT Arm Systolic blood pressure 118 mm[Hg] 118 mm[Hg] [facility] ([facility]) RT Arm Body mass index (BMI) [Ratio] 31.0 kg/m2 31.0 k g/m2 [facility] ([facility]) Oxygen saturation in Arterial blood by Pulse oximetry 99 % 99 % [facility] ([facility]) Body weight 160.00 [lb_av] 160.00 [lb_av] MEDEN T ([facility]) Body height 60.25 [in_i] 60.25 [in_i] [facility] ([facility]) 5'0.25" Heart rate 70 /min 70 /min MED[facility] ([facility]) Diastolic blood pressure 70 mm[Hg] 70 mm[Hg] [facility]) Systolic blood pressure 114 mm[Hg] 114 mm[Hg] [facility] ([facility]) Body mass index (BMI) [Ratio] 31.4 kg/m2 31.4 k g/m2 [facility] ([facility]) Oxygen saturation in Arterial blood by Pulse oximetry 97 % 97 % [facility] ([facility]) Body weight 162.00 [lb_av] 162.00 [lb_av] MEDEN T ([facility]) Body height 60.25 [in_i] 60.25 [in_i] [facility] ([facility]) 5'0.25" Heart rate 71 /min 71 /min [facility] ([facility]) Diastolic blood pressure 70 mm[Hg] 70 mm[Hg] [facility] ([facility]) Systolic blood pressure 116 mm[Hg] 116 mm[Hg] M [facility] ([facility]) Body mass index (BMI) [Ratio] 32.3 kg/m2 32.3 k g/m2 [facility] ([facility]) Oxygen saturation in Arterial blood by Pulse oximetry 95 % 95 % [facility] RM Air Body weight 167.00 [lb_av] 167.00 [lb_av] MEDEN T ([facility]) Body height 60.25 [in_i] 60.25 [in_i] [facility] ([facility]) 5'0.25" Body mass index (BMI) [Ratio] 32.1 kg/m2 32.1 k g/m2 [facility] Body weight 165.50 [lb_av] 165.50 [lb_av] MEDEN T ([facility]) Body height 60.25 [in_i] 60.25 [in_i] [facility] ([facility]) 5'0.25" Heart rate 92 /min 92 /min [facility] ([facility]) Diastolic blood pressure 74 mm[Hg] 74 mm[Hg] [facility]) RT Arm Systolic blood pressure 136 mm[Hg] 136 mm[Hg] [facility] ([facility]) RT Arm Body mass index (BMI) [Ratio] 32.8 kg/m2 32.8 k g/m2 [facility]) Oxygen saturation in Arterial blood by Pulse oximetry --post exerci se 95 % 95 % [facility]) RM Air Body weight 169.50 [lb_av] 169.50 [lb_av] MEDEN T ([facility]) Body height 60.25 [in_i] 60.25 [in_i] [facility] ([facility]) 5'0.25" Heart rate 84 /min 84 /min MED[facility] ([facility]) Diastolic blood pressure 52 mm[Hg] 52 mm[Hg] [facility] ([facility]) RT Arm Systolic blood pressure 122 mm[Hg] 122 mm[Hg] M [facility] ([facility]) RT Arm Body mass index (BMI) [Ratio] 32.6 kg/m2 32.6 k g/m2 [facility] ([facility]) Body weight 168.50 [lb_av] 168.50 [lb_av] MEDEN T ([facility]) Body height 60.25 [in_i] 60.25 [in_i] [facility] ([facility]) 5'0.25" Heart rate 88 /min 88 /min [facility] ([facility]) Diastolic blood pressure 58 mm[Hg] 58 mm[Hg] [facility]) RT Arm Systolic blood pressure 102 mm[Hg] 102 mm[Hg] [facility] ([facility]) RT Arm Body mass index (BMI) [Ratio] 33.4 kg/m2 33.4 k g/m2 [facility]) Oxygen saturation in Arterial blood by Pulse oximetry --post exerci se 94 % 94 % [facility] ([facility]) RM Air Body weight 172.50 [lb_av] 172.50 [lb_av] MEDEN T ([facility]) Body height 60.25 [in_i] 60.25 [in_i] [facility] ([facility]) 5'0.25" Heart rate 80 /min 80 /min [facility] ([facility]) Diastolic blood pressure 80 mm[Hg] 80 mm[Hg] [facility]) RT Arm Systolic blood pressure 122 mm[Hg] 122 mm[Hg] [facility] ([facility]) RT Arm Body mass index (BMI) [Ratio] 33.3 kg/m2 33.3 k g/m2 [facility] ([facility]) Oxygen saturation in Arterial blood by Pulse oximetry --post exerci se 96 % 96 % [facility] ([facility]) RM Air Body weight 172.00 [lb_av] 172.00 [lb_av] MEDEN T ([facility]) Body height 60.25 [in_i] 60.25 [in_i] [facility] ([facility]) 5'0.25" Heart rate 92 /min 92 /min MED[facility] ([facility]) Diastolic blood pressure 74 mm[Hg] 74 mm[Hg] [facility] ([facility]) RT Arm Systolic blood pressure 140 mm[Hg] 140 mm[Hg] M EDENT ([facility]) RT Arm Body mass index (BMI) [Ratio] 33.2 kg/m2 33.2 k g/m2 [facility] ([facility]) Body weight 171.38 [lb_av] 171.38 [lb_av] MEDEN T ([facility]) Body height 60.25 [in_i] 60.25 [in_i] [facility] ([facility]) 5'0.25" Heart rate 96 /min 96 /min MED[facility] ([facility]) Diastolic blood pressure 64 mm[Hg] 64 mm[Hg] [facility] ([facility]) RT Arm Systolic blood pressure 146 mm[Hg] 146 mm[Hg] [facility] RT Arm Body mass index (BMI) [Ratio] 33.3 kg/m2 33.3 k g/m2 [facility] ([facility]) Oxygen saturation in Arterial blood by Pulse oximetry 96 % 96 % [facility] ([facility]) RM Air Body weight 172.00 [lb_av] 172.00 [lb_av] MEDEN T ([facility]) Body height 60.25 [in_i] 60.25 [in_i] [facility] ([facility]) 5'0.25" Heart rate 90 /min 90 /min MED[facility] ([facility]) Diastolic blood pressure 70 mm[Hg] 70 mm[Hg] [facility] ([facility]) Systolic blood pressure 118 mm[Hg] 118 mm[Hg] [facility] Respiratory rate 20 /min 20 /min MED[facility] ( [facility] ) Body mass index (BMI) [Ratio] 317.5 kg/m2 317.5 kg/m2 MED[facility] ([facility] ) Body weight 1708.00 [lb_av] 1708.00 [lb_av] MED ENT ([facility] ) Body height 61.5 [in_i] 61.5 [in_i] MED[facility] ([facility]) 5'1.50" Body temperature 96.4 [degF] 96.4 [degF] [facility] ([facility]) Heart rate 80 /min 80 /min MED[facility] ([facility]) Diastolic blood pressure 62 mm[Hg] 62 mm[Hg] [facility] ([facility]) Systolic blood pressure 98 mm[Hg] 98 mm[Hg] M EDENT ([facility]) Body mass index (BMI) [Ratio] 32.2 kg/m2 32.2 k g/m2 [facility] ([facility]) Body weight 166.50 [lb_av] 166.50 [lb_av] MEDEN T ([facility]) Body height 60.25 [in_i] 60.25 [in_i] MED[facility] ([facility]) 5'0.25" Heart rate 88 /min 88 /min MED[facility] ([facility]) Diastolic blood pressure 78 mm[Hg] 78 mm[Hg] [facility] ([facility]) RT Arm Systolic blood pressure 128 mm[Hg] 128 mm[Hg] M EDENT ([facility]) RT Arm Diastolic blood pressure 69 mm[Hg] 69 mm[Hg] eCW1 ([facility]) Systolic blood pressure 142 mm[Hg] 142 mm[Hg] e CW1 ([facility]) Body temperature 97.2 [degF] 97.2 [degF] eCW1 ( [facility]) Respiratory rate 16 /min 16 /min eCW1 ([facility]) Heart rate 78 /min 78 /min eCW1 ([facility]) Body mass index (BMI) [Ratio] 31.16 kg/m2 31.16 kg/m2 eCW1 ([facility]) Body height 62 [in_us] 62 [in_us] eCW1 ([facility]) Body weight Measured 170.4 [lb_av] 170.4 [lb_av ] eCW1 ([facility]) Diastolic blood pressure 72 mm[Hg] 72 mm[Hg] eCW1 ([facility]) Systolic blood pressure 140 mm[Hg] 140 mm[Hg] e CW1 ([facility]) Body temperature 96.0 [degF] 96.0 [degF] eCW1 ( [facility]) Respiratory rate 16 /min 16 /min eCW1 ([facility]) Heart rate 104 /min 104 /min eCW1 ([facility]) Body mass index (BMI) [Ratio] 31.24 kg/m2 31.24 kg/m2 eCW1 ([facility]) Body height 62 [in_us] 62 [in_us] eCW1 ([facility]) Body weight Measured 170.8 [lb_av] 170.8 [lb_av ] eCW1 ([facility]) Body mass index (BMI) [Ratio] 32.0 kg/m2 32.0 k g/m2 MED[facility] ([facility]) Body weight 172.00 [lb_av] 172.00 [lb_av] MEDEN T ([facility]) Body height 61.5 [in_i] 61.5 [in_i] MEDENT ([facility]) 5'1.50" Diastolic blood pressure 73 mm[Hg] 73 mm[Hg] eCW1 ([facility]) Systolic blood pressure 131 mm[Hg] 131 mm[Hg] e CW1 ([facility]) Body temperature 96.1 [degF] 96.1 [degF] eCW1 ( [facility]) Respiratory rate 16 /min 16 /min eCW1 ([facility]) Heart rate 85 /min 85 /min eCW1 ([facility]) Body mass index (BMI) [Ratio] 31.64 kg/m2 31.64 kg/m2 eCW1 ([facility]) Body height 62 [in_us] 62 [in_us] eCW1 ([facility]) Body weight Measured 173.0 [lb_av] 173.0 [lb_av ] eCW1 ([facility]) Diastolic blood pressure 75 mm[Hg] 75 mm[Hg] eCW1 ([facility]) Systolic blood pressure 146 mm[Hg] 146 mm[Hg] e CW1 ([facility]) Body temperature 97.5 [degF] 97.5 [degF] eCW1 ( [facility]) Respiratory rate 16 /min 16 /min eCW1 ([facility]) Heart rate 87 /min 87 /min eCW1 ([facility]) Body mass index (BMI) [Ratio] 30.98 kg/m2 30.98 kg/m2 eCW1 ([facility]) Body height 62 [in_us] 62 [in_us] eCW1 ([facility]) Body weight Measured 169.4 [lb_av] 169.4 [lb_av ] eCW1 ([facility])
[2020-09-02] MEDS ORDERED: NS 1,000 ML IV ONE (05:30)
[2020-09-02 05:36] LABS: BASO # 0.1 10^3/uL (0.0-0.2); BASO % 0.9 % (0.0-1.0); EOS # 0.2 10^3/uL (0.0-0.5); EOS % 1.8 % (0.0-3.0); HEMOGLOBIN 11.9 g/dl (12.0-15.5); LYMPH # 1.5 10^3/uL (1.5-5.0); LYMPH % 13.6 % (24.0-44.0); MEAN CORPUSCULAR HEMOGLOBIN 27.9 pg (27.0-33.0); MEAN CORPUSCULAR HGB CONC 32.2 g/dl (32.0-36.5); MEAN CORPUSCULAR VOLUME 86.9 fl (80.0-96.0); MONO # 1.1 10^3/uL (0.0-0.8); MONO % 9.6 % (0.0-5.0); NEUTROPHILS # 8.3 10^3/uL (1.5-8.5); NEUTROPHILS % 73.2 % (36.0-66.0); PLATELET COUNT, AUTOMATED 321 10^3/uL (150-450); RED BLOOD COUNT 4.26 10^6/uL (4.00-5.40); WHITE BLOOD COUNT 11.3 10^3/uL (4.0-10.0)
[2020-09-02 05:51] LABS: OSMOLALITY SERUM 300 MOSM/KG (280-301)
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
[2020-09-02] MEDS ORDERED: CYCL5TAB PO (05:54)
--- NOTE | 2020-09-02 05:55 | REPVR ---
PROCEDURE INFORMATION: Exam: CT Cervical Spine Without Contrast Exam date and time: 09/02/2020 5:17 AM Age: 74 years old Clinical indication: Neck pain; Additional info: Altered mental status TECHNIQUE: Imaging protocol: Computed tomography images of the cervical spine without contrast. Radiation optimization: All CT scans at this facility use at least one of these dose optimization techniques: automated exposure control; mA and/or kV adjustment per patient size (includes targeted exams where dose is matched to clinical indication); or iterative reconstruction. COMPARISON: XA FLUORO GUIDE SPINE INJECTION 09/10/2019 10:04 AM FINDINGS: Bones/joints: Dysraphism of C1 ring. Status post C3-C7 anterior cervical spinal fusion. Discs/Spinal canal/Neural foramina: Extensive facet arthropathy and multilevel degenerative disease. Stenosis of neural foramina at multiple levels most pronounced at C3-C4 and C6-C7. Stenosis of the spinal canal at several levels most pronounced at C6-C7. Lungs: Lung apices are normal. Soft tissues: Unremarkable. IMPRESSION: No acute fractures. Electronically signed by: Michael Carver On 09/02/2020 05:55:22 AM
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
[2020-09-02 06:25] LABS: ACETAMINOPHEN LEVEL < 2.0 UG/ML (10.0-30.0); ALBUMIN 3.8 GM/DL (3.2-5.2); ALT/SGPT 157 U/L (12-78); BILIRUBIN,DIRECT 0.3 MG/DL (0.0-0.2); BILIRUBIN,TOTAL 0.9 MG/DL (0.2-1.0); BLOOD UREA NITROGEN 43 MG/DL (7-18); CALCIUM LEVEL 9.1 MG/DL (8.8-10.2); CARBON DIOXIDE LEVEL 18 MEQ/L (21-32); CHLORIDE LEVEL 108 MEQ/L (98-107); CK-MB VALUE MASS 11.8 NG/ML (<3.6); CPK CREATINE PHOSPHOKINASE 1161 U/L (26-192); CREATININE FOR GFR 1.64 MG/DL (0.55-1.30); ETHYL ALCOHOL (ETHANOL) < 0.003 % (0.000-0.010); GLOMERULAR FILTRATION RATE 32.5 (>39); GLUCOSE, FASTING 92 MG/DL (70-100); MB/CK RELATIVE INDEX 1.02 (< OR =4); POTASSIUM SERUM 3.8 MEQ/L (3.5-5.1); SALICYLATE LEVEL < 1.7 MG/DL (5.0-30.0); SODIUM LEVEL 141 MEQ/L (136-145); TOTAL PROTEIN 6.7 GM/DL (6.4-8.2); TROPONIN I < 0.02 NG/ML (< 0.10)
[2020-09-02 06:28] LABS: ABG BASE EXCESS -7.8 (-2.0-2.0); ABG HCO3 16.6 MEQ/L (22.0-26.0); ABG O2 SATURATION 98.5 % (95.0-99.0); ABG PARTIAL PRESSURE CO2 30.7 mmHg (35.0-45.0); ABG PARTIAL PRESSURE O2 138.2 mmHg (75.0-100.0); ABG STANDARD HCO3 18.1 MEQ/L (22.0-26.0); ABG TOTAL CO2 17.6 MEQ/L (23.0-31.0); ABG pH (ARTERIAL) 7.352 UNITS (7.350-7.450)
[2020-09-02 07:11] LABS: AMPHETAMINES LEVEL URINE NEGATIVE (NEGATIVE); BARBITURATES URINE NEGATIVE (NEGATIVE); BENZODIAZEPINES URINE NEGATIVE (NEGATIVE); CANNABINOIDS URINE NEGATIVE (NEGATIVE); COCAINE METABOLITE URINE NEGATIVE (NEGATIVE); METHADONE URINE NEGATIVE (NEGATIVE); OPIATES URINE POSITIVE (NEGATIVE); PHENCYCLIDINE URINE NEGATIVE (NEGATIVE)
--- NOTE | 2020-09-02 07:56 | REPVR ---
PROCEDURE INFORMATION: Exam: US Abdomen Complete Exam date and time: 09/02/2020 7:24 AM Age: 74 years old Clinical indication: Other: Abnormal labs; Prior surgery; Surgery date: 6+ months; Surgery type: Gb; Additional info: Elevated liver enzymes, pillo TECHNIQUE: Imaging protocol: Real-time ultrasound of the abdomen with image documentation. COMPARISON: CT ABD PELVIS W/O CONTRAST 09/02/2020 5:29 AM FINDINGS: Liver: Coarse echogenic attenuating liver parenchyma. Gallbladder: Status post cholecystectomy. Common bile duct: Mildly dilated common bile duct measuring 8 mm. Pancreas: Visualized pancreas is unremarkable. Right kidney: Normal. No mass. No hydronephrosis. Left kidney: Normal. No mass. No hydronephrosis. Spleen: Normal. No splenomegaly. Aorta: Obscured by bowel gas. Inferior vena cava: Normal. IMPRESSION: Steatosis. No acute findings. Electronically signed by: Michael Carver On 09/02/2020 07:56:15 AM
--- OUTSIDE RECORDS SUMMARY | 2020-09-02 07:57 | CCD ---
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 GFR >= 60 NORMAL TO MILDLY DECREASED</content>
<content>STAGE III GFR 30-59 MODERATELY DECREASED</content>
<content>STAGE IV GFR 15-29 SEVERELY DECREASED</content>
<content>STAGE V GFR <15 VERY LITTLE GFR LEFT</content>
<content>ESRD GFR <15 ON FIBER [employer] WORKER</content>
<content></content> ID Date Data Source [id number] 08/05/2020 09:09:00 AM EST [facility] ([facility]) Name Value Range Interpretation Code Description Data Elizabeth rce(s) Supporting Document(s) Leukocytes [#/volume] in Blood by Automated count 8.0 x10*3/UL 4.1-10 .9 [facility] ([facility]) Erythrocytes [#/volume] in Blood by Automated count 4.97 x10*6/UL 4.2 0-6.30 [facility] ([facility]) Hemoglobin [Mass/volume] in Blood 14.4 g/dL 12.0-18.0 [facility] Hematocrit [Volume Fraction] of Blood by Automated count 41.7 % 3 7.0-51.0 [facility] ([facility]) MCH 29.0 pg 26.0-32.0 [facility] ([place] [facility]) MCV 83.8 fL 80.0-97.0 [facility] ([facility]) Erythrocyte distribution width [Ratio] by Automated count 12.9 % 11.6-13.7 [facility] ([facility]) MCHC 34.5 g/dL 31.0-38.0 [facility] ([facility]) Lymph % 20.5 % 10.0-58.5 [facility] ([facility]) Platelets [#/volume] in Blood by Automated count 440 x10*3/UL 140-440 [facility] ([facility]) MPV 7.7 FL 7.8-11.0 [facility]) Neut % 75.1 % 37.0-92.0 [facility]) Mid % 4.4 % 1.7-9.3 [facility]) Lymph # 1.6 x10*3/UL 0.6-4.1 [facility] ([facility]) Mid # 0.4 x10*3/UL 0.1-0.6 [facility] ([facility]) Neut # 6.0 x10*3/UL 2.0-7.8 [facility] ([facility]) ID Date Data Source [id number] 07/02/2020 10:30:00 AM EST [facility] Name Value Range Interpretation Code Description Data Elizabeth rce(s) Supporting Document(s) SARS coronavirus 2 RNA [facility] This lab was ordered by [facility] and reported by [facility]. ID Date Data Source [id number] 07/02/2020 10:25:00 AM EST [facility] ([facility]) Name Value Range Interpretation Code Description Data Elizabeth rce(s) Supporting Document(s) Total Bilirubin 0.8 mg/dL 0.2-1.0 [facility] ([facility]) Alkaline phosphatase isoenzyme [Units/volume] in Serum or Pl asma 152 mg/dL 46-116 [facility] ([facility]) Aspartate aminotransferase [Enzymatic activity/volume] in Serum or Plasma 55 U/L 15-37 [facility] ([facility] ) Albumin [Mass/volume] in Serum or Plasma 4.1 g/dL 3.4-5.0 [facility] ([facility]) Alanine aminotransferase [Enzymatic activity/volume] in Seru m or Plasma 96 U/L 12-78 [facility] ([facility]) A/G Ratio 1.08 CALC 1.00-1.90 [facility]) Direct Bilirubin 0.2 mg/dL 0.0-0.2 [facility] ([facility]) Proteinase 3 Ab [Units/volume] in Serum 7.9 g/dL 6.4-8.2 [facility] ID Date Data Source [id number] 06/26/2020 09:48:00 AM EST [facility] ([facility]) Name Value Range Interpretation Code Description Data Elizabeth rce(s) Supporting Document(s) Alkaline phosphatase isoenzyme [Units/volume] in Serum or Pl asma 136 mg/dL 46-116 [facility] ([facility]) Total Bilirubin 0.8 mg/dL 0.2-1.0 [facility] ([facility]) Alanine aminotransferase [Enzymatic activity/volume] in Seru m or Plasma 103 U/L 12-78 [facility] ([facility]) Aspartate aminotransferase [Enzymatic activity/volume] in Serum or Plasma 62 U/L 15-37 [facility] ([facility] ) Albumin [Mass/volume] in Serum or Plasma 3.7 g/dL 3.4-5.0 [facility] ([facility]) Proteinase 3 Ab [Units/volume] in Serum 6.8 g/dL 6.4-8.2 [facility] Direct Bilirubin 0.2 mg/dL 0.0-0.2 [facility] ([facility]) A/G Ratio 1.19 CALC 1.00-1.90 [facility] ([facility]) ID Date Data Source [id number] 06/23/2020 09:11:00 AM EST [facility] ([facility]) Name Value Range Interpretation Code Description Data Elizabeth rce(s) Supporting Document(s) Prothrombin Time 18.2 s 12.5-14.3 [facility] Inr 1.48 [facility] ([facility]) THERAPUTIC HUMAN INR VALUES INDICATIONS NORMAL RANGES PROPHYLAXIS/TREATMENT OF: VENOUS THROMBOSIS 2.0-3.0 PULMONARY EMBOLISM 2.0-3.0 PREVENTION OF SYSTEMIC EMBOLISM FROM: TISSUE HEART VALVES 2.0-3.0 ACUTE MYOCARDIAL INFARCTION 2.0-3.0 VALVULAR HEART DISEASE 2.0-3.0 ATRIAL FIBRILLATION 2.0-3.0 MECHANICAL VALVES(HIGH RISK) 2.5-3.5 RECURRENT MYOCARDIAL INFARCTION 2.5-3.5 ID Date Data Source [id number] 06/23/2020 09:11:00 AM EST [facility] ([facility]) Name Value Range Interpretation Code Description Data Elizabeth rce(s) Supporting Document(s) Blood Urea Nitrogen 17 mg/dL 7-18 [facility] ([facility]) Glucose, Fasting 115 mg/dL 70-100 [facility] ([facility]) Creatinine For GFR 1.24 mg/dL 0.55-1.30 [facility] ([facility]) Glomerular Filtration Rate 44.9 [facility] ([facility]) <content>Units are mL/min/1.73 m2</content>
<content></content>
<content>Chronic Kidney Disease Staging per NKF:</content>
<content></content>
<content>Stage I & II GFR >=60 Normal to Mildly Decreased</content>
<content>Stage III GFR 30- 59 Moderately Decreased</content>
<content>Stage IV GFR 15-29 Severely Decreased</content>
<content>Stage V GFR <15 Very Little GFR Left</content>
<content>ESRD GFR <15 on FIBER [employer]ASS WORKER</content>
<content></content> Sodium Level 139 meq/L 136-145 [facility] ([facility]) Chloride Level 107 meq/L 98-107 [facility] ([facility]) Potassium Serum 5.2 meq/L 3.5-5.1 [facility] ([facility]) Carbon Dioxide Level 28 meq/L 21-32 [facility] ([facility]) Anion Gap 4 meq/L 8-16 [facility]) Alt/SGPT 100 U/L 12-78 [facility] ([place] [facility]) Ast/Sgot 60 U/L 7-37 [facility] ([facility]) Calcium Level 9.5 mg/dL 8.8-10.2 [facility] ([facility]) Bilirubin,Total 0.7 mg/dL 0.2-1.0 [facility] ([facility]) Total Protein 6.9 GM/DL 6.4-8.2 [facility] ([facility]) Alkaline Phosphatase 134 U/L 45-117 [facility] ([facility]) Albumin/Globulin Ratio 1.2 1.2-2.2 [facility] ([facility]) Albumin 3.7 GM/DL 3.2-5.2 [facility]) ID Date Data Source [id number] 06/23/2020 09:11:00 AM EST [facility] ([facility]) Name Value Range Interpretation Code Description Data Elizabeth rce(s) Supporting Document(s) Red Blood Count 4.91 10 4.00-5.40 [facility] ([facility]) White Blood Count 8.8 10 4.0-10.0 [facility] Hematocrit 44.5 % 36.0-47.0 [facility]) Mean Corpuscular Volume 90.6 fl 80.0-96.0 [facility] ([facility]) Hemoglobin 13.7 g/dL 12.0-15.5 [facility]) Mean Corpuscular HGB Conc 30.8 g/dL 32.0-36.5 [facility] NT ([facility]) Mean Corpuscular Hemoglobin 27.9 pg 27.0-33.0 [facility] ([facility]) Nucleated Red Blood Cell % 0.0 % 0-0 [facility] ([facility]) Platelet Count, Automated 329 10 150-450 [facility] NT ([facility]) Red Cell Distribution Width 13.2 % 11.5-14.5 [place] [facility] ([facility]) ID Date Data Source [id number] 06/23/2020 09:11:00 AM EST [facility] ([facility]) Name Value Range Interpretation Code Description Data Elizabeth rce(s) Supporting Document(s) Erythrocyte sedimentation rate by Westergren method 25 mm/hr 0-30 [facility] ([facility]) ID Date Data Source [id number] 06/23/2020 09:11:00 AM EST [facility] ([facility]) Name Value Range Interpretation Code Description Data Elizabeth rce(s) Supporting Document(s) Erythrocyte sedimentation rate by Westergren method 25 mm/hr 0-30 [facility] ([facility]) ID Date Data Source [id number] 06/23/2020 09:11:00 AM EST [facility] ([facility]) Name Value Range Interpretation Code Description Data Elizabeth rce(s) Supporting Document(s) White Blood Count 8.8 10 4.0-10.0 [facility] ([facility]) Hematocrit 44.5 % 36.0-47.0 [facility] ([facility]) Hemoglobin 13.7 g/dL 12.0-15.5 [facility] ([facility]) Red Blood Count [...] [facility] ([facility]) Red Cell Distribution Width 13.2 % 11.5-14.5 [facility] ([facility]) Platelet Count, Automated 329 10 150-450 [facility] ([facility]) ID Date Data Source [id number] 06/23/2020 09:11:00 AM EST [facility] ([facility]) Name Value Range Interpretation Code Description Data Elizabeth rce(s) Supporting Document(s) Glucose, Fasting 115 mg/dL 70-100 [facility] ([facility]) Blood Urea Nitrogen 17 mg/dL 7-18 [facility] ([facility]) Glomerular Filtration Rate 44.9 [facility] ([facility]) <content>Units are mL/min/1.73 m2</content>
<content></content>
<content>Chronic Kidney Disease Staging per NKF:</content>
<content></content>
<content>Stage I & II GFR >=60 Normal to Mildly Decreased</content>
<content>Stage III GFR 30- 59 Moderately Decreased</content>
<content>Stage IV GFR 15-29 Severely Decreased</content>
<content>Stage V GFR <15 Very Little GFR Left</content>
<content>ESRD GFR <15 on F[employer]ER [employer] WORKER</content>
<content></content> Creatinine For GFR 1.24 mg/dL 0.55-1.30 [facility] ([facility]) Potassium Serum 5.2 meq/L 3.5-5.1 [facility] ([facility]) Sodium Level 139 meq/L 136-145 [facility] ([facility]) Chloride Level 107 meq/L 98-107 [facility] ([facility] Carbon Dioxide Level 28 meq/L 21-32 [facility] ( [facility] Calcium Level 9.5 mg/dL 8.8-10.2 [facility] ([facility]) Anion Gap 4 meq/L 8-16 [facility] ([facility]) Alt/SGPT 100 U/L 12-78 [facility] ([facility]) Ast/Sgot 60 U/L 7-37 [facility] ([facility]) Alkaline Phosphatase 134 U/L 45-117 [facility] ( [facility]) Albumin 3.7 GM/DL 3.2-5.2 [facility] ([facility]) Total Protein 6.9 GM/DL 6.4-8.2 [facility] ([facility]) Bilirubin,Total 0.7 mg/dL 0.2-1.0 [facility] ([facility]) Albumin/Globulin Ratio 1.2 1.2-2.2 [facility] ([facility]) ID Date Data Source [id number] 06/23/2020 09:11:00 AM EST [facility] ([facility]) Name Value Range Interpretation Code Description Data Elizabeth rce(s) Supporting Document(s) Prothrombin Time 18.2 s 12.5-14.3 [facility] ([facility]) Inr 1.48 [facility] ([facility]) THERAPUTIC HUMAN INR VALUES INDICATIONS NORMAL RANGES PROPHYLAXIS/TREATMENT OF: VENOUS THROMBOSIS 2.0-3.0 PULMONARY EMBOLISM 2.0-3.0 PREVENTION OF SYSTEMIC EMBOLISM FROM: TISSUE HEART VALVES 2.0-3.0 ACUTE MYOCARDIAL INFARCTION 2.0-3.0 VALVULAR HEART DISEASE 2.0-3.0 ATRIAL FIBRILLATION 2.0-3.0 MECHANICAL VALVES(HIGH RISK) 2.5-3.5 RECURRENT MYOCARDIAL INFARCTION 2.5-3.5 ID Date Data Source [id number] 05/13/2020 08:48:00 AM EDT [facility] ([facility]) Name Value Range Interpretation Code Description Data Elizabeth rce(s) Supporting Document(s) Thyrotropin [Units/volume] in Serum or Plasma by Detec tion limit <= 0.05 mIU/L 6.74 uIU/mL 0.36-3.74 [facility] ([facility] ) ID Date Data Source [id number] 05/13/2020 08:48:00 AM EDT [facility] ([facility]) Name Value Range Interpretation Code Description Data Elizabeth rce(s) Supporting Document(s) Glucose [Mass/volume] in Serum or Plasma 105 mg/dL 74-99 [facility] ([facility]) 100-125 mg/dL PRE-DIABETES/FASTING >126 mg/dL DIABETES/FASTING Urea nitrogen [Mass/volume] in Serum or Plasma 21 mg/dL 7-18 [facility] ([facility]) Sodium [Moles/volume] in Serum or Plasma 140 meq/L 136-145 [facility] ([facility]) Potassium [Moles/volume] in Serum or Plasma 4.1 meq/L 3.5-5.1 [facility] ([facility]) Creatinine 1.2 mg/dL 0.6-1.3 [facility] ([facility]) Carbon dioxide, total [Moles/volume] in Serum or Plasma 26 meq/L 21 -32 [facility] ([facility]) Calcium [Mass/volume] in Serum or Plasma 8.7 mg/dL 8.5-10.1 [facility] ([facility]) Chloride [Moles/volume] in Serum or Plasma 103 meq/L 98-107 [facility] ([facility]) Aspartate aminotransferase [Enzymatic activity/volume] in Serum or Plasma 34 U/L 15-37 [facility] ([facility] ) Total Bilirubin 0.9 mg/dL 0.2-1.0 [facility] ([facility]) Alkaline phosphatase isoenzyme [Units/volume] in Serum or Pl asma 116 mg/dL 46-116 [facility] ([facility]) Alanine aminotransferase [Enzymatic activity/volume] in Seru m or Plasma 59 U/L 12-78 [facility] ([facility]) Albumin [Mass/volume] in Serum or Plasma 3.7 g/dL 3.4-5.0 [facility] Glomerular filtration rate/1.73 sq M pre dicted among non-blacks [Volume Rate/Area] in Serum or Plasma by Creatinine-based formula (MDRD) 44 mL/min [facility] A/G Ratio 1.06 CALC 1.00-1.90 [facility] ([place] [facility]) Proteinase 3 Ab [Units/volume] in Serum 7.2 g/dL 6.4-8.2 [facility] Glomerular filtration rate/1.73 sq M pre dicted among blacks [Volume Rate/Area] in Serum or Plasma by Creatinine-based formula (MDRD) 53 mL/min [facility] ([facility] <content>CHRONIC KIDNEY DISEASE STAGING PER NKF</content>
<content></content>
<content>STAGE I & II GFR >= 60 NORMAL TO MILDLY DECREASED</content>
<content>STAGE III GFR 30-59 MODERATELY DECREASED</content>
<content>STAGE IV GFR 15-29 SEVERELY DECREASED</content>
<content>STAGE V GFR <15 VERY LITTLE GFR LEFT</content>
<content>ESRD GFR <15 ON F[employer]ER [employer] WORKER</content>
<content></content> ID Date Data Source [id number] 05/13/2020 08:47:00 AM EDT [facility] ([facility]) Name Value Range Interpretation Code Description Data Elizabeth rce(s) Supporting Document(s) Leukocytes [#/volume] in Blood by Automated count 8.8 x10*3/UL 4.1-10 .9 [facility] Hematocrit [Volume Fraction] of Blood by Automated count 40.1 % 3 7.0-51.0 [facility] Hemoglobin [Mass/volume] in Blood 13.7 g/dL 12.0-18.0 [facility] ([facility]) Erythrocytes [#/volume] in Blood by Automated count 4.75 x10*6/UL 4.2 0-6.30 [facility] ([facility]) MCV 84.4 fL 80.0-97.0 [facility] ([place] [facility]) MCH 29.0 pg 26.0-32.0 [facility] ([place] [facility]) Erythrocyte distribution width [Ratio] by Automated count 13.2 % 11.6-13.7 [facility] ([facility]) MCHC 34.3 g/dL 31.0-38.0 [facility] ([place] [facility]) Platelets [#/volume] in Blood by Automated count 338 x10*3/UL 140-440 [facility] ([facility]) MPV 7.6 FL 7.8-11.0 [facility] ([place] [facility]) Lymph % 16.0 % 10.0-58.5 [facility] ([place] [facility]) Mid % 4.3 % 1.7-9.3 [facility] ([place] [facility] Neut % 79.7 % 37.0-92.0 [facility] ([place] [facility] Lymph # 1.4 x10*3/UL 0.6-4.1 [facility] ([facility]) Neut # 7.0 x10*3/UL 2.0-7.8 [facility] ([facility]) Mid # 0.4 x10*3/UL 0.1-0.6 [facility] ([facility]) ID Date Data Source [id number] 05/08/2020 01:27:00 PM EDT [facility] ([facility]) Name Value Range Interpretation Code Description Data Elizabeth rce(s) Supporting Document(s) Laboratory test finding (navigational concept) [facility] result [facility] ID Date Data Source [id number] 04/07/2020 11:59:00 AM EDT [facility] ([facility]) Name Value Range Interpretation Code Description Data Elizabeth rce(s) Supporting Document(s) Thyrotropin [Units/volume] in Serum or Plasma by Detec tion limit <= 0.05 mIU/L 1.02 uIU/mL 0.36-3.74 [facility] ([facility] ) ID Date Data Source [id number] 04/07/2020 11:59:00 AM EDT [facility] ([facility]) Name Value Range Interpretation Code Description Data Elizabeth rce(s) Supporting Document(s) Urea nitrogen [Mass/volume] in Serum or Plasma 18 mg/dL 7-18 [facility] ([facility]) Creatinine 1.3 mg/dL 0.6-1.3 [facility] ([facility]) Glucose [Mass/volume] in Serum or Plasma 106 mg/dL 74-99 [facility] ([facility]) 100-125 mg/dL PRE-DIABETES/FASTING >126 mg/dL DIABETES/FASTING Sodium [Moles/volume] in Serum or Plasma 140 meq/L 136-145 [facility] ([facility]) Chloride [Moles/volume] in Serum or Plasma 102 meq/L 98-107 [facility] ([facility]) Potassium [Moles/volume] in Serum or Plasma 5.1 meq/L 3.5-5.1 [facility] ([facility]) Carbon dioxide, total [Moles/volume] in Serum or Plasma 27 meq/L 21 -32 [facility] ([facility]) Calcium [Mass/volume] in Serum or Plasma 9.5 mg/dL 8.5-10.1 [facility] ([facility]) Alkaline phosphatase isoenzyme [Units/volume] in Serum or Pl asma 104 mg/dL 46-116 [facility] ([facility]) Aspartate aminotransferase [Enzymatic activity/volume] in Serum or Plasma 37 U/L 15-37 [facility] ([facility] ) Total Bilirubin 1.0 mg/dL 0.2-1.0 [facility] ([facility]) Alanine aminotransferase [Enzymatic activity/volume] in Seru m or Plasma 52 U/L 12-78 [facility] ([facility]) A/G Ratio 1.21 CALC 1.00-1.90 [facility]) Proteinase 3 Ab [Units/volume] in Serum 7.3 g/dL 6.4-8.2 [facility] ([facility]) Albumin [Mass/volume] in Serum or Plasma 4.0 g/dL 3.4-5.0 [facility] Glomerular filtration rate/1.73 sq M pre dicted among blacks [Volume Rate/Area] in Serum or Plasma by Creatinine-based formula (MDRD) 48 mL/min [facility] ([facility]) <content>CHRONIC KIDNEY DISEASE STAGING PER NKF</content>
<content></content>
<content>STAGE I & II GFR >= 60 NORMAL TO MILDLY DECREASED</content>
<content>STAGE III GFR 30-59 MODERATELY DECREASED</content>
<content>STAGE IV GFR 15-29 SEVERELY DECREASED</content>
<content>STAGE V GFR <15 VERY LITTLE GFR LEFT</content>
<content>ESRD GFR <15 ON F[employer]ER [employer]</content>
<content></content> Glomerular filtration rate/1.73 sq M pre dicted among non-blacks [Volume Rate/Area] in Serum or Plasma by Creatinine-based formula (MDRD) 40 mL/min [facility] ([facility]) ID Date Data Source [id number] 04/07/2020 11:59:00 AM EDT [facility]) Name Value Range Interpretation Code Description Data Elizabeth rce(s) Supporting Document(s) Magnesium 2.0 mg/dL 1.8-2.4 [facility]) ID Date Data Source [id number] 04/07/2020 11:59:00 AM EDT [facility] ([facility]) Name Value Range Interpretation Code Description Data Elizabeth rce(s) Supporting Document(s) Leukocytes [#/volume] in Blood by Automated count 8.5 x10*3/UL 4.1-10 .9 [facility] ([facility]) Erythrocytes [#/volume] in Blood by Automated count 5.00 x10*6/UL 4.2 0-6.30 [facility] ([facility]) Hemoglobin [Mass/volume] in Blood 14.4 g/dL 12.0-18.0 [facility] ([facility]) Hematocrit [Volume Fraction] of Blood by Automated count 42.8 % 3 7.0-51.0 [facility] ([facility]) MCHC 33.8 g/dL 31.0-38.0 [facility] MCH 28.9 pg 26.0-32.0 [facility] MCV 85.5 fL 80.0-97.0 [facility] ([facility]) Platelets [#/volume] in Blood by Automated count 361 x10*3/UL 140-440 [facility] MPV 8.3 FL 7.8-11.0 [facility] ([facility]) Erythrocyte distribution width [Ratio] by Automated count 13.3 % 11.6-13.7 [facility] ([facility]) Lymph % 19.5 % 10.0-58.5 [facility] Mid % 5.7 % 1.7-9.3 [facility] Neut % 74.8 % 37.0-92.0 [facility] Mid # 0.5 x10*3/UL 0.1-0.6 [facility] ([facility]) Lymph # 1.6 x10*3/UL 0.6-4.1 [facility] ([facility]) Neut # 6.4 x10*3/UL 2.0-7.8 [facility] ([facility]) ID Date Data Source [id number] 03/04/2020 09:56:00 AM EDT [facility] ([facility]) Name Value Range Interpretation Code Description Data Elizabeth rce(s) Supporting Document(s) Glucose [Mass/volume] in Serum or Plasma 99 mg/dL 74-99 [facility] ([facility]) 100-125 mg/dL PRE-DIABETES/FASTING >126 mg/dL DIABETES/FASTING Creatinine 1.4 mg/dL 0.6-1.3 [facility] ([facility]) Urea nitrogen [Mass/volume] in Serum or Plasma 17 mg/dL 7-18 [facility] ([facility]) Chloride [Moles/volume] in Serum or Plasma 103 meq/L 98-107 [facility] ([facility]) Sodium [Moles/volume] in Serum or Plasma 140 meq/L 136-145 [facility] ([facility]) Potassium [Moles/volume] in Serum or Plasma 4.3 meq/L 3.5-5.1 [facility] ([facility]) Carbon dioxide, total [Moles/volume] in Serum or Plasma 26 meq/L 21 -32 [facility] ([facility]) Calcium [Mass/volume] in Serum or Plasma 8.2 mg/dL 8.5-10.1 [facility] ([facility]) NOTE: RESULT VERIFIED. Alkaline phosphatase isoenzyme [Units/volume] in Serum or Pl asma 115 mg/dL 46-116 [facility] ([facility]) Aspartate aminotransferase [Enzymatic activity/volume] in Serum or Plasma 32 U/L 15-37 [facility] ([facility] ) Total Bilirubin 0.8 mg/dL 0.2-1.0 [facility] ([facility]) Alanine aminotransferase [Enzymatic activity/volume] in Seru m or Plasma 47 U/L 12-78 [facility] ([facility]) Proteinase 3 Ab [Units/volume] in Serum 6.5 g/dL 6.4-8.2 [facility] ([facility]) Albumin [Mass/volume] in Serum or Plasma 3.4 g/dL 3.4-5.0 [facility] ([facility]) Glomerular filtration rate/1.73 sq M pre dicted among blacks [Volume Rate/Area] in Serum or Plasma by Creatinine-based formula (MDRD) 44 mL/min [facility] <content>CHRONIC KIDNEY DISEASE STAGING PER NKF</content>
<content></content>
<content>STAGE I & II GFR >= 60 NORMAL TO MILDLY DECREASED</content>
<content>STAGE III GFR 30-59 MODERATELY DECREASED</content>
<content>STAGE IV GFR 15-29 SEVERELY DECREASED</content>
<content>STAGE V GFR <15 VERY LITTLE GFR LEFT</content>
<content>ESRD GFR <15 ON [employer]</content>
<content></content> A/G Ratio 1.10 CALC 1.00-1.90 [facility] ([facility]) Glomerular filtration rate/1.73 sq M pre dicted among non-blacks [Volume Rate/Area] in Serum or Plasma by Creatinine-based formula (MDRD) 37 mL/min [facility] ID Date Data Source [id number] 03/04/2020 09:56:00 AM EDT [facility] ([facility] Name Value Range Interpretation Code Description Data Elizabeth rce(s) Supporting Document(s) Leukocytes [#/volume] in Blood by Automated count 12.6 x10*3/UL 4.1-1 0.9 [facility] ([facility] NOTE: CBC VERIFIED Erythrocytes [#/volume] in Blood by Automated count 4.45 x10*6/UL 4.2 0-6.30 [facility] ([facility] Hemoglobin [Mass/volume] in Blood 12.8 g/dL 12.0-18.0 [facility] ([facility]) MCV 84.7 fL 80.0-97.0 [facility] ([facility]) Hematocrit [Volume Fraction] of Blood by Automated count 37.7 % 3 7.0-51.0 [facility] ([facility]) MCHC 33.9 g/dL 31.0-38.0 [facility] ([facility]) Erythrocyte distribution width [Ratio] by Automated count 13.4 % 11.6-13.7 [facility] ([facility] MCH 28.7 pg 26.0-32.0 [facility] ([facility]) Lymph % 10.9 % 10.0-58.5 [facility] ([facility]) Platelets [#/volume] in Blood by Automated count 411 x10*3/UL 140-440 [facility] ([facility] MPV 8.0 FL 7.8-11.0 [facility] ([facility]) Mid % 3.3 % 1.7-9.3 [facility] ([facility]) Lymph # 1.3 x10*3/UL 0.6-4.1 [facility] ([facility]) Neut % 85.8 % 37.0-92.0 [facility] ([facility]) Neut # 10.8 x10*3/UL 2.0-7.8 [facility] ([facility]) Mid # 0.5 x10*3/UL 0.1-0.6 [facility] ([facility]) ID Date Data Source [id number] 02/25/2020 07:34:00 AM EDT [facility] ([facility]) Name Value Range Interpretation Code Description Data Elizabeth rce(s) Supporting Document(s) Alkaline phosphatase isoenzyme [Units/volume] in Serum or Pl asma 132 mg/dL 46-116 [facility] ([facility] Total Bilirubin 0.8 mg/dL 0.2-1.0 [facility] ([facility]) Alanine aminotransferase [Enzymatic activity/volume] in Seru m or Plasma 107 U/L 12-78 [facility] ([facility]) NOTE: RESULT VERIFIED. Aspartate aminotransferase [Enzymatic activity/volume] in Serum or Plasma 63 U/L 15-37 [facility] ([facility] ) Albumin [Mass/volume] in Serum or Plasma 3.9 g/dL 3.4-5.0 [facility] ([facility]) A/G Ratio 1.26 CALC 1.00-1.90 [facility] ([facility]) Direct Bilirubin 0.2 mg/dL 0.0-0.2 [facility] ([facility]) Proteinase 3 Ab [Units/volume] in Serum 7.0 g/dL 6.4-8.2 [facility] ([facility]) ID Date Data Source [id number] 02/25/2020 07:34:00 AM EDT [facility] ([facility]) Name Value Range Interpretation Code Description Data Elizabeth rce(s) Supporting Document(s) Glucose [Mass/volume] in Serum or Plasma 128 mg/dL 74-99 [facility] ([facility]) 100-125 mg/dL PRE-DIABETES/FASTING >126 mg/dL DIABETES/FASTING Urea nitrogen [Mass/volume] in Serum or Plasma 17 mg/dL 7-18 [facility] ([facility]) Creatinine 1.4 mg/dL 0.6-1.3 [facility] ([facility]) Sodium [Moles/volume] in Serum or Plasma 143 meq/L 136-145 [facility] ([facility]) Potassium [Moles/volume] in Serum or Plasma 4.1 meq/L 3.5-5.1 [facility] ([facility]) Carbon dioxide, total [Moles/volume] in Serum or Plasma 27 meq/L 21 -32 [facility] ([facility]) Chloride [Moles/volume] in Serum or Plasma 105 meq/L 98-107 [facility] ([facility]) Calcium [Mass/volume] in Serum or Plasma 9.2 mg/dL 8.5-10.1 [facility] ([facility]) Glomerular filtration rate/1.73 sq M pre dicted among non-blacks [Volume Rate/Area] in Serum or Plasma by Creatinine-based formula (MDRD) 37 mL/min [facility] ([facility]) Glomerular filtration rate/1.73 sq M pre dicted among blacks [Volume Rate/Area] in Serum or Plasma by Creatinine-based formula (MDRD) 44 mL/min [facility] ([facility]) <content>CHRONIC KIDNEY DISEASE STAGING PER NKF</content>
<content></content>
<content>STAGE I & II GFR >= 60 NORMAL TO MILDLY DECREASED</content>
<content>STAGE III GFR 30-59 MODERATELY DECREASED</content>
<content>STAGE IV GFR 15-29 SEVERELY DECREASED</content>
<content>STAGE V GFR <15 VERY LITTLE GFR LEFT</content>
<content>ESRD GFR <15 ON [employer]</content>
<content></content> ID Date Data Source [id number] 02/25/2020 07:34:00 AM EDT [facility] ([facility] ) Name Value Range Interpretation Code Description Data Elizabeth rce(s) Supporting Document(s) Alkaline phosphatase isoenzyme [Units/volume] in Serum or Pl asma 132 mg/dL 46-116 [facility] ([facility]) Aspartate aminotransferase [Enzymatic activity/volume] in Serum or Plasma 63 U/L 15-37 [facility] ([facility]) Total Bilirubin 0.8 mg/dL 0.2-1.0 [facility] ([facility]) Albumin [Mass/volume] in Serum or Plasma 3.9 g/dL 3.4-5.0 [facility] ([facility]) Alanine aminotransferase [Enzymatic activity/volume] in Seru m or Plasma 107 U/L 12-78 [facility] ([facility]) NOTE: RESULT VERIFIED. Proteinase 3 Ab [Units/volume] in Serum 7.0 g/dL 6.4-8.2 [facility] ([facility] ) Laboratory test finding (navigational concept) 0.2 mg/dL 0.0-0.2 [facility] ([facility]) Albumin/Globulin [Mass Ratio] in Serum or Plasma 1.26 CALC 1.00-1.90 [facility] ([facility]) ID Date Data Source [id number] 02/25/2020 07:34:00 AM EDT [facility] ([facility]) Name Value Range Interpretation Code Description Data Elizabeth rce(s) Supporting Document(s) Glucose [Mass/volume] in Serum or Plasma 128 mg/dL 74-99 [facility] ([facility]) 100-125 mg/dL PRE-DIABETES/FASTING >126 mg/dL DIABETES/FASTING Urea nitrogen [Mass/volume] in Serum or Plasma 17 mg/dL 7-18 [facility] ([facility]) Creatinine [Mass/volume] in Serum or Plasma 1.4 mg/dL 0.6-1.3 [facility] ([facility]) Sodium [Moles/volume] in Serum or Plasma 143 meq/L 136-145 [facility] ([facility]) Chloride [Moles/volume] in Serum or Plasma 105 meq/L 98-107 [facility] ([facility] ) Carbon dioxide, total [Moles/volume] in Serum or Plasma 27 meq/L 21 -32 [facility] ([facility] ) Potassium [Moles/volume] in Serum or Plasma 4.1 meq/L 3.5-5.1 [facility] ([facility] ) Calcium [Mass/volume] in Serum or Plasma 9.2 mg/dL 8.5-10.1 [facility] ([facility]) Glomerular filtration rate/1.73 sq M pre dicted among blacks [Volume Rate/Area] in Serum or Plasma by Creatinine-based formula (MDRD) 44 mL/min [facility] ([facility]) <content>CHRONIC KIDNEY DISEASE STAGING PER NKF</content>
<content></content>
<content>STAGE I & II GFR >= 60 NORMAL TO MILDLY DECREASED</content>
<content>STAGE III GFR 30-59 MODERATELY DECREASED</content>
<content>STAGE IV GFR 15-29 SEVERELY DECREASED</content>
<content>STAGE V GFR <15 VERY LITTLE GFR LEFT</content>
<content>ESRD GFR <15 ON [employer]</content>
<content></content>
<content></content> Glomerular filtration rate/1.73 sq M pre dicted among non-blacks [Volume Rate/Area] in Serum or Plasma by Creatinine-based formula (MDRD) 37 mL/min [facility] ([facility]) ID Date Data Source [id number] 02/23/2020 08:15:00 AM EDT [facility] Name Value Range Interpretation Code Description Data Elizabeth rce(s) Supporting Document(s) SARS coronavirus 2 RNA [facility] This lab was ordered by [facility] and reported by [facility]. ID Date Data Source [id number] 02/20/2020 08:55:00 AM EDT [facility]) Name Value Range Interpretation Code Description Data Elizabeth rce(s) Supporting Document(s) Hepatitis C Virus Rosi Index 0.1 INDEX [facility]) Negative Not infected with HCV, unless recent infection is suspected or other evidence exists to indicate HCV infection. Hepatitis B Surface Antigen Laboratory test result [facility] ([facility]) Hepatitis B Core Antibody Igm Laboratory test result [facility]) Hepatitis A Antibody Igm Laboratory test result [facility]) ID Date Data Source [id number] 02/20/2020 08:55:00 AM EDT [facility]) Name Value Range Interpretation Code Description Data Elizabeth rce(s) Supporting Document(s) Erythrocyte sedimentation rate by Westergren method 18 mm/hr 0-30 [facility] ([facility]) ID Date Data Source [id number] 02/20/2020 08:55:00 AM EDT [facility] ([facility]) Name Value Range Interpretation Code Description Data Elizabeth rce(s) Supporting Document(s) White Blood Count 8.7 10 4.0-10.0 [facility] ([facility]) Red Blood Count 5.04 10 4.00-5.40 [facility] ([facility]) Hematocrit 44.4 % 36.0-47.0 [facility] ([facility]) Hemoglobin 14.4 g/dL 12.0-15.5 [facility] ([facility]) Mean Corpuscular Volume 88.1 fl 80.0-96.0 [facility] ([facility]) Mean Corpuscular Hemoglobin 28.6 pg 27.0-33.0 [place] [facility] ([facility]) Mean Corpuscular HGB Conc 32.4 g/dL 32.0-36.5 [facility] ([facility]) Nucleated Red Blood Cell % 0.0 % 0-0 [facility] ([facility]) Platelet Count, Automated 304 10 150-450 [facility] ([facility]) Red Cell Distribution Width 14.0 % 11.5-14.5 [place] [facility] ([facility]) ID Date Data Source [id number] 02/20/2020 08:55:00 AM EDT [facility] ([facility]) Name Value Range Interpretation Code Description Data Elizabeth rce(s) Supporting Document(s) Blood Urea Nitrogen 15 mg/dL 7-18 [facility] ([facility]) Glucose, Fasting 108 mg/dL 70-100 [facility] ([facility]) Glomerular Filtration Rate 37.2 [facility] ([facility]) <content>Units are mL/min/1.73 m2</content>
<content></content>
<content>Chronic Kidney Disease Staging per NKF:</content>
<content></content>
<content>Stage I & II GFR >=60 Normal to Mildly Decreased</content>
<content>Stage III GFR 30-59 Moderately Decreased</content>
<content>Stage IV GFR 15-29 Severely Decreased</content>
<content>Stage V GFR <15 Very Little GFR Left</content>
<content>ESRD GFR <15 on F[employer]ER [employer] WORK[employer]</content>
<content></content> Creatinine For GFR 1.46 mg/dL 0.55-1.30 [facility] ([facility]) Potassium Serum 3.8 meq/L 3.5-5.1 [facility] ([facility]) Chloride Level 108 meq/L 98-107 [facility] Sodium Level 141 meq/L 136-145 [facility] ([facility]) Anion Gap 9 meq/L 8-16 [facility] ([facility]) Carbon Dioxide Level 24 meq/L 21-32 [facility] ([facility] Calcium Level 9.7 mg/dL 8.8-10.2 [facility] ([facility]) Ast/Sgot 66 U/L 7-37 [facility] ([facility]) Alt/SGPT 100 U/L 12-78 [facility] ([facility]) Alkaline Phosphatase 132 U/L 45-117 [facility] ([facility] Bilirubin,Total 0.6 mg/dL 0.2-1.0 [facility] ([facility]) Total Protein 7.0 GM/DL 6.4-8.2 [facility] ([facility] Albumin 3.8 GM/DL 3.2-5.2 [facility] ([facility]) Albumin/Globulin Ratio 1.2 1.2-2.2 [facility] ([facility]) ID Date Data Source [id number] 02/20/2020 08:55:00 AM EDT [facility] ([facility]) Name Value Range Interpretation Code Description Data Elizabeth rce(s) Supporting Document(s) Prothrombin Time 18.9 s 11.8-14.0 [facility] ([facility]) Inr 1.61 [facility] ([facility]) THERAPUTIC HUMAN INR VALUES INDICATIONS NORMAL RANGES PROPHYLAXIS/TREATMENT OF: VENOUS THROMBOSIS 2.0-3.0 PULMONARY EMBOLISM 2.0-3.0 PREVENTION OF SYSTEMIC EMBOLISM FROM: TISSUE HEART VALVES 2.0-3.0 ACUTE MYOCARDIAL INFARCTION 2.0-3.0 VALVULAR HEART DISEASE 2.0-3.0 ATRIAL FIBRILLATION 2.0-3.0 MECHANICAL VALVES(HIGH RISK) 2.5-3.5 RECURRENT MYOCARDIAL INFARCTION 2.5-3.5 ID Date Data Source [id number] 02/20/2020 08:55:00 AM EDT [facility] ([facility]) Name Value Range Interpretation Code Description Data Elizabeth rce(s) Supporting Document(s) Erythrocyte sedimentation rate by Westergren method 18 mm/hr 0-30 [facility] ([facility]) ID Date Data Source [id number] 02/20/2020 08:55:00 AM EDT [facility] ([facility]) Name Value Range Interpretation Code Description Data Elizabeth rce(s) Supporting Document(s) Red Blood Count 5.04 10 4.00-5.40 [facility] ([facility]) White Blood Count 8.7 10 4.0-10.0 [facility] ([facility] ) Mean Corpuscular Volume 88.1 fl 80.0-96.0 M [facility] ([facility]) Hemoglobin 14.4 g/dL 12.0-15.5 [facility] ([facility] ) Hematocrit 44.4 % 36.0-47.0 [facility] ([facility] ) Red Cell Distribution Width 14.0 % 11.5-14.5 [facility] ([facility]) Mean Corpuscular Hemoglobin 28.6 pg 27.0-33.0 [facility] Mean Corpuscular HGB Conc 32.4 g/dL 32.0-36.5 [facility] Platelet Count, Automated 304 10 150-450 [facility] ([facility]) Nucleated Red Blood Cell % 0.0 % 0-0 [facility] ([facility] ) ID Date Data Source [id number] 02/20/2020 08:55:00 AM EDT [facility] ([facility]) Name Value Range Interpretation Code Description Data Elizabeth rce(s) Supporting Document(s) Glucose, Fasting 108 mg/dL 70-100 [facility] ([facility]) Blood Urea Nitrogen 15 mg/dL 7-18 [facility]) Sodium Level 141 meq/L 136-145 [facility] ([facility]) Creatinine [...] Little GFR Left</content>
<content>ESRD GFR <15 on [employer] WORK[employer]</content>
<content></content> Chloride Level 108 meq/L 98-107 [facility] ([facility]) Carbon Dioxide Level 24 meq/L 21-32 [facility] ([facility]) Potassium Serum 3.8 meq/L 3.5-5.1 [facility] ([facility]) Anion Gap 9 meq/L 8-16 [facility] ([facility]) Ast/Sgot 66 U/L 7-37 [facility] ([facility]) Calcium Level 9.7 mg/dL 8.8-10.2 [facility] ([facility]) Bilirubin,Total 0.6 mg/dL 0.2-1.0 [facility] ([facility]) Alt/SGPT 100 U/L 12-78 [facility] ([facility]) Alkaline Phosphatase 132 U/L 45-117 [facility]) Albumin/Globulin Ratio 1.2 1.2-2.2 [facility] ([facility]) Albumin 3.8 GM/DL 3.2-5.2 [facility] ([facility]) Total Protein 7.0 GM/DL 6.4-8.2 [facility] ID Date Data Source [id number] 02/20/2020 08:55:00 AM EDT [facility] ([facility]) Name Value Range Interpretation Code Description Data Elizabeth rce(s) Supporting Document(s) Prothrombin Time 18.9 s 11.8-14.0 [facility] ([facility]) Inr 1.61 [facility] ([facility] THERAPUTIC HUMAN INR VALUES INDICATIONS NORMAL RANGES PROPHYLAXIS/TREATMENT OF: VENOUS THROMBOSIS 2.0-3.0 PULMONARY EMBOLISM 2.0-3.0 PREVENTION OF SYSTEMIC EMBOLISM FROM: TISSUE HEART VALVES 2.0-3.0 ACUTE MYOCARDIAL INFARCTION 2.0-3.0 VALVULAR HEART DISEASE 2.0-3.0 ATRIAL FIBRILLATION 2.0-3.0 MECHANICAL VALVES(HIGH RISK) 2.5-3.5 RECURRENT MYOCARDIAL INFARCTION 2.5-3.5 ID Date Data Source [id number] 02/20/2020 08:13:00 AM EDT [facility] ([facility]) Name Value Range Interpretation Code Description Data Elizabeth rce(s) Supporting Document(s) Glucose [Mass/volume] in Serum or Plasma 106 mg/dL 74-99 [facility] ([facility]) 100-125 mg/dL PRE-DIABETES/FASTING >126 mg/dL DIABETES/FASTING Urea nitrogen [Mass/volume] in Serum or Plasma 14 mg/dL 7-18 [facility] ([facility]) Sodium [Moles/volume] in Serum or Plasma 144 meq/L 136-145 [facility] ([facility]) Creatinine 1.5 mg/dL 0.6-1.3 [facility]) Potassium [Moles/volume] in Serum or Plasma 4.2 meq/L 3.5-5.1 [facility] ([facility]) Carbon dioxide, total [Moles/volume] in Serum or Plasma 24 meq/L 21 -32 [facility] ([facility]) Chloride [Moles/volume] in Serum or Plasma 106 meq/L 98-107 [facility] ([facility]) Calcium [Mass/volume] in Serum or Plasma 10.0 mg/dL 8.5-10.1 [facility] ([facility]) Glomerular filtration rate/1.73 sq M pre dicted among non-blacks [Volume Rate/Area] in Serum or Plasma by Creatinine-based formula (MDRD) 34 mL/min [facility] Glomerular filtration rate/1.73 sq M pre dicted among blacks [Volume Rate/Area] in Serum or Plasma by Creatinine-based formula (MDRD) 41 mL/min [facility]) <content>CHRONIC KIDNEY DISEASE STAGING PER NKF</content>
<content></content>
<content>STAGE I & II GFR >= 60 NORMAL TO MILDLY DECREASED</content>
<content>STAGE III GFR 30-59 MODERATELY DECREASED</content>
<content>STAGE IV GFR 15-29 SEVERELY DECREASED</content>
<content>STAGE V GFR <15 VERY LITTLE GFR LEFT</content>
<content>ESRD GFR <15 ON F[employer]</content>
<content></content> ID Date Data Source [id number] 02/11/2020 11:08:00 AM EDT [facility] Name Value Range Interpretation Code Description Data Elizabeth rce(s) Supporting Document(s) Hemoglobin A1c/Hemoglobin.total in Blood 5.9 g/dL 4.8-5.6 [facility] ([facility]) Lab Result Notes: Pre-Diabetes 5.7 - 6.4 % Diabetes = or > 6.5% Glucose mean value [Mass/volume] in Blood Estimated fr om glycated hemoglobin 123 mg/dL 60-110 [facility] ([facility] ID Date Data Source [id number] 02/11/2020 11:08:00 AM EDT [facility] ([facility]) Name Value Range Interpretation Code Description Data Elizabeth rce(s) Supporting Document(s) Glucose [Mass/volume] in Serum or Plasma 96 mg/dL 74-99 [facility] ([facility]) 100-125 mg/dL PRE-DIABETES/FASTING >126 mg/dL DIABETES/FASTING Sodium [Moles/volume] in Serum or Plasma 142 meq/L 136-145 [facility] ([facility]) Urea nitrogen [Mass/volume] in Serum or Plasma 17 mg/dL 7-18 [facility] ([facility]) Creatinine 1.6 mg/dL 0.6-1.3 [facility] Potassium [Moles/volume] in Serum or Plasma 3.9 meq/L 3.5-5.1 [facility] ([facility]) Chloride [Moles/volume] in Serum or Plasma 103 meq/L 98-107 [facility] ([facility]) Carbon dioxide, total [Moles/volume] in Serum or Plasma 24 meq/L 21 -32 [facility] ([facility]) Glomerular filtration rate/1.73 sq M pre dicted among non-blacks [Volume Rate/Area] in Serum or Plasma by Creatinine-based formula (MDRD) 31 mL/min [facility] Glomerular filtration rate/1.73 sq M pre dicted among blacks [Volume Rate/Area] in Serum or Plasma by Creatinine-based formula (MDRD) 38 mL/min [facility] <content>CHRONIC KIDNEY DISEASE STAGING PER NKF</content>
<content></content>
<content>STAGE I & II GFR >= 60 NORMAL TO MILDLY DECREASED</content>
<content>STAGE III GFR 30-59 MODERATELY DECREASED</content>
<content>STAGE IV GFR 15-29 SEVERELY DECREASED</content>
<content>STAGE V GFR <15 VERY LITTLE GFR LEFT</content>
<content>ESRD GFR <15 ON FIBER [employer] WORKER</content>
<content></content> Calcium [Mass/volume] in Serum or Plasma 7.8 mg/dL 8.5-10.1 [facility] ([facility]) NOTE: RESULT VERIFIED. ID Date Data Source [id number] 02/11/2020 11:08:00 AM EDT [facility] ([facility]) Name Value Range Interpretation Code Description Data Elizabeth rce(s) Supporting Document(s) Erythrocytes [#/volume] in Blood by Automated count 4.89 x10*6/UL 4.2 0-6.30 [facility] ([facility]) Leukocytes [#/volume] in Blood by Automated count 8.7 x10*3/UL 4.1-10 .9 [facility] Hematocrit [Volume Fraction] of Blood by Automated count 41.6 % 3 7.0-51.0 [facility] ([facility]) MCV 85.0 fL 80.0-97.0 [facility] Hemoglobin [Mass/volume] in Blood 13.9 g/dL 12.0-18.0 [facility] Erythrocyte distribution width [Ratio] by Automated count 13.3 % 11.6-13.7 [facility] ([facility]) MCH 28.5 pg 26.0-32.0 [facility]) MCHC 33.5 g/dL 31.0-38.0 [facility]) MPV 8.1 FL 7.8-11.0 [facility]) Lymph % 17.7 % 10.0-58.5 [facility] ([facility]) Platelets [#/volume] in Blood by Automated count 339 x10*3/UL 140-440 [facility] ([facility]) Mid % 5.6 % 1.7-9.3 [facility] Neut % 76.7 % 37.0-92.0 [facility] ([facility]) Lymph # 1.5 x10*3/UL 0.6-4.1 [facility] ([facility]) Mid # 0.5 x10*3/UL 0.1-0.6 [facility] ([facility]) Neut # 6.7 x10*3/UL 2.0-7.8 [facility] ([facility]) ID Date Data Source [id number] 01/16/2020 10:39:00 AM EDT [facility] ([facility]) Name Value Range Interpretation Code Description Data Elizabeth rce(s) Supporting Document(s) Laboratory test finding (navigational concept) Laboratory test result [facility] ([facility]) ID Date Data Source [id number] 01/08/2020 10:52:00 AM EDT [facility] ([facility]) Name Value Range Interpretation Code Description Data Elizabeth rce(s) Supporting Document(s) Glucose [Mass/volume] in Serum or Plasma 130 mg/dL 74-99 [facility] ([facility]) 100-125 mg/dL PRE-DIABETES/FASTING >126 mg/dL DIABETES/FASTING Creatinine 1.1 mg/dL 0.6-1.3 [facility] ([facility]) Sodium [Moles/volume] in Serum or Plasma 144 meq/L 136-145 [facility] ([facility]) Urea nitrogen [Mass/volume] in Serum or Plasma 15 mg/dL 7-18 [facility] ([facility]) Carbon dioxide, total [Moles/volume] in Serum or Plasma 27 meq/L 21 -32 [facility] ([facility]) Potassium [Moles/volume] in Serum or Plasma 5.2 meq/L 3.5-5.1 [facility] ([facility]) NOTE: RESULT VERIFIED. NO VISIBLE HEMOLYSIS. Chloride [Moles/volume] in Serum or Plasma 106 meq/L 98-107 [facility] ([facility]) Glomerular filtration rate/1.73 sq M pre dicted among blacks [Volume Rate/Area] in Serum or Plasma by Creatinine-based formula (MDRD) 59 mL/min [facility] ([facility]) <content>CHRONIC KIDNEY DISEASE STAGING PER NKF</content>
<content></content>
<content>STAGE I & II GFR >= 60 NORMAL TO MILDLY DECREASED</content>
<content>STAGE III GFR 30-59 MODERATELY DECREASED</content>
<content>STAGE IV GFR 15-29 SEVERELY DECREASED</content>
<content>STAGE V GFR <15 VERY LITTLE GFR LEFT</content>
<content>ESRD GFR <15 ON FIBER [employer] WORKER</content>
<content></content> Glomerular filtration rate/1.73 sq M pre dicted among non-blacks [Volume Rate/Area] in Serum or Plasma by Creatinine-based formula (MDRD) 48 mL/min [facility] Calcium [Mass/volume] in Serum or Plasma 9.4 mg/dL 8.5-10.1 [facility] ([facility]) ID Date Data Source [id number] 01/01/2020 07:43:00 AM EDT [facility] ([facility]) Name Value Range Interpretation Code Description Data Elizabeth rce(s) Supporting Document(s) Calcidiol [Mass/volume] in Serum or Plasma 44.6 24.0-80.0 [facility] ([facility]) This test was performed using FastPack I P Vitamin D immunoassay kit. Values obtained with different assay methods should not be used interchangeably. ID Date Data Source [id number] 01/01/2020 07:42:00 AM EDT [facility] Name Value Range Interpretation Code Description Data Elizabeth rce(s) Supporting Document(s) Glucose [Mass/volume] in Serum or Plasma 153 mg/dL 74-99 [facility] ([facility]) 100-125 mg/dL PRE-DIABETES/FASTING >126 mg/dL DIABETES/FASTING Urea nitrogen [Mass/volume] in Serum or Plasma 17 mg/dL 7-18 [facility] ([facility]) Sodium [Moles/volume] in Serum or Plasma 144 meq/L 136-145 [facility] ([facility]) Creatinine 1.2 mg/dL 0.6-1.3 [facility] ([facility]) Chloride [Moles/volume] in Serum or Plasma 105 meq/L 98-107 [facility] ([facility]) Carbon dioxide, total [Moles/volume] in Serum or Plasma 28 meq/L 21 -32 [facility] ([facility]) Potassium [Moles/volume] in Serum or Plasma 4.2 meq/L 3.5-5.1 [facility] ([facility]) Glomerular filtration rate/1.73 sq M pre dicted among blacks [Volume Rate/Area] in Serum or Plasma by Creatinine-based formula (MDRD) 53 mL/min [facility] ([facility]) <content>CHRONIC KIDNEY DISEASE STAGING PER NKF</content>
<content></content>
<content>STAGE I & II GFR >= 60 NORMAL TO MILDLY DECREASED</content>
<content>STAGE III GFR 30-59 MODERATELY DECREASED</content>
<content>STAGE IV GFR 15-29 SEVERELY DECREASED</content>
<content>STAGE V GFR <15 VERY LITTLE GFR LEFT</content>
<content>ESRD GFR <15 ON F[employer]ER [employer] WORKER</content>
<content></content> Calcium [Mass/volume] in Serum or Plasma 9.5 mg/dL 8.5-10.1 [facility] Glomerular filtration rate/1.73 sq M pre dicted among non-blacks [Volume Rate/Area] in Serum or Plasma by Creatinine-based formula (MDRD) 44 mL/min [facility] ([facility]) ID Date Data Source [id number] 01/01/2020 07:42:00 AM EDT [facility] Name Value Range Interpretation Code Description Data Elizabeth rce(s) Supporting Document(s) Leukocytes [#/volume] in Blood by Automated count 7.3 x10*3/UL 4.1-10 .9 [facility] ([facility]) MCV 83.8 fL 80.0-97.0 [facility]) Hematocrit [Volume Fraction] of Blood by Automated count 44.4 % 3 7.0-51.0 [facility] Hemoglobin [Mass/volume] in Blood 14.9 g/dL 12.0-18.0 [facility] Erythrocytes [#/volume] in Blood by Automated count 5.29 x10*6/UL 4.2 0-6.30 [facility] ([facility]) MCHC 33.6 g/dL 31.0-38.0 [facility]) MCH 28.1 pg 26.0-32.0 [facility]) Erythrocyte distribution width [Ratio] by Automated count 13.3 % 11.6-13.7 [facility] ([facility]) MPV 8.0 FL 7.8-11.0 [facility] Platelets [#/volume] in Blood by Automated count 350 x10*3/UL 140-440 [facility] ([facility]) Lymph % 18.6 % 10.0-58.5 [facility] Lymph # 1.3 x10*3/UL 0.6-4.1 [facility] ([facility]) Mid % 4.6 % 1.7-9.3 [facility] Neut % 76.8 % 37.0-92.0 [facility] Mid # 0.4 x10*3/UL 0.1-0.6 [facility] ([facility]) Neut # 5.6 x10*3/UL 2.0-7.8 [facility] ([facility]) ID Date Data Source [id number] 12/28/2019 08:55:00 AM EDT [facility] ([facility]) Name Value Range Interpretation Code Description Data Elizabeth rce(s) Supporting Document(s) Laboratory test finding (navigational concept) Laboratory test result [facility] ([facility]) ID Date Data Source [id number] 11/27/2019 12:00:00 AM EDT [facility] Tonja Cardenas MD Patient Name: SANTOSH [id number] [facility] Date of : Floor Date of Exam: 11/27/2019[place] Resendez [id number]#: Fax: [phone] EXAM: THORACIC SPINE (3 VIEW) [...] rce(s) Supporting Document(s) ID Date Data Source [id number] 11/19/2019 10:04:00 AM EDT [facility] ([facility]) Name Value Range Interpretation Code Description Data Elizabeth rce(s) Supporting Document(s) Glucose, Fasting 144 mg/dL 70-100 [facility] ([facility]) Glomerular Filtration Rate 47.5 [facility] ([facility]) <content>Units are mL/min/1.73 m2</content>
<content></content>
<content>Chronic Kidney Disease Staging per NKF:</content>
<content></content>
<content>Stage I & II GFR >=60 Normal to Mildly Decreased</content>
<content>Stage III GFR 30- 59 Moderately Decreased</content>
<content>Stage IV GFR 15-29 Severely Decreased</content>
<content>Stage V GFR <15 Very Little GFR Left</content>
<content>ESRD GFR <15 on FIBER GLASS WORKER</content>
<content></content> Creatinine For GFR 1.18 mg/dL 0.55-1.30 [facility] ([facility]) Blood Urea Nitrogen 21 mg/dL 7-18 [facility] ([facility]) Sodium Level 141 meq/L 136-145 [facility] ([facility]) Potassium Serum 3.6 meq/L 3.5-5.1 [facility] ([facility]) Chloride Level 108 meq/L 98-107 [facility] ([facility]) Carbon Dioxide Level 27 meq/L 21-32 [facility] ([facility]) Anion Gap 6 meq/L 8-16 [facility] Calcium Level 9.0 mg/dL 8.8-10.2 [facility] ([facility]) ID Date Data Source [id number] 11/19/2019 10:04:00 AM EDT [facility] ([facility]) Name Value Range Interpretation Code Description Data Elizabeht rce(s) Supporting Document(s) CPK Creatine Phosphokinase 33 U/L 26-192 [facility] ([facility]) CK-MB Value Mass Laboratory test result [facility] MB/CK Relative Index 3.03 [facility] ([facility]) <content>DIAGNOSIS CRITERIA</content>
<content>MMB ng/ml Relative Index (RI)</content>
<content>NON-AMI < or = 5 N/A</content>
<content>HUIZAR ZONE > 5 < or = 4</content>
<content>AMI > 5 > 4</content>
<content></content> Troponin I Laboratory test result [facility]) <content>Troponin I Reference Interval f or Siemens Weston LOCI:</content>
<content></content>
<content>99th Percentile= 0.00-0.045 ng/ml</content>
<content></content>
<content>Risk Stratification:</content>
<content><= 0.10 ng/ml Decreased Risk for Adverse Clinical</content>
<content>Events.</content>
<content>0.10-1.50 ng/ml Increased Risk for Adverse Clinical</content>
<content>Events. Evaluation of additional</content>
<content>criterion and/or repeat testing in 2-6</content>
<content>hours is suggested to rule out myocardial</content>
<content>damage.</content>
<content>>= 1.50 ng/ml Indicative of Myocardial Injury.</content>
<content></content> ID Date Data Source [id number] 11/19/2019 10:04:00 AM EDT [facility] ([facility]) Name Value Range Interpretation Code Description Data Elizabeth rce(s) Supporting Document(s) White Blood Count 8.4 10 4.0-10.0 [facility] ([facility]) Hemoglobin 14.3 g/dL 12.0-15.5 [facility] Red Blood Count 5.08 10 4.00-5.40 [facility] ([facility]) Hematocrit 44.8 % 36.0-47.0 [facility] ([facility]) Mean Corpuscular Hemoglobin 28.1 pg 27.0-33.0 [place] [facility] ([facility]) Mean Corpuscular HGB Conc 31.9 g/dL 32.0-36.5 [facility] ([facility]) Mean Corpuscular Volume 88.2 fl 80.0-96.0 [facility] ([facility]) Platelet Count, Automated 299 10 150-450 [facility] ([facility]) Red Cell Distribution Width 13.7 % 11.5-14.5 [place] [facility] ([facility]) Neutrophils % 69.6 % 36.0-66.0 [facility] ([facility]) Lymph % 13.8 % 24.0-44.0 [facility]) Hickman % 7.6 % 0.0-5.0 [facility]) Eos % 7.2 % 0.0-3.0 [facility]) Baso % 1.4 % 0.0-1.0 [facility]) Immature Granulocyte % 0.4 % 0-3.0 [facility] ([facility]) Nucleated Red Blood Cell % 0.0 % 0-0 [facility] ([facility]) Hickman # 0.6 10 0.0-0.8 [facility]) Lymph # 1.2 10 1.5-5.0 [facility] [place] [facility]) Neutrophils # 5.8 10 1.5-8.5 [facility] ([facility]) Baso # 0.1 10 0.0-0.2 [facility] Eos # 0.6 10 0.0-0.5 [facility] ID Date Data Source [id number] 11/07/2019 08:21:00 AM EDT [facility] ([facility]) Name Value Range Interpretation Code Description Data Elizabeth rce(s) Supporting Document(s) Hemoglobin A1c/Hemoglobin.total in Blood 5.7 g/dL 4.8-5.6 [facility] ([facility]) Lab Result Notes: Pre-Diabetes 5.7 - 6.4 % Diabetes = or > 6.5% Glucose mean value [Mass/volume] in Blood Estimated fr om glycated hemoglobin 117 mg/dL 60-110 [facility] ([facility] ) ID Date Data Source [id number] 11/07/2019 08:21:00 AM EDT [facility] ([facility]) Name Value Range Interpretation Code Description Data Elizabeth rce(s) Supporting Document(s) Leukocytes [#/volume] in Blood by Automated count 9.5 x10*3/UL 4.1-10 .9 [facility] ([facility]) Erythrocytes [#/volume] in Blood by Automated count 5.44 x10*6/UL 4.2 0-6.30 [facility] ([facility]) Hemoglobin [Mass/volume] in Blood 15.1 g/dL 12.0-18.0 [facility] ([facility]) Hematocrit [Volume Fraction] of Blood by Automated count 45.1 % 3 7.0-51.0 [facility] ([facility]) MCV 82.9 fL 80.0-97.0 [facility] MCHC 33.5 g/dL 31.0-38.0 [facility] MCH 27.8 pg 26.0-32.0 [facility] Platelets [#/volume] in Blood by Automated count 337 x10*3/UL 140-440 [facility] ([facility]) Erythrocyte distribution width [Ratio] by Automated count 13.2 % 11.6-13.7 [facility] ([facility]) MPV 8.4 FL 7.8-11.0 [facility]) Neut % 77.1 % 37.0-92.0 [facility] Mid % 4.6 % 1.7-9.3 [facility] Lymph % 18.3 % 10.0-58.5 [facility] Neut # 7.3 x10*3/UL 2.0-7.8 [facility] ([facility]) Lymph # 1.7 x10*3/UL 0.6-4.1 [facility] ([facility]) Mid # 0.5 x10*3/UL 0.1-0.6 [facility] ([facility]) ID Date Data Source [id number] 11/07/2019 08:21:00 AM EDT [facility] ([facility]) Name Value Range Interpretation Code Description Data Elizabeth rce(s) Supporting Document(s) Hemoglobin A1c/Hemoglobin.total in Blood <pending> [facility] ([facility]) ID Date Data Source [id number] 10/24/2019 09:34:00 AM EDT [facility] ([facility]) Name Value Range Interpretation Code Description Data Elizabeth rce(s) Supporting Document(s) Leukocytes [#/volume] in Blood by Automated count 8.6 x10*3/UL 4.1-10 .9 [facility] ([facility]) Erythrocytes [#/volume] in Blood by Automated count 4.87 x10*6/UL 4.2 0-6.30 [facility] ([facility]) Hemoglobin [Mass/volume] in Blood 13.6 g/dL 12.0-18.0 [facility] ([facility]) MCV 83.0 fL 80.0-97.0 [facility] [facility]) Hematocrit [Volume Fraction] of Blood by Automated count 40.4 % 3 7.0-51.0 [facility] ([facility]) MCH 27.9 pg 26.0-32.0 [facility] ([place] [facility]) MCHC 33.6 g/dL 31.0-38.0 [facility] [place] [facility]) Erythrocyte distribution width [Ratio] by Automated count 12.7 % 11.6-13.7 [facility] ([facility]) Platelets [#/volume] in Blood by Automated count 362 x10*3/UL 140-440 [facility] ([facility]) MPV 7.9 FL 7.8-11.0 [facility] ([place] [facility]) Mid % 3.8 % 1.7-9.3 [facility] [facility] Lymph % 14.9 % 10.0-58.5 [facility] ([facility]) Mid # 0.5 x10*3/UL 0.1-0.6 [facility] ([facility]) Neut % 81.3 % 37.0-92.0 [facility] [facility]) Lymph # 1.2 x10*3/UL 0.6-4.1 [facility] ([facility]) Neut # 6.9 x10*3/UL 2.0-7.8 [facility] ([facility]) ID Date Data Source [id number] 10/18/2019 10:59:00 AM EST [facility] ([facility]) Name Value Range Interpretation Code Description Data Elizabeth rce(s) Supporting Document(s) C reactive protein [Mass/volume] in Serum or Plasma by High sensitivity method 3.36 mg/dL 0.00-0.30 [facility] ([facility] ) ID Date Data Source [id number] 10/18/2019 10:58:00 AM EST [facility] ([facility]) Name Value Range Interpretation Code Description Data Elizabeth rce(s) Supporting Document(s) Erythrocyte sedimentation rate by Westergren method 34 mm/hr 0-15 [facility] ([facility]) ID Date Data Source [id number] 10/18/2019 10:58:00 AM EST [facility] ([facility]) Name Value Range Interpretation Code Description Data Elizabeth rce(s) Supporting Document(s) Leukocytes [#/volume] in Blood by Automated count 9.3 x10*3/UL 4.1-10 .9 [facility] ([facility]) Erythrocytes [#/volume] in Blood by Automated count 4.75 x10*6/UL 4.2 0-6.30 [facility] ([facility]) MCV 83.6 fL 80.0-97.0 [facility] [facility]) Hematocrit [Volume Fraction] of Blood by Automated count 39.7 % 3 7.0-51.0 [facility] ([facility]) Hemoglobin [Mass/volume] in Blood 13.4 g/dL 12.0-18.0 [facility] ([facility]) MCH 28.3 pg 26.0-32.0 [facility] ([place] [facility]) MCHC 33.9 g/dL 31.0-38.0 [facility] ([facility]) Platelets [#/volume] in Blood by Automated count 279 x10*3/UL 140-440 [facility] Erythrocyte distribution width [Ratio] by Automated count 13.0 % 11.6-13.7 [facility] ([facility]) Lymph % 12.2 % 10.0-58.5 [facility] ([place] [facility]) Mid % 3.6 % 1.7-9.3 [facility] ([facility]) MPV 8.2 FL 7.8-11.0 [facility] ([facility]) Mid # 0.4 x10*3/UL 0.1-0.6 [facility] ([facility]) Neut % 84.2 % 37.0-92.0 [facility] ([place] [facility]) Lymph # 1.1 x10*3/UL 0.6-4.1 [facility] ([facility]) Neut # 7.8 x10*3/UL 2.0-7.8 [facility] ([facility]) ID Date Data Source [id number] 10/17/2019 12:21:00 PM EST [facility] ([facility]) Name Value Range Interpretation Code Description Data Elizabeth rce(s) Supporting Document(s) C reactive protein [Mass/volume] in Serum or Plasma by High sensitivity method 3.02 mg/dL 0.00-0.30 [facility] ([facility] ) Fibrin D-dimer FEU [Mass/volume] in Platelet poor plasma 3962.33 ng/m L [facility] ([facility]) ID Date Data Source [id number] 10/17/2019 12:20:00 PM EST [facility] ([facility]) Name Value Range Interpretation Code Description Data Elizabeth rce(s) Supporting Document(s) Erythrocyte sedimentation rate by Westergren method 32 mm/hr 0-15 [facility] ([facility]) ID Date Data Source [id number] 10/17/2019 12:20:00 PM EST [facility] MCV 83.8 fL 80.0-97.0 [facility] ([facility]) MCH 28.3 pg 26.0-32.0 [facility] ([facility]) MCHC 33.7 g/dL 31.0-38.0 [facility] ([facility]) Platelets [#/volume] in Blood by [...] PC) Mid # 0.4 x10*3/UL 0.1-0.6 [facility] ([facility] Mid % 2.8 % 1.7-9.3 [facility] ([facility]) Lymph # 1.4 x10*3/UL 0.6-4.1 [facility] ([facility] Neut % 87.0 % 37.0-92.0 [facility] ([facility]) Neutrophils [#/volume] in Semen by Manual count 12.1 x10*3/UL 2.0-7.8 [facility] ([facility]) ID Date Data Source [id number] 10/17/2019 12:20:00 PM EST [facility] ([facility]) Name Value Range Interpretation Code Description Data Elizabeth rce(s) Supporting Document(s) Leukocytes [#/volume] in Blood by Automated count 13.9 x10*3/UL 4.1-1 0.9 [facility] ([facility]) NOTE: RESULT VERIFIED. Erythrocytes [#/volume] in Blood by Automated count 5.02 x10*6/UL 4.2 0-6.30 [facility] ([facility]) Hematocrit [Volume Fraction] of Blood by Automated count 42.1 % 3 7.0-51.0 [facility] ([facility]) Hemoglobin [Mass/volume] in Blood 14.2 g/dL 12.0-18.0 [facility] ([facility]) MCV 83.8 fL 80.0-97.0 [facility] MCH 28.3 pg 26.0-32.0 [facility] ([place] [facility]) Erythrocyte distribution width [Ratio] by Automated count 12.9 % 11.6-13.7 [facility] ([facility]) MCHC 33.7 g/dL 31.0-38.0 [facility] ([place] [facility]) Platelets [#/volume] in Blood by Automated count 308 x10*3/UL 140-440 [facility] ([facility]) Lymph % 10.2 % 10.0-58.5 [facility]) Mid % 2.8 % 1.7-9.3 [facility] [facility] MPV 8.5 FL 7.8-11.0 [facility]) Neut % 87.0 % 37.0-92.0 [facility]) Mid # 0.4 x10*3/UL 0.1-0.6 [facility] ([facility]) Lymph # 1.4 x10*3/UL 0.6-4.1 [facility] ([facility]) Neut # 12.1 x10*3/UL 2.0-7.8 [facility] ([facility]) ID Date Data Source [id number] 10/17/2019 12:20:00 PM EST [facility] ([facility]) Name Value Range Interpretation Code Description Data Elizabeth rce(s) Supporting Document(s) Erythrocyte sedimentation rate by Westergren method 32 mm/hr 0-15 [facility] ([facility]) ID Date Data Source [id number] 10/16/2019 12:00:00 AM EST [facility] Veronica De Los Santos DO Patient Name: SANTOSH [id number] [facility] Date of : 1945[address] Date of Exam: [facility] [place] [id number]#: Fax: [phone] EXAM: US EXTREMITY VEINS, UNILATERALCLINICAL [...] extremity femoral andpopliteal venous system.Accredited by the [employer] in Vascular PeripheralUltrasound.DIANE Kaplan/Alvarado you for referring SANTOSH COOK to our office. Electronically Signed - MENDEZ HUIZAR MD 10/17/19 10:57 Name Value Range Interpretation Code Description Data Elizabeth rce(s) Supporting Document(s) ID Date Data Source [id number] 09/27/2019 09:36:00 AM EST [facility] Little GFR Left</content>
<content>ESRD GFR <15 on [employer]</content>
<content></content> Blood Urea Nitrogen 25 mg/dL 7-18 [facility] ([facility]) Sodium Level 144 meq/L 136-145 [facility] ([facility]) Potassium Serum 4.4 meq/L 3.5-5.1 [facility] ([facility]) Chloride Level 108 meq/L 98-107 [facility] ([facility] Carbon Dioxide Level 28 meq/L 21-32 [facility] ([facility]) Anion Gap 8 meq/L 8-16 [facility] Alt/SGPT 26 U/L 12-78 [facility] Ast/Sgot 13 U/L 7-37 [facility] ([facility]) Calcium Level 9.3 mg/dL 8.8-10.2 [facility] Alkaline Phosphatase 120 U/L 45-117 [facility] ([facility]) Bilirubin,Total 0.6 mg/dL 0.2-1.0 [facility] ([facility]) Total Protein 6.9 GM/DL 6.4-8.2 [facility] ([facility]) Albumin 3.8 GM/DL 3.2-5.2 [facility] Albumin/Globulin Ratio 1.23 1.00-1.93 [place] DENT ([facility]) ID Date Data Source [id number] 09/27/2019 09:36:00 AM EST [facility] ([facility]) Name Value Range Interpretation Code Description Data Elizabeth rce(s) Supporting Document(s) Erythrocyte sedimentation rate by Westergren method 18 mm/hr 0-30 [facility] ([facility]) ID Date Data Source [id number] 09/27/2019 09:36:00 AM EST [facility] ([facility]) Name Value Range Interpretation Code Description Data Elizabeth rce(s) Supporting Document(s) White Blood Count 8.2 10 4.0-10.0 [facility] ([facility] Red Blood Count 5.09 10 4.00-5.40 [facility] ([facility]) Hemoglobin 14.5 g/dL 12.0-15.5 [facility] ([facility]) Hematocrit 45.4 % 36.0-47.0 [facility] ([facility]) Mean Corpuscular Hemoglobin 28.5 pg 27.0-33.0 [facility] ([facility]) Mean Corpuscular Volume 89.2 [...] [facility] ID Date Data Source [id number] 09/27/2019 09:36:00 AM EST [facility] ([facility]) Name Value Range Interpretation Code Description Data Elizabeth rce(s) Supporting Document(s) Prothrombin Time 12.8 s 11.8-14.0 [facility] ([facility]) Inr 0.99 [facility] ([facility]) THERAPUTIC HUMAN INR VALUES INDICATIONS NORMAL RANGES PROPHYLAXIS/TREATMENT OF: VENOUS THROMBOSIS 2.0-3.0 PULMONARY EMBOLISM 2.0-3.0 PREVENTION OF SYSTEMIC EMBOLISM FROM: TISSUE HEART VALVES 2.0-3.0 ACUTE MYOCARDIAL INFARCTION 2.0-3.0 VALVULAR HEART DISEASE 2.0-3.0 ATRIAL FIBRILLATION 2.0-3.0 MECHANICAL VALVES(HIGH RISK) 2.5-3.5 RECURRENT MYOCARDIAL INFARCTION 2.5-3.5 ID Date Data Source [id number] 09/27/2019 09:36:00 AM EST [facility] ([facility]) Name Value Range Interpretation Code Description Data Elizabeth rce(s) Supporting Document(s) Prothrombin Time 12.8 s 11.8-14.0 [facility] ([facility]) Inr 0.99 [facility] ([facility] THERAPUTIC HUMAN INR VALUES INDICATIONS NORMAL RANGES PROPHYLAXIS/TREATMENT OF: VENOUS THROMBOSIS 2.0-3.0 PULMONARY EMBOLISM 2.0-3.0 PREVENTION OF SYSTEMIC EMBOLISM FROM: TISSUE HEART VALVES 2.0-3.0 ACUTE MYOCARDIAL INFARCTION 2.0-3.0 VALVULAR HEART DISEASE 2.0-3.0 ATRIAL FIBRILLATION 2.0-3.0 MECHANICAL VALVES(HIGH RISK) 2.5-3.5 RECURRENT MYOCARDIAL INFARCTION 2.5-3.5 ID Date Data Source [id number] 09/27/2019 09:36:00 AM EST [facility] ([facility]) Name Value Range Interpretation Code Description Data Elizabeth rce(s) Supporting Document(s) Creatinine For GFR 1.15 mg/dL 0.55-1.30 [facility] ([facility]) Glucose, Fasting 106 mg/dL 70-100 [facility] ([facility]) Glomerular Filtration Rate 49.1 MED ENT ([facility]) <content>Units are mL/min/1.73 m2</content>
<content></content>
<content>Chronic Kidney Disease Staging per NKF:</content>
<content></content>
<content>Stage I & II GFR >=60 Normal to Mildly Decreased</content>
<content>Stage III GFR 30- 59 Moderately Decreased</content>
<content>Stage IV GFR 15-29 Severely Decreased</content>
<content>Stage V GFR <15 Very Little GFR Left</content>
<content>ESRD GFR <15 on [employer]</content>
<content></content> Blood Urea Nitrogen 25 mg/dL 7-18 [facility] ([facility]) Potassium Serum 4.4 meq/L 3.5-5.1 [facility] ([facility]) Chloride Level 108 meq/L 98-107 [facility] ([facility]) Sodium Level 144 meq/L 136-145 [facility] ([facility]) Anion Gap 8 meq/L 8-16 [facility] ([facility]) Carbon Dioxide Level 28 meq/L 21-32 [facility] Calcium Level 9.3 mg/dL 8.8-10.2 [facility] ([facility]) Alkaline Phosphatase 120 U/L 45-117 [facility] ([facility]) Bilirubin,Total 0.6 mg/dL 0.2-1.0 [facility] ([facility]) Alt/SGPT 26 U/L 12-78 [facility] Ast/Sgot 13 U/L 7-37 [facility] ([facility]) Albumin 3.8 GM/DL 3.2-5.2 [facility] ([facility]) Total Protein 6.9 GM/DL 6.4-8.2 [facility] ([facility]) Albumin/Globulin Ratio 1.23 1.00-1.93 [facility] ([facility]) ID Date Data Source [id number] 09/27/2019 09:36:00 AM EST [facility] ([facility]) Name Value Range Interpretation Code Description Data Elizabeth rce(s) Supporting Document(s) Erythrocyte sedimentation rate by Westergren method 18 mm/hr 0-30 [facility] ([facility]) ID Date Data Source [id number] 09/27/2019 09:36:00 AM EST [facility] ([facility]) Name Value Range Interpretation Code Description Data Elizabeth rce(s) Supporting Document(s) White Blood Count 8.2 10 4.0-10.0 [facility] ([facility]) Hematocrit 45.4 % 36.0-47.0 [facility] ([facility]) Hemoglobin 14.5 g/dL 12.0-15.5 [facility] ([facility]) Red Blood Count 5.09 10 4.00-5.40 [facility] ([facility]) Mean Corpuscular Volume 89.2 fl 80.0-96.0 [facility] ([facility]) Mean Corpuscular HGB Conc 31.9 g/dL 32.0-36.5 MEDE NT ([facility]) Mean Corpuscular Hemoglobin 28.5 pg 27.0-33.0 [place] DENT ([facility]) Red Cell Distribution Width 13.3 % 11.5-14.5 [place] [facility] ([facility]) Nucleated Red Blood Cell % 0.0 % 0-0 MED E[facility] ([facility]) Platelet Count, Automated 305 10 150-450 MEDE NT ([facility]) ID Date Data Source [id number] 09/14/2019 12:00:00 AM EST [facility] Tonja Cardenas MD Patient Name: SANTOSH [id number] [facility] Date of : [address] Date of Exam: 09/14/2019[place] Resendez [id number] Fax: [phone] EXAM: MAMMO SCREENING WITH CADCLINICAL [...] rce(s) Supporting Document(s) ID Date Data Source [id number] 09/14/2019 10:12:00 AM EST [facility] ([facility]) Name Value Range Interpretation Code Description Data Elizabeth rce(s) Supporting Document(s) 3D Bi-Lateral Mammogram Laboratory [facility]) Dexa/Bone Density Laboratory test result [facility] ([facility]) Procedure Vital Signs ID Date Data Source [id number] Name Value Range Interpretation Code Description Data Source(s) Body mass index (BMI) [Ratio] 29.6 kg/m2 29.6 k g/m2 [facility] ([facility]) Body weight 153.00 [lb_av] 153.00 [lb_av] MEDEN T ([facility]) Body height 60.25 [in_i] 60.25 [in_i] [facility] 5'0.25" Heart rate 96 /min 96 /min [facility] ([facility]) Diastolic blood pressure 68 mm[Hg] 68 mm[Hg] [facility] ([facility]) RT Arm Systolic blood pressure 106 mm[Hg] 106 mm[Hg] M EDENT ([facility]) RT Arm Respiratory rate 14 /min 14 /min [facility] ( [facility] Body mass index (BMI) [Ratio] 29.4 kg/m2 29.4 k g/m2 [facility] ([facility]) Body weight 155.50 [lb_av] 155.50 [lb_av] MEDEN T ([facility]) Body height 61 [in_i] 61 [in_i] [facility] ([facility]) 5'1" Body temperature 96.8 [degF] 96.8 [degF] [facility] ([facility] Heart rate 75 /min 75 /min [facility] ([facility] Diastolic blood pressure 80 mm[Hg] 80 mm[Hg] [facility] ([facility]) Systolic blood pressure 124 mm[Hg] 124 mm[Hg] M EDENT ([facility]) Body height 60.25 [in_i] 60.25 [in_i] [facility] ([facility] 5'0.25" Heart rate 94 /min 94 /min [facility] ([facility]) Diastolic blood pressure 72 mm[Hg] 72 mm[Hg] [facility] ([facility]) RT Arm Systolic blood pressure 122 mm[Hg] 122 mm[Hg] [facility] RT Arm Body mass index (BMI) [Ratio] 30.3 kg/m2 30.3 k g/m2 [facility] ([facility]) Oxygen saturation in Arterial blood by Pulse oximetry 99 % 99 % [facility] ([facility]) RM Air Body weight 156.50 [lb_av] 156.50 [lb_av] MEDEN T ([facility]) Body mass index (BMI) [Ratio] 30.0 kg/m2 30.0 k g/m2 [facility] ([facility]) Oxygen saturation in Arterial blood by Pulse oximetry --post exerci se 92 % 92 % [facility] ([facility]) RM Air Body weight 155.00 [lb_av] 155.00 [lb_av] MEDEN T ([facility]) Body height 60.25 [in_i] 60.25 [in_i] [facility] ([facility]) 5'0.25" Heart rate 117 /min 117 /min [facility] ([facility]) Diastolic blood pressure 70 mm[Hg] 70 mm[Hg] [facility] ([facility]) RT Arm Systolic blood pressure 132 mm[Hg] 132 mm[Hg] [facility]) RT Arm Body mass index (BMI) [Ratio] 28.0 kg/m2 28.0 k g/m2 [facility] ([facility]) Body height 62 [in_i] 62 [in_i] [facility] ([facility]) 5'2" Body weight 153.00 [lb_av] 153.00 [lb_av] MEDEN T ([facility]) Body temperature 98.0 [degF] 98.0 [degF] [facility] ([facility]) Oxygen saturation in Arterial blood by Pulse oximetry 97 % 97 % [facility] ([facility], [facility]) Respiratory rate 18 /min 18 /min [facility] ( [facility], [facility]) Heart rate 90 /min 90 /min [facility] ([facility], [facility]) Diastolic blood pressure 68 mm[Hg] 68 mm[Hg] [facility] ([facility], [facility]) Systolic blood pressure 96 mm[Hg] 96 mm[Hg] M EDENT ([facility]) Body mass index (BMI) [Ratio] 28.5 kg/m2 28.5 k g/m2 [facility] ([facility] Body weight 149.50 [lb_av] 149.50 [lb_av] MEDEN T ([facility] ) Body height 60.75 [in_i] 60.75 [in_i] [facility] ([facility] ) 5'0.75" Body temperature 97.5 [degF] 97.5 [degF] [facility] ([facility] ) Body mass index (BMI) [Ratio] 29.7 kg/m2 29.7 k g/m2 [facility] ([facility]) Oxygen saturation in Arterial blood by Pulse oximetry --post exerci se 94 % 94 % [facility] ([facility]) RM Air Body weight 153.12 [lb_av] 153.12 [lb_av] MEDEN T ([facility]) Body height 60.25 [in_i] 60.25 [in_i] [facility] 5'0.25" Heart rate 87 /min 87 /min [facility] ([facility]) Diastolic blood pressure 60 mm[Hg] 60 mm[Hg] [facility] ([facility]) RT Arm Systolic blood pressure 92 mm[Hg] 92 mm[Hg] M EDENT ([facility]) RT Arm Body temperature 97.2 [degF] 97.2 [degF] [facility] ([facility] Body mass index (BMI) [Ratio] 31.6 kg/m2 31.6 k g/m2 [facility] ([facility]) Oxygen saturation in Arterial blood by Pulse oximetry --post exerci se 97 % 97 % [facility] ([facility]) RM Air Body weight 163.12 [lb_av] 163.12 [lb_av] MEDEN T ([facility]) Body height 60.25 [in_i] 60.25 [in_i] [facility] ([facility]) 5'0.25" Heart rate 76 /min 76 /min [facility] Diastolic blood pressure 58 mm[Hg] 58 mm[Hg] [facility] ([facility]) RT Arm Systolic blood pressure 118 mm[Hg] 118 mm[Hg] [facility] ([facility]) RT Arm Body mass index (BMI) [Ratio] 31.0 kg/m2 31.0 k g/m2 [facility] ([facility]) Oxygen saturation in Arterial blood by Pulse oximetry 99 % 99 % [facility] ([facility]) Body weight 160.00 [lb_av] 160.00 [lb_av] MEDEN T ([facility]) Body height 60.25 [in_i] 60.25 [in_i] [facility] ([facility]) 5'0.25" Heart rate 70 /min 70 /min [facility] ([facility]) Diastolic blood pressure 70 mm[Hg] 70 mm[Hg] [facility]) Systolic blood pressure 114 mm[Hg] 114 mm[Hg] [facility] ([facility]) Body mass index (BMI) [Ratio] 31.4 kg/m2 31.4 k g/m2 [facility] ([facility]) Oxygen saturation in Arterial blood by Pulse oximetry 97 % 97 % [facility] ([facility]) Body weight 162.00 [lb_av] 162.00 [lb_av] MEDEN T ([facility]) Body height 60.25 [in_i] 60.25 [in_i] [facility] ([facility]) 5'0.25" Heart rate 71 /min 71 /min [facility] Diastolic blood pressure 70 mm[Hg] 70 mm[Hg] [facility] ([facility]) Systolic blood pressure 116 mm[Hg] 116 mm[Hg] [facility] ([facility]) Body mass index (BMI) [Ratio] 32.3 kg/m2 32.3 k g/m2 [facility] ([facility]) Oxygen saturation in Arterial blood by Pulse oximetry 95 % 95 % [facility]) RM Air Body weight 167.00 [lb_av] 167.00 [lb_av] MEDEN T ([facility]) Body height 60.25 [in_i] 60.25 [in_i] [facility] ([facility]) 5'0.25" Body mass index (BMI) [Ratio] 32.1 kg/m2 32.1 k g/m2 [facility]) Body weight 165.50 [lb_av] 165.50 [lb_av] MEDEN T ([facility]) Body height 60.25 [in_i] 60.25 [in_i] [facility] ([facility]) 5'0.25" Heart rate 92 /min 92 /min [facility] ([facility]) Diastolic blood pressure 74 mm[Hg] 74 mm[Hg] [facility]) RT Arm Systolic blood pressure 136 mm[Hg] 136 mm[Hg] [facility] ([facility]) RT Arm Body mass index (BMI) [Ratio] 32.8 kg/m2 32.8 k g/m2 [facility] ([facility]) Oxygen saturation in Arterial blood by Pulse oximetry --post exerci se 95 % 95 % [facility]) RM Air Body weight 169.50 [lb_av] 169.50 [lb_av] MEDEN T ([facility]) Body height 60.25 [in_i] 60.25 [in_i] [facility] ([facility]) 5'0.25" Heart rate 84 /min 84 /min [facility] ([facility]) Diastolic blood pressure 52 mm[Hg] 52 mm[Hg] [facility] ([facility]) RT Arm Systolic blood pressure 122 mm[Hg] 122 mm[Hg] [facility] ([facility]) RT Arm Body mass index (BMI) [Ratio] 32.6 kg/m2 32.6 k g/m2 [facility] ([facility]) Body weight 168.50 [lb_av] 168.50 [lb_av] MED[facility] T ([facility]) Body height 60.25 [in_i] 60.25 [in_i] [facility] ([facility]) 5'0.25" Heart rate 88 /min 88 /min [facility] ([facility]) Diastolic blood pressure 58 mm[Hg] 58 mm[Hg] [facility]) RT Arm Systolic blood pressure 102 mm[Hg] 102 mm[Hg] [facility] ([facility]) RT Arm Body mass index (BMI) [Ratio] 33.4 kg/m2 33.4 k g/m2 [facility]) Oxygen saturation in Arterial blood by Pulse oximetry --post exerci se 94 % 94 % [facility] ([facility]) RM Air Body weight 172.50 [lb_av] 172.50 [lb_av] MED[facility] T ([facility]) Body height 60.25 [in_i] 60.25 [in_i] [facility] ([facility]) 5'0.25" Heart rate 80 /min 80 /min [facility] ([facility]) Diastolic blood pressure 80 mm[Hg] 80 mm[Hg] [facility]) RT Arm Systolic blood pressure 122 mm[Hg] 122 mm[Hg] [facility] ([facility]) RT Arm Body mass index (BMI) [Ratio] 33.3 kg/m2 33.3 k g/m2 [facility] ([facility]) Oxygen saturation in Arterial blood by Pulse oximetry --post exerci se 96 % 96 % [facility] ([facility]) RM Air Body weight 172.00 [lb_av] 172.00 [lb_av] MEDEN T ([facility]) Body height 60.25 [in_i] 60.25 [in_i] [facility] ([facility]) 5'0.25" Heart rate 92 /min 92 /min [facility] ([facility]) Diastolic blood pressure 74 mm[Hg] 74 mm[Hg] [facility] ([facility]) RT Arm Systolic blood pressure 140 mm[Hg] 140 mm[Hg] M EDENT ([facility]) RT Arm Body mass index (BMI) [Ratio] 33.2 kg/m2 33.2 k g/m2 [facility] ([facility]) Body weight 171.38 [lb_av] 171.38 [lb_av] MEDEN T ([facility]) Body height 60.25 [in_i] 60.25 [in_i] [facility] ([facility] 5'0.25" Heart rate 96 /min 96 /min [facility] ([facility]) Diastolic blood pressure 64 mm[Hg] 64 mm[Hg] [facility] ([facility]) RT Arm Systolic blood pressure 146 mm[Hg] 146 mm[Hg] [facility]) RT Arm Body mass index (BMI) [Ratio] 33.3 kg/m2 33.3 k g/m2 [facility] ([facility]) Oxygen saturation in Arterial blood by Pulse oximetry 96 % 96 % [facility] ([facility]) RM Air Body weight 172.00 [lb_av] 172.00 [lb_av] MEDEN T ([facility]) Body height 60.25 [in_i] 60.25 [in_i] [facility] ([facility]) 5'0.25" Heart rate 90 /min 90 /min [facility] ([facility]) Diastolic blood pressure 70 mm[Hg] 70 mm[Hg] [facility] ([facility]) Systolic blood pressure 118 mm[Hg] 118 mm[Hg] [facility]) Respiratory rate 20 /min 20 /min [facility] ( [facility] ) Body mass index (BMI) [Ratio] 317.5 kg/m2 317.5 kg/m2 [facility] ([facility] ) Body weight 1708.00 [lb_av] 1708.00 [lb_av] MED ENT ([facility] ) Body height 61.5 [in_i] 61.5 [in_i] [facility] ([facility]) 5'1.50" Body temperature [...] [Ratio] 32.2 kg/m2 32.2 k g/m2 [facility] ([facility]) Body weight 166.50 [lb_av] 166.50 [lb_av] MEDEN T ([facility]) Body height 60.25 [in_i] 60.25 [in_i] [facility] ([facility]) 5'0.25" Heart rate 88 /min 88 /min MED[facility] ([facility]) Diastolic blood pressure 78 mm[Hg] 78 mm[Hg] [facility] ([facility]) RT Arm Systolic blood pressure 128 mm[Hg] 128 mm[Hg] M EDENT ([facility]) RT Arm Diastolic blood pressure 69 mm[Hg] 69 mm[Hg] eCW1 ([facility]) Systolic blood pressure 142 mm[Hg] 142 mm[Hg] e CW1 ([facility]) Body temperature 97.2 [degF] 97.2 [degF] eCW1 ( [facility]) Respiratory rate 16 /min 16 /min eCW1 ([facility]) Heart rate 78 /min 78 /min eCW1 ([facility] hospital) Body mass index (BMI) [Ratio] 31.16 kg/m2 31.16 kg/m2 eCW1 ([facility]) Body height 62 [in_us] 62 [in_us] eCW1 ([facility]) Body weight Measured 170.4 [lb_av] 170.4 [lb_av ] eCW1 ([facility]) Diastolic blood pressure 72 mm[Hg] 72 mm[Hg] eCW1 ([facility]) Systolic blood pressure 140 mm[Hg] 140 mm[Hg] e CW1 ([facility]) Body temperature 96.0 [degF] 96.0 [degF] eCW1 ( [facility]) Respiratory rate 16 /min 16 /min eCW1 ([facility]) Heart rate 104 /min 104 /min eCW1 ([facility] hospital) Body mass index (BMI) [Ratio] 31.24 kg/m2 31.24 kg/m2 eCW1 ([facility]) Body height 62 [in_us] 62 [in_us] eCW1 ([facility]) Body weight Measured 170.8 [lb_av] 170.8 [lb_av ] eCW1 ([facility]) Body mass index (BMI) [Ratio] 32.0 kg/m2 32.0 k g/m2 MED[facility] ([facility]) Body weight 172.00 [lb_av] 172.00 [lb_av] MEDEN T ([facility]) Body height 61.5 [in_i] 61.5 [in_i] MED[facility] ([facility]) 5'1.50" Diastolic blood pressure 73 mm[Hg] 73 mm[Hg] eCW1 ([facility]) Systolic blood pressure 131 mm[Hg] 131 mm[Hg] e CW1 ([facility]) Body temperature 96.1 [degF] 96.1 [degF] eCW1 ( [facility]) Respiratory rate 16 /min 16 /min eCW1 ([facility]) Heart rate 85 /min 85 /min eCW1 (Critical [facility] hospital) Body mass index (BMI) [Ratio] 31.64 kg/m2 31.64 kg/m2 eCW1 ([facility]) Body height 62 [in_us] 62 [in_us] eCW1 ([facility]) Body weight Measured 173.0 [lb_av] 173.0 [lb_av ] eCW1 ([facility]) Diastolic blood pressure 75 mm[Hg] 75 mm[Hg] eCW1 ([facility]) Systolic blood pressure 146 mm[Hg] 146 mm[Hg] e CW1 ([facility]) Body temperature 97.5 [degF] 97.5 [degF] eCW1 ( [facility]) Respiratory rate 16 /min 16 /min eCW1 ([facility]) Heart rate 87 /min 87 /min eCW1 (Critical [facility] hospital) Body mass index (BMI) [Ratio] 30.98 kg/m2 30.98 kg/m2 eCW1 ([facility]) Body height 62 [in_us] 62 [in_us] eCW1 ([facility]) Body weight Measured 169.4 [lb_av] 169.4 [lb_av ] eCW1 ([facility])
--- NOTE | 2020-09-02 08:23 | ECGEPIP ---
[facility] - ED Test Date: 2020-09-02 Pat Name: SANTOSH ARNDT Department: Room: - Gender: Female Hotel [employer] Concierge: ana : 1945 Requested By: BYRON Nieto Order Number: [id number] Reading MD: Maycol Dickinson Measurements Intervals [place] Rate: 83 P: 64 SC: 132 QRS: 25 QRSD: 125 T: 9 QT: 420 QTc: 495 Interpretive Statements SINUS RHYTHM RIGHT BUNDLE BRANCH BLOCK SIMILAR TO 06/23/20 Electronically Signed on 09-02-2020 8:23:32 EST by Maycol Dickinson
[2020-09-02] MEDS ORDERED: BACL1TAB8 PO (08:44)
[2020-09-02] MEDS ORDERED: MED REC COMMENT (08:44)
[2020-09-02] MEDS ORDERED: XARE15TA PO (08:44)
[2020-09-02] MEDS ORDERED: traMADol 50 MG TAB PO PRN (09:00)
[2020-09-02] MEDS ORDERED: ESCITALOPRAM OXALATE 10 MG TAB (LEXAPRO) PO SCH (09:00)
[2020-09-02] MEDS ORDERED: CYCLOBENZAPRINE 5MG TABLET PO PRN (09:00)
[2020-09-02] MEDS ORDERED: tiZANidine 4 MG TAB PO PRN (09:00)
[2020-09-02] MEDS ORDERED: ADVAIR HFA 115/21MCG INHALER INH PRN (09:00)
--- OUTSIDE RECORDS SUMMARY | 2020-09-02 09:28 | CCD ---
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 g/dL 3.4-5.0 [facility] ([facility]) Glomerular filtration rate/1.73 sq M pre dicted among non-blacks [Volume Rate/Area] in Serum or Plasma by Creatinine-based formula (MDRD) 34 mL/min [facility] ([place] [facility]) Proteinase 3 Ab [Units/volume] in Serum 7.1 g/dL 6.4-8.2 [facility] ([place] [facility]) A/G Ratio 1.22 CALC 1.00-1.90 [facility] ([place] [facility] Glomerular filtration rate/1.73 sq M pre dicted among blacks [Volume Rate/Area] in Serum or Plasma by Creatinine-based formula (MDRD) 41 mL/min [facility] [facility] <content>CHRONIC KIDNEY DISEASE STAGING PER NKF</content>
<content></content>
<content>STAGE I & II GFR >= 60 NORMAL TO MILDLY DECREASED</content>
<content>STAGE III GFR 30-59 MODERATELY DECREASED</content>
<content>STAGE IV GFR 15-29 SEVERELY DECREASED</content>
<content>STAGE V GFR <15 VERY LITTLE GFR LEFT</content>
<content>ESRD GFR <15 ON HEAD WELL PULLER</content>
<content></content> ID Date Data Source [id number] 08/05/2020 09:09:00 AM EST [facility] ([facility]) Name Value Range Interpretation Code Description Data Elizabeth rce(s) Supporting Document(s) Leukocytes [#/volume] in Blood by Automated count 8.0 x10*3/UL 4.1-10 .9 [facility] ([place] [facility]) Erythrocytes [#/volume] in Blood by Automated count 4.97 x10*6/UL 4.2 0-6.30 [facility] ([place] [facility]) Hemoglobin [Mass/volume] in Blood 14.4 g/dL 12.0-18.0 [facility] ([place] [facility] Hematocrit [Volume Fraction] of Blood by Automated count 41.7 % 3 7.0-51.0 [facility] ([place] [facility]) MCH 29.0 pg 26.0-32.0 [facility] ([place] [facility]) MCV 83.8 fL 80.0-97.0 [facility] ([facility]) Erythrocyte distribution width [Ratio] by Automated count 12.9 % 11.6-13.7 [facility] ([place] [facility]) MCHC 34.5 g/dL 31.0-38.0 [facility] ([place] [facility]) Lymph % 20.5 % 10.0-58.5 [facility] ([facility]) Platelets [#/volume] in Blood by Automated count 440 x10*3/UL 140-440 [facility] ([facility]) MPV 7.7 FL 7.8-11.0 [facility] ([place] [facility]) Neut % 75.1 % 37.0-92.0 [facility] ([place] [facility]) Mid % 4.4 % 1.7-9.3 [facility] ([place] [facility]) Lymph # 1.6 x10*3/UL 0.6-4.1 [facility] ([facility]) Mid # 0.4 x10*3/UL 0.1-0.6 [facility] ([facility]) Neut # 6.0 x10*3/UL 2.0-7.8 [facility] ([place] [facility]) ID Date Data Source [id number] 07/02/2020 10:30:00 AM EST [facility] Name Value Range Interpretation Code Description Data Elizabeth rce(s) Supporting Document(s) SARS coronavirus 2 RNA [facility] This lab was ordered by [facility] and reported by [facility]. ID Date Data Source [id number] 07/02/2020 10:25:00 AM EST [facility] ([facility]) Name Value Range Interpretation Code Description Data Elizabeth rce(s) Supporting Document(s) Total Bilirubin 0.8 mg/dL 0.2-1.0 [facility] ([facility]) Alkaline phosphatase isoenzyme [Units/volume] in Serum or Pl asma 152 mg/dL 46-116 [facility] ([place] [facility]) Aspartate aminotransferase [Enzymatic activity/volume] in Serum or Plasma 55 U/L 15-37 [facility] ([facility] ) Albumin [Mass/volume] in Serum or Plasma 4.1 g/dL 3.4-5.0 [facility] ([facility]) Alanine aminotransferase [Enzymatic activity/volume] in Seru m or Plasma 96 U/L 12-78 [facility] ([place] [facility]) A/G Ratio 1.08 CALC 1.00-1.90 [facility] ([place] [facility]) Direct Bilirubin 0.2 mg/dL 0.0-0.2 [facility] ([facility]) Proteinase 3 Ab [Units/volume] in Serum 7.9 g/dL 6.4-8.2 [facility] ([place] [facility] ID Date Data Source [id number] 06/26/2020 09:48:00 AM EST [facility] ([facility]) Name Value Range Interpretation Code Description Data Elizabeth rce(s) Supporting Document(s) Alkaline phosphatase isoenzyme [Units/volume] in Serum or Pl asma 136 mg/dL 46-116 [facility] ([place] [facility]) Total Bilirubin 0.8 mg/dL 0.2-1.0 [facility] ([facility]) Alanine aminotransferase [Enzymatic activity/volume] in Seru m or Plasma 103 U/L 12-78 [facility] ([place] [facility]) Aspartate aminotransferase [Enzymatic activity/volume] in Serum or Plasma 62 U/L 15-37 [facility] ([place] [facility] ) Albumin [Mass/volume] in Serum or Plasma 3.7 g/dL 3.4-5.0 [facility] ([place] [facility]) Proteinase 3 Ab [Units/volume] in Serum 6.8 g/dL 6.4-8.2 [facility] ([place] [facility] Direct Bilirubin 0.2 mg/dL 0.0-0.2 [facility] ([facility]) A/G Ratio 1.19 CALC 1.00-1.90 [facility] ([facility]) ID Date Data Source [id number] 06/23/2020 09:11:00 AM EST [facility] ([facility]) Name Value Range Interpretation Code Description Data Elizabeth rce(s) Supporting Document(s) Prothrombin Time 18.2 s 12.5-14.3 [facility] ([facility] Inr 1.48 [facility] ([facility]) THERAPUTIC HUMAN INR VALUES INDICATIONS NORMAL RANGES PROPHYLAXIS/TREATMENT OF: VENOUS THROMBOSIS 2.0-3.0 PULMONARY EMBOLISM 2.0-3.0 PREVENTION OF SYSTEMIC EMBOLISM FROM: TISSUE HEART VALVES 2.0-3.0 ACUTE MYOCARDIAL INFARCTION 2.0-3.0 VALVULAR HEART DISEASE 2.0-3.0 ATRIAL FIBRILLATION 2.0-3.0 MECHANICAL VALVES(HIGH RISK) 2.5-3.5 RECURRENT MYOCARDIAL INFARCTION 2.5-3.5 ID Date Data Source [id number] 06/23/2020 09:11:00 AM EST [facility] ([facility]) Name Value Range Interpretation Code Description Data Elizabeth rce(s) Supporting Document(s) Blood Urea Nitrogen 17 mg/dL 7-18 [facility] ([facility]) Glucose, Fasting 115 mg/dL 70-100 [facility] ([facility]) Creatinine For GFR 1.24 mg/dL 0.55-1.30 [facility] ([facility]) Glomerular Filtration Rate 44.9 [facility] ([place] [facility]) <content>Units are mL/min/1.73 m2</content>
<content></content>
<content>Chronic Kidney Disease Staging per NKF:</content>
<content></content>
<content>Stage I & II GFR >=60 Normal to Mildly Decreased</content>
<content>Stage III GFR 30- 59 Moderately Decreased</content>
<content>Stage IV GFR 15-29 Severely Decreased</content>
<content>Stage V GFR <15 Very Little GFR Left</content>
<content>ESRD GFR <15 on HEAD WELL PULLER</content>
<content></content> Sodium Level 139 meq/L 136-145 [facility] ([place] [facility]) Chloride Level 107 meq/L 98-107 [facility] ([facility]) Potassium Serum 5.2 meq/L 3.5-5.1 [facility] ([facility]) Carbon Dioxide Level 28 meq/L 21-32 [facility] ([facility]) Anion Gap 4 meq/L 8-16 [facility] ([place] [facility]) Alt/SGPT 100 U/L 12-78 [facility] ([place] [facility]) Ast/Sgot 60 U/L 7-37 [facility] ([place] [facility]) Calcium Level 9.5 mg/dL 8.8-10.2 [facility] ([facility]) Bilirubin,Total 0.7 mg/dL 0.2-1.0 [facility] ([facility]) Total Protein 6.9 GM/DL 6.4-8.2 [facility] ([facility]) Alkaline Phosphatase 134 U/L 45-117 [facility] ([facility]) Albumin/Globulin Ratio 1.2 1.2-2.2 [facility] ([place] [facility]) Albumin 3.7 GM/DL 3.2-5.2 [facility] ([place] [facility]) ID Date Data Source [id number] 06/23/2020 09:11:00 AM EST [facility] ([facility]) Name Value Range Interpretation Code Description Data Elizabeth rce(s) Supporting Document(s) Red Blood Count 4.91 10 4.00-5.40 [facility] ([facility]) White Blood Count 8.8 10 4.0-10.0 [facility] Hematocrit 44.5 % 36.0-47.0 [facility] ([place] [facility]) Mean Corpuscular Volume 90.6 fl 80.0-96.0 [facility] ([place] [facility]) Hemoglobin 13.7 g/dL 12.0-15.5 [facility] ([place] [facility]) Mean Corpuscular HGB Conc 30.8 g/dL 32.0-36.5 [facility] NT ([place] [facility]) Mean Corpuscular Hemoglobin 27.9 pg 27.0-33.0 ME D[facility] ([place] [facility]) Nucleated Red Blood Cell % 0.0 % 0-0 MED E[facility] ([place] [facility]) Platelet Count, Automated 329 10 150-450 [facility] NT ([place] [facility]) Red Cell Distribution Width 13.2 % 11.5-14.5 ME [facility] ([place] [facility]) ID Date Data Source [id number] 06/23/2020 09:11:00 AM EST [facility] ([facility]) Name Value Range Interpretation Code Description Data Elizabeth rce(s) Supporting Document(s) Erythrocyte sedimentation rate by Westergren method 25 mm/hr 0-30 [facility] ([place] [facility]) ID Date Data Source [id number] 06/23/2020 09:11:00 AM EST [facility] ([facility]) Name Value Range Interpretation Code Description Data Elizabeth rce(s) Supporting Document(s) Erythrocyte sedimentation rate by Westergren method 25 mm/hr 0-30 [facility] ([facility]) ID Date Data Source [id number] 06/23/2020 09:11:00 AM EST [facility] ([facility]) Name Value Range Interpretation Code Description Data Elizabeth rce(s) Supporting Document(s) White Blood Count 8.8 10 4.0-10.0 [facility] ([facility]) Hematocrit 44.5 % 36.0-47.0 [facility] ([facility]) Hemoglobin 13.7 g/dL 12.0-15.5 [facility] ([facility]) Red Blood Count 4.91 10 4.00-5.40 [facility] ([facility]) Mean Corpuscular Volume 90.6 fl 80.0-96.0 M EDENT ([facility]) Mean Corpuscular Hemoglobin 27.9 pg 27.0-33.0 [facility] ([facility]) Mean Corpuscular HGB Conc 30.8 g/dL 32.0-36.5 [facility] ([facility]) Nucleated Red Blood Cell % 0.0 % 0-0 MED [facility] ([facility]) Red Cell Distribution Width 13.2 % 11.5-14.5 [facility] ([facility]) Platelet Count, Automated 329 10 150-450 [facility] ([facility]) ID Date Data Source [id number] 06/23/2020 09:11:00 AM EST [facility] ([facility]) Name Value Range Interpretation Code Description Data Elizabeth rce(s) Supporting Document(s) Glucose, Fasting 115 mg/dL 70-100 [facility] ([facility]) Blood Urea Nitrogen 17 mg/dL 7-18 [facility] ([facility]) Glomerular Filtration Rate 44.9 MED ENT ([facility]) <content>Units are mL/min/1.73 m2</content>
<content></content>
<content>Chronic Kidney Disease Staging per NKF:</content>
<content></content>
<content>Stage I & II GFR >=60 Normal to Mildly Decreased</content>
<content>Stage III GFR 30- 59 Moderately Decreased</content>
<content>Stage IV GFR 15-29 Severely Decreased</content>
<content>Stage V GFR <15 Very Little GFR Left</content>
<content>ESRD GFR <15 on HEAD WELL PULLER</content>
<content></content> Creatinine For GFR 1.24 mg/dL 0.55-1.30 [facility] ([facility]) Potassium Serum 5.2 meq/L 3.5-5.1 [facility] ([facility]) Sodium Level 139 meq/L 136-145 [facility] ([facility]) Chloride Level 107 meq/L 98-107 [facility] ([facility]) Carbon Dioxide Level 28 meq/L 21-32 [facility]) Calcium Level 9.5 mg/dL 8.8-10.2 [facility] ([facility]) Anion Gap 4 meq/L 8-16 [facility] ([facility]) Alt/SGPT 100 U/L 12-78 [facility] ([facility]) Ast/Sgot 60 U/L 7-37 [facility] ([facility]) Alkaline Phosphatase 134 U/L 45-117 [facility] ( [facility]) Albumin 3.7 GM/DL 3.2-5.2 [facility] ([facility]) Total Protein 6.9 GM/DL 6.4-8.2 [facility] ([facility]) Bilirubin,Total 0.7 mg/dL 0.2-1.0 [facility] ([facility]) Albumin/Globulin Ratio 1.2 1.2-2.2 [facility] ([facility]) ID Date Data Source [id number] 06/23/2020 09:11:00 AM EST [facility] ([facility]) Name Value Range Interpretation Code Description Data Elizabeth rce(s) Supporting Document(s) Prothrombin Time 18.2 s 12.5-14.3 [facility] ([facility]) Inr 1.48 [facility] ([facility]) THERAPUTIC HUMAN INR VALUES INDICATIONS NORMAL RANGES PROPHYLAXIS/TREATMENT OF: VENOUS THROMBOSIS 2.0-3.0 PULMONARY EMBOLISM 2.0-3.0 PREVENTION OF SYSTEMIC EMBOLISM FROM: TISSUE HEART VALVES 2.0-3.0 ACUTE MYOCARDIAL INFARCTION 2.0-3.0 VALVULAR HEART DISEASE 2.0-3.0 ATRIAL FIBRILLATION 2.0-3.0 MECHANICAL VALVES(HIGH RISK) 2.5-3.5 RECURRENT MYOCARDIAL INFARCTION 2.5-3.5 ID Date Data Source [id number] 05/13/2020 08:48:00 AM EDT [facility] ([facility]) Name Value Range Interpretation Code Description Data Elizabeth rce(s) Supporting Document(s) Thyrotropin [Units/volume] in Serum or Plasma by Detec tion limit <= 0.05 mIU/L 6.74 uIU/mL 0.36-3.74 [facility] ([place] [facility] ) ID Date Data Source [id number] 05/13/2020 08:48:00 AM EDT [facility] ([facility]) Name Value Range Interpretation Code Description Data Elizabeth rce(s) Supporting Document(s) Glucose [Mass/volume] in Serum or Plasma 105 mg/dL 74-99 [facility] ([place] [facility]) 100-125 mg/dL PRE-DIABETES/FASTING >126 mg/dL DIABETES/FASTING Urea nitrogen [Mass/volume] in Serum or Plasma 21 mg/dL 7-18 [facility] ([place] [facility]) Sodium [Moles/volume] in Serum or Plasma 140 meq/L 136-145 [facility] ([place] [facility]) Potassium [Moles/volume] in Serum or Plasma 4.1 meq/L 3.5-5.1 [facility] ([place] [facility]) Creatinine 1.2 mg/dL 0.6-1.3 [facility] ([facility]) Carbon dioxide, total [Moles/volume] in Serum or Plasma 26 meq/L 21 -32 [facility] ([place] [facility]) Calcium [Mass/volume] in Serum or Plasma 8.7 mg/dL 8.5-10.1 [facility] ([place] [facility]) Chloride [Moles/volume] in Serum or Plasma 103 meq/L 98-107 [facility] ([place] [facility]) Aspartate aminotransferase [Enzymatic activity/volume] in Serum or Plasma 34 U/L 15-37 [facility] ([place] [facility] ) Total Bilirubin 0.9 mg/dL 0.2-1.0 [facility] ([facility]) Alkaline phosphatase isoenzyme [Units/volume] in Serum or Pl asma 116 mg/dL 46-116 [facility] ([place] [facility]) Alanine aminotransferase [Enzymatic activity/volume] in Seru m or Plasma 59 U/L 12-78 [facility] ([place] [facility]) Albumin [Mass/volume] in Serum or Plasma 3.7 g/dL 3.4-5.0 [facility] [facility] Glomerular filtration rate/1.73 sq M pre dicted among non-blacks [Volume Rate/Area] in Serum or Plasma by Creatinine-based formula (MDRD) 44 mL/min [facility] ([place] [facility] A/G Ratio 1.06 CALC 1.00-1.90 [facility] ([place] [facility]) Proteinase 3 Ab [Units/volume] in Serum 7.2 g/dL 6.4-8.2 [facility] ([place] [facility] Glomerular filtration rate/1.73 sq M pre dicted among blacks [Volume Rate/Area] in Serum or Plasma by Creatinine-based formula (MDRD) 53 mL/min [facility] ([place] [facility] <content>CHRONIC KIDNEY DISEASE STAGING PER NKF</content>
<content></content>
<content>STAGE I & II GFR >= 60 NORMAL TO MILDLY DECREASED</content>
<content>STAGE III GFR 30-59 MODERATELY DECREASED</content>
<content>STAGE IV GFR 15-29 SEVERELY DECREASED</content>
<content>STAGE V GFR <15 VERY LITTLE GFR LEFT</content>
<content>ESRD GFR <15 ON HEAD WELL PULLER</content>
<content></content> ID Date Data Source [id number] 05/13/2020 08:47:00 AM EDT [facility] ([facility]) Name Value Range Interpretation Code Description Data Elizabeth rce(s) Supporting Document(s) Leukocytes [#/volume] in Blood by Automated count 8.8 x10*3/UL 4.1-10 .[address] [facility] ([place] [facility] Hematocrit [Volume Fraction] of Blood by Automated count 40.1 % 3 7.0-51.0 [facility] [facility] Hemoglobin [Mass/volume] in Blood 13.7 g/dL 12.0-18.0 [facility] ([place] [facility]) Erythrocytes [#/volume] in Blood by Automated count 4.75 x10*6/UL 4.2 0-6.30 [facility] ([place] [facility]) MCV 84.4 fL 80.0-97.0 [facility] ([place] [facility]) MCH 29.0 pg 26.0-32.0 [facility] ([place] [facility]) Erythrocyte distribution width [Ratio] by Automated count 13.2 % 11.6-13.7 [facility] ([place] [facility]) MCHC 34.3 g/dL 31.0-38.0 [facility] ([place] [facility]) Platelets [#/volume] in Blood by Automated count 338 x10*3/UL 140-440 [facility] ([place] [facility]) MPV 7.6 FL 7.8-11.0 [facility] ([place] [facility]) Lymph % 16.0 % 10.0-58.5 [facility] ([place] [facility]) Mid % 4.3 % 1.7-9.3 [facility] ([place] [facility]) Neut % 79.7 % 37.0-92.0 [facility] ([place] [facility] Lymph # 1.4 x10*3/UL 0.6-4.1 [facility] ([place] [facility]) Neut # 7.0 x10*3/UL 2.0-7.8 [facility] ([place] [facility]) Mid # 0.4 x10*3/UL 0.1-0.6 [facility] ([place] [facility]) ID Date Data Source [id number] 05/08/2020 01:27:00 PM EDT [facility] ([facility]) Name Value Range Interpretation Code Description Data Elizabeth rce(s) Supporting Document(s) Laboratory test finding (navigational concept) Laboratory test result [facility]) ID Date Data Source [id number] 04/07/2020 11:59:00 AM EDT [facility] ([facility]) Name Value Range Interpretation Code Description Data Elizabeth rce(s) Supporting Document(s) Thyrotropin [Units/volume] in Serum or Plasma by Detec tion limit <= 0.05 mIU/L 1.02 uIU/mL 0.36-3.74 [facility] ([facility] ) ID Date Data Source [id number] 04/07/2020 11:59:00 AM EDT [facility] ([facility]) Name Value Range Interpretation Code Description Data Elizabeth rce(s) Supporting Document(s) Urea nitrogen [Mass/volume] in Serum or Plasma 18 mg/dL 7-18 [facility] ([facility]) Creatinine 1.3 mg/dL 0.6-1.3 [facility] ([facility]) Glucose [Mass/volume] in Serum or Plasma 106 mg/dL 74-99 [facility] ([facility]) 100-125 mg/dL PRE-DIABETES/FASTING >126 mg/dL DIABETES/FASTING Sodium [Moles/volume] in Serum or Plasma 140 meq/L 136-145 [facility] ([facility]) Chloride [Moles/volume] in Serum or Plasma 102 meq/L 98-107 [facility] ([facility]) Potassium [Moles/volume] in Serum or Plasma 5.1 meq/L 3.5-5.1 [facility] ([facility]) Carbon dioxide, total [Moles/volume] in Serum or Plasma 27 meq/L 21 -32 [facility] ([facility]) Calcium [Mass/volume] in Serum or Plasma 9.5 mg/dL 8.5-10.1 [facility] ([facility]) Alkaline phosphatase isoenzyme [Units/volume] in Serum or Pl asma 104 mg/dL 46-116 [facility] ([facility]) Aspartate aminotransferase [Enzymatic activity/volume] in Serum or Plasma 37 U/L 15-37 [facility] ([facility] ) Total Bilirubin 1.0 mg/dL 0.2-1.0 [facility] ([facility]) Alanine aminotransferase [Enzymatic activity/volume] in Seru m or Plasma 52 U/L 12-78 [facility] ([facility]) A/G Ratio 1.21 CALC 1.00-1.90 [facility]) Proteinase 3 Ab [Units/volume] in Serum 7.3 g/dL 6.4-8.2 [facility] ([facility]) Albumin [Mass/volume] in Serum or Plasma 4.0 g/dL 3.4-5.0 [facility] Glomerular filtration rate/1.73 sq M pre dicted among blacks [Volume Rate/Area] in Serum or Plasma by Creatinine-based formula (MDRD) 48 mL/min [facility] ([facility]) <content>CHRONIC KIDNEY DISEASE STAGING PER NKF</content>
<content></content>
<content>STAGE I & II GFR >= 60 NORMAL TO MILDLY DECREASED</content>
<content>STAGE III GFR 30-59 MODERATELY DECREASED</content>
<content>STAGE IV GFR 15-29 SEVERELY DECREASED</content>
<content>STAGE V GFR <15 VERY LITTLE GFR LEFT</content>
<content>ESRD GFR <15 ON HEAD WELL PULLER</content>
<content></content> Glomerular filtration rate/1.73 sq M pre dicted among non-blacks [Volume Rate/Area] in Serum or Plasma by Creatinine-based formula (MDRD) 40 mL/min [facility] ([facility]) ID Date Data Source [id number] 04/07/2020 11:59:00 AM EDT [facility]) Name Value Range Interpretation Code Description Data Elizabeth rce(s) Supporting Document(s) Magnesium 2.0 mg/dL 1.8-2.4 [facility] ID Date Data Source [id number] 04/07/2020 11:59:00 AM EDT [facility] ([facility]) Name Value Range Interpretation Code Description Data Elizabeth rce(s) Supporting Document(s) Leukocytes [#/volume] in Blood by Automated count 8.5 x10*3/UL 4.1-10 .9 [facility] ([facility]) Erythrocytes [#/volume] in Blood by Automated count 5.00 x10*6/UL 4.2 0-6.30 [facility]) Hemoglobin [Mass/volume] in Blood 14.4 g/dL 12.0-18.[address] [facility] ([facility]) Hematocrit [Volume Fraction] of Blood by Automated count 42.8 % 3 7.0-51.0 [facility] ([facility]) MCHC 33.8 g/dL 31.0-38.0 [facility]) MCH 28.9 pg 26.0-32.0 [facility] ([facility]) MCV 85.5 fL 80.0-97.0 [facility] ([facility]) Platelets [#/volume] in Blood by Automated count 361 x10*3/UL 140-440 [facility] MPV 8.3 FL 7.8-11.0 [facility] ([facility]) Erythrocyte distribution width [Ratio] by Automated count 13.3 % 11.6-13.7 [facility] ([facility]) Lymph % 19.5 % 10.0-58.5 [facility] ([facility]) Mid % 5.7 % 1.7-9.3 [facility] ([facility]) Neut % 74.8 % 37.0-92.0 [facility] ([facility]) Mid # 0.5 x10*3/UL 0.1-0.6 [facility] ([facility]) Lymph # 1.6 x10*3/UL 0.6-4.1 [facility] ([facility]) Neut # 6.4 x10*3/UL 2.0-7.8 [facility] ([facility]) ID Date Data Source [id number] 03/04/2020 09:56:00 AM EDT [facility] ([facility]) Name Value Range Interpretation Code Description Data Elizabeth rce(s) Supporting Document(s) Glucose [Mass/volume] in Serum or Plasma 99 mg/dL 74-99 [facility] ([facility]) 100-125 mg/dL PRE-DIABETES/FASTING >126 mg/dL DIABETES/FASTING Creatinine 1.4 mg/dL 0.6-1.3 [facility] ([facility]) Urea nitrogen [Mass/volume] in Serum or Plasma 17 mg/dL 7-18 [facility] ([facility]) Chloride [Moles/volume] in Serum or Plasma 103 meq/L 98-107 [facility] ([facility]) Sodium [Moles/volume] in Serum or Plasma 140 meq/L 136-145 [facility] ([facility]) Potassium [Moles/volume] in Serum or Plasma 4.3 meq/L 3.5-5.1 [facility] ([facility]) Carbon dioxide, total [Moles/volume] in Serum or Plasma 26 meq/L 21 -32 [facility] ([facility]) Calcium [Mass/volume] in Serum or Plasma 8.2 mg/dL 8.5-10.1 [facility] ([facility]) NOTE: RESULT VERIFIED. Alkaline phosphatase isoenzyme [Units/volume] in Serum or Pl asma 115 mg/dL 46-116 [facility] ([facility]) Aspartate aminotransferase [Enzymatic activity/volume] in Serum or Plasma 32 U/L 15-37 [facility] ([facility] ) Total Bilirubin 0.8 mg/dL 0.2-1.0 [facility] ([facility]) Alanine aminotransferase [Enzymatic activity/volume] in Seru m or Plasma 47 U/L 12-78 [facility] ([facility]) Proteinase 3 Ab [Units/volume] in Serum 6.5 g/dL 6.4-8.2 [facility] ([facility]) Albumin [Mass/volume] in Serum or Plasma 3.4 g/dL 3.4-5.0 [facility] ([facility]) Glomerular filtration rate/1.73 sq M pre dicted among blacks [Volume Rate/Area] in Serum or Plasma by Creatinine-based formula (MDRD) 44 mL/min [facility] <content>CHRONIC KIDNEY DISEASE STAGING PER NKF</content>
<content></content>
<content>STAGE I & II GFR >= 60 NORMAL TO MILDLY DECREASED</content>
<content>STAGE III GFR 30-59 MODERATELY DECREASED</content>
<content>STAGE IV GFR 15-29 SEVERELY DECREASED</content>
<content>STAGE V GFR <15 VERY LITTLE GFR LEFT</content>
<content>ESRD GFR <15 ON HEAD WELL PULLER</content>
<content></content> A/G Ratio 1.10 CALC 1.00-1.90 [facility] ([facility]) Glomerular filtration rate/1.73 sq M pre dicted among non-blacks [Volume Rate/Area] in Serum or Plasma by Creatinine-based formula (MDRD) 37 mL/min [facility] ([facility]) ID Date Data Source [id number] 03/04/2020 09:56:00 AM EDT [facility] ([facility] Name Value Range Interpretation Code Description Data Elizabeth rce(s) Supporting Document(s) Leukocytes [#/volume] in Blood by Automated count 12.6 x10*3/UL 4.1-1 0.9 [facility] ([facility] NOTE: CBC VERIFIED Erythrocytes [#/volume] in Blood by Automated count 4.45 x10*6/UL 4.2 0-6.30 [facility] ([facility] Hemoglobin [Mass/volume] in Blood 12.8 g/dL 12.0-18.0 [facility] ([facility]) MCV 84.7 fL 80.0-97.0 [facility] ([facility]) Hematocrit [Volume Fraction] of Blood by Automated count 37.7 % 3 7.0-51.0 [facility] ([facility]) MCHC 33.9 g/dL 31.0-38.0 [facility] ([facility]) Erythrocyte distribution width [Ratio] by Automated count 13.4 % 11.6-13.7 [facility] ([facility]) MCH 28.7 pg 26.0-32.0 [facility] ([facility]) Lymph % 10.9 % 10.0-58.5 [facility] ([facility]) Platelets [#/volume] in Blood by Automated count 411 x10*3/UL 140-440 [facility] ([facility]) MPV 8.0 FL 7.8-11.0 [facility] ([facility]) Mid % 3.3 % 1.7-9.3 [facility] ([facility]) Lymph # 1.3 x10*3/UL 0.6-4.1 [facility] ([facility]) Neut % 85.8 % 37.0-92.0 [facility] ([facility]) Neut # 10.8 x10*3/UL 2.0-7.8 [facility] ([facility]) Mid # 0.5 x10*3/UL 0.1-0.6 [facility] ([facility]) ID Date Data Source [id number] 02/25/2020 07:34:00 AM EDT [facility] ([facility]) Name Value Range Interpretation Code Description Data Elizabeth rce(s) Supporting Document(s) Alkaline phosphatase isoenzyme [Units/volume] in Serum or Pl asma 132 mg/dL 46-116 [facility] ([facility] Total Bilirubin 0.8 mg/dL 0.2-1.0 [facility] ([facility]) Alanine aminotransferase [Enzymatic activity/volume] in Seru m or Plasma 107 U/L 12-78 [facility] ([facility]) NOTE: RESULT VERIFIED. Aspartate aminotransferase [Enzymatic activity/volume] in Serum or Plasma 63 U/L 15-37 [facility] ([facility] ) Albumin [Mass/volume] in Serum or Plasma 3.9 g/dL 3.4-5.0 [facility] ([facility]) A/G Ratio 1.26 CALC 1.00-1.90 [facility] ([facility]) Direct Bilirubin 0.2 mg/dL 0.0-0.2 [facility] ([facility]) Proteinase 3 Ab [Units/volume] in Serum 7.0 g/dL 6.4-8.2 [facility] ([facility]) ID Date Data Source [id number] 02/25/2020 07:34:00 AM EDT [facility] ([facility]) Name Value Range Interpretation Code Description Data Elizabeth rce(s) Supporting Document(s) Glucose [Mass/volume] in Serum or Plasma 128 mg/dL 74-99 [facility] ([facility]) 100-125 mg/dL PRE-DIABETES/FASTING >126 mg/dL DIABETES/FASTING Urea nitrogen [Mass/volume] in Serum or Plasma 17 mg/dL 7-18 [facility] ([facility]) Creatinine 1.4 mg/dL 0.6-1.3 [facility] ([facility]) Sodium [Moles/volume] in Serum or Plasma 143 meq/L 136-145 [facility] ([facility]) Potassium [Moles/volume] in Serum or Plasma 4.1 meq/L 3.5-5.1 [facility] ([facility]) Carbon dioxide, total [Moles/volume] in Serum or Plasma 27 meq/L 21 -32 [facility] ([facility]) Chloride [Moles/volume] in Serum or Plasma 105 meq/L 98-107 [facility] ([facility]) Calcium [Mass/volume] in Serum or Plasma 9.2 mg/dL 8.5-10.1 [facility] ([facility]) Glomerular filtration rate/1.73 sq M pre dicted among non-blacks [Volume Rate/Area] in Serum or Plasma by Creatinine-based formula (MDRD) 37 mL/min [facility] ([facility]) Glomerular filtration rate/1.73 sq M pre dicted among blacks [Volume Rate/Area] in Serum or Plasma by Creatinine-based formula (MDRD) 44 mL/min [facility] ([facility]) <content>CHRONIC KIDNEY DISEASE STAGING PER NKF</content>
<content></content>
<content>STAGE I & II GFR >= 60 NORMAL TO MILDLY DECREASED</content>
<content>STAGE III GFR 30-59 MODERATELY DECREASED</content>
<content>STAGE IV GFR 15-29 SEVERELY DECREASED</content>
<content>STAGE V GFR <15 VERY LITTLE GFR LEFT</content>
<content>ESRD GFR <15 ON HEAD WELL PULLER</content>
<content></content> ID Date Data Source [id number] 02/25/2020 07:34:00 AM EDT [facility] ([facility] Name Value Range Interpretation Code Description Data Elizabeth rce(s) Supporting Document(s) Alkaline phosphatase isoenzyme [Units/volume] in Serum or Pl asma 132 mg/dL 46-116 [facility] ([facility]) Aspartate aminotransferase [Enzymatic activity/volume] in Serum or Plasma 63 U/L 15-37 [facility] ([facility]) Total Bilirubin 0.8 mg/dL 0.2-1.0 [facility] ([facility]) Albumin [Mass/volume] in Serum or Plasma 3.9 g/dL 3.4-5.0 [facility] ([facility]) Alanine aminotransferase [Enzymatic activity/volume] in Seru m or Plasma 107 U/L 12-78 [facility] ([facility]) NOTE: RESULT VERIFIED. Proteinase 3 Ab [Units/volume] in Serum 7.0 g/dL 6.4-8.2 [facility] ([facility] ) Laboratory test finding (navigational concept) 0.2 mg/dL 0.0-0.2 [facility] ([facility]) Albumin/Globulin [Mass Ratio] in Serum or Plasma 1.26 CALC 1.00-1.90 [facility] ([facility]) ID Date Data Source [id number] 02/25/2020 07:34:00 AM EDT [facility] ([facility]) Name Value Range Interpretation Code Description Data Elizabeth rce(s) Supporting Document(s) Glucose [Mass/volume] in Serum or Plasma 128 mg/dL 74-99 [facility] ([facility]) 100-125 mg/dL PRE-DIABETES/FASTING >126 mg/dL DIABETES/FASTING Urea nitrogen [Mass/volume] in Serum or Plasma 17 mg/dL 7-18 [facility] ([facility]) Creatinine [Mass/volume] in Serum or Plasma 1.4 mg/dL 0.6-1.3 [facility] ([facility]) Sodium [Moles/volume] in Serum or Plasma 143 meq/L 136-145 [facility] ([facility]) Chloride [Moles/volume] in Serum or Plasma 105 meq/L 98-107 [facility] ([facility] ) Carbon dioxide, total [Moles/volume] in Serum or Plasma 27 meq/L 21 -32 [facility] ([facility] ) Potassium [Moles/volume] in Serum or Plasma 4.1 meq/L 3.5-5.1 [facility] ([facility] ) Calcium [Mass/volume] in Serum or Plasma 9.2 mg/dL 8.5-10.1 [facility] ([facility]) Glomerular filtration rate/1.73 sq M pre dicted among blacks [Volume Rate/Area] in Serum or Plasma by Creatinine-based formula (MDRD) 44 mL/min [facility]) <content>CHRONIC KIDNEY DISEASE STAGING PER NKF</content>
<content></content>
<content>STAGE I & II GFR >= 60 NORMAL TO MILDLY DECREASED</content>
<content>STAGE III GFR 30-59 MODERATELY DECREASED</content>
<content>STAGE IV GFR 15-29 SEVERELY DECREASED</content>
<content>STAGE V GFR <15 VERY LITTLE GFR LEFT</content>
<content>ESRD GFR <15 ON HEAD WELL PULLER</content>
<content></content>
<content></content> Glomerular filtration rate/1.73 sq M pre dicted among non-blacks [Volume Rate/Area] in Serum or Plasma by Creatinine-based formula (MDRD) 37 mL/min [facility]) ID Date Data Source [id number] 02/23/2020 08:15:00 AM EDT [facility] Name Value Range Interpretation Code Description Data Elizabeth rce(s) Supporting Document(s) SARS coronavirus 2 RNA [facility] This lab was ordered by [facility] and reported by [facility]. ID Date Data Source [id number] 02/20/2020 08:55:00 AM EDT [facility] Name Value Range Interpretation Code Description Data Elizabeth rce(s) Supporting Document(s) Hepatitis C Virus Rosi Index 0.1 INDEX [facility]) Negative Not infected with HCV, unless recent infection is suspected or other evidence exists to indicate HCV infection. Hepatitis B Surface Antigen Laboratory test result [facility] ([facility]) Hepatitis B Core Antibody Igm Laboratory test result [facility]) Hepatitis A Antibody Igm Laboratory test result [facility]) ID Date Data Source [id number] 02/20/2020 08:55:00 AM EDT [facility]) Name Value Range Interpretation Code Description Data Elizabeth rce(s) Supporting Document(s) Erythrocyte sedimentation rate by Westergren method 18 mm/hr 0-30 [facility] ([facility]) ID Date Data Source [id number] 02/20/2020 08:55:00 AM EDT [facility] ([facility]) Name Value Range Interpretation Code Description Data Elizabeth rce(s) Supporting Document(s) White Blood Count 8.7 10 4.0-10.0 [facility] ([facility]) Red Blood Count 5.04 10 4.00-5.40 [facility] ([facility]) Hematocrit 44.4 % 36.0-47.0 [facility] ([facility]) Hemoglobin 14.4 g/dL 12.0-15.5 [facility] ([facility]) Mean Corpuscular Volume 88.1 fl 80.0-96.0 [facility] ([facility]) Mean Corpuscular Hemoglobin 28.6 pg 27.0-33.0 SC [facility] ([facility]) Mean Corpuscular HGB Conc 32.4 g/dL 32.0-36.5 MEDE NT ([facility]) Nucleated Red Blood Cell % 0.0 % 0-0 MED [facility] ([facility]) Platelet Count, Automated 304 10 150-450 [facility] NT ([facility]) Red Cell Distribution Width 14.0 % 11.5-14.5 SC [facility] ([facility]) ID Date Data Source [id number] 02/20/2020 08:55:00 AM EDT [facility] ([facility]) Name Value Range Interpretation Code Description Data Elizabeth rce(s) Supporting Document(s) Blood Urea Nitrogen 15 mg/dL 7-18 [facility] ([facility]) Glucose, Fasting 108 mg/dL 70-100 [facility] ([facility]) Glomerular Filtration Rate 37.2 MED E[facility] ([facility]) <content>Units are mL/min/1.73 m2</content>
<content></content>
<content>Chronic Kidney Disease Staging per NKF:</content>
<content></content>
<content>Stage I & II GFR >=60 Normal to Mildly Decreased</content>
<content>Stage III GFR 30-59 Moderately Decreased</content>
<content>Stage IV GFR 15-29 Severely Decreased</content>
<content>Stage V GFR <15 Very Little GFR Left</content>
<content>ESRD GFR <15 on HEAD WELL PULLER</content>
<content></content> Creatinine For GFR 1.46 mg/dL 0.55-1.30 [facility] ([facility]) Potassium Serum 3.8 meq/L 3.5-5.1 [facility] ([facility]) Chloride Level 108 meq/L 98-107 [facility] Sodium Level 141 meq/L 136-145 [facility] ([facility]) Anion Gap 9 meq/L 8-16 [facility] ([facility]) Carbon Dioxide Level 24 meq/L 21-32 [facility] ([facility] Calcium Level 9.7 mg/dL 8.8-10.2 [facility] ([facility]) Ast/Sgot 66 U/L 7-37 [facility] ([facility]) Alt/SGPT 100 U/L 12-78 [facility] ([facility]) Alkaline Phosphatase 132 U/L 45-117 [facility] ([facility] Bilirubin,Total 0.6 mg/dL 0.2-1.0 [facility] ([facility]) Total Protein 7.0 GM/DL 6.4-8.2 [facility] ([facility] Albumin 3.8 GM/DL 3.2-5.2 [facility] ([facility]) Albumin/Globulin Ratio 1.2 1.2-2.2 [facility] ([facility]) ID Date Data Source [id number] 02/20/2020 08:55:00 AM EDT [facility] ([facility]) Name Value Range Interpretation Code Description Data Elizabeth rce(s) Supporting Document(s) Prothrombin Time 18.9 s 11.8-14.0 [facility] ([facility]) Inr 1.61 [facility] ([facility]) THERAPUTIC HUMAN INR VALUES INDICATIONS NORMAL RANGES PROPHYLAXIS/TREATMENT OF: VENOUS THROMBOSIS 2.0-3.0 PULMONARY EMBOLISM 2.0-3.0 PREVENTION OF SYSTEMIC EMBOLISM FROM: TISSUE HEART VALVES 2.0-3.0 ACUTE MYOCARDIAL INFARCTION 2.0-3.0 VALVULAR HEART DISEASE 2.0-3.0 ATRIAL FIBRILLATION 2.0-3.0 MECHANICAL VALVES(HIGH RISK) 2.5-3.5 RECURRENT MYOCARDIAL INFARCTION 2.5-3.5 ID Date Data Source [id number] 02/20/2020 08:55:00 AM EDT [facility] ([facility]) Name Value Range Interpretation Code Description Data Elizabeth rce(s) Supporting Document(s) Erythrocyte sedimentation rate by Westergren method 18 mm/hr 0-30 [facility] ([facility]) ID Date Data Source [id number] 02/20/2020 08:55:00 AM EDT [facility] ([facility]) Name Value Range Interpretation Code Description Data Elizabeth rce(s) Supporting Document(s) Red Blood Count 5.04 10 4.00-5.40 [facility] ([facility]) White Blood Count 8.7 10 4.0-10.0 [facility] ([facility] ) Mean Corpuscular Volume 88.1 fl 80.0-96.0 M EDENT ([facility]) Hemoglobin 14.4 g/dL 12.0-15.5 [facility] ([facility] ) Hematocrit 44.4 % 36.0-47.0 [facility] ([facility] ) Red Cell Distribution Width 14.0 % 11.5-14.5 [facility] ([facility]) Mean Corpuscular Hemoglobin 28.6 pg 27.0-33.0 [facility] Mean Corpuscular HGB Conc 32.4 g/dL 32.0-36.5 [facility] Platelet Count, Automated 304 10 150-450 [facility] ([facility]) Nucleated Red Blood Cell % 0.0 % 0-0 MED [facility] ([facility] ) ID Date Data Source [id number] 02/20/2020 08:55:00 AM EDT [facility] ([facility]) Name Value Range Interpretation Code Description Data Elizabeth rce(s) Supporting Document(s) Glucose, Fasting 108 mg/dL 70-100 [facility] ([facility]) Blood Urea Nitrogen 15 mg/dL 7-18 [facility]) Sodium Level 141 meq/L 136-145 [facility] ([facility]) Creatinine For GFR 1.46 mg/dL 0.55-1.30 [facility] ([facility]) Glomerular Filtration Rate 37.2 MED [facility] ([facility]) <content>Units are mL/min/1.73 m2</content>
<content></content>
<content>Chronic Kidney Disease Staging per NKF:</content>
<content></content>
<content>Stage I & II GFR >=60 Normal to Mildly Decreased</content>
<content>Stage III GFR 30-59 Moderately Decreased</content>
<content>Stage IV GFR 15-29 Severely Decreased</content>
<content>Stage V GFR <15 Very Little GFR Left</content>
<content>ESRD GFR <15 on HEAD WELL PULLER</content>
<content></content> Chloride Level 108 meq/L 98-107 [facility] ([facility]) Carbon Dioxide Level 24 meq/L 21-32 [facility] ([facility]) Potassium Serum 3.8 meq/L 3.5-5.1 [facility] ([facility]) Anion Gap 9 meq/L 8-16 [facility] ([facility]) Ast/Sgot 66 U/L 7-37 [facility] ([facility]) Calcium Level 9.7 mg/dL 8.8-10.2 [facility] ([facility]) Bilirubin,Total 0.6 mg/dL 0.2-1.0 [facility] ([facility]) Alt/SGPT 100 U/L 12-78 [facility] ([facility]) Alkaline Phosphatase 132 U/L 45-117 [facility]) Albumin/Globulin Ratio 1.2 1.2-2.2 [facility] ([facility]) Albumin 3.8 GM/DL 3.2-5.2 [facility] ([facility]) Total Protein 7.0 GM/DL 6.4-8.2 [facility] ([facility]) ID Date Data Source [id number] 02/20/2020 08:55:00 AM EDT [facility] ([facility]) Name Value Range Interpretation Code Description Data Elizabeth rce(s) Supporting Document(s) Prothrombin Time 18.9 s 11.8-14.0 [facility] ([facility]) Inr 1.61 [facility] ([facility] THERAPUTIC HUMAN INR VALUES INDICATIONS NORMAL RANGES PROPHYLAXIS/TREATMENT OF: VENOUS THROMBOSIS 2.0-3.0 PULMONARY EMBOLISM 2.0-3.0 PREVENTION OF SYSTEMIC EMBOLISM FROM: TISSUE HEART VALVES 2.0-3.0 ACUTE MYOCARDIAL INFARCTION 2.0-3.0 VALVULAR HEART DISEASE 2.0-3.0 ATRIAL FIBRILLATION 2.0-3.0 MECHANICAL VALVES(HIGH RISK) 2.5-3.5 RECURRENT MYOCARDIAL INFARCTION 2.5-3.5 ID Date Data Source [id number] 02/20/2020 08:13:00 AM EDT [facility] ([facility]) Name Value Range Interpretation Code Description Data Elizabeth rce(s) Supporting Document(s) Glucose [Mass/volume] in Serum or Plasma 106 mg/dL 74-99 [facility] ([facility]) 100-125 mg/dL PRE-DIABETES/FASTING >126 mg/dL DIABETES/FASTING Urea nitrogen [Mass/volume] in Serum or Plasma 14 mg/dL 7-18 [facility] ([facility]) Sodium [Moles/volume] in Serum or Plasma 144 meq/L 136-145 [facility] ([facility]) Creatinine 1.5 mg/dL 0.6-1.3 [facility] Potassium [Moles/volume] in Serum or Plasma 4.2 meq/L 3.5-5.1 [facility] ([facility]) Carbon dioxide, total [Moles/volume] in Serum or Plasma 24 meq/L 21 -32 [facility] ([facility]) Chloride [Moles/volume] in Serum or Plasma 106 meq/L 98-107 [facility] ([facility]) Calcium [Mass/volume] in Serum or Plasma 10.0 mg/dL 8.5-10.1 [facility] ([facility]) Glomerular filtration rate/1.73 sq M pre dicted among non-blacks [Volume Rate/Area] in Serum or Plasma by Creatinine-based formula (MDRD) 34 mL/min [facility] Glomerular filtration rate/1.73 sq M pre dicted among blacks [Volume Rate/Area] in Serum or Plasma by Creatinine-based formula (MDRD) 41 mL/min [facility] <content>CHRONIC KIDNEY DISEASE STAGING PER NKF</content>
<content></content>
<content>STAGE I & II GFR >= 60 NORMAL TO MILDLY DECREASED</content>
<content>STAGE III GFR 30-59 MODERATELY DECREASED</content>
<content>STAGE IV GFR 15-29 SEVERELY DECREASED</content>
<content>STAGE V GFR <15 VERY LITTLE GFR LEFT</content>
<content>ESRD GFR <15 ON HEAD WELL PULLER</content>
<content></content> ID Date Data Source [id number] 02/11/2020 11:08:00 AM EDT [facility] ([facility]) Name Value Range Interpretation Code Description Data Elizabeth rce(s) Supporting Document(s) Hemoglobin A1c/Hemoglobin.total in Blood 5.9 g/dL 4.8-5.[address] [facility] ([facility]) Lab Result Notes: Pre-Diabetes 5.7 - 6.4 % Diabetes = or > 6.5% Glucose mean value [Mass/volume] in Blood Estimated fr om glycated hemoglobin 123 mg/dL 60-[address] [facility] ([facility] ID Date Data Source [id number] 02/11/2020 11:08:00 AM EDT [facility] ([facility]) Name Value Range Interpretation Code Description Data Elizabeth rce(s) Supporting Document(s) Glucose [Mass/volume] in Serum or Plasma 96 mg/dL 74-99 [facility] ([facility]) 100-125 mg/dL PRE-DIABETES/FASTING >126 mg/dL DIABETES/FASTING Sodium [Moles/volume] in Serum or Plasma 142 meq/L 136-145 [facility] Urea nitrogen [Mass/volume] in Serum or Plasma 17 mg/dL 7-18 [facility] ([facility]) Creatinine 1.6 mg/dL 0.6-1.3 [facility] Potassium [Moles/volume] in Serum or Plasma 3.9 meq/L 3.5-5.1 [facility] ([facility]) Chloride [Moles/volume] in Serum or Plasma 103 meq/L 98-107 [facility] ([facility]) Carbon dioxide, total [Moles/volume] in Serum or Plasma 24 meq/L 21 -32 [facility] ([facility]) Glomerular filtration rate/1.73 sq M pre dicted among non-blacks [Volume Rate/Area] in Serum or Plasma by Creatinine-based formula (MDRD) 31 mL/min [facility] ([facility] Glomerular filtration rate/1.73 sq M pre dicted among blacks [Volume Rate/Area] in Serum or Plasma by Creatinine-based formula (MDRD) 38 mL/min [facility] ([facility]) <content>CHRONIC KIDNEY DISEASE STAGING PER NKF</content>
<content></content>
<content>STAGE I & II GFR >= 60 NORMAL TO MILDLY DECREASED</content>
<content>STAGE III GFR 30-59 MODERATELY DECREASED</content>
<content>STAGE IV GFR 15-29 SEVERELY DECREASED</content>
<content>STAGE V GFR <15 VERY LITTLE GFR LEFT</content>
<content>ESRD GFR <15 ON HEAD WELL PULLER</content>
<content></content> Calcium [Mass/volume] in Serum or Plasma 7.8 mg/dL 8.5-10.1 [facility] ([facility]) NOTE: RESULT VERIFIED. ID Date Data Source [id number] 02/11/2020 11:08:00 AM EDT [facility] ([facility]) Name Value Range Interpretation Code Description Data Elizabeth rce(s) Supporting Document(s) Erythrocytes [#/volume] in Blood by Automated count 4.89 x10*6/UL 4.2 0-6.30 [facility] ([facility]) Leukocytes [#/volume] in Blood by Automated count 8.7 x10*3/UL 4.1-10 .9 [facility] ([facility]) Hematocrit [Volume Fraction] of Blood by Automated count 41.6 % 3 7.0-51.0 [facility] ([facility]) MCV 85.0 fL 80.0-97.0 [facility] [facility]) Hemoglobin [Mass/volume] in Blood 13.9 g/dL 12.0-18.0 [facility] ([facility]) Erythrocyte distribution width [Ratio] by Automated count 13.3 % 11.6-13.7 [facility] ([facility]) MCH 28.5 pg 26.0-32.0 [facility] ([facility]) MCHC 33.5 g/dL 31.0-38.0 [facility] ([facility]) MPV 8.1 FL 7.8-11.0 [facility] ([facility]) Lymph % 17.7 % 10.0-58.5 [facility] ([facility]) Platelets [#/volume] in Blood by Automated count 339 x10*3/UL 140-440 [facility] ([facility]) Mid % 5.6 % 1.7-9.3 [facility] ([facility]) Neut % 76.7 % 37.0-92.0 [facility] ([facility]) Lymph # 1.5 x10*3/UL 0.6-4.1 [facility] ([facility]) Mid # 0.5 x10*3/UL 0.1-0.6 [facility] ([facility]) Neut # 6.7 x10*3/UL 2.0-7.8 [facility] ([facility]) ID Date Data Source [id number] 01/16/2020 10:39:00 AM EDT [facility] ([facility]) Name Value Range Interpretation Code Description Data Elizabeth rce(s) Supporting Document(s) Laboratory test finding (navigational concept) Laboratory test result [facility]) ID Date Data Source [id number] 01/08/2020 10:52:00 AM EDT [facility] ([facility]) Name Value Range Interpretation Code Description Data Elizabeth rce(s) Supporting Document(s) Glucose [Mass/volume] in Serum or Plasma 130 mg/dL 74-99 [facility] ([facility]) 100-125 mg/dL PRE-DIABETES/FASTING >126 mg/dL DIABETES/FASTING Creatinine 1.1 mg/dL 0.6-1.3 [facility] ([facility]) Sodium [Moles/volume] in Serum or Plasma 144 meq/L 136-145 [facility] ([facility]) Urea nitrogen [Mass/volume] in Serum or Plasma 15 mg/dL 7-18 [facility] ([facility]) Carbon dioxide, total [Moles/volume] in Serum or Plasma 27 meq/L 21 -32 [facility] ([facility]) Potassium [Moles/volume] in Serum or Plasma 5.2 meq/L 3.5-5.1 [facility] ([facility]) NOTE: RESULT VERIFIED. NO VISIBLE HEMOLYSIS. Chloride [Moles/volume] in Serum or Plasma 106 meq/L 98-107 [facility] ([facility]) Glomerular filtration rate/1.73 sq M pre dicted among blacks [Volume Rate/Area] in Serum or Plasma by Creatinine-based formula (MDRD) 59 mL/min [facility] ([facility]) <content>CHRONIC KIDNEY DISEASE STAGING PER NKF</content>
<content></content>
<content>STAGE I & II GFR >= 60 NORMAL TO MILDLY DECREASED</content>
<content>STAGE III GFR 30-59 MODERATELY DECREASED</content>
<content>STAGE IV GFR 15-29 SEVERELY DECREASED</content>
<content>STAGE V GFR <15 VERY LITTLE GFR LEFT</content>
<content>ESRD GFR <15 ON HEAD WELL PULLER</content>
<content></content> Glomerular filtration rate/1.73 sq M pre dicted among non-blacks [Volume Rate/Area] in Serum or Plasma by Creatinine-based formula (MDRD) 48 mL/min [facility] ([facility]) Calcium [Mass/volume] in Serum or Plasma 9.4 mg/dL 8.5-10.1 [facility] ([facility]) ID Date Data Source [id number] 01/01/2020 07:43:00 AM EDT [facility] ([facility]) Name Value Range Interpretation Code Description Data Elizabeth rce(s) Supporting Document(s) Calcidiol [Mass/volume] in Serum or Plasma 44.6 24.0-80.0 [facility] ([facility]) This test was performed using FastPack I P Vitamin D immunoassay kit. Values obtained with different assay methods should not be used interchangeably. ID Date Data Source [id number] 01/01/2020 07:42:00 AM EDT [facility] ([facility] Name Value Range Interpretation Code Description Data Elizabeth rce(s) Supporting Document(s) Glucose [Mass/volume] in Serum or Plasma 153 mg/dL 74-99 [facility] ([facility]) 100-125 mg/dL PRE-DIABETES/FASTING >126 mg/dL DIABETES/FASTING Urea nitrogen [Mass/volume] in Serum or Plasma 17 mg/dL 7-18 [facility] ([facility]) Sodium [Moles/volume] in Serum or Plasma 144 meq/L 136-145 [facility] ([facility]) Creatinine 1.2 mg/dL 0.6-1.3 [facility] ([facility]) Chloride [Moles/volume] in Serum or Plasma 105 meq/L 98-107 [facility] ([facility]) Carbon dioxide, total [Moles/volume] in Serum or Plasma 28 meq/L 21 -32 [facility] ([facility]) Potassium [Moles/volume] in Serum or Plasma 4.2 meq/L 3.5-5.1 [facility] ([facility]) Glomerular filtration rate/1.73 sq M pre dicted among blacks [Volume Rate/Area] in Serum or Plasma by Creatinine-based formula (MDRD) 53 mL/min [facility] ([facility]) <content>CHRONIC KIDNEY DISEASE STAGING PER NKF</content>
<content></content>
<content>STAGE I & II GFR >= 60 NORMAL TO MILDLY DECREASED</content>
<content>STAGE III GFR 30-59 MODERATELY DECREASED</content>
<content>STAGE IV GFR 15-29 SEVERELY DECREASED</content>
<content>STAGE V GFR <15 VERY LITTLE GFR LEFT</content>
<content>ESRD GFR <15 ON HEAD WELL PULLER</content>
<content></content> Calcium [Mass/volume] in Serum or Plasma 9.5 mg/dL 8.5-10.[address] [facility] ([facility]) Glomerular filtration rate/1.73 sq M pre dicted among non-blacks [Volume Rate/Area] in Serum or Plasma by Creatinine-based formula (MDRD) 44 mL/min [facility]) ID Date Data Source [id number] 01/01/2020 07:42:00 AM EDT [facility] ([facility]) Name Value Range Interpretation Code Description Data Elizabeth rce(s) Supporting Document(s) Leukocytes [#/volume] in Blood by Automated count 7.3 x10*3/UL 4.1-10 .9 [facility] ([facility]) MCV 83.8 fL 80.0-97.0 [facility] ([facility]) Hematocrit [Volume Fraction] of Blood by Automated count 44.4 % 3 7.0-51.0 [facility] ([facility]) Hemoglobin [Mass/volume] in Blood 14.9 g/dL 12.0-18.[address] [facility] ([facility]) Erythrocytes [#/volume] in Blood by Automated count 5.29 x10*6/UL 4.2 0-6.30 [facility]) MCHC 33.6 g/dL 31.0-38.0 [facility] ([facility]) MCH 28.1 pg 26.0-32.0 [facility] ([facility]) Erythrocyte distribution width [Ratio] by Automated count 13.3 % 11.6-13.7 [facility] ([facility]) MPV 8.0 FL 7.8-11.0 [facility] Platelets [#/volume] in Blood by Automated count 350 x10*3/UL 140-440 [facility] ([facility]) Lymph % 18.6 % 10.0-58.5 [facility] [facility] Lymph # 1.3 x10*3/UL 0.6-4.1 [facility] ([facility]) Mid % 4.6 % 1.7-9.3 [facility] [facility] Neut % 76.8 % 37.0-92.0 [facility] [facility] Mid # 0.4 x10*3/UL 0.1-0.6 [facility] ([facility]) Neut # 5.6 x10*3/UL 2.0-7.8 [facility] ([facility]) ID Date Data Source [id number] 12/28/2019 08:55:00 AM EDT [facility] ([facility]) Name Value Range Interpretation Code Description Data Elizabeth rce(s) Supporting Document(s) Laboratory test finding (navigational concept) Laboratory test result [facility] ([facility]) ID Date Data Source [id number] 11/27/2019 12:00:[address] [facility] Tonja Cardenas MD Patient Name: SANTOSH [id number] [facility] Date of : Floor Date of Exam: 11/27/2019[place] Resendez [id number]#: Fax: [phone] EXAM: THORACIC SPINE (3 VIEW) [...] rce(s) Supporting Document(s) ID Date Data Source [id number] 11/19/2019 10:04:00 AM EDT [facility] ([facility]) Name Value Range Interpretation Code Description Data Elizabeth rce(s) Supporting Document(s) Glucose, Fasting 144 mg/dL 70-100 [facility] ([facility]) Glomerular Filtration Rate 47.5 [facility] ([facility]) <content>Units are mL/min/1.73 m2</content>
<content></content>
<content>Chronic Kidney Disease Staging per NKF:</content>
<content></content>
<content>Stage I & II GFR >=60 Normal to Mildly Decreased</content>
<content>Stage III GFR 30- 59 Moderately Decreased</content>
<content>Stage IV GFR 15-29 Severely Decreased</content>
<content>Stage V GFR <15 Very Little GFR Left</content>
<content>ESRD GFR <15 on HEAD WELL PULLER</content>
<content></content> Creatinine For GFR 1.18 mg/dL 0.55-1.30 [facility] ([facility]) Blood Urea Nitrogen 21 mg/dL 7-18 [facility] ([facility]) Sodium Level 141 meq/L 136-145 [facility] ([facility]) Potassium Serum 3.6 meq/L 3.5-5.1 [facility] ([facility]) Chloride Level 108 meq/L 98-107 [facility] ([facility]) Carbon Dioxide Level 27 meq/L 21-32 [facility] ([facility]) Anion Gap 6 meq/L 8-16 [facility] [facility] Calcium Level 9.0 mg/dL 8.8-10.2 [facility]) ID Date Data Source [id number] 11/19/2019 10:04:00 AM EDT [facility] ([facility]) Name Value Range Interpretation Code Description Data Elizabeth rce(s) Supporting Document(s) CPK Creatine Phosphokinase 33 U/L 26-192 [facility] ([facility]) CK-MB Value Mass Laboratory test result [facility] ([facility]) MB/CK Relative Index 3.03 [facility]) <content>DIAGNOSIS CRITERIA</content>
<content>MMB ng/ml Relative Index (RI)</content>
<content>NON-AMI < or = 5 N/A</content>
<content>HUIZAR ZONE > 5 < or = 4</content>
<content>AMI > 5 > 4</content>
<content></content> Troponin I Laboratory test result [facility] ([facility]) <content>Troponin I Reference Interval f or [facility] LOCI:</content>
<content></content>
<content>99th Percentile= 0.00-0.045 ng/ml</content>
<content></content>
<content>Risk Stratification:</content>
<content><= 0.10 ng/ml Decreased Risk for Adverse Clinical</content>
<content>Events.</content>
<content>0.10-1.50 ng/ml Increased Risk for Adverse Clinical</content>
<content>Events. Evaluation of additional</content>
<content>criterion and/or repeat testing in 2-6</content>
<content>hours is suggested to rule out myocardial</content>
<content>damage.</content>
<content>>= 1.50 ng/ml Indicative of Myocardial Injury.</content>
<content></content> ID Date Data Source [id number] 11/19/2019 10:04:00 AM EDT [facility] ([facility]) Name Value Range Interpretation Code Description Data Elizabeth rce(s) Supporting Document(s) White Blood Count 8.4 10 4.0-10.0 [facility] ([facility]) Hemoglobin 14.3 g/dL 12.0-15.5 [facility] [facility] Red Blood Count 5.08 10 4.00-5.40 [facility] ([facility]) Hematocrit 44.8 % 36.0-47.0 [facility] ([facility]) Mean Corpuscular Hemoglobin 28.1 pg 27.0-33.0 SC [facility] ([facility]) Mean Corpuscular HGB Conc 31.9 g/dL 32.0-36.5 [facility] NT ([facility]) Mean Corpuscular Volume 88.2 fl 80.0-96.0 [facility] ([facility]) Platelet Count, Automated 299 10 150-450 [facility] ([facility]) Red Cell Distribution Width 13.7 % 11.5-14.5 ME [facility] ([facility]) Neutrophils % 69.6 % 36.0-66.0 [facility] ([facility]) Lymph % 13.8 % 24.0-44.0 [facility] [facility]) Coryell % 7.6 % 0.0-5.0 [facility] [facility]) Eos % 7.2 % 0.0-3.0 [facility] [facility]) Baso % 1.4 % 0.0-1.0 [facility] [facility]) Immature Granulocyte % 0.4 % 0-3.0 [facility] ([facility]) Nucleated Red Blood Cell % 0.0 % 0-0 [facility] ([facility]) Coryell # 0.6 10 0.0-0.8 [facility] [facility]) Lymph # 1.2 10 1.5-5.0 [facility] ([place] [facility]) Neutrophils # 5.8 10 1.5-8.5 [facility] ([facility]) Baso # 0.1 10 0.0-0.2 [facility] [facility] Eos # 0.6 10 0.0-0.5 [facility] [facility] ID Date Data Source [id number] 11/07/2019 08:21:00 AM EDT [facility] ([facility]) Name Value Range Interpretation Code Description Data Elizabeth rce(s) Supporting Document(s) Hemoglobin A1c/Hemoglobin.total in Blood 5.7 g/dL 4.8-5.6 [facility] ([facility]) Lab Result Notes: Pre-Diabetes 5.7 - 6.4 % Diabetes = or > 6.5% Glucose mean value [Mass/volume] in Blood Estimated fr om glycated hemoglobin 117 mg/dL 60-110 [facility] ([facility] ) ID Date Data Source [id number] 11/07/2019 08:21:00 AM EDT [facility] ([facility]) Name Value Range Interpretation Code Description Data Elizabeth rce(s) Supporting Document(s) Leukocytes [#/volume] in Blood by Automated count 9.5 x10*3/UL 4.1-10 .9 [facility] ([facility]) Erythrocytes [#/volume] in Blood by Automated count 5.44 x10*6/UL 4.2 0-6.30 [facility] ([facility]) Hemoglobin [Mass/volume] in Blood 15.1 g/dL 12.0-18.0 [facility] ([facility]) Hematocrit [Volume Fraction] of Blood by Automated count 45.1 % 3 7.0-51.0 [facility] ([facility]) MCV 82.9 fL 80.0-97.0 [facility] [facility] MCHC 33.5 g/dL 31.0-38.0 [facility] [facility] MCH 27.8 pg 26.0-32.0 [facility] [facility] Platelets [#/volume] in Blood by Automated count 337 x10*3/UL 140-440 [facility] ([facility]) Erythrocyte distribution width [Ratio] by Automated count 13.2 % 11.6-13.7 [facility] ([facility]) MPV 8.4 FL 7.8-11.0 [facility] ([place] [facility]) Neut % 77.1 % 37.0-92.0 [facility] ([place] [facility]) Mid % 4.6 % 1.7-9.3 [facility] ([place] [facility]) Lymph % 18.3 % 10.0-58.5 [facility] ([facility]) Neut # 7.3 x10*3/UL 2.0-7.8 [facility] ([facility]) Lymph # 1.7 x10*3/UL 0.6-4.1 [facility] ([facility]) Mid # 0.5 x10*3/UL 0.1-0.6 [facility] ([facility]) ID Date Data Source [id number] 11/07/2019 08:21:00 AM EDT [facility] ([facility]) Name Value Range Interpretation Code Description Data Elizabeth rce(s) Supporting Document(s) Hemoglobin A1c/Hemoglobin.total in Blood <pending> [facility]) ID Date Data Source [id number] 10/24/2019 09:34:00 AM EDT [facility] ([facility]) Name Value Range Interpretation Code Description Data Elizabeth rce(s) Supporting Document(s) Leukocytes [#/volume] in Blood by Automated count 8.6 x10*3/UL 4.1-10 .9 [facility] ([facility]) Erythrocytes [#/volume] in Blood by Automated count 4.87 x10*6/UL 4.2 0-6.30 [facility] ([facility]) Hemoglobin [Mass/volume] in Blood 13.6 g/dL 12.0-18.[address] [facility] ([facility]) MCV 83.0 fL 80.0-97.0 [facility] ([place] [facility]) Hematocrit [Volume Fraction] of Blood by Automated count 40.4 % 3 7.0-51.0 [facility] ([facility]) MCH 27.9 pg 26.0-32.0 [facility] ([place] [facility]) MCHC 33.6 g/dL 31.0-38.0 [facility] ([place] [facility]) Erythrocyte distribution width [Ratio] by Automated count 12.7 % 11.6-13.7 [facility] ([facility]) Platelets [#/volume] in Blood by Automated count 362 x10*3/UL 140-440 [facility] ([facility]) MPV 7.9 FL 7.8-11.0 [facility] ([place] [facility]) Mid % 3.8 % 1.7-9.3 [facility] ([place] [facility]) Lymph % 14.9 % 10.0-58.5 [facility] ([facility]) Mid # 0.5 x10*3/UL 0.1-0.6 [facility] ([place] [facility]) Neut % 81.3 % 37.0-92.0 [facility] ([place] [facility] Lymph # 1.2 x10*3/UL 0.6-4.1 [facility] ([place] [facility]) Neut # 6.9 x10*3/UL 2.0-7.8 [facility] ([place] [facility]) ID Date Data Source [id number] 10/18/2019 10:59:00 AM EST [facility] ([facility]) Name Value Range Interpretation Code Description Data Elizabeth rce(s) Supporting Document(s) C reactive protein [Mass/volume] in Serum or Plasma by High sensitivity method 3.36 mg/dL 0.00-0.30 [facility] ([facility] ) ID Date Data Source [id number] 10/18/2019 10:58:00 AM EST [facility] ([facility]) Name Value Range Interpretation Code Description Data Elizabeth rce(s) Supporting Document(s) Erythrocyte sedimentation rate by Westergren method 34 mm/hr 0-15 [facility] ([place] [facility]) ID Date Data Source [id number] 10/18/2019 10:58:00 AM EST [facility] ([facility]) Name Value Range Interpretation Code Description Data Elizabeth rce(s) Supporting Document(s) Leukocytes [#/volume] in Blood by Automated count 9.3 x10*3/UL 4.1-10 .9 [facility] ([facility]) Erythrocytes [#/volume] in Blood by Automated count 4.75 x10*6/UL 4.2 0-6.30 [facility] ([facility]) MCV 83.6 fL 80.0-97.0 [facility] ([place] [facility] Hematocrit [Volume Fraction] of Blood by Automated count 39.7 % 3 7.0-51.0 [facility] ([facility]) Hemoglobin [Mass/volume] in Blood 13.4 g/dL 12.0-18.0 [facility] ([facility]) MCH 28.3 pg 26.0-32.0 [facility] ([place] [facility]) MCHC 33.9 g/dL 31.0-38.0 [facility] ([facility]) Platelets [#/volume] in Blood by Automated count 279 x10*3/UL 140-440 [facility] Erythrocyte distribution width [Ratio] by Automated count 13.0 % 11.6-13.7 [facility] ([facility]) Lymph % 12.2 % 10.0-58.5 [facility] ([place] [facility] Mid % 3.6 % 1.7-9.3 [facility] ([facility]) MPV 8.2 FL 7.8-11.0 [facility] ([facility]) Mid # 0.4 x10*3/UL 0.1-0.6 [facility] ([place] [facility]) Neut % 84.2 % 37.0-92.0 [facility] ([place] [facility] Lymph # 1.1 x10*3/UL 0.6-4.1 [facility] ([facility]) Neut # 7.8 x10*3/UL 2.0-7.8 [facility] ([facility]) ID Date Data Source [id number] 10/17/2019 12:21:00 PM EST [facility] ([facility]) Name Value Range Interpretation Code Description Data Elizabeth rce(s) Supporting Document(s) C reactive protein [Mass/volume] in Serum or Plasma by High sensitivity method 3.02 mg/dL 0.00-0.30 [facility] ) Fibrin D-dimer FEU [Mass/volume] in Platelet poor plasma 3962.33 ng/m L [facility] ([facility]) ID Date Data Source [id number] 10/17/2019 12:20:00 PM EST [facility] ([facility]) Name Value Range Interpretation Code Description Data Elizabeth rce(s) Supporting Document(s) Erythrocyte sedimentation rate by Westergren method 32 mm/hr 0-15 [facility] ([facility]) ID Date Data Source [id number] 10/17/2019 12:20:00 PM EST [facility] ([facility]) Name Value Range Interpretation Code Description Data Elizabeth rce(s) Supporting Document(s) Hemoglobin [Mass/volume] in Blood 14.2 g/dL 12.0-18.0 [facility] ([facility]) Erythrocytes [#/volume] in Blood by Automated count 5.02 x10*6/UL 4.2 0-6.30 [facility] ([facility]) Leukocytes [#/volume] in Blood by Automated count 13.9 x10*3/UL 4.1-1 0.9 [facility] ([facility]) NOTE: RESULT VERIFIED. Hematocrit [Volume Fraction] of Blood by Automated count 42.1 % 3 7.0-51.0 [facility] ([facility]) MCV 83.8 fL 80.0-97.0 [facility] ([facility]) MCH 28.3 pg 26.0-32.0 [facility] ([facility]) MCHC 33.7 g/dL 31.0-38.0 [facility] ([facility]) Platelets [#/volume] in Blood by Automated count 308 x10*3/UL 140-440 [facility] ([facility]) Lymphocytes/100 leukocytes in Blood by Automated count 10.2 % 10. 0-58.5 [facility] ([facility]) Platelet mean volume [Entitic volume] in Blood by Hebert 8.5 FL 7.8-11.0 [facility] ([facility]) Erythrocyte distribution width [Ratio] by Automated count 12.9 % 11.6-13.7 [facility] ([facility]) Mid # 0.4 x10*3/UL 0.1-0.6 [facility] ([facility]) Mid % 2.8 % 1.7-9.3 [facility] ([facility]) Lymph # 1.4 x10*3/UL 0.6-4.1 [facility] ([facility]) Neut % 87.0 % 37.0-92.0 [facility] ([facility]) Neutrophils [#/volume] in Semen by Manual count 12.1 x10*3/UL 2.0-7.8 [facility] ([facility]) ID Date Data Source [id number] 10/17/2019 12:20:00 PM EST [facility] ([facility]) Name Value Range Interpretation Code Description Data Elizabeth rce(s) Supporting Document(s) Leukocytes [#/volume] in Blood by Automated count 13.9 x10*3/UL 4.1-1 0.9 [facility] ([facility]) NOTE: RESULT VERIFIED. Erythrocytes [#/volume] in Blood by Automated count 5.02 x10*6/UL 4.2 0-6.30 [facility] ([facility]) Hematocrit [Volume Fraction] of Blood by Automated count 42.1 % 3 7.0-51.0 [facility] ([facility]) Hemoglobin [Mass/volume] in Blood 14.2 g/dL 12.0-18.0 [facility] ([facility]) MCV 83.8 fL 80.0-97.0 [facility] MCH 28.3 pg 26.0-32.0 [facility] [facility]) Erythrocyte distribution width [Ratio] by Automated count 12.9 % 11.6-13.7 [facility] ([facility]) MCHC 33.7 g/dL 31.0-38.0 [facility]) Platelets [#/volume] in Blood by Automated count 308 x10*3/UL 140-440 [facility] ([facility]) Lymph % 10.2 % 10.0-58.5 [facility] Mid % 2.8 % 1.7-9.3 [facility] MPV 8.5 FL 7.8-11.0 [facility] Neut % 87.0 % 37.0-92.0 [facility] Mid # 0.4 x10*3/UL 0.1-0.6 [facility] ([facility]) Lymph # 1.4 x10*3/UL 0.6-4.1 [facility] ([facility]) Neut # 12.1 x10*3/UL 2.0-7.8 [facility] ([facility]) ID Date Data Source [id number] 10/17/2019 12:20:00 PM EST [facility] ([facility]) Name Value Range Interpretation Code Description Data Elizabeth rce(s) Supporting Document(s) Erythrocyte sedimentation rate by Westergren method 32 mm/hr 0-15 [facility] ([facility]) ID Date Data Source [id number] 10/16/2019 12:00:00 AM EST [facility] Veronica De Los Santos DO Patient Name: SANTOSH [id number] [facility] Date of : 1945[address] Date of Exam: [facility] [place] [id number]#: Fax: [phone] EXAM: US EXTREMITY VEINS, UNILATERALCLINICAL [...] extremity femoral andpopliteal venous system.Accredited by the [employer] in Vascular PeripheralUltrasound.DIANE Kaplan/Alvarado you for referring SANTOSH COOK to our office. Electronically Signed - MENDEZ HUIZAR MD 10/17/19 10:57 Name Value Range Interpretation Code Description Data Elizabeth rce(s) Supporting Document(s) ID Date Data Source [id number] 09/27/2019 09:36:00 AM EST [facility] ([facility]) Name Value Range Interpretation Code Description Data Elizabeth rce(s) Supporting Document(s) Glucose, Fasting 106 mg/dL 70-100 [facility] ([facility]) Creatinine For GFR 1.15 mg/dL 0.55-1.30 [facility] ([facility]) Glomerular Filtration Rate 49.1 MED E[facility] ([facility]) <content>Units are mL/min/1.73 m2</content>
<content></content>
<content>Chronic Kidney Disease Staging per NKF:</content>
<content></content>
<content>Stage I & II GFR >=60 Normal to Mildly Decreased</content>
<content>Stage III GFR 30- 59 Moderately Decreased</content>
<content>Stage IV GFR 15-29 Severely Decreased</content>
<content>Stage V GFR <15 Very Little GFR Left</content>
<content>ESRD GFR <15 on HEAD WELL PULLER</content>
<content></content> Blood Urea Nitrogen 25 mg/dL 7-18 [facility] ([facility]) Sodium Level 144 meq/L 136-145 [facility] ([facility]) Potassium Serum 4.4 meq/L 3.5-5.1 [facility] ([facility]) Chloride Level 108 meq/L 98-107 [facility] ([facility]) Carbon Dioxide Level 28 meq/L 21-32 [facility] ([facility]) Anion Gap 8 meq/L 8-16 [facility] Alt/SGPT 26 U/L 12-78 [facility] Ast/Sgot 13 U/L 7-37 [facility] ([facility]) Calcium Level 9.3 mg/dL 8.8-10.2 [facility]) Alkaline Phosphatase 120 U/L 45-117 [facility] ([facility]) Bilirubin,Total 0.6 mg/dL 0.2-1.0 [facility] ([facility]) Total Protein 6.9 GM/DL 6.4-8.2 [facility] ([facility]) Albumin 3.8 GM/DL 3.2-5.2 [facility] ([facility]) Albumin/Globulin Ratio 1.23 1.00-1.93 SC DENT ([facility]) ID Date Data Source [id number] 09/27/2019 09:36:00 AM EST [facility] ([facility]) Name Value Range Interpretation Code Description Data Elizabeth rce(s) Supporting Document(s) Erythrocyte sedimentation rate by Westergren method 18 mm/hr 0-30 [facility] ([facility]) ID Date Data Source [id number] 09/27/2019 09:36:00 AM EST [facility] ([facility]) Name Value Range Interpretation Code Description Data Elizabeth rce(s) Supporting Document(s) White Blood Count 8.2 10 4.0-10.0 [facility] ([facility]) Red Blood Count 5.09 10 4.00-5.40 [facility] ([facility]) Hemoglobin 14.5 g/dL 12.0-15.5 [facility] ([facility]) Hematocrit 45.4 % 36.0-47.0 [facility] ([facility]) Mean Corpuscular Hemoglobin 28.5 pg 27.0-33.0 [facility] ([facility]) Mean Corpuscular Volume 89.2 fl 80.0-96.0 M EDENT ([facility]) Platelet Count, Automated 305 10 150-450 [facility] ([facility]) Red Cell Distribution Width 13.3 % 11.5-14.5 [facility] ([facility]) Mean Corpuscular HGB Conc 31.9 g/dL 32.0-36.5 [facility] ([facility]) Nucleated Red Blood Cell % 0.0 % 0-0 MED [facility] ([facility]) ID Date Data Source [id number] 09/27/2019 09:36:00 AM EST [facility] ([facility]) Name Value Range Interpretation Code Description Data Elizabeth rce(s) Supporting Document(s) Prothrombin Time 12.8 s 11.8-14.0 [facility] ([facility]) Inr 0.99 [facility] ([facility]) THERAPUTIC HUMAN INR VALUES INDICATIONS NORMAL RANGES PROPHYLAXIS/TREATMENT OF: VENOUS THROMBOSIS 2.0-3.0 PULMONARY EMBOLISM 2.0-3.0 PREVENTION OF SYSTEMIC EMBOLISM FROM: TISSUE HEART VALVES 2.0-3.0 ACUTE MYOCARDIAL INFARCTION 2.0-3.0 VALVULAR HEART DISEASE 2.0-3.0 ATRIAL FIBRILLATION 2.0-3.0 MECHANICAL VALVES(HIGH RISK) 2.5-3.5 RECURRENT MYOCARDIAL INFARCTION 2.5-3.5 ID Date Data Source [id number] 09/27/2019 09:36:00 AM EST [facility] ([facility]) Name Value Range Interpretation Code Description Data Elizabeth rce(s) Supporting Document(s) Prothrombin Time 12.8 s 11.8-14.0 [facility] ([facility]) Inr 0.99 [facility] ([place] [facility] THERAPUTIC HUMAN INR VALUES INDICATIONS NORMAL RANGES PROPHYLAXIS/TREATMENT OF: VENOUS THROMBOSIS 2.0-3.0 PULMONARY EMBOLISM 2.0-3.0 PREVENTION OF SYSTEMIC EMBOLISM FROM: TISSUE HEART VALVES 2.0-3.0 ACUTE MYOCARDIAL INFARCTION 2.0-3.0 VALVULAR HEART DISEASE 2.0-3.0 ATRIAL FIBRILLATION 2.0-3.0 MECHANICAL VALVES(HIGH RISK) 2.5-3.5 RECURRENT MYOCARDIAL INFARCTION 2.5-3.5 ID Date Data Source [id number] 09/27/2019 09:36:00 AM EST [facility] ([facility]) Name Value Range Interpretation Code Description Data Elizabeth rce(s) Supporting Document(s) Creatinine For GFR 1.15 mg/dL 0.55-1.30 [facility] ([facility]) Glucose, Fasting 106 mg/dL 70-100 [facility] ([facility]) Glomerular Filtration Rate 49.1 MED E[facility] ([facility]) <content>Units are mL/min/1.73 m2</content>
<content></content>
<content>Chronic Kidney Disease Staging per NKF:</content>
<content></content>
<content>Stage I & II GFR >=60 Normal to Mildly Decreased</content>
<content>Stage III GFR 30- 59 Moderately Decreased</content>
<content>Stage IV GFR 15-29 Severely Decreased</content>
<content>Stage V GFR <15 Very Little GFR Left</content>
<content>ESRD GFR <15 on HEAD WELL PULLER</content>
<content></content> Blood Urea Nitrogen 25 mg/dL 7-18 [facility] ([facility]) Potassium Serum 4.4 meq/L 3.5-5.1 [facility] ([facility]) Chloride Level 108 meq/L 98-107 [facility] ([facility]) Sodium Level 144 meq/L 136-145 [facility] ([facility]) Anion Gap 8 meq/L 8-16 [facility] ([facility]) Carbon Dioxide Level 28 meq/L 21-32 [facility] Calcium Level 9.3 mg/dL 8.8-10.2 [facility] ([facility]) Alkaline Phosphatase 120 U/L 45-117 [facility] ([facility]) Bilirubin,Total 0.6 mg/dL 0.2-1.0 [facility] ([facility]) Alt/SGPT 26 U/L 12-78 [facility] ([place] [facility]) Ast/Sgot 13 U/L 7-37 [facility] ([facility]) Albumin 3.8 GM/DL 3.2-5.2 [facility] ([facility]) Total Protein 6.9 GM/DL 6.4-8.2 [facility] ([facility]) Albumin/Globulin Ratio 1.23 1.00-1.93 [facility] ([facility]) ID Date Data Source [id number] 09/27/2019 09:36:00 AM EST [facility] ([facility]) Name Value Range Interpretation Code Description Data Elizabeth rce(s) Supporting Document(s) Erythrocyte sedimentation rate by Westergren method 18 mm/hr 0-30 [facility] ([facility]) ID Date Data Source [id number] 09/27/2019 09:36:00 AM EST [facility] ([facility]) Name Value Range Interpretation Code Description Data Elizabeth rce(s) Supporting Document(s) White Blood Count 8.2 10 4.0-10.0 [facility] ([facility]) Hematocrit 45.4 % 36.0-47.0 [facility] ([facility]) Hemoglobin 14.5 g/dL 12.0-15.5 [facility] ([facility]) Red Blood Count 5.09 10 4.00-5.40 [facility] ([facility]) Mean Corpuscular Volume 89.2 fl 80.0-96.0 [facility] ([facility]) Mean Corpuscular HGB Conc 31.9 g/dL 32.0-36.5 MEDE NT ([facility]) Mean Corpuscular Hemoglobin 28.5 pg 27.0-33.0 SC DENT ([facility]) Red Cell Distribution Width 13.3 % 11.5-14.5 SC DENT ([facility]) Nucleated Red Blood Cell % 0.0 % 0-0 MED [facility] ([facility]) Platelet Count, Automated 305 10 150-450 MEDE NT ([facility]) ID Date Data Source [id number] 09/14/2019 12:00:00 AM EST [facility] Tonja Cardenas MD Patient Name: SANTOSH [id number] [facility] Date of : [address] Date of Exam: 09/14/2019[place] Resendez [id number]#: Fax: [phone] EXAM: MAMMO SCREENING WITH CADCLINICAL [...] rce(s) Supporting Document(s) ID Date Data Source [id number] 09/14/2019 10:12:00 AM EST [facility] ([facility]) Name Value Range Interpretation Code Description Data Elizabeth rce(s) Supporting Document(s) 3D Bi-Lateral Mammogram Laboratory [facility]) Dexa/Bone Density Laboratory test result [facility] ([facility]) Procedure Vital Signs ID Date Data Source [id number] Name Value Range Interpretation Code Description Data Source(s) Body mass index (BMI) [Ratio] 29.6 kg/m2 29.6 k g/m2 [facility] ([facility]) Body weight 153.00 [lb_av] 153.00 [lb_av] [facility] T ([facility]) Body height 60.25 [in_i] 60.25 [in_i] [facility] 5'0.25" Heart rate 96 /min 96 /min [facility] ([facility]) Diastolic blood pressure 68 mm[Hg] 68 mm[Hg] [facility] ([facility]) RT Arm Systolic blood pressure 106 mm[Hg] 106 mm[Hg] M EDENT ([facility]) RT Arm Respiratory rate 14 /min 14 /min [facility] ( [facility] Body mass index (BMI) [Ratio] 29.4 kg/m2 29.4 k g/m2 [facility] ([facility]) Body weight 155.50 [lb_av] 155.50 [lb_av] MEDEN T ([facility]) Body height 61 [in_i] 61 [in_i] [facility] ([facility]) 5'1" Body temperature 96.8 [degF] 96.8 [degF] [facility] ([facility] Heart rate 75 /min 75 /min [facility] ([facility] Diastolic blood pressure 80 mm[Hg] 80 mm[Hg] [facility] ([facility]) Systolic blood pressure 124 mm[Hg] 124 mm[Hg] M EDENT ([facility]) Body height 60.25 [in_i] 60.25 [in_i] [facility] ([facility]) 5'0.25" Heart rate 94 /min 94 /min [facility] ([facility]) Diastolic blood pressure 72 mm[Hg] 72 mm[Hg] [facility] ([facility]) RT Arm Systolic blood pressure 122 mm[Hg] 122 mm[Hg] [facility] RT Arm Body mass index (BMI) [Ratio] 30.3 kg/m2 30.3 k g/m2 [facility] ([facility]) Oxygen saturation in Arterial blood by Pulse oximetry 99 % 99 % [facility] ([facility]) RM Air Body weight 156.50 [lb_av] 156.50 [lb_av] MEDEN T ([facility]) Body mass index (BMI) [Ratio] 30.0 kg/m2 30.0 k g/m2 [facility] ([facility]) Oxygen saturation in Arterial blood by Pulse oximetry --post exerci se 92 % 92 % [facility] ([facility]) RM Air Body weight 155.00 [lb_av] 155.00 [lb_av] MEDEN T ([facility]) Body height 60.25 [in_i] 60.25 [in_i] [facility] ([facility] 5'0.25" Heart rate 117 /min 117 /min [facility] ([facility]) Diastolic blood pressure 70 mm[Hg] 70 mm[Hg] [facility] ([facility]) RT Arm Systolic blood pressure 132 mm[Hg] 132 mm[Hg] [facility] RT Arm Body mass index (BMI) [Ratio] 28.0 kg/m2 28.0 k g/m2 [facility] ([place] [facility]) Body height 62 [in_i] 62 [in_i] MED[facility] ([facility]) 5'2" Body weight 153.00 [lb_av] 153.00 [lb_av] MEDEN T ([facility]) Body temperature 98.0 [degF] 98.0 [degF] [facility] ([place] [facility] [place]) Oxygen saturation in Arterial blood by Pulse oximetry 97 % 97 % [facility] ([facility], [facility]) Respiratory rate 18 /min 18 /min [facility] ( [facility], [facility]) Heart rate 90 /min 90 /min [facility] ([facility], [facility]) Diastolic blood pressure 68 mm[Hg] 68 mm[Hg] [facility] ([facility], [facility]) Systolic blood pressure 96 mm[Hg] 96 mm[Hg] M EDENT ([place] [facility] [place]) Body mass index (BMI) [Ratio] 28.5 kg/m2 28.5 k g/m2 [facility] ([facility] Body weight 149.50 [lb_av] 149.50 [lb_av] MEDEN T ([facility] Body height 60.75 [in_i] 60.75 [in_i] [facility] ([facility] 5'0.75" Body temperature 97.5 [degF] 97.5 [degF] [facility] ([facility] Body mass index (BMI) [Ratio] 29.7 kg/m2 29.7 k g/m2 [facility] ([facility]) Oxygen saturation in Arterial blood by Pulse oximetry --post exerci se 94 % 94 % [facility] ([facility]) RM Air Body weight 153.12 [lb_av] 153.12 [lb_av] MEDEN T ([facility]) Body height 60.25 [in_i] 60.25 [in_i] [facility] ( [facility]) 5'0.25" Heart rate 87 /min 87 /min MED[facility] ([facility]) Diastolic blood pressure 60 mm[Hg] 60 mm[Hg] [facility] ([facility]) RT Arm Systolic blood pressure 92 mm[Hg] 92 mm[Hg] M EDENT ([facility]) RT Arm Body temperature 97.2 [degF] 97.2 [degF] [facility] ([facility] Body mass index (BMI) [Ratio] 31.6 kg/m2 31.6 k g/m2 [facility] ([facility]) Oxygen saturation in Arterial blood by Pulse oximetry --post exerci se 97 % 97 % [facility] ([facility]) RM Air Body weight 163.12 [lb_av] 163.12 [lb_av] MEDEN T ([facility]) Body height 60.25 [in_i] 60.25 [in_i] [facility] ([facility]) 5'0.25" Heart rate 76 /min 76 /min [facility] Diastolic blood pressure 58 mm[Hg] 58 mm[Hg] [facility] ([facility]) RT Arm Systolic blood pressure 118 mm[Hg] 118 mm[Hg] [facility] ([facility]) RT Arm Body mass index (BMI) [Ratio] 31.0 kg/m2 31.0 k g/m2 [facility] ([facility]) Oxygen saturation in Arterial blood by Pulse oximetry 99 % 99 % [facility] ([facility]) Body weight 160.00 [lb_av] 160.00 [lb_av] MEDEN T ([facility]) Body height 60.25 [in_i] 60.25 [in_i] [facility] ([facility]) 5'0.25" Heart rate 70 /min 70 /min MED[facility] ([facility]) Diastolic blood pressure 70 mm[Hg] 70 mm[Hg] [facility]) Systolic blood pressure 114 mm[Hg] 114 mm[Hg] [facility] ([facility]) Body mass index (BMI) [Ratio] 31.4 kg/m2 31.4 k g/m2 [facility] ([facility]) Oxygen saturation in Arterial blood by Pulse oximetry 97 % 97 % [facility] ([facility]) Body weight 162.00 [lb_av] 162.00 [lb_av] MEDEN T ([facility]) Body height 60.25 [in_i] 60.25 [in_i] [facility] ([facility]) 5'0.25" Heart rate 71 /min 71 /min [facility] Diastolic blood pressure 70 mm[Hg] 70 mm[Hg] [facility] ([facility]) Systolic blood pressure 116 mm[Hg] 116 mm[Hg] M [facility] ([facility]) Body mass index (BMI) [Ratio] 32.3 kg/m2 32.3 k g/m2 [facility] ([facility]) Oxygen saturation in Arterial blood by Pulse oximetry 95 % 95 % [facility]) RM Air Body weight 167.00 [lb_av] 167.00 [lb_av] MEDEN T ([facility]) Body height 60.25 [in_i] 60.25 [in_i] [facility] ([facility]) 5'0.25" Body mass index (BMI) [Ratio] 32.1 kg/m2 32.1 k g/m2 [facility]) Body weight 165.50 [lb_av] 165.50 [lb_av] MEDEN T ([facility]) Body height 60.25 [in_i] 60.25 [in_i] [facility] ([facility]) 5'0.25" Heart rate 92 /min 92 /min MED[facility] ([facility]) Diastolic blood pressure 74 mm[Hg] 74 mm[Hg] [facility]) RT Arm Systolic blood pressure 136 mm[Hg] 136 mm[Hg] [facility] ([facility]) RT Arm Body mass index (BMI) [Ratio] 32.8 kg/m2 32.8 k g/m2 [facility]) Oxygen saturation in Arterial blood by Pulse oximetry --post exerci se 95 % 95 % [facility]) RM Air Body weight 169.50 [lb_av] 169.50 [lb_av] MEDEN T ([facility]) Body height 60.25 [in_i] 60.25 [in_i] [facility] ([facility]) 5'0.25" Heart rate 84 /min 84 /min MED[facility] ([facility]) Diastolic blood pressure 52 mm[Hg] 52 mm[Hg] [facility] ([facility]) RT Arm Systolic blood pressure 122 mm[Hg] 122 mm[Hg] M [facility] ([facility]) RT Arm Body mass index (BMI) [Ratio] 32.6 kg/m2 32.6 k g/m2 [facility] ([facility]) Body weight 168.50 [lb_av] 168.50 [lb_av] MEDEN T ([facility]) Body height 60.25 [in_i] 60.25 [in_i] [facility] ([facility]) 5'0.25" Heart rate 88 /min 88 /min MED[facility] ([facility]) Diastolic blood pressure 58 mm[Hg] 58 mm[Hg] [facility]) RT Arm Systolic blood pressure 102 mm[Hg] 102 mm[Hg] [facility] ([facility]) RT Arm Body mass index (BMI) [Ratio] 33.4 kg/m2 33.4 k g/m2 [facility] Oxygen saturation in Arterial blood by Pulse oximetry --post exerci se 94 % 94 % [facility] ([facility]) RM Air Body weight 172.50 [lb_av] 172.50 [lb_av] MEDEN T ([facility]) Body height 60.25 [in_i] 60.25 [in_i] [facility] ([facility] 5'0.25" Heart rate 80 /min 80 /min [facility] ([facility]) Diastolic blood pressure 80 mm[Hg] 80 mm[Hg] [facility]) RT Arm Systolic blood pressure 122 mm[Hg] 122 mm[Hg] [facility] HOSPITAL ([facility]) RT Arm Body mass index (BMI) [Ratio] 33.3 kg/m2 33.3 k g/m2 MEDENT ([facility]) Oxygen saturation in Arterial blood by Pulse oximetry --post exerci se 96 % 96 % MED[facility] ([facility]) RM Air Body weight 172.00 [lb_av] 172.00 [lb_av] MEDEN T ([facility]) Body height 60.25 [in_i] 60.25 [in_i] MED[facility] ([facility]) 5'0.25" Heart rate 92 /min 92 /min MEDENT ([facility]) Diastolic blood pressure 74 mm[Hg] 74 mm[Hg] MEDENT ([facility]) RT Arm Systolic blood pressure 140 mm[Hg] 140 mm[Hg] M EDENT ([facility]) RT Arm Body mass index (BMI) [Ratio] 33.2 kg/m2 33.2 k g/m2 MED[facility] ([facility]) Body weight 171.38 [lb_av] 171.38 [lb_av] MEDEN T ([facility]) Body height 60.25 [in_i] 60.25 [in_i] MED[facility] ([facility]) 5'0.25" Heart rate 96 /min 96 /min MEDENT ([facility]) Diastolic blood pressure 64 mm[Hg] 64 mm[Hg] MEDENT ([facility]) RT Arm Systolic blood pressure 146 mm[Hg] 146 mm[Hg] [facility] Arm Body mass index (BMI) [Ratio] 33.3 kg/m2 33.3 k g/m2 MEDENT ([facility]) Oxygen saturation in Arterial blood by Pulse oximetry 96 % 96 % MED[facility] ([facility]) RM Air Body weight 172.00 [lb_av] 172.00 [lb_av] MEDEN T ([facility]) Body height 60.25 [in_i] 60.25 [in_i] [facility] ([facility]) 5'0.25" Heart rate 90 /min 90 /min MEDENT ([facility]) Diastolic blood pressure 70 mm[Hg] 70 mm[Hg] MEDENT ([facility]) Systolic blood pressure 118 mm[Hg] 118 mm[Hg] [facility] Respiratory rate 20 /min 20 /min MEDENT ( [facility] ) Body mass index (BMI) [Ratio] 317.5 kg/m2 317.5 kg/m2 MEDENT ([facility] ) Body weight 1708.00 [lb_av] 1708.00 [lb_av] MED ENT ([facility] ) Body height 61.5 [in_i] 61.5 [in_i] MEDENT ([facility]) 5'1.50" Body temperature 96.4 [degF] 96.4 [degF] MED[facility] ([facility]) Heart rate 80 /min 80 /min MEDENT ([facility]) Diastolic blood pressure 62 mm[Hg] 62 mm[Hg] MEDENT ([facility]) Systolic blood pressure 98 mm[Hg] 98 mm[Hg] M EDENT ([facility]) Body mass index (BMI) [Ratio] 32.2 kg/m2 32.2 k g/m2 MED[facility] ([facility]) Body weight 166.50 [lb_av] 166.50 [lb_av] MEDEN T ([facility]) Body height 60.25 [in_i] 60.25 [in_i] MEDENT ([facility]) 5'0.25" Heart rate 88 /min 88 /min MEDENT ([facility]) Diastolic blood pressure 78 mm[Hg] 78 mm[Hg] MEDENT ([facility]) RT Arm Systolic blood pressure 128 mm[Hg] 128 mm[Hg] M EDENT ([facility]) RT Arm Diastolic blood pressure 69 mm[Hg] 69 mm[Hg] eCW1 ([facility]) Systolic blood pressure 142 mm[Hg] 142 mm[Hg] e CW1 ([facility]) Body temperature 97.2 [degF] 97.2 [degF] eCW1 ( [facility]) Respiratory rate 16 /min 16 /min eCW1 ([facility]) Heart rate 78 /min 78 /min eCW1 ([facility]) Body mass index (BMI) [Ratio] 31.16 kg/m2 31.16 kg/m2 eCW1 ([facility]) Body height 62 [in_us] 62 [in_us] eCW1 ([facility]) Body weight Measured 170.4 [lb_av] 170.4 [lb_av ] eCW1 ([facility]) Diastolic blood pressure 72 mm[Hg] 72 mm[Hg] eCW1 ([facility]) Systolic blood pressure 140 mm[Hg] 140 mm[Hg] e CW1 ([facility]) Body temperature 96.0 [degF] 96.0 [degF] eCW1 ( [facility]) Respiratory rate 16 /min 16 /min eCW1 ([facility]) Heart rate 104 /min 104 /min eCW1 ([facility]) Body mass index (BMI) [Ratio] 31.24 kg/m2 31.24 kg/m2 eCW1 ([facility]) Body height 62 [in_us] 62 [in_us] eCW1 ([facility]) Body weight Measured 170.8 [lb_av] 170.8 [lb_av ] eCW1 ([facility]) Body mass index (BMI) [Ratio] 32.0 kg/m2 32.0 k g/m2 MEDENT ([facility]) Body weight 172.00 [lb_av] 172.00 [lb_av] MEDEN T ([facility]) Body height 61.5 [in_i] 61.5 [in_i] MEDENT ([facility]) 5'1.50" Diastolic blood pressure 73 mm[Hg] 73 mm[Hg] eCW1 ([facility]) Systolic blood pressure 131 mm[Hg] 131 mm[Hg] e CW1 ([facility]) Body temperature 96.1 [degF] 96.1 [degF] eCW1 ( [facility]) Respiratory rate 16 /min 16 /min eCW1 ([facility]) Heart rate 85 /min 85 /min eCW1 ([facility]) Body mass index (BMI) [Ratio] 31.64 kg/m2 31.64 kg/m2 eCW1 ([facility]) Body height 62 [in_us] 62 [in_us] eCW1 ([facility]) Body weight Measured 173.0 [lb_av] 173.0 [lb_av ] eCW1 ([facility]) Diastolic blood pressure 75 mm[Hg] 75 mm[Hg] eCW1 ([facility]) Systolic blood pressure 146 mm[Hg] 146 mm[Hg] e CW1 ([facility]) Body temperature 97.5 [degF] 97.5 [degF] eCW1 ( [facility]) Respiratory rate 16 /min 16 /min eCW1 ([facility]) Heart rate 87 /min 87 /min eCW1 ([facility]) Body mass index (BMI) [Ratio] 30.98 kg/m2 30.98 kg/m2 eCW1 ([facility]) Body height 62 [in_us] 62 [in_us] eCW1 ([facility]) Body weight Measured 169.4 [lb_av] 169.4 [lb_av ] eCW1 ([facility])
[2020-09-02] MEDS: LEVOTHYROXINE 25MCG TABLET (0.025MG) PO SCH (11:43)
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
[2020-09-02 12:53] VITALS: BP 137/71
[2020-09-02] MEDS: CIPROFLOXACIN 400 MG in IV 1 EA IV SCH ×2 (13:09→21:47)
[2020-09-02] MEDS: ROSUVASTATIN 10 MG TAB (CRESTOR) PO SCH (13:10)
[2020-09-02] MEDS: VITAMIN D 1,000 INTERNATIONAL UNITS TABLET PO SCH (13:10)
[2020-09-02] MEDS: OMEPRAZOLE 20 MG CAP PO SCH (13:10)
[2020-09-02] MEDS: NS 1,000 ML IV SCH ×2 (13:10→22:30)
[2020-09-02] MEDS: ACETAMINOPHEN 500 MG TAB PO PRN ×2 (13:11→21:50)
[2020-09-02 13:25] LABS: FREE T4 0.94 NG/DL (0.76-1.46)
[2020-09-02] MEDS ORDERED: RECL5INJ2 IV (15:19)
[2020-09-02 16:15] VITALS: BP 140/62
[2020-09-02] MEDS: tiZANidine 4 MG TAB PO SCH ×2 (16:18→21:49)
[2020-09-02] MEDS: RIVAROXABAN 15 MG TAB (XARELTO) PO SCH (17:45)
[2020-09-02 20:00] VITALS: BP 131/60
[2020-09-02] MEDS: FLUTICASONE PROP 0.05% NASAL SPRAY 16 GM (FLONASE) SCH (21:00)
[2020-09-02] MEDS: FAMOTIDINE 20 MG TAB PO SCH (21:50)
[2020-09-03] VITALS: BP 92/50
[2020-09-03 04:00] VITALS: BP 100/57
[2020-09-03] MEDS: LEVOTHYROXINE 25MCG TABLET (0.025MG) PO SCH (05:28)
[2020-09-03] MEDS: ACETAMINOPHEN 500 MG TAB PO PRN ×2 (05:28→17:23)
[2020-09-03 06:36] LABS: HEMATOCRIT 30.6 % (36.0-47.0); MEAN CORPUSCULAR HEMOGLOBIN 27.4 pg (27.0-33.0); MEAN CORPUSCULAR HGB CONC 31.4 g/dl (32.0-36.5); MEAN CORPUSCULAR VOLUME 87.4 fl (80.0-96.0); PLATELET COUNT, AUTOMATED 213 10^3/uL (150-450); WHITE BLOOD COUNT 6.9 10^3/uL (4.0-10.0)
[2020-09-03 06:44] LABS: CALCIUM LEVEL 8.3 MG/DL (8.8-10.2); CREATININE FOR GFR 1.1 MG/DL (0.55-1.30); GLOMERULAR FILTRATION RATE 51.5 (>39); MAGNESIUM LEVEL 1.9 MG/DL (1.8-2.4); POTASSIUM SERUM 3.5 MEQ/L (3.5-5.1)
[2020-09-03 06:59] LABS: HEMOGLOBIN 9.6 g/dl (12.0-15.5)
[2020-09-03 07:18] VITALS: BP 124/61
[2020-09-03] MEDS: CIPROFLOXACIN 400 MG in IV 1 EA IV SCH ×2 (09:05→21:14)
[2020-09-03] MEDS: OMEPRAZOLE 20 MG CAP PO SCH (09:05)
[2020-09-03] MEDS: tiZANidine 4 MG TAB PO SCH ×3 (09:06→21:15)
[2020-09-03] MEDS: ROSUVASTATIN 10 MG TAB (CRESTOR) PO SCH (09:06)
[2020-09-03] MEDS: VITAMIN D 1,000 INTERNATIONAL UNITS TABLET PO SCH (09:06)
[2020-09-03] MEDS ORDERED: POTASSIUM CHLORIDE 10 MEQ SR TABLET PO ONE (09:15)
--- NOTE | 2020-09-03 10:30 | ECGEPIP ---
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
[2020-09-03 11:15] VITALS: BP 113/59
[2020-09-03 14:00] VITALS: BP 109/65
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
[2020-09-03] MEDS: RIVAROXABAN 15 MG TAB (XARELTO) PO SCH (17:18)
[2020-09-03] MEDS ORDERED: CALCIUM CARBONATE 500 MG CHEW U/D PO PRN (18:45)
[2020-09-03] MEDS: FAMOTIDINE 20 MG TAB PO SCH (21:15)
[2020-09-03] MEDS: FLUTICASONE PROP 0.05% NASAL SPRAY 16 GM (FLONASE) SCH (21:15)
[2020-09-03 22:00] VITALS: BP 118/58
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
[2020-09-04] MEDS: ACETAMINOPHEN 500 MG TAB PO PRN ×3 (04:05→20:37)
[2020-09-04] MEDS: LEVOTHYROXINE 25MCG TABLET (0.025MG) PO SCH (05:24)
[2020-09-04 06:00] VITALS: BP 123/73
[2020-09-04 07:36] LABS: HEMATOCRIT 31.3 % (36.0-47.0); HEMOGLOBIN 10.2 g/dl (12.0-15.5); MEAN CORPUSCULAR HEMOGLOBIN 28.3 pg (27.0-33.0); MEAN CORPUSCULAR HGB CONC 32.6 g/dl (32.0-36.5); MEAN CORPUSCULAR VOLUME 86.9 fl (80.0-96.0); PLATELET COUNT, AUTOMATED 217 10^3/uL (150-450); WHITE BLOOD COUNT 5.6 10^3/uL (4.0-10.0)
[2020-09-04 08:10] LABS: BLOOD UREA NITROGEN 16 MG/DL (7-18); CALCIUM LEVEL 8.8 MG/DL (8.8-10.2); CARBON DIOXIDE LEVEL 19 MEQ/L (21-32); CHLORIDE LEVEL 114 MEQ/L (98-107); CREATININE FOR GFR 0.88 MG/DL (0.55-1.30); GLOMERULAR FILTRATION RATE > 60.0 (>39); GLUCOSE, FASTING 107 MG/DL (70-100); POTASSIUM SERUM 3.6 MEQ/L (3.5-5.1); SODIUM LEVEL 145 MEQ/L (136-145)
[2020-09-04] MEDS ORDERED: ACET-683 PO (08:36)
[2020-09-04] MEDS ORDERED: CALC200T15 PO (08:37)
[2020-09-04] MEDS ORDERED: CEPH500C3 PO (08:37)
[2020-09-04] MEDS: tiZANidine 4 MG TAB PO SCH ×3 (08:50→20:37)
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
[2020-09-04] MEDS: OMEPRAZOLE 20 MG CAP PO SCH (08:51)
[2020-09-04] MEDS: ROSUVASTATIN 10 MG TAB (CRESTOR) PO SCH (08:51)
[2020-09-04] MEDS: CIPROFLOXACIN 400 MG in IV 1 EA IV SCH (08:52)
[2020-09-04] MEDS: VITAMIN D 1,000 INTERNATIONAL UNITS TABLET PO SCH (08:52)
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
[2020-09-04 14:00] VITALS: BP 121/65
[2020-09-04] MEDS: CEPHALEXIN 500 MG CAP PO SCH ×3 (14:03→20:37)
[2020-09-04] MEDS: RIVAROXABAN 15 MG TAB (XARELTO) PO SCH (17:05)
[2020-09-04] MEDS: FAMOTIDINE 20 MG TAB PO SCH (20:36)
[2020-09-04] MEDS: FLUTICASONE PROP 0.05% NASAL SPRAY 16 GM (FLONASE) SCH (20:38)
[2020-09-04 22:00] VITALS: BP 117/62
[2020-09-05] MEDS: LEVOTHYROXINE 25MCG TABLET (0.025MG) PO SCH (05:12)
[2020-09-05 05:48] LABS: HEMATOCRIT 36.4 % (36.0-47.0); MEAN CORPUSCULAR HEMOGLOBIN 28.4 pg (27.0-33.0); MEAN CORPUSCULAR VOLUME 86.1 fl (80.0-96.0); PLATELET COUNT, AUTOMATED 262 10^3/uL (150-450); RED BLOOD COUNT 4.23 10^6/uL (4.00-5.40); WHITE BLOOD COUNT 6.4 10^3/uL (4.0-10.0)
[2020-09-05 06:14] LABS: CALCIUM LEVEL 8.9 MG/DL (8.8-10.2); CREATININE FOR GFR 0.98 MG/DL (0.55-1.30); GLOMERULAR FILTRATION RATE 58.9 (>39); POTASSIUM SERUM 3.3 MEQ/L (3.5-5.1)
[2020-09-05] MEDS: OMEPRAZOLE 20 MG CAP PO SCH (07:59)
[2020-09-05] MEDS: VITAMIN D 1,000 INTERNATIONAL UNITS TABLET PO SCH (07:59)
[2020-09-05] MEDS: ACETAMINOPHEN 500 MG TAB PO PRN ×3 (07:59→20:49)
[2020-09-05] MEDS: CEPHALEXIN 500 MG CAP PO SCH ×4 (08:00→20:48)
[2020-09-05] MEDS: tiZANidine 4 MG TAB PO SCH (08:01)
[2020-09-05] MEDS: ROSUVASTATIN 10 MG TAB (CRESTOR) PO SCH (08:02)
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
[2020-09-05 14:00] VITALS: BP 117/62
[2020-09-05] MEDS: valACYclovir HCL 500 MG TAB PO SCH ×2 (14:43→20:48)
[2020-09-05] MEDS: RIVAROXABAN 15 MG TAB (XARELTO) PO SCH (17:36)
[2020-09-05] MEDS: ESCITALOPRAM OXALATE 10 MG TAB (LEXAPRO) PO SCH (17:38)
[2020-09-05] MEDS: FAMOTIDINE 20 MG TAB PO SCH (20:48)
[2020-09-05] MEDS: FLUTICASONE PROP 0.05% NASAL SPRAY 16 GM (FLONASE) SCH (20:48)
[2020-09-05 22:00] VITALS: BP 146/69
[2020-09-06] MEDS: LEVOTHYROXINE 25MCG TABLET (0.025MG) PO SCH (05:10)
[2020-09-06 06:00] VITALS: BP 152/72
[2020-09-06 07:22] LABS: HEMATOCRIT 40.1 % (36.0-47.0); HEMOGLOBIN 13.2 g/dl (12.0-15.5); MEAN CORPUSCULAR HEMOGLOBIN 28.6 pg (27.0-33.0); MEAN CORPUSCULAR HGB CONC 32.9 g/dl (32.0-36.5); PLATELET COUNT, AUTOMATED 322 10^3/uL (150-450); RED BLOOD COUNT 4.61 10^6/uL (4.00-5.40); WHITE BLOOD COUNT 7.3 10^3/uL (4.0-10.0)
[2020-09-06 07:43] LABS: CALCIUM LEVEL 9.1 MG/DL (8.8-10.2); CREATININE FOR GFR 0.99 MG/DL (0.55-1.30); GLOMERULAR FILTRATION RATE 58.2 (>39); POTASSIUM SERUM 3.1 MEQ/L (3.5-5.1)
[2020-09-06] MEDS: CEPHALEXIN 500 MG CAP PO SCH ×2 (08:50→13:49)
[2020-09-06] MEDS: OMEPRAZOLE 20 MG CAP PO SCH (08:50)
[2020-09-06] MEDS: VITAMIN D 1,000 INTERNATIONAL UNITS TABLET PO SCH (08:50)
[2020-09-06] MEDS: valACYclovir HCL 500 MG TAB PO SCH (08:51)
[2020-09-06] MEDS: ESCITALOPRAM OXALATE 10 MG TAB (LEXAPRO) PO SCH (08:51)
[2020-09-06] MEDS: ROSUVASTATIN 10 MG TAB (CRESTOR) PO SCH (08:51)
[2020-09-06] MEDS: ACETAMINOPHEN 500 MG TAB PO PRN (11:25)
[2020-09-06] MEDS ORDERED: XARE15TA PO (13:42)
[2020-09-06] MEDS ORDERED: ESCI10TA16 PO (13:42)
[2020-09-06] MEDS ORDERED: CEPH500C PO (16:00)
== END 2020-09-06 14:10 | disposition home health service (06) | DRG 682 ==
LOC: M ED 04:57 → M ED INP 09:00 → M PCU 12:36 → M MS5PR 09-03 11:16
PROVIDERS: ADMIT Internal Medicine; ATTEND Internal Medicine
DX: N17.9 Acute kidney failure, unspecified (principal); G93.41 Metabolic encephalopathy; M62.82 Rhabdomyolysis; R45.851 Suicidal ideations; D68.2 Hereditary deficiency of other clotting factors; N39.0 Urinary tract infection, site not specified; E03.9 Hypothyroidism, unspecified; Z86.718 Personal history of other venous thrombosis and embolism; Z79.899 Other long term (current) drug therapy; F32.9 Major depressive disorder, single episode, unspecified; K21.9 Gastro-esophageal reflux disease without esophagitis; M91.0 Juvenile osteochondrosis of pelvis; K44.9 Diaphragmatic hernia without obstruction or gangrene; Z88.8 Allergy status to other drugs, medicaments and biological substances

== ENCOUNTER → 2020-10-28 | Outpatient (CLI) | payer MEDICARE, BC ==
[~2020-10-28] MED LIST changes: +ACET-683 PO; +BACL1TAB8 PO; +CALC200T15 PO; +CEPH500C PO; +CEPH500C3 PO; +CYCL5TAB PO; +MED REC COMMENT; +RECL5INJ2 IV
--- NOTE | 2020-10-28 11:29 | REPMRS ---
Patient History The patient states she had a clinical breast exam in October 2020. Patient is postmenopausal. No known family history of cancer. Digital Woman Screen Mammo: October 28, 2020 - Exam #: [id number] Bilateral CC and MLO view(s) were taken. Technologist: Manda Victoria, Technologist Prior study comparison: September 14, 2019, bilateral digital mammo screening bilat, performed at [facility]. June 01, 2018, bilateral digital mammo screening bilat, performed at [facility]. April 26, 2017, bilateral digital mammo screening bilat, performed at [facility]. FINDINGS: There are scattered fibroglandular densities. The Volpara volumetric breast density category is:B. There has been no change in the appearance of the mammogram from the prior studies. There is a mild amount of scattered fibroglandular density which is fairly symmetric. There is no interval development of dominant mass, architectural distortion, or grouped microcalcification suggestive of malignancy. 3-D tomosynthesis shows no additional findings. Assessment: BI-RADS/ACR category 1 mammogram. Negative Mammogram. Recommendation Routine screening mammogram of both breasts in 1 year (for women over age 40). This patient's [facility] Lifetime Breast Cancer Risk is estimated at 2.5 %. This mammogram was interpreted with the aid of an FDA-approved computer-aided dectection system. Electronically Signed By: Jared George MD 10/28/20 [id number]
== END ==
LOC: M WHC 08:50
PROVIDERS: ATTEND Internal Medicine
DX: Z12.31 Encounter for screening mammogram for malignant neoplasm of breast (principal); Z78.0 Asymptomatic menopausal state

== ENCOUNTER → 2020-11-06 | Outpatient (CLI) | payer MEDICARE, OTHER ==
--- NOTE | 2020-11-08 07:13 | ECWPNPC ---
PATIENT NAME: SANTOSH ARNDT : 1945 GENDER: FEMALE VISIT DATE: 11/06/2020 DISCHARGE DATE: 11/06/20 1111 VISIT LOCKED DATE TIME: PHYSICIAN: BAN GREENFIELD RESOURCE: BAN GREENFIELD REASON FOR APPOINTMENT 1. BACK PAIN HISTORY OF PRESENT ILLNESS GENERAL: - 75-YEAR-OLD FEMALE IN FOR CHRONIC PAIN FOLLOW-UP. SHE RATES HER PAIN CURRENTLY AT A 5 OUT OF 10. PATIENT STATES THE PAIN STARTS IN THE MIDDLE OF HER BACK. SHE DENIES RADICULOPATHY. FALL RISK SCREENING: SCREENING 2 FALLS WITH INJURY- WAS SEEN IN THE ER OVER THE WINTER FOR BACK PAIN . PAIN SCREENING: PATIENT HAS A COMPLAINT OF ACUTE OR CHRONIC PAIN :NO CERTAIN ACTIVITIES RAISE PAIN PAIN AVERAGES AROUND A 5 NURSING NOTE: -. PAIN CENTER INTAKE QUESTIONS: DO YOU HAVE A HISTORY OF MRSA? :NO DO YOU TAKE A BLOOD THINNERS? :YES XARELTO- FACTOR 5 LYDEN DO YOU HAVE ANY BLEEDING DISORDERS? :YES FACTOR 5 LYDEN ANY NEW NUMBNESS OR WEAKNESS IN YOUR LEGS OR ARMS? :NO ANY PACEMAKER,DEFIBRILLATOR, OR DORSAL COLUMN STIMULATOR? :NO DO YOU HAVE ANY RASHES OR OPEN SORES? :NO ARE YOU ALLERGIC TO IV DYE? :NO ARE YOU DIABETIC? :NO ANY NEW PROBLEMS WITH YOUR MEDICATIONS? :NO HAVE YOU RECEIVED A VACCINE IN THE PAST 30 DAYS? :YES IF SO WHAT VACCINE AND WHEN? 2ND COVID VACCINE 10/21/2020 DO YOU PLAN TO RECEIVE A VACCINE IN THE NEXT 21 DAYS? :NO DO YOU NEED ANY PRESCRIPTION? :NO DO YOU TAKE ANY IMMUNOSUPPRESSIVE MEDICATIONS? :NO DO YOU HAVE ANY KIDNEY OR LIVER DISEASE? :NO IS THERE A CHANCE YOU COULD BE ? :NO ARE YOU BREAST FEEDING? :NO CURRENT MEDICATIONS TAKING LEXAPRO 10 MG TABLET 1 TABLET ORALLY ONCE A DAY TAKING LEVOTHYROXINE SODIUM 25 MCG TABLET 1 TABLET ON AN EMPTY STOMACH IN THE MORNING ORALLY ONCE A DAY TAKING OMEPRAZOLE 20 MG CAPSULE DELAYED RELEASE 1 CAPSULE ORALLY ONCE A DAY TAKING ZYRTEC ALLERGY 10 MG TABLET 1 TABLET NEEDED ORALLY ONCE A DAY TAKING FLONASE ALLERGY RELIEF 50 MCG/ACT SUSPENSION 1 SPRAY IN EACH NOSTRIL NASALLY ONCE A DAY TAKING ADVAIR DISKUS 250-50 MCG/DOSE AEROSOL POWDER BREATH ACTIVATED 1 PUFF INHALATION TWICE A DAY NEEDED TAKING TENS THERAPY PAIN RELIEF - DEVICE TAKING ROSUVASTATIN CALCIUM 5 MG TABLET 1 TABLET ORALLY ONCE A DAY TAKING XARELTO 15 MG TABLET 1 TABLET WITH FOOD ORALLY ONCE A DAY TAKING RECLAST 5 MG/100ML SOLUTION DIRECTED INTRAVENOUS TAKING OXYCODONE HCL 5 MG CAPSULE 1 CAPSULE NEEDED ORALLY BID PRN NOT-TAKING TRAMADOL HCL 50 MG TABLET 2 TABLETS ORALLY EVERY 6 HRS NEEDED NOT-TAKING CYCLOBENZAPRINE HCL 5 MG TABLET 1 TABLET NEEDED ORALLY THREE TIMES A DAY NOT-TAKING RANITIDINE HCL 300 MG CAPSULE 1 CAPSULE ORALLY ONCE A DAY NOT-TAKING ASA 2 81 MG TABS ORAL NOT-TAKING GABAPENTIN 100 MG CAPSULE 1 CAPSULE ORALLY TWICE A DAY NOT-TAKING SIMVASTATIN 20 MG TABLET 1 TABLET IN THE EVENING ORALLY ONCE A DAY MEDICATION LIST REVIEWED AND RECONCILED WITH THE PATIENT PAST MEDICAL HISTORY CHRONIC BACK PAIN DDD HYPOTHYROIDISM ALLERGIES ELEVATED CHOLESTEROL DEPRESSION GERD OSTEOARTHRITIS ANXIETY PULMONARY EMBOLISM FACTOR 5 LIEDEN SYNDROME THORACIC SPINE FRACTURE ALLERGIES CLARITHROMYCIN: ANAPHYLAXIS - ALLERGY SPORANOX: HIVES - ALLERGY SURGICAL HISTORY HYSTERECTOMY GALLBLADDER REMOVAL BILATERAL TORN MENISCUS FUSION OF CERVIAL NECK SINUS SURGERY X3 RIGHT KNEE REPLACEMENT 02/2020 LEFT KNEE REPLACEMENT 06/2020 SOCIAL HISTORY GENERAL: TOBACCO USE ARE YOU A:NONSMOKER LATEX QUESTIONNAIRE LATEX ALLERGY : HAVE YOU EVER DEVELOPED ANY TYPE OF REACTION AFTER HANDLING LATEX PRODUCTS SUCH RUBBER GLOVES, CONDOMS, DIAPHRAGMS, BALLOONS, SOCKS, OR UNDERWEAR?NO LATEX ALLERGY : HAVE YOU EVER DEVELOPED ANY TYPE OF REACTION DURING OR AFTER DENTAL APPOINTMENT, VAGINAL/RECTAL EXAMINATION, SURGICAL PROCEDURE, OR ANY OTHER EXPOSURE?NO LATEX RISK : HAVE YOU EVER HAD ANY DIFFICULTY BREATHING OR HIVES AFTER EATING OR HANDLING ANY FRUITS, OR VEGETABLES; SUCH KIWI, BANANAS, STONE FRUITS, OR CHESTNUTSNO LATEX RISK : DO YOU HAVE A PREVIOUS PERSONAL HISTORY OF MORE THAN NINE SURGERIES, SPINA BIFIDA, OR REPEATED CATHERIZATIONS? NO LATEX RISK : ARE YOU FREQUENTLY EXPOSED TO LATEX PRODUCTS IN YOUR OCCUPATION?NO DATE ASKED : 11/06/2020 ALCOHOL USE: NO. ALCOHOL SCREENING DID YOU HAVE A DRINK CONTAINING ALCOHOL IN THE PAST YEAR?YES HOW OFTEN DID YOU HAVE SIX OR MORE DRINKS ON ONE OCCASION IN THE PAST YEAR?NEVER (0 POINTS) HOW MANY DRINKS DID YOU HAVE ON A TYPICAL DAY WHEN YOU WERE DRINKING IN THE PAST YEAR?1 OR 2 (0 POINTS) HOW OFTEN DID YOU HAVE A DRINK CONTAINING ALCOHOL IN THE PAST YEAR?MONTHLY OR LESS (1 POINT) POINTS1 INTERPRETATIONNEGATIVE RECREATIONAL DRUG USE DRUG USE?NO CAFFEINE CAFFEINE USE?YES HOW OFTEN AND HOW MUCH? COFFEE TEMPLE [id number] QUAKER LANGUAGE LANGUAGES SPOKEN:NEW ZEALANDER EDUCATION LEVEL OF EDUCATION:FINISHED COLLEGE LEARNING BARRIERS / SPECIAL NEEDS BARRIERS TO LEARNING?NO HEARING IMPAIRED?YES VISION IMPAIRED?NO COGNITIVELY IMPAIRED?NO :HEARING AIDES BILATERAL HEARING AIDES READINESS TO LEARN?YES LEARNING PREFERENCES?YES :HANDOUTS, DEMONSTRATION/VERBAL INSTRUCTION LEARNING CAPABILITIES PRESENT?YES EMOTIONAL BARRIERS?NO SPECIAL DEVICES?NO FRAME BUILDER NEEDED?NO DOMESTIC VIOLENCE DO YOU FEEL SAFE IN YOUR ENVIRONMENT?YES OCCUPATION: RETIRED. DIET: REGULAR. MARITAL STATUS: . TODAY'S VISITNOTES 12/14/2019 PATIENT DESCRIBES PAIN :IT COMES AND GOES, SHARP FROM 0-10, WHAT LEVEL IS YOUR PAIN TODAY?4 - WAS THE PROVIDER NOTIFIED OF ANY PERTINENT INFO?YES HAS THE PATIENT BEEN EDUCATED REGARDING HIS/HER PLAN OF CARE?YES HAS THE PATIENT BEEN EDUCATED REGARDING PAIN, THE RISK FOR PAIN, THE IMPORTANCE OF EFFECTIVE PAIN MANAGEMENT, AND THE PAIN ASSESSMENT PROCESS?YES ADVANCE DIRECTIVE ADVANCE DIRECTIVE DISCUSSED WITH PATIENT:YES HCP - PATEL QUEEN (STEP DAUGHTER) & HANNAH OH (FRIEND), DOCUMENT NOT PROVIDED. HOSPITALIZATION/MAJOR DIAGNOSTIC PROCEDURE SURGERY RELATED CERVICAL FRACTURE ADMITTED FOR BACK PAIN 08/2020 REVIEW OF SYSTEMS CONSTITUTIONAL: ANY RECENT FEVER NO . CHILLS NO . WEIGHT CHANGE OF UNKNOWN REASONS NO . GASTROENTEROLOGY: NEW UNEXPLAINABLE CHANGES IN BOWEL CONTROL NO . CONSTIPATION NO . GENITOURINARY: ANY NEW CHANGE IN BLADDER CONTROL? NO . NEUROLOGY: NEW ONSET DIZZINESS OR NEUROLOGICAL CHANGES NOT MENTIONED NO . NEW NUMBNESS OR PAIN PATTERNS NOT MENTIONED AND PERTINENT TO TODAY'S VISIT NO . CARDIOLOGY: NEW CHEST PRESSURE NO . PATIENT DENIES NO . RESPIRATORY: UNEXPLAINABLE COUGH NO . NEW SHORTNESS OF BREATH NO . VITAL SIGNS WT 157.6 LBS, HT 62 IN, BMI 28.82 INDEX, BP 130/75 MM HG, HR 99 /MIN, RR 16 /MIN, TEMP 97.2 F, OXYGEN SAT % 97%, SAFE IN ENV? (Y/N) YES, NA INITIALS SC 10:30, REVIEWED BY: Lanny NELSON RN. EXAMINATION GENERAL EXAMINATION: GENERALNO ACUTE DISTRESS, WELL NOURISHED AND HYDRATED. PSYCHAPPROPRIATE MOOD AND AFFECT . LUNGS:CLEAR TO AUSCULTATION BILATERALLY, NO WHEEZES, RHONCHI, RALES. HEART:NO MURMURS, REGULAR RATE AND RHYTHM. BACK:PATIENT DOES ENDORSE INCREASED PAIN WITH FACET LOADING OF THE THORACIC SPINE . ASSESSMENTS SPONDYLOSIS OF THORACIC REGION WITHOUT MYELOPATHY OR RADICULOPATHY - M47.814 (PRIMARY) TREATMENT SPONDYLOSIS OF THORACIC REGION WITHOUT MYELOPATHY OR RADICULOPATHY NOTES: 75-YEAR-OLD FEMALE IN FOR CHRONIC PAIN FOLLOW-UP. GIVEN PRESENTING SYMPTOMS AND RESULTS OF PHYSICAL EXAMINATION RECOMMENDED LEFT THERAPEUTIC THORACIC FACET BLOCK T8-T9 T10-T11 WITH POST PROCEDURAL FOLLOW-UP. PATIENT HAS EXPRESSED HER STANDING OF AND WAS IN AGREEMENT WITH TREATMENT PLAN. GIVEN TIME TO ASK QUESTIONS AND EXPRESS CONCERNS. OTHERS NOTES: FACET JOINT INJECTION MATERIAL WAS PRINTED AND GIVEN TO PATIENT. PRE-PROCEDURE INSTRUCTIONS PROVDIDED AND REVIEWED WITH PATIENT. [email or web address] REQUEST FOR XARELTO SENT TO DR RAE. 11/06/2020 Mary NELSON RN. PROCEDURE CODES FA211 ESTABILISHED PATIENT [facility] FACILITY CHARGE DISPOSITION & COMMUNICATION FOLLOW UP POSTPROCEDURE (REASON: LEFT THERAPEUTIC THORACIC FACET BLOCK T8-T9, T10-T11) ELECTRONICALLY SIGNED BY KEIR YEUNG ON 11/07/2020 AT 09:30 AM EDT DISCLAIMER : THIS IS A VISIT SUMMARY EXTRACTED FROM THE [employer] CHART. IT IS NOT A COPY OF THE [employer] PROGRESS NOTE. QING
--- NOTE | 2020-11-08 07:14 | ECWPNPC ---
PATIENT NAME: SANTOSH ARNDT : 1945 GENDER: FEMALE VISIT DATE: 11/06/2020 DISCHARGE DATE: 11/06/20 1111 VISIT LOCKED DATE TIME: PHYSICIAN: BAN GREENFIELD RESOURCE: BAN GREENFIELD REASON FOR APPOINTMENT 1. BACK PAIN HISTORY OF PRESENT ILLNESS GENERAL: - 75-YEAR-OLD FEMALE IN FOR CHRONIC PAIN FOLLOW-UP. SHE RATES HER PAIN CURRENTLY AT A 5 OUT OF 10. PATIENT STATES THE PAIN STARTS IN THE MIDDLE OF HER BACK. SHE DENIES RADICULOPATHY. FALL RISK SCREENING: SCREENING 2 FALLS WITH INJURY- WAS SEEN IN THE ER OVER THE WINTER FOR BACK PAIN . PAIN SCREENING: PATIENT HAS A COMPLAINT OF ACUTE OR CHRONIC PAIN :NO CERTAIN ACTIVITIES RAISE PAIN PAIN AVERAGES AROUND A 5 NURSING NOTE: -. PAIN CENTER INTAKE QUESTIONS: DO YOU HAVE A HISTORY OF MRSA? :NO DO YOU TAKE A BLOOD THINNERS? :YES XARELTO- FACTOR 5 LYDEN DO YOU HAVE ANY BLEEDING DISORDERS? :YES FACTOR 5 LYDEN ANY NEW NUMBNESS OR WEAKNESS IN YOUR LEGS OR ARMS? :NO ANY PACEMAKER,DEFIBRILLATOR, OR DORSAL COLUMN STIMULATOR? :NO DO YOU HAVE ANY RASHES OR OPEN SORES? :NO ARE YOU ALLERGIC TO IV DYE? :NO ARE YOU DIABETIC? :NO ANY NEW PROBLEMS WITH YOUR MEDICATIONS? :NO HAVE YOU RECEIVED A VACCINE IN THE PAST 30 DAYS? :YES IF SO WHAT VACCINE AND WHEN? 2ND COVID VACCINE 10/21/2020 DO YOU PLAN TO RECEIVE A VACCINE IN THE NEXT 21 DAYS? :NO DO YOU NEED ANY PRESCRIPTION? :NO DO YOU TAKE ANY IMMUNOSUPPRESSIVE MEDICATIONS? :NO DO YOU HAVE ANY KIDNEY OR LIVER DISEASE? :NO IS THERE A CHANCE YOU COULD BE ? :NO ARE YOU BREAST FEEDING? :NO CURRENT MEDICATIONS TAKING LEXAPRO 10 MG TABLET 1 TABLET ORALLY ONCE A DAY TAKING LEVOTHYROXINE SODIUM 25 MCG TABLET 1 TABLET ON AN EMPTY STOMACH IN THE MORNING ORALLY ONCE A DAY TAKING OMEPRAZOLE 20 MG CAPSULE DELAYED RELEASE 1 CAPSULE ORALLY ONCE A DAY TAKING ZYRTEC ALLERGY 10 MG TABLET 1 TABLET NEEDED ORALLY ONCE A DAY TAKING FLONASE ALLERGY RELIEF 50 MCG/ACT SUSPENSION 1 SPRAY IN EACH NOSTRIL NASALLY ONCE A DAY TAKING ADVAIR DISKUS 250-50 MCG/DOSE AEROSOL POWDER BREATH ACTIVATED 1 PUFF INHALATION TWICE A DAY NEEDED TAKING TENS THERAPY PAIN RELIEF - DEVICE TAKING ROSUVASTATIN CALCIUM 5 MG TABLET 1 TABLET ORALLY ONCE A DAY TAKING XARELTO 15 MG TABLET 1 TABLET WITH FOOD ORALLY ONCE A DAY TAKING RECLAST 5 MG/100ML SOLUTION DIRECTED INTRAVENOUS TAKING OXYCODONE HCL 5 MG CAPSULE 1 CAPSULE NEEDED ORALLY BID PRN NOT-TAKING TRAMADOL HCL 50 MG TABLET 2 TABLETS ORALLY EVERY 6 HRS NEEDED NOT-TAKING CYCLOBENZAPRINE HCL 5 MG TABLET 1 TABLET NEEDED ORALLY THREE TIMES A DAY NOT-TAKING RANITIDINE HCL 300 MG CAPSULE 1 CAPSULE ORALLY ONCE A DAY NOT-TAKING ASA 2 81 MG TABS ORAL NOT-TAKING GABAPENTIN 100 MG CAPSULE 1 CAPSULE ORALLY TWICE A DAY NOT-TAKING SIMVASTATIN 20 MG TABLET 1 TABLET IN THE EVENING ORALLY ONCE A DAY MEDICATION LIST REVIEWED AND RECONCILED WITH THE PATIENT PAST MEDICAL HISTORY CHRONIC BACK PAIN DDD HYPOTHYROIDISM ALLERGIES ELEVATED CHOLESTEROL DEPRESSION GERD OSTEOARTHRITIS ANXIETY PULMONARY EMBOLISM FACTOR 5 LIEDEN SYNDROME THORACIC SPINE FRACTURE ALLERGIES CLARITHROMYCIN: ANAPHYLAXIS - ALLERGY SPORANOX: HIVES - ALLERGY SURGICAL HISTORY HYSTERECTOMY GALLBLADDER REMOVAL BILATERAL TORN MENISCUS FUSION OF CERVIAL NECK SINUS SURGERY X3 RIGHT KNEE REPLACEMENT 02/2020 LEFT KNEE REPLACEMENT 06/2020 SOCIAL HISTORY GENERAL: TOBACCO USE ARE YOU A:NONSMOKER LATEX QUESTIONNAIRE LATEX ALLERGY : HAVE YOU EVER DEVELOPED ANY TYPE OF REACTION AFTER HANDLING LATEX PRODUCTS SUCH RUBBER GLOVES, CONDOMS, DIAPHRAGMS, BALLOONS, SOCKS, OR UNDERWEAR?NO LATEX ALLERGY : HAVE YOU EVER DEVELOPED ANY TYPE OF REACTION DURING OR AFTER DENTAL APPOINTMENT, VAGINAL/RECTAL EXAMINATION, SURGICAL PROCEDURE, OR ANY OTHER EXPOSURE?NO LATEX RISK : HAVE YOU EVER HAD ANY DIFFICULTY BREATHING OR HIVES AFTER EATING OR HANDLING ANY FRUITS, OR VEGETABLES; SUCH KIWI, BANANAS, STONE FRUITS, OR CHESTNUTSNO LATEX RISK : DO YOU HAVE A PREVIOUS PERSONAL HISTORY OF MORE THAN NINE SURGERIES, SPINA BIFIDA, OR REPEATED CATHERIZATIONS? NO LATEX RISK : ARE YOU FREQUENTLY EXPOSED TO LATEX PRODUCTS IN YOUR OCCUPATION?NO DATE ASKED : 11/06/2020 ALCOHOL USE: NO. ALCOHOL SCREENING DID YOU HAVE A DRINK CONTAINING ALCOHOL IN THE PAST YEAR?YES HOW OFTEN DID YOU HAVE SIX OR MORE DRINKS ON ONE OCCASION IN THE PAST YEAR?NEVER (0 POINTS) HOW MANY DRINKS DID YOU HAVE ON A TYPICAL DAY WHEN YOU WERE DRINKING IN THE PAST YEAR?1 OR 2 (0 POINTS) HOW OFTEN DID YOU HAVE A DRINK CONTAINING ALCOHOL IN THE PAST YEAR?MONTHLY OR LESS (1 POINT) POINTS1 INTERPRETATIONNEGATIVE RECREATIONAL DRUG USE DRUG USE?NO CAFFEINE CAFFEINE USE?YES HOW OFTEN AND HOW MUCH? COFFEE TAOIST [id number] CAODAISM LANGUAGE LANGUAGES SPOKEN:AUSTRIAN EDUCATION LEVEL OF EDUCATION:FINISHED COLLEGE LEARNING BARRIERS / SPECIAL NEEDS BARRIERS TO LEARNING?NO HEARING IMPAIRED?YES VISION IMPAIRED?NO COGNITIVELY IMPAIRED?NO :HEARING AIDES BILATERAL HEARING AIDES READINESS TO LEARN?YES LEARNING PREFERENCES?YES :HANDOUTS, DEMONSTRATION/VERBAL INSTRUCTION LEARNING CAPABILITIES PRESENT?YES EMOTIONAL BARRIERS?NO SPECIAL DEVICES?NO INSURANCE BILLER NEEDED?NO DOMESTIC VIOLENCE DO YOU FEEL SAFE IN YOUR ENVIRONMENT?YES OCCUPATION: RETIRED. DIET: REGULAR. MARITAL STATUS: . TODAY'S VISITNOTES 12/14/2019 PATIENT DESCRIBES PAIN :IT COMES AND GOES, SHARP FROM 0-10, WHAT LEVEL IS YOUR PAIN TODAY?4 - WAS THE PROVIDER NOTIFIED OF ANY PERTINENT INFO?YES HAS THE PATIENT BEEN EDUCATED REGARDING HIS/HER PLAN OF CARE?YES HAS THE PATIENT BEEN EDUCATED REGARDING PAIN, THE RISK FOR PAIN, THE IMPORTANCE OF EFFECTIVE PAIN MANAGEMENT, AND THE PAIN ASSESSMENT PROCESS?YES ADVANCE DIRECTIVE ADVANCE DIRECTIVE DISCUSSED WITH PATIENT:YES HCP - PATEL QUEEN (STEP DAUGHTER) & HANNAH OH (FRIEND), DOCUMENT NOT PROVIDED. HOSPITALIZATION/MAJOR DIAGNOSTIC PROCEDURE SURGERY RELATED CERVICAL FRACTURE ADMITTED FOR BACK PAIN 08/2020 REVIEW OF SYSTEMS CONSTITUTIONAL: ANY RECENT FEVER NO . CHILLS NO . WEIGHT CHANGE OF UNKNOWN REASONS NO . GASTROENTEROLOGY: NEW UNEXPLAINABLE CHANGES IN BOWEL CONTROL NO . CONSTIPATION NO . GENITOURINARY: ANY NEW CHANGE IN BLADDER CONTROL? NO . NEUROLOGY: NEW ONSET DIZZINESS OR NEUROLOGICAL CHANGES NOT MENTIONED NO . NEW NUMBNESS OR PAIN PATTERNS NOT MENTIONED AND PERTINENT TO TODAY'S VISIT NO . CARDIOLOGY: NEW CHEST PRESSURE NO . PATIENT DENIES NO . RESPIRATORY: UNEXPLAINABLE COUGH NO . NEW SHORTNESS OF BREATH NO . VITAL SIGNS WT 157.6 LBS, HT 62 IN, BMI 28.82 INDEX, BP 130/75 MM HG, HR 99 /MIN, RR 16 /MIN, TEMP 97.2 F, OXYGEN SAT % 97%, SAFE IN ENV? (Y/N) YES, NA INITIALS SC 10:30, REVIEWED BY: Lanny NELSON RN. EXAMINATION GENERAL EXAMINATION: GENERALNO ACUTE DISTRESS, WELL NOURISHED AND HYDRATED. PSYCHAPPROPRIATE MOOD AND AFFECT . LUNGS:CLEAR TO AUSCULTATION BILATERALLY, NO WHEEZES, RHONCHI, RALES. HEART:NO MURMURS, REGULAR RATE AND RHYTHM. BACK:PATIENT DOES ENDORSE INCREASED PAIN WITH FACET LOADING OF THE THORACIC SPINE . ASSESSMENTS SPONDYLOSIS OF THORACIC REGION WITHOUT MYELOPATHY OR RADICULOPATHY - M47.814 (PRIMARY) TREATMENT SPONDYLOSIS OF THORACIC REGION WITHOUT MYELOPATHY OR RADICULOPATHY NOTES: 75-YEAR-OLD FEMALE IN FOR CHRONIC PAIN FOLLOW-UP. GIVEN PRESENTING SYMPTOMS AND RESULTS OF PHYSICAL EXAMINATION RECOMMENDED LEFT THERAPEUTIC THORACIC FACET BLOCK T8-T9 T10-T11 WITH POST PROCEDURAL FOLLOW-UP. PATIENT HAS EXPRESSED HER STANDING OF AND WAS IN AGREEMENT WITH TREATMENT PLAN. GIVEN TIME TO ASK QUESTIONS AND EXPRESS CONCERNS. OTHERS NOTES: FACET JOINT INJECTION MATERIAL WAS PRINTED AND GIVEN TO PATIENT. PRE-PROCEDURE INSTRUCTIONS PROVDIDED AND REVIEWED WITH PATIENT. [employer] REQUEST FOR XARELTO SENT TO DR RAE. 11/06/2020 Mary NELSON RN. PROCEDURE CODES FA211 ESTABILISHED PATIENT [facility] FACILITY CHARGE DISPOSITION & COMMUNICATION FOLLOW UP POSTPROCEDURE (REASON: LEFT THERAPEUTIC THORACIC FACET BLOCK T8-T9, T10-T11) ELECTRONICALLY SIGNED BY KERI YEUNG ON 11/07/2020 AT 09:30 AM EDT DISCLAIMER : THIS IS A VISIT SUMMARY EXTRACTED FROM THE [employer] CHART. IT IS NOT A COPY OF THE [email or web address] PROGRESS NOTE. QING
== END ==
LOC: M PAIN 10:30
PROVIDERS: ATTEND Family Medicine
DX: M47.814 Spondylosis without myelopathy or radiculopathy, thoracic region (principal); G89.29 Other chronic pain; E03.9 Hypothyroidism, unspecified; K21.9 Gastro-esophageal reflux disease without esophagitis; Z86.59 Personal history of other mental and behavioral disorders; Z86.711 Personal history of pulmonary embolism; Z96.653 Presence of artificial knee joint, bilateral; Z88.1 Allergy status to other antibiotic agents; Z88.8 Allergy status to other drugs, medicaments and biological substances; Z79.01 Long term (current) use of anticoagulants; Z79.899 Other long term (current) drug therapy

== ENCOUNTER → 2020-11-13 | Outpatient (CLI) | payer MEDICARE, OTHER | LOC: M LABSMTC 10:11 | PROVIDERS: ATTEND Anesthesiology | DX: Z01.812 Encounter for preprocedural laboratory examination (principal); Z20.822 Contact with and (suspected) exposure to COVID-19 ==

== ENCOUNTER → 2020-11-18 | Outpatient (CLI) | payer MEDICARE, OTHER ==
[~2020-11-18] MED LIST changes: +BUPIVACAINE HCL 0.25% 30ML VIAL As Ordered ONE; +ISOVUE-M 300 61% 15ML VIAL As Ordered ONE; +LIDOCAINE 1% SDV 30ML VIAL As Ordered ONE; +TRIAMCINOLONE ACETONIDE SUSP 40 MG/ML VIAL (J3301) As Ordered ONE; +diazePAM 5MG TABLET As Ordered ONE
--- NOTE | 2020-11-18 12:49 | REP ---
INDICATION: PAIN. COMPARISON: None. TECHNIQUE: C-arm view lower thoracic spine performed. FINDINGS: Two needles are seen along the lower lumbar spine and a small amount of contrast is injected. IMPRESSION: 32 seconds of fluoroscopy time is utilized. <Electronically signed by Sonu Diaz > 11/18/20 [id number]
--- NOTE | 2020-11-19 00:24 | ECWPNPC ---
PATIENT NAME: SANTOSH ARNDT : 1945 GENDER: FEMALE VISIT DATE: 11/18/2020 DISCHARGE DATE: 11/18/20 1252 VISIT LOCKED DATE TIME: PHYSICIAN: SUSANNA FRANCO MD RESOURCE: SUSANNA FRANCO MD REASON FOR APPOINTMENT 1. LEFT THERAPEUTIC THORACIC FACET BLOCK T8-T9, T10-T11 HISTORY OF PRESENT ILLNESS GENERAL: -. FALL RISK SCREENING: SCREENING YES 2 FALLS WITH INJURY/EVAL BY ED. PAIN SCREENING: PATIENT HAS A COMPLAINT OF ACUTE OR CHRONIC PAIN :YES LOCATION OF PAIN:UPPER BACK LEFT UPPER-MID BACK INTENSITY OF PAIN (SCALE OF 1 TO 10):5 WHAT DOES YOUR PAIN FEEL LIKE:INTERMITTENT, SHARP, STABBING DURATION:INTERMITTENT WORSE WITH ACTIVITY PAIN IS INCREASED BY:ACTIVITIES PAIN IS DECREASED BY:USE OF PAIN MEDICATIONS, OTHERS TENS, HEAT NURSING NOTE: -. PAIN CENTER INTAKE QUESTIONS: DO YOU HAVE A HISTORY OF MRSA? :NO DO YOU TAKE A BLOOD THINNERS? :YES LAST DOSE OF XARELTO 11/15/20. DO YOU HAVE ANY BLEEDING DISORDERS? :YES FACTOR V LEIDEN ANY NEW NUMBNESS OR WEAKNESS IN YOUR LEGS OR ARMS? :NO ANY PACEMAKER,DEFIBRILLATOR, OR DORSAL COLUMN STIMULATOR? :NO DO YOU HAVE ANY RASHES OR OPEN SORES? :NO ARE YOU ALLERGIC TO IV DYE? :NO ARE YOU DIABETIC? :NO ANY NEW PROBLEMS WITH YOUR MEDICATIONS? :NO HAVE YOU RECEIVED A VACCINE IN THE PAST 30 DAYS? :YES IF SO WHAT VACCINE AND WHEN? 2ND COVID VACCINE 10/22/20. DO YOU PLAN TO RECEIVE A VACCINE IN THE NEXT 21 DAYS? :NO DO YOU TAKE ANY IMMUNOSUPPRESSIVE MEDICATIONS? :NO ANY HISTORY OF SEIZURES? :NO ANY HISTORY OF CARDIAC ISSUES OR EVENTS? :NO DO YOU HAVE ANY KIDNEY OR LIVER DISEASE? :NO DO YOU HAVE SLEEP APNEA? :NO ANY RECENT HEAD INJURY? :NO DO YOU HAVE ANY NEW INFECTIONS? :NO IS THERE A CHANCE YOU COULD BE ? :NO ARE YOU BREAST FEEDING? :NO WHEN DID YOU LAST EAT? : 11/18 1999 WHEN DID YOU LAST DRINK? : -11/18 0700 WHAT DID YOU LAST DRINK? : -WATER NAME OF PERSON DRIVING YOU HOME? : -TAXI DO YOU HAVE ANY OTHER QUESTIONS OR CONCERNS? : - CURRENT MEDICATIONS TAKING LEXAPRO 10 MG TABLET 1 TABLET ORALLY ONCE A DAY TAKING LEVOTHYROXINE SODIUM 25 MCG TABLET 1 TABLET ON AN EMPTY STOMACH IN THE MORNING ORALLY ONCE A DAY TAKING OMEPRAZOLE 20 MG CAPSULE DELAYED RELEASE 1 CAPSULE ORALLY ONCE A DAY TAKING ZYRTEC ALLERGY 10 MG TABLET 1 TABLET NEEDED ORALLY ONCE A DAY TAKING FLONASE ALLERGY RELIEF 50 MCG/ACT SUSPENSION 1 SPRAY IN EACH NOSTRIL NASALLY ONCE A DAY TAKING ADVAIR DISKUS 250-50 MCG/DOSE AEROSOL POWDER BREATH ACTIVATED 1 PUFF INHALATION ONCE A DAY NEEDED TAKING TENS THERAPY PAIN RELIEF - DEVICE TAKING ROSUVASTATIN CALCIUM 5 MG TABLET 1 TABLET ORALLY ONCE A DAY TAKING XARELTO 15 MG TABLET 1 TABLET WITH FOOD ORALLY ONCE A DAY, NOTES: LAST DOSE 11/15/20 TAKING RECLAST 5 MG/100ML SOLUTION DIRECTED INTRAVENOUS , NOTES: 01/2020 TAKING OXYCODONE HCL 5 MG CAPSULE 1 CAPSULE NEEDED ORALLY BID PRN, NOTES: 11/17 1500 TAKING ACETAMINOPHEN EXTRA STRENGTH 500 MG TABLET 1 TABLET NEEDED ORALLY EVERY 6 HRS NOT-TAKING TRAMADOL HCL 50 MG TABLET 2 TABLETS ORALLY EVERY 6 HRS NEEDED NOT-TAKING CYCLOBENZAPRINE HCL 5 MG TABLET 1 TABLET NEEDED ORALLY THREE TIMES A DAY NOT-TAKING RANITIDINE HCL 300 MG CAPSULE 1 CAPSULE ORALLY ONCE A DAY NOT-TAKING ASA 2 81 MG TABS ORAL NOT-TAKING GABAPENTIN 100 MG CAPSULE 1 CAPSULE ORALLY TWICE A DAY NOT-TAKING SIMVASTATIN 20 MG TABLET 1 TABLET IN THE EVENING ORALLY ONCE A DAY MEDICATION LIST REVIEWED AND RECONCILED WITH THE PATIENT PAST MEDICAL HISTORY CHRONIC BACK PAIN DDD HYPOTHYROIDISM ALLERGIES ELEVATED CHOLESTEROL DEPRESSION GERD OSTEOARTHRITIS ANXIETY PULMONARY EMBOLISM FACTOR 5 LIEDEN SYNDROME THORACIC SPINE FRACTURE ALLERGIES CLARITHROMYCIN: ANAPHYLAXIS - ALLERGY SPORANOX: HIVES - ALLERGY TIZANIDINE HCL: CONFUSION - SIDE EFFECTS SURGICAL HISTORY HYSTERECTOMY GALLBLADDER REMOVAL BILATERAL TORN MENISCUS FUSION OF CERVIAL NECK SINUS SURGERY X3 RIGHT KNEE REPLACEMENT 02/2020 LEFT KNEE REPLACEMENT 06/2020 FAMILY HISTORY FATHER: MOTHER: DAUGHTER(S): , DIAGNOSED WITH OTHER MALIGNANT NEOPLASM OF UNSPECIFIED SITE 1DAUGHTER(S) . DAUGHTER PASSED FROM CANCER OF THE BILE DUCTS 2 YRS AGO. PATIENT HAS KIDNEY STONES AND PATIENT IS ADOPTED. SOCIAL HISTORY GENERAL: TOBACCO USE ARE YOU A:NONSMOKER LATEX QUESTIONNAIRE LATEX ALLERGY : HAVE YOU EVER DEVELOPED ANY TYPE OF REACTION AFTER HANDLING LATEX PRODUCTS SUCH RUBBER GLOVES, CONDOMS, DIAPHRAGMS, BALLOONS, SOCKS, OR UNDERWEAR?NO LATEX ALLERGY : HAVE YOU EVER DEVELOPED ANY TYPE OF REACTION DURING OR AFTER DENTAL APPOINTMENT, VAGINAL/RECTAL EXAMINATION, SURGICAL PROCEDURE, OR ANY OTHER EXPOSURE?NO LATEX RISK : HAVE YOU EVER HAD ANY DIFFICULTY BREATHING OR HIVES AFTER EATING OR HANDLING ANY FRUITS, OR VEGETABLES; SUCH KIWI, BANANAS, STONE FRUITS, OR CHESTNUTSNO LATEX RISK : DO YOU HAVE A PREVIOUS PERSONAL HISTORY OF MORE THAN NINE SURGERIES, SPINA BIFIDA, OR REPEATED CATHERIZATIONS? NO LATEX RISK : ARE YOU FREQUENTLY EXPOSED TO LATEX PRODUCTS IN YOUR OCCUPATION?NO DATE ASKED : 11/17/2020 ALCOHOL USE: NO. ALCOHOL SCREENING DID YOU HAVE A DRINK CONTAINING ALCOHOL IN THE PAST YEAR?YES HOW OFTEN DID YOU HAVE SIX OR MORE DRINKS ON ONE OCCASION IN THE PAST YEAR?NEVER (0 POINTS) HOW MANY DRINKS DID YOU HAVE ON A TYPICAL DAY WHEN YOU WERE DRINKING IN THE PAST YEAR?1 OR 2 (0 POINTS) HOW OFTEN DID YOU HAVE A DRINK CONTAINING ALCOHOL IN THE PAST YEAR?MONTHLY OR LESS (1 POINT) POINTS1 INTERPRETATIONNEGATIVE RECREATIONAL DRUG USE DRUG USE?NO CAFFEINE CAFFEINE USE?YES HOW OFTEN AND HOW MUCH? COFFEE CAODAISM [id number] MU-ISM LANGUAGE LANGUAGES SPOKEN:MALTESE EDUCATION LEVEL OF EDUCATION:FINISHED COLLEGE LEARNING BARRIERS / SPECIAL NEEDS BARRIERS TO LEARNING?NO HEARING IMPAIRED?YES :HEARING AIDES BILATERAL HEARING AIDES VISION IMPAIRED?NO COGNITIVELY IMPAIRED?NO READINESS TO LEARN?YES LEARNING PREFERENCES?YES :HANDOUTS, DEMONSTRATION/VERBAL INSTRUCTION LEARNING CAPABILITIES PRESENT?YES EMOTIONAL BARRIERS?NO SPECIAL DEVICES?NO WINDOW AND DOOR INSTALLER NEEDED?NO DOMESTIC VIOLENCE DO YOU FEEL SAFE IN YOUR ENVIRONMENT?YES OCCUPATION: RETIRED. DIET: REGULAR. MARITAL STATUS: . TODAY'S VISITNOTES 12/14/2019 PATIENT DESCRIBES PAIN :IT COMES AND GOES, SHARP FROM 0-10, WHAT LEVEL IS YOUR PAIN TODAY?4 - WAS THE PROVIDER NOTIFIED OF ANY PERTINENT INFO?YES HAS THE PATIENT BEEN EDUCATED REGARDING HIS/HER PLAN OF CARE?YES HAS THE PATIENT BEEN EDUCATED REGARDING PAIN, THE RISK FOR PAIN, THE IMPORTANCE OF EFFECTIVE PAIN MANAGEMENT, AND THE PAIN ASSESSMENT PROCESS?YES ADVANCE DIRECTIVE ADVANCE DIRECTIVE DISCUSSED WITH PATIENT:YES HCP - PATEL QUEEN (STEP DAUGHTER) & HANNAH OH (FRIEND), DOCUMENT NOT PROVIDED. HOSPITALIZATION/MAJOR DIAGNOSTIC PROCEDURE SURGERY RELATED CERVICAL FRACTURE ADMITTED FOR BACK PAIN 08/2020 VITAL SIGNS WT 164.2 LBS, HT 62 IN, BMI 30.03 INDEX, BP 149/79 MM HG, HR 85 /MIN, RR 18 /MIN, TEMP 96.2 F, OXYGEN SAT % 95%, SAFE IN ENV? (Y/N) YES, NA INITIALS AW 1052, REVIEWED BY: SUNIL RN. EXAMINATION GENERAL: A HISTORY AND PHYSICAL EXAM ON THE PATIENT WAS DONE ON 11/06/2020 (DATE OF ORIGINAL ASSESSMENT) IN PREPARATION OF SURGERY/PROCEDURE. I HAVE NOW REASSESSED THIS PATIENT'S HEALTH STATUS AND PERFORMED AN UPDATED EXAM TODAY. ALL CHANGES IN THE PATIENT'S HISTORY, PHYSICAL EXAM, PRE-EXISTING CONDITONS, AND INDICATIONS/CONTRAINDICATIONS TO THE PLANNED PROCEDURE AND ANESTHESIA ARE DOCUMENTED AND EVALUATED BELOW. I ATTEST TO THE ADEQUACY AND APPROPRIATENESS OF MY ASSESSMENT, AND CONFIRM THE NECESSITY FOR THE PLANNED PROCEDURE. THE PATIENT IS ALERT, ORIENTED TIMES THREE AND COOPERATIVE. LUNGS ARE CLEAR TO AUSCULTATION. HEART SHOWS REGULAR RHYTHM, NO MURMURS AND NO GALLOPS. ASSESSMENTS SPONDYLOSIS OF THORACIC REGION WITHOUT MYELOPATHY OR RADICULOPATHY - M47.814 (PRIMARY) TREATMENT SPONDYLOSIS OF THORACIC REGION WITHOUT MYELOPATHY OR RADICULOPATHY [facility] FACET BLOCK (PAIN)[id number] MEDICATION: VALIUM TAB 5MG ORALLY (DIAZEPAM)LEIA GARCÍA 11/18/2020 11:13:47 AM > VERIFIED WARD REYES 11/18/2020 11:17:10 AM > VALIUM 5MG PO ADMINISTERED SALINE LEIA HERNÁNDEZ 11/18/2020 11:14:41 AM > 22G IV ACCESS OBTAINED IN LAC WITH FIRST ATTEMPT. PATIENT TOLERATED WELL. TBRADLEYRN COMPLETION OF PROCEDURAL VISIT WHEN MEETS CRITERIA NOTES: PAT COMPLETED 11/17/20 M ERIC GEORGE. PROCEDURES PAIN NURSING RECORD PROCEDURE IN ROOM 1200, PHYSICIAN IN ROOM 1216, START 1222, FINISH 1224, PHYSICIAN OUT OF ROOM 1225, OUT OF ROOM 1231, ECG NORMAL SINUS, PATIENT SHIELDED YES, SAFETY STRAP YES, PREP CHLOROPREP Ann REYES RN, DRESSING TEGADERM DR. FRANCO LOC: 1. ALERT, ORIENTED RESP: 1. REGULAR, NO DYSPNEA COLOR: 1. PINK SKIN: 1. WARM, DRY POSITION: 1. PRONE VITALS: WARD REYES 11/18/2020 12:10:22 PM > 153/69 HR 79 16 99% R/A , WARD REYES 11/18/2020 12:25:21 PM > 164/77 HR 83 16 98% R/A ERIC MARY 11/18/2020 12:45:53 PM > 149/75 HR 86 16 96% R/A D/C V/S COMPLETION OF PROCEDURE APPOINTMENT: POST PAIN 0, DRESSING SITE DRY AND INTACT, IV DISCONTINUED, SITE CLEAR, CATHETER INTACT, GAIT STEADY, TEACHING COMPLETED, PATIENT ACKNOWLEDGES UNDERSTANDING YES, PROCEDURE APPOINTMENT COMPLETED AT 1248 PN THORACIC FACET BLOCK THERAPEUTIC PRE PROCEDURE DIAGNOSIS THORACIC SPONDYLOSIS POST PROCEDURE DIAGNOSIS THORACIC SPONDYLOSIS PROCEDURE LEFT T8-T9 AND LEFT T10-T11 THERAPEUTIC THORACIC FACET BLOCK SURGEON DR. SUSANNA FRANCO RIVET BUCKER NONE ANESTHESIA LOCAL PRE PROCEDURE NOTE THE PATIENT WITH HISTORY OF CHRONIC THORACIC PAIN. I EVALUATED THE PATIENT AND REVIEWED THE CHART. I WENT OVER THE RISKS, ALTERNATIVES, AND BENEFITS ASSOCIATED WITH THIS PROCEDURE. THE PATIENT WOULD LIKE TO PROCEED AND GAVE CONSENT TO PERFORM THE PROCEDURE. THE PATIENT DENIES UNEXPLAINABLE WEIGHT LOSS, FEVER, CHILLS, OR NEW CHANGES IN URINARY OR BOWEL CONTROL. THE PATIENT IS COVID-19 NEGATIVE DESCRIPTION OF PROCEDURE THE PATIENT WAS BROUGHT TO THE PROCEDURE ROOM AND PLACED IN THE PRONE POSITION. THE THORACIC AREA WAS CLEANED WITH CHLORAPREP SOLUTION AND DRAPED ASEPTICALLY. THE PROCEDURE WAS DONE UNDER STERILE CONDITIONS. A TIMEOUT WAS PERFORMED WHERE THE CONSENTED SITE WAS VERIFIED WITH EVERYONE IN THE ROOM. UNDER FLUOROSCOPIC GUIDANCE, THE TARGET POINT WAS SELECTED AT THE LEFT T8-T9 AND LEFT T10-T11 THORACIC FACET. TARGET POINT WAS SELECTED AFTER LATERAL ROTATION AND TILT OF THE MAGNIFIER OF THE C-ARM. I CONFIRMED AGAIN THE SITE OF TARGET. LIDOCAINE 0.5% WAS USED TO NUMB THE SKIN AND THE SUBCUTANEOUS TISSUE BELOW IT. SPINAL NEEDLES, 22-GAUGE, WERE ADVANCED UNDER FLUOROSCOPIC GUIDANCE AND FOLLOWING PATIENT FEEDBACK UNTIL THE TARGETS WERE TOUCHED. THE POSITION OF THE NEEDLES WAS VERIFIED WITH AP AND LATERAL VIEWS. AFTER PROPER POSITION OF THE NEEDLES WAS ACHIEVED, ISOVUE-M DYE 30%, 0.1 ML, WAS INJECTED SHOWING ADEQUATE SPREAD OF THE DYE. KENALOG 20 MG WAS INJECTED AT EACH SITE. THEN, A SOLUTION OF 5 ML OF BUPIVACAINE 0.125% WAS USED TO FLUSH EACH SITE. THE MEDICATIONS WERE VERIFIED WITH THE NURSE. THERE WAS NO EVIDENCE OF BLOOD, PARESTHESIA OR CEREBROSPINAL FLUID DURING THE PROCEDURE. THE PATIENT WAS SENT TO THE RECOVERY ROOM. THE PATIENT WAS MOVING THE EXTREMITIES AND DOING WELL. THERE WERE NO COMPLICATION DURING THE PROCEDURE. EBL LESS THAN 5 ML. FLUOROSCOPY TIME WAS 31 SECONDS. POST PROCEDURE NOTE PATIENT WAS SENT DOWN FOR STAT CHEST X-RAY PA AND LATERAL VIEWS ON INSPIRATION AND EXPIRATION. THE PROCEDURE DONE WAS DISCUSSED WITH THE PATIENT. THE PATIENT WILL BE SEEN IN A FOLLOW UP IN THE NEXT FEW WEEKS. I AM LOOKING FOR LONG LASTING PAIN RELIEF FOR THE PATIENT WITH THIS INTERVENTION. INSTRUCTIONS WERE GIVEN, QUESTIONS WERE ANSWERED, AND THE PATIENT EXPRESSED UNDERSTANDING AND AGREES WITH THE PLAN. I, TAVON WONG, DOCUMENTED THE ABOVE INFORMATION ACTING A SCRIBE FOR DR. FRANCO. I HAVE REVIEWED THE ABOVE DOCUMENT, WRITTEN BY TAVON WONG, SEWING MACHINES SALESPERSON, AND I VERIFY THAT IT IS ACCURATE PROCEDURE CODES 18569 INJ PARAVERT F JNT C/T 1 LEV, MODIFIERS: [place] [id number] INJ PARAVERT F JNT C/T 2 LEV, MODIFIERS: LT DISPOSITION & COMMUNICATION FOLLOW UP FOLLOW UP WITH CRYSTALLOGRAPHY TEACHER (REASON: POST LEFT THERAPEUTIC THORACIC FACET BLOCK T8-T9, T10-T11) ELECTRONICALLY SIGNED BY SUSANNA FRANCO MD, MD ON 11/18/2020 AT 03:38 PM EDT DISCLAIMER : THIS IS A VISIT SUMMARY EXTRACTED FROM THE [employer] CHART. IT IS NOT A COPY OF THE [employer] PROGRESS NOTE. QING
== END ==
LOC: M PAIN 11:00
PROVIDERS: ATTEND Anesthesiology
DX: M47.814 Spondylosis without myelopathy or radiculopathy, thoracic region (principal); E03.9 Hypothyroidism, unspecified; K21.9 Gastro-esophageal reflux disease without esophagitis; Z86.59 Personal history of other mental and behavioral disorders; Z86.711 Personal history of pulmonary embolism; Z96.653 Presence of artificial knee joint, bilateral; Z88.1 Allergy status to other antibiotic agents; Z88.8 Allergy status to other drugs, medicaments and biological substances; Z79.01 Long term (current) use of anticoagulants; Z79.899 Other long term (current) drug therapy
CPT/HCPCS: 64490; 64491; J3301; Q9967

== ENCOUNTER → 2020-12-03 | Outpatient (CLI) | payer MEDICARE, OTHER ==
[~2020-12-03] MED LIST changes: -BUPIVACAINE HCL 0.25% 30ML VIAL As Ordered ONE; -ISOVUE-M 300 61% 15ML VIAL As Ordered ONE; -LIDOCAINE 1% SDV 30ML VIAL As Ordered ONE; -TRIAMCINOLONE ACETONIDE SUSP 40 MG/ML VIAL (J3301) As Ordered ONE; -diazePAM 5MG TABLET As Ordered ONE
--- NOTE | 2020-12-04 23:14 | ECWPNPC ---
PATIENT NAME: SANTOSH ARNDT : 1945 GENDER: FEMALE VISIT DATE: 12/03/2020 DISCHARGE DATE: 12/03/20 1101 VISIT LOCKED DATE TIME: PHYSICIAN: BAN GREENFIELD RESOURCE: BAN GREENFIELD REASON FOR APPOINTMENT 1. POST LEFT THERAPEUTIC THORACIC FACET BLOCK T8-T9, T10-T11 HISTORY OF PRESENT ILLNESS DEPRESSION SCREENING: PHQ-2 (2015 EDITION) LITTLE INTEREST OR PLEASURE IN DOING THINGS?NOT AT ALL FEELING DOWN, DEPRESSED, OR HOPELESS?NOT AT ALL TOTAL SCORE0 75-YEAR-OLD FEMALE IN FOR POST THERAPEUTIC THORACIC FACETBLOCK FOLLOW-UP. PATIENT FEELS THE PROCEDURE WAS HELPFUL RATING HER PAIN PREPROCEDURE AT A 5 OUT OF 10 AND POSTPROCEDURE AT A 0 OUT OF 10X2 WEEKS. PATIENT DOES ADMIT THAT HER PAIN STARTED TO COME BACK AFTER THE 2 WEEKS BUT SHE FEELS THE PROCEDURE CONTINUES TO HELP HER EVIDENCED BY WHEN SHE EXPERIENCES INCREASED PAIN IT DOES NOT LAST LONG IT DID PRIOR TO THE PROCEDURE. SHE RATES HER PAIN CURRENTLY AT A 2 OUT OF 10 AND DESCRIBES IT SHARP. GENERAL: -. FALL RISK SCREENING: SCREENING 2 TIME THIS YEAR EARLIER IN THE YEAR DID GO TO THE ER FOR 5 DAYS, IT WAS BECAUSE SHE HAD A REACTION TO A MEDICATION, WHICH SHE STATE SHE IS NO LONGER ON . PAIN SCREENING: PATIENT HAS A COMPLAINT OF ACUTE OR CHRONIC PAIN :YES LOCATION OF PAIN:UPPER BACK, MID BACK INTENSITY OF PAIN (SCALE OF 1 TO 10):2 WHAT DOES YOUR PAIN FEEL LIKE:SHARP DURATION:CONTINOUS, CONSTANT PAIN IS INCREASED BY:ACTIVITIES PAIN IS DECREASED BY:OTHERS LAYING DOWN NURSING NOTE: -. PAIN CENTER INTAKE QUESTIONS: DO YOU HAVE A HISTORY OF MRSA? :NO DO YOU TAKE A BLOOD THINNERS? :YES XARELTO DO YOU HAVE ANY BLEEDING DISORDERS? :YES 12/02 FACTOR V LEIDEN ANY NEW NUMBNESS OR WEAKNESS IN YOUR LEGS OR ARMS? :NO ANY PACEMAKER,DEFIBRILLATOR, OR DORSAL COLUMN STIMULATOR? :NO DO YOU HAVE ANY RASHES OR OPEN SORES? :NO ARE YOU ALLERGIC TO IV DYE? :NO ARE YOU DIABETIC? :NO ANY NEW PROBLEMS WITH YOUR MEDICATIONS? :NO HAVE YOU RECEIVED A VACCINE IN THE PAST 30 DAYS? :NO DO YOU PLAN TO RECEIVE A VACCINE IN THE NEXT 21 DAYS? :NO DO YOU NEED ANY PRESCRIPTION? :NO DO YOU TAKE ANY IMMUNOSUPPRESSIVE MEDICATIONS? :NO DO YOU HAVE ANY KIDNEY OR LIVER DISEASE? :NO IS THERE A CHANCE YOU COULD BE ? :NO ARE YOU BREAST FEEDING? :NO CURRENT MEDICATIONS TAKING LEXAPRO 10 MG TABLET 1 TABLET ORALLY ONCE A DAY TAKING LEVOTHYROXINE SODIUM 25 MCG TABLET 1 TABLET ON AN EMPTY STOMACH IN THE MORNING ORALLY ONCE A DAY TAKING OMEPRAZOLE 20 MG CAPSULE DELAYED RELEASE 1 CAPSULE ORALLY ONCE A DAY TAKING ZYRTEC ALLERGY 10 MG TABLET 1 TABLET NEEDED ORALLY ONCE A DAY TAKING FLONASE ALLERGY RELIEF 50 MCG/ACT SUSPENSION 1 SPRAY IN EACH NOSTRIL NASALLY ONCE A DAY TAKING ADVAIR DISKUS 250-50 MCG/DOSE AEROSOL POWDER BREATH ACTIVATED 1 PUFF INHALATION ONCE A DAY NEEDED TAKING TENS THERAPY PAIN RELIEF - DEVICE TAKING ROSUVASTATIN CALCIUM 5 MG TABLET 1 TABLET ORALLY ONCE A DAY TAKING XARELTO 15 MG TABLET 1 TABLET WITH FOOD ORALLY ONCE A DAY, NOTES: LAST DOSE 11/15/20 TAKING RECLAST 5 MG/100ML SOLUTION DIRECTED INTRAVENOUS TAKING OXYCODONE HCL 5 MG CAPSULE 1 CAPSULE NEEDED ORALLY BID PRN TAKING ACETAMINOPHEN EXTRA STRENGTH 500 MG TABLET 1 TABLET NEEDED ORALLY EVERY 6 HRS NOT-TAKING TRAMADOL HCL 50 MG TABLET 2 TABLETS ORALLY EVERY 6 HRS NEEDED NOT-TAKING CYCLOBENZAPRINE HCL 5 MG TABLET 1 TABLET NEEDED ORALLY THREE TIMES A DAY NOT-TAKING RANITIDINE HCL 300 MG CAPSULE 1 CAPSULE ORALLY ONCE A DAY NOT-TAKING ASA 2 81 MG TABS ORAL NOT-TAKING GABAPENTIN 100 MG CAPSULE 1 CAPSULE ORALLY TWICE A DAY NOT-TAKING SIMVASTATIN 20 MG TABLET 1 TABLET IN THE EVENING ORALLY ONCE A DAY MEDICATION LIST REVIEWED AND RECONCILED WITH THE PATIENT PAST MEDICAL HISTORY CHRONIC BACK PAIN DDD HYPOTHYROIDISM ALLERGIES ELEVATED CHOLESTEROL DEPRESSION GERD OSTEOARTHRITIS ANXIETY PULMONARY EMBOLISM FACTOR 5 LIEDEN SYNDROME THORACIC SPINE FRACTURE ALLERGIES CLARITHROMYCIN: ANAPHYLAXIS - ALLERGY SPORANOX: HIVES - ALLERGY TIZANIDINE HCL: CONFUSION - SIDE EFFECTS SURGICAL HISTORY HYSTERECTOMY GALLBLADDER REMOVAL BILATERAL TORN MENISCUS FUSION OF CERVIAL NECK SINUS SURGERY X3 RIGHT KNEE REPLACEMENT 02/2020 LEFT KNEE REPLACEMENT 06/2020 SOCIAL HISTORY GENERAL: TOBACCO USE ARE YOU A:NONSMOKER LATEX QUESTIONNAIRE LATEX ALLERGY : HAVE YOU EVER DEVELOPED ANY TYPE OF REACTION AFTER HANDLING LATEX PRODUCTS SUCH RUBBER GLOVES, CONDOMS, DIAPHRAGMS, BALLOONS, SOCKS, OR UNDERWEAR?NO LATEX ALLERGY : HAVE YOU EVER DEVELOPED ANY TYPE OF REACTION DURING OR AFTER DENTAL APPOINTMENT, VAGINAL/RECTAL EXAMINATION, SURGICAL PROCEDURE, OR ANY OTHER EXPOSURE?NO LATEX RISK : HAVE YOU EVER HAD ANY DIFFICULTY BREATHING OR HIVES AFTER EATING OR HANDLING ANY FRUITS, OR VEGETABLES; SUCH KIWI, BANANAS, STONE FRUITS, OR CHESTNUTSNO LATEX RISK : DO YOU HAVE A PREVIOUS PERSONAL HISTORY OF MORE THAN NINE SURGERIES, SPINA BIFIDA, OR REPEATED CATHERIZATIONS? NO LATEX RISK : ARE YOU FREQUENTLY EXPOSED TO LATEX PRODUCTS IN YOUR OCCUPATION?NO DATE ASKED : 12/03/2020 ALCOHOL USE: NO. ALCOHOL SCREENING DID YOU HAVE A DRINK CONTAINING ALCOHOL IN THE PAST YEAR?YES HOW OFTEN DID YOU HAVE SIX OR MORE DRINKS ON ONE OCCASION IN THE PAST YEAR?NEVER (0 POINTS) HOW MANY DRINKS DID YOU HAVE ON A TYPICAL DAY WHEN YOU WERE DRINKING IN THE PAST YEAR?1 OR 2 (0 POINTS) HOW OFTEN DID YOU HAVE A DRINK CONTAINING ALCOHOL IN THE PAST YEAR?MONTHLY OR LESS (1 POINT) POINTS1 INTERPRETATIONNEGATIVE RECREATIONAL DRUG USE DRUG USE?NO CAFFEINE CAFFEINE USE?YES HOW OFTEN AND HOW MUCH? COFFEE MORMON [id number] ANABAPTISM LANGUAGE LANGUAGES SPOKEN:ESTONIAN EDUCATION LEVEL OF EDUCATION:FINISHED COLLEGE LEARNING BARRIERS / SPECIAL NEEDS BARRIERS TO LEARNING?NO HEARING IMPAIRED?YES :HEARING AIDES BILATERAL HEARING AIDES VISION IMPAIRED?NO COGNITIVELY IMPAIRED?NO READINESS TO LEARN?YES LEARNING PREFERENCES?YES :HANDOUTS, DEMONSTRATION/VERBAL INSTRUCTION LEARNING CAPABILITIES PRESENT?YES EMOTIONAL BARRIERS?NO SPECIAL DEVICES?NO COIL STRAPPER NEEDED?NO DOMESTIC VIOLENCE DO YOU FEEL SAFE IN YOUR ENVIRONMENT?YES OCCUPATION: RETIRED. DIET: REGULAR. MARITAL STATUS: . TODAY'S VISITNOTES 12/14/2019 PATIENT DESCRIBES PAIN :IT COMES AND GOES, SHARP FROM 0-10, WHAT LEVEL IS YOUR PAIN TODAY?4 - WAS THE PROVIDER NOTIFIED OF ANY PERTINENT INFO?YES HAS THE PATIENT BEEN EDUCATED REGARDING HIS/HER PLAN OF CARE?YES HAS THE PATIENT BEEN EDUCATED REGARDING PAIN, THE RISK FOR PAIN, THE IMPORTANCE OF EFFECTIVE PAIN MANAGEMENT, AND THE PAIN ASSESSMENT PROCESS?YES ADVANCE DIRECTIVE ADVANCE DIRECTIVE DISCUSSED WITH PATIENT:YES HCP - PATEL QUEEN (STEP DAUGHTER) & HANNAH OH (FRIEND), DOCUMENT NOT PROVIDED. HOSPITALIZATION/MAJOR DIAGNOSTIC PROCEDURE SURGERY RELATED CERVICAL FRACTURE ADMITTED FOR BACK PAIN 08/2020 REVIEW OF SYSTEMS CONSTITUTIONAL: ANY RECENT FEVER NO . CHILLS NO . WEIGHT CHANGE OF UNKNOWN REASONS NO . GASTROENTEROLOGY: NEW UNEXPLAINABLE CHANGES IN BOWEL CONTROL NO . CONSTIPATION NO . GENITOURINARY: ANY NEW CHANGE IN BLADDER CONTROL? NO . NEUROLOGY: NEW ONSET DIZZINESS OR NEUROLOGICAL CHANGES NOT MENTIONED NO . NEW NUMBNESS OR PAIN PATTERNS NOT MENTIONED AND PERTINENT TO TODAY'S VISIT NO . CARDIOLOGY: NEW CHEST PRESSURE NO . PATIENT DENIES NO . RESPIRATORY: UNEXPLAINABLE COUGH NO . NEW SHORTNESS OF BREATH NO . VITAL SIGNS WT 164 LBS, HT 62 IN, BMI 29.99 INDEX, BP 124/64 MM HG, HR 78 /MIN, RR 18 /MIN, TEMP 96.4 F, OXYGEN SAT % 97%, SAFE IN ENV? (Y/N) YEST.JAYMIE GONZALES. EXAMINATION GENERAL EXAMINATION: GENERALNO ACUTE DISTRESS, WELL NOURISHED AND HYDRATED. PSYCHAPPROPRIATE MOOD AND AFFECT . LUNGS:CLEAR TO AUSCULTATION BILATERALLY, NO WHEEZES, RHONCHI, RALES. HEART:NO MURMURS, REGULAR RATE AND RHYTHM. ASSESSMENTS OTHER CHRONIC PAIN - G89.29 (PRIMARY) SPONDYLOSIS OF THORACIC REGION WITHOUT MYELOPATHY OR RADICULOPATHY - M47.814, RISK: (NULL) TREATMENT OTHER CHRONIC PAIN PAIN PROCEDURE LOGDATE OF PROCEDURE1PROCEDURE:LEFT THERAPEUTIC THORACIC FACET BLOCK T8-T9,B30-C77SCASPC OF PRE SEDATEVALIUM 5MGRESULT:PRE-8/10 POST 0/10 X APPROXIMATELY 2 WEEKS. FEELS PROCEDURE CONTINUES TO HELP TODAY SPONDYLOSIS OF THORACIC REGION WITHOUT MYELOPATHY OR RADICULOPATHY NOTES: 75-YEAR-OLD FEMALE IN FOR POST LEFT THERAPEUTIC THORACIC FACET BLOCK FOLLOW-UP. GIVEN PRESENTING SYMPTOMS RECOMMEND FOLLOW-UP IN ONE MONTH. PATIENT HAS EXPRESSED UNDERSTANDING OF AND WAS IN AGREEMENT WITH TREATMENT PLAN. GIVEN TIME TO ASK QUESTIONS AND EXPRESS CONCERNS. PROCEDURE CODES FA211 ESTABILISHED PATIENT [facility] CHARGE DISPOSITION & COMMUNICATION FOLLOW UP 4 WEEKS (REASON: THORACIC PAIN ) ELECTRONICALLY SIGNED BY KREI YEUNG ON 12/04/2020 AT 08:47 AM EDT DISCLAIMER : THIS IS A VISIT SUMMARY EXTRACTED FROM THE [employer] CHART. IT IS NOT A COPY OF THE [employer] PROGRESS NOTE. QING
== END ==
LOC: M PAIN 10:45
PROVIDERS: ATTEND Family Medicine
DX: M47.814 Spondylosis without myelopathy or radiculopathy, thoracic region (principal); G89.29 Other chronic pain; E03.9 Hypothyroidism, unspecified; K21.9 Gastro-esophageal reflux disease without esophagitis; Z86.59 Personal history of other mental and behavioral disorders; Z86.711 Personal history of pulmonary embolism; Z96.653 Presence of artificial knee joint, bilateral; Z88.1 Allergy status to other antibiotic agents; Z88.8 Allergy status to other drugs, medicaments and biological substances; Z79.01 Long term (current) use of anticoagulants; Z79.899 Other long term (current) drug therapy

== ENCOUNTER → 2020-12-31 | Outpatient (CLI) | payer MEDICARE, OTHER ==
--- NOTE | 2021-01-02 03:07 | ECWPNPC ---
PATIENT NAME: SANTOSH ARNDT : 1945 GENDER: FEMALE VISIT DATE: 12/31/2020 DISCHARGE DATE: 12/31/20 1030 VISIT LOCKED DATE TIME: PHYSICIAN: BAN GREENFIELD RESOURCE: BAN GREENFIELD REASON FOR APPOINTMENT 1. THORACIC PAIN HISTORY OF PRESENT ILLNESS GENERAL: HPI 75-YEAR-OLD FEMALE IN FOR CHRONIC PAIN FOLLOW-UP SHE RATES HER PAIN CURRENTLY AT A 5 OUT OF 10 AND DESCRIBES IT SHARP. PATIENT HAS HAD THERAPEUTIC THORACIC FACET BLOCKS IN THE PAST WITH GOOD RESULTS EVIDENCED BY INCREASED FUNCTIONALITY AND DECREASED PAIN. GIVEN PATIENT'S INCREASED PAIN WE WILL DISCUSS REPEAT PROCEDURES TODAY.. -. FALL RISK SCREENING: SCREENING ONE FALL REPORTED IN THE LAST YEAR WITH INJURY. PATIENT SOUGHT IMMEDIATE MEDICAL TREATMENT.. PAIN SCREENING: PATIENT HAS A COMPLAINT OF ACUTE OR CHRONIC PAIN :YES LOCATION OF PAIN:MID BACK INTENSITY OF PAIN (SCALE OF 1 TO 10):5 WHAT DOES YOUR PAIN FEEL LIKE:CONTINOUS, SHARP DURATION:CONTINOUS, AWAKENS FROM SLEEP PAIN IS INCREASED BY:ACTIVITIES, PROLONGED STANDING PAIN IS DECREASED BY:USE OF PAIN MEDICATIONS, SITTING, OTHERS LAYING FLAT, HEAT AND TENS UNIT, VELCRO BRACE NURSING NOTE: -. PAIN CENTER INTAKE QUESTIONS: DO YOU HAVE A HISTORY OF MRSA? :NO DO YOU TAKE A BLOOD THINNERS? :YES XARELTO DO YOU HAVE ANY BLEEDING DISORDERS? :YES 12/02 FACTOR V LEIDEN ANY NEW NUMBNESS OR WEAKNESS IN YOUR LEGS OR ARMS? :NO ANY PACEMAKER,DEFIBRILLATOR, OR DORSAL COLUMN STIMULATOR? :NO DO YOU HAVE ANY RASHES OR OPEN SORES? :NO ARE YOU ALLERGIC TO IV DYE? :NO ARE YOU DIABETIC? :NO ANY NEW PROBLEMS WITH YOUR MEDICATIONS? :NO HAVE YOU RECEIVED A VACCINE IN THE PAST 30 DAYS? :NO DO YOU PLAN TO RECEIVE A VACCINE IN THE NEXT 21 DAYS? :NO DO YOU NEED ANY PRESCRIPTION? :NO DO YOU TAKE ANY IMMUNOSUPPRESSIVE MEDICATIONS? :NO DO YOU HAVE ANY KIDNEY OR LIVER DISEASE? :NO IS THERE A CHANCE YOU COULD BE ? :NO ARE YOU BREAST FEEDING? :NO CURRENT MEDICATIONS TAKING LEXAPRO 10 MG TABLET 1 TABLET ORALLY ONCE A DAY TAKING LEVOTHYROXINE SODIUM 25 MCG TABLET 1 TABLET ON AN EMPTY STOMACH IN THE MORNING ORALLY ONCE A DAY TAKING OMEPRAZOLE 20 MG CAPSULE DELAYED RELEASE 1 CAPSULE ORALLY ONCE A DAY TAKING ZYRTEC ALLERGY 10 MG TABLET 1 TABLET NEEDED ORALLY ONCE A DAY TAKING FLONASE ALLERGY RELIEF 50 MCG/ACT SUSPENSION 1 SPRAY IN EACH NOSTRIL NASALLY ONCE A DAY TAKING ADVAIR DISKUS 250-50 MCG/DOSE AEROSOL POWDER BREATH ACTIVATED 1 PUFF INHALATION ONCE A DAY NEEDED TAKING TENS THERAPY PAIN RELIEF - DEVICE TAKING ROSUVASTATIN CALCIUM 5 MG TABLET 1 TABLET ORALLY ONCE A DAY TAKING XARELTO 15 MG TABLET 1 TABLET WITH FOOD ORALLY ONCE A DAY, NOTES: LAST DOSE 11/15/20 TAKING RECLAST 5 MG/100ML SOLUTION DIRECTED INTRAVENOUS TAKING OXYCODONE HCL 5 MG CAPSULE 1 CAPSULE NEEDED ORALLY BID PRN TAKING ACETAMINOPHEN EXTRA STRENGTH 500 MG TABLET 1 TABLET NEEDED ORALLY EVERY 6 HRS NOT-TAKING TRAMADOL HCL 50 MG TABLET 2 TABLETS ORALLY EVERY 6 HRS NEEDED NOT-TAKING CYCLOBENZAPRINE HCL 5 MG TABLET 1 TABLET NEEDED ORALLY THREE TIMES A DAY NOT-TAKING RANITIDINE HCL 300 MG CAPSULE 1 CAPSULE ORALLY ONCE A DAY NOT-TAKING ASA 2 81 MG TABS ORAL NOT-TAKING GABAPENTIN 100 MG CAPSULE 1 CAPSULE ORALLY TWICE A DAY NOT-TAKING SIMVASTATIN 20 MG TABLET 1 TABLET IN THE EVENING ORALLY ONCE A DAY PAST MEDICAL HISTORY CHRONIC BACK PAIN DDD HYPOTHYROIDISM ALLERGIES ELEVATED CHOLESTEROL DEPRESSION GERD OSTEOARTHRITIS ANXIETY PULMONARY EMBOLISM FACTOR 5 LIEDEN SYNDROME THORACIC SPINE FRACTURE ALLERGIES CLARITHROMYCIN: ANAPHYLAXIS - ALLERGY SPORANOX: HIVES - ALLERGY TIZANIDINE HCL: CONFUSION - SIDE EFFECTS SOCIAL HISTORY GENERAL: TOBACCO USE ARE YOU A:NONSMOKER LATEX QUESTIONNAIRE LATEX ALLERGY : HAVE YOU EVER DEVELOPED ANY TYPE OF REACTION AFTER HANDLING LATEX PRODUCTS SUCH RUBBER GLOVES, CONDOMS, DIAPHRAGMS, BALLOONS, SOCKS, OR UNDERWEAR?NO LATEX ALLERGY : HAVE YOU EVER DEVELOPED ANY TYPE OF REACTION DURING OR AFTER DENTAL APPOINTMENT, VAGINAL/RECTAL EXAMINATION, SURGICAL PROCEDURE, OR ANY OTHER EXPOSURE?NO LATEX RISK : HAVE YOU EVER HAD ANY DIFFICULTY BREATHING OR HIVES AFTER EATING OR HANDLING ANY FRUITS, OR VEGETABLES; SUCH KIWI, BANANAS, STONE FRUITS, OR CHESTNUTSNO LATEX RISK : DO YOU HAVE A PREVIOUS PERSONAL HISTORY OF MORE THAN NINE SURGERIES, SPINA BIFIDA, OR REPEATED CATHERIZATIONS? NO LATEX RISK : ARE YOU FREQUENTLY EXPOSED TO LATEX PRODUCTS IN YOUR OCCUPATION?NO DATE ASKED : 12/31/2020 ALCOHOL USE: NO. ALCOHOL SCREENING DID YOU HAVE A DRINK CONTAINING ALCOHOL IN THE PAST YEAR?YES HOW OFTEN DID YOU HAVE SIX OR MORE DRINKS ON ONE OCCASION IN THE PAST YEAR?NEVER (0 POINTS) HOW MANY DRINKS DID YOU HAVE ON A TYPICAL DAY WHEN YOU WERE DRINKING IN THE PAST YEAR?1 OR 2 (0 POINTS) HOW OFTEN DID YOU HAVE A DRINK CONTAINING ALCOHOL IN THE PAST YEAR?MONTHLY OR LESS (1 POINT) POINTS1 INTERPRETATIONNEGATIVE RECREATIONAL DRUG USE DRUG USE?NO CAFFEINE CAFFEINE USE?YES HOW OFTEN AND HOW MUCH? COFFEE YAZIDI [id number] ANGLICAN LANGUAGE LANGUAGES SPOKEN:NAMIBIAN EDUCATION LEVEL OF EDUCATION:FINISHED COLLEGE LEARNING BARRIERS / SPECIAL NEEDS CHANGE FROM LAST VISIT?NO BARRIERS TO LEARNING?NO HEARING IMPAIRED?YES :HEARING AIDES BILATERAL HEARING AIDES VISION IMPAIRED?NO COGNITIVELY IMPAIRED?NO READINESS TO LEARN?YES LEARNING PREFERENCES?YES :HANDOUTS, DEMONSTRATION/VERBAL INSTRUCTION LEARNING CAPABILITIES PRESENT?YES EMOTIONAL BARRIERS?NO SPECIAL DEVICES?NO IRB COMPLIANCE COORDINATOR NEEDED?NO DOMESTIC VIOLENCE DO YOU FEEL SAFE IN YOUR ENVIRONMENT?YES OCCUPATION: RETIRED. DIET: REGULAR. MARITAL STATUS: . TODAY'S VISITNOTES 12/14/2019 PATIENT DESCRIBES PAIN :IT COMES AND GOES, SHARP FROM 0-10, WHAT LEVEL IS YOUR PAIN TODAY?4 - WAS THE PROVIDER NOTIFIED OF ANY PERTINENT INFO?YES HAS THE PATIENT BEEN EDUCATED REGARDING HIS/HER PLAN OF CARE?YES HAS THE PATIENT BEEN EDUCATED REGARDING PAIN, THE RISK FOR PAIN, THE IMPORTANCE OF EFFECTIVE PAIN MANAGEMENT, AND THE PAIN ASSESSMENT PROCESS?YES ADVANCE DIRECTIVE ADVANCE DIRECTIVE DISCUSSED WITH PATIENT:YES HCP - PATEL QUEEN (STEP DAUGHTER) & HANNAH OH (FRIEND), DOCUMENT NOT PROVIDED. REVIEW OF SYSTEMS CONSTITUTIONAL: ANY RECENT FEVER NO . CHILLS NO . WEIGHT CHANGE OF UNKNOWN REASONS NO . GASTROENTEROLOGY: NEW UNEXPLAINABLE CHANGES IN BOWEL CONTROL NO . CONSTIPATION NO . GENITOURINARY: ANY NEW CHANGE IN BLADDER CONTROL? NO . NEUROLOGY: NEW ONSET DIZZINESS OR NEUROLOGICAL CHANGES NOT MENTIONED NO . NEW NUMBNESS OR PAIN PATTERNS NOT MENTIONED AND PERTINENT TO TODAY'S VISIT NO . CARDIOLOGY: NEW CHEST PRESSURE NO . PATIENT DENIES NO . RESPIRATORY: UNEXPLAINABLE COUGH NO . NEW SHORTNESS OF BREATH NO . VITAL SIGNS WT 168 LBS, HT 62 IN, BMI 30.72 INDEX, BP 123/67 MM HG, HR 83 /MIN, RR 18 /MIN, TEMP 97.9 F, OXYGEN SAT % 96%, SAFE IN ENV? (Y/N) YES, NA INITIALS , REVIEWED BY: GM JO MA. EXAMINATION GENERAL EXAMINATION: GENERALNO ACUTE DISTRESS, WELL NOURISHED AND HYDRATED. PSYCHAPPROPRIATE MOOD AND AFFECT . LUNGS:CLEAR TO AUSCULTATION BILATERALLY, NO WHEEZES, RHONCHI, RALES. HEART:NO MURMURS, REGULAR RATE AND RHYTHM. BACK:DENIES POINT TENDERNESS ALONG THORACIC SPINE,. 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 GIVEN PRESENTING SYMPTOMS AND RESULTS OF PHYSICAL EXAMINATION RECOMMENDED BILATERAL THERAPEUTIC THORACIC FACET BLOCK T8-T9 T10-T11 WITH POSTPROCEDURAL FOLLOW-UP. PATIENT HAS EXPRESSED UNDERSTANDING OF AND WAS IN AGREEMENT WITH TREATMENT PLAN. GIVEN TIME TO ASK QUESTIONS AND EXPRESS CONCERNS. CLINICAL NOTES: PREPROCEDURE AND PROCEDURE INFORMATION PRINTED AND PROVIDED TO PATIENT. PATIENT VERBALIZED AN UNDERSTANDING. MED HOLD REQUEST FAXED TO DR. LEONARDO RAE FOR PERMISSION TO HOLD XARELTO FOR PROCEDURE. SONIA JO MA. PROCEDURE CODES FA211 ESTABILISHED PATIENT [facility] CHARGE DISPOSITION & COMMUNICATION FOLLOW UP POST PROCEDURE (REASON: BILATERAL THERAPEUTIC THORACIC FACET BLOCK T8-T9,T10-T11 NEED HOLD ORDER FOR XARELTO ) ELECTRONICALLY SIGNED BY KERI YEUNG ON 01/01/2021 AT 11:19 AM EDT DISCLAIMER : THIS IS A VISIT SUMMARY EXTRACTED FROM THE [employer] CHART. IT IS NOT A COPY OF THE [employer] PROGRESS NOTE. QING
== END ==
LOC: M PAIN 10:00
PROVIDERS: ATTEND Family Medicine
DX: M47.814 Spondylosis without myelopathy or radiculopathy, thoracic region (principal); G89.29 Other chronic pain; E03.9 Hypothyroidism, unspecified; K21.9 Gastro-esophageal reflux disease without esophagitis; Z86.59 Personal history of other mental and behavioral disorders; Z86.711 Personal history of pulmonary embolism; Z88.1 Allergy status to other antibiotic agents; Z88.8 Allergy status to other drugs, medicaments and biological substances; Z79.01 Long term (current) use of anticoagulants; Z79.899 Other long term (current) drug therapy

== ENCOUNTER → 2021-02-04 | Outpatient (CLI) | payer MEDICARE, OTHER ==
[~2021-02-04] MED LIST changes: +OMEP40CA4 PO; -OMEP40CA97 PO
== END ==
LOC: M LABSMTC 09:56
PROVIDERS: ATTEND Anesthesiology
DX: Z01.812 Encounter for preprocedural laboratory examination (principal); Z20.822 Contact with and (suspected) exposure to COVID-19

== ENCOUNTER → 2021-02-09 | Outpatient (CLI) | payer MEDICARE, OTHER ==
[~2021-02-09] MED LIST changes: +BUPIVACAINE HCL 0.25% 30ML VIAL As Ordered ONE; +ISOVUE-M 300 61% 15ML VIAL As Ordered ONE; +LIDOCAINE 1% SDV 30ML VIAL As Ordered ONE; +TRIAMCINOLONE ACETONIDE SUSP 40 MG/ML VIAL (J3301) As Ordered ONE; +diazePAM 5MG TABLET As Ordered ONE; +oxyCODONE 5MG TAB As Ordered ONE
--- NOTE | 2021-02-09 15:49 | REP ---
INDICATION: s/p thoracic fbt, inspiratory and EXPIRATORY R/O pneumo COMPARISON: 06/23/2020 TECHNIQUE: PA and lateral. FINDINGS: The mediastinum and cardiac silhouette are normal. The lung reyna are clear and without acute consolidation, effusion, or pneumothorax. The skeletal structures are intact and normal. IMPRESSION: No acute cardiopulmonary process. <Electronically signed by Dada Bowser > 02/09/21 1548
--- NOTE | 2021-02-09 16:25 | REP ---
INDICATION: BILATERAL THERAPEUTIC THORACIC FACET BLOCK T8-T9, T10-T11. COMPARISON: None. TECHNIQUE: Intraoperative fluoroscopic imaging using portable C-arm technique. FINDINGS: Catheters and contrast along the right thoracic facet joints consistent with facet block. Total fluoroscopic time 14.3 seconds. IMPRESSION: Findings consistent with thoracic facet block. <Electronically signed by Dada Bowser > 02/09/21 [id number]
--- NOTE | 2021-02-11 03:50 | ECWPNPC ---
PATIENT NAME: SANTOSH ARNDT : 1945 GENDER: FEMALE VISIT DATE: 02/09/2021 DISCHARGE DATE: 02/09/21 1613 VISIT LOCKED DATE TIME: PHYSICIAN: SUSANNA FRANCO MD RESOURCE: SUSANNA FRANCO MD REASON FOR APPOINTMENT 1. BILATERAL THERAPEUTIC THORACIC FACET BLOCK T8-T9,T10-T11 HISTORY OF PRESENT ILLNESS GENERAL: -. FALL RISK SCREENING: SCREENING : 1 FALL REPORTED IN THE LAST YEAR - NO INJURY. PAIN SCREENING: PATIENT HAS A COMPLAINT OF ACUTE OR CHRONIC PAIN :YES LOCATION OF PAIN:MID BACK INTENSITY OF PAIN (SCALE OF 1 TO 10):8 WHAT DOES YOUR PAIN FEEL LIKE:SHARP DURATION:INTERMITTENT PAIN IS INCREASED BY:ACTIVITIES, PROLONGED STANDING YARD WORK PAIN IS DECREASED BY:OTHERS LAYING FLAT ON FLOOR, HEAT, TENS UNIT NURSING NOTE: -. PAIN CENTER INTAKE QUESTIONS: DO YOU HAVE A HISTORY OF MRSA? :NO DO YOU TAKE A BLOOD THINNERS? :YES XARELTO - LAST DOSE Tuesday02/05/21 DO YOU HAVE ANY BLEEDING DISORDERS? :YES FACTOR V ANY NEW NUMBNESS OR WEAKNESS IN YOUR LEGS OR ARMS? :NO ANY PACEMAKER,DEFIBRILLATOR, OR DORSAL COLUMN STIMULATOR? :NO DO YOU HAVE ANY RASHES OR OPEN SORES? :NO ARE YOU ALLERGIC TO IV DYE? :NO ARE YOU DIABETIC? :NO ANY NEW PROBLEMS WITH YOUR MEDICATIONS? :NO HAVE YOU RECEIVED A VACCINE IN THE PAST 30 DAYS? :NO DO YOU PLAN TO RECEIVE A VACCINE IN THE NEXT 21 DAYS? :NO DO YOU TAKE ANY IMMUNOSUPPRESSIVE MEDICATIONS? :NO ANY HISTORY OF SEIZURES? :NO ANY HISTORY OF CARDIAC ISSUES OR EVENTS? :NO DO YOU HAVE ANY KIDNEY OR LIVER DISEASE? :NO DO YOU HAVE SLEEP APNEA? :NO ANY RECENT HEAD INJURY? :NO DO YOU HAVE ANY NEW INFECTIONS? :NO IS THERE A CHANCE YOU COULD BE ? :NO ARE YOU BREAST FEEDING? :NO WHEN DID YOU LAST EAT? : 02/09 600 WHEN DID YOU LAST DRINK? : 02/09 600 WHAT DID YOU LAST DRINK? : ORANGE JUICE NAME OF PERSON DRIVING YOU HOME? : STEP-DAUGHTER PATEL DO YOU HAVE ANY OTHER QUESTIONS OR CONCERNS? : - CURRENT MEDICATIONS TAKING LEXAPRO 10 MG TABLET 1 TABLET ORALLY ONCE A DAY TAKING LEVOTHYROXINE SODIUM 25 MCG TABLET 1 TABLET ON AN EMPTY STOMACH IN THE MORNING ORALLY ONCE A DAY, NOTES: 6/28 0600 TAKING OMEPRAZOLE 20 MG CAPSULE DELAYED RELEASE 1 CAPSULE ORALLY ONCE A DAY TAKING ZYRTEC ALLERGY 10 MG TABLET 1 TABLET NEEDED ORALLY ONCE A DAY TAKING FLONASE ALLERGY RELIEF 50 MCG/ACT SUSPENSION 1 SPRAY IN EACH NOSTRIL NASALLY ONCE A DAY TAKING ADVAIR DISKUS 250-50 MCG/DOSE AEROSOL POWDER BREATH ACTIVATED 1 PUFF INHALATION ONCE A DAY NEEDED, NOTES: NONE RECENT TAKING TENS THERAPY PAIN RELIEF - DEVICE TAKING ROSUVASTATIN CALCIUM 5 MG TABLET 1 TABLET ORALLY ONCE A DAY TAKING XARELTO 15 MG TABLET 1 TABLET WITH FOOD ORALLY ONCE A DAY, NOTES: LAST DOSE 02/05/21 TAKING RECLAST 5 MG/100ML SOLUTION DIRECTED INTRAVENOUS YEARLY, NOTES: YEAR AGO TAKING OXYCODONE HCL 5 MG CAPSULE 1 CAPSULE NEEDED ORALLY BID PRN TAKING ACETAMINOPHEN EXTRA STRENGTH 500 MG TABLET 1 TABLET NEEDED ORALLY EVERY 6 HRS NOT-TAKING TRAMADOL HCL 50 MG TABLET 2 TABLETS ORALLY EVERY 6 HRS NEEDED NOT-TAKING CYCLOBENZAPRINE HCL 5 MG TABLET 1 TABLET NEEDED ORALLY THREE TIMES A DAY NOT-TAKING RANITIDINE HCL 300 MG CAPSULE 1 CAPSULE ORALLY ONCE A DAY NOT-TAKING ASA 2 81 MG TABS ORAL NOT-TAKING GABAPENTIN 100 MG CAPSULE 1 CAPSULE ORALLY TWICE A DAY NOT-TAKING SIMVASTATIN 20 MG TABLET 1 TABLET IN THE EVENING ORALLY ONCE A DAY MEDICATION LIST REVIEWED AND RECONCILED WITH THE PATIENT PAST MEDICAL HISTORY CHRONIC BACK PAIN DDD HYPOTHYROIDISM ALLERGIES ELEVATED CHOLESTEROL DEPRESSION GERD OSTEOARTHRITIS ANXIETY PULMONARY EMBOLISM FACTOR 5 LIEDEN SYNDROME THORACIC SPINE FRACTURE ALLERGIES CLARITHROMYCIN: ANAPHYLAXIS - ALLERGY SPORANOX: HIVES - ALLERGY TIZANIDINE HCL: CONFUSION - SIDE EFFECTS SOCIAL HISTORY GENERAL: TOBACCO USE ARE YOU A:NONSMOKER LATEX QUESTIONNAIRE LATEX ALLERGY : HAVE YOU EVER DEVELOPED ANY TYPE OF REACTION AFTER HANDLING LATEX PRODUCTS SUCH RUBBER GLOVES, CONDOMS, DIAPHRAGMS, BALLOONS, SOCKS, OR UNDERWEAR?NO LATEX ALLERGY : HAVE YOU EVER DEVELOPED ANY TYPE OF REACTION DURING OR AFTER DENTAL APPOINTMENT, VAGINAL/RECTAL EXAMINATION, SURGICAL PROCEDURE, OR ANY OTHER EXPOSURE?NO LATEX RISK : HAVE YOU EVER HAD ANY DIFFICULTY BREATHING OR HIVES AFTER EATING OR HANDLING ANY FRUITS, OR VEGETABLES; SUCH KIWI, BANANAS, STONE FRUITS, OR CHESTNUTSNO LATEX RISK : DO YOU HAVE A PREVIOUS PERSONAL HISTORY OF MORE THAN NINE SURGERIES, SPINA BIFIDA, OR REPEATED CATHERIZATIONS? NO LATEX RISK : ARE YOU FREQUENTLY EXPOSED TO LATEX PRODUCTS IN YOUR OCCUPATION?NO DATE ASKED : 02/04/2021 ALCOHOL USE: NO. ALCOHOL SCREENING DID YOU HAVE A DRINK CONTAINING ALCOHOL IN THE PAST YEAR?YES HOW OFTEN DID YOU HAVE SIX OR MORE DRINKS ON ONE OCCASION IN THE PAST YEAR?NEVER (0 POINTS) HOW MANY DRINKS DID YOU HAVE ON A TYPICAL DAY WHEN YOU WERE DRINKING IN THE PAST YEAR?1 OR 2 (0 POINTS) HOW OFTEN DID YOU HAVE A DRINK CONTAINING ALCOHOL IN THE PAST YEAR?MONTHLY OR LESS (1 POINT) POINTS1 INTERPRETATIONNEGATIVE RECREATIONAL DRUG USE DRUG USE?NO CAFFEINE CAFFEINE USE?YES HOW OFTEN AND HOW MUCH? COFFEE BUDDHIST [id number] ZOROASTRIANISM LANGUAGE LANGUAGES SPOKEN:ICELANDIC EDUCATION LEVEL OF EDUCATION:FINISHED COLLEGE LEARNING BARRIERS / SPECIAL NEEDS CHANGE FROM LAST VISIT?NO BARRIERS TO LEARNING?NO HEARING IMPAIRED?YES :HEARING AIDES BILATERAL HEARING AIDES VISION IMPAIRED?NO COGNITIVELY IMPAIRED?NO READINESS TO LEARN?YES LEARNING PREFERENCES?YES :HANDOUTS, DEMONSTRATION/VERBAL INSTRUCTION LEARNING CAPABILITIES PRESENT?YES EMOTIONAL BARRIERS?NO SPECIAL DEVICES?NO LARD MIXER NEEDED?NO DOMESTIC VIOLENCE DO YOU FEEL SAFE IN YOUR ENVIRONMENT?YES OCCUPATION: RETIRED. DIET: REGULAR. MARITAL STATUS: . TODAY'S VISITNOTES 12/14/2019 PATIENT DESCRIBES PAIN :IT COMES AND GOES, SHARP FROM 0-10, WHAT LEVEL IS YOUR PAIN TODAY?4 - WAS THE PROVIDER NOTIFIED OF ANY PERTINENT INFO?YES HAS THE PATIENT BEEN EDUCATED REGARDING HIS/HER PLAN OF CARE?YES HAS THE PATIENT BEEN EDUCATED REGARDING PAIN, THE RISK FOR PAIN, THE IMPORTANCE OF EFFECTIVE PAIN MANAGEMENT, AND THE PAIN ASSESSMENT PROCESS?YES ADVANCE DIRECTIVE ADVANCE DIRECTIVE DISCUSSED WITH PATIENT:YES HCP - PATEL QUEEN (STEP DAUGHTER) & HANNAH OH (FRIEND), DOCUMENT NOT PROVIDED. VITAL SIGNS WT 169.2 LBS, HT 62 IN, BMI 30.94 INDEX, BP 136/76 MM HG, HR 93 /MIN, RR 18 /MIN, TEMP 98.0 F, OXYGEN SAT % 94%, SAFE IN ENV? (Y/N) Y, NA INITIALS AW 1318, REVIEWED BY: Vianney TORRES RN. EXAMINATION GENERAL: THE PATIENT IS ALERT, ORIENTED TIMES THREE AND COOPERATIVE. LUNGS ARE CLEAR TO AUSCULTATION. HEART SHOWS REGULAR RHYTHM, NO MURMURS AND NO GALLOPS. ASSESSMENTS SPONDYLOSIS OF THORACIC REGION WITHOUT MYELOPATHY OR RADICULOPATHY - M47.814 (PRIMARY) TREATMENT SPONDYLOSIS OF THORACIC REGION WITHOUT MYELOPATHY OR RADICULOPATHY [facility] FACET BLOCK (PAIN)[id number] SALINE LOCKBIN MOORE 02/09/2021 2:21:40 PM > #22 SALINE LOCK STARTED X 1 ATTEMPT BY THIS WALL WASHER IN LEFT HAND. SITE ASYMPTOMATIC, FLUSHES WELL. PATIENT TOLERATED PROCEDURE WELL. MEDICATION: OXYCODONE HCL TAB 10MG ORALLYHANNAH MCKEON 02/09/2021 2:09:55 PM > VERIFIED ABIOLA TORRES 02/09/2021 2:19:06 PM > ADMINISTERED COMPLETION OF PROCEDURAL VISIT WHEN MEETS CRITERIADESATISH TRAVISITA 02/09/2021 4:06:34 PM > CRITERIA MET AT 1600 MEDICATION: VALIUM TAB 5MG ORALLY (DIAZEPAM)HANNAH MCKEON 02/09/2021 2:09:38 PM > VERIFIED SATISH TORRESITA 02/09/2021 2:19:31 PM > ADMINISTERED OTHERS NOTES: 02/04/21 1025 PAT COMPLETED. Arsen BAH RN. PROCEDURES PAIN NURSING RECORD PROCEDURE IN ROOM 1454, PHYSICIAN IN ROOM 1505, START 1516, FINISH 1520, PHYSICIAN OUT OF ROOM 1522, OUT OF ROOM 1527, ECG NORMAL SINUS, PATIENT SHIELDED YES, SAFETY STRAP YES, PREP CHLOROPREP Andree NELSON RN, DRESSING TEGADERM DR. FRANCO LOC: MELISSA,ABIOLA 02/09/2021 2:25:35 PM > 1. ALERT, ORIENTED MELISSA,ABIOLA 02/09/2021 3:49:55 PM > 1. ALERT, ORIENTED RESP: MELISSAABIOLA ALBARRAN 02/09/2021 2:25:40 PM > 1. REGULAR, NO DYSPNEA MELISSAABIOLA 02/09/2021 3:50:09 PM > 1. REGULAR, NO DYSPNEA COLOR: MELISSA,ABIOLA 02/09/2021 2:25:44 PM > 1. PINK ABIOLA TORRES 02/09/2021 3:50:15 PM > 1. PINK SKIN: MELISSA,ABIOLA 02/09/2021 2:25:49 PM > 1. WARM, DRY ABIOLA TORRES 02/09/2021 3:50:20 PM > 1. WARM, DRY POSITION: ABIOLA TORRES 02/09/2021 2:59:03 PM > 1. PRONE ABIOLA TORRES 02/09/2021 3:50:30 PM > 5. SITTING VITALS: 1435 P 74 R18 02 96% BP 129/67 AW 1450 P 80 02 93% BP 131/72 AW ABIOLA TORRES 02/09/2021 2:59:16 PM > 151/74,84,16,98% ABIOLA TORRES 02/09/2021 3:12:06 PM > 144/69,85,16,95% ABIOLA TORRES 02/09/2021 3:25:36 PM > 145/75,80,16,95% ABIOLA TORRES 02/09/2021 3:50:37 PM > 132/75,91,16,95% NOTES 1532 TO XRAY VIA W/C. Vianney TORRES RN [id number] RETURNED FROM XRAY VIA W/C. Vianney TORRES RN [id number] DR. FRANCO REVIEWED THE SYNASP REPORT OF CHEST XRAY-OKAY TO D/C PATIENT. Vianney TORRES RN COMPLETION OF PROCEDURE APPOINTMENT: POST PAIN 0, DRESSING SITE DRY AND INTACT, IV DISCONTINUED, CATHETER INTACT IV SITE ECCHYMOTIC, GAIT STEADY, TEACHING COMPLETED, PATIENT ACKNOWLEDGES UNDERSTANDING YES, PROCEDURE APPOINTMENT COMPLETED AT 1600 BY: Vianney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id number] INJ PARAVERT F JNT C/T 2 LEV, MODIFIERS: 50 DISPOSITION & COMMUNICATION FOLLOW UP FOLLOW UP WITH GOLF CART REPAIRER (REASON: POST BILATERAL THERAPEUTIC THORACIC FACET BLOCK T8-T9, T10-T11) ELECTRONICALLY SIGNED BY SUSANNA FRANCO MD, MD ON 02/10/2021 AT 10:57 AM EDT DISCLAIMER : THIS IS A VISIT SUMMARY EXTRACTED FROM THE [employer] CHART. IT IS NOT A COPY OF THE [employer] PROGRESS NOTE. QING
== END ==
LOC: M PAIN 13:20
PROVIDERS: ATTEND Anesthesiology
DX: M47.814 Spondylosis without myelopathy or radiculopathy, thoracic region (principal); E03.9 Hypothyroidism, unspecified; E78.00 Pure hypercholesterolemia, unspecified; F32.9 Major depressive disorder, single episode, unspecified; K21.9 Gastro-esophageal reflux disease without esophagitis; M19.90 Unspecified osteoarthritis, unspecified site; D68.2 Hereditary deficiency of other clotting factors; F41.9 Anxiety disorder, unspecified; Z86.711 Personal history of pulmonary embolism; Z79.01 Long term (current) use of anticoagulants; Z79.899 Other long term (current) drug therapy; Z79.891 Long term (current) use of opiate analgesic; Z88.1 Allergy status to other antibiotic agents; Z88.8 Allergy status to other drugs, medicaments and biological substances
CPT/HCPCS: 64490; 64491; 71046; J3301; Q9967

== ENCOUNTER 2021-02-20 14:55 | Outpatient (CLI) | payer MEDICARE, BC, OTHER ==
[~2021-02-20] VITALS: Ht 157.5 cm; Wt 75.9 kg
[~2021-02-20 14:55] MED LIST changes: -BUPIVACAINE HCL 0.25% 30ML VIAL As Ordered ONE; -ISOVUE-M 300 61% 15ML VIAL As Ordered ONE; -LIDOCAINE 1% SDV 30ML VIAL As Ordered ONE; -TRIAMCINOLONE ACETONIDE SUSP 40 MG/ML VIAL (J3301) As Ordered ONE; -diazePAM 5MG TABLET As Ordered ONE; -oxyCODONE 5MG TAB As Ordered ONE
[2021-02-20 15:00] VITALS: BP 154/77
[2021-02-20] MEDS ORDERED: ZOLEDRONIC ACID 5 MG in IV 1 EA IV ONE (15:00)
[2021-02-20] MEDS ORDERED: OXYC1TAB23 PO (16:01)
[2021-02-20 16:10] VITALS: BP 125/76
== END 2021-02-20 16:10 | disposition home or self-care (01) ==
LOC: M INFU 14:55
PROVIDERS: ATTEND Internal Medicine
DX: M81.0 Age-related osteoporosis without current pathological fracture (principal); Z88.1 Allergy status to other antibiotic agents
CPT/HCPCS: 96365; J3489

== ENCOUNTER → 2021-02-23 | Outpatient (CLI) | payer MEDICARE, OTHER, BC ==
[~2021-02-23] MED LIST changes: +OMEP-173 PO; -OMEP-218 PO; +OXYC1TAB23 PO; +TIZA10TA; +TIZA10TA PO; -TIZA4TAB4; -TIZA4TAB4 PO
== END ==
LOC: M PAIN 10:45
PROVIDERS: ATTEND Family Medicine
DX: M47.814 Spondylosis without myelopathy or radiculopathy, thoracic region (principal); G89.29 Other chronic pain; E03.9 Hypothyroidism, unspecified; K21.9 Gastro-esophageal reflux disease without esophagitis; Z86.59 Personal history of other mental and behavioral disorders; Z86.711 Personal history of pulmonary embolism; Z88.1 Allergy status to other antibiotic agents; Z88.8 Allergy status to other drugs, medicaments and biological substances; Z79.01 Long term (current) use of anticoagulants; Z79.899 Other long term (current) drug therapy

== ENCOUNTER → 2021-03-18 | Outpatient (CLI) | payer MEDICARE, OTHER ==
[~2021-03-18] MED LIST changes: -OMEP-173 PO; +OMEP-218 PO; -TIZA10TA; -TIZA10TA PO; +TIZA4TAB4; +TIZA4TAB4 PO
== END ==
LOC: M LABSMTC 09:59
PROVIDERS: ATTEND Anesthesiology
DX: Z01.812 Encounter for preprocedural laboratory examination (principal); Z20.822 Contact with and (suspected) exposure to COVID-19

== ENCOUNTER → 2021-03-23 | Outpatient (CLI) | payer MEDICARE, OTHER ==
[~2021-03-23] MED LIST changes: +BUPIVACAINE HCL 0.25% 30ML VIAL As Ordered ONE; +ISOVUE-M 300 61% 15ML VIAL As Ordered ONE; +LIDOCAINE 1% SDV 30ML VIAL As Ordered ONE
--- NOTE | 2021-03-23 17:09 | REP ---
INDICATION: R/O PNEUMOTHORAX. COMPARISON: Comparison chest x-ray February 09, 2021. TECHNIQUE: Two views.. FINDINGS: The patient is status post cervical spine discectomy and ventral fusion plating. There are degenerative disc changes in the thoracic spine. Heart is not enlarged. The lungs are well inflated and clear. The pleural angles are sharp. Pulmonary vasculature is not increased. There are clips in right upper quadrant of the abdomen. IMPRESSION: No active cardiopulmonary disease.. <Electronically signed by Jared George > 03/23/21 [id number]
--- NOTE | 2021-03-23 17:48 | REP ---
INDICATION: LEFT DIAGNOSIC FACET BLOCK T8-T9,T9-T10,T10-T11. COMPARISON: None. TECHNIQUE: Two views. 44.7 seconds of fluoroscopy time is reported. FINDINGS: A sequence of 2 last image hold fluoroscopically obtained spot radiograph(s) of the thoracic spine document(s) needle position(s) and contrast injection associated with injection procedure. IMPRESSION: Procedural imaging. <Electronically signed by Jared George > 03/23/21 [id number]
== END ==
LOC: M PAIN 13:45
PROVIDERS: ATTEND Anesthesiology
DX: M54.6 Pain in thoracic spine (principal); M47.814 Spondylosis without myelopathy or radiculopathy, thoracic region; G89.29 Other chronic pain; E03.9 Hypothyroidism, unspecified; K21.9 Gastro-esophageal reflux disease without esophagitis; Z86.59 Personal history of other mental and behavioral disorders; Z86.711 Personal history of pulmonary embolism; Z88.1 Allergy status to other antibiotic agents; Z88.8 Allergy status to other drugs, medicaments and biological substances; Z79.01 Long term (current) use of anticoagulants; Z79.899 Other long term (current) drug therapy
CPT/HCPCS: 64490; 64491; 64492; 71046; Q9967

== ENCOUNTER → 2021-03-25 | Outpatient (CLI) | payer MEDICARE, OTHER ==
[~2021-03-25] MED LIST changes: -BUPIVACAINE HCL 0.25% 30ML VIAL As Ordered ONE; -ISOVUE-M 300 61% 15ML VIAL As Ordered ONE; -LIDOCAINE 1% SDV 30ML VIAL As Ordered ONE
== END ==
LOC: M PAIN 09:15
PROVIDERS: ATTEND Nurse Practitioner Family
DX: M47.814 Spondylosis without myelopathy or radiculopathy, thoracic region (principal); G89.29 Other chronic pain; E03.9 Hypothyroidism, unspecified; K21.9 Gastro-esophageal reflux disease without esophagitis; Z86.59 Personal history of other mental and behavioral disorders; Z86.711 Personal history of pulmonary embolism; Z88.1 Allergy status to other antibiotic agents; Z88.8 Allergy status to other drugs, medicaments and biological substances; Z79.01 Long term (current) use of anticoagulants; Z79.899 Other long term (current) drug therapy

== ENCOUNTER → 2021-04-23 | Outpatient (CLI) | payer MEDICARE, OTHER | LOC: M LABSMTC 09:10 | PROVIDERS: ATTEND Anesthesiology | DX: Z01.812 Encounter for preprocedural laboratory examination (principal); Z20.822 Contact with and (suspected) exposure to COVID-19 ==

== ENCOUNTER → 2021-04-28 | Outpatient (CLI) | payer MEDICARE, OTHER ==
[~2021-04-28] MED LIST changes: +BUPIVACAINE HCL 0.25% 30ML VIAL As Ordered ONE; +ISOVUE-M 300 61% 15ML VIAL As Ordered ONE; +LIDOCAINE 1% SDV 30ML VIAL As Ordered ONE
--- NOTE | 2021-04-28 13:37 | REP ---
INDICATION: LEFT DIAGNOSTIC THORACIC FACET BLOCK. COMPARISON: 02/09/2021. TECHNIQUE: Multiple C-arm views thoracic spine region. FINDINGS: Ashley are seen along the thoracic vertebral facet joints. Small amount of contrast is injected. IMPRESSION: 60 seconds of fluoroscopy time is utilized. <Electronically signed by Sonu Diaz > 04/28/21 [id number]
--- NOTE | 2021-04-28 13:50 | REP ---
INDICATION: INSPIRATORY/EXPIRATORY, R/O PNEUMOTHORAX COMPARISON: 03/23/2021. TECHNIQUE: PA/Lateral FINDINGS: Lungs: Clear, no infiltrate. There is no pneumothorax. Heart: Normal in size. Mediastinum: Mediastinal silhouette unremarkable. Pleural angles: Unremarkable.. Bones and soft tissues: There are mild degenerative changes of the spine. Metallic fixation is seen in the cervical spine. IMPRESSION: No acute pulmonary disease. <Electronically signed by Sonu Diaz > 04/28/21 [id number]
== END ==
LOC: M PAIN 11:40
PROVIDERS: ATTEND Anesthesiology
DX: M47.814 Spondylosis without myelopathy or radiculopathy, thoracic region (principal); E03.9 Hypothyroidism, unspecified; E78.00 Pure hypercholesterolemia, unspecified; F32.9 Major depressive disorder, single episode, unspecified; K21.9 Gastro-esophageal reflux disease without esophagitis; F41.9 Anxiety disorder, unspecified; Z86.711 Personal history of pulmonary embolism; Z79.891 Long term (current) use of opiate analgesic; Z79.01 Long term (current) use of anticoagulants; Z79.899 Other long term (current) drug therapy; Z88.1 Allergy status to other antibiotic agents; Z88.8 Allergy status to other drugs, medicaments and biological substances
CPT/HCPCS: 64490; 64491; 64492; 71046; Q9967

== ENCOUNTER → 2021-05-08 | Outpatient (CLI) | payer MEDICARE, OTHER ==
[~2021-05-08] MED LIST changes: -BUPIVACAINE HCL 0.25% 30ML VIAL As Ordered ONE; -ISOVUE-M 300 61% 15ML VIAL As Ordered ONE; -LIDOCAINE 1% SDV 30ML VIAL As Ordered ONE
== END ==
LOC: M PAIN 14:45
PROVIDERS: ATTEND Anesthesiology
DX: M47.814 Spondylosis without myelopathy or radiculopathy, thoracic region (principal); G89.29 Other chronic pain; E03.9 Hypothyroidism, unspecified; K21.9 Gastro-esophageal reflux disease without esophagitis; Z86.59 Personal history of other mental and behavioral disorders; Z86.711 Personal history of pulmonary embolism; Z96.653 Presence of artificial knee joint, bilateral; Z88.1 Allergy status to other antibiotic agents; Z88.8 Allergy status to other drugs, medicaments and biological substances; Z79.01 Long term (current) use of anticoagulants; Z79.899 Other long term (current) drug therapy

== ENCOUNTER → 2021-07-08 | Outpatient (CLI) | payer MEDICARE, OTHER | LOC: M LABSMTC 10:07 | PROVIDERS: ATTEND Anesthesiology | DX: Z01.812 Encounter for preprocedural laboratory examination (principal); Z20.822 Contact with and (suspected) exposure to COVID-19 ==

== ENCOUNTER → 2021-10-16 | Outpatient (CLI) | payer MEDICARE, OTHER ==
[~2021-10-16] MED LIST changes: -D31000TA2 PO; +OMEP-173 PO; -OMEP-218 PO; +TIZA10TA; +TIZA10TA PO; -TIZA4TAB4; -TIZA4TAB4 PO; +VITA100093 PO
== END ==
LOC: M PAIN 09:45
PROVIDERS: ATTEND Nurse Practitioner Family
DX: M47.814 Spondylosis without myelopathy or radiculopathy, thoracic region (principal); G89.29 Other chronic pain; E03.9 Hypothyroidism, unspecified; K21.9 Gastro-esophageal reflux disease without esophagitis; Z86.59 Personal history of other mental and behavioral disorders; Z86.711 Personal history of pulmonary embolism; Z96.653 Presence of artificial knee joint, bilateral; Z88.1 Allergy status to other antibiotic agents; Z88.8 Allergy status to other drugs, medicaments and biological substances; Z79.01 Long term (current) use of anticoagulants; Z79.82 Long term (current) use of aspirin; Z79.899 Other long term (current) drug therapy

== ENCOUNTER → 2021-11-05 | Outpatient (CLI) | payer MEDICARE, BC, OTHER | LOC: M RAD 12:17 | PROVIDERS: ATTEND Internal Medicine | DX: R06.00 Dyspnea, unspecified (principal); J98.4 Other disorders of lung ==

== ENCOUNTER → 2022-01-02 | Outpatient (CLI) | payer MEDICARE, BC, OTHER | LOC: M LABSMTC 10:55 | PROVIDERS: ATTEND Anesthesiology | DX: Z01.812 Encounter for preprocedural laboratory examination (principal); Z20.822 Contact with and (suspected) exposure to COVID-19 ==

== ENCOUNTER → 2022-01-07 | Outpatient (CLI) | payer MEDICARE, OTHER ==
[~2022-01-07] MED LIST changes: +BUPIVACAINE HCL 0.25% 30ML VIAL As Ordered ONE; +LIDOCAINE 1% SDV 30ML VIAL As Ordered ONE; +dexameTHASONE 10MG/1ML VIAL PRES.FREE (J1100 PER 1MG) As Ordered ONE; +diazePAM 5MG TABLET As Ordered ONE; +oxyCODONE 5MG TAB As Ordered ONE
== END ==
LOC: M PAIN 10:30
PROVIDERS: ATTEND Anesthesiology
DX: M47.814 Spondylosis without myelopathy or radiculopathy, thoracic region (principal); E03.9 Hypothyroidism, unspecified; K21.9 Gastro-esophageal reflux disease without esophagitis; Z86.59 Personal history of other mental and behavioral disorders; Z86.711 Personal history of pulmonary embolism; Z96.653 Presence of artificial knee joint, bilateral; Z88.1 Allergy status to other antibiotic agents; Z88.8 Allergy status to other drugs, medicaments and biological substances; Z79.01 Long term (current) use of anticoagulants; Z79.899 Other long term (current) drug therapy
CPT/HCPCS: 64633; 64634; 71046; J1100

== ENCOUNTER → 2022-01-18 | Outpatient (CLI) | payer MEDICARE, OTHER ==
[~2022-01-18] MED LIST changes: -BUPIVACAINE HCL 0.25% 30ML VIAL As Ordered ONE; -LIDOCAINE 1% SDV 30ML VIAL As Ordered ONE; -dexameTHASONE 10MG/1ML VIAL PRES.FREE (J1100 PER 1MG) As Ordered ONE; -diazePAM 5MG TABLET As Ordered ONE; -oxyCODONE 5MG TAB As Ordered ONE
== END ==
LOC: M PAIN 14:30
PROVIDERS: ATTEND Anesthesiology
DX: G89.4 Chronic pain syndrome (principal); M47.814 Spondylosis without myelopathy or radiculopathy, thoracic region; M54.6 Pain in thoracic spine; E03.9 Hypothyroidism, unspecified; K21.9 Gastro-esophageal reflux disease without esophagitis; Z86.59 Personal history of other mental and behavioral disorders; Z86.711 Personal history of pulmonary embolism; Z88.1 Allergy status to other antibiotic agents; Z88.8 Allergy status to other drugs, medicaments and biological substances; Z79.01 Long term (current) use of anticoagulants; Z79.899 Other long term (current) drug therapy

== ENCOUNTER 2022-02-22 13:42 | Outpatient (CLI) | payer MEDICARE, BC, OTHER ==
[~2022-02-22] VITALS: Ht 154.9 cm; Wt 76.8 kg
[2022-02-22 13:45] VITALS: BP 161/83
[2022-02-22] MEDS ORDERED: ZOLEDRONIC ACID 5 MG in IV 1 EA IV ONE (14:00)
[2022-02-22 14:05] VITALS: BP 141/73
[2022-02-22] MEDS ORDERED: CYMB1CAP5 PO (14:12)
== END 2022-02-22 14:15 | disposition home or self-care (01) ==
LOC: M INFU 13:42
PROVIDERS: ATTEND Internal Medicine
DX: M81.0 Age-related osteoporosis without current pathological fracture (principal); Z88.1 Allergy status to other antibiotic agents; Z88.8 Allergy status to other drugs, medicaments and biological substances
CPT/HCPCS: 96365; J3489

== ENCOUNTER → 2022-09-10 | Outpatient (CLI) | payer MEDICARE, BC, OTHER ==
[~2022-09-10] MED LIST changes: +CYMB1CAP5 PO
== END ==
LOC: M WHC 10:22
PROVIDERS: ATTEND Internal Medicine
DX: M85.89 Other specified disorders of bone density and structure, multiple sites (principal)

== ENCOUNTER → 2022-10-26 | Outpatient (CLI) | payer MEDICARE, BC, OTHER | LOC: M LAB 10:40 | PROVIDERS: ATTEND Internal Medicine | DX: M54.6 Pain in thoracic spine (principal); M47.814 Spondylosis without myelopathy or radiculopathy, thoracic region; Z98.1 Arthrodesis status; M41.9 Scoliosis, unspecified ==

== ENCOUNTER → 2023-04-06 | Outpatient (CLI) | payer MEDICARE, BC, OTHER | LOC: M PLAIMG 09:58 | PROVIDERS: ATTEND Pain Medicine Interventional Pain Medicine | DX: M47.817 Spondylosis without myelopathy or radiculopathy, lumbosacral region (principal); M51.26 Other intervertebral disc displacement, lumbar region; M48.061 Spinal stenosis, lumbar region without neurogenic claudication; M25.48 Effusion, other site; M71.38 Other bursal cyst, other site ==

== ENCOUNTER → 2023-06-21 | Outpatient (REF) | payer MEDICARE, BC, OTHER | LOC: M LAB REF 14:31 | PROVIDERS: ATTEND Internal Medicine | DX: N18.30 Chronic kidney disease, stage 3 unspecified (principal) ==

== ENCOUNTER → 2023-07-15 | Outpatient (REF) | payer MEDICARE, BC, OTHER | LOC: M LAB REF 12:00 | PROVIDERS: ATTEND Internal Medicine | DX: R11.0 Nausea (principal) ==

== ENCOUNTER → 2023-08-03 | Outpatient (CLI) | payer MEDICARE, BC, OTHER ==
[~2023-08-03] MED LIST changes: +E-Z-GAS II EFFERVESCENT PACKET (SODIUM BICARB./CITRIC ACID/SIMETHICONE) As Ordered ONE; +E-Z-HD 98% w/w 340GM SUSP BTL As Ordered ONE; +E-Z-PAQUE 96% w/w SUSP 176GM BTL As Ordered ONE
== END ==
LOC: M RAD 08:48
PROVIDERS: ATTEND Internal Medicine
DX: R11.2 Nausea with vomiting, unspecified (principal); K44.9 Diaphragmatic hernia without obstruction or gangrene; K21.9 Gastro-esophageal reflux disease without esophagitis

== ENCOUNTER → 2023-08-17 | Outpatient (REF) | payer MEDICARE, OTHER ==
[~2023-08-17] MED LIST changes: -E-Z-GAS II EFFERVESCENT PACKET (SODIUM BICARB./CITRIC ACID/SIMETHICONE) As Ordered ONE; -E-Z-HD 98% w/w 340GM SUSP BTL As Ordered ONE; -E-Z-PAQUE 96% w/w SUSP 176GM BTL As Ordered ONE
== END ==
LOC: M LAB REF 12:16
PROVIDERS: ATTEND Internal Medicine
DX: R11.0 Nausea (principal); R10.9 Unspecified abdominal pain

== ENCOUNTER → 2023-09-05 | Outpatient (CLI) | payer MEDICARE, BC, OTHER ==
[~2023-09-05] MED LIST changes: +GASTROGRAFIN SOLUTION 30ML As Ordered ONE; +ISOVUE-370 76% 100ML VIAL As Ordered ONE
== END ==
LOC: M RAD 07:55
PROVIDERS: ATTEND Internal Medicine
DX: R10.9 Unspecified abdominal pain (principal); R63.4 Abnormal weight loss; Z90.49 Acquired absence of other specified parts of digestive tract; Z90.710 Acquired absence of both cervix and uterus; K44.9 Diaphragmatic hernia without obstruction or gangrene; K57.30 Diverticulosis of large intestine without perforation or abscess without bleeding; I70.0 Atherosclerosis of aorta; M51.36 Other intervertebral disc degeneration, lumbar region; M51.35 Other intervertebral disc degeneration, thoracolumbar region; M41.9 Scoliosis, unspecified
CPT/HCPCS: 74178; Q9963; Q9967

== ENCOUNTER 2023-12-27 08:39 | Day surgery (SDC) | payer MEDICARE, BC ==
[~2023-12-27] VITALS: Ht 157.5 cm; Wt 63.2 kg
[~2023-12-27 08:39] MED LIST changes: -GASTROGRAFIN SOLUTION 30ML As Ordered ONE; -ISOVUE-370 76% 100ML VIAL As Ordered ONE; +OMEP40CA5 PO; +SUCR1TA PO
[2023-12-27] MEDS: NS 1,000 ML IV ONE (09:04)
[2023-12-27] MEDS ORDERED: propofoL 200 MG/20 ML VIAL As Ordered ONE (10:24)
[2023-12-27 10:30] VITALS: TEMP 97.4
[2023-12-27 10:50] VITALS: BP 116/55; O2SAT 98
== END 2023-12-27 10:57 | disposition home or self-care (01) ==
LOC: M OPP 08:39
PROVIDERS: ATTEND Internal Medicine Gastroenterology
DX: K29.50 Unspecified chronic gastritis without bleeding (principal); K21.00 Gastro-esophageal reflux disease with esophagitis, without bleeding; K44.9 Diaphragmatic hernia without obstruction or gangrene; K22.89 Other specified disease of esophagus; E03.9 Hypothyroidism, unspecified; J45.909 Unspecified asthma, uncomplicated; D68.51 Activated protein C resistance; E78.00 Pure hypercholesterolemia, unspecified; Z79.899 Other long term (current) drug therapy; Z79.01 Long term (current) use of anticoagulants; Z86.718 Personal history of other venous thrombosis and embolism; Z86.711 Personal history of pulmonary embolism; Z88.1 Allergy status to other antibiotic agents; Z88.8 Allergy status to other drugs, medicaments and biological substances; Z90.710 Acquired absence of both cervix and uterus

== ENCOUNTER → 2024-08-28 | Outpatient (REF) | payer MEDICARE, BC ==
[~2024-08-28] MED LIST changes: -ADV250INH INH; +ADVA1AER9 INH; -CYCL5TAB PO; +CYCL5TAB4 PO
== END ==
LOC: M LAB REF 12:37
PROVIDERS: ATTEND Nurse Practitioner Family
DX: N39.0 Urinary tract infection, site not specified (principal)

== ENCOUNTER → 2024-09-28 | Outpatient (CLI) | payer MEDICARE, BC | LOC: M WHC 10:19 | PROVIDERS: ATTEND Internal Medicine | DX: M85.89 Other specified disorders of bone density and structure, multiple sites (principal) ==

== ENCOUNTER → 2025-04-26 | Outpatient (CLI) | payer MEDICARE, BC ==
[~2025-04-26] MED LIST changes: -FLOM0.4C39 PO; +TAMS-18 PO
== END ==
LOC: M RAD 10:43
PROVIDERS: ATTEND Registered Nurse
DX: M54.50 Low back pain, unspecified (principal); Z98.1 Arthrodesis status; G89.29 Other chronic pain